=== PATIENT | female | born 1935 | race Caucasian/White ===

== ENCOUNTER 2016-12-31 07:12 | Inpatient (IN) | payer MEDICARE, OTHER ==
[2016-12-31] MEDS ORDERED: Clopidogrel TAB* 75 MG PO ONE (07:50)
[2016-12-31 08:09] LABS: Comments Flag Yes; Hematocrit 20 % (35-47); Mean Corpuscular HGB Conc 30 g/dl (31-36); Mean Corpuscular Hemoglobin 25 pg (27-31); Mean Corpuscular Volume 84 fL (80-97); Mean Platelet Volume 11 um3 (7.4-10.4); Red Blood Count 2.37 10^6/ul (4.0-5.4); Red Cell Distribution Width 18 % (10.5-15)
[2016-12-31 08:10] LABS: Add Diff/Slide Review? Slide Review Added
[2016-12-31 08:16] LABS: Albumin 3.3 g/dL (3.2-5.2); BUN/Creatinine Ratio 22.2 (8-20); Calcium 8.5 mg/dL (8.6-10.3); EGFR African American 40.5 (>60); EGFR Non-African American 31.5 (>60); Magnesium 1.9 mg/dL (1.9-2.7); Potassium 4.1 mmol/L (3.5-5.0); Total Bilirubin 0.8 mg/dL (0.2-1.0); Total Protein 6.3 g/dL (6.4-8.9)
[2016-12-31 08:25] LABS: Troponin I 0.13 ng/mL (<0.04)
--- NOTE | 2016-12-31 08:32 | RAD ---
Indication: Chest pain. Previous myocardial infarction. Comparison: November 25, 2016 Technique: Upright AP 0755 hours Report: Elevated lung volumes and mild to moderate coarsening of the interstitial markings. Subtle peripheral thickened interlobular markings. Small dependent pleural effusions with associated LEFT greater than RIGHT basilar atelectasis. Cardiomegaly. Mildly prominent central pulmonary vasculature. Unremarkable mediastinal contours. Gallbladder fossa level surgical clips. IMPRESSION: The constellation of findings is most consistent with mild interstitial edema. Small pleural effusions with associated LEFT greater than RIGHT basilar atelectasis. Correlate clinically to exclude pneumonia.
[2016-12-31 08:33] LABS: Hypochromasia 2+; Polychromasia 1+
[2016-12-31] MEDS ORDERED: NS 0.9% 1000 ML* 1,000 ML IV SCH (10:15)
[2016-12-31 11:05] LABS: Troponin I 0.46 ng/mL (<0.04)
[2016-12-31] MEDS ORDERED: Nitroglycerin TAB 0.4 MG* 0.4 MG TAB SL PRN (11:24)
[2016-12-31 12:08] LABS: Ferritin 19.5 ng/mL (11-307)
[2016-12-31 12:12] LABS: Folate 16.87 ng/mL (>3.99)
[2016-12-31] MEDS ORDERED: Albuterol 2.5 MG/3 ML NEB.SOL* (0.083%) INH PRN (12:34)
[2016-12-31 13:22] LABS: C Reactive Protein 4.2 mg/L (< 5.00)
[2016-12-31] MEDS: Cyanocobalamin TAB* 500 MCG PO SCH (13:44)
[2016-12-31] MEDS: Citalopram TAB* 20 MG PO SCH (13:44)
[2016-12-31] MEDS: Potassium Chlor TAB* 10 MEQ TAB.ER PO SCH (13:44)
[2016-12-31] MEDS: Magnesium Oxide TAB* 400 MG PO SCH (13:44)
[2016-12-31] MEDS: Amiodarone TAB* 200 MG PO SCH (13:44)
--- NOTE | 2016-12-31 14:50 | ED ---
Jesu Barahona Matthew, scribed for Prieto Merino MD on 12/31/16 at 0728 . HPI Chest Pain - HPI Summary HPI Summary: An 81 y/o female presents to the ED with mid chest pain since 23:30 last night. The pain lasted throughout the night, was rated 7/10 in severity, and has since resolved. She states that the pain felt like indigestion, but would not alleviate. She has not taken any medications today. Associated symptoms include nausea, dizziness, and confusion. She denies SOB and diaphoresis. The patient has a Hx of CAD. She has frequent epistaxis. Her string top sealer is Dr. Pleitez. - History of Current Complaint Chief Complaint: EDChestPainROMI Time Seen by Provider: 12/31/16 07:16 Hx Obtained From: Patient Onset/Duration: Started Hours Ago, Atraumatic, Resolved Time of Onset: 23:30 - yesterday Timing: Constant Initial Severity: Moderate Current Severity: None Pain Intensity: 7 Pain Scale Used: 0-10 Numeric Chest Pain Location: Mid Sternal Chest Pain Radiates: No Character: Other: - indigestion Associated Signs and Symptoms: Positive: Chest Pain, Dizziness, Nausea, Other: - confusion. Negative: Shortness of Breath, Diaphoresis - Allergy/Home Medications Allergies/Adverse Reactions: Allergies Allergy/AdvReac Type Severity Reaction Status Date / Time Cephalexin AdvReac Intermediate GI Upset Verified 12/31/16 07:47 Ibuprofen AdvReac Nausea Verified 12/31/16 07:47 METALS Allergy Unknown Rash Uncoded 12/31/16 07:47 CHESTNUTS Allergy LIPS SWELL Uncoded 12/31/16 07:47 AND ARE VERY PAINFUL PEANUTS Allergy Swelling Uncoded 12/31/16 07:47 Of Face,Lips,& Throat SEASONAL Allergy STUFFY Uncoded 12/31/16 07:47 HAYFEVER/ENVIRONMENTAL NOSE, WATERY EYES msg AdvReac Mild headache; Uncoded 12/31/16 07:47 jitters Home Medications: Home Medications Mupirocin 2% OINT* [Bactroban 2 % Oint*] 1 applic TOPICAL BID 12/31/16 [History Confirmed 12/31/16] PMH/Surg Hx/FS Hx/Imm Hx Endocrine/Hematology History: Reports: Hx Anticoagulant Therapy Denies: Hx Diabetes, Hx Thyroid Disease Cardiovascular History: Reports: Hx Angina - RARELY USES NITRO, Hx Cardiomegaly , Hx Coronary Artery Disease - ON MED, Hx Hypercholesterolemia, Hx Hypotension - current, Hx Hypertension - ON MED, 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, Other Cardiovascular Problems/Disorders - fem pop , L CEA, cardiac cath oct Denies: Hx Congestive Heart Failure, Hx Deep Vein Thrombosis, Hx Pacemaker/ ICD Respiratory History: Reports: Hx Asthma - POSSIBLY IN THE PAST, Hx Pneumonia Denies: Hx Chronic Obstructive Pulmonary Disease (COPD), Hx Lung Cancer GI History: Reports: Other GI Disorders - CHRONIC CONSTIPATION-TAKES LAXATIVE DAILY Denies: Hx Gall Bladder Disease, Hx Gastroesophageal Reflux Disease, Hx Gastrointestinal Bleed, Hx Ulcer, Hx Urosepsis History: Denies: Hx Kidney Stones, Hx Renal Disease, Other Problems/Disorders Musculoskeletal History: Reports: Hx Arthritis - HANDS & FEET Denies: Hx Rheumatoid Arthritis, Hx Osteoporosis Sensory History: Reports: Hx Cataracts - BILAT, Hx Contacts or Glasses Denies: Hx Hearing Aid Opthamlomology History: Reports: Hx Cataracts - BILAT, Hx Contacts or Glasses Neurological History: Reports: Hx Headaches - TAKES TRAMADOL PRN, Hx Migraine Denies: Hx Dementia, Hx Seizures, Hx Transient Ischemic Attacks (TIA) Psychiatric History: Reports: Hx Anxiety - ON MED, Hx Depression - ON MED - Cancer History Cancer Type, Location and Year: skin cancerleft leg ? type. Hx Chemotherapy: No Hx Radiation Therapy: No - Surgical History Surgery Procedure, Year, and Place[place] [facility] [place], [place] [facility] [place] surgery. BILAT.[place] [facility] [place] Left carotid endardectomy. Right first toe, first joint replacement, 2005, [place]. LIGATION OF ETHMOIDAL INTERNAL MAXILIARY ARTERIES. MYLEOGRAM. LASER SURGERY FOR EPISTAXIS X 6 OVER PAST 10 YEARS Hx Anesthesia Reactions: No - Immunization History Date of Tetanus Vaccine: up to date Date of Influenza Vaccine: up to date Infectious Disease History: No Infectious Disease History: Denies: Hx Clostridium Difficile, Hx Hepatitis, Hx Human Immunodeficiency Virus (HIV), Hx of Known/Suspected MRSA, Hx Shingles, Hx Tuberculosis, History Other Infectious Disease, Traveled Outside the [place] in Last 30 Days - Family History Known Family History: Positive: Hypertension Negative: Cardiac Disease - Social History Alcohol Use: Rare Alcohol Amount: a glass of wine a few times a week Hx Substance Use: No Substance Use Type: Reports: None Hx Tobacco Use: Yes Smoking Status (MU): Former Smoker Type: Cigarettes Amount Used/How Often: 1 PPD Length of Time of Smoking/Using Tobacco: 47 YEARS Have You Smoked in the Last Year: No Review of Systems Constitutional: Negative Negative: Skin Diaphoresis Eyes: Negative ENT: Negative Positive: Chest Pain - since resolved Negative: Shortness Of Breath Gastrointestinal: Negative Negative: Nausea Genitourinary: Negative Musculoskeletal: Negative Skin: Negative Neurological: Other - confusion; dizziness Psychological: Normal All Other Systems Reviewed And Are Negative: Yes Physical Exam Triage Information Reviewed: Yes Vital Signs On Initial Exam: Initial Vitals Temp Pulse Resp BP Pulse Ox 98.6 F 83 16 81/56 94 12/31/16 07:15 12/31/16 07:15 12/31/16 07:15 12/31/16 07:15 12/31/16 07:15 Vital Signs Reviewed: Yes Appearance: Positive: Well-Appearing, No Pain Distress Skin: Positive: Warm, Pale Eyes: Positive: Normal, EOMI, ANDIE ENT: Positive: Normal ENT inspection Neck: Positive: Supple, Nontender Respiratory/Lung Sounds: Positive: Clear to Auscultation, Breath Sounds Present Cardiovascular: Positive: Normal, RRR. Negative: Murmur Abdomen Description: Positive: Nontender, Other: - Rectal exam done with nurse Morena in the room. Neg for gross blood and guiac neg. Musculoskeletal: Positive: Normal, Strength/ROM Intact Neurological: Positive: Normal, Sensory/Motor Intact, Alert, Oriented to Person Place, Time, CN Intact II-III Psychiatric: Positive: Normal - Nichelle Coma Scale Best Eye Response: 4 - Spontaneous Best Motor Response: 6 - Obeys Commands Best Verbal Response: 5 - Oriented Coma Scale Total: 15 Diagnostics - Vital Signs Vital Signs Temp Pulse Resp BP Pulse Ox 12/31/16 07:15 98.6 F 83 16 81/56 94 - Laboratory Lab Results: Lab Results 12/31/16 Range/Units 07:30 WBC 9.0 (3.5-10.8) 10^3/ul RBC 2.37 L (4.0-5.4) 10^6/ul Hgb Pending Hct 20 L (35-47) % MCV 84 (80-97) fL MCH 25 L (27-31) pg MCHC 30 L (31-36) g/dl RDW 18 H (10.5-15) % Plt Count 185 (150-450) 10^3/ul MPV 11 H (7.4-10.4) um3 Neut % (Auto) 68.8 (38-83) % Lymph % (Auto) 18.4 L (25-47) % Coosa % (Auto) 9.4 H (1-9) % Eos % (Auto) 2.3 (0-6) % Baso % (Auto) 1.1 (0-2) % Absolute Neuts (auto) 6.2 (1.5-7.7) 10^3/ul Absolute Lymphs (auto) 1.7 (1.0-4.8) 10^3/ul Absolute Monos (auto) 0.8 (0-0.8) 10^3/ul Absolute Eos (auto) 0.2 (0-0.6) 10^3/ul Absolute Basos (auto) 0.1 (0-0.2) 10^3/ul Absolute Nucleated RBC 0.01 10^3/ul Nucleated RBC % 0.1 Result Diagrams: 12/31/16 07:30 12/31/16 07:30 Lab Statement: Any lab studies that have been ordered have been reviewed, and results considered in the medical decision making process. - Radiology CXR Xray Interpretation: Positive (See Comments) Radiology Interpretation Completed By: Radiologist - EKG 7:10 Cardiac Rate: NL - 72 bpm EKG Rhythm: Sinus Rhythm EKG Interpretation: LBBB EKG Comparison: No Significant Change - 12/23/16 Chest Pain Course/Dx - Course Course Of Treatment: 81 yr old with elevation of troponin, and anemia. she has CAD. She states she has chronic nose bleeds. Rectal negative for blood. She will be admitted by hospitalists, most likely transfused and further worked up by them. - Diagnoses Provider Diagnoses: Chest pain, Anemia - Provider Notifications Discussed Care Of Patient With: Dr. Richard (Hospitalist) at 09:11 -- Notified of patient's history and will admit the patient. Discharge - Discharge Plan Condition: Stable Disposition: ADMITTED TO [facility] Referrals: Grecia Anderson MD [Primary Care Provider] - The documentation as recorded by the scribeJesu Matthew accurately reflects the service I personally performed and the decisions made by me, Prieto Merino MD.
[2016-12-31] MEDS ORDERED: Furosemide IV* 10 MG/ML 10 ML VIAL (100 MG) IV ONE (15:00)
[2016-12-31] MEDS ORDERED: Furosemide IV* 10 MG/ML 2 ML VIAL (20 MG) IV ONE (15:00)
[2016-12-31 16:01] LABS: Urine Bacteria Absent (Absent); Urine Bilirubin Negative (Negative); Urine Glucose Negative (Negative); Urine Nitrite Negative (Negative)
[2016-12-31 17:25] LABS: Hematocrit 32 % (35-47); Hemoglobin 10.3 g/dl (12.0-16.0); Maturation Factor Retic 1.5; Mean Corpuscular HGB Conc 32 g/dl (31-36); Mean Corpuscular Hemoglobin 27 pg (27-31); Mean Corpuscular Volume 83 fL (80-97); Mean Platelet Volume 11 um3 (7.4-10.4); Red Blood Count 3.88 10^6/ul (4.0-5.4); Red Cell Distribution Width 17 % (10.5-15); White Blood Count 11.4 10^3/ul (3.5-10.8)
--- NOTE | 2016-12-31 18:06 | PN ---
Progress Note - Progress Note SOAP: Subjective: [] Chest pain last night that did not go away. Has been tired recently but not sure when became worse. Lives a quiet life. HEMATOLOGIC HISTORY: Recurrent iron deficiency anemia, has had very low Hgb in past. GI w/u negative 4 yrs ago but did not tolerate capsule study. Repeat EGD 2016 negative. Tx PRBC in the past and IV iron in last 2014. Recently has been stable, last seen in October. Current hypothesis is periodic small bowl bleed. Acetaminophen (Tylenol Tab*) 650 mg PO Q6H PRN PRN Reason: FEVER/PAIN Albuterol (Ventolin 2.5 Mg/3 Ml Neb.Erin*) 2.5 mg INH Q4H PRN PRN Reason: SOB/WHEEZING Amiodarone HCl (Cordarone Tab*) 100 mg PO DAILY [facility] Last Admin: 12/31/16 13:44 Dose: 100 mg Atorvastatin Calcium (Lipitor*) 40 mg PO BEDTIME [facility] Citalopram Hydrobromide (Celexa Tab*) 20 mg PO DAILY [facility] Last Admin: 12/31/16 13:44 Dose: 20 mg Clonazepam (Klonopin Tab(*)) 1 mg PO BEDTIME [facility] Cyanocobalamin (Vitamin B12 Tab*) 1,000 mcg PO DAILY [facility] Last Admin: 12/31/16 13:44 Dose: 1,000 mcg Gabapentin (Neurontin Cap(*)) 600 mg PO BEDTIME [facility] Magnesium Oxide (Magox 400 Tab*) 400 mg PO DAILY [facility] Last Admin: 12/31/16 13:44 Dose: 400 mg Mupirocin (Bactroban 2 % Oint*) 1 applic TOPICAL BID [facility] Nitroglycerin (Nitroglycerin Tab 0.4 Mg*) 0.4 mg SL Q5M PRN PRN Reason: ANGINA Pantoprazole Sodium (Protonix Iv*) 40 mg IV BID [facility] Potassium Chloride (Klor Con Er Tab*) 10 meq PO DAILY [facility] Last Admin: 12/31/16 13:44 Dose: 10 meq Tramadol HCl (Ultram*) 25 mg PO TID PRN PRN Reason: PAIN Objective: [] Vital Signs Temp Pulse Resp BP Pulse Ox 99.1 F 86 22 185/70 97 12/31/16 16:00 12/31/16 17:06 12/31/16 17:06 12/31/16 17:06 02/04/17 17:06 HEENT - Pale but better then described, just finished second U PRBC. CTA Distant S1S2, regular. Good BS, NT/ND Ext w/o C/C/E, punch machine hand feet. Neuro alert and oriented but otherwise differed. Assessment: []81 year old with intermittent iron deficiency anemia thought second to occult GI bleeding. Has been quite anemic in past, Hgb to 7.2 in 02/2015. Has had negative GI work up in past and is followed by Dr. oCsta. Plan: []1. S/P transfusion of PRBC and increased Hgb 2. IV iron starting tomorrow. Ferrlecit 125 mg daily 3. Will follow counts. 4. Evaluation PVD and CAD ongoing. 5. Will need closer follow up CBC after discharge, monthly blood count.
[2016-12-31 18:20] LABS: Erythrocyte Sed Rate 27 mm/Hr (0-40)
[2016-12-31 18:30] LABS: Corrected Retic Count 1.5 % (0.5-1.5); Immature Retic Fraction 0.44
--- NOTE | 2016-12-31 18:54 | HP ---
ATTENDING PHYSICIAN ADDENDUM NOW INCLUDED ON THIS REPORT HISTORY AND PHYSICAL: DATE OF ADMISSION: 12/31/16 PROVIDER: Mary Ovalles NP ATTENDING PHYSICIAN: Minna Duckworth MD *(report dictated by Mary Ovalles NP) PRIMARY CARE PROVIDER: Dr. Grecia Anderson. CARDIOLOGISTS: Dr. Pleitez. Dr. Moody and Dr. Rehman of [facility]. ONCOLOGIST: Dr. Adams. ENT: Dr. Cornell. CHIEF COMPLAINT: Chest pain. HISTORY OF PRESENT ILLNESS: Ms. Gutierrez is an 81-year-old female with a complex past medical history including coronary artery disease status post NSTEMI in 2013, history of VT cardiac arrest thought to be secondary to hypokalemia, nonobstructive coronary artery disease, history of orthostatic hypotension, peripheral vascular disease, history of multiple myeloma, who presents to the emergency department today with complaint of sudden onset of chest pain starting in the middle of the night. Ms. Gutierrez reports over the past several months, she has had dyspnea, shortness of breath, fatigue, and has been followed closely by her piece dye worker Dr. Pleitez as well as has been referred to cardiologists Dr. Moody and Dr. Rehman in [place] at [facility]. The patient currently is being evaluated for possible need for cardiac catheterization as well as mitral valve replacement and is currently being worked up by [facility] piece dye worker at this time. In regards to the patient's chest pain she experienced in the night, she reports around 2 a.m. she woke up and had midsternal chest pain, stating it is felt like a squeezing sensation which lasted most of the night. She reports she took 3 nitroglycerin without resolution and when it did not resolve, her called EMS and she was brought to the emergency department for further evaluation. It is noted on the EMS report that her systolic blood pressure was in the 60s on arrival. In the emergency department, the patient reports that her chest pain resolved as soon as she got to the emergency department. Her troponin is noted initially to be 0.13 on admission. Her EKG shows sinus rhythm with left bundle branch block. In comparison to prior EKGs, no changes noted. As well, the patient is noted to have hemoglobin/hematocrit of 6.0/20. The patient denies any rectal bleeding. No melena. The patient denies vaginal bleeding. Denies abdominal pain, nausea, vomiting, or diarrhea. The patient reports dyspnea, shortness of breath, fatigue, dizziness with change of positions but states this has been her baseline for several months. The patient has a history of multiple myeloma being followed by Dr. Adams, last time seen was in October. She also has a history of severe epistaxis, last episode was 11/25/16 when she was seen in our emergency department and transferred to [facility] due to uncontrolled bleeding. She is not sure if she has had her hemoglobin checked since. The patient denies any recent upper respiratory symptoms. No cough, fever, or chills. PAST MEDICAL HISTORY: 1. Nonobstructive coronary artery disease. 2. 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 3. Coronary artery disease status post NSTEMI in 2013. 4. Hyperlipidemia. 5. Anxiety. 6. History of orthostatic hypotension, previously on Florinef. 7. History of aspiration pneumonia. 8. Irritable bowel syndrome. 9. B12 deficiency. 10. Peripheral vascular disease. 11. Status post carotid endarterectomy. 12. History of migraines. 13. GERD. 14. Hypertension. 15. Depression. 16. Coronary artery disease. Recent cardiac catheterization 11/26/14 at [facility] revealed a clean left main, moderate wall irregularities in the LAD, 50% occlusion in the mid circ, right coronary artery had 30% proximal occlusion followed by 40% distal occlusion. Ejection fraction was 60%. 17. Degenerative arthritis. 18. Chronic back and neck pain. PAST SURGICAL HISTORY: 1. Status post fem-pop bypass. 2. Tubal ligation. 3. Cholecystectomy in 1993. 4. ROXANNE-BSO 1983. 5. Nasal septotomy, ligation nasal arteries 1998. 6. Nasal surgery for epistaxis multiple x7 to 8 per . HOME MEDICATIONS: 1. Bactroban 2% one application topical b.i.d. 2. Acetaminophen 650 mg p.o. t.i.d. p.r.n. 3. Lipitor 40 mg p.o. at bedtime. 4. Aspirin EC low dose 81 mg p.o. daily. 5. Amiodarone 100 mg p.o. daily. 6. Neurontin 600 mg p.o. at bedtime. 7. Lexapro 10 mg p.o. daily. 8. Vitamin B12 1000 mcg p.o. daily. 9. Probiotic one cap p.o. daily. 10. Potassium chloride 10 mEq p.o. daily. 11. Nitroglycerin 0.4 mg sublingual q. 5 minutes p.r.n. 12. Melatonin 3 mg p.o. at bedtime. 13. Magnesium oxide 400 mg p.o. daily. 14. Klonopin 1 mg p.o. bedtime. 15. Rivastigmine 3 mg p.o. b.i.d. 16. Tramadol 25 mg p.o. t.i.d. p.r.n. ALLERGIES: 1. CEPHALEXIN, GI upset. 2. IBUPROFEN, nausea. 3. METALS, rash. 4. CHESTNUTS, lip swelling. 5. PEANUTS, anaphylactic reaction. 6. MSG, seasonal. FAMILY HISTORY: Reviewed and noncontributory. SOCIAL HISTORY: Former tobacco abuse, quitting approximately little over 20 years ago. The patient currently lives independently with her , Dawit Gutierrez, who she lists her healthcare proxy. REVIEW OF SYSTEMS: A 14-point review of systems was performed. All the pertinent positives and negatives are mentioned in the history of present illness. All the remaining systems are negative. PHYSICAL EXAMINATION GENERAL APPEARANCE: Alert and oriented x3, 81-year-old female, lying in the emergency room stretcher, in no acute distress. Good historian. VITAL SIGNS: Temperature is 98.9, heart rate 89, respirations 16, O2 sat 97% on 2 L nasal cannula, blood pressure 115/62. HEENT: Head is normocephalic, atraumatic. Pupils are equal, reactive to light. Good dentition. RESPIRATORY: No accessory muscle use. Lungs are clear to auscultation bilaterally. CARDIAC: S1, S2. No murmurs, rubs, or gallops appreciated. JVD noted bilaterally at 20% degree angle. ABDOMEN: Soft, nontender, nondistended. Normal bowel sounds x4. MUSCULOSKELETAL: No clubbing or cyanosis noted. SKIN: No rashes, lesions, or open wounds noted. NEUROLOGIC: Grossly intact sensation to lower extremities, intact to light touch. PSYCH: Alert and oriented x3. Appropriate to situation. LABORATORY DATA AND DIAGNOSTIC STUDIES: WBC is 9.0, RBC 2.37, HGB 6.0, HCT 20 , MCV 84, MCH 25, MCHC 30, RDW 18, platelet count 185, INR 1.02. Sodium 135, potassium 4.1, chloride 109, carbon dioxide 24, anion gap 2, BUN 35, creatinine 1.50, glucose 85, lactic acid 1.7, calcium 8.5, magnesium 1.9. Iron 15, TIBC 456, ferritin 19. Total bilirubin 0.80, AST 43, ALT 30, alkaline phosphatase 85 , lactate dehydrogenase 266. Troponin 0.13, BNP 706. Total protein 6.3, albumin 3.3, folate 16.87. Chest x-ray. Impression: The constellation of the finding was mostly consistent with mild interstitial edema. Small pleural effusions with associated left greater than right basilar atelectasis. Correlate clinically to exclude pneumonia. EKG. Sinus rhythm with left bundle branch block with the rate of 88. In comparison to prior EKGs, no changes noted. ASSESSMENT AND PLAN: Ms. Gutierrez is an 81-year-old female with past medical history of coronary artery disease, status post non-ST elevation myocardial infarction, history of ventricular tachycardia cardiac arrest thought to be secondary to hypokalemia, peripheral vascular disease, status post fem-pop bypass, and carotid endarterectomy, history of multiple myeloma who presents to the emergency department today with report of chest pain, found to have hemoglobin of 6, her troponin of 0.13. 1. Elevated troponin. The patient's chest pain has resolved since coming to the emergency department. Her second troponin is 0.46. Possibly secondary to her anemia versus demand ischemia or non-ST elevation myocardial infarction. The patient cannot be anticoagulated due to her hemoglobin of 6. Emergency room physician did gave the patient Plavix. I spoke with piece dye worker Dr. Isaacs who will see the patient in consultation. Plan to obtain records from [place] from Dr. Moody and Dr. Rehman for better understanding of the patient's medical history as she was just seen this week by Dr. Rehman. Continue to trend troponins and EKGs. 2. Anemia, unclear etiology. The patient has heme-stool negative, however it is possible she has an upper GI bleed. She had been worked up in the past for GI bleed and was supposed to undergo a capsule study but was not able to. Plan to give the patient 2 units of packed red blood cells now. Give lasix mg IV between units. H and H q. 6 hours. Question if the patient's symptoms of dyspnea, dizziness and chest pain are secondary to her anemia. Spoke with Dr. Aguilar who will see the patient in consultation - he follows her for iron deficiency anemia. 3. Coronary artery disease with history of ventricular tachycardia. Continue amiodarone, statin, hold aspirin at this time until her anemia is stable. 4. Chronic neck and back pain. Continue acetaminophen p.r.n. and hold tramadol. 5. Depression/anxiety. Continue Lexapro, hold Klonopin. 6. History of orthostatic hypotension. The patient currently is no longer on Florinef. She was noted to have soft blood pressures in the emergency department systolically in the 80s and 90s to low 100s, per patient this is her baseline. 7. Deep vein thrombosis prophylaxis. Sequential compression devices only in the setting of anemia. 8. Code status DNR, MOLST is on the chart. TIME SPENT: Approximately 75 minuets was spent on this admission. This case was discussed with attending physician Dr. Duckworth, who agrees the plan of care. MARY OVALLES NP ADDENDUM: DATE OF ADMISSION: 12/31/16 Ms. Gutierrez is an 81-year-old female with a history of coronary artery disease and iron deficiency anemia who presented to the hospital on 12/31/16, complaining of chest pain with hemoglobin of 6. Initially, her stool Hemoccult was negative for blood. The patient is being admitted to the ICU. She is going to be transfused packed red blood cells. The patient also has elevated troponin and Cardiology as well as Hematology are going to be consulted. For further details of the patient's presentation and plan, please see history and physical dictated by Mary Ovalles NP, on 12/31/16 with which I agree. MINNA DUCKWORTH MD CC: Dr. Grecia Anderson; Dr. Pleitez; Dr. Moody and Dr. Rehman of [facility]; Dr. Adams; Dr. Cornell. * [id number]/[facility] #: [id number]/[facility] #: [id number] [facility]
--- NOTE | 2016-12-31 19:34 | CONS ---
CC: Grecia Anderson MD; Tina Pleitez MD; Hospitalist CARDIOLOGY CONSULTATION: DATE OF CONSULT: 12/31/16 REASON FOR CONSULT: Chest pain and elevation in troponins. CHIEF COMPLAINT: Chest pain. HISTORY OF PRESENT ILLNESS: Ms. Gutierrez is an 81-year-old woman followed by my partner, Dr. Tina Pleitez, for coronary artery disease, peripheral vascular disease and valvular heart disease. In reviewing Dr. Pleitez's notes and talking with Dr. Rhonda Rehman at [facility] whom she saw this week, the patient had seen Dr. Toni Moody for evaluation for possible aortic and/or mitral valve surgery, she was unable to be catheterized at [facility] in October as the catheters were unable to be engaged. She saw Dr. Rehman on December 29. On exam, he felt that she likely has bilateral subclavian stenosis. An echo done in his office per verbal report showed moderate valvular disease with moderate aortic valve stenosis, moderate aortic insufficiency and moderate mitral insufficiency. His future plans included a CT angiogram with runoff to the the neck, chest and abdomen to evaluate the subclavian vessels, the carotids, the vertebrals, and the abdomen; the abdomen was to evaluate the arterial vasculature to see why there was difficulty passing the cardiac catheters in October. The patient was in her usual chronically debilitated health until this morning. She awoke with low substernal chest discomfort, it was different than her angina was in the past. There was some nausea with this and it cleared on its own without any intervention and she was pain free at the time I saw her. Dinner last night was bland, fish. She denies any epigastric or abdominal pain after eating. In the emergency room, she was found to have acute on top of chronic anemia. She has chronic renal insufficiency. Her initial troponin was mildly elevated. She was found to be quite hypotensive with peripheral blood pressures in the 60s to 80s, although clinically she looked like her blood pressures were higher. PAST MEDICAL HISTORY: Coronary artery disease, non-STEMI in October 2014. Cath showed luminal irregularities of the LAD, 50% occlusion of the left circumflex, right coronary artery had 30% proximal followed by 40% more distal occlusions. Peripheral vascular disease status post left-sided carotid endarterectomy and bilateral fem-pop bypass surgery, Ventricular tachycardia in the setting of hypokalemia, and cardiac arrest in the distant past, Valvular heart disease: aortic valve stenosis, moderate with moderate aortic insufficiency, moderate mitral stenosis, moderate to severe mitral insufficiency , Hypertension, Dyslipidemia, Hhronic headaches, Epistaxis, Degenerative arthritis. Orthostatic hypot[facility] GI bleeding with anemia, history of 2 units packed red blood cells in April 2015 , subsequently controlled with daily iron, and heme-positive stools in the past. B12 deficiency. Chronic renal insufficiency. PAST SURGICAL HISTORY: Includes; femoral bypass bilaterally in 1996, carotid endarterectomy in 2003, cholecystectomy in 1993, tubal ligation in 1973, hysterectomy in 1983, nasal septoplasty in 1998, and additional surgeries for epistaxis, ligation of the internal maxillary arteries in 1998. CURRENT INPATIENT MEDICATIONS: Include: 1. Albuterol nebulizers. 2. Amiodarone 100 mg a day. 3. Lipitor 40 mg a day. 4. Celexa 20 mg a day. 5. B12 at 1000 mg a day. 6. Neurontin 600 mg q.h.s. 7. Magnesium oxide 400 mg a day. 8. Bactroban topically. 9. Nitroglycerin p.r.n. 10. Potassium 10 mEq every day. Outpatient medications in addition to the above included: 1. Tramadol and Tylenol for headaches. 2. Aspirin 81 mg a day. 3. Probiotic. 4. Melatonin 3 mg q.h.s. 5. Magnesium oxide. 6. Klonopin 1 mg q.h.s. 7. Rivastigmine 3 mg b.i.d. ALLERGIES: Allergies and intolerance include; ASPIRIN, IBUPROFEN and BLOOD THINNERS (bleeding), METALS lead to a rash, MSG leads to hay fever, and she is allergic to CHESTNUTS. FAMILY HISTORY: According to the patient is negative for coronary or peripheral vascular disease. SOCIAL HISTORY: The patient is . Has a supportive . She stopped smoking 8 years ago. She smoked a pack and a half a day for 35 years. No alcohol intake. 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 REVIEW OF SYSTEMS: Significant in that she has chronic severe headaches, they are predominantly bilateral temporal and frontal. She has shoulder and arm pain , when she sits up she has posterior neck pain. She has nausea, she states that she is very debilitated and is unable to walk well due to feeling "wobbly" as well as bilateral hip pain left greater than right. She denies orthopnea, PND or exertional dyspnea and she denies exertional chest pain. She denies weight loss, anorexia, early satiety. She uses oxygen to sleep at night. All other review of systems was negative. PHYSICAL EXAM: The patient is a slight frail, chronically ill appearing woman, lying at 30 degrees, appears uncomfortable. She is 5 feet tall, weighs 108 pounds with a BMI of 21. Blood pressure is 112/56, pulse is 84, temperature 98.9, oxygen saturation on 2 L nasal cannula 97% to 100%. Psychologically, pleasant and cooperative. Neurologically, awake, alert, and oriented to person and place. I did not evaluate for time. Speech is articulate. Comprehension seems good and she follows commands well. Skin: Pale, but warm and dry. I did not appreciate cyanosis in the lips and nail beds. No rashes or other lesions appreciated. HEENT: Pupils are equal and round. Mucous membranes moderately moist. Tongue was midline. Neck had external and internal jugular distention. She has easily palpable carotid pulses. There is a left carotid endarterectomy scar that appears old and well healed. She has bilateral bruits , left is louder than right. Breath sounds distant but clear without wheezes, rales, or rhonchi. Coronary: Also a bit distant and muffled S1, S2 with an S4 gallop. Soft mid peaking systolic murmur heard in the right upper sternal border over the mitral area is muffled. I did not appreciate a diastolic murmur and very soft systolic murmur. Abdomen: Flat. Active bowel sounds. Soft. No epigastric discomfort. No appreciable hepatomegaly and she has bruits heard across the abdomen. She has easily palpable femoral pulses and easily palpable distal pulses on the lower extremities. The radial pulses are palpable but 1+ at best. DIAGNOSTIC STUDIES/LAB DATA: A 12-lead ECG from the emergency department today shows sinus rhythm, 88 beats a minute, QRS axis of -15. She has a left bundle branch block that is old and when this EKG is compared with her EKG of August of 2016, I do not appreciate that the ST-T wave changes seen are different. Chest x-ray showed mild interstitial edema with small pleural effusions left greater than right. Outpatient studies include: Carotid Doppler from 06/01/16 done at [facility] showing 50% to 69% occlusion on the right internal carotid artery, stable status post left carotid endarterectomy with no hemodynamic findings and there is antegrade flow in the right vertebral artery and retrograde flow within the left vertebral artery, unchanged. Transesophageal echo from 09/21/16 at [facility] showed mild to moderate left ventricular hypertrophy with an ejection fraction of 50% to 55%. Negative for patent foramen ovale. Moderate aortic insufficiency. Moderate aortic stenosis with a mean gradient of 33 mmHg and aortic valve area of 0.8 cm cleared by VTI dimensional index 0.35. Moderate mitral stenosis, moderate to severe mitral insufficiency, mean gradient across the mitral valve 9.6 mmHg. Mild tricuspid insufficiency. PA pressure unable to be estimated. EGD, 03/03/16, Dr. Martinez showed no obstructing esophageal stricture. Complete upper endoscopy into the distal duodenum without abnormalities noted. Current labs include: White count of 9, hemoglobin 6.0, hematocrit 20 ( baseline November 25 hematocrit 29 and November 03 hematocrit 35), mean cell volume 84, platelet 185. Sodium 135, potassium 4.1, chloride 109, bicarb 24, glucose 85, BUN 35, creatinine 1.58 (stable creatinine), magnesium 1.9, calcium 8.5, ferritin 19.5, TIBC 456, iron of 15, AST 43, ALT 30, troponin #1 of 0.13, troponin #2 of 0.46, BNP of 706, folate 16.87, INR 1.02. Stool guaiac was negative for heme today. On 06/01/16, LDL cholesterol was 38, total cholesterol was 110, triglycerides 68, and HDL cholesterol was 58. SUMMARY: Sirisha Gutierrez is an 81-year-old woman with diffuse vascular disease involving the coronaries and peripheral vasculature diffusely and additionally, she has valvular heart disease involving the aortic and mitral valves as above. Sirisha developed substernal/epigastric chest pain while sleeping. Has mild elevation in troponins, chronic left bundle branch block and acute on top of chronic anemia. The patient is very complex. I share Dr. Rehman's concerns about the possibility of subclavian stenosis, which could contribute to her headaches and arm pain among other symptoms and low blood pressure based on a brachial cuff. I feel we should proceed with expediting the CT angiograms with runoff to follow up on this and include one of the abdomen to evaluate her vasculature and and candidacy for cardiac catheterization from the femoral approach. For the patient's chest pain and elevated troponins, this raises the possibility of progression of her coronary atherosclerotic disease even if her pain is different than her typical anginal pattern. In addition to amiodarone, I consider adding a pure beta mercedes to her current regimen (although this may need to be done cautiously and consideration could be made for adding a low dose of amlodipine or nitrates instead, as beta mercedes can worsen peripheral vascular disease). I think we should attempt to get true arterial blood pressures, leg pressures may be more accurate, so we do not hold antianginal medications due to erroneous peripheral readings in the upper extremities. For the patient's anemia, I agree with transfusion, but additionally we need to identify potential etiology of her acute on top of chronic bleeding. If she were to undergo cath with the aim of intervention, we would need to understand her bleeding in order to determine if it would be safe for stents and antiplatelet agents in addition to the aspirin that she has been on. The patient is at risk for intestinal angina from her peripheral vascular disease as an etiology of her chest pain. She is at risk for AVM's related to her aortic valve stenosis as an acute bleeding source. For the patient's atherosclerotic risk, she stopped smoking for many years. Her lipids when last checked were under excellent control. I would continue with her statin. For the patient's congestive heart failure, she is likely going to need diuretics with her packed red blood cells and we should monitor her carefully, although her left ventricular systolic function is good, her valvular heart disease puts her at risk for diastolic congestive heart failure, especially with anemia and higher heart rates, beta blockers as above could help with this , if we can establish that in accurate central blood pressure, consideration of low dose of Cardizem might additionally be another option for her, but I would start with short acting medication and titrate. Overall, Ms. Gutierrez is an elderly woman with diffuse vascular disease and very complex presenting with chest pain, mild elevation in troponins and acute anemia. Workup as above. She is a high risk patient overall. [id number]/[facility] #: [id number] MTDD
[2016-12-31] MEDS ORDERED: Analgesic BALM* 114 GM TOPICAL PRN (20:18)
[2016-12-31] MEDS: Gabapentin CAP(*) 300 MG PO SCH (21:10)
[2016-12-31] MEDS: Pantoprazole IV* 40 MG IV SCH (21:10)
[2016-12-31] MEDS: clonazePAM TAB(*) 1 MG PO SCH (21:10)
[2016-12-31] MEDS: Atorvastatin* 40 MG TAB PO SCH (21:10)
[2016-12-31] MEDS: Mupirocin 2% OINT* TUBE TOPICAL SCH (21:11)
[2017-01-01] MEDS: traMADol TAB* 50 MG PO PRN ×2 (00:28→21:22)
[2017-01-01 00:41] LABS: Hematocrit 31 % (35-47); Hemoglobin 9.7 g/dl (12.0-16.0)
[2017-01-01 06:09] LABS: Hematocrit 29 % (35-47); Hemoglobin 9.4 g/dl (12.0-16.0); Mean Corpuscular HGB Conc 33 g/dl (31-36); Mean Corpuscular Hemoglobin 27 pg (27-31); Mean Corpuscular Volume 82 fL (80-97); Mean Platelet Volume 11 um3 (7.4-10.4); Red Blood Count 3.52 10^6/ul (4.0-5.4); Red Cell Distribution Width 17 % (10.5-15); White Blood Count 10.7 10^3/ul (3.5-10.8)
[2017-01-01 06:17] LABS: BUN/Creatinine Ratio 18.5 (8-20); Calcium 8.4 mg/dL (8.6-10.3); EGFR African American 42.6 (>60); EGFR Non-African American 33.2 (>60); Potassium 3.8 mmol/L (3.5-5.0)
[2017-01-01] MEDS ORDERED: Ferric Gluconate IV* 125 MG in NS 0.9% 100 ML* 100 ML IVPB ONE (09:00)
[2017-01-01] MEDS: Citalopram TAB* 20 MG PO SCH (09:07)
[2017-01-01] MEDS: Cyanocobalamin TAB* 500 MCG PO SCH (09:07)
--- NOTE | 2017-01-01 09:07 | PN ---
Subjective Date of Service: 01/01/17 - CC: chest pain Interval History: Feels much better. No recurrence of chest pain. No dyspnea. Medications Active Medications: Acetaminophen (Tylenol Tab*) 650 mg PO Q6H PRN PRN Reason: FEVER/PAIN Albuterol (Ventolin 2.5 Mg/3 Ml Neb.Erin*) 2.5 mg INH Q4H PRN PRN Reason: SOB/WHEEZING Amiodarone HCl (Cordarone Tab*) 100 mg PO DAILY [facility] Last Admin: 12/31/16 13:44 Dose: 100 mg Atorvastatin Calcium (Lipitor*) 40 mg PO BEDTIME [facility] Last Admin: 12/31/16 21:10 Dose: 40 mg Citalopram Hydrobromide (Celexa Tab*) 20 mg PO DAILY [facility] Last Admin: 12/31/16 13:44 Dose: 20 mg Clonazepam (Klonopin Tab(*)) 1 mg PO BEDTIME [facility] Last Admin: 12/31/16 21:10 Dose: 1 mg Cyanocobalamin (Vitamin B12 Tab*) 1,000 mcg PO DAILY [facility] Last Admin: 12/31/16 13:44 Dose: 1,000 mcg Gabapentin (Neurontin Cap(*)) 600 mg PO BEDTIME [facility] Last Admin: 12/31/16 21:10 Dose: 600 mg Ferric Sodium Gluconate Complex 125 mg/ Sodium Chloride 110 mls @ 110 mls/hr IVPB ONCE ONE Stop: 01/01/17 09:59 Magnesium Oxide (Magox 400 Tab*) 400 mg PO DAILY [facility] Last Admin: 12/31/16 13:44 Dose: 400 mg Multi-Ingredient Liniment/Rub (Neymar Lundberg*) 1 applic TOPICAL TID PRN PRN Reason: PAIN - APPLY TO NECK/SHOULDERS Last Admin: 12/31/16 21:10 Dose: 1 applic Mupirocin (Bactroban 2 % Oint*) 1 applic TOPICAL BID [facility] Last Admin: 12/31/16 21:11 Dose: 1 applic Nitroglycerin (Nitroglycerin Tab 0.4 Mg*) 0.4 mg SL Q5M PRN PRN Reason: ANGINA Pantoprazole Sodium (Protonix Iv*) 40 mg IV BID [facility] Last Admin: 12/31/16 21:10 Dose: 40 mg Potassium Chloride (Klor Con Er Tab*) 10 meq PO DAILY [facility] Last Admin: 12/31/16 13:44 Dose: 10 meq Tramadol HCl (Ultram*) 25 mg PO TID PRN PRN Reason: PAIN Last Admin: 01/01/17 00:28 Dose: 25 mg Objective Vital Signs: Temp Pulse Resp BP Pulse Ox 98.7 F 72 16 97/60 96 01/01/17 08:00 01/01/17 08:00 01/01/17 08:00 01/01/17 08:00 01/01/17 08:00 Oxygen Devices in Use Now: None Appearance: thin, frail woman, sitting eating breakfast. No acute distress. Eyes: No Scleral Icterus, PERRLA Ears/Nose/Mouth/Throat: Clear Oropharnyx, Mucous Membranes Moist Neck: NL Appearance and Movements; NL JVP Respiratory: Symmetrical Chest Expansion and Respiratory Effort, - - mildly decreased in the base. Cardiovascular: RRR - 2/6 systolic murmer late peaking RUSB, easily audible diastolic murmer RUSB, muffled heart sounds at the apex. Abdominal: NL Sounds; No Tenderness; No Distention Extremities: No Edema, No Clubbing, Cyanosis Skin: No Rash or Ulcers Neurological: Alert and Oriented x 3 Laboratory Results: 01/01/17 05:50 01/01/17 05:50 INR (Anticoag Therapy) 1.02 (0.89-1.11) 12/31/16 07:30 APTT 23.8 seconds (26.0-36.3) L 12/31/16 07:30 Total Bilirubin 0.80 mg/dL (0.2-1.0) 12/31/16 07:30 AST 43 U/L (13-39) H 12/31/16 07:30 ALT 30 U/L (7-52) 12/31/16 07:30 Alkaline Phosphatase 85 U/L (34-104) 12/31/16 07:30 B-Natriuretic Peptide 706 pg/mL (-100) H 12/31/16 07:30 Total Protein 6.3 g/dL (6.4-8.9) L 12/31/16 07:30 Albumin 3.3 g/dL (3.2-5.2) 12/31/16 07:30 Globulin 3.0 g/dL (2-4) 12/31/16 07:30 Albumin/Globulin Ratio 1.1 (1-3) 12/31/16 07:30 12/31/16 12/31/16 12/31/16 10:30 17:15 20:50 Troponin I 0.46 H* 0.81 H* 0.60 H* EKG Data: Sinus rhythm 70's, LBBB (chronic). Assessment/Plan 81 yo female with extensive coronary and peripheral vascular disease as well as aortic and mitral valvular heart disease admitted with substernal chest pain, different than typical angina, elevated troponins and acute on top of chronic anemia and hypotensive, possibly factitious with suspicion for bilateral subclavian stensosis. Improved clinically s/p PRBC and lasix between units. Points of Discussion: CP: Differential of angina vs. GI etiology. Medically manage both. Unable to be cathed in October, await CT scan with runoff to evaluate arterial vasculature and candidacy for cath in addition to diagnostic benefit wrt subclavian stenosis. Serial stool Guiac recommended. Consider consult with Dr. Stroud/Celso for PVD. CHF on exam yesterday resolved with PRBC and diuretics. HR lower, at less risk for high out put CHF on top of valvular heart disease. Keep I = O. Diagnose and stabilize anemia if able. See consult note for additional recommendations.
[2017-01-01] MEDS: Magnesium Oxide TAB* 400 MG PO SCH (09:08)
[2017-01-01] MEDS: Potassium Chlor TAB* 10 MEQ TAB.ER PO SCH (09:08)
[2017-01-01] MEDS: Amiodarone TAB* 200 MG PO SCH (09:08)
[2017-01-01] MEDS: Pantoprazole IV* 40 MG IV SCH ×2 (09:37→20:22)
[2017-01-01] MEDS: Mupirocin 2% OINT* TUBE TOPICAL SCH ×2 (09:38→20:22)
--- NOTE | 2017-01-01 09:48 | PN ---
Subjective Date of Service: 01/01/17 Interval History: patient reports she feels "much much better". no further CP. Reports her SOB is at her baseline. No rectal bleeding, bloody stool or melana. No N/V/D. Reports Objective Active Medications: Acetaminophen (Tylenol Tab*) 650 mg PO Q6H PRN PRN Reason: FEVER/PAIN Albuterol (Ventolin 2.5 Mg/3 Ml Neb.Erin*) 2.5 mg INH Q4H PRN PRN Reason: SOB/WHEEZING Amiodarone HCl (Cordarone Tab*) 100 mg PO DAILY [facility] Last Admin: 01/01/17 09:08 Dose: 100 mg Atorvastatin Calcium (Lipitor*) 40 mg PO BEDTIME [facility] Last Admin: 12/31/16 21:10 Dose: 40 mg Citalopram Hydrobromide (Celexa Tab*) 20 mg PO DAILY [facility] Last Admin: 01/01/17 09:07 Dose: 20 mg Clonazepam (Klonopin Tab(*)) 1 mg PO BEDTIME [facility] Last Admin: 12/31/16 21:10 Dose: 1 mg Cyanocobalamin (Vitamin B12 Tab*) 1,000 mcg PO DAILY [facility] Last Admin: 01/01/17 09:07 Dose: 1,000 mcg Gabapentin (Neurontin Cap(*)) 600 mg PO BEDTIME [facility] Last Admin: 12/31/16 21:10 Dose: 600 mg Ferric Sodium Gluconate Complex 125 mg/ Sodium Chloride 110 mls @ 110 mls/hr IVPB ONCE ONE Stop: 01/01/17 09:59 Last Admin: 01/01/17 09:36 Dose: 110 mls/hr Magnesium Oxide (Magox 400 Tab*) 400 mg PO DAILY [facility] Last Admin: 01/01/17 09:08 Dose: 400 mg Multi-Ingredient Liniment/Rub (Neymar Lundberg*) 1 applic TOPICAL TID PRN PRN Reason: PAIN - APPLY TO NECK/SHOULDERS Last Admin: 12/31/16 21:10 Dose: 1 applic Mupirocin (Bactroban 2 % Oint*) 1 applic TOPICAL BID [facility] Last Admin: 01/01/17 09:38 Dose: 1 applic Nitroglycerin (Nitroglycerin Tab 0.4 Mg*) 0.4 mg SL Q5M PRN PRN Reason: ANGINA Pantoprazole Sodium (Protonix Iv*) 40 mg IV BID [facility] Last Admin: 01/01/17 09:37 Dose: 40 mg Potassium Chloride (Klor Con Er Tab*) 10 meq PO DAILY [facility] Last Admin: 01/01/17 09:08 Dose: 10 meq Tramadol HCl (Ultram*) 25 mg PO TID PRN PRN Reason: PAIN Last Admin: 01/01/17 00:28 Dose: 25 mg Vital Signs 01/01/17 01/01/17 01/01/17 03:00 03:36 04:00 Temperature 99.3 F Pulse Rate 79 75 Respiratory 18 17 Rate Blood Pressure 122/54 116/54 (mmHg) O2 Sat by Pulse 95 96 Oximetry 01/01/17 01/01/17 01/01/17 05:00 05:52 06:00 Temperature Pulse Rate 73 76 75 Respiratory 17 16 17 Rate Blood Pressure 125/54 92/63 97/59 (mmHg) O2 Sat by Pulse 96 95 96 Oximetry 01/01/17 01/01/17 07:00 08:00 Temperature 98.7 F Pulse Rate 72 72 Respiratory 16 16 Rate Blood Pressure 100/52 97/60 (mmHg) O2 Sat by Pulse 97 96 Oximetry Oxygen Devices in Use Now: None Result Diagrams: 01/01/17 17:50 01/01/17 05:50 Additional Lab and Data: Lab Results 12/31/16 Range/Units 07:30 WBC 9.0 (3.5-10.8) 10^3/ul RBC 2.37 L (4.0-5.4) 10^6/ul Hgb Pending Hct 20 L (35-47) % MCV 84 (80-97) fL MCH 25 L (27-31) pg MCHC 30 L (31-36) g/dl RDW 18 H (10.5-15) % Plt Count 185 (150-450) 10^3/ul MPV 11 H (7.4-10.4) um3 Neut % (Auto) 68.8 (38-83) % Lymph % (Auto) 18.4 L (25-47) % Trigg % (Auto) 9.4 H (1-9) % Eos % (Auto) 2.3 (0-6) % Baso % (Auto) 1.1 (0-2) % Absolute Neuts (auto) 6.2 (1.5-7.7) 10^3/ul Absolute Lymphs (auto) 1.7 (1.0-4.8) 10^3/ul Absolute Monos (auto) 0.8 (0-0.8) 10^3/ul Absolute Eos (auto) 0.2 (0-0.6) 10^3/ul Absolute Basos (auto) 0.1 (0-0.2) 10^3/ul Absolute Nucleated RBC 0.01 10^3/ul Nucleated RBC % 0.1 Assess/Plan/Problems-Billing Assessment: 81 yo female with extensive coronary and peripheral vascular disease as well as aortic and mitral valvular heart disease admitted with substernal chest pain found to have elevated troponins and acute on chronic anemia. - Patient Problems (1) Elevated troponin Comment: - peaked at 0.81. No further CP since prior to coming to Hospital. Demand ischemia from anemia? - LBBB, no EKG changes noted - Appreciate cardiology consult. Plan to medically managed. Pt was unable to be cathed Oct 2016, Dr. Isaacs spoke to Dr. Sherie Giles who has been following the patient as an outpt. Plan for pt to undergo CTA with runoff to evaluate arterial vasculature and candidacy for cath in addition to diagnostic benefit wrt subclavian stenosis. CHF resolved after diuresing, PRBCs admin. continue to monitor closely. Daily weights. Plan for TTE today (2) Anemia Comment: - sarah of iron def anemia secondary to possible occult GI bleed? - HH 6 on admission. Transfused 2 units PRBCs now 9.4. Heme-negative stool. Serial stool for occult blood. Continue tranding HH. - Appreciate Dr. Montes consult; recurrent iron def anemia, plan for iron transfusion today. Will follow closely as outpt. - GI to consult - - Continue PPI (3) Hx of coronary artery disease Comment: - hx of non-stemi in 2013. cardiac cath 2013 showed luminal irregularities of the LAD, 50% occlusion of left circ, RCA 30% proximal followed by 40% more distal occlusions. - Hold ASA at this time with acute anemia (4) Left bundle branch block Comment: - known LBBB (5) PVD (peripheral vascular disease) Comment: s/p bilateral fem-pop PVD s/p left-sided carotid endarterectomy (6) Valvular disease Comment: aortic valve stenosis with mod aortic insufficiency, moderate mitral stenosis with mod-severe mitral insufficiency - pt has been following with Dr. Rehman at [facility] for possible (unlikely per cards) valve surgery (7) CKD (chronic kidney disease) Comment: appears to be at baseline. continue to monitor closely (8) DVT prophylaxis Comment: SCDS only (9) DNR (do not resuscitate) Comment: MOLST on chart Status and Disposition: inpatient with acute anemia and elevated troponins. Plan for 2nd portion of CTA tomorrow.
[2017-01-01] MEDS ORDERED: Iodixanol* (CONTRAST) 320 MG/ML 100 ML SDV IV ONE (11:36)
[2017-01-01 12:34] LABS: Hematocrit 31 % (35-47); Hemoglobin 9.9 g/dl (12.0-16.0)
--- NOTE | 2017-01-01 13:19 | RAD ---
INDICATION: Peripheral vascular disease. Post bilateral femoral bypass in 1996. Chest pain, anemia. Post cholecystectomy, hysterectomy. COMPARISON: June 01, 2016 ankle brachial indices and July 16, 2013 CT abdomen pelvis. TECHNIQUE: Multidetector CT images were obtained from the lung bases to the feet with 100 mL Visipaque 320 IV contrast. Full [id number] routine arterial phase and delayed arterial phase of the lower legs. Multiplanar reformation without and with maximum intensity projection. 3-D arterial volume rendering. REPORT: ABDOMINAL AORTA: Atherosclerotic plaque of normal diameter abdominal aorta. Negative for hemodynamic significant aortic stenosis. Approximate 90% short segment stenosis at the ostium of the celiac axis. Similar marked high-grade stenosis at the ostium of the superior mesenteric artery. Suggestion of 70% or greater ostial stenosis at the bilateral solitary renal arteries. No definitive inferior mesenteric artery visualized. RIGHT ILIAC and LOWER EXTREMITY ARTERIES: Patent aortic bifurcation/common iliac through RIGHT common femoral arterial bypass. Calcific plaque results in approximate 30-50% stenosis at the RIGHT common femoral artery. Patent profunda femoral and superficial femoral arteries. Patent popliteal artery. Vessel runoff to the RIGHT ankle. LEFT ILIAC and LOWER EXTREMITY ARTERIES: Patent aortic bifurcation/common iliac through LEFT common femoral arterial bypass. Patent LEFT common femoral, profunda femoral, superficial femoral, and popliteal arteries. Three-vessel runoff to the LEFT ankle. NON-VASCULAR FINDINGS: Moderate bilateral pleural effusions with partial RIGHT lower lobe and gross complete LEFT lower lobe atelectasis. Aerated lung is remarkable for emphysema. Cardiomegaly. While the stomach is largely decompressed limiting assessment. Suggestion of potential circumferential gastric wall thickening at the gastric body and proximal antrum. No additional abnormality of the bowel. Post cholecystectomy. Trace pelvic free fluid. Negative for free air or hernias. Normal adrenal glands. The kidneys demonstrate symmetric early cortical enhancement. Suggestion of multiple small bilateral foci of cortical atrophy similar to the prior exam likely reflecting sequela of previous embolic disease. Catheterized urinary bladder. Post hysterectomy. No lymphadenopathy visualized. IMPRESSION: 1. 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 High-grade stenosis of the bilateral renal arteries without gross change. 2. Patent bilateral aortic bifurcation through common femoral arterial bypass grafts. No hemodynamic significant intrinsic lower extremity arterial stenoses. Three-vessel runoff to the bilateral ankles. 3. Negative for aortic aneurysm. 4. Moderate bilateral pleural effusions with partial RIGHT lower lobe and gross complete LEFT lower lobe atelectasis. 5. Potential gastritis. As incomplete gastric distention limits assessment correlate with clinical presentation and consider upper GI series if deemed appropriate. 6. Moderately atrophic kidneys with suggestion of unchanged small peripheral cortical infarcts.
[2017-01-01] MEDS ORDERED: NS 0.9% 1000 ML* 1,000 ML IV SCH (13:45)
--- NOTE | 2017-01-01 13:53 | ECHO ---
Patient: KEESHA DOTSON [facility] Rec#: [id number] : 1935 Date: 01/01/2017 Age: 81y Height: 157 cm / 61.8 in Weight: 48 kg / 105.8 lbs Sex: F BSA: 1.46 Room#: [facility] Admit Date#: 12/31/2016 Type: Inpatient Referring: Noemy Archibald Reading: Justina Isaacs MD [employer] Room Supervisor: Bertrand Henry RDCS Transthoracic Echocardiogram Indication: CHEST PAIN BP: 97/55 HR: 73 Rhythm: NSR Findings History: CAD,STATUS POST NSTEMI PVD,GERD,HTN Technical Comments: The study is technically difficult. Complered [id number] The study is technically limited due to patient body habitus. Left Ventricle: The left ventricular chamber size is normal. Mild concentric left ventricular hypertrophy is observed. Moderate global hypokinesis of the left ventricle is observed. There is moderately decreased left ventricular systolic function. The estimated ejection fraction is 35-40%. Abnormal left ventricular diastolic function is observed. Left Atrium: The left atrium is mild to moderately dilated. Right Ventricle: The right ventricular cavity size is normal. The right ventricular global systolic function is normal. Right Atrium: The right atrium is mildly dilated. Aortic Valve: The aortic valve is trileaflet. The aortic valve leaflets are mildly thickened. Mild aortic leaflet calcification is visualized. Systolic excursion of the aortic valve cusps is reduced.mildly. There is aortic annular calcification. There is mild to moderate aortic regurgitation. There is mild aortic stenosis. The mean gradient of the aortic valve is 6 mmHg. Mitral Valve: There is posterior mitral annular calcification. There is mild to moderate mitral regurgitation. The mitral regurgitant jet is posteriorly directed. There is mild to moderate mitral stenosis. The mean gradient across the mitral valve is 4.56 mmHg. Tricuspid Valve: There is mild tricuspid regurgitation. The right ventricular systolic pressure is estimated at 52 mmHg. There is evidence of moderate pulmonary hypertension. Pulmonic Valve: The pulmonic valve structure is not well visualized. Pericardium: There is no pericardial effusion. Aorta: The ascending aorta is not well visualized. There is no dilatation of the aortic arch. There is no dilation of the aortic root. Pulmonary Artery: The main pulmonary artery is not well visualized. Venous: The inferior vena cava appears normal in size. There is a greater than 50% respiratory change in the inferior vena cava dimension. Conclusions Mild concentric left ventricular hypertrophy is observed. Moderate global hypokinesis of the left ventricle is observed. The estimated ejection fraction is 35-40%. Abnormal left ventricular diastolic function is observed. The right ventricular global systolic function is normal. There is calcific aortic valve sclerosis, leaflets show good excursion on short axis view. Mild aortic stenosis, NATAN may be overestimated due to the depressed EF. Mean gradient is 6 mmHg, DI (dimensionless index) is 0.89 There is mild to moderate aortic regurgitation, P 1/2 404, descending aorta not visualized. There is MAC and sclerosis of the mitral leaflets. Mild to moderate mitral regurgitation, posterior jet. There is mild to moderate mitral stenosis, mean gradient 4.6 mmHg. There is mild tricuspid regurgitation. The right ventricular systolic pressure is moderately elevated, estimated at 52 mmHg. Compared with prior echo of 09/21/16, the LVEF is newly depressed, previously AI estimated as moderate, estimated as moderate, MS estimated as moderate, MR estimated as moderate to severe. Previous mean gradient across the mitral valve was 9.6 mmHg. Measurements Name Value Normal Range RVIDd (AP) 2D 1.6 cm (0.9 - 2.6) RVDdMajor (2D) 2.3 cm (2.2 - 4.4) RAd ISD 4CH 3.3 cm (3.4 - 4.9) RA (A4C)W 2.5 cm (2.9 - 4.6) IVSd (2D) 1.3 cm (0.6 - 1) LVPWd (2D) 1.1 cm (0.6 - 1) LVIDd (2D) 4.4 cm (3.6 - 5.4) LVIDs (2D) 3.7 cm - LV FS (2D) 17 % (25 - 45) Aortic Annulus 1.7 cm (1.4 - 2.6) Ao root diameter (2D) 2.7 cm (2.1 - 3.5) Ascending Ao 2.7 cm (2.1 - 3.4) LA dimension (AP) 2D 4 cm (2.3 - 3.8) LAd ISD 4CH 5.2 cm (2.9 - 5.3) LA ISD 4CH W 3.6 cm (2.5 - 4.5) Name Value Normal Range LA ESV SP 4CH (A/L) 60 ml - LA ESV SP 2CH (A/L) 59 ml - LA ESV BP (A/L) 60 ml - LA ESV BP (A/L) index 40.96 ml/m2 - LA ESV SP 4CH (MOD) 54 ml - LA ESV SP 2CH (MOD) 55 ml - Name Value Normal Range MV E-wave Vmax 1.39 m/sec - MV deceleration time 174 msec - MV A-wave Vmax 151 m/sec - MV E:A ratio 0.92 ratio - LV septal e' Vmax 0.04 m/sec - LV lateral e' Vmax 0.03 m/sec - LV E:e' septal ratio 34.75 ratio - LV E:e' lateral ratio 46.3 ratio - Name Value Normal Range AV peak gradient 4 mmHg - AV mean gradient 6 mmHg - LVOT diameter 1.8 cm - LVOT Vmax 1.2 m/sec - AR PHT 404 msec - Name Value Normal Range MV Vmax 1.49 m/sec - MV VTI 40.4 cm - MV peak gradient 8.86 mmHg - MV mean gradient 4.56 mmHg - MV PHT 56.29 msec - MVA (PHT) 3.91 cm2 - MVA (continuity VTI) 1.65 cm2 - Name Value Normal Range TR Vmax 3.5 m/sec - TR peak gradient 49 mmHg - RAP 3 mmHg - RVSP 52 mmHg - IVC diameter 0.73 cm - Name Value Normal Range PV Vmax 0.9 m/sec -
[2017-01-01 18:23] LABS: Hematocrit 27 % (35-47); Hemoglobin 8.5 g/dl (12.0-16.0)
--- NOTE | 2017-01-01 20:14 | HP ---
HISTORY AND PHYSICAL: * ADDENDUM: DATE OF ADMISSION: 12/31/16 Ms. Gutierrez is an 81-year-old female with a history of coronary artery disease and iron deficiency anemia who presented to the hospital on 12/31/16, complaining of chest pain with hemoglobin of 6. Initially, her stool Hemoccult was negative for blood. The patient is being admitted to the ICU. She is going to be transfused packed red blood cells. The patient also has elevated troponin and Cardiology as well as Hematology are going to be consulted. For further details of the patient's presentation and plan, please see history and physical dictated by Noemy Archibald NP, on 12/31/16 with which I agree. [id number]/[facility] #: [id number] MTDD
[2017-01-01] MEDS: Atorvastatin* 40 MG TAB PO SCH (20:21)
--- NOTE | 2017-01-01 20:31 | CONS ---
GASTROENTEROLOGY CONSULT: DATE: 01/01/17 CONSULTING PHYSICIANS: Twin Richard, Grecia Anderson, Tina Pleitez * REASON FOR CONSULTATION: Consideration of GI workup for presentation with hemoglobin 6.0 and MCV 84 in a woman with an acute coronary syndrome and positive troponins with a complex past history. HISTORY: This 81-year-old woman who has severe peripheral vascular disease and coronary disease came in with the onset of chest pain in the middle of the night. Her troponins have shown a mild peak. She has responded to rest, oxygen and transfusion of 2 units with her hemoglobin going up to 10.3 and then settling out most recently 1 hour ago at 9.9. She has had no sign of blood loss while in the hospital here. Her stool was heme negative in the emergency room. Five weeks ago, she had a severe nosebleed (one of many over 20+ yrs) and failing to get control here in the emergency room, was transferred to [facility] where she had cauterization, packing, and insertion of a gel, which may have been first time for that. She was at [facility] for 2 days. She and her do not believe she had any transfusions there. They do not know what her discharge hemoglobin was. It has not been checked since they believe In recent weeks arrangements have been ongoing to get a cardiac catheterization accomplished as an attempt here could not gain free access and another attempt will be started shortly in [place] when she is stable. Around the time of the nosebleed, they believe Plavix was stopped. She has continued on a baby aspirin. She has had a recurring iron deficiency anemia over the last several years. The background is that Dr Garcia had done colonoscopies in 2000, 2005, and October 2010 with diverticulosis seen and a single small tubular adenoma on the right side on the October 2010 study. Through that time, the old database showed she was never anemic and her MCV was always in the 90s. In February 2015, she underwent upper endoscopy to investigate anemia, when she had a hemoglobin of 7.9. The endoscopy was normal. Upper GI series was normal. An attempt to do a capsule endoscopy failed as she could not swallow the pill camera. She has trouble with large pills in general. She had some heme-positive stools in February 2015 and a positive set in April 2015. It is not possible to be sure what the status of her recurring nosebleeds were at that time. She has received 2 units packed cells transfused in April 2015 and 2 units yesterday. PAST MEDICAL HISTORY: 1. Chronic smoking - quitting at the time of bifemoral bypass by Dr Bro, 1996. 2. Carotid endarterectomy - Dr. Walker, 2005. 3. Aortobifemoral, Dr. Bro. 4. Recurring epistaxis - she has had 8 to 10 cauterizations and 2 packings done by an ENT physician in [place], then Dr Velma Montano here in [place],in old database she had cauterization in January 1999 by him. After 2009, she has had several cauterizations by Dr Cornell. During the most recent bleed over New Year's, she says her stools did turn dark. 5. History of right colon polyp - single tubular adenoma, October 2010 - she states her bowel habit tends to be firm now and she is seeing some blood on the tissue from time to time, but not much. 6. Irritable bowel syndrome - she had complaints of constipation and then many outpatient visits with Dr Garcia and then Dr. Crowe at [facility] because of loose stools 3 to 5 years ago. She now says it was all due to an allergy to NUTS. Currently, she is back to a constipated pattern and is using prunes, but does have available MiraLAX. Constipation is clearly the current trend. 7. Status post cholecystectomy. 8. Status post complete hysterectomy, 1983. 9. Incidental appendectomy. 10. Bunion surgery, October 2006, Dr. Bertrand. 11. History of cardiac arrest with potassium 2.2 in 2014. 12. Coronary artery disease - status post cardiac catheterization, 11/26/14, with an open left main irregularities elsewhere and an ejection fraction then of 60%. MEDICATIONS: As an outpatient of GI relevance, aspirin 81 mg, atorvastatin 40, amiodarone 100, magnesium oxide 400, potassium 10 mEq, and Klonopin 1 mg h.s. 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 REVIEW OF SYSTEMS: She eats a general diet avoiding NUTS. She has no trouble swallowing her food. She does not have acid indigestion, heartburn, or vomiting. Her weight has been steady. No history recently of palpitations, dizziness or syncope in the last year. No history of TB, chronic cough, or hemoptysis. She has a nasal septal perforation. EXAM: She is a slender, somewhat frail but alert woman in no distress. History is difficult as she repeats all questions, sometimes a couple of times, repeating that accurately and clearly having heard it, but just choosing always to repeat and then give background, which often involves questions already answered. HEENT exam is unremarkable. Detailed nasal exam not done. Mucous membranes are normal. She has no adenopathy. Her lungs are clear. Heart sounds are normal. Breast and pelvic exams deferred. The abdomen is flat, symmetric, soft and without focal finding. Rectal: Not done. Extremities show no edema. IMPRESSION: This 81-year-old woman who presented with chest pain and an acute coronary syndrome with a rise in troponin, had a new severe anemia at presentation. She has been transfused. Preventing recurrent blood loss anemia obviously is important for complete cardiac care. Most recently, bleeding has been ENT in origin and that problem has actually extended over 20 years. It seems likely that the hemoglobin of 9.5 in the emergency room here on 11/25/16 was followed by a trough or kasey much lower than that all seemingly from the nosebleed. She has not been taking oral iron recently. The question; however, is whether she could have chronic GI bleed simultaneously contributing to the anemia. While that is possible, there is no strong evidence suggesting that is the case in that an EGD a little less than 2 years ago was negative and she has never had any AVM's in the right colon or terminal ileum when studied there [address] Garcia. It certainly would be reasonable to consider a push enteroscopy when her hemoglobin is up a little higher. In the meantime, she can certainly get another iron infusion and some mild to moderate dose oral iron and a few more hemoccults when there is no epistaxis. The heme-negative stool presentation here is a very important piece of data. The positive Hemoccult 2 and 3 years ago are of uncertain significance since they will have to be corroborated with her nosebleed history. [id number]/[facility] #: [id number] [facility]
[2017-01-01] MEDS: clonazePAM TAB(*) 1 MG PO SCH (21:20)
[2017-01-01] MEDS: Gabapentin CAP(*) 300 MG PO SCH (21:21)
[2017-01-02 00:37] LABS: Hematocrit 29 % (35-47); Hemoglobin 9.3 g/dl (12.0-16.0)
[2017-01-02] MEDS: Acetaminophen TAB* 325 MG PO PRN (03:16)
[2017-01-02 05:38] LABS: Hematocrit 28 % (35-47); Hemoglobin 8.9 g/dl (12.0-16.0); Mean Corpuscular HGB Conc 31 g/dl (31-36); Mean Corpuscular Hemoglobin 26 pg (27-31); Mean Corpuscular Volume 82 fL (80-97); Mean Platelet Volume 11 um3 (7.4-10.4); Red Blood Count 3.44 10^6/ul (4.0-5.4); Red Cell Distribution Width 17 % (10.5-15); White Blood Count 11.4 10^3/ul (3.5-10.8)
[2017-01-02 05:41] LABS: Add Diff/Slide Review? Slide Review Added
[2017-01-02 05:48] LABS: BUN/Creatinine Ratio 18.8 (8-20); Calcium 8.2 mg/dL (8.6-10.3); EGFR African American 43.3 (>60); EGFR Non-African American 33.7 (>60)
--- NOTE | 2017-01-02 08:34 | PN ---
Subjective Date of Service: 01/02/17 Interval History: Mrs. Gutierrez reports she "feels really good". No further CP or SOB. Reports he arm weakness/pain has resolved. Feels steady on her feet with ambulation. Objective Active Medications: Acetaminophen (Tylenol Tab*) 650 mg PO Q6H PRN PRN Reason: FEVER/PAIN Last Admin: 01/02/17 03:16 Dose: 650 mg Albuterol (Ventolin 2.5 Mg/3 Ml Neb.Erin*) 2.5 mg INH Q4H PRN PRN Reason: SOB/WHEEZING Amiodarone HCl (Cordarone Tab*) 100 mg PO DAILY [facility] Last Admin: 01/01/17 09:08 Dose: 100 mg Atorvastatin Calcium (Lipitor*) 40 mg PO BEDTIME [facility] Last Admin: 01/01/17 20:21 Dose: 40 mg Citalopram Hydrobromide (Celexa Tab*) 20 mg PO DAILY [facility] Last Admin: 01/01/17 09:07 Dose: 20 mg Clonazepam (Klonopin Tab(*)) 1 mg PO BEDTIME [facility] Last Admin: 01/01/17 21:20 Dose: 1 mg Cyanocobalamin (Vitamin B12 Tab*) 1,000 mcg PO DAILY [facility] Last Admin: 01/01/17 09:07 Dose: 1,000 mcg Gabapentin (Neurontin Cap(*)) 600 mg PO BEDTIME [facility] Last Admin: 01/01/17 21:21 Dose: 600 mg Sodium Chloride (Ns 0.9% 1000 Ml*) 1,000 mls @ 50 mls/hr IV .PER RATE [facility] Magnesium Oxide (Magox 400 Tab*) 400 mg PO DAILY [facility] Last Admin: 01/01/17 09:08 Dose: 400 mg Multi-Ingredient Liniment/Rub (Neymar Lundberg*) 1 applic TOPICAL TID PRN PRN Reason: PAIN - APPLY TO NECK/SHOULDERS Last Admin: 12/31/16 21:10 Dose: 1 applic Mupirocin (Bactroban 2 % Oint*) 1 applic TOPICAL BID [facility] Last Admin: 01/01/17 20:22 Dose: 1 applic Nitroglycerin (Nitroglycerin Tab 0.4 Mg*) 0.4 mg SL Q5M PRN PRN Reason: ANGINA Pantoprazole Sodium (Protonix Iv*) 40 mg IV BID [facility] Last Admin: 01/01/17 20:22 Dose: 40 mg Potassium Chloride (Klor Con Er Tab*) 10 meq PO DAILY [facility] Last Admin: 01/01/17 09:08 Dose: 10 meq Tramadol HCl (Ultram*) 25 mg PO TID PRN PRN Reason: PAIN Last Admin: 01/01/17 21:22 Dose: 25 mg Vital Signs 01/01/17 01/01/17 01/01/17 09:00 10:00 11:00 Temperature Pulse Rate 75 Respiratory 21 17 17 Rate Blood Pressure 93/53 105/68 111/70 (mmHg) O2 Sat by Pulse 99 Oximetry 01/01/17 01/01/17 01/01/17 11:59 12:00 12:01 Temperature 99.0 F Pulse Rate 84 82 Respiratory 21 15 17 Rate Blood Pressure 97/60 (mmHg) O2 Sat by Pulse 95 94 Oximetry 01/01/17 01/01/17 01/01/17 13:00 14:00 14:55 Temperature Pulse Rate 77 80 Respiratory 17 17 17 Rate Blood Pressure (mmHg) O2 Sat by Pulse 98 95 Oximetry 01/01/17 01/01/17 01/01/17 15:00 15:14 15:16 Temperature Pulse Rate 73 74 72 Respiratory 17 20 16 Rate Blood Pressure 77/49 86/48 (mmHg) O2 Sat by Pulse 95 97 97 Oximetry 01/01/17 01/01/17 01/01/17 16:00 17:00 17:02 Temperature 97.6 F Pulse Rate 72 74 73 Respiratory 20 14 16 Rate Blood Pressure 91/48 105/61 (mmHg) O2 Sat by Pulse 100 97 97 Oximetry 01/01/17 01/01/17 01/01/17 17:03 18:00 19:00 Temperature Pulse Rate 74 75 Respiratory 16 21 Rate Blood Pressure 103/63 98/57 (mmHg) O2 Sat by Pulse 97 97 96 Oximetry 01/01/17 01/01/17 01/01/17 19:54 20:00 21:00 Temperature 99.6 F Pulse Rate 72 73 Respiratory 17 16 Rate Blood Pressure 96/61 107/61 (mmHg) O2 Sat by Pulse 98 98 Oximetry 01/01/17 01/01/17 01/01/17 22:00 22:27 23:00 Temperature Pulse Rate 75 75 Respiratory 15 14 Rate Blood Pressure 116/64 111/59 (mmHg) O2 Sat by Pulse 97 96 Oximetry 01/02/17 01/02/17 01/02/17 00:00 00:01 01:00 Temperature 100.2 F Pulse Rate 77 76 76 Respiratory 15 16 15 Rate Blood Pressure 101/64 100/62 (mmHg) O2 Sat by Pulse 95 95 95 Oximetry 01/02/17 01/02/17 01/02/17 02:00 03:00 03:29 Temperature Pulse Rate 78 79 Respiratory 18 16 17 Rate Blood Pressure 100/61 107/60 (mmHg) O2 Sat by Pulse 94 95 Oximetry 01/02/17 01/02/17 01/02/17 03:57 04:00 04:02 Temperature 99.4 F Pulse Rate 81 80 Respiratory 19 19 Rate Blood Pressure 73/36 88/60 (mmHg) O2 Sat by Pulse 95 95 Oximetry 01/02/17 01/02/17 01/02/17 04:30 05:00 05:30 Temperature Pulse Rate 80 76 Respiratory 15 18 Rate Blood Pressure 95/63 106/61 98/61 (mmHg) O2 Sat by Pulse 94 95 Oximetry 01/02/17 01/02/17 01/02/17 06:00 08:00 08:02 Temperature 97.8 F Pulse Rate 73 Respiratory 15 19 Rate Blood Pressure 95/57 (mmHg) O2 Sat by Pulse 96 Oximetry Oxygen Devices in Use Now: None Appearance: elderly female sitting up in a chair in NAD. A+O x3 Eyes: No Scleral Icterus, PERRLA Ears/Nose/Mouth/Throat: NL Teeth, Lips, Gums, Mucous Membranes Moist Neck: NL Appearance and Movements; NL JVP Respiratory: Symmetrical Chest Expansion and Respiratory Effort, Clear to Auscultation Cardiovascular: RRR, No Edema Abdominal: NL Sounds; No Tenderness; No Distention Lymphatic: No Cervical Adenopathy Extremities: No Edema, No Clubbing, Cyanosis Skin: No Rash or Ulcers, No Nodules or Sclerosis Neurological: Alert and Oriented x 3, NL Sensation, NL Gait, NL Muscle Strength and Tone Lines/Tubes/Other Access: Clean, Dry and Intact Peripheral IV Nutrition: Taking PO's Result Diagrams: 01/02/17 05:18 01/02/17 05:18 Additional Lab and Data: Lab Results 12/31/16 Range/Units 07:30 WBC 9.0 (3.5-10.8) 10^3/ul RBC 2.37 L (4.0-5.4) 10^6/ul Hgb Pending Hct 20 L (35-47) % MCV 84 (80-97) fL MCH 25 L (27-31) pg MCHC 30 L (31-36) g/dl RDW 18 H (10.5-15) % Plt Count 185 (150-450) 10^3/ul MPV 11 H (7.4-10.4) um3 Neut % (Auto) 68.8 (38-83) % Lymph % (Auto) 18.4 L (25-47) % [place] % (Auto) 9.4 H (1-9) % Eos % (Auto) 2.3 (0-6) % Baso % (Auto) 1.1 (0-2) % Absolute Neuts (auto) 6.2 (1.5-7.7) 10^3/ul Absolute Lymphs (auto) 1.7 (1.0-4.8) 10^3/ul Absolute Monos (auto) 0.8 (0-0.8) 10^3/ul Absolute Eos (auto) 0.2 (0-0.6) 10^3/ul Absolute Basos (auto) 0.1 (0-0.2) 10^3/ul Absolute Nucleated RBC 0.01 10^3/ul Nucleated RBC % 0.1 Microbiology and Other Data: Microbiology 01/01/17 00:00 Aerobic Blood Culture - Preliminary Blood Venous No Growth Day 1 Anaerobic Blood Culture - Preliminary No Growth Day 1 Assess/Plan/Problems-Billing Assessment: 81 yo female with extensive coronary and peripheral vascular disease as well as aortic and mitral valvular heart disease admitted with substernal chest pain found to have elevated troponins and acute on chronic anemia. - Patient Problems (1) Elevated troponin Comment: - peaked at 0.81. No further CP since prior to coming to Hospital. Demand ischemia from anemia? - LBBB, no EKG changes noted - Appreciate cardiology consult. Plan to medically managed elevated trops. Pt was unable to be cathed Oct 2016, Dr. Isaacs spoke to Dr. Sherie Giles who has been following the patient as an outpt. CTA with runoff to evaluate arterial vasculature and candidacy for cath in addition to diagnostic benefit wrt subclavian stenosis - second portion of test today CHF resolved after diuresing, PRBCs admin. continue to monitor closely. Daily weights. TTE 01/01 showing EF 35-40%, right ventricular global systolic function is normal , mild with mild-mod aortic regurg, mild -mod MS, mild TR, compared to prior echo 09/21 LVEF is newly depressed. - spoke to Dr. Valle who recommended no medication changes at this time. (2) Anemia Comment: - sarah of iron def anemia secondary to possible occult GI bleed vs severe nose bleed? - HH 6 on admission. Transfused 2 units PRBCs now 8.9. Heme-negative stool. Serial stool for occult blood. Continue trending HH. - Appreciate Dr. Montes consult; recurrent iron def anemia, iron transfusion 01/01. Will follow closely as outpt. - GI consult thinks most likely from nose bleed in beginning of Nov, low suspicion for GI bleed - please se report. Recommended possible push enteroscopy when her HH is more stable. - Continue PPI (3) Hx of coronary artery disease Comment: - hx of non-stemi in 2013. cardiac cath 2013 showed luminal irregularities of the LAD, 50% occlusion of left circ, RCA 30% proximal followed by 40% more distal occlusions. - Hold ASA at this time with acute anemia. - Discussed with Dr. Valle anemia - he recommends to hold off on more blood for now unless she becomes more anemic due to low EF (4) Left bundle branch block Comment: - known LBBB (5) PVD (peripheral vascular disease) Comment: s/p bilateral fem-pop PVD s/p left-sided carotid endarterectomy (6) Valvular disease Comment: aortic valve stenosis with mod aortic insufficiency, moderate mitral stenosis with mod-severe mitral insufficiency - pt has been following with Dr. Rehman at [facility] for possible mitral valve surgery(unlikely per Dr. Isaacs in her conversation with Dr. Rehman) (7) CKD (chronic kidney disease) Comment: appears to be at baseline. continue to monitor closely (8) DVT prophylaxis Comment: SCDS only (9) DNR (do not resuscitate) Comment: MOLST on chart Status and Disposition: inpatient with acute anemia and elevated troponins. Plan for 2nd portion of CTA tomorrow.
[2017-01-02 09:04] LABS: Magnesium 1.7 mg/dL (1.9-2.7)
[2017-01-02] MEDS: Citalopram TAB* 20 MG PO SCH (09:26)
[2017-01-02] MEDS: Cyanocobalamin TAB* 500 MCG PO SCH (09:26)
[2017-01-02] MEDS: Potassium Chlor TAB* 10 MEQ TAB.ER PO SCH (09:27)
[2017-01-02] MEDS: Pantoprazole IV* 40 MG IV SCH ×2 (09:27→20:42)
[2017-01-02] MEDS: Amiodarone TAB* 200 MG PO SCH (09:27)
[2017-01-02] MEDS: Magnesium Oxide TAB* 400 MG PO SCH (09:27)
[2017-01-02] MEDS ORDERED: Magnesium Sulfate 2 GM IV* 2 GM/50 ML BAG IVPB ONE (11:30)
--- NOTE | 2017-01-02 11:41 | PN ---
Progress Note - Progress Note SOAP: Subjective: []Better and no more chest pain. No additional bleeding. CONSULT GI: Pointed out that nose bleed on 11/25 may have precipitated this event. She reports nose bleeds at times, this event was sever. Acetaminophen (Tylenol Tab*) 650 mg PO Q6H PRN PRN Reason: FEVER/PAIN Last Admin: 01/02/17 03:16 Dose: 650 mg Albuterol (Ventolin 2.5 Mg/3 Ml Neb.Erin*) 2.5 mg INH Q4H PRN PRN Reason: SOB/WHEEZING Amiodarone HCl (Cordarone Tab*) 100 mg PO DAILY [facility] Last Admin: 01/02/17 09:27 Dose: 100 mg Atorvastatin Calcium (Lipitor*) 40 mg PO BEDTIME [facility] Last Admin: 01/01/17 20:21 Dose: 40 mg Citalopram Hydrobromide (Celexa Tab*) 20 mg PO DAILY [facility] Last Admin: 01/02/17 09:26 Dose: 20 mg Clonazepam (Klonopin Tab(*)) 1 mg PO BEDTIME [facility] Last Admin: 01/01/17 21:20 Dose: 1 mg Cyanocobalamin (Vitamin B12 Tab*) 1,000 mcg PO DAILY [facility] Last Admin: 01/02/17 09:26 Dose: 1,000 mcg Gabapentin (Neurontin Cap(*)) 600 mg PO BEDTIME [facility] Last Admin: 01/01/17 21:21 Dose: 600 mg Magnesium Sulfate (Magnesium Sulfate 2 Gm Iv*) 2 gm in 50 mls @ 50 mls/hr IVPB ONCE ONE Stop: 01/02/17 12:29 Magnesium Oxide (Magox 400 Tab*) 400 mg PO DAILY [facility] Last Admin: 01/02/17 09:27 Dose: 400 mg Multi-Ingredient Liniment/Rub (Neymar Lundberg*) 1 applic TOPICAL TID PRN PRN Reason: PAIN - APPLY TO NECK/SHOULDERS Last Admin: 12/31/16 21:10 Dose: 1 applic Mupirocin (Bactroban 2 % Oint*) 1 applic TOPICAL BID [facility] Last Admin: 01/01/17 20:22 Dose: 1 applic Nitroglycerin (Nitroglycerin Tab 0.4 Mg*) 0.4 mg SL Q5M PRN PRN Reason: ANGINA Pantoprazole Sodium (Protonix Iv*) 40 mg IV BID [facility] Last Admin: 01/02/17 09:27 Dose: 40 mg Potassium Chloride (Klor Con Er Tab*) 10 meq PO DAILY [facility] Last Admin: 01/02/17 09:27 Dose: 10 meq Tramadol HCl (Ultram*) 25 mg PO TID PRN PRN Reason: PAIN Last Admin: 01/01/17 21:22 Dose: 25 mg Objective: [] Vital Signs Temp Pulse Resp BP Pulse Ox 97.8 F 73 19 95/57 96 01/02/17 08:00 01/02/17 06:00 01/02/17 08:02 01/02/17 06:00 01/02/17 06:00 HEENT - Pale but better then described, just finished second U PRBC. CTA Distant S1S2, regular. 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 Neuro alert and oriented but otherwise differed. Assessment: []81 year old with intermittent iron deficiency anemia thought second to occult GI bleeding. Has been quite anemic in past, Hgb to 7.2 in 02/2015. Has had negative GI work up in past and is followed by Dr. Costa. Dr. Agudelo pointed out that nose bleeds may be contributing. Seems plausible in this event, the 2014 episode did not have associated epistaxis. Plan: []1. S/P transfusion of PRBC and increased Hgb 2. IV, Ferrlecit 125 mg daily until discharge 3. Has been on oral iron, Poly-Iron 150 mg daily at home, continue. 4. Agree with evaluation small bowl as outpatient. Can consider ENT evaluation as well. 5. Will need closer follow up CBC after discharge, monthly blood count.
[2017-01-02] MEDS: Mupirocin 2% OINT* TUBE TOPICAL SCH ×2 (13:09→20:46)
[2017-01-02] MEDS ORDERED: Iodixanol* (CONTRAST) 320 MG/ML 100 ML SDV IV ONE (15:26)
--- NOTE | 2017-01-02 15:59 | RAD ---
HISTORY: PVD, coronary disease, subclavian stenosis COMPARISONS: Carotid ultrasound dated June 01, 2016, CTA dated November 22, 2014 TECHNIQUE: Multiple contiguous axial CT scans were obtained of the head and neck After the administration of nonionic intravenous contrast timed to the systemic arterial phase of contrast enhancement. Coronal and sagittal multiplanar reformations are submitted for review. Multiple 3-D maximum intensity projection reconstructions are also submitted for review. FINDINGS: CTA NECK: AORTIC ARCH: There is extensive atherosclerosis of the aortic arch and the proximal cephalic great vessels. There is extensive calcified proximal left renal artery, with moderate to severe stenosis of the left subclavian artery proximal to the origin of the left vertebral artery. RIGHT VERTEBRAL ARTERY: The right vertebral artery is patent along its course, without stenosis. LEFT VERTEBRAL ARTERY: The left vertebral artery is patent along its course, without stenosis. DOMINANCE: The vertebral arteries are codominant. RIGHT COMMON CAROTID ARTERY: The right common carotid artery is patent. The right carotid bifurcation occurs at C4-C5 RIGHT INTERNAL CAROTID ARTERY: There is atheromatous disease of the right carotid bifurcation, without right internal carotid artery stenosis by NASCET criteria. RIGHT EXTERNAL CAROTID ARTERY: The right external carotid artery is unremarkable. LEFT COMMON CAROTID ARTERY: The left common carotid artery is patent. The left carotid bifurcation occurs at C4-C5 LEFT INTERNAL CAROTID ARTERY: There is atheromatous disease of the left carotid bifurcation, without left internal carotid artery stenosis by NASCET criteria. LEFT EXTERNAL CAROTID ARTERY: The left external carotid artery is unremarkable. VENOUS CIRCULATION: The venous system is unremarkable. SALIVARY GLANDS: The parotid glands, submandibular glands, sublingual glands are normal. NASAL CAVITY/NASOPHARYNX: The nasal cavity and nasopharynx are normal. ORAL CAVITY/OROPHARYNX: The oral cavity is obscured by streak artifact from dental amalgam. The visualized oral cavity and oropharynx are unremarkable. LARYNGEAL APPARATUS/HYPOPHARYNX: The laryngeal apparatus and hypopharynx are normal. UPPER AIRWAY/UPPER ESOPHAGUS: The visualized upper airway and esophagus are normal. LUNG APICES: There is diffuse centrilobular edematous change. There are moderate to large bilateral pleural effusions. THYROID GLAND: The thyroid is heterogeneous with multiple small nodules. LYMPH NODES: There is no lymphadenopathy by size criteria. BONES AND SOFT TISSUES: No bone or soft tissue abnormalities are noted. CTA HEAD: INTRACRANIAL CIRCULATION: There is no aneurysm, vascular malformation, occlusion, or stenosis of the visualized intracranial circulation. The anterior communicating artery complex is clear. Bilateral posterior communicating arteries are identified. VENOUS CIRCULATION: The venous system is unremarkable. PERFUSION: There is no obvious parenchymal perfusion deficit. HEMORRHAGE/INFARCT: There is no hemorrhage or acute infarct. MASSES/SHIFT: There is no mass or shift. EXTRA-AXIAL SPACES: There are no extra-axial fluid collections. SULCI AND VENTRICLES: The sulci and ventricles are normal in size and position for the patient's stated age. CEREBRUM: There is hypoattenuation of the periventricular and subcortical white matter. BRAINSTEM: There are no focal parenchymal abnormalities. CEREBELLUM: There are no focal parenchymal abnormalities. PARANASAL SINUSES: There is postsurgical change to the sinuses. ORBITS: The orbits are unremarkable. BONES AND SOFT TISSUE: No bone or soft tissue abnormalities are noted. OTHER: There is no abnormal enhancement. IMPRESSION: 1. ATHEROSCLEROSIS. THIS INCLUDES A HIGH-GRADE STENOSIS OF THE PROXIMAL LEFT SUBCLAVIAN ARTERY CONSISTENT WITH THE GIVEN HISTORY OF SUBCLAVIAN STEAL PHYSIOLOGY. 2. THERE IS NO INTERNAL CAROTID ARTERY STENOSIS BY NASCET CRITERIA. 3. NO ANEURYSM, VASCULAR MALFORMATION, OCCLUSION, OR STENOSIS OF THE VISUALIZED INTRACRANIAL CIRCULATION. 4. PROXIMAL IS ISCHEMIC CHANGES. 5. EMPHYSEMA. 6. MODERATE TO LARGE BILATERAL PLEURAL EFFUSIONS CPT II Codes: 3100F
[2017-01-02 17:17] LABS: Kappa Free Light Chain 3.15 mg/dL; Kappa/Lambda Free Light Chain 0.9722
[2017-01-02] MEDS: Atorvastatin* 40 MG TAB PO SCH (20:41)
[2017-01-02] MEDS: Gabapentin CAP(*) 300 MG PO SCH (20:42)
[2017-01-02] MEDS: clonazePAM TAB(*) 1 MG PO SCH (20:42)
[2017-01-03] MEDS: traMADol TAB* 50 MG PO PRN ×2 (00:47→15:15)
[2017-01-03 05:03] LABS: Hematocrit 28 % (35-47); Mean Corpuscular HGB Conc 32 g/dl (31-36); Mean Corpuscular Hemoglobin 26 pg (27-31); Mean Corpuscular Volume 83 fL (80-97); Mean Platelet Volume 10 um3 (7.4-10.4); Red Cell Distribution Width 17 % (10.5-15); White Blood Count 10.3 10^3/ul (3.5-10.8)
[2017-01-03 05:17] LABS: BUN/Creatinine Ratio 15.8 (8-20); Calcium 8.3 mg/dL (8.6-10.3); EGFR African American 42.3 (>60); EGFR Non-African American 32.9 (>60); Magnesium 1.8 mg/dL (1.9-2.7); Potassium 3.9 mmol/L (3.5-5.0)
[2017-01-03] MEDS ORDERED: NS 0.9% 100 ML* 100 ML ONE (07:47)
[2017-01-03] MEDS: Cyanocobalamin TAB* 500 MCG PO SCH (07:54)
[2017-01-03] MEDS: Citalopram TAB* 20 MG PO SCH (07:54)
[2017-01-03] MEDS: Amiodarone TAB* 200 MG PO SCH (07:55)
[2017-01-03] MEDS: Magnesium Oxide TAB* 400 MG PO SCH (07:55)
[2017-01-03] MEDS: Potassium Chlor TAB* 10 MEQ TAB.ER PO SCH (07:55)
[2017-01-03] MEDS: Pantoprazole IV* 40 MG IV SCH ×2 (07:59→21:27)
[2017-01-03] MEDS: Ferric Gluconate IV* 125 MG in NS 0.9% 100 ML* 100 ML IVPB SCH (09:03)
[2017-01-03] MEDS: Mupirocin 2% OINT* TUBE TOPICAL SCH ×2 (09:03→21:44)
--- NOTE | 2017-01-03 16:51 | PN ---
Subjective Date of Service: 01/03/17 Interval History: Patient reports she continues to feel good. she feels much better after the blood transfusion. no further CP. mild dyspnea with exertion. Her arm numbness and pain is still resolved. Good appetite. No N/V/D. Pt does state she would want a cardiac cath if offered to her. at bedside. Objective Active Medications: Acetaminophen (Tylenol Tab*) 650 mg PO Q6H PRN PRN Reason: FEVER/PAIN Last Admin: 01/02/17 03:16 Dose: 650 mg Albuterol (Ventolin 2.5 Mg/3 Ml Neb.Erin*) 2.5 mg INH Q4H PRN PRN Reason: SOB/WHEEZING Amiodarone HCl (Cordarone Tab*) 100 mg PO DAILY [facility] Last Admin: 01/03/17 07:55 Dose: 100 mg Atorvastatin Calcium (Lipitor*) 40 mg PO BEDTIME [facility] Last Admin: 01/02/17 20:41 Dose: 40 mg Citalopram Hydrobromide (Celexa Tab*) 20 mg PO DAILY [facility] Last Admin: 01/03/17 07:54 Dose: 20 mg Clonazepam (Klonopin Tab(*)) 1 mg PO BEDTIME [facility] Last Admin: 01/02/17 20:42 Dose: 1 mg Cyanocobalamin (Vitamin B12 Tab*) 1,000 mcg PO DAILY [facility] Last Admin: 01/03/17 07:54 Dose: 1,000 mcg Gabapentin (Neurontin Cap(*)) 600 mg PO BEDTIME [facility] Last Admin: 01/02/17 20:42 Dose: 600 mg Ferric Sodium Gluconate Complex 125 mg/ Sodium Chloride 110 mls @ 110 mls/hr IVPB DAILY [facility] Last Admin: 01/03/17 09:03 Dose: 110 mls/hr Magnesium Oxide (Magox 400 Tab*) 400 mg PO DAILY [facility] Last Admin: 01/03/17 07:55 Dose: 400 mg Multi-Ingredient Liniment/Rub (Neymar Lundberg*) 1 applic TOPICAL TID PRN PRN Reason: PAIN - APPLY TO NECK/SHOULDERS Last Admin: 12/31/16 21:10 Dose: 1 applic Mupirocin (Bactroban 2 % Oint*) 1 applic TOPICAL BID [facility] Last Admin: 01/03/17 09:03 Dose: 1 applic Nitroglycerin (Nitroglycerin Tab 0.4 Mg*) 0.4 mg SL Q5M PRN PRN Reason: ANGINA Pantoprazole Sodium (Protonix Iv*) 40 mg IV BID [facility] Last Admin: 01/03/17 07:59 Dose: 40 mg Potassium Chloride (Klor Con Er Tab*) 10 meq PO DAILY [facility] Last Admin: 01/03/17 07:55 Dose: 10 meq Tramadol HCl (Ultram*) 25 mg PO TID PRN PRN Reason: PAIN Last Admin: 01/03/17 15:15 Dose: 25 mg Vital Signs 01/02/17 01/02/17 01/02/17 19:52 20:00 20:42 Temperature 98.4 F Pulse Rate 74 Respiratory 16 18 18 Rate Blood Pressure 85/49 (mmHg) O2 Sat by Pulse 94 94 Oximetry 01/02/17 01/03/17 01/03/17 22:40 00:11 00:47 Temperature 99.5 F Pulse Rate 80 Respiratory 16 20 18 Rate Blood Pressure 89/49 (mmHg) O2 Sat by Pulse 95 Oximetry 01/03/17 01/03/17 01/03/17 02:25 02:47 03:46 Temperature 98.3 F Pulse Rate 80 76 Respiratory 20 14 20 Rate Blood Pressure 103/53 (mmHg) O2 Sat by Pulse 95 97 Oximetry 01/03/17 01/03/17 01/03/17 07:28 08:00 10:27 Temperature 99.1 F Pulse Rate 70 69 Respiratory 16 18 18 Rate Blood Pressure 101/53 (mmHg) O2 Sat by Pulse 97 97 88 Oximetry 01/03/17 01/03/17 01/03/17 10:29 11:21 15:15 Temperature 99.2 F Pulse Rate 77 Respiratory 16 12 Rate Blood Pressure 99/51 (mmHg) O2 Sat by Pulse 88 86 Oximetry Oxygen Devices in Use Now: None Appearance: eldelry female sitting up in bed in NAD. A+O x3 Eyes: No Scleral Icterus, PERRLA Ears/Nose/Mouth/Throat: NL Teeth, Lips, Gums, Mucous Membranes Moist Neck: NL Appearance and Movements; NL JVP Respiratory: Symmetrical Chest Expansion and Respiratory Effort, Clear to Auscultation Cardiovascular: RRR, No Edema Abdominal: NL Sounds; No Tenderness; No Distention Lymphatic: No Cervical Adenopathy Extremities: No Edema, No Clubbing, Cyanosis Skin: No Rash or Ulcers, No Nodules or Sclerosis Neurological: Alert and Oriented x 3, NL Sensation, NL Gait, NL Muscle Strength and Tone Lines/Tubes/Other Access: Clean, Dry and Intact Peripheral IV Nutrition: Taking PO's Result Diagrams: 01/03/17 04:45 01/03/17 04:45 Additional Lab and Data: Lab Results 12/31/16 Range/Units 07:30 WBC 9.0 (3.5-10.8) 10^3/ul RBC 2.37 L (4.0-5.4) 10^6/ul Hgb Pending Hct 20 L (35-47) % MCV 84 (80-97) fL MCH 25 L (27-31) pg MCHC 30 L (31-36) g/dl RDW 18 H (10.5-15) % Plt Count 185 (150-450) 10^3/ul MPV 11 H (7.4-10.4) um3 Neut % (Auto) 68.8 (38-83) % Lymph % (Auto) 18.4 L (25-47) % [place] % (Auto) 9.4 H (1-9) % Eos % (Auto) 2.3 (0-6) % Baso % (Auto) 1.1 (0-2) % Absolute Neuts (auto) 6.2 (1.5-7.7) 10^3/ul Absolute Lymphs (auto) 1.7 (1.0-4.8) 10^3/ul Absolute Monos (auto) 0.8 (0-0.8) 10^3/ul Absolute Eos (auto) 0.2 (0-0.6) 10^3/ul Absolute Basos (auto) 0.1 (0-0.2) 10^3/ul Absolute Nucleated RBC 0.01 10^3/ul Nucleated RBC % 0.1 Microbiology and Other Data: Microbiology 01/01/17 00:00 Aerobic Blood Culture - Preliminary Blood Venous No Growth Day 1 Anaerobic Blood Culture - Preliminary No Growth Day 1 Assess/Plan/Problems-Billing Assessment: 81 yo female with extensive coronary and peripheral vascular disease as well as aortic and mitral valvular heart disease admitted with substernal chest pain found to have elevated troponins and acute on chronic anemia. - Patient Problems (1) Elevated troponin Comment: - peaked at 0.81. No further CP since prior to coming to Hospital. Demand ischemia from anemia? - LBBB, no EKG changes noted - Appreciate cardiology consult. Plan to medically managed elevated trops. Pt was unable to be cathed Oct 2016, Dr. Isaacs spoke to Dr. Sherie Giles who has been following the patient as an outpt. CTA with runoff to evaluate arterial vasculature and candidacy for cath in addition to diagnostic benefit wrt subclavian stenosis. CHF resolved after diuresing, PRBCs admin. continue to monitor closely. Daily weights. TTE 01/01 showing EF 35-40%, right ventricular global systolic function is normal , mild with mild-mod aortic regurg, mild -mod MS, mild TR, compared to prior echo 09/21 LVEF is newly depressed. - spoke to Dr. Valle who recommended no medication changes at this time. - Reviewed CTA imaging with Dr. Stroud - he will officially consult. The pt does have subclavian stenosis but unsure if it is significant as her symptoms resolved with fixing her anemia. Pt may need a diagnostic cath (2) Anemia Comment: - sarah of iron def anemia secondary to possible occult GI bleed vs severe nose bleed? - HH 6 on admission. Transfused 2 units PRBCs now 8.9. Heme-negative stool. Serial stool for occult blood. Continue trending HH. - Appreciate Dr. Montes consult; recurrent iron def anemia, iron transfusion 01/01. Will follow closely as outpt. - GI consult thinks most likely from nose bleed in beginning of Nov, low suspicion for GI bleed - please se report. Recommended possible push enteroscopy when her HH is more stable. - Continue PPI (3) Cardiomyopathy Comment: - new noted cardiomyopathy EF 35-40%, 1 year ago was 50-55% - unclear etiology. - Reviewed with Dr. Stroud, she may need a diagnostic cath. (4) Hx of coronary artery disease Comment: - hx of non-stemi in 2013. cardiac cath 2013 showed luminal irregularities of the LAD, 50% occlusion of left circ, RCA 30% proximal followed by 40% more distal occlusions. - Hold ASA at this time with acute anemia. - Discussed with Dr. Valle anemia - he recommends to hold off on more blood for now unless she becomes more anemic due to low EF (5) Left bundle branch block Comment: - known LBBB (6) PVD (peripheral vascular disease) Comment: s/p bilateral fem-pop PVD s/p left-sided carotid endarterectomy - on ASA only as outpt, hold for now due to acute anemia with possible GI bleed. (7) Valvular disease Comment: aortic valve stenosis with mod aortic insufficiency, moderate mitral stenosis with mod-severe mitral insufficiency - pt has been following with Dr. Rehman at [facility] for possible mitral valve surgery(unlikely per Dr. Isaacs in her conversation with Dr. Rehman) (8) CKD (chronic kidney disease) Comment: appears to be at baseline. continue to monitor closely (9) DVT prophylaxis Comment: SCDS only (10) DNR (do not resuscitate) Comment: MOLST on chart Status and Disposition: inpatient with acute anemia and elevated troponins found to have a new cardiomyopathy. awaiting Dr. Stroud consult this evening to determine plan moving forward
[2017-01-03] MEDS ORDERED: Magnesium Sulfate 2 GM IV* 2 GM/50 ML BAG IVPB ONE (17:30)
--- NOTE | 2017-01-03 20:34 | CONS ---
INTERVENTIONAL CARDIOLOGY CONSULT REPORT: DATE OF CONSULT: 01/03/17 PRIMARY CARE PHYSICIAN: Dr. Anderson. REGIONAL SALES CONSULTANT: Dr. Pleitez. HISTORY: An 81-year-old woman with numerous medical problems, Interventional Cardiology was consulted regarding further evaluation of her peripheral vascular and valvular heart disease. I have reviewed her extensive records. She had a catheterization here in October 2014 via the femoral approach without access problems. Indication for cath was possible chest pain with new left bundle branch block and slightly elevated troponins. I have reviewed the films, she had at most 50% circumflex stenosis, 30% to 40% RCA stenosis, no significant LAD stenosis, EF of 60%. She was hypertensive. She was thought to have very mild anteroapical hypokinesis on echo, with an EF of 45% to 50%. Subsequent EKG in November 2014 revealed symmetrical precordial T-wave inversion suggestive of Takotsubo's. Subsequent LV function apparently normalized. She has been followed for valvular heart disease with moderate aortic stenosis and mukxngmm-as-egrgtz valve disease with MR and MS. Her LVEF most recently has decreased to 35% to 40% with moderate global hypokinesis on 01/01/17. Mean aortic valve gradient was 6, mean mitral gradient was 4.56. She was thought to have some [id number]-aczxlwdj MR. RV systolic pressure was estimated at 52% with moderate pulmonary hypertension. She saw Dr. Moody almost a year ago for evaluation regarding possible double valve replacement. She had an attempted cardiac cath here in October [address] Pleitez, unsuccessful because of difficulty with access, presumably due to access within the [place] common femoral without ability to advance retrograde through the aortofemoral graft. The cath in 2013 mentions no technical difficulty with access. More recently, she saw Dr. Rehman at [facility]. He apparently felt she had bilateral subclavian stenosis, echo there reportedly showed moderate valve disease with moderate aortic stenosis, moderate aortic insufficiency, and moderate mitral insufficiency. There is no mention of mitral stenosis. He requested a CT to evaluate her subclavian as well as her aortoiliofemoral circulation. She was admitted here with low substernal chest discomfort with nausea, she had a small troponin rise. She also has an elevated BNP, a chest x-ray that is suggestive of some degree of congestion. Symptomatically, she complains of having very poor energy, she has had recent headaches. She also complains of several months of bilateral shoulder pain, typically not present in the morning but developing during the day, and is worsened by movement. She also complains of neck pain. She complains of weakness with some difficulty getting out of deep chairs. She wears oxygen at night, and has profound dyspnea on exertion walking just from her bed to the toilet. She does not wear oxygen during the day time. She has not had any acute visual changes. Sed rate and CRP this admission are not markedly elevated. She believes her weight has been stable. PAST MEDICAL HISTORY: PAD, with previous left carotid endarterectomy and previous bilateral aortobifemoral bypass in 1996, patent on current CTA. Previous presentation with VT in the setting of hypokalemia, progressive LV systolic dysfunction on echo with moderate pulmonary hypertension. CURRENT MEDICATIONS: 1. Bronchodilators. 2. Amiodarone 100 mg daily. 3. Lipitor 40 daily. 4. Celexa. 5. Klonopin. 6. B12. 7. Iron. 8. Neurontin. 9. Mag-Ox. 10. Protonix. 11. Potassium. ALLERGIES: Numerous including METALS; aspirin, which is actually not an allergy but recurring at times severe nose bleeds, probably in the setting of dual- antiplatelet therapy with Plavix and aspirin. Per GI consult, there is no documented GI bleeding source. REVIEW OF SYSTEMS: Negative except as in HPI. PHYSICAL EXAM: She is a thin woman, she is not tachypneic or dyspneic, but she is very weak. She had to pull on the hand rail of the bed just to turn in bed. Her recorded BP 99/51, heart rate is 60 to 70. Lungs: She has no audible rales or wheezes, no dullness to percussion. JVP is not elevated at less than 10. She does not have C-V waves. Carotids are palpable bilaterally with perhaps some delay with loud transmitted murmur or bruit bilaterally. She has a basilar murmur which peaks in the latter half of systole. I am not able to hear aortic insufficiency. I cannot feel the apical impulse or RV. She has a left subclavian bruit, none on the right. Her S1 is relatively loud. She has a very soft, diastolic rumble, half way through diastole, heard best in the left lateral decubitus position. She has a very soft systolic murmur at the apex. The abdominal aorta is not palpable or tender. She has no abdominal bruit. She has palpable femoral pulses bilaterally without bruits. Pedals are palpable. Radials are palpable. She has no cyanosis, clubbing, or edema. DIAGNOSTIC STUDIES/LAB DATA: Her troponins here show a very slight elevation from 0.13 to 0.46 to 0.81 to 0.6. Chest x-ray as above. Her admission creatinine 1.58, GFR of 31.5. CRP is 4.2. BNP high at 706. Sed rate 27 on the 4th. EKG shows left bundle branch block which has intermittently been present in the past. IMPRESSION AND PLAN: 1. Congestive heart failure. She has decreased left ventricular systolic function with global hypokinesis, no significant coronary disease, had a cath in 2013 when she had a small troponin rise and a month later EKG changes suggestive of possible Takotsubo's. She has atypical chest discomfort. She certainly may have developed progression of coronary disease. In order to sort out the relative contribution of progression of coronary disease versus her aortic versus mitral valve disease contributing to her limiting exertional dyspnea, a cardiac cath would be beneficial. My concern, however, is her debility. She can barely ambulate. She becomes profoundly short of breath. I think it would be appropriate to do an exercise ambulation oximetry study and ensure that she is adequately oxygenated at all times, not just at night. In her current physical state, I doubt that she would have an easy recovery after valve surgery. I doubt that her subclavian left- sided stenosis is contributing to her symptoms, that is certainly not causing her shoulder pain or her headaches. She does not have symptoms of subclavian steal. Access for cardiac cath may require ultrasound guidance to identify the distal end of the graft but was accomplished in 2014 apparently without any difficulty. 2. Debility. See above. I am also concerned about possible polymyalgia given her headaches, her shoulder pain, even though her CRP and sed rate are not high. Perhaps conversation with Dr. Adnerson might be helpful in this regard as she knows her better. 3. Peripheral arterial disease. She has had a left carotid endarterectomy which has no stenosis on current CTA. She presents very complex constellation of abnormalities. I emphasized to her and her family that surgical or transcutaneous correction of her valve disease may be appropriate, does need a cardiac cath for definitive diagnosis, the cath can be done via the femoral approach, but at the same time, I am very concerned about her debility and her possible ambulatory hypoxemia. To that end, I have ordered ambulatory oximetry. I note, she is also not on an HU inhibitor, she has renal artery stenosis by CTA. Perhaps, Dr. Pleitez can address whether she has had issues with afterload reduction in the past which in concept would be appropriate for her left ventricular systolic dysfunction. Thanks for the consultation. CC: Dr. Anderson; Dr. Pleitez * [id number]/CPS #: [id number] MTDD
[2017-01-03] MEDS: clonazePAM TAB(*) 1 MG PO SCH (21:26)
[2017-01-03] MEDS: Atorvastatin* 40 MG TAB PO SCH (21:26)
[2017-01-03] MEDS: Gabapentin CAP(*) 300 MG PO SCH (21:27)
[2017-01-03] MEDS: Acetaminophen TAB* 325 MG PO PRN (21:45)
[2017-01-04 05:24] LABS: Hematocrit 29 % (35-47); Hemoglobin 9.1 g/dl (12.0-16.0); Mean Corpuscular HGB Conc 31 g/dl (31-36); Mean Corpuscular Hemoglobin 26 pg (27-31); Mean Corpuscular Volume 84 fL (80-97); Mean Platelet Volume 11 um3 (7.4-10.4); Red Blood Count 3.45 10^6/ul (4.0-5.4); Red Cell Distribution Width 18 % (10.5-15); White Blood Count 9.2 10^3/ul (3.5-10.8)
[2017-01-04 05:40] LABS: BUN/Creatinine Ratio 15.7 (8-20); EGFR Non-African American 28.5 (>60); Potassium 3.9 mmol/L (3.5-5.0)
[2017-01-04 05:41] LABS: Calcium 8.4 mg/dL (8.6-10.3); EGFR African American 36.7 (>60); Magnesium 2.1 mg/dL (1.9-2.7)
[2017-01-04] MEDS ORDERED: NS 0.9% 100 ML* 100 ML ONE (09:10)
[2017-01-04] MEDS: Citalopram TAB* 20 MG PO SCH (09:37)
[2017-01-04] MEDS: Cyanocobalamin TAB* 500 MCG PO SCH (09:38)
[2017-01-04] MEDS: Amiodarone TAB* 200 MG PO SCH (09:41)
[2017-01-04] MEDS: Magnesium Oxide TAB* 400 MG PO SCH (09:41)
[2017-01-04] MEDS: Mupirocin 2% OINT* TUBE TOPICAL SCH (09:43)
[2017-01-04] MEDS: Pantoprazole IV* 40 MG IV SCH (09:43)
[2017-01-04] MEDS: Potassium Chlor TAB* 10 MEQ TAB.ER PO SCH (09:43)
[2017-01-04] MEDS: traMADol TAB* 50 MG PO PRN (09:45)
[2017-01-04] MEDS: Acetaminophen TAB* 325 MG PO PRN (09:45)
[2017-01-04] MEDS: Ferric Gluconate IV* 125 MG in NS 0.9% 100 ML* 100 ML IVPB SCH (11:26)
--- NOTE | 2017-01-04 12:34 | PN ---
Subjective Date of Service: 01/04/17 - CC: CP and SOB Interval History: Feels much better. No recurrence of chest pain. No dyspnea. Medications Active Medications: Acetaminophen (Tylenol Tab*) 650 mg PO Q6H PRN PRN Reason: FEVER/PAIN Last Admin: 01/04/17 09:45 Dose: 650 mg Albuterol (Ventolin 2.5 Mg/3 Ml Neb.Erin*) 2.5 mg INH Q4H PRN PRN Reason: SOB/WHEEZING Amiodarone HCl (Cordarone Tab*) 100 mg PO DAILY [facility] Last Admin: 01/04/17 09:41 Dose: 100 mg Atorvastatin Calcium (Lipitor*) 40 mg PO BEDTIME [facility] Last Admin: 01/03/17 21:26 Dose: 40 mg Citalopram Hydrobromide (Celexa Tab*) 20 mg PO DAILY [facility] Last Admin: 01/04/17 09:37 Dose: 20 mg Clonazepam (Klonopin Tab(*)) 1 mg PO BEDTIME [facility] Last Admin: 01/03/17 21:26 Dose: 1 mg Cyanocobalamin (Vitamin B12 Tab*) 1,000 mcg PO DAILY [facility] Last Admin: 01/04/17 09:38 Dose: 1,000 mcg Gabapentin (Neurontin Cap(*)) 600 mg PO BEDTIME [facility] Last Admin: 01/03/17 21:27 Dose: 600 mg Ferric Sodium Gluconate Complex 125 mg/ Sodium Chloride 110 mls @ 110 mls/hr IVPB DAILY [facility] Last Admin: 01/04/17 11:26 Dose: 110 mls/hr Magnesium Oxide (Magox 400 Tab*) 400 mg PO DAILY [facility] Last Admin: 01/04/17 09:41 Dose: 400 mg Multi-Ingredient Liniment/Rub (Neymar Lundberg*) 1 applic TOPICAL TID PRN PRN Reason: PAIN - APPLY TO NECK/SHOULDERS Last Admin: 12/31/16 21:10 Dose: 1 applic Mupirocin (Bactroban 2 % Oint*) 1 applic TOPICAL BID [facility] Last Admin: 01/04/17 09:43 Dose: 1 applic Nitroglycerin (Nitroglycerin Tab 0.4 Mg*) 0.4 mg SL Q5M PRN PRN Reason: ANGINA Pantoprazole Sodium (Protonix Iv*) 40 mg IV BID [facility] Last Admin: 02/08/17 09:43 Dose: 40 mg Potassium Chloride (Klor Con Er Tab*) 10 meq PO DAILY [facility] Last Admin: 01/04/17 09:43 Dose: 10 meq Tramadol HCl (Ultram*) 25 mg PO TID PRN PRN Reason: PAIN Last Admin: 01/04/17 09:45 Dose: 25 mg Objective Vital Signs: Temp Pulse Resp BP Pulse Ox 98.2 F 64 18 91/49 95 01/04/17 11:21 01/04/17 11:21 01/04/17 11:21 01/04/17 11:21 01/04/17 11:21 Oxygen Devices in Use Now: None Appearance: thin, frail woman, lying, IV iron infusing. No acute distress. Eyes: No Scleral Icterus, PERRLA Ears/Nose/Mouth/Throat: Clear Oropharnyx, Mucous Membranes Moist Neck: NL Appearance and Movements; NL JVP Respiratory: Symmetrical Chest Expansion and Respiratory Effort, - - mildly decreased in the base. Cardiovascular: RRR - 2/6 systolic murmer late peaking RUSB, easily audible diastolic murmer RUSB, muffled heart sounds at the apex. Abdominal: NL Sounds; No Tenderness; No Distention Extremities: No Edema, No Clubbing, Cyanosis Skin: No Rash or Ulcers Neurological: Alert and Oriented x 3 Laboratory Results: 01/04/17 04:33 01/04/17 04:33 INR (Anticoag Therapy) 1.02 (0.89-1.11) 12/31/16 07:30 APTT 23.8 seconds (26.0-36.3) L 12/31/16 07:30 Total Bilirubin 0.80 mg/dL (0.2-1.0) 12/31/16 07:30 AST 43 U/L (13-39) H 12/31/16 07:30 ALT 30 U/L (7-52) 12/31/16 07:30 Alkaline Phosphatase 85 U/L (34-104) 12/31/16 07:30 B-Natriuretic Peptide 706 pg/mL (-100) H 12/31/16 07:30 Total Protein 6.3 g/dL (6.4-8.9) L 12/31/16 07:30 Albumin 3.3 g/dL (3.2-5.2) 02/04/17 07:30 Globulin 3.0 g/dL (2-4) 12/31/16 07:30 Albumin/Globulin Ratio 1.1 (1-3) 12/31/16 07:30 TSH 1.25 mcIU/mL (0.34-5.60) 01/01/17 10:20 12/31/16 12/31/16 12/31/16 10:30 17:15 20:50 Troponin I 0.46 H* 0.81 H* 0.60 H* Diagnostic Imaging: Limited echo today of Mitral stenosis: via continuity equation moderate MS. EF appears improved, 45-50%. EKG Data: Sinus rhythm LBBB (chronic). Assessment/Plan 81 yo female with extensive coronary and peripheral vascular disease as well as aortic and mitral valvular heart disease admitted with substernal chest pain, different than typical angina, elevated troponins and acute on top of chronic anemia and hypotensive, possibly factitious with suspicion for bilateral subclavian stensosis. Improved clinically s/p PRBC and lasix between units. EF has improved, mitral stenosis may be moderate to severe, AI and MR complicate accurate estimate. Points of Discussion: CP: CAD and/or valvular heart disease with stress of anemia. Medical manage for now, she is able to be cathed. Additional outpatient management for this frail woman with close f/u with Dr. Pleitez/cardiology should be arranged.
--- NOTE | 2017-01-04 16:53 | PN ---
Subjective Date of Service: 01/04/17 Interval History: Patient seen and examined at bedside. Pt states that she is feeling better. Denies fever, chills, shortness of breath, chest discomfort, N/V/D. Pt has been able to get up and ambulate. Tele: Sinus rhythm, A paced, rate 60-70's. Family History: Unchanged from Admission Social History: Unchanged from Admission Past Medical History: Unchanged from Admission Objective Active Medications: Acetaminophen (Tylenol Tab*) 650 mg PO Q6H PRN Reason: FEVER/PAIN Albuterol (Ventolin 2.5 Mg/3 Ml Neb.Erin*) 2.5 mg INH Q4H PRN Reason: SOB/ WHEEZING Amiodarone HCl (Cordarone Tab*) 100 mg PO DAILY AMI Atorvastatin Calcium (Lipitor*) 40 mg PO BEDTIME AMI Citalopram Hydrobromide (Celexa Tab*) 20 mg PO DAILY AMI Clonazepam (Klonopin Tab(*)) 1 mg PO BEDTIME AMI Cyanocobalamin (Vitamin B12 Tab*) 1,000 mcg PO DAILY AMI Gabapentin (Neurontin Cap(*)) 600 mg PO BEDTIME AMI Ferric Sodium Gluconate Complex 125 mg/ Sodium Chloride 110 mls @ 110 mls/hr IVPB DAILY AMI Magnesium Oxide (Magox 400 Tab*) 400 mg PO DAILY AMI Multi-Ingredient Liniment/Rub (Neymar Lundberg*) 1 applic TOPICAL TID PRN Reason: PAIN - APPLY TO NECK/SHOULDERS Mupirocin (Bactroban 2 % Oint*) 1 applic TOPICAL BID AMI Nitroglycerin (Nitroglycerin Tab 0.4 Mg*) 0.4 mg SL Q5M PRN Reason: ANGINA Pantoprazole Sodium (Protonix Iv*) 40 mg IV BID AMI Potassium Chloride (Klor Con Er Tab*) 10 meq PO DAILY AMI Tramadol HCl (Ultram*) 25 mg PO TID PRN Reason: PAIN Vital Signs 01/03/17 01/03/17 01/03/17 17:15 18:01 19:36 Temperature 98.3 F Pulse Rate 80 75 Respiratory 14 16 Rate Blood Pressure 100/53 88/51 (mmHg) O2 Sat by Pulse 97 Oximetry 01/03/17 01/03/17 01/03/17 20:00 20:04 21:26 Temperature Pulse Rate 73 Respiratory 16 16 Rate Blood Pressure 100/55 (mmHg) O2 Sat by Pulse Oximetry 01/03/17 01/04/17 01/04/17 23:49 02:31 03:15 Temperature 98.5 F 98.5 F Pulse Rate 77 70 73 Respiratory 16 14 16 Rate Blood Pressure 101/54 92/49 (mmHg) O2 Sat by Pulse 96 93 97 Oximetry 01/04/17 01/04/17 01/04/17 07:30 07:59 08:00 Temperature 97.3 F Pulse Rate 71 71 Respiratory 14 12 16 Rate Blood Pressure 111/42 96/62 (mmHg) O2 Sat by Pulse 96 98 Oximetry 01/04/17 01/04/17 01/04/17 09:45 10:29 11:21 Temperature 98.2 F Pulse Rate 68 64 Respiratory 12 14 18 Rate Blood Pressure 91/49 (mmHg) O2 Sat by Pulse 96 95 Oximetry 01/04/17 01/04/17 01/04/17 11:45 15:27 15:34 Temperature 98.3 F Pulse Rate 62 62 Respiratory 16 18 Rate Blood Pressure 82/42 82/42 (mmHg) O2 Sat by Pulse 98 Oximetry Oxygen Devices in Use Now: None Appearance: NAD, sitting up in bed. Eyes: No Scleral Icterus, PERRLA Ears/Nose/Mouth/Throat: NL Teeth, Lips, Gums, Mucous Membranes Moist Neck: NL Appearance and Movements; NL JVP, Trachea Midline Respiratory: Symmetrical Chest Expansion and Respiratory Effort, Clear to Auscultation Cardiovascular: RRR Abdominal: NL Sounds; No Tenderness; No Distention - Bowel sounds present Extremities: No Edema Skin: No Rash or Ulcers Neurological: Alert and Oriented x 3, NL Muscle Strength and Tone Lines/Tubes/Other Access: Clean, Dry and Intact Peripheral IV - site benign Nutrition: Taking PO's Result Diagrams: 01/04/17 04:33 01/04/17 04:33 Microbiology and Other Data: Microbiology 01/01/17 00:00 Aerobic Blood Culture - Preliminary Blood Venous No Growth Day 1 Anaerobic Blood Culture - Preliminary No Growth Day 1 Assess/Plan/Problems-Billing Assessment: Ms. Gutierrez is an 81 yo female with extensive coronary and peripheral vascular disease as well as aortic and mitral valvular heart disease admitted with substernal chest pain found to have elevated troponins and acute on chronic anemia. - Patient Problems (1) Elevated troponin Code(s): R79.89 - OTHER SPECIFIED ABNORMAL FINDINGS OF BLOOD CHEMISTRY SNOMED Code(s): 424666450 Comment: - Peaked at 0.81. No further CP since prior to coming to Hospital. Suspect demand ischemia from anemia. - LBBB, no EKG changes noted - Appreciate cardiology consult. Plan to medically managed elevated trops. - Pt was unable to be cathed Oct 2016, Dr. Isaacs spoke to Dr. Sherie Giles who has been following the patient as an outpt. CTA with runoff to evaluate arterial vasculature and candidacy for cath in addition to diagnostic benefit wrt subclavian stenosis. - CHF resolved after diuresing, PRBCs admin. Continue to monitor closely. Daily weights. - TTE 01/01 showing EF 35-40%, right ventricular global systolic function is normal, mild with mild-mod aortic regurg, mild -mod MS, mild TR, compared to prior echo 09/21 LVEF is newly depressed. - Repeat echo today, shows EF 45-50% - Reviewed CTA imaging with Dr. Stroud - Appreciate input. The pt does have subclavian stenosis but unsure if it is significant as her symptoms resolved with fixing her anemia. - Pt may need a diagnostic cath as outpatient (2) Anemia Code(s): D64.9 - ANEMIA, UNSPECIFIED SNOMED Code(s): 400395028 Comment: - sarah of iron def anemia secondary to possible occult GI bleed vs severe nose bleed? - HH 6 on admission. Transfused 2 units PRBCs now 8.9. Heme-negative stool. Serial stool for occult blood. - Appreciate Dr. Montes consult; recurrent iron def anemia, iron transfusion 01/01. Will follow closely as outpt. - GI consult thinks most likely from nose bleed in beginning of Nov, low suspicion for GI bleed - please see report. Recommended possible push enteroscopy when her HH is more stable. - Continue PPI (3) Cardiomyopathy Code(s): I42.9 - CARDIOMYOPATHY, UNSPECIFIED SNOMED Code(s): 63117532 Comment: - new noted cardiomyopathy EF 35-40%, 1 year ago was 50-55% - unclear etiology. - Reviewed with Dr. Stroud, she may need a diagnostic cath. Plan for outpatient if needed - Repeat echo today, shows EF 45-50% (4) Left bundle branch block Code(s): I44.7 - LEFT BUNDLE-BRANCH BLOCK, UNSPECIFIED SNOMED Code(s): 00430275 Comment: - known LBBB (5) CKD (chronic kidney disease) Code(s): N18.9 - CHRONIC KIDNEY DISEASE, UNSPECIFIED SNOMED Code(s): 605566430 Comment: - Appears to be near baseline - Check BMP in a week (6) PVD (peripheral vascular disease) Code(s): I73.9 - PERIPHERAL VASCULAR DISEASE, UNSPECIFIED SNOMED Code(s): 107706195 Comment: - s/p bilateral fem-pop - s/p left-sided carotid endarterectomy - On ASA only as outpt, hold for now due to acute anemia with possible GI bleed. (7) Valvular disease Comment: - aortic valve stenosis with mod aortic insufficiency, moderate mitral stenosis with mod-severe mitral insufficiency - pt has been following with Dr. Rehman at [facility] for possible mitral valve surgery(unlikely per Dr. Isaacs in her conversation with Dr. Rehman) (8) Hx of coronary artery disease Code(s): Z86.79 - PERSONAL HISTORY OF OTHER DISEASES OF THE CIRCULATORY SYSTEM SNOMED Code(s): 217691437 Comment: - hx of non-stemi in 2013. cardiac cath 2014 showed luminal irregularities of the LAD, 50% occlusion of left circ, RCA 30% proximal followed by 40% more distal occlusions. - Hold ASA at this time with acute anemia and possible GI bleed. - Discussed with Dr. Valle anemia - he recommends to hold off on more blood for now unless she becomes more anemic due to low EF (9) DVT prophylaxis Code(s): JPA8300 - SNOMED Code(s): 684912857 Comment: SCDS only (10) DNR (do not resuscitate) Comment: MOLST on chart Status and Disposition: Inpatient with acute anemia and elevated troponins found to have a new cardiomyopathy. Stable for discharge to home today.
[2017-01-04 17:35] VITALS: BP 96/61
--- NOTE | 2017-01-05 17:02 | DS ---
DISCHARGE SUMMARY: DATE OF ADMISSION: 12/31/16 DATE OF DISCHARGE: 01/04/17 ATTENDING PHYSICIAN: Jose Mendez MD * (dictated by Twila Ohara NP) PRIMARY CARE PROVIDER: Grecia Anderson MD PRIMARY DIAGNOSES: 1. Atypical chest pain. 2. Anemia. 3. Congestive heart failure. 4. Peripheral artery disease. 5. Possible upper gastrointestinal bleed. SECONDARY DIAGNOSES: 1. Nonobstructive coronary artery disease. 2. History of ventricular tachycardia, cardiac arrest. 3. Status post NSTEMI in 2013. 4. Hyperlipidemia. 5. Anxiety. 6. Irritable bowel. CONSULTATIONS WHILE IN THE HOSPITAL: 1. Justina Isaacs MD with Cardiology. 2. Haile Stroud MD with Interventional Cardiology. 3. Nael Anderson MD with Gastroenterology. 4. Juan Aguilar MD with Hematology. STUDIES WHILE IN THE HOSPITAL: 1. Chest x-ray on 12/31/16. Radiologist's impression: The consolidation of findings is most consistent with a mild interstitial edema. Small pleural effusion with associated left greater than right bibasilar atelectasis. Correlate clinically to exclude pneumonia. 2. Transthoracic echocardiogram on 12/31/16. Radiologist's impression: Mild concentric left ventricular hypertrophy is observed. Moderate global hypokinesis of the left ventricle is observed. The estimated ejection fraction is 35% to 40%. Abnormal left ventricular diastolic function is observed, right ventricular global systolic function is normal. There is a calcified aortic valve sclerosis, leaflets show good excursion on short-axis view. Mild aortic stenosis, NATAN maybe over-estimated due to the depressed EF. Mean gradient is 6 mmHg, DI is 0.89. There is lvts-pi-eedajeky aortic regurgitation, P1/2 404, descending aorta not visualized. There is a MAC and sclerosis of the mitral leaflets. Icwz-sc-cvcgikwx mitral regurgitation, posterior jets. There is mild -to-moderate mitral stenosis, mean gradient 4.6 mmHg. There is mild tricuspid regurgitation. The right ventricular systolic pressure is moderately elevated, estimated at 52 mmHg. Compared with prior echo of 09/21/16, the LVEF is newly depressed, previously AI estimated as moderate, estimated as moderate, MS estimated as moderate, and MR estimated as demsmknh-qk-buqtwy. Previous mean gradient across the mitral valve was 9.6 mmHg. 3. CTA of the abdomen, aorta, and runoff on 01/01/17. 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 High-grade stenosis of the bilateral renal arteries without gross change. Patent bilateral aortic bifurcation through common femoral arterial bypass grafts. No hemodynamic significant intrinsic low extremity arterial stenoses. Three-vessel runoff to the bilateral ankles. Negative for aortic aneurysm. Mild bilateral pleural effusions with partial right lower lobe and gross complete left lower lobe atelectasis. Potential gastritis, complete gastric distention limits. Assessment: Correlate with clinical presentation and can start upper GI series if deemed appropriate. Moderately atrophic kidneys with suggestion of unchanged small peripheral cortical infarct. 4. Head CTA on 01/02/17. Radiologist's impression: Atherosclerosis. This includes a high-grade stenosis of the proximal left subclavian artery consistent with the given history of subclavian steal physiology. There is no internal carotid artery stenosis by NASCET criteria. No aneurysm, vascular malformation, occlusion, or stenosis of the visualized intracranial circulation. Proximal ischemic changes. Emphysema. Cecziwkc-qd-fmkkj bilateral pleural effusions. 5. Echocardiogram from today. Radiologist's impression: By continued evaluation of the MAV is 1.03 cm2, triqybpc-ov-jylitu. No aortic insufficiency can shorten the P1/2, i.e., under estimated degree of MS. Mitral insufficiency can be overestimated, degree of mitral insufficiency can be a continuing equation. LV function is limited. On limited views appears tsus-yw-fvfbbgvo with septal dyssynchrony. DISCHARGE MEDICATIONS: New home medications: 1. Omeprazole 20 mg oral twice daily. 2. Poly iron 150 one capsule oral daily. 3. Lisinopril 2.5 mg oral daily. Continued home medications: 1. Magnesium oxide 400 mg oral daily. 2. Clonazepam 1 mg oral daily at bedtime. 3. Potassium chloride 10 mEq oral daily. 4. Amiodarone 100 mg oral daily. 5. Gabapentin 600 mg oral daily at bedtime. 6. Probiotic one capsule oral daily. 7. Acetaminophen 650 mg oral 3 times daily as needed for pain. 8. Tramadol 25 mg oral 3 times daily as needed for pain. 9. Lexapro 10 mg oral daily. 10. Atorvastatin 40 mg oral daily at bedtime. 11. Melatonin 3 mg oral daily at bedtime. 12. Vitamin B12 1000 mcg oral daily. 13. Rivastigmine 3 mg oral twice daily. 14. Mupirocin 2% apply topical twice daily. 15. Nitroglycerin 0.4 mg sublingual every 5 minutes as needed for chest pain. Medications to discussed with primary care provider: 1. Aspirin 81 mg oral daily. HISTORY OF PRESENT ILLNESS/HOSPITAL COURSE: Ms. Gutierrez is an 81-year-old female with past medical history significant for coronary artery disease, status post NSTEMI; history of V-tach cardiac arrest thought secondary to hypokalemia; nonobstructive coronary artery disease; history of orthostatic hypotension; and peripheral vascular disease, who presented to the emergency room with complaints of sudden onset of chest pain starting in the middle of the night. Ms. Gutierrez reports in the past several months having dyspnea, shortness of breath , and fatigue. She is being followed by her skin peeling machine operator, Dr. Pleitez, and was referred to skin peeling machine operator, Dr. Moody and Dr. Rehman, in [place] at [facility]. The patient was being evaluated for possible need for cardiac catheterization as well as possible mitral valve replacement. The patient reported having chest pain and then she awoke up having a squeezing sensation. The patient took 3 nitroglycerin with no relief, so the patient's called 911. It is also to note that the patient is followed by Dr. Adams for multiple myeloma. The patient also notes that she has had severe epistaxis with her last episode in October when she was seen in the emergency room and transferred to [facility] for uncontrolled bleeding. The patient was unsure if she had blood counts checked since that episode. The patient was brought to the emergency room for further evaluation of her symptoms. While in the emergency room, the patient reported that her chest pain had resolved. The patient had troponin initially of 0.13. The patient had an EKG showing sinus rhythm in the left bundle-branch block. There were no changes compared to previous EKGs. The patient was noted to be anemic with hemoglobin and hematocrit of 6.8 and 20 respectively. The patient denied any signs of rectal bleeding or melena or vaginal bleeding. The patient denied any abdominal pain, nausea, vomiting, or diarrhea. Again the patient reported dyspnea with shortness of breath, fatigue, and dizziness with position changes, but stated that had been her baseline for several months. Based off the patient 's presentation, the hospitalists were asked to evaluate the patient for admission. While in the hospital, the patient was seen in consultation by Dr. Justina Isaacs with Cardiology. It was felt that we should proceed to expediting the patient' s CT angiograms with runoff. It was also felt that as far as the patient's chest pain and elevated troponins that she could possibly be having a progression of her coronary atherosclerotic disease even though the patient felt that her pain was different than her typical anginal pain. There was concern over the patient's subclavian stenosis, which could be attributing to her headaches and arm pain and her low blood pressure is based on brachial cuff. The patient has had chronic left bundle-branch block. Her troponins peaked at 0.81. She was found to have an sgafa-vq-fatkcmi anemia. The patient received 2 units of red blood cells for her anemia. During her stay, her hemoglobin and hematocrit increased to 9.1 and 29 respectively. The patient did have mild leukocytosis that resolved. The patient's creatinine remained slightly elevated, although it appears to be around the patient's baseline of 1.4 to 1.7. As far as the patient's congestive heart failure, she received packed red blood cells and diuretics in between each unit and tolerated that well. It was felt that the patient's intestinal angina was from her peripheral vascular disease as an etiology for her chest pain. The patient is at risk for AVMs related to her aortic valve stenosis as a possible source of bleeding. The patient was seen in consultation by Dr. Aguilar with hematology, who reports the patient had had a negative EGD in 2016. It was felt that this could possibly be a periodic small bowel bleed in addition to the patient's epistaxis. The patient received IV iron during her stay with plans to continue on oral iron at discharge. The patient was seen in consultation by Dr. Nael Anderson with gastroenterology, who felt that there was no strong evidence suggesting the cause of the patient's anemia was from a GI bleed and that the patient had an EGD less than 2 years ago that was negative and that she has never had a history of AVMs in the past in the right colon or terminal ileum. It was reasonable to consider a push enteroscopy when the patient's hemoglobin was stable. The patient was seen in consultation by Dr. Haile Stroud, who noted that the patient had congestive heart failure with a decreased left ventricular systolic function with global hypokinesis and no significant coronary artery disease. The patient had had a cath in 2013. It was felt that the patient would be best served by having a cardiac catheterization at [facility] with skin peeling machine operator, Dr. Rehman. The patient continued to do well, although she was requiring supplemental oxygen at 1.5 to 3 L during her stay. The patient was ambulated in the [place] and had oxygen desaturations into the 80s with ambulation on room air. The patient did have intermittent hypotension, although there was question whether or not the patient had accurate blood pressures when using her arms due to her subclavian stenosis. The patient had an echocardiogram on December 31 showing a decreased EF of 35%. The patient had a repeat echocardiogram today on January 04 with an EF of 45% to 50%. Ms. Gutierrez is stable for discharge to home today. Vital signs are as follows: Temperature 98.3, heart rate 62, respiratory rate 18, O2 sat 98% on 2 L via nasal cannula, and blood pressure 96/61. DISCHARGE PLAN: Ms. Gutierrez will be discharged to home. Activity as tolerated. She should be on a heart-healthy diet. The patient should wear oxygen 24 hours a day. As far as the patient's congestive heart failure, her EF is improved from 35% to 45% to 50%. The patient was started on a low dose of lisinopril. The patient should have followup labs in a week to check a BMP. As far as the patient's anemia, she should follow with Dr. Aguilar for her iron-deficiency anemia. She has been instructed to call to make a followup appointment. As far as the patient's cardiac status including her coronary artery disease, cardiomyopathy, and congestive heart failure; the patient has an appointment with Dr. Pleitez on January 18 at 3 p.m. The patient has also been instructed to keep her appointment with Dr. Rehman on January 27 at [facility]. The patient should see her primary care provider, Dr. Grecia Anderson. She has an appointment for January 10 at 10 a.m. She has been asked to get a BMP checked prior to that appointment. As far as the patient's anemia, she has been started on poly iron to take daily. As far as the possibility of having a GI bleed, the patient has been started on omeprazole. At this time, I recommend holding her aspirin for now and that can be restarted in the future once we are sure that she does not have a GI bleed. Again for the patient's heart failure, the patient has been started on a low-dose lisinopril. The patient had new prescription sent in for nitroglycerin tablets. The patient has been instructed to return to the emergency room for shortness of breath or chest discomfort. As far as the patient is having possible GI bleed, it is recommended that in the future, she try for a push endoscopy and should be referred to GI for that procedure. As far as the patient's subclavian stenosis , I would recommend monitoring her blood pressures on her legs and not on her arms. This is a summarized report of a complex medical history and hospital stay. For further details, please see the entire medical record. TIME SPENT: Time for this discharge was 50 minutes and 25 minutes was spent face- to-face with the patient and , discussing discharge plans and instructions. CONDITION ON DISCHARGE: Stable. Reviewed by MADDIE JONES 01/12/17 1908 CC: Grecia Anderson MD; Dr. Pleitez; Dr. Aguilar, Dr. Rehman in [place] * [id number]/[facility] #: [id number] COREY
--- NOTE | 2017-03-24 21:15 | HP ---
HISTORY AND PHYSICAL: ADDENDUM: Please note that by mistake, it was placed in the patient's medical record in this history and physical that the patient had a history of multiple myeloma. She in fact does not have history of multiple myeloma and is treated by Dr. Aguilar and Dr. Adams for iron deficiency anemia. [id number]/[facility] #: [id number] MTDD
== END 2017-01-04 20:10 | disposition home or self-care (01) | DRG 811 ==
LOC: ED 07:12 → ICU 09:17 → MEDTELE 01-02 12:20
PROVIDERS: ADMIT Internal Medicine; ATTEND Internal Medicine
PROC: 30233N1 Transfusion of Nonautologous Red Blood Cells into Peripheral Vein, Percutaneous Approach (ICD-10-PCS; principal; 2016-12-31)
DX: D50.9 Iron deficiency anemia, unspecified (principal); I50.21 Acute systolic (congestive) heart failure; I95.9 Hypotension, unspecified; I42.9 Cardiomyopathy, unspecified; I27.2 Other secondary pulmonary hypertension; I13.0 Hypertensive heart and chronic kidney disease with heart failure and stage 1 through stage 4 chronic kidney disease, or unspecified chronic kidney disease; G45.8 Other transient cerebral ischemic attacks and related syndromes; K92.2 Gastrointestinal hemorrhage, unspecified; J98.11 Atelectasis; I25.10 Atherosclerotic heart disease of native coronary artery without angina pectoris; E78.00 Pure hypercholesterolemia, unspecified; J45.909 Unspecified asthma, uncomplicated; K59.09 Other constipation; M13.849 Other specified arthritis, unspecified hand; M13.879 Other specified arthritis, unspecified ankle and foot; F41.9 Anxiety disorder, unspecified; H26.9 Unspecified cataract; G43.909 Migraine, unspecified, not intractable, without status migrainosus; I73.9 Peripheral vascular disease, unspecified; E78.5 Hyperlipidemia, unspecified; K58.9 Irritable bowel syndrome, unspecified; K21.9 Gastro-esophageal reflux disease without esophagitis; F32.9 Major depressive disorder, single episode, unspecified; G89.29 Other chronic pain; M54.9 Dorsalgia, unspecified; M54.2 Cervicalgia; Z66 Do not resuscitate; R79.89 Other specified abnormal findings of blood chemistry; I44.7 Left bundle-branch block, unspecified; N18.9 Chronic kidney disease, unspecified; R07.89 Other chest pain; D72.829 Elevated white blood cell count, unspecified; I08.3 Combined rheumatic disorders of mitral, aortic and tricuspid valves; Z88.1 Allergy status to other antibiotic agents; Z88.6 Allergy status to analgesic agent; Z88.8 Allergy status to other drugs, medicaments and biological substances; Z91.010 Allergy to peanuts; Z91.018 Allergy to other foods; Z91.048 Other nonmedicinal substance allergy status; Z87.01 Personal history of pneumonia (recurrent); Z85.828 Personal history of other malignant neoplasm of skin; Z90.49 Acquired absence of other specified parts of digestive tract; Z82.49 Family history of ischemic heart disease and other diseases of the circulatory system; Z72.89 Other problems related to lifestyle; Z87.891 Personal history of nicotine dependence; I25.2 Old myocardial infarction; Z85.79 Personal history of other malignant neoplasms of lymphoid, hematopoietic and related tissues; Z90.710 Acquired absence of both cervix and uterus; Z90.722 Acquired absence of ovaries, bilateral
CPT/HCPCS: 36415; 70496; 70498; 71010; 75635; 80048; 80053; 81003; 81015; 82272; 82728; 82746; 83010; 83540; 83550; 83605; 83615; 83735; 83880; 83883; 84443; 84484; 85014; 85018; 85025; 85045; 85610; 85652; 85730; 86140; 86850; 86900; 86901; 86922; 87040; 93005; 93306; 93308; 94760; 99232; 99284; A9270-GY; J1940; J2916; J3475; P9040; Q9967

== ENCOUNTER 2017-07-12 12:55 | Emergency (ER) | payer MEDICARE, OTHER ==
[2017-07-12 13:32] VITALS: BP 101/62
--- NOTE | 2017-07-12 14:09 | UC ---
Skin Complaint HPI - HPI Summary HPI Summary: 81 YEAR OLD FEMALE PRESENTS WITH COMPLAINS OF DIFFUSE RASH SECONDARY TO FLEA BITES. - History of Current Complaint Chief Complaint: UCRash Time Seen by Provider: 07/12/17 14:03 Stated Complaint: RASH Hx Obtained From: Patient Hx Last Menstrual Period: years ago. ?: No Onset/Duration: Lasting Days Skin Exposure Onset/Duration: Days Ago Onset Severity: Moderate Current Severity: Moderate Pain Scale Used: 0-10 Numeric - 2 - Allergy/Home Medications Allergies/Adverse Reactions: Allergies Allergy/AdvReac Type Severity Reaction Status Date / Time Cephalexin AdvReac Intermediate GI Upset Verified 07/12/17 13:32 Ibuprofen AdvReac Nausea Verified 07/12/17 13:32 METALS Allergy Unknown Rash Uncoded 07/12/17 13:32 CHESTNUTS Allergy LIPS SWELL Uncoded 07/12/17 13:32 AND ARE VERY PAINFUL PEANUTS Allergy Swelling Uncoded 07/12/17 13:32 Of Face,Lips,& Throat SEASONAL Allergy STUFFY Uncoded 07/12/17 13:32 HAYFEVER/ENVIRONMENTAL NOSE, WATERY EYES msg AdvReac Mild headache; Uncoded 07/12/17 13:32 jitters Review of Systems Constitutional: Negative Skin: Rash Eyes: Negative ENT: Negative Respiratory: Negative Cardiovascular: Negative Gastrointestinal: Negative Genitourinary: Negative Motor: Negative Neurovascular: Negative Musculoskeletal: Negative Neurological: Negative Psychological: Negative All Other Systems Reviewed And Are Negative: Yes PMH/Surg Hx/FS Hx/Imm Hx Previously Healthy: Yes Other History Of: Anticoagulant Therapy Negative For: HIV, Hepatitis B, Hepatitis C - Surgical History Surgical History: Yes Surgery Procedure, Year, and Place: Hysterectomy, 1983, [facility] [place]. Choleycystectomy, 1993, [facility] [place]. nose surgery. BILAT.Femoral bypass, 1996, [facility] [place]. Left carotid endardectomy. Right first toe, first joint replacement, 2005, [place]. LIGATION OF ETHMOIDAL INTERNAL MAXILIARY ARTERIES. MYLEOGRAM. LASER SURGERY FOR EPISTAXIS X 6 OVER PAST 10 YEARS - Family History Known Family History: Positive: None, Hypertension Negative: Cardiac Disease - Social History Alcohol Use: Rare Alcohol Amount: a glass of wine a few times a week Substance Use Type: None Smoking Status (MU): Former Smoker Type: Cigarettes Amount Used/How Often: 1 PPD Length of Time of Smoking/Using Tobacco: 47 YEARS Have You Smoked in the Last Year: No When Did the Patient Quit Smoking/Using Tobacco: 1996 - Immunization History Most Recent Influenza Vaccination: 07/2014 Most Recent Tetanus Shot: less than 10 years Most Recent Pneumonia Vaccination: 2007 Physical Exam Triage Information Reviewed: Yes Vital Signs: Initial Vital Signs Temp 37.1 C 07/12/17 13:29 Pulse 65 07/12/17 13:29 Resp 16 07/12/17 13:29 BP 101/62 07/12/17 13:29 Pulse Ox 97 07/12/17 13:29 Eye Exam: Normal ENT Exam: Normal Dental Exam: Normal Neck exam: Normal Neck: Positive: 1 Respiratory Exam: Normal Cardiovascular Exam: Normal Abdominal Exam: Normal Musculoskeletal Exam: Normal Neurological Exam: Normal Psychological Exam: Normal Skin: Positive: rashes Course/Dx - Diagnoses Provider Diagnoses: RASH. FLEA BITES Discharge - Discharge Plan Condition: Stable Disposition: HOME Prescriptions: Methylprednisolone [Medrol Dosepak 4 MG*] 4 mg PO .SEE TRI INSTRUCTION #21 tab Triamcinolone 0.1% CREAM (NF) [Kenalog 0.1% Cream (NF)] 1 applic TOPICAL TID PRN #90 gm PRN Reason: Itching Patient Education Materials: Acute Rash (ED) Referrals: Grecia Anderson MD [Primary Care Provider] - If Needed
== END 2017-07-12 14:28 | disposition home or self-care (01) ==
LOC: UCEAST 12:55
DX: T14.8 Other injury of unspecified body region (principal); W57.XXXA Bitten or stung by nonvenomous insect and other nonvenomous arthropods, initial encounter; Y93.9 Activity, unspecified; Y99.9 Unspecified external cause status; Z88.8 Allergy status to other drugs, medicaments and biological substances; Z88.6 Allergy status to analgesic agent; Z88.1 Allergy status to other antibiotic agents; Z91.02 Food additives allergy status; Z91.010 Allergy to peanuts
CPT/HCPCS: 99212; G0463

== ENCOUNTER 2018-03-24 08:41 | Emergency (ER) | payer MEDICARE, OTHER ==
[2018-03-24] MEDS ORDERED: NS 0.9% 1000 ML* 1,000 ML IV ONE (09:14)
[2018-03-24] MEDS ORDERED: Pantoprazole IV* 40 MG IV ONE (09:17)
[2018-03-24 09:38] LABS: ABS Basophils 0 10^3/ul (0-0.2); ABS Eosinophils 0.2 10^3/ul (0-0.6); ABS Lymphocytes 0.7 10^3/ul (1.0-4.8); ABS Neutrophils 8.8 10^3/ul (1.5-7.7); ABS Nucleated RBC 0 10^3/ul; Eosinophil % 2.3 % (0-6); Hematocrit 23 % (35-47); Hemoglobin 7.4 g/dl (12.0-16.0); Lymphocyte % 6.9 % (25-47); Mean Corpuscular HGB Conc 33 g/dl (31-36); Mean Corpuscular Hemoglobin 31 pg (27-31); Mean Corpuscular Volume 95 fL (80-97); Mean Platelet Volume 10.5 um3 (7.4-10.4); Nucleated Red Blood Cells % 0; Platelet Count 164 10^3/ul (150-450); Red Blood Count 2.38 10^6/ul (4.0-5.4); Red Cell Distribution Width 18 % (10.5-15); White Blood Count 10.8 10^3/ul (3.5-10.8)
[2018-03-24 09:50] LABS: INR 0.96 (0.77-1.02)
[2018-03-24 09:56] LABS: EGFR Non-African American 44.4 (>60)
[2018-03-24] MEDS ORDERED: Pantoprazole IV* 80 MG in NS 0.9% 250 ML* 250 ML IVPB SCH (10:00)
--- NOTE | 2018-03-24 10:20 | RAD ---
Indication: Cough. Possible GI bleed. Comparison: September 15, 2017 Technique: Upright AP 0945 hours Report: Elevated lung volumes and mild prominence of the interstitial markings. Patchy airspace consolidation at the RIGHT lung base. Grossly clear pleural spaces. Negative for pneumothorax. Mild cardiomegaly. Unremarkable central pulmonary vasculature. Gallbladder fossa and epigastric surgical clips. IMPRESSION: 1. Mild RIGHT basilar airspace consolidation concerning for potential pneumonia. 2. Stigmata of chronic obstructive pulmonary disease. 3. Mild cardiomegaly without compelling evidence for pulmonary edema.
--- NOTE | 2018-03-24 10:34 | ED ---
Daryl Barahona Tecjoon, scribed for Azul Carolina MD on 03/24/18 at 0919 . GI/ HPI - HPI Summary HPI Summary: This patient is a 82 year old female BIBA to [facility] with a chief complaint of GI bleeding since this morning. The pain is rated 7/10 in severity. Symptoms aggravated by nothing. Symptoms alleviated by nothing. The patient treated the pain with nothing TALENT [employer]ER. Patient additionally reports hematemesis. Patient denies any previous similar experience. She denies any CP, SOB or palpitations - History of Current Complaint Chief Complaint: EDGIBleed Time Seen by Provider: 03/24/18 08:51 Stated Complaint: POSSIBLE GI BLEED Hx Obtained From: Patient Hx Last Menstrual Period: years ago. Onset/Duration: Started Hours Ago, Still Present Timing: Constant Severity: Moderate Pain Intensity: 7 - /10 Location of Pain: Diffuse Associated Signs and Symptoms: Positive: Other: - hemoptysis, dizziness, rectal bleeding Aggravating Factor(s): Nothing Alleviating Factor(s): Nothing - Additional Pertinent History Primary Care Physician: MELQUIADES - Allergy/Home Medications Allergies/Adverse Reactions: Allergies Allergy/AdvReac Type Severity Reaction Status Date / Time cephalexin Allergy GI Upset Verified 01/15/18 12:36 ibuprofen Allergy Nausea Verified 01/15/18 12:36 METALS Allergy Unknown Rash Uncoded 01/15/18 12:34 CHESTNUTS Allergy LIPS SWELL Uncoded 01/15/18 12:34 AND ARE VERY PAINFUL PEANUTS Allergy Swelling Uncoded 01/15/18 12:34 Of Face,Lips,& Throat SEASONAL Allergy STUFFY Uncoded 01/15/18 12:34 HAYFEVER/ENVIRONMENTAL NOSE, WATERY EYES msg AdvReac Mild headache; Uncoded 01/15/18 12:34 jitters Home Medications: Home Medications Acetaminophen TAB* [Tylenol TAB*] 650 mg PO TID PRN 03/24/18 [History Confirmed 03/24/18] Clopidogrel TAB* [Plavix TAB*] 75 mg PO DAILY 03/24/18 [History Confirmed ] Escitalopram (NF) [Lexapro 10 mg (NF)] 10 mg PO DAILY 03/24/18 [History Confirmed 03/24/18] Gabapentin CAP(*) [Neurontin 300 CAP(*)] 600 mg PO BEDTIME 03/24/18 [History Confirmed 03/24/18] Ipratropium [place] 2 spray BOTH NARES BID 03/24/18 [History Confirmed 03/24/18] Polyethylene Glycol 3350* [Miralax*] 17 gm PO DAILY PRN 03/24/18 [History Confirmed 03/24/18] clonazePAM [Clonazepam] 0.5 mg PO BID PRN 03/24/18 [History Confirmed 03/24/18] PMH/Surg Hx/FS Hx/Imm Hx Previously Healthy: No Endocrine/Hematology History: Reports: Hx Anticoagulant Therapy Denies: Hx Diabetes, Hx Thyroid Disease Cardiovascular History: Reports: Hx Angina - RARELY USES NITRO, Hx Cardiomegaly , Hx Coronary Artery Disease - ON MED, Hx Hypercholesterolemia, Hx Hypotension - current, Hx Hypertension, 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, Other Cardiovascular Problems/Disorders - fem pop , L CEA, cardiac cath oct Denies: Hx Congestive Heart Failure, Hx Deep Vein Thrombosis, Hx Myocardial Infarction, Hx Pacemaker/ICD Respiratory History: Reports: Hx Asthma - POSSIBLY IN THE PAST, Hx Pneumonia Denies: Hx Chronic Obstructive Pulmonary Disease (COPD), Hx Lung Cancer GI History: Reports: Other GI Disorders - CHRONIC CONSTIPATION-TAKES LAXATIVE DAILY Denies: Hx Gall Bladder Disease, Hx Gastroesophageal Reflux Disease, Hx Gastrointestinal Bleed, Hx Ulcer, Hx Urosepsis History: Denies: Hx Kidney Stones, Hx Renal Disease, Other Problems/Disorders Musculoskeletal History: Reports: Hx Arthritis - HANDS & FEET Denies: Hx Rheumatoid Arthritis, Hx Osteoporosis Sensory History: Reports: Hx Cataracts - BILAT, Hx Contacts or Glasses Denies: Hx Hearing Aid Opthamlomology History: Reports: Hx Cataracts - BILAT, Hx Contacts or Glasses Neurological History: Reports: Hx Headaches - TAKES TRAMADOL PRN, Hx Migraine Denies: Hx Dementia, Hx Seizures, Hx Transient Ischemic Attacks (TIA) Psychiatric History: Reports: Hx Anxiety - ON MED, Hx Depression - ON MED - Cancer History Cancer Type, Location and Year: skin cancer left leg ? type. Hx Chemotherapy: No Hx Radiation Therapy: No - Surgical History Surgery Procedure, Year, and Place: [place] [facility] [place] [facility] [place]. BILAT.[place], [place], [facility] [place] endardectomy. Right first toe, first joint replacement, 2006, [place]. LIGATION OF ETHMOIDAL INTERNAL MAXILIARY ARTERIES. MYLEOGRAM. LASER SURGERY FOR EPISTAXIS X 6 OVER PAST 10 YEARS Hx Anesthesia Reactions: No - Immunization History Date of Tetanus Vaccine: up to date Date of Influenza Vaccine: up to date Infectious Disease History: No Infectious Disease History: Denies: Hx Clostridium Difficile, Hx Hepatitis, Hx Human Immunodeficiency Virus (HIV), Hx of Known/Suspected MRSA, Hx Shingles, Hx Tuberculosis, Hx Known/ Suspected VRE, Hx Known/Suspected VRSA, History Other Infectious Disease, Traveled Outside the [place] in Last 30 Days - Family History Known Family History: Positive: Hypertension Negative: Cardiac Disease - Social History [facility]: [facility] Alcohol Use: Rare Alcohol Amount: a glass of wine a few times a week Hx Substance Use: No Substance Use Type: Reports: None Hx Tobacco Use: Yes Smoking Status (MU): Former Smoker Type: Cigarettes Amount Used/How Often: 1 PPD Length of Time of Smoking/Using Tobacco: 47 YEARS Have You Smoked in the Last Year: No Review of Systems Negative: Fever Positive: Other - hemoptysis Genitourinary: Other - rectal bleeding Neurological: Other - dizziness All Other Systems Reviewed And Are Negative: Yes Physical Exam - Summary Physical Exam Summary: GENERAL: Patient is a well developed and nourished female who is lying comfortable in the stretcher. Patient is not in any acute respiratory distress. HEAD AND FACE: Normocephalic EYES: PERRLA, EOMI x 2. EARS: Hearing grossly intact. MOUTH: Dried blood in mouth NECK: Supple, trachea is midline, no adenopathy, no JVD, no carotid bruit. CHEST: Symmetric, no tenderness at palpation LUNGS: Clear to auscultation bilaterally. No wheezing or crackles. CVS: Regular rate and rhythm, S1 and S2 present, no murmurs or gallops appreciated. ABDOMEN: Soft, non-tender. Bowel sounds are normal. No abdominal abnormal pulsations. EXTREMITIES: Full ROM in all major joints, no edema, no cyanosis or clubbing. NEURO: Alert and oriented x 3. No acute neurological deficits. Speech is normal and follows commands. RECTAL: Dried blood in rectal area. SKIN: Dry and warm Triage Information Reviewed: Yes Vital Signs On Initial Exam: Initial Vitals Pulse Resp Pulse Ox 86 16 97 03/24/18 08:46 03/24/18 08:46 03/24/18 08:46 Vital Signs Reviewed: Yes Diagnostics - Vital Signs Vital Signs Temp Pulse Resp BP Pulse Ox 03/24/18 08:49 98.8 F 80 14 115/67 99 03/24/18 08:47 82 10 115/67 98 03/24/18 08:46 86 16 97 - Laboratory Lab Results: Lab Results 03/24/18 03/24/18 03/24/18 Range/Units 09:30 09:30 09:30 WBC 10.8 (3.5-10.8) 10^3/ul RBC 2.38 L (4.0-5.4) 10^6/ul Hgb 7.4 L (12.0-16.0) g/dl Hct 23 L (35-47) % MCV 95 (80-97) fL MCH 31 (27-31) pg MCHC 33 (31-36) g/dl RDW 18 H (10.5-15) % Plt Count 164 (150-450) 10^3/ul MPV 10.5 H (7.4-10.4) um3 Neut % (Auto) 81.3 (38-83) % Lymph % (Auto) 6.9 L (25-47) % Sevier % (Auto) 9.2 H (0-7) % Eos % (Auto) 2.3 (0-6) % Baso % (Auto) 0.3 (0-2) % Absolute Neuts (auto) 8.8 H (1.5-7.7) 10^3/ul Absolute Lymphs (auto) 0.7 L (1.0-4.8) 10^3/ul Absolute Monos (auto) 1.0 H (0-0.8) 10^3/ul Absolute Eos (auto) 0.2 (0-0.6) 10^3/ul Absolute Basos (auto) 0 (0-0.2) 10^3/ul Absolute Nucleated RBC 0 10^3/ul Nucleated RBC % 0 INR (Anticoag Therapy) 0.96 (0.77-1.02) APTT 27.0 (26.0-36.3) seconds Sodium (139-145) mmol/L Potassium (3.5-5.0) mmol/L Chloride (101-111) mmol/L Carbon Dioxide (22-32) mmol/L Anion Gap (2-11) mmol/L BUN (6-24) mg/dL Creatinine (0.51-0.95) mg/dL Est GFR ( Amer) (>60) Est GFR (Non-Af Amer) (>60) BUN/Creatinine Ratio (8-20) Glucose (70-100) mg/dL Lactic Acid (0.5-2.0) mmol/L Calcium (8.6-10.3) mg/dL Total Bilirubin (0.2-1.0) mg/dL AST (13-39) U/L ALT (7-52) U/L Alkaline Phosphatase (34-104) U/L Troponin I (<0.04) ng/mL Total Protein (6.4-8.9) g/dL Albumin (3.2-5.2) g/dL Globulin (2-4) g/dL Albumin/Globulin Ratio (1-3) Blood Type O Positive Antibody Screen Pending Crossmatch See Detail 03/24/18 03/24/18 Range/Units 09:30 09:30 WBC (3.5-10.8) 10^3/ul RBC (4.0-5.4) 10^6/ul Hgb (12.0-16.0) g/dl Hct (35-47) % MCV (80-97) fL MCH (27-31) pg MCHC (31-36) g/dl RDW (10.5-15) % Plt Count (150-450) 10^3/ul MPV (7.4-10.4) um3 Neut % (Auto) (38-83) % Lymph % (Auto) (25-47) % [place]vier % (Auto) (0-7) % Eos % (Auto) (0-6) % Baso % (Auto) (0-2) % Absolute Neuts (auto) (1.5-7.7) 10^3/ul Absolute Lymphs (auto) (1.0-4.8) 10^3/ul Absolute Monos (auto) (0-0.8) 10^3/ul Absolute Eos (auto) (0-0.6) 10^3/ul Absolute Basos (auto) (0-0.2) 10^3/ul Absolute Nucleated RBC 10^3/ul Nucleated RBC % INR (Anticoag Therapy) (0.77-1.02) APTT (26.0-36.3) seconds Sodium 140 (139-145) mmol/L Potassium 4.6 (3.5-5.0) mmol/L Chloride 102 (101-111) mmol/L Carbon Dioxide 34 H (22-32) mmol/L Anion Gap 4 (2-11) mmol/L BUN 29 H (6-24) mg/dL Creatinine 1.17 H (0.51-0.95) mg/dL Est GFR ( Amer) 57.1 (>60) Est GFR (Non-Af Amer) 44.4 (>60) BUN/Creatinine Ratio 24.8 H (8-20) Glucose 112 H (70-100) mg/dL Lactic Acid 0.5 (0.5-2.0) mmol/L Calcium 8.6 (8.6-10.3) mg/dL Total Bilirubin 0.70 (0.2-1.0) mg/dL AST 24 (13-39) U/L ALT 10 (7-52) U/L Alkaline Phosphatase 70 (34-104) U/L Troponin I 0.05 H* (<0.04) ng/mL Total Protein 5.6 L (6.4-8.9) g/dL Albumin 3.0 L (3.2-5.2) g/dL Globulin 2.6 (2-4) g/dL Albumin/Globulin Ratio 1.2 (1-3) Blood Type Antibody Screen Crossmatch Result Diagrams: 03/24/18 09:30 03/24/18 09:30 Lab Statement: Any lab studies that have been ordered have been reviewed, and results considered in the medical decision making process. - Radiology CXR Xray Interpretation: No Acute Changes - CXR reveals, per radiologist, IMPRESSION : NO ACUTE PROCESS. ED physician has reviewed this radiology report. Radiology Interpretation Completed By: Radiologist - EKG 950 Cardiac Rate: NL EKG Rhythm: Sinus Rhythm - 82 BPM EKG Interpretation: Deep inverted T waves V2-V6 GIGU Course/Dx - Course Course Of Treatment: This patient is a 82 year old female BIBA to [facility] with a chief complaint of GI bleeding since this morning. An EKG, taken 950 reveals NSR (82 BPM), ischemic changes most lilely related to acute blood loss. Patient has no CP. CXR reveals, per radiologist, IMPRESSION: NO ACUTE PROCESS. ED physician has reviewed this radiology report. Bloodwork Obtained. Her workup is remarkable for low hemoglobin at 7.4. Vitals are otherwise stable. Patient is receiving IV fluids, PPI drip. She is ordered for 2 units of pack red blood cells. Patient is hemodynamically stable, upon transfer. Troponin is mildly elevated at 0.05, but compared to last troponin, it is trending down. Patient denies any chest pain. We discussed patient care with Dr. García (ED Provider at [facility]) and they agreed to accept the transfer. Patient will be transferred to [facility] given no GI coverage. Patient will be given a diagnosis of GI Bleed. The patient is agreeable with this plan. - Diagnoses Provider Diagnoses: GI bleed - Physician Notifications Instructed by Provider To: Transfer - We discussed patient care with Dr. García (ED Provider at [facility]) and they agreed to accept the transfer. Admit/Transition Orders Completed By ED Provider: Yes Discharge - Sign-Out/Discharge Documenting (check all that apply): Discharge/Admit/Transfer - Discharge Plan Condition: Stable Disposition: ADMITTED TO OTHER HOSPITAL Discharge Disposition Comment: Transferred to [facility] Referrals: Grecia Anderson MD [Primary Care Provider] - - Billing Disposition and Condition Condition: STABLE Disposition: HOSP-OTH The documentation as recorded by the Daryl hall Tecjoon accurately reflects the service I personally performed and the decisions made by , Azul Carolina MD.
[2018-03-24 11:19] VITALS: BP 105/53
== END 2018-03-24 11:20 | disposition short-term general hospital (02) ==
LOC: ED 08:41
DX: K92.2 Gastrointestinal hemorrhage, unspecified (principal); K92.0 Hematemesis; Z79.01 Long term (current) use of anticoagulants; I25.119 Atherosclerotic heart disease of native coronary artery with unspecified angina pectoris; I10 Essential (primary) hypertension; E78.00 Pure hypercholesterolemia, unspecified; F41.9 Anxiety disorder, unspecified; F32.9 Major depressive disorder, single episode, unspecified; Z85.828 Personal history of other malignant neoplasm of skin; Z88.1 Allergy status to other antibiotic agents; Z88.6 Allergy status to analgesic agent; Z87.891 Personal history of nicotine dependence
CPT/HCPCS: 36415; 36430; 71045; 80053; 83605; 84484; 85025; 85610; 85730; 86850; 86900; 86901; 86922; 93005; 96374; 99285; P9040

== ENCOUNTER 2018-05-03 22:21 | Emergency (ER) | payer MEDICARE, OTHER ==
[2018-05-03] MEDS ORDERED: Lidocaine 2% JELLY* 6 ML JELLY TOPICAL ONE (22:32)
[2018-05-03] MEDS ORDERED: traMADol TAB* 50 MG PO ONE (22:40)
[2018-05-03] MEDS ORDERED: Amoxicillin/Clavulanate TAB* 875 MG PO ONE (22:41)
--- NOTE | 2018-05-04 00:04 | ED ---
Lloyd Barahona Angela, scribed for Juan Luis Barajas MD on 05/03/18 at 2238 . Throat Pain/Nasal Congestion - HPI Summary HPI Summary: This pt is an 82 y/o female presenting to [facility] via EMS from [facility] for epistaxis. Pt reports she has had intermittent epistaxis since this morning. Pt states it stopped for a while but then continued. She notes she thought her bleeding had slowed down but epistaxis began again intermittently at 19:00. Pt additionally notes nose pain. She denies SOB, chest pain, nausea, vomiting. - History of Current Complaint Chief Complaint: EDBleedingDisorder Time Seen by Provider: 05/03/18 22:25 Hx Obtained From: Patient Onset/Duration: Lasting Hours, Still Present Severity: Moderate Associated Signs And Symptoms: Positive: Sinus Discomfort. Negative: FB Sensation, Drooling, Wheezing, Hoarseness Cough: None - Allergies/Home Medications Allergies/Adverse Reactions: Allergies Allergy/AdvReac Type Severity Reaction Status Date / Time cephalexin Allergy GI Upset Verified 01/15/18 12:36 ibuprofen Allergy Nausea Verified 01/15/18 12:36 METALS Allergy Unknown Rash Uncoded 01/15/18 12:34 CHESTNUTS Allergy LIPS SWELL Uncoded 01/15/18 12:34 AND ARE VERY PAINFUL PEANUTS Allergy Swelling Uncoded 01/15/18 12:34 Of Face,Lips,& Throat SEASONAL Allergy STUFFY Uncoded 01/15/18 12:34 HAYFEVER/ENVIRONMENTAL NOSE, WATERY EYES msg AdvReac Mild headache; Uncoded 01/15/18 12:34 jitters Home Medications: Home Medications Acetaminophen TAB* [Tylenol TAB*] 650 mg PEG TUBE Q4H PRN 05/03/18 [History Confirmed 05/03/18] Amiodarone TAB* [Cordarone TAB*] 100 mg PEG TUBE DAILY 05/03/18 [History Confirmed 05/03/18] Artificial Tears* 15 ML BTL [Polyvinyl Alcohol 1.4% OPTH*] 1 drop RIGHT EYE Q2H PRN 05/03/18 [History Confirmed 05/03/18] Atorvastatin* [Lipitor*] 40 mg PEG TUBE MOWEFR 05/03/18 [History Confirmed 05/03] Clopidogrel TAB* [Plavix TAB*] 75 mg PO DAILY 05/03/18 [History Confirmed ] Cyanocobalamin TAB* [Vitamin B12 TAB*] 500 mcg PO DAILY 05/03/18 [History Confirmed 05/03/18] Docusate CAP* [Colace Cap*] 100 mg PO Q12H PRN 05/03/18 [History Confirmed 05/03] Escitalopram (NF) [Lexapro 10 mg (NF)] 10 mg PEG TUBE DAILY 05/03/18 [History Confirmed 05/03/18] Ferrous Sulfate TAB* 325 mg PO DAILY 05/03/18 [History Confirmed 05/03/18] Gabapentin CAP(*) [Neurontin 300 CAP(*)] 600 mg PEG TUBE BEDTIME 05/03/18 [ History Confirmed 05/03/18] Lactobacillus Acidophilus [Freeze Dried Acidophilus] 1 cap PEG TUBE DAILY [History Confirmed 05/03/18] Magnesium Oxide [Magnesium 400 mg] 400 mg PEG TUBE BID 05/03/18 [History Confirmed 05/03/18] Melatonin (NF) 5 mg PO BEDTIME PRN 05/03/18 [History Confirmed 05/03/18] clonazePAM TAB(*) [KlonoPIN TAB(*)] 0.5 mg PO Q12H PRN 05/03/18 [History Confirmed 05/03/18] traMADol TAB* [Ultram*] 25 mg PEG TUBE Q8H PRN 05/03/18 [History Confirmed 05/03] PMH/Surg Hx/FS Hx/Imm Hx Endocrine/Hematology History: Reports: Hx Anticoagulant Therapy Denies: Hx Diabetes, Hx Thyroid Disease Cardiovascular History: Reports: Hx Angina - RARELY USES NITRO, Hx Cardiomegaly , Hx Coronary Artery Disease - ON MED, Hx Hypercholesterolemia, Hx Hypotension - current, Hx Hypertension, 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, Other Cardiovascular Problems/Disorders - fem pop , L CEA, cardiac cath oct Denies: Hx Congestive Heart Failure, Hx Deep Vein Thrombosis, Hx Myocardial Infarction, Hx Pacemaker/ICD Respiratory History: Reports: Hx Asthma - POSSIBLY IN THE PAST, Hx Pneumonia Denies: Hx Chronic Obstructive Pulmonary Disease (COPD), Hx Lung Cancer GI History: Reports: Other GI Disorders - CHRONIC CONSTIPATION-TAKES LAXATIVE DAILY Denies: Hx Gall Bladder Disease, Hx Gastroesophageal Reflux Disease, Hx Gastrointestinal Bleed, Hx Ulcer, Hx Urosepsis History: Denies: Hx Kidney Stones, Hx Renal Disease, Other Problems/Disorders Musculoskeletal History: Reports: Hx Arthritis - HANDS & FEET Denies: Hx Rheumatoid Arthritis, Hx Osteoporosis Sensory History: Reports: Hx Cataracts - BILAT, Hx Contacts or Glasses Denies: Hx Hearing Aid Opthamlomology History: Reports: Hx Cataracts - BILAT, Hx Contacts or Glasses Neurological History: Reports: Hx Headaches - TAKES TRAMADOL PRN, Hx Migraine Denies: Hx Dementia, Hx Seizures, Hx Transient Ischemic Attacks (TIA) Psychiatric History: Reports: Hx Anxiety - ON MED, Hx Depression - ON MED - Cancer History Cancer Type, Location and Year: skin cancer left leg ? type. Hx Chemotherapy: No Hx Radiation Therapy: No - Surgical History Surgery Procedure, Year, and Place: Hysterectomy, 1983, [facility] [place]. Choleycystectomy, 1993, [facility] [place]. nose surgery. BILAT.Femoral bypass, 1996, [facility] [place]. Left carotid endardectomy. Right first toe, first joint replacement, 2005, [place]. LIGATION OF ETHMOIDAL INTERNAL MAXILIARY ARTERIES. MYLEOGRAM. LASER SURGERY FOR EPISTAXIS X 6 OVER PAST 10 YEARS Hx Anesthesia Reactions: No - Immunization History Date of Tetanus Vaccine: up to date Date of Influenza Vaccine: up to date Infectious Disease History: Denies: Hx Clostridium Difficile, Hx Hepatitis, Hx Human Immunodeficiency Virus (HIV), Hx of Known/Suspected MRSA, Hx Shingles, Hx Tuberculosis, Hx Known/ Suspected VRE, Hx Known/Suspected VRSA, History Other Infectious Disease - Family History Known Family History: Positive: None, Hypertension Negative: Cardiac Disease - Social History Alcohol Use: Rare Alcohol Amount: a glass of wine a few times a week Hx Substance Use: No Substance Use Type: Reports: None Hx Tobacco Use: Yes Smoking Status (MU): Former Smoker Type: Cigarettes Amount Used/How Often: 1 PPD Length of Time of Smoking/Using Tobacco: 47 YEARS Have You Smoked in the Last Year: No Review of Systems Negative: Fever ENT: Other - Nose pain Positive: Epistaxis Negative: Chest Pain Negative: Shortness Of Breath Negative: Vomiting, Nausea Genitourinary: Negative Musculoskeletal: Negative Skin: Negative Neurological: Negative All Other Systems Reviewed And Are Negative: Yes Physical Exam - Summary Physical Exam Summary: VITAL SIGNS: Reviewed. GENERAL: Patient is an elderly and fragile female who is lying comfortable in the stretcher. Patient is not in any acute respiratory distress. HEAD AND FACE: No signs of trauma. No ecchymosis, hematomas or skull depressions. Pt is having active bleeding in the left nostril. There is blood in the oropharynx. EYES: PERRLA, EOMI x 2, No injected conjunctiva, no nystagmus. EARS: Hearing grossly intact. Ear canals and tympanic membranes are within normal limits. MOUTH: Blood in the oropharynx. NECK: Supple, trachea is midline, no adenopathy, no JVD, no carotid bruit, no c- spine tenderness, neck with full ROM. CHEST: Symmetric, no tenderness at palpation LUNGS: Clear to auscultation bilaterally. No wheezing or crackles. CVS: Regular rate and rhythm, S1 and S2 present, no murmurs or gallops appreciated. ABDOMEN: Soft, non-tender. No signs of distention. No rebound no guarding, and no masses palpated. Bowel sounds are normal. EXTREMITIES: FROM in all major joints, no edema, no cyanosis or clubbing. NEURO: Alert and oriented x 3. No acute neurological deficits. Speech is normal and follows commands. SKIN: Dry and warm Triage Information Reviewed: Yes Vital Signs On Initial Exam: Initial Vitals Temp Pulse Resp BP Pulse Ox 99.4 F 96 18 137/98 97 05/03/18 22:33 05/03/18 22:33 05/03/18 22:33 05/03/18 22:33 05/03/18 22:33 Vital Signs Reviewed: Yes Procedures - Procedure Summary Procedure Summary: Epistaxis Control Procedure Note Lidocaine gel 2% was used for local anesthesia. Used rhino rocket, 5 cm long, 1 inserted into each nostril Inflated each one with air. Good hemostasis. Pt tolerated the procedure well. Re-Evaluation - Re-Evaluation First Eval Re-Evaluation Time: 23:30 Change: Improved Comment: There is no further bleeding. Pt is hemodynamically stable. She will be discharged home to [facility]. EENT Course/Dx - Course Assessment/Plan: Pt is an 82 y/o female who presents with epistaxis. Pt reports she has had intermittent epistaxis since this morning. Pt states it stopped for a while but then continued. She notes she thought her bleeding had slowed down but epistaxis began again at 19:00. Pt additionally notes nose pain. She denies SOB, chest pain, nausea, vomiting. Rhino rockets, 5 cm long, were inserted into each nostril. Inflated each one with air. Good hemostasis. Pt tolerated the procedure well. In the ED course the pt was given Augmentin, Ultram. On re- evaluation there is no further bleeding. Pt is hemodynamically stable. She will be discharged home to [facility] with follow up from ENT in 1-2 days. Pt will be given prescriptions for Augmentin and Ultram. Pt was instructed to return to the ED for any worsening symptoms. - Diagnoses Provider Diagnoses: Epistaxis Discharge - Sign-Out/Discharge Documenting (check all that apply): Discharge/Admit/Transfer - Discharge - Discharge Plan Condition: Stable Disposition: HOME Patient Education Materials: Nosebleed (ED) Referrals: Saud Cornell MD [Medical Doctor] - 1 Day (in 1-2 days.) Grecia Anderson MD [Primary Care Provider] - Additional Instructions: Take Augmentin 875 mg twice a day and Ultram as needed for the pain. Please follow up with ENT, Dr. Cornell, in 1-2 days. RETURN TO EMERGENCY DEPARTMENT FOR ANY NEW OR WORSENING SYMPTOMS. The documentation as recorded by the Lloyd hall Angela accurately reflects the service I personally performed and the decisions made by , Juan Luis Barajas MD.
[2018-05-04 01:23] VITALS: BP 121/77
== END 2018-05-04 01:18 | disposition home or self-care (01) ==
LOC: ED 22:21
DX: R04.0 Epistaxis (principal); F41.8 Other specified anxiety disorders; Z87.891 Personal history of nicotine dependence; Z79.01 Long term (current) use of anticoagulants; I25.10 Atherosclerotic heart disease of native coronary artery without angina pectoris; E78.00 Pure hypercholesterolemia, unspecified; I10 Essential (primary) hypertension
CPT/HCPCS: 30901; 99283; A9270-GY

== ENCOUNTER 2018-05-09 06:27 | Day surgery (SDC) | payer MEDICARE, OTHER ==
[~2018-05-09 06:27] MED LIST: Buffered Lidocaine 0.9% SYRIN* 5 ML/SYR SYRINGE INTRADERM ONE; Dexamethasone TAB* 6 MG PO ONE; DiMENhydriNATE IV* 50 MG/ML VIAL IV PUSH PRN; Famotidine IV* 10 MG/ML 2 ML (20 mg) IV ONE; Morphine INJ* 2 MG/ML 1 ML CARPUJECT IV PRN; Naloxone* 0.4 MG/ML 1 ML VIAL IV PRN; Ondansetron INJ* 2 MG/ML VIAL ONE; PROCHLORPERAZINE INJ 5 MG/ML 2 ML VIAL IV PRN; fentaNYL* 50 MCG/ML 2 ML VIAL (100 MCG VIAL) IV PRN; oxyCODONE/Acetamin 5/325 MG* TAB PO PRN
[2018-05-09] MEDS ORDERED: Famotidine IV* 10 MG/ML 2 ML (20 mg) ONE (06:54)
[2018-05-09] MEDS ORDERED: Ondansetron ODT TAB* 4 MG ONE (06:54)
[2018-05-09] MEDS ORDERED: Buffered Lidocaine 0.9% SYRIN* 5 ML/SYR SYRINGE ONE (06:54)
[2018-05-09] MEDS ORDERED: Dexamethasone TAB* 4 MG ONE (06:54)
[2018-05-09] MEDS ORDERED: Dexamethasone IV* 4 MG/ML 1 ML (4 MG) ONE (07:07)
[2018-05-09] MEDS ORDERED: Lidocain 1% EPI 1:100,000 * 30 ML MDV ONE (07:53)
[2018-05-09] MEDS ORDERED: KETAMINE HCL* 50 MG/ML 10 ML VIAL ONE (08:00)
[2018-05-09] MEDS ORDERED: Midazolam* 1 MG/ML 5 ML VIAL (5 MG) ONE (08:00)
[2018-05-09] MEDS ORDERED: fentaNYL* 50 MCG/ML 2 ML VIAL (100 MCG VIAL) ONE (08:00)
[2018-05-09] MEDS ORDERED: Lidocaine 4% TOPICAL* 50 ML TOP.SOLN ONE (08:19)
[2018-05-09] MEDS ORDERED: Oxymetazoline 0.05% NASAL SPR* 15 ML BTL ONE (08:19)
[2018-05-09] MEDS ORDERED: Bacitracin OINTMENT* 0.5% 0.5 oz TUBE ONE (09:00)
[2018-05-09 11:25] VITALS: BP 168/82
--- NOTE | 2018-05-09 13:15 | OP ---
DATE OF OPERATION: 05/09/18 [facility] DATE OF : 37 ATTENDING SURGEON: Saud Cornell MD SEISMIC SURVEY ASSISTANT: None. ANESTHESIOLOGIST: Dr. Salinas. ANESTHESIA: Local with monitored anesthesia care. PRE-OP DIAGNOSIS: Epistaxis. POST-OP DIAGNOSIS: Epistaxis. OPERATIVE PROCEDURE: Endoscopic control of epistaxis. ESTIMATED BLOOD LOSS: Negligible. FINDINGS: Probable source of epistaxis at the posterior insertion of the left middle turbinate. 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 She also has multiple septal perforations with septal buttons present, which have occasionally been a source of bleeding as well. She presented to the office yesterday for removal of bilateral balloon packs which had been placed 5 days previously in the emergency room. She is on Plavix because of a recently revascularized right carotid system. She had very little breakthrough bleeding with the packs in place. I did remove them in the office without any significant bleeding. Given the patient's history; however, the fact that she was anticoagulated and the fact that she typically has recurring episodes of epistaxis unless cauterized, the decision was made to bring the patient to the operating room. DESCRIPTION OF PROCEDURE: On 05/09/18, the patient was brought to the operating room. Sedation was given through monitored anesthetic care by Dr. Salinas. Both nasal cavities were packed with cottonoid pledgets containing Afrin and 4% lidocaine. Once adequate time was allotted for vasoconstriction, the procedure was begun. Both nasal cavities were explored with the 0 degree rigid endoscope. There was some clot present bilaterally, which was suctioned free. 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 One of the patient's septal buttons had become dislodged and was in the right nasal cavity. This was reduced and placed back into position. Based on the patient's prior history and her reporting of this most recent bleed, it seems as if the primary bleeding was coming from the left nasal cavity. This was extensively explored. Some areas of granulation on the septum were cauterized with the endoscopic bipolar cautery at a setting of 15. More posteriorly, the patient has a telangiectasia at the root of the left middle turbinate. This was visualized and although it did not seem to be ulcerated or likely to have been the source, I did cauterize this. The middle turbinate was then gently medialized and the ethmoid cavity was inspected. The patient has often had a secondary source of bleeding at the posterior insertion of the left middle turbinate. This did appear to be a likely source. There was clot filling the middle meatus. When removed, there was some pulsatile bleeding from this area. It was readily controlled with the endoscopic bipolar forceps at a setting of 20. The middle meatus was then packed with Surgicel. Bacitracin ointment was applied to both nostrils. The patient was then returned to the care of the anesthesiologist, allowed to arise from anesthesia, and delivered to the PACU in stable condition. [id number]/CPS #: [id number] MTDD
[2018-05-09] MEDS ORDERED: Flumazenil* 0.1 MG/ML 5 ML MDV ONE (13:33)
== END 2018-05-09 15:59 | disposition home or self-care (01) ==
LOC: OR 06:27
PROVIDERS: ATTEND Otolaryngology
DX: R04.0 Epistaxis (principal); I10 Essential (primary) hypertension; I25.2 Old myocardial infarction; I25.10 Atherosclerotic heart disease of native coronary artery without angina pectoris; Z87.891 Personal history of nicotine dependence; D64.9 Anemia, unspecified; I08.0 Rheumatic disorders of both mitral and aortic valves; R94.31 Abnormal electrocardiogram [ECG] [EKG]
CPT/HCPCS: 93005; A9270-GY; J1100; J2250; J3010; J8540

== ENCOUNTER 2018-07-06 15:21 | Inpatient (IN) | payer MEDICARE, OTHER ==
--- OUTSIDE RECORDS SUMMARY | 2018-07-06 15:31 | XMS REPORT ---
:1935 External Reference #:[id number] Author Organization [facility] Address [address] [place] [address] Phone [phone] Care Team Providers Name Role Phone Grecia Anderson M.D. Primary Care Physician Unavailable Payers Type Date Identification Numbers Payment Provider Subscriber Medicare Primary Policy Number: [id number] Medicare-Counts Include [facility] Gov[employer] Dawit Dotson PayID: [id number] [address] [facility] [place] [address] Medigap Part B Policy Number: [id number] [employer] Sirisha Dotson Group Number: [id number] [id number] Group Name: [id number] [place] [address] PayID: [id number] Problems Date Description Provider Status Onset: 11/03/2008 Essential hypertension Active Onset: 05/04/2018 Bleeding from nose Nabil Simmons MD Active Onset: 11/02/2015 Bleeding from nose Nabil Simmons MD Active Family History Date Family Member(s) Problem(s) Comments General Hearing Loss General Heart Attack General Heart Disease Social History Type Date Description Comments Occupation Retired Cigarette Use Former Cigarette Smoker Packs Daily 2 for 45 years Cigarette Use quit at age 62 Cigars Never Smoked Cigars Pipe Never Smoked A Pipe Smokeless Tobacco Never Used Smokeless Tobacco ETOH Use Currently consumes 1 glass of wine per day Smoking Patient is a former smoker Allergies, Adverse Reactions, Alerts Date Description Reaction Status Severity Comments 11/05/2008 Nuts active 11/05/2008 Aspirin active 11/05/2008 Codeine active 11/05/2008 Ibuprofen active 11/05/2008 Cephalexin active Medications Medication Date Status Form Strength Qnty SIG Indications Ordering Provider Atrovent 10/29/ Active Solution 0.06% 1units 2 sprays in [place] 2014 each delores Ponce MD twice a day as needed Tramadol HCL / Active Tablets 50mg 1-2 tabs Bael, 0000 every 4-6 Juan hours as MD needed pain Acidophilus / Active Capsules as directed Areli, 0000 Prieto VELASCO Clonazepam / Active Tablets 0.5mg 1 by mouth Areli, 0000 three times Prieto VELASCO a day Potassium / Active Capsules 10Meq 1 by mouth Areli, Chloride ER 0000 ER twice a day Prieto VELASCO Magnesium / Active Capsules 400mg twice daily Areli, Oxide 0000 Prieto VELASCO Amiodarone HCL / Active Tablets 200mg 1 by mouth Areli, 0000 every day Prieto VELASCO Vitamin B-12 / Active Tablets 1000mcg as directed Areli 0000 Sub Prieto VELASCO Atorvastatin / Active Tablets 40mg 1 by mouth Areli, Calcium 0000 every day Prieto VELASCO Gabapentin / Active Capsules 300mg 1 cap by Areli, 0000 mouth three Prieto VELASCO times a day Lexapro / Active Tablets 5mg 1 by mouth Justin, 0000 every day Grecia Nur Tylenol / Active Tablets 325mg as needed Unknown 0000 for pain Melatonin ER / Active Tablets ER 5mg as needed Unknown 0000 Escitalopram / Active Tablets 10mg Unknown Oxalate 0000 Clopidogrel / Active Tablets 75mg Unknown Bisulfate 0000 Prednisone / Active Tablets 20mg daily Unknown 0000 Mupirocin 03/26/ Hx Ointment 2% 15gm apply to On License [facility] 2014 - both Nestor Cornell, 06/03/ nostril 2014 twice a day Bactroban 10/17/ Hx Ointment 2% 15gm apply to [facility] 2012 - both Nestor Cornell, 06/03/ nostrtimothy VELASCO 2014 twice daily for 1 month Augmentin 12/08/ Hx Tablets 875-125mg 28tabs 1 po bid 461.0 Yvon Vizcarra 2011 - Strominge 02/14/ Boom rodriguez 2011 Biaxin XL 12/08/ Hx Tablets ER 500mg 28tabs 2 po 461.0 Yvon Vizcarra 2012 - 24HR [id number] Strominge 02/14/ for 14 days Boom rodriguez 2011 Ofloxacin 07/15/ Hx Solution 0.3% 1bottl 4 drops in [place] 2009 - e right ear E. Kraig, 03/24/ twice daily 2010 for 7 days Bacitracin 05/28/ Hx 1Tube apply to 784.7 Yvon Vizcarra [place] 2009 - rim of nose Strominge 02/14/ both sides Boom rodriguez 2011 in the am and the pm. Zithromax 01/13/ Hx Tablets 250mg 1Pack take as 473.2 Saud Z-Piero 2010 - directed Nestor Cornell, 03/24/ 2010 Lortab 7.5 01/08/ Hx Tablets 7.5-500mg 30tabs 1 po every 784.7 Yvon Vizcarra 2009 - 4-6 hours Strominge 02/14/ prn pain Boom rodriguez 2011 Vitamin D [place] Gleason - Nestor Cornell, 12/05/ 2013 Will Bring A [place] List Of Meds 2008 - Nestor Cornell, With Her 2007 Atenolol 00/00/ Hx Unknown 2009 Enalapril 00/00/ Hx Unknown Maleate 2009 Singulair 00/00/ Hx Unknown 2009 Clonazepam 00/00/ Hx Unknown 2009 Zocor /00/ Hx Unknown 2009 Lexapro /00/ Hx Unknown 2009 Tylenol 00/00/ Hx Unknown 2009 Clonazepam 00/00/ Hx Unknown 2014 Atenolol 00/00/ Hx Unknown 2013 Simvastatin 00/00/ Hx Unknown 2014 Singulair 00/00/ Hx Unknown 2011 Citalopram 00/00/ Hx Unknown Hydrobromide 2011 Cozaar 00/00/ Hx Unknown 2011 Acidophilus /00/ Hx Unknown 2014 Tylenol 00/00/ Hx Unknown 2014 Budesonide 00/00/ Hx Unknown 0000 - Micronized 2011 Amlodipine // Hx Tablets 5mg Unknown 2014 Sertraline HCL 00/00/ Hx Unknown 2012 Hydrocodone 00/00/ Hx Unknown Bitartrate 0000 - 2014 Escitalopram 00/ Hx Unknown Oxalate - 2014 Pantoprazole /00/ Hx Unknown Sodium 0000 - 2013 Loperamide HCL /00/ Hx Unknown 0000 - 2013 Oxybutynin 00/ Hx Unknown Chloride ER 0000 - 2013 Bactroban / Hx Ointment 2% apply Unknown 0000 - intranasal 08/17/ twice a day 2016 Hydrocodone 00/00/ Hx Tablets 5-300mg 1-2 by Areli Bitartrate/Kwasi 0000 - mouth every Prieto VELASCO taminophen as needed 2014 Clopidogrel 00/ Hx Tablets 75mg 1 by mouth Areli, Bisulfate 0000 - every day Prieto VELASCO 2016 Poly-Iron 150 / Hx Capsules 150mg As directed Areli 0000 - Prieto VELASCO 2016 Aspirin Adult / Hx Tablets DR 81mg 1 by mouth Areli, Low Dose 0000 - daily Prieto VELASCO 2016 Metoprolol 00/ Hx Tablets 25mg 1/2 tab by Areli, Tartrate 0000 - mouth daily Prieto VELASCO 2016 Pantoprazole 00/ Hx Tablets DR 40mg 1 by mouth Areli, Sodium 0000 - every day Prieto VELASCO 2016 Premarin 00/ Hx Tablets 0.3mg 1 by mouth Areli, 0000 - every day Prieto VELASCO 2016 Estrogen / Hx as directed Lauren 0000 Geneva Martinez 08/17[place] VELASCO 2016 Amoxicillin/Cl 00/ Hx Tablets 875-125mg take 1 Unknown avulanate 0000 - tablet by Potassium 05/25/ mouth twice 2018 a day for 7 days Immunizations CPT Code Status Date Vaccine Lot # [id number] Given 08/11/2014 Influenza Virus Vaccine, 3 Years Of Age And Above, Intramuscular 55853 Given Unknown Pneumococcal Vaccine 2Yrs Or Older [id number] Ordered 09/03/2015 Influenza Virus Vaccine, 3 Years Of Age And Above, Intramuscular Vital Signs Date Vital Result Comment 06/29/2018 Weight 114.00 lb Weight in kg's 51.710 Height 60.75 inches 5'0.75" Height in cm's 154.3 cm BMI (Body Mass Index) 21.7 kg/m2 05/29/2018 Weight 122.00 lb Weight in kg's 55.339 Height 60.75 inches 5'0.75" Height in cm's 154.3 cm BMI (Body Mass Index) 23.2 kg/m2 05/25/2018 Weight 122.00 lb Weight in kg's 55.339 Height 60.75 inches 5'0.75" Height in cm's 154.3 cm BMI (Body Mass Index) 23.2 kg/m2 05/08/2018 Weight 122.00 lb Weight in kg's 55.339 Height 60.75 inches 5'0.75" Height in cm's 154.3 cm BMI (Body Mass Index) 23.2 kg/m2 08/17/2017 BP Systolic 97 mmHg BP Diastolic 64 mmHg Heart Rate 66 /min Respiratory Rate 17 /min Weight 122.00 lb Weight in kg's 55.339 Height 60.75 inches 5'0.75" Height in cm's 154.3 cm BMI (Body Mass Index) 23.2 kg/m2 06/24/2016 BP Systolic 93 mmHg BP Diastolic 51 mmHg Heart Rate 74 /min Respiratory Rate 17 /min Weight 118.00 lb Weight in kg's 53.525 Height 60.75 inches 5'0.75" Height in cm's 154.3 cm BMI (Body Mass Index) 22.5 kg/m2 04/29/2016 BP Systolic 87 mmHg BP Diastolic 55 mmHg Heart Rate 77 /min Respiratory Rate 17 /min Weight 118.00 lb Weight in kg's 53.525 Height 60.75 inches 5'0.75" Height in cm's 154.3 cm BMI (Body Mass Index) 22.5 kg/m2 04/07/2016 BP Systolic 87 mmHg BP Diastolic 52 mmHg Heart Rate 81 /min Respiratory Rate 17 /min Weight 118.00 lb Weight in kg's 53.525 Height 60.75 inches 5'0.75" Height in cm's 154.3 cm BMI (Body Mass Index) 22.5 kg/m2 11/02/2015 BP Systolic 85 mmHg BP Diastolic 61 mmHg Heart Rate 67 /min Respiratory Rate 16 /min Weight 118.00 lb Weight in kg's 53.525 Height 60.75 inches 5'0.75" Height in cm's 154.3 cm BMI (Body Mass Index) 22.5 kg/m2 09/03/2015 BP Systolic 74 mmHg BP Diastolic 50 mmHg Heart Rate 68 /min Respiratory Rate 17 /min Weight 118.00 lb Weight in kg's 53.525 Height 60.75 inches 5'0.75" Height in cm's 154.3 cm BMI (Body Mass Index) 22.5 kg/m2 08/27/2014 BP Systolic 98 mmHg BP Diastolic 71 mmHg Heart Rate 108 /min Respiratory Rate 17 /min Weight 126.00 lb Weight in kg's 57.154 Height 60.75 inches 5'0.75" Height in cm's 154.3 cm BMI (Body Mass Index) 24.0 kg/m2 12/05/2013 BP Systolic 113 mmHg BP Diastolic 70 mmHg Heart Rate 72 /min Respiratory Rate 16 /min Weight 126.00 lb Weight in kg's 57.154 Height 60.75 inches 5'0.75" Height in cm's 154.3 cm BMI (Body Mass Index) 24.0 kg/m2 10/17/2013 BP Systolic 100 mmHg BP Diastolic 61 mmHg Heart Rate 66 /min Respiratory Rate 17 /min Weight 126.00 lb Weight in kg's 57.154 Height 60.75 inches 5'0.75" Height in cm's 154.3 cm BMI (Body Mass Index) 24.0 kg/m2 02/15/2012 BP Systolic 103 mmHg BP Diastolic 84 mmHg Heart Rate 86 /min Respiratory Rate 16 /min Weight 148.00 lb Weight in kg's 67.133 Height 60.75 inches 5'0.75" Height in cm's 154.3 cm BMI (Body Mass Index) 28.2 kg/m2 09/15/2011 BP Systolic 158 mmHg BP Diastolic 75 mmHg Heart Rate 69 /min Respiratory Rate 16 /min Weight 148.00 lb Weight in kg's 67.133 Height 60.75 inches 5'0.75" Height in cm's 154.3 cm BMI (Body Mass Index) 28.2 kg/m2 06/02/2010 BP Systolic 120 mmHg BP Diastolic 73 mmHg Heart Rate 64 /min Respiratory Rate 16 /min 05/28/2010 BP Systolic 147 mmHg BP Diastolic 90 mmHg Heart Rate 64 /min Respiratory Rate 16 /min 11/05/2008 BP Systolic 153 mmHg BP Diastolic 59 mmHg Heart Rate 65 /min Respiratory Rate 16 /min Results Test Date Test Result H/L Range Note Comp Metabolic Panel 05/29/2018 Sodium 141 mmol/L 135-145 Potassium 4.9 mmol/L 3.5-5.0 Chloride 103 mmol/L 101-111 Co2 Carbon Dioxide 31 mmol/L 22-32 Anion Gap 7 mmol/L 2-11 Glucose 100 mg/dL 70-100 Blood Urea Nitrogen 22 mg/dL 6-24 Creatinine 1.52 mg/dL High 0.51-0.95 BUN/Creatinine Ratio 14.5 8-20 Calcium 9.2 mg/dL 8.6-10.3 Total Protein 6.5 g/dL 6.4-8.9 Albumin 3.5 g/dL 3.2-5.2 Globulin 3.0 g/dL 2-4 Albumin/Globulin Ratio 1.2 1-3 Total Bilirubin 0.70 mg/dL 0.2-1.0 Alkaline Phosphatase 85 U/L 34-104 Alt 9 U/L 7-52 Ast 20 U/L 13-39 Egfr Non- 32.8 >60 Egfr 39.7 >60 1 Laboratory test finding 05/29/2018 Magnesium 1.9 mg/dL 1.9-2.7 C Reactive Protein 23.57 mg/L High <8.01 Ferritin 32.2 ng/mL 11-307 Vitamin B12 > 1450 pg/mL High 180-914 2 CBC Auto Diff 05/29/2018 White Blood Count 7.3 10^3/uL 3.5-10.8 Red Blood Count 3.57 10^6/uL Low 4.00-5.40 Hemoglobin 9.4 g/dL Low 12.0-16.0 Hematocrit 30 % Low 35-47 Mean Corpuscular Volume 85 fL 80-97 Mean Corpuscular Hemoglobin 26 pg Low 27-31 Mean Corpuscular HGB Conc 31 g/dL 31-36 Red Cell Distribution Width 18 % High 10.5-15 Platelet Count 237 10^3/uL 150-450 Mean Platelet Volume 10.5 um3 High 7.4-10.4 Abs Neutrophils 5.0 10^3/uL 1.5-7.7 Abs Lymphocytes 0.9 10^3/uL Low 1.0-4.8 Abs Monocytes 1.0 10^3/uL High 0-0.8 Abs Eosinophils 0.3 10^3/uL 0-0.6 Abs Basophils 0.1 10^3/uL 0-0.2 Abs Nucleated RBC 0 10^3/uL Granulocyte % 69.1 % 38-83 Lymphocyte % 12.4 % Low 25-47 Monocyte % 13.7 % High 0-7 Eosinophil % 3.8 % 0-6 Basophil % 1.0 % 0-2 Nucleated Red Blood Cells % 0 Laboratory test 05/29/2018 Erythrocyte Sed Rate 47 mm/Hr High 0-40 finding Laboratory test 12/08/2011 Culture 3 finding Sensitivity/Gram St - <SEE NOTE> CBC Auto Diff 10/18/2011 White Blood Count 7.8 CUMM 4.8-10.8 Red Cell Count 3.84 CUMM Low 4.2-5.4 Hemoglobin 13.3 g/dL 12.0-16.0 Hematocrit 38 % 35-47 Mean Corpuscular Volume 100 um3 High 79-97 Mean Corpuscular Hemoglob 35 pg High 27-31 Mean Corpuscular HGB Cone 35 g/dL 32-36 Redcell Distribution WDTH 15 % 10.5-15 Platelet Count 191 CUMM 150-450 Mean Platelet Volume 11.3 um3 High 7.4-10.4 Gran % 59.8 % 38-83 Lymph % 28.7 % 25-47 Mononuclear % 9.8 % High 1-9 Eosinophil % 1.2 % 0-6 Basophil % 0.5 % 0-2 Abs Lymphs 2.2 1.0-4.8 Abs Mononuclear 0.8 0-0.8 Absolute Neutrophil Count 4.7 1.5-7.7 Abs Eosinophils 0.1 0-0.6 Abs Basophils 0 0-0.2 Comp Metabolic Panel 10/18/2011 Sodium 141 mmol/L 135-145 Potassium 4.2 mmol/L 3.5-5.0 Chloride 106 mmol/L 101-111 Co2 (Carbon Dioxide) 25.0 mmol/L 22-32 Anion Gap 10.0 mmol/L 2-11 4 Glucose 94 mg/dL 70-100 BUN 23 mg/dL 6-24 Creatinine 1.5 mg/dL High 0.50-1.40 One Over Creatinine 0.66 BUN/Creatinine Ratio 15.3 8-20 Calcium 8.9 mg/dL 8.1-9.9 Total Protein 6.7 GM/DL 6.2-8.1 Albumin 3.5 GM/DL 3.2-5.2 Globulin 3.2 GM/DL 2-4 Albumin/Globulin Ratio 1.1 1-3 Bilirubin Total 0.9 mg/dL 0.4-1.5 5 Alkaline Phosphatase 72 U/L 30-110 Alt (SGPT) 24 U/L 14-54 Ast (Sgot) 33 U/L 12-42 eGFR Non- 33.9 > 60 eGFR 43.5 > 60 6 Lipid Profile (Trig/Chol/HDL) 10/18/2011 Triglyceride 99 mg/dL 40-200 Cholesterol 180 mg/dL Less Than 200 7 High Density Lipoprotein 77 mg/dL High 40-60 8 Cholesterol/HDL Ratio 2.34 AVERAGE 1-4.44 Low Density Lipoprotein 83 mg/dL Less Than 100 9 Laboratory test finding 10/18/2011 CPK (Creatine Kinase) 72 U/L 0-170 CBC No Diff 10/05/2011 White Blood Count 9.2 CUMM 4.8-10.8 Red Cell Count 3.90 CUMM Low 4.2-5.4 Hemoglobin 13.5 g/dL 12.0-16.0 Hematocrit 39 % 35-47 Mean Corpuscular Volume 100 um3 High 79-97 Mean Corpuscular Hemoglob 35 pg High 27-31 Mean Corpuscular HGB Cone 34 g/dL 32-36 Redcell Distribution WDTH 14 % 10.5-15 Platelet Count 168 CUMM 150-450 Mean Platelet Volume 11.6 um3 High 7.4-10.4 Basic Metabolic Panel 10/05/2011 Sodium 139 mmol/L 135-145 Potassium 4.1 mmol/L 3.5-5.0 Chloride 104 mmol/L 101-111 Co2 (Carbon Dioxide) 27.0 mmol/L 22-32 Anion Gap 8.0 mmol/L 2-11 10 Glucose 110 mg/dL High 70-100 BUN 23 mg/dL 6-24 Creatinine 1.4 mg/dL 0.50-1.40 One Over Creatinine 0.71 BUN/Creatinine Ratio 16.4 8-20 Calcium 9.7 mg/dL 8.1-9.9 eGFR Non- 36.7 > 60 eGFR 47.1 > 60 11 Basic Metabolic Panel 04/26/2011 Sodium 137 mmol/L 135-145 Potassium 5.5 mmol/L High 3.5-5.0 Chloride 104 mmol/L 101-111 Co2 (Carbon Dioxide) 26.0 mmol/L 22-32 Anion Gap 7.0 mmol/L 2-11 12 Glucose 96 mg/dL 70-100 BUN 38 mg/dL High 6-24 Creatinine 1.80 mg/dL High 0.50-1.40 One Over Creatinine 0.50 BUN/Creatinine Ratio 21.1 High 8-20 Calcium 9.5 mg/dL 8.1-9.9 eGFR Non- 27.5 > 60 eGFR 35.4 > 60 13 CBC Auto Diff 04/26/2011 White Blood Count 10.8 CUMM 4.8-10.8 Red Cell Count 3.69 CUMM Low 4.2-5.4 Hemoglobin 12.3 g/dL 12.0-16.0 Hematocrit 37 % 35-47 Mean Corpuscular Volume 101 um3 High 79-97 Mean Corpuscular Hemoglob 33 pg High 27-31 Mean Corpuscular HGB Cone 33 g/dL 32-36 Redcell Distribution WDTH 14 % 10.5-15 Platelet Count 181 CUMM 150-450 Mean Platelet Volume 11.4 um3 High 7.4-10.4 14 Manual Differential 04/26/2011 Polysegmented Neutrophil 74 % 38-83 Lymphocyte 18 % Low 25-47 Monocyte 5 % 0-13 Eosinophil 2 % 0-6 Basophil 1 % 0-2 Absolute Neutrophil Count 7.9 Macrocytosis SLIGHT Neutrophil Cytoplasmic AB 03/24/2011 C-Anca NEGATIVE P-Anca Final RPT NEGATIVE Anca Reviewed By (SEE NOTE) Negative 15 Laboratory test finding 03/24/2011 Erythrocyte Sed Rate 34 MM/HR 0-40 CBC With Manual Diff 03/24/2011 White Blood Count 8.4 CUMM 4.8-10.8 Red Cell Count 3.76 CUMM Low 4.2-5.4 Hemoglobin 12.5 g/dL 12.0-16.0 Hematocrit 37 % 35-47 Mean Corpuscular Volume 99 um3 High 79-97 Mean Corpuscular Hemoglob 33 pg High 27-31 Mean Corpuscular HGB Cone 33 g/dL 32-36 Redcell Distribution WDTH 14 % 10.5-15 Platelet Count 169 CUMM 150-450 Mean Platelet Volume 11.6 um3 High 7.4-10.4 Polysegmented Neutrophil 70 % 38-83 Lymphocyte 25 % 25-47 Monocyte 4 % 0-13 Eosinophil 1 % 0-6 Absolute Neutrophil Count 5.8 Anisocytosis SLIGHT Laboratory test finding 03/24/2011 C Reactive Protein < 0.5 mg/dL Less Than 0.5 Comp Metabolic Panel 03/24/2011 Sodium 142 mmol/L 135-145 Potassium 5.2 mmol/L High 3.5-5.0 Chloride 109 mmol/L 101-111 Co2 (Carbon Dioxide) 27.0 mmol/L 22-32 Anion Gap 6.0 mmol/L 2-11 16 Glucose 103 mg/dL High 70-100 BUN 39 mg/dL High 6-24 Creatinine 1.70 mg/dL High 0.50-1.40 One Over Creatinine 0.50 BUN/Creatinine Ratio 22.9 High 8-20 Calcium 9.4 mg/dL 8.1-9.9 Total Protein 6.7 GM/DL 6.2-8.1 Albumin 4.0 GM/DL 3.2-5.2 Globulin 2.7 GM/DL 2-4 Albumin/Globulin Ratio 1.5 1-3 Bilirubin Total 1.2 mg/dL 0.4-1.5 17 Alkaline Phosphatase 74 U/L 30-110 Alt (SGPT) 34 U/L 14-54 Ast (Sgot) 40 U/L 12-42 eGFR Non- 29.4 > 60 eGFR 37.8 > 60 18 Comp Metabolic Panel 02/08/2011 Sodium 136 mmol/L 135-145 Potassium 5.6 mmol/L High 3.5-5.0 Chloride 106 mmol/L 101-111 Co2 (Carbon Dioxide) 24.0 mmol/L 22-32 Anion Gap 6.0 mmol/L 2-11 19 Glucose 100 mg/dL 70-100 BUN 42 mg/dL High 6-24 Creatinine 1.60 mg/dL High 0.50-1.40 One Over Creatinine 0.60 BUN/Creatinine Ratio 26.3 High 8-20 Calcium 9.4 mg/dL 8.1-9.9 Total Protein 7.3 GM/DL 6.2-8.1 Albumin 4.1 GM/DL 3.2-5.2 Globulin 3.2 GM/DL 2-4 Albumin/Globulin Ratio 1.3 1-3 Bilirubin Total 1.1 mg/dL 0.4-1.5 20 Alkaline Phosphatase 85 U/L 30-110 Alt (SGPT) 55 U/L High 14-54 Ast (Sgot) 59 U/L High 12-42 eGFR Non- 31.5 > 60 eGFR 40.5 > 60 21 Laboratory test finding 02/08/2011 C Reactive Protein 0.6 mg/dL High Less Than 0.5 Urinalysis W/Microscopic 02/08/2011 Ua Color YELLOW Yellow Appearance-Urine CLEAR Clear Specific Baker-Ur 1.016 1.010-1.030 Esterase-Urine 1+ Negative Nitrite NEGATIVE Negative [id number] NEGATIVE Negative Protein-Urine NEGATIVE Negative PH-Urine 5.5 5-9 Blood-Urine NEGATIVE Negative Ketones-Urine NEGATIVE Negative Bilirubin-Ur NEGATIVE Negative Glucose-Urine NEGATIVE Negative WBC-Urine 0-2 0-5 RBC-Urine NONE SEEN 0-2 Mucus Urine SMALL None Epith Cells-Ur FEW None Bacteria-Urine TRACE None CBC No Diff 02/08/2011 White Blood Count 10.1 CUMM 4.8-10.8 Red Cell Count 3.93 CUMM Low 4.2-5.4 Hemoglobin 12.8 g/dL 12.0-16.0 Hematocrit 39 % 35-47 Mean Corpuscular Volume 98 um3 High 79-97 Mean Corpuscular Hemoglob 33 pg High 27-31 Mean Corpuscular HGB Cone 33 g/dL 32-36 Redcell Distribution WDTH 14 % 10.5-15 Platelet Count 160 CUMM 150-450 Mean Platelet Volume 11.1 um3 High 7.4-10.4 Laboratory test finding 02/08/2011 Erythrocyte Sed Rate 23 MM/HR 0-40 Urine Culture & Sensitivi 02/08/2011 Urine Culture Sensitivi NG 22 Neutrophil Cytoplasmic AB 02/08/2011 C-Anca NEGATIVE P-Anca Final RPT NEGATIVE Anca Reviewed By (SEE NOTE) Negative 23 Vitamin D, 25 Hydroxy 12/24/2010 25-Hydroxy Vitamin D2 <4.0 ng/mL () 25-Hydroxy Vitamin D3 50 ng/mL () 25-Hydroxy Vitamin D Total 50 ng/mL () 24 Laboratory test finding 12/24/2010 Ferritin 113 NG/ML 11.0-307 Lipid Profile (Trig/Chol/HDL) 12/24/2010 Triglyceride 200 mg/dL 40-200 Cholesterol 210 mg/dL High Less Than 200 25 High Density Lipoprotein 61 mg/dL High 40-60 26 Cholesterol/HDL Ratio 3.44 AVERAGE 1-4.44 Low Density Lipoprotein 109 mg/dL High Less Than 100 27 Comp Metabolic Panel 12/24/2010 Sodium 138 mmol/L 135-145 Potassium 5.1 mmol/L High 3.5-5.0 Chloride 105 mmol/L 101-111 Co2 (Carbon Dioxide) 25.0 mmol/L 22-32 Anion Gap 8.0 mmol/L 2-11 28 Glucose 108 mg/dL High 70-100 BUN 32 mg/dL High 6-24 Creatinine 1.40 mg/dL 0.50-1.40 One Over Creatinine 0.70 BUN/Creatinine Ratio 22.9 High 8-20 Calcium 9.5 mg/dL 8.1-9.9 Total Protein 7.1 GM/DL 6.2-8.1 Albumin 4.3 GM/DL 3.2-5.2 Globulin 2.8 GM/DL 2-4 Albumin/Globulin Ratio 1.5 1-3 Bilirubin Total 1.0 mg/dL 0.4-1.5 29 Alkaline Phosphatase 79 U/L 30-110 Alt (SGPT) 24 U/L 14-54 Ast (Sgot) 37 U/L 12-42 eGFR Non- 39.1 > 60 eGFR 47.3 > 60 30 CBC With Electronic Diff 12/24/2010 White Blood Count 6.1 CUMM 4.8-10.8 Red Cell Count 4.02 CUMM Low 4.2-5.4 Hemoglobin 13.1 g/dL 12.0-16.0 Hematocrit 40 % 35-47 Mean Corpuscular Volume 98 um3 High 79-97 Mean Corpuscular Hemoglob 33 pg High 27-31 Mean Corpuscular HGB Cone 33 g/dL 32-36 Redcell Distribution WDTH 14 % 10.5-15 Platelet Count 159 CUMM 150-450 Mean Platelet Volume 11.6 um3 High 7.4-10.4 Gran % 59.0 % 38-83 Lymph % 28.6 % 25-47 Mononuclear % 10.0 % High 1-9 Eosinophil % 1.8 % 0-6 Basophil % 0.6 % 0-2 Abs Lymphs 1.8 1.0-4.8 Abs Mononuclear 0.6 0-0.8 Absolute Neutrophil Count 3.6 1.5-7.7 Abs Eosinophils 0.1 0-0.6 Abs Basophils 0 0-0.2 CBC With Electronic Diff 11/30/2010 White Blood Count 7.4 CUMM 4.8-10.8 Red Cell Count 3.89 CUMM Low 4.2-5.4 Hemoglobin 12.9 g/dL 12.0-16.0 Hematocrit 38 % 35-47 Mean Corpuscular Volume 98 um3 High 79-97 Mean Corpuscular Hemoglob 33 pg High 27-31 Mean Corpuscular HGB Cone 34 g/dL 32-36 Redcell Distribution WDTH 14 % 10.5-15 Platelet Count 149 CUMM Low 150-450 Mean Platelet Volume 10.4 um3 7.4-10.4 Gran % 57.6 % 38-83 Lymph % 30.5 % 25-47 Mononuclear % 9.9 % High 1-9 Eosinophil % 1.5 % 0-6 Basophil % 0.5 % 0-2 Abs Lymphs 2.3 1.0-4.8 Abs Mononuclear 0.7 0-0.8 Absolute Neutrophil Count 4.3 1.5-7.7 Abs Eosinophils 0.1 0-0.6 Abs Basophils 0 0-0.2 Comp Metabolic Panel 11/30/2010 Sodium 137 mmol/L 135-145 Potassium 5.0 mmol/L 3.5-5.0 Chloride 104 mmol/L 101-111 Co2 (Carbon Dioxide) 26.0 mmol/L 22-32 Anion Gap 7.0 mmol/L 2-11 31 Glucose 96 mg/dL 70-100 BUN 28 mg/dL High 6-24 Creatinine 1.50 mg/dL High 0.50-1.40 One Over Creatinine 0.60 BUN/Creatinine Ratio 18.7 8-20 Calcium 9.2 mg/dL 8.1-9.9 Total Protein 6.7 GM/DL 6.2-8.1 Albumin 4.1 GM/DL 3.2-5.2 Globulin 2.6 GM/DL 2-4 Albumin/Globulin Ratio 1.6 1-3 Bilirubin Total 1.2 mg/dL 0.4-1.5 32 Alkaline Phosphatase 73 U/L 30-110 Alt (SGPT) 20 U/L 14-54 Ast (Sgot) 30 U/L 12-42 eGFR Non- 36.1 > 60 eGFR 43.7 > 60 33 Laboratory test finding 11/30/2010 C Reactive Protein 0.7 mg/dL High Less Than 0.5 Neutrophil Cytoplasmic 11/30/2010 C-Anca POSITIVE AB C-Anca 1:40 1:40 Anca Reviewed By (SEE NOTE) Negative 34 Surgical Pathology 10/19/2010 Surgical Pathology <SEE 35 NOTE> CBC With Electronic 10/12/2010 White Blood Count 6.9 CUMM 4.8-10.8 36 Diff Red Cell Count 3.94 CUMM Low 4.2-5.4 36 Hemoglobin 12.9 g/dL 12.0-16.0 36 Hematocrit 39 % 35-47 36 Mean Corpuscular Volume 98 um3 High 79-97 36 Mean Corpuscular Hemoglob 33 pg High 27-31 36 Mean Corpuscular HGB Cone 33 g/dL 32-36 36 Redcell Distribution WDTH 14 % 10.5-15 36 Platelet Count 185 CUMM 150-450 36 Mean Platelet Volume 10.0 um3 7.4-10.4 36 Gran % 59.9 % 38-83 36 Lymph % 27.9 % 25-47 36 Mononuclear % 10.4 % High 1-9 36 Eosinophil % 1.6 % 0-6 36 Basophil % 0.2 % 0-2 36 Abs Lymphs 1.9 1.0-4.8 36 Abs Mononuclear 0.7 0-0.8 36 Absolute Neutrophil Count 4.1 1.5-7.7 36 Abs Eosinophils 0.1 0-0.6 36 Abs Basophils 0 0-0.2 36 Basic Metabolic Panel 10/12/2010 Sodium 141 mmol/L 135-145 36 Potassium 4.9 mmol/L 3.5-5.0 36 Chloride 110 mmol/L 101-111 36 Co2 (Carbon Dioxide) 25.0 mmol/L 22-32 36 Anion Gap 6.0 mmol/L 2-11 36, 37 Glucose 104 mg/dL High 70-100 36, 38 BUN 29 mg/dL High 6-24 36 Creatinine 1.50 mg/dL High 0.50-1.40 36 One Over Creatinine 0.60 36 BUN/Creatinine Ratio 19.3 8-20 36 Calcium 9.7 mg/dL 8.1-9.9 36 eGFR Non- 36.1 > 60 36 eGFR 43.7 > 60 36, 39 Laboratory test finding 09/15/2010 Anti Dna (Double Stranded NEGATIVE Negative Dna) Neutrophil Cytoplasmic AB 09/15/2010 C-Anca POSITIVE C-Anca 1:80 1:80 Anca Reviewed By (SEE NOTE) Negative 40 Ssa/SSB 09/15/2010 Ssa NEGATIVE Negative SSB NEGATIVE Negative Honey (Antinuclear Antibodies) 09/15/2010 Antinuclear AB POSITIVE Negative Honey Pattern HOMOGENEOUS Antinuclear AB 1:80 Reviewed By (SEE NOTE) 41 Laboratory test finding 09/15/2010 Hla B27 Negative () 42 Total Protein 24HR Urine 09/15/2010 Total Protein Random Urine 13 mg/dL Urine Total Protein/24HR 130 MG/24HR High 50-100 Creatinine Clearance 09/15/2010 Creatinine Random Urine 83.74 mg/dL Creat Clearance 42 mL/min Low 80-125 Hours Of Collection 24 HR 24- Urine Volume Measurement 1000 ML Laboratory test finding 09/15/2010 Erythrocyte Sed Rate 26 MM/HR 0-40 CBC With Electronic Diff 09/15/2010 White Blood Count 6.5 CUMM 4.8-10.8 Red Cell Count 3.76 CUMM Low 4.2-5.4 Hemoglobin 12.5 g/dL 12.0-16.0 Hematocrit 37 % 35-47 Mean Corpuscular Volume 97 um3 79-97 Mean Corpuscular Hemoglob 33 pg High 27-31 Mean Corpuscular HGB Cone 34 g/dL 32-36 Redcell Distribution WDTH 14 % 10.5-15 Platelet Count 187 CUMM 150-450 Mean Platelet Volume 10.0 um3 7.4-10.4 Gran % 63.3 % 38-83 Lymph % 25.1 % 25-47 Mononuclear % 9.2 % High 1-9 Eosinophil % 1.7 % 0-6 Basophil % 0.7 % 0-2 Abs Lymphs 1.6 1.0-4.8 Abs Mononuclear 0.6 0-0.8 Absolute Neutrophil Count 4.1 1.5-7.7 Abs Eosinophils 0.1 0-0.6 Abs Basophils 0 0-0.2 Laboratory test finding 09/15/2010 C Reactive Protein 0.5 mg/dL Less Than 0.5 CBC With Electronic Diff 09/07/2010 White Blood Count 7.2 CUMM 4.8-10.8 Red Cell Count 3.96 CUMM Low 4.2-5.4 Hemoglobin 13.1 g/dL 12.0-16.0 Hematocrit 39 % 35-47 Mean Corpuscular Volume 98 um3 High 79-97 Mean Corpuscular Hemoglob 33 pg High 27-31 Mean Corpuscular HGB Cone 34 g/dL 32-36 Redcell Distribution WDTH 14 % 10.5-15 Platelet Count 188 CUMM 150-450 Mean Platelet Volume 11.1 um3 High 7.4-10.4 Gran % 61.6 % 38-83 Lymph % 27.2 % 25-47 Mononuclear % 9.0 % 1-9 Eosinophil % 1.7 % 0-6 Basophil % 0.5 % 0-2 Abs Lymphs 2.0 1.0-4.8 Abs Mononuclear 0.6 0-0.8 Absolute Neutrophil Count 4.4 1.5-7.7 Abs Eosinophils 0.1 0-0.6 Abs Basophils 0 0-0.2 Comp Metabolic Panel 09/07/2010 Sodium 137 mmol/L 135-145 Potassium 5.3 mmol/L High 3.5-5.0 Chloride 105 mmol/L 101-111 Co2 (Carbon Dioxide) 22.0 mmol/L 22-32 Anion Gap 10.0 mmol/L 2-11 43 Glucose 95 mg/dL 70-100 44 BUN 39 mg/dL High 6-24 Creatinine 1.70 mg/dL High 0.50-1.40 One Over Creatinine 0.50 BUN/Creatinine Ratio 22.9 High 8-20 Calcium 9.3 mg/dL 8.1-9.9 Total Protein 7.2 GM/DL 6.2-8.1 Albumin 4.3 GM/DL 3.2-5.2 Globulin 2.9 GM/DL 2-4 Albumin/Globulin Ratio 1.5 1-3 Bilirubin Total 0.9 mg/dL 0.4-1.5 45 Alkaline Phosphatase 69 U/L 30-110 Alt (SGPT) 22 U/L 14-54 Ast (Sgot) 29 U/L 12-42 eGFR Non- 31.2 > 60 eGFR 37.8 > 60 46 Lipid Profile (Trig/Chol/HDL) 09/07/2010 Triglyceride 176 mg/dL 40-200 Cholesterol 209 mg/dL High Less Than 200 47 High Density Lipoprotein 66 mg/dL High 40-60 48 Cholesterol/HDL Ratio 3.17 AVERAGE 1-4.44 Low Density Lipoprotein 108 mg/dL High Less Than 100 49 Laboratory test finding 09/07/2010 TSH 1.53 MIU/ML 0.34-5.60 Hemoglobin A1c 5.7 % Less Than 6.0 50 Laboratory test finding 08/31/2010 Erythrocyte Sed Rate 36 MM/HR 0-40 C Reactive Protein 0.9 mg/dL High Less Than 0.5 Urinalysis W/Microscopic 08/31/2010 Ua Color YELLOW Yellow Appearance-Urine CLEAR Clear Specific Baker-Ur 1.017 1.010-1.030 Esterase-Urine 1+ Negative Nitrite NEGATIVE Negative Skbsinpxqnkg-On-MGV NEGATIVE Negative Protein-Urine NEGATIVE Negative PH-Urine 5.5 5-9 Blood-Urine NEGATIVE Negative Ketones-Urine NEGATIVE Negative Bilirubin-Ur NEGATIVE Negative Glucose-Urine NEGATIVE Negative WBC-Urine 1-3 0-5 RBC-Urine NONE SEEN 0-2 Epith Cells-Ur FEW None Urine Culture & Sensitivi 08/31/2010 Urine Culture Sensitivi NG 51 Neutrophil Cytoplasmic AB 08/12/2010 C-Anca POSITIVE C-Anca 1:20 1:20 P-Anca Final RPT NEGATIVE Anca Reviewed By (SEE NOTE) Negative 52 Laboratory test finding 07/15/2010 Angiotensin Converting Enzyme 6 U/L 8- 53 53 1 Because ethnic data is not always readily available, this report includes an eGFR for both -Americans and non- Americans. The National Kidney Disease Education Program (NKDEP) does not endorse the use of the MDRD equation for patients that are not between the ages of 18 and 70, are , have extremes of body size, muscle mass, or nutritional status, or are non- or non-. According to the National Kidney Foundation, irrespective of diagnosis, the stage of the disease is based on the level of kidney function: Stage Description GFR(mL/min/1.73 m(2)) 1 Kidney damage with normal or decreased GFR 90 2 Kidney damage with mild decrease in GFR 60-89 3 Moderate decrease in GFR 30-59 4 Severe decrease in GFR 15-29 5 Kidney failure <15 (or dialysis) 2 Normal Range 180 to 914 Indeterminate Range 145 to 180 Deficient Range <145 3 RUN DATE: 12/12/11 [facility] NMI LIVE PAGE 1 RUN TIME: 923 Specimen Inquiry RUN USER: INTERFACE Name: SIRISHA DOTSON#: [id number] Status: REG REF Re12/08/11 Age/Sex: 76/F Unit#: [id number] Location: [facility] : 36 SPEC #: [id number] SAMANTHA: 12/08/11 STATUS: ASHLEIGH REQ #: [id number] RECD: 12/09/[address]: Jessa Faustin NP SOURCE: MISC ENTR: 12/09/[address]: SPDESC: SINUS,LMAX ORDERED: CULT SENS/GS QUERIES: MEDENT REQUISITION # [id number] ACT WKST: B 12/12/11 #1 Procedure Result Verified Site > CULTURE SENSITIVITY Final 12/12/11- 0924 ML Organism 1 PSEUDOMONAS AERUGINOSA Organism 2 SADIA SPECIES QUANTITY FEW "NOT ALBICANS" 1. PSEUDOMONAS AERUGINOSA RX M.I.C. ------ --------- AMIKACIN S <=2 LEVOFLOXACIN S 0.5 CIPROFLOXACIN S <=0.25 GENTAMICIN S <=1 CEFTAZIDIME S 4 IMIPENEM S <=1 *These antibiotics are not available in the [facility] Formulary. Contact the Microbiology Department for any additional antibiotic reporting. > GRAM STAIN SMEAR Final 12/09/11- 1547 ML POLYS NONE SMEAR: MODERATE COLUMNAR EPITH FEW YEAST LIKE CELLS - [facility] State Permit #[id number] [facility] [employer] [facility] [address] DEPARTMENT OF PATHOLOGY, [facility] [employer] [place], [place] [address] [facility] Permit #[id number] Mian Luna M.D. Director David Pak M.D. Assistance Coordinator 4 Anion gap measurement may be of limited value in the presence of any alkalosis, especially in a combined acid base disorder. . 5 A metabolite of Naproxen, O-desmethylnaproxen, has been shown to interfere with the Jendrassik-Bennett method for measuring total bilirubin. Samples from patients who have taken Naproxen have shown spurious elevation in total bilirubin levels. 6 Because ethnic data is not always readily available, this report includes an eGFR for both -Americans and non- Americans. The National Kidney Disease Education Program (NKDEP) does not endorse the use of the MDRD equation for patients that are not between the ages of 18 and 70, are , have extremes of body size, muscle mass, or nutritional status, or are non- or non-. According to the National Kidney Foundation, irrespective of diagnosis, the stage of the disease is based on the level of kidney function: Stage Description GFR(mL/min/1.73 m(2)) 1 Kidney damage with normal or decreased GFR 90 2 Kidney damage with mild decrease in GFR 60-89 3 Moderate decrease in GFR 30-59 4 Severe decrease in GFR 15-29 5 Kidney failure <15 (or dialysis) 7 CHOLESTEROL INTERPRETATION: Desirable: Less than 200 MG/DL Borderline-High Risk: 200-239 MG/DL High-Risk: 240 MG/DL and over 8 HDL INTERPRETATION: Undesirable: High Risk: Less than 40 MG/DL Desirable: Low Risk: Greater than 60 MG/DL 9 LDL INTERPRETATION: Low Risk Optimal Level: LDL Less than 100 MG/DL Near or Above Optimal: LDL 100-129 MG/DL Borderline High Risk: LDL 130-159 MG/DL High Risk: LDL 160-189 MG/DL Very High Risk: LDL Greater than 189 MG/DL 10 Anion gap measurement may be of limited value in the presence of any alkalosis, especially in a combined acid base disorder. . 11 Because ethnic data is not always readily available, this report includes an eGFR for both -Americans and non- Americans. The National Kidney Disease Education Program (NKDEP) does not endorse the use of the MDRD equation for patients that are not between the ages of 18 and 70, are , have extremes of body size, muscle mass, or nutritional status, or are non- or non-. According to the National Kidney Foundation, irrespective of diagnosis, the stage of the disease is based on the level of kidney function: Stage Description GFR(mL/min/1.73 m(2)) 1 Kidney damage with normal or decreased GFR 90 2 Kidney damage with mild decrease in GFR 60-89 3 Moderate decrease in GFR 30-59 4 Severe decrease in GFR 15-29 5 Kidney failure <15 (or dialysis) 12 Anion gap measurement may be of limited value in the presence of any alkalosis, especially in a combined acid base disorder. . 13 Because ethnic data is not always readily available, this report includes an eGFR for both -Americans and non- Americans. The National Kidney Disease Education Program (NKDEP) does not endorse the use of the MDRD equation for patients that are not between the ages of 18 and 70, are , have extremes of body size, muscle mass, or nutritional status, or are non- or non-. According to the National Kidney Foundation, irrespective of diagnosis, the stage of the disease is based on the level of kidney function: Stage Description GFR(mL/min/1.73 m(2)) 1 Kidney damage with normal or decreased GFR 90 2 Kidney damage with mild decrease in GFR 60-89 3 Moderate decrease in GFR 30-59 4 Severe decrease in GFR 15-29 5 Kidney failure <15 (or dialysis) 14 Lymphopenia % 15 REVIEWED BY DAVID PAK MD 16 Anion gap measurement may be of limited value in the presence of any alkalosis, especially in a combined acid base disorder. . 17 A metabolite of Naproxen, O-desmethylnaproxen, has been shown to interfere with the Jendrassik-Bennett method for measuring total bilirubin. Samples from patients who have taken Naproxen have shown spurious elevation in total bilirubin levels. 18 Because ethnic data is not always readily available, this report includes an eGFR for both -Americans and non- Americans. The National Kidney Disease Education Program (NKDEP) does not endorse the use of the MDRD equation for patients that are not between the ages of 18 and 70, are , have extremes of body size, muscle mass, or nutritional status, or are non- or non-. According to the National Kidney Foundation, irrespective of diagnosis, the stage of the disease is based on the level of kidney function: Stage Description GFR(mL/min/1.73 m(2)) 1 Kidney damage with normal or decreased GFR 90 2 Kidney damage with mild decrease in GFR 60-89 3 Moderate decrease in GFR 30-59 4 Severe decrease in GFR 15-29 5 Kidney failure <15 (or dialysis) 19 Anion gap measurement may be of limited value in the presence of any alkalosis, especially in a combined acid base disorder. . 20 A metabolite of Naproxen, O-desmethylnaproxen, has been shown to interfere with the Jendrassik-Bennett method for measuring total bilirubin. Samples from patients who have taken Naproxen have shown spurious elevation in total bilirubin levels. 21 Because ethnic data is not always readily available, this report includes an eGFR for both -Americans and non- Americans. The National Kidney Disease Education Program (NKDEP) does not endorse the use of the MDRD equation for patients that are not between the ages of 18 and 70, are , have extremes of body size, muscle mass, or nutritional status, or are non- or non-. According to the National Kidney Foundation, irrespective of diagnosis, the stage of the disease is based on the level of kidney function: Stage Description GFR(mL/min/1.73 m(2)) 1 Kidney damage with normal or decreased GFR 90 2 Kidney damage with mild decrease in GFR 60-89 3 Moderate decrease in GFR 30-59 4 Severe decrease in GFR 15-29 5 Kidney failure <15 (or dialysis) 22 FINAL: NO GROWTH DAY 2 (<1,000 CFU/mL) 23 REVIEWED BY DAVID PAK MD 24 -- REFERENCE VALUE -- 25-HYDROXY D TOTAL (D2+D3) Optimum levels in the normal population are 25-80 Test Performed by: [facility] Dpt of Lab Med and Pathology [address] [place] [id number] Staff Engineer: Tang Ochoa III, M.D. 25 CHOLESTEROL INTERPRETATION: Desirable: Less than 200 MG/DL Borderline-High Risk: 200-239 MG/DL High-Risk: 240 MG/DL and over 26 HDL INTERPRETATION: Undesirable: High Risk: Less than 40 MG/DL Desirable: Low Risk: Greater than 60 MG/DL 27 LDL INTERPRETATION: Low Risk Optimal Level: LDL Less than 100 MG/DL Near or Above Optimal: LDL 100-129 MG/DL Borderline High Risk: LDL 130-159 MG/DL High Risk: LDL 160-189 MG/DL Very High Risk: LDL Greater than 189 MG/DL 28 Anion gap measurement may be of limited value in the presence of any alkalosis, especially in a combined acid base disorder. . 29 A metabolite of Naproxen, O-desmethylnaproxen, has been shown to interfere with the Jendrassik-Tari method for measuring total bilirubin. Samples from patients who have taken Naproxen have shown spurious elevation in total bilirubin levels. 30 Because ethnic data is not always readily available, this report includes an eGFR for both -Americans and non- Americans. The National Kidney Disease Education Program (NKDEP) does not endorse the use of the MDRD equation for patients that are not between the ages of 18 and 70, are , have extremes of body size, muscle mass, or nutritional status, or are non- or non-. According to the National Kidney Foundation, irrespective of diagnosis, the stage of the disease is based on the level of kidney function: Stage Description GFR(mL/min/1.73 m(2)) 1 Kidney damage with normal or decreased GFR 90 2 Kidney damage with mild decrease in GFR 60-89 3 Moderate decrease in GFR 30-59 4 Severe decrease in GFR 15-29 5 Kidney failure <15 (or dialysis) 31 Anion gap measurement may be of limited value in the presence of any alkalosis, especially in a combined acid base disorder. . 32 A metabolite of Naproxen, O-desmethylnaproxen, has been shown to interfere with the Jendrassik-Bennett method for measuring total bilirubin. Samples from patients who have taken Naproxen have shown spurious elevation in total bilirubin levels. 33 Because ethnic data is not always readily available, this report includes an eGFR for both -Americans and non- Americans. The National Kidney Disease Education Program (NKDEP) does not endorse the use of the MDRD equation for patients that are not between the ages of 18 and 70, are , have extremes of body size, muscle mass, or nutritional status, or are non- or non-. According to the National Kidney Foundation, irrespective of diagnosis, the stage of the disease is based on the level of kidney function: Stage Description GFR(mL/min/1.73 m(2)) 1 Kidney damage with normal or decreased GFR 90 2 Kidney damage with mild decrease in GFR 60-89 3 Moderate decrease in GFR 30-59 4 Severe decrease in GFR 15-29 5 Kidney failure <15 (or dialysis) 34 REVIEWED BY MIAN LUNA MD 35 ---- RUN DATE: 10/20/10 [facility] NMI LIVE PAGE 1 RUN TIME: 1732 Specimen Inquiry RUN USER: INTERFACE -- Name: SIRISHA DOTSON Status: [facility] Re10/19/10 Age/Sex: 75/F Unit#: [id number] Location: SDS : 36 -- Specimen: [id number] SOUT Spec Date: 10/19/10 [facility] Dr: Saud Cornell MD Spec Type: SURGICAL P Received: 10/19/10-9013 Copies to: SPECIMEN BIOPSY NASAL SEPTUM HISTORY PRE-OP DIAGNOSIS: Left sided epistaxis. GROSS DESCRIPTION The specimen is received in formalin labelled Sirisha Dotson, Biopsy Nasal Septum, and consists of two fragments of white tissue. One is minute and the other measures 0.2 x 0.2 x 0.2 cm. Submitted entirely, one cassette. DIAGNOSIS Nasal septum, lesion, biopsy: A. Squamocolumnar junction with reactive changes and underlying submucosal tissue with predominantly chronic inflammatory infiltrate and mucous glands. B. No evidence of malignancy. Signed Electronically by: DAVID PAK 10/20/10 1732 -- -- DEPARTMENT OF PATHOLOGY, [address] [place] [address] [facility] Permit #[id number] Mian Luna M.D. Director David Pak M.D. Typesetting Machine Operator/Tender tejinder -- 36 SURGERY DATE IS 10-19-10 37 Anion gap measurement may be of limited value in the presence of any alkalosis, especially in a combined acid base disorder. . 38 Note change in reference range as of 07/17/08. The change was based on recommendations from the [place] [employer]. 39 Because ethnic data is not always readily available, this report includes an eGFR for both -Americans and non- Americans. The National Kidney Disease Education Program (NKDEP) does not endorse the use of the MDRD equation for patients that are not between the ages of 18 and 70, are , have extremes of body size, muscle mass, or nutritional status, or are non- or non-. According to the National Kidney Foundation, irrespective of diagnosis, the stage of the disease is based on the level of kidney function: Stage Description GFR(mL/min/1.73 m(2)) 1 Kidney damage with normal or decreased GFR 90 2 Kidney damage with mild decrease in GFR 60-89 3 Moderate decrease in GFR 30-59 4 Severe decrease in GFR 15-29 5 Kidney failure <15 (or dialysis) 40 REVIEWED BY MIAN LUNA MD 41 REVIEWED BY MIAN LUNA MD 42 Method: Flow Cytometry Test Performed by: [facility] Dpt of Lab Med and Pathology [address] [place] [id number] Staff Engineer: Tang Ochoa III, M.D. 43 Anion gap measurement may be of limited value in the presence of any alkalosis, especially in a combined acid base disorder. . 44 Note change in reference range as of 07/17/08. The change was based on recommendations from the [place] [employer]. 45 A metabolite of Naproxen, O-desmethylnaproxen, has been shown to interfere with the Jendrassik-Bennett method for measuring total bilirubin. Samples from patients who have taken Naproxen have shown spurious elevation in total bilirubin levels. 46 Because ethnic data is not always readily available, this report includes an eGFR for both -Americans and non- Americans. The National Kidney Disease Education Program (NKDEP) does not endorse the use of the MDRD equation for patients that are not between the ages of 18 and 70, are , have extremes of body size, muscle mass, or nutritional status, or are non- or non-. According to the National Kidney Foundation, irrespective of diagnosis, the stage of the disease is based on the level of kidney function: Stage Description GFR(mL/min/1.73 m(2)) 1 Kidney damage with normal or decreased GFR 90 2 Kidney damage with mild decrease in GFR 60-89 3 Moderate decrease in GFR 30-59 4 Severe decrease in GFR 15-29 5 Kidney failure <15 (or dialysis) 47 CHOLESTEROL INTERPRETATION: Desirable: Less than 200 MG/DL Borderline-High Risk: 200-239 MG/DL High-Risk: 240 MG/DL and over 48 HDL INTERPRETATION: Undesirable: High Risk: Less than 40 MG/DL Desirable: Low Risk: Greater than 60 MG/DL 49 LDL INTERPRETATION: Low Risk Optimal Level: LDL Less than 100 MG/DL Near or Above Optimal: LDL 100-129 MG/DL Borderline High Risk: LDL 130-159 MG/DL High Risk: LDL 160-189 MG/DL Very High Risk: LDL Greater than 189 MG/DL 50 THERAPEUTIC TARGET FOR THE TREATMENT OF DIABETES MELLITUS PATIENTS IS <7% HBA1C, AND IN SELECTIVE PATIENTS <6.0%. PLEASE REFER TO [place] [employer] DIABETIC CARE GUIDELINES FOR FURTHER INFORMATION. 51 FINAL: NO GROWTH DAY 2 (<1,000 CFU/mL) 52 REVIEWED BY MIAN LUNA MD 53 The use of angiotensin converting enzyme (KWASI)-inhibiting antihypertensive drugs will cause decreased KWASI values. Test Performed by: [facility] Dpt of Lab Med and Pathology [address] [place] [id number] Staff Engineer: Tang Ochoa III, M.D. Procedures Date CPT Code Description Status 05/25/2018 39960 Control Nasal Hemorrhage (Extensive Cautery/Packing) Completed Any Method 05/09/2018 14153 Endoscopic Nasal Cautery Completed 08/17/2017 14177 Fiberoptic Laryngoscopy Completed 11/30/2016 69358 Nasal Endoscopy, Diagnostic Completed 06/24/2016 50073 Nasal Endoscopy, Diagnostic Completed 05/12/2016 19284 Tympanometry Completed 05/12/2016 52106 Comprehensive Audiogram Completed 04/26/2016 59031 Endoscopic Nasal Cautery Completed 04/07/2016 65446 Nasal Endoscopy, Diagnostic Completed 11/02/2015 36535 Contol Nasal Hemorrhage, Anterior, Simple Completed 09/03/2015 85623 Fiberoptic Laryngoscopy Completed 06/03/2015 36094 Nasal Endoscopy, Diagnostic Completed 10/17/2013 80855 Nasal Endoscopy, Diagnostic Completed 04/05/2012 36980 Nasal Endoscopy, Diagnostic Completed 10/11/2011 49883 Control Nasal Hemorrhage (Extensive Cautery/Packing) Completed Any Method 10/11/2011 71540 Insertion, Nasal Septal Button Completed 09/15/2011 55842 Nasal Endoscopy, Diagnostic Completed 10/19/2010 71759 Endoscopic Nasal Cautery Completed 10/06/2010 15010 Nasal Endoscopy, Diagnostic Completed 08/12/2010 60008 Tympanometry Completed 08/12/2010 67267 Comprehensive Audiogram Completed 07/22/2010 30912 Tympanometry Completed 07/22/2010 28704 Comprehensive Audiogram Completed 07/22/2010 91727 Removal Of Myringotomy Tube Completed 06/23/2010 20639 Tympanometry Completed 06/08/2010 09620 Endoscopic Nasal Cautery Completed 06/02/2010 30852 Nasal Endoscopy, Diagnostic Completed 05/28/2010 12076 Endoscopic Nasal Cautery Completed 02/18/2010 53123 Nasal Endoscopy, Diagnostic Completed 01/13/2010 14943 Nasal Endoscopy, Diagnostic Completed 01/05/2010 32189 Endoscopic Nasal Cautery Completed 12/21/2009 45259 Control Nasal Hemorrhage (Extensive Cautery/Packing) Completed Any Method 12/17/2009 71536 Nasal Endoscopy, Diagnostic Completed Encounters Type Date Location Provider CPT E/M Dx Office Visit 05/29/2018 8:30a [place],After 11/27/07 [place] [address] R04.0 Office Visit 05/08/2018 10:30a [place],After 11/27/07 [place] [address] R04.0 Office Visit 05/04/2018 11:45a [place],After 11/27/07 [place] [address] R04.0 Office Visit 08/17/2017 1:30p [place],After 11/27/07 [place] [address] R04.0 R13.10 Office Visit 02/09/2017 10:45a [place],After 11/27/07 [place] [address] R04.0 Office Visit 05/12/2016 11:30a [place],After 11/27/07 [place] [address] R04.0 H90.3 H92.01 Office Visit 04/29/2016 11:45a [place],After 11/27/07 [place] [address] R04.0 Office Visit 04/14/2016 10:15a [place],After 11/27/07 Saud Cornell 94319 R04.0 MD Office Visit 11/02/2015 10:45a [place],After 11/27/07 [place] [address] R04.0 Office Visit 10/29/2015 9:45a [place],After 11/27/07 Saud Cornell 44741 J30.0 MD Office Visit 08/27/2014 2:15p [place],After 11/27/07 Saud Cornell 62816 478.1-2 MD Office Visit 12/05/2013 2:45p [place],After 11/27/07 Saud Cornell, 07695 478.1-2 MD 784.7 Office Visit 10/17/2013 1:45p [place],After 11/27/07 [place] [address] 478.19 478.1-2 784.7 931 Office Visit 02/15/2012 1:45p [place],After 11/27/07 Saud Cornell 15755 478.1-2 MD Office Visit 12/08/2011 4:00p [place],After 11/27/07 [place] [address] 461.0 473.2 Office Visit 09/15/2011 2:15p [place],After 11/27/07 [place] [address] 784.7 478.1-2 Office Visit 03/24/2011 2:00p [place],After 11/27/07 [place] [address] 784.7 478.1-2 381.81 Office Visit 11/10/2010 3:45p [place],After 11/27/07 [place] [address] 784.7 478.1-2 401.9 Office Visit 10/06/2010 2:15p [place],After 11/27/07 [place] [address] 784.7 448.9 401.9 Office Visit 08/12/2010 1:45p [place],After 11/27/07 [place] [address] 401.9 389.03 389.10 478.1-2 Office Visit 07/22/2010 11:30a [place],After 11/27/07 [place] [address] 401.9 381.81 478.1-2 931 389.03 389.10 Office Visit 07/15/2010 2:15p [place],After 11/27/07 [place] [address] 381.19 381.81 478.1-2 401.9 Office Visit 06/28/2010 2:00p [place],After 11/27/07 Jessa Faustin OFFICE AUTOMATION CLERK 52134 381.19 381.81 401.9 Office Visit 06/23/2010 3:45p [place],After 11/27/07 [place] [address] 401.9 784.7 478.1-2 381.19 Office Visit 05/28/2010 10:30a [place],After 11/27/07 Jessa Faustin OFFICE AUTOMATION CLERK 17060 784.7 401.9 Office Visit 01/08/2010 2:30p [place],After 11/27/07 Jessa Faustin OFFICE AUTOMATION CLERK 24476 784.7 478.1-2 784.0 401.9 Office Visit 12/25/2009 11:45a [place],After 11/27/07 [place] [address] 784.7 401.9 Office Visit 11/05/2008 2:15p [place],After 11/27/07 [place] [address] 784.7 478.1-2 401.9 Plan of Care No Information Available
--- OUTSIDE RECORDS SUMMARY | 2018-07-06 15:33 | XMS REPORT ---
:1935 External Reference #:[id number] Author Organization [employer] Address [address] [place] [address] Phone [phone] Care Team Providers Name Role Phone Grecia Anderson MD Primary Care Physician Unavailable Payers Type Date Identification Numbers Payment Provider Subscriber Medicare Primary Effective: Policy Number: Medicare Sirisha Hernandez Matt 2001 [id number] PayID: [id number] [address] [place] [address] Medigap Part B Effective: Policy Number: [employer] Sirisha Hernandez Matt 2016 [id number] Group Number: [id number] [address] PayID: [id number] [place] [address] Problems Date Description Provider Status Onset: 01/10/2013 Irritable bowel syndrome Nayana Gong M.D. Active Onset: 01/10/2013 Decrease in height Nayana Gong M.D. Active Onset: 01/10/2013 Weight decreased Nayana Gong M.D. Active Onset: 01/10/2013 Hyperlipidemia Nayana Gong M.D. Active Onset: 01/10/2013 Essential hypertension Nayana Gong M.D. Active Onset: 01/10/2013 Malaise and fatigue Nayana Gong M.D. Active Onset: 01/10/2013 Nasal polyp Enoc Colón M.D. Active Onset: 01/10/2013 Degenerative joint disease of hand Enoc Colón M.D. Active Onset: 01/10/2013 Liver function tests abnormal Enoc Colón M.D. Active Onset: 06/14/2013 Heart murmur [place] [facility] Schedule Active Onset: 01/16/2014 Palpitations Josiah Slater M.D. Onset: 01/16/2014 Tachycardia Josiah Slater M.D. Onset: 01/16/2014 Electrocardiogram abnormal Josiah Slater M.D. Onset: 01/16/2014 Dizziness and giddiness Josiah Slater M.D. Onset: 01/16/2014 Dyspnea Josiah Slater M.D. Onset: 02/24/2014 Mitral valve disorder Josiah Slater M.D. Onset: 02/24/2014 Rheumatic disease of tricuspid Tina Pleitez Active valve Boom Family History Date Family Member(s) Problem(s) Comments General Non Contributory Father due to Accident () Mother due to Natural Causes () Children 3 daughter cancer, mets. other two childeren alive and well First Sister due to Accident () Second Sister Alive And Well Social History Type Date Description Comments Marital Status Lives With Spouse Occupation Retired Occupation [employer] Cigarette Use Quit 25 Years Ago Cigarette Use Quit 15 Years Ago Cigarette Use Quit 45 Years Ago Cigars Never Smoked Cigars Pipe Never Smoked A Pipe Smokeless Tobacco Never Used Smokeless Tobacco ETOH Use Denies alcohol use Smoking Patient is a former smoker 1996, 35 years 1 1/2-2 PPD Recreational Drug Use Denies Drug Use Daily Caffeine Comsumes on average 1 cup of decaff coffee per day Exercise Type/Frequency Does not exercise Allergies, Adverse Reactions, Alerts Date Description Reaction Status Severity Comments 06/29/2010 Aspirin active 06/29/2010 Motrin active 06/29/2010 Cephalexin active 01/03/2013 Ibuprofen H/A active 01/03/2013 Blood Thinners NOSE BLEEDS active 06/07/2018 Hydrochlorothiazide active 06/07/2018 MSG active 06/07/2018 Codeine active hydrocodone ok 06/07/2018 Augmentin active 06/29/2010 Nuts inactive Medications Medication Date Status Form Strength Qnty SIG Indications Ordering Provider Caltrate 600+D 06/07 Active Chewtabs 600-800mg 180un take one Yvon Plus Minerals /2018 -Unit its capsule/tabl Bobby, et by mouth M.D. twice daily Prednisone 06/07 Active Tablets 5mg 90tab Please take Yvon s 3 tabs daily manny Rosales M.D. Atorvastatin 03/21 Active Tablets 40mg 30tab 1 via peg Mikki Calcium s tube every [place], day [place] Clopidogrel 03/21 Active Tablets 75mg 30tab 1 via peg Qutaybeh Bisulfate s tube every S. day Boom Pleitez Gabapentin 03/21 Active Tablets 600mg 90tab take one s tablet via [place], peg tube [place] once a day Lexapro 03/21 Active Tablets 10mg 30tab 1 via peg Mikki s tube every [place], day [place] Nitrostat 03/21 Active Tablets 0.4mg 25tab one sl q5min Sub s up to 3 [place], doses as [place] needed Polyvinyl 03/21 Active Solution 1.4% 1 drop OU q 4hrs prn [place], [place] Tramadol HCL 03/21 Active Tablets 50mg 30tab give 25mg s via peg tube [place], Q 8 hrs prn [place] Compression 02/22 Active Misc 1Pair knee high Qutaybeh Stockings /2015 closed toe S. light Maghaydah compression , M.D. Compression 11/05 Active Misc 1Pair thigh high I95.89 Qutaybeh Stockings /2013 closed toe S. moderate Maghaydah compression , M.D. Oxygen Active Misc 3 l nc at Unknown /0000 bedtime or prn during day Acetaminophen Active Tablets 650mg 1 as needed Unknown /0000 Magnesium Oxide Active Capsules 400mg 1 by mouth Unknown /0000 every day Acidophilus Active Tablets 1 by mouth Unknown /0000 every day B12 Active Tablets 2000mg daily Unknown /0000 Melatonin Active Capsules 3mg 1 at bed Unknown /0000 time as needed Amiodarone HCL Active Tablets 100mg 1 by mouth Unknown /0000 every day Clonazepam Active Tablets 0.5mg 2 at bed Unknown /0000 time Albuterol 03/21 Hx Nebulizer (2.5mg/3M 75ml 1 vial via R06.02 L) 0.083% nebulizer Q [place], - 2 hrs as [place] 06/07 needed for /2017 SOB Aspirin Adult 03/21 Hx Chewtabs 81mg 90uni 1 tab via [facility] Low Strength /2017 ts peg tube qd [facility], - [place] 06/07 Lidoderm 03/21 Hx Patches 5% 90uni 1 apply to ts affected [facility], - area 12 [place] 08 hours on, hours off Omeprazole 03/21 Hx Capsules 20mg 30cap [address] lucas mustafa every [facility], - day [place] 06/07 Acetaminophen 03/21 Hx Tablets 325mg 60tab 2 tablets s peg tube [facility], - every 6 [place] / hours as needed Plavix 02/13 Hx Tablets 75mg 30tab 1 by mouth Qutaybeh /2017 s every day S. - Maghaydah 03/21 , M.D. Rivastigmine 09/14 Hx Capsules 1.5mg 120ca 2 by mouth G31.84 Promise Tartrate ps twice a day Jackie, - Pt states 1 M.D. 08/29 tab po bid /2016 for 1 wk them 1 tab po qd for 1 wk then stop Donepezil HCL 01/25 Hx Tablets 5mg 30tab 1 every day Oniel S. s (On Hold Per Ania, - DR Anderson) M.DBethany 09/13 Isosorbide 12/11 Hx Tablets ER 120mg 30tab one po qd Qutaybeh Mononitrate ER 24HR s S. - Maghaydah 12/11 , M.D. Isosorbide 12/11 Hx Tablets ER 60mg 30tab 1 by mouth Qutaybeh Mononitrate ER 24HR s every day S. - Maghaydah 02/17 , M.D. /2014 Fludrocortisone 11/05 Hx Tablets 0.1mg 60tab 1 by mouth 458.8 Qutaybeh Acetate /2013 s twice a day S. - Maghaydah 02/17 , M.D. /2014 Hyoscyamine 01/17 Hx Tablets 0.125mg 90tab 1 -2 tab po 564.1 Nayana Sulfate /2012 s every 4 Gong, - hours or M.D. 01/16 after max 12 tab in 24 hour 3ML Luer-Saleem 01/16 Hx Misc 21G X 1" 15uni im b12 Neal Syringe G 3 ML ts Pachikara X 1" - , M.D. 01/16 Cyanocobalamin 01/15 Hx Solution 1000mcg/M 30ml 1 ml L intramuscula [place] Gong once per M.D. 01/16 day then once per week for 8 weeks, then recheck b12 level Clonazepam 00 Hx Tablets 0.5mg 60tab 2 tablet po Unknown /0000 s hs - 03/21 Atenolol Hx Tablets 50mg 180ta 1 po bid Unknown / bs - 01/16 Simvastatin 00/ Hx Tablets 40mg 90tab 1 po qhs Unknown /0000 s - 01/03 Singulair Hx Tablets 10mg 30tab 1 po qd Unknown /0000 s - 01/03 Lisinopril Hx Tablets 20mg 90tab 1 po qd Unknown /0000 s - 01/03 Sertraline HCL Hx Tablets 50mg 90tab 1 po qd Unknown /0000 s - 01/03 Hydrocodone-Acet Hx Tablets 5/500mg 100ta 1-2 po qid Unknown aminophen /0000 bs prn - 01/03 Budesonide / Hx Powder Unknown /0000 - 01/03 Escitalopram Hx Tablets 20mg 30tab 1 po qd Unknown Oxalate /0000 s - 02/17 Amlodipine 00 Hx Tablets 5mg 100ta 1 po qd Unknown Besylate /0000 bs - 01/16 Pravastatin 00/ Hx Tablets 40mg 90tab 1 tablet Unknown Sodium /0000 s daily at - bedtime 12/10 Oxybutynin 00/00 Hx Tablets ER 10mg 90tab 1 po qd Unknown Chloride ER /0000 24HR s - 12/10 Pantoprazole 00/[address] 40mg 30tab 1 po qd Unknown Sodium /0000 s - 01/16 Loperamide HCL 00/00 Hx Tablets 2mg 60tab 1 tab as Unknown /0000 s needed - 01/16 Bismuth / Hx Chewtabs 262mg 56uni 1 tab po qd Unknown Subsalicylate /0000 ts - 01/16 Acidophilus 00/00 Hx Tablets 1 po qd Unknown /0000 - 12/10 Vitamin D 00/ Hx Capsules 1000Unit 30cap 1 po qd Unknown /0000 s - 01/16 Tylenol 8 Hour Hx Tablets ER 650mg 1tabs 1 by mouth Unknown Arthritis Pain /0000 po up to - three times 03/21 per day /2017 Diltiazem HCL 00 Hx Tablets 30mg 180ta 1 po qd Unknown /0000 bs - 09/30 1 00 Hx Capsules 2mg 30cap q6hr as Unknown /0000 s needed - 10/04 Magnesium Oxide Hx Capsules 400mg 100ca 1 po qd Unknown /0000 ps - 03/21 Acidophilus 00 Hx Tablets 1 tablet po Unknown Probiotic /0000 daily - 03/21 Metoprolol Hx Tablets ER 25mg 30tab 1/2 mouth Unknown Succinate ER /0000 24HR s every day - 11/10 Nitro-bid Hx Ointment 2% 15g apply small Unknown /0000 amount to - cgest wall 12/11 every hours as directed Atorvastatin Hx Tablets 40mg 90tab 1 by mouth Unknown Calcium /0000 s every day - qhs 03/21 Clopidogrel Hx Tablets 75mg 90tab 1 by mouth Unknown Bisulfate /0000 s every day - 01/17 Nitrostat 00 Hx Tablets 0.4mg 25tab one sl q5min Qutaybeh /0000 Sub s up to 3 S. - doses as Maghaydah 03/21 needed , M.D. Ferrous Sulfate 00 Hx Tablets 325(65Fe) 1 by mouth Unknown /0000 mg bid - 09/10 Aspirin Ec Hx Tablets DR 81mg 1 tablet Unknown Lo-Dose /0000 daily. - 10/27 Pantoprazole 00/[address] 40mg 1 by mouth Unknown Sodium /0000 every other - day (not 11/20 taking) Vitamin B-12 00 Hx 1000mcg 1 po qd Unknown /0000 - 10/04 Amiodarone HCL 00/00 Hx Tablets 200mg 1/2 by Unknown /0000 mouth every - day 03/21 Probiotic / Hx Capsules 1 by mouth Unknown /0000 every day - 10/04 Premarin Hx Tablets 0.3mg 1 by mouth Unknown /0000 every day - 01/17 Tramadol HCL Hx Tablets 50mg 1/2 tablet Unknown /0000 po up to - three times 03/21 /2017 Melatonin ER / Hx Tablets ER 3mg 1 tab by Unknown /0000 mouth every - day every 03/21 Gabapentin Hx Capsules 300mg 2 caps po Unknown /0000 qhs - 03/21 Senna Laxative Hx Tablets 8.6mg 2 po qd Unknown / - 02/07 Erythromycin Hx Gel 0.5% apply a thin / lyer to the - affected 11/06 areas at x 3 weeks Poly-Iron 150 Hx Capsules 150mg take one Unknown /0000 capsule by - mouth bid 02/07 ( currently taking) Escitalopram Hx Tablets 10mg 1 by mouth Unknown Oxalate /0000 every day - 03/21 Polyethylene 00/ Hx Cap 1 cap po Unknown Glycol / daily PM as - needed 03/21 Ipratropium Hx Solution 0.06% 2 sprays in Unknown [place] / each nostril - 4 times a 01/17 day needed Ferrous Sulfate Hx Tablets DR 325(65Fe) 1 by mouth Unknown /0000 mg every day - 01/17 Vitamin B12 Hx Tablets ER 1000mcg 1 by mouth Unknown /0000 every day - 03/21 Aspir-[address] 81mg 1 by mouth Unknown /0000 every day - 01/17 Poly-Iron Hx Capsules 150-25-1m 1 capsule po Unknown /0000 g-mcg-mg daily - 08/30 Omeprazole Hx Capsules 40mg 1 by mouth Unknown /0000 DR every day - for 1 month 02/28 Potassium 00/00 Hx Tablets ER 10Meq 90tab take 1 Qutaybeh Chloride ER /0000 s tablet by S. - mouth every [facility] 12/19 day , M.D. /2017 Prednisone 00 Hx Tablets 5mg Yvon /[place] Priest M.D. 06/07 Medications Administered in Office Medication Date Status Form Strength Qnty SIG Indications Ordering Provider Inj, Administered Injection Ernesto S. Regadenoson, 015 Gutierrez, DO 0.1 MG FACC Inj, Administered Injection Susy Silva, Regadenoson, 015 PA 0.1 MG Technetium TC Administered Injection Ernesto S. 99M 015 Gutierrez, DO Tetrofosmin, FACC Per Unit Dose Up To 40 Millicuries Technetium TC Administered Injection Susy Silva, 99M 015 PA Tetrofosmin, Per Unit Dose Up To 40 Millicuries Vital Signs Date Vital Result Comment 06/28/2018 Height 60.5 inches 5'0.50" Weight 114.50 lb with shoes Heart Rate 62 /min BP Systolic Sitting 80 mmHg Lue reg cuff BP Diastolic Sitting 56 mmHg Lue reg cuff BP Systolic Standing 74 mmHg Lue reg cuff BP Diastolic Standing 56 mmHg Lue reg cuff Respiratory Rate 15 /min BMI (Body Mass Index) 22.0 kg/m2 Ejection Fraction 55-60% 10/12/2017-echo 06/07/2018 Height 60.5 inches 5'0.50" Weight 112.00 lb Heart Rate 64 /min BP Systolic Sitting 78 mmHg BP Diastolic Sitting 58 mmHg Respiratory Rate 14 /min Pain Level 7 BMI (Body Mass Index) 21.5 kg/m2 02/13/2018 Height 60.5 inches 5'0.50" Weight 118.00 lb with shoes Heart Rate 68 /min BP Systolic Sitting 98 mmHg LA, reg cuff BP Diastolic Sitting 58 mmHg LA, reg cuff BMI (Body Mass Index) 22.7 kg/m2 Ejection Fraction 55%-60% echo 10/12/17 12/20/2017 Height 60.5 inches 5'0.50" Weight 116.00 lb Heart Rate 66 /min BP Systolic Sitting 100 mmHg BP Diastolic Sitting 62 mmHg Respiratory Rate 14 /min BMI (Body Mass Index) 22.3 kg/m2 09/12/2017 Height 60.5 inches 5'0.50" Weight 115.00 lb Heart Rate 68 /min BP Systolic Sitting 112 mmHg Lue reg cuff BP Diastolic Sitting 72 mmHg Lue reg cuff BP Systolic Standing 112 mmHg Lue BP Diastolic Standing 70 mmHg Lue Respiratory Rate 14 /min BMI (Body Mass Index) 22.1 kg/m2 03/17/2017 Height 60.5 inches 5'0.50" Weight 113.00 lb w/shoes Heart Rate 62 /min BP Systolic Sitting 104 mmHg LA pediatric cuff BP Diastolic Sitting 76 mmHg LA pediatric cuff BP Systolic Standing 118 mmHg Ra pediatric cuff BP Diastolic Standing 78 mmHg Ra pediatric cuff BMI (Body Mass Index) 21.7 kg/m2 Ejection Fraction 35-40% Echo 01/01/17 03/15/2017 Height 60.5 inches 5'0.50" Weight 109.00 lb Heart Rate 68 /min BP Systolic Sitting 100 mmHg BP Diastolic Sitting 60 mmHg Respiratory Rate 16 /min BMI (Body Mass Index) 20.9 kg/m2 01/18/2017 Height 60.5 inches 5'0.50" Weight 106.75 lb w/o shoes Heart Rate 70 /min BP Systolic Sitting 102 mmHg LA small adult cuff BP Diastolic Sitting 68 mmHg LA small adult cuff BMI (Body Mass Index) 20.5 kg/m2 Ejection Fraction 35% - 40% echo 01/01/17 10/28/2016 Height 60.5 inches 5'0.50" Weight 111.50 lb w/shoes Heart Rate 70 /min BP Systolic Sitting 74 mmHg LA reg cuff BP Diastolic Sitting 62 mmHg LA reg cuff BMI (Body Mass Index) 21.4 kg/m2 Ejection Fraction 50-55% Jeb 09/21/16 09/14/2016 Height 60.5 inches 5'0.50" Weight 108.00 lb Heart Rate 76 /min BP Systolic Sitting 106 mmHg BP Diastolic Sitting 66 mmHg BMI (Body Mass Index) 20.7 kg/m2 09/05/2016 Height 60.5 inches 5'0.50" Weight 108.00 lb without shoes Heart Rate 70 /min BP Systolic Sitting 90 mmHg LA reg cuff BP Diastolic Sitting 70 mmHg LA reg cuff BP Systolic Standing 94 mmHg LA reg cuff BP Diastolic Standing 70 mmHg LA reg cuff Respiratory Rate 16 /min BMI (Body Mass Index) 20.7 kg/m2 Ejection Fraction 60-65% date 05/11/16 ECHO 07/11/2016 Height 60.5 inches 5'0.50" Weight 111.00 lb with shoes Heart Rate 66 /min BP Systolic Sitting 92 mmHg LA reg cuff BP Diastolic Sitting 66 mmHg LA reg cuff Respiratory Rate 17 /min BMI (Body Mass Index) 21.3 kg/m2 Ejection Fraction 60-65% date 05/11/16 ECHO [facility] 05/13/2016 Height 60.5 inches 5'0.50" Weight 113.00 lb w/o shoes Heart Rate 78 /min reg BP Systolic Sitting 88 mmHg Lue, reg cuff BP Diastolic Sitting 60 mmHg Lue, reg cuff BP Systolic Standing 84 mmHg Lue BP Diastolic Standing 60 mmHg Lue Respiratory Rate 16 /min BMI (Body Mass Index) 21.7 kg/m2 Ejection Fraction 60-65% as of 05/11/16 03/31/2016 Height 60.5 inches 5'0.50" Weight 112.50 lb Heart Rate 64 /min BP Systolic Sitting 108 mmHg LA reg cuff BP Diastolic Sitting 68 mmHg LA reg cuff BP Systolic Standing 102 mmHg LA BP Diastolic Standing 66 mmHg LA Respiratory Rate 14 /min BMI (Body Mass Index) 21.6 kg/m2 Ejection Fraction 45-50% 12/04/15 02/09/2016 Height 60.5 inches 5'0.50" Weight 114.00 lb without shoes Heart Rate 54 /min irreg BP Systolic Sitting 80 mmHg LA reg cuff BP Diastolic Sitting 66 mmHg LA reg cuff BP Systolic Standing 90 mmHg LA reg cuff BP Diastolic Standing 64 mmHg LA reg cuff Respiratory Rate 16 /min BMI (Body Mass Index) 21.9 kg/m2 Ejection Fraction 45-50% date 12/04/15 ECHO 01/26/2016 Height 60.5 inches 5'0.50" Weight 111.00 lb Heart Rate 60 /min BP Systolic Sitting 108 mmHg BP Diastolic Sitting 72 mmHg Respiratory Rate 14 /min BMI (Body Mass Index) 21.3 kg/m2 12/28/2015 Height 60.5 inches 5'0.50" Weight 115.00 lb without shoes BP Systolic Sitting 88 mmHg La reg cuff BP Diastolic Sitting 72 mmHg La reg cuff BMI (Body Mass Index) 22.1 kg/m2 11/10/2015 Height 60.5 inches 5'0.50" Weight 116.00 lb with shoes Heart Rate 72 /min BP Systolic 84 mmHg LA reg cuff BP Diastolic 64 mmHg LA reg cuff BP Systolic Sitting 79 mmHg LA reg cuff BP Diastolic Sitting 62 mmHg LA reg cuff Respiratory Rate 16 /min BMI (Body Mass Index) 22.3 kg/m2 Ejection Fraction 55-60% date 08/05/15 Jeb 10/05/2015 Height 60.5 inches 5'0.50" Weight 117.75 lb with shoes Heart Rate 50 /min BP Systolic Sitting 110 mmHg LA reg cuff BP Diastolic Sitting 70 mmHg LA reg cuff Respiratory Rate 16 /min BMI (Body Mass Index) 22.6 kg/m2 Ejection Fraction 55-60% date 07/16/15 ECHO 09/11/2015 Height 60.5 inches 5'0.50" Weight 118.00 lb Heart Rate 68 /min BP Systolic Sitting 94 mmHg Ra, reg BP Diastolic Sitting 74 mmHg Ra, reg BMI (Body Mass Index) 22.7 kg/m2 Ejection Fraction 55%-60% Jeb 07/29/2015 Height 60.5 inches 5'0.50" Weight 118.00 lb without shoes Heart Rate 60 /min BP Systolic Sitting 80 mmHg LA reg cuff BP Diastolic Sitting 60 mmHg LA reg cuff BP Systolic Standing 100 mmHg LA reg cuff BP Diastolic Standing 70 mmHg LA reg cuff Respiratory Rate 16 /min BMI (Body Mass Index) 22.7 kg/m2 Ejection Fraction 50-55% date 02/12/15 ECHO 07/13/2015 Height 60.5 inches 5'0.50" Weight 111.00 lb w/o shoes Heart Rate 62 /min BP Systolic Sitting 110 mmHg LA reg cuff BP Diastolic Sitting 76 mmHg LA reg cuff BMI (Body Mass Index) 21.3 kg/m2 Ejection Fraction 50-55 echo 02/12/15 02/27/2015 Height 60.5 inches 5'0.50" Weight 115.31 lb no shoes Heart Rate 68 /min BP Systolic Sitting 84 mmHg LA, reg cuff BP Diastolic Sitting 68 mmHg LA, reg cuff BP Systolic Standing 80 mmHg LA BP Diastolic Standing 70 mmHg LA Respiratory Rate 16 /min BMI (Body Mass Index) 22.1 kg/m2 02/18/2015 Height 60.25 inches 5'0.25" Weight 113.00 lb Heart Rate 66 /min BP Systolic Sitting 98 mmHg LA, small cuff BP Diastolic Sitting 64 mmHg LA, small cuff BMI (Body Mass Index) 21.9 kg/m2 12/11/2014 Height 60.25 inches 5'0.25" Weight 122.75 lb with out shoes Heart Rate 76 /min BP Systolic Sitting 100 mmHg LA reg cuff BP Diastolic Sitting 72 mmHg LA reg cuff Respiratory Rate 16 /min BMI (Body Mass Index) 23.8 kg/m2 11/05/2014 Height 60.25 inches 5'0.25" Weight 128.25 lb without shoes Heart Rate 82 /min BP Systolic Sitting 90 mmHg LA reg cuff BP Diastolic Sitting 70 mmHg LA reg cuff Respiratory Rate 17 /min BMI (Body Mass Index) 24.8 kg/m2 09/30/2014 Height 60.25 inches 5'0.25" Weight 128.50 lb Heart Rate 80 /min BP Systolic Sitting 138 mmHg LA reg cuff BP Diastolic Sitting 100 mmHg LA reg cuff Respiratory Rate 16 /min BMI (Body Mass Index) 24.9 kg/m2 02/24/2014 Height 60.25 inches 5'0.25" Heart Rate 84 /min BP Systolic Sitting 110 mmHg BP Diastolic Sitting 78 mmHg 01/16/2014 Height 60.25 inches 5'0.25" Weight 123.00 lb Heart Rate 88 /min BP Systolic Sitting 132 mmHg BP Diastolic Sitting 72 mmHg Respiratory Rate 16 /min BMI (Body Mass Index) 23.8 kg/m2 01/31/2013 Height 60.25 inches 5'0.25" Weight 126.00 lb Heart Rate 61 /min BP Systolic Sitting 107 mmHg BP Diastolic Sitting 64 mmHg BMI (Body Mass Index) 24.4 kg/m2 01/17/2013 Height 60.25 inches 5'0.25" Weight 128.00 lb Heart Rate 67 /min BP Systolic Sitting 130 mmHg BP Diastolic Sitting 62 mmHg BMI (Body Mass Index) 24.8 kg/m2 01/03/2013 Height 60.25 inches 5'0.25" Weight 128.00 lb Heart Rate 61 /min BP Systolic Sitting 121 mmHg BP Diastolic Sitting 69 mmHg Body Temperature 97.1 F BMI (Body Mass Index) 24.8 kg/m2 04/07/2011 Height 60 inches 5'0" Weight 148.00 lb Heart Rate 80 /min BP Systolic 118 mmHg BP Diastolic 64 mmHg BMI (Body Mass Index) 28.9 kg/m2 02/15/2011 Height 60 inches 5'0" Weight 145.00 lb Heart Rate 80 /min BP Systolic 120 mmHg BP Diastolic 74 mmHg BMI (Body Mass Index) 28.3 kg/m2 06/29/2010 Heart Rate 80 /min BP Systolic 122 mmHg BP Diastolic 80 mmHg Results Test Date Test Result H/L Range [...] Red Blood Cells % 0 Laboratory test finding 05/29/2018 Erythrocyte Sed Rate 47 mm/Hr High 0- 40 Istat BUN/Crea/Egfr/V Eastct 01/15/2018 Poc Bun Eastct 41 mg/dL High 9-18 Poc Crea Eastct 1.5 mg/dL High 0.6-0.9 GFR Non- Ect 33.3 >60 GFR Eastct 42.9 >60 3 Laboratory test finding 01/15/2018 Ferritin 144.8 ng/mL 11-307 4, 5 Comp Metabolic Panel 01/15/2018 Sodium 140 mmol/L 133-145 4 Potassium 4.5 mmol/L 3.5-5.0 4 Chloride 105 mmol/L 101-111 4 Co2 Carbon Dioxide 27 mmol/L 22-32 4 Anion Gap 8 mmol/L 2-11 4 Glucose 88 mg/dL 70-100 4 Blood Urea Nitrogen 42 mg/dL High 6-24 4 Creatinine 1.58 mg/dL High 0.51-0.95 4 BUN/Creatinine Ratio 26.6 High 8-20 4 Calcium 9.4 mg/dL 8.6-10.3 4 Total Protein 6.7 g/dL 6.4-8.9 4 Albumin 3.9 g/dL 3.2-5.2 4 Globulin 2.8 g/dL 2-4 4 Albumin/Globulin Ratio 1.4 1-3 4 Total Bilirubin 1.00 mg/dL 0.2-1.0 4 Alkaline Phosphatase 75 U/L 34-104 4 Alt 17 U/L 7-52 4 Ast 29 U/L 13-39 4 Egfr Non- 31.4 >60 4 Egfr 40.4 >60 4, 6 Lipid Profile (Trig/Chol/HDL) 01/15/2018 Triglycerides 79 mg/dL 4, 7 Cholesterol 134 mg/dL 4, 8 HDL Cholesterol 48.3 mg/dL 4, 9 LDL Cholesterol 70 mg/dL 4, 10 CBC Auto Diff 01/15/2018 White Blood Count 6.9 10^3/uL 3.5-10.8 4 Red Blood Count 4.34 10^6/uL 4.0-5.4 4 Hemoglobin 13.6 g/dL 12.0-16.0 4 Hematocrit 41 % 35-47 4 Mean Corpuscular Volume 94 fL 80-97 4 Mean Corpuscular Hemoglobin 31 pg 27-31 4 Mean Corpuscular HGB Conc 34 g/dL 31-36 4 Red Cell Distribution Width 14 % 10.5-15 4 Platelet Count 145 10^3/uL Low 150-450 4 Mean Platelet Volume 11 um3 High 7.4-10.4 4 Abs Neutrophils 5.2 10^3/uL 1.5-7.7 4 Abs Lymphocytes 0.8 10^3/uL Low 1.0-4.8 4 Abs Monocytes 0.7 10^3/uL 0-0.8 4 Abs Eosinophils 0.1 10^3/uL 0-0.6 4 Abs Basophils 0 10^3/uL 0-0.2 4 Abs Nucleated RBC 0 10^3/uL 4 Granulocyte % 75.4 % 38-83 4 Lymphocyte % 12.2 % Low 25-47 4 Monocyte % 9.9 % High 1-9 4 Eosinophil % 2.0 % 0-6 4 Basophil % 0.5 % 0-2 4 Nucleated Red Blood Cells % 0 4 Basic Metabolic Panel 09/15/2017 Sodium 141 mmol/L 133-145 Chloride 106 mmol/L 101-111 Co2 Carbon Dioxide 30 mmol/L 22-32 Glucose 91 mg/dL 70-100 Blood Urea Nitrogen 35 mg/dL High 6-24 Creatinine 1.65 mg/dL High 0.51-0.95 BUN/Creatinine Ratio 21.2 High 8-20 Calcium 9.3 mg/dL 8.6-10.3 Egfr Non- 29.9 >60 Egfr 38.4 >60 11 Potassium 5.1 mmol/L High 3.5-5.0 Anion Gap 5 mmol/L 2-11 Laboratory test finding 09/15/2017 Alt (SGPT) 23 U/L 7-52 Ast (Sgot) 32 U/L 13-39 TSH (Thyroid Stim Horm) 1.52 mcIU/mL 0.34-5.60 Iron & Iron Binding Capacity 05/25/2017 Iron 81 g/dL 50-212 Unsaturated Iron Binding 177 g/dL Total Iron Binding Capacity 258 g/dL 250-450 % Iron Saturation 31 % 15-55 Laboratory test finding 05/25/2017 Ferritin 313.4 ng/mL High 11-307 CBC Auto Diff 05/25/2017 White Blood Count 8.1 10^3/uL 3.5-10.8 Red Blood Count 3.98 10^6/uL Low 4.0-5.4 Hemoglobin 12.8 g/dL 12.0-16.0 Hematocrit 39 % 35-47 Mean Corpuscular Volume 97 fL 80-97 Mean Corpuscular Hemoglobin 32 pg High 27-31 Mean Corpuscular HGB Conc 33 g/dL 31-36 Red Cell Distribution Width 14 % 10.5-15 Platelet Count 126 10^3/uL Low 150-450 Mean Platelet Volume 11 um3 High 7.4-10.4 Abs Neutrophils 5.9 10^3/uL 1.5-7.7 Abs Lymphocytes 1.2 10^3/uL 1.0-4.8 Abs Monocytes 0.7 10^3/uL 0-0.8 Abs Eosinophils 0.2 10^3/uL 0-0.6 Abs Basophils 0 10^3/uL 0-0.2 Abs Nucleated RBC 0 10^3/uL Granulocyte % 73.4 % 38-83 Lymphocyte % 14.3 % Low 25-47 Monocyte % 9.2 % High 1-9 Eosinophil % 2.8 % 0-6 Basophil % 0.3 % 0-2 Nucleated Red Blood Cells % 0 CBC Auto Diff 01/31/2017 White Blood Count 7.5 10^3/uL 3.5-10.8 Red Blood Count 3.89 10^6/uL Low 4.0-5.4 Hemoglobin 10.8 g/dL Low 12.0-16.0 Hematocrit 35 % 35-47 Mean Corpuscular Volume 90 fL 80-97 Mean Corpuscular Hemoglobin 28 pg 27-31 Mean Corpuscular HGB Conc 31 g/dL 31-36 Red Cell Distribution Width 22 % High 10.5-15 12 Platelet Count 155 10^3/uL 150-450 Mean Platelet Volume 11 um3 High 7.4-10.4 Abs Neutrophils 5.4 10^3/uL 1.5-7.7 Abs Lymphocytes 1.1 10^3/uL 1.0-4.8 Abs Monocytes 0.7 10^3/uL 0-0.8 Abs Eosinophils 0.2 10^3/uL 0-0.6 Abs Basophils 0.1 10^3/uL 0-0.2 Abs Nucleated RBC 0 10^3/uL Granulocyte % 72.1 % 38-83 Lymphocyte % 15.3 % Low 25-47 Monocyte % 9.6 % High 1-9 Eosinophil % 2.2 % 0-6 Basophil % 0.8 % 0-2 Nucleated Red Blood Cells % 0 Iron & Iron Binding Capacity 01/31/2017 Iron 38 g/dL Low 50-212 Unsaturated Iron Binding 354 g/dL Total Iron Binding Capacity 392 g/dL 250-450 % Iron Saturation 10 % Low 15-55 Laboratory test finding 01/31/2017 Ferritin 82.1 ng/mL 11-307 Basic Metabolic Panel 11/16/2016 Sodium 136 mmol/L 133-145 Potassium 4.2 mmol/L 3.5-5.0 Chloride 101 mmol/L 101-111 Co2 Carbon Dioxide 29 mmol/L 22-32 Anion Gap 6 mmol/L 2-11 Glucose 87 mg/dL 70-100 Blood Urea Nitrogen 27 mg/dL High 6-24 Creatinine 1.62 mg/dL High 0.51-0.95 BUN/Creatinine Ratio 16.7 8-20 Calcium 8.7 mg/dL 8.6-10.3 Egfr Non- 30.6 >60 Egfr 39.3 >60 13 Cath Panel 11/14/2016 Partial Thrombo Time PTT 30.7 seconds 26.0-36.3 CBC Auto Diff 11/14/2016 White Blood Count 7.1 10^3/uL 3.5-10.8 Red Blood Count 3.50 10^6/uL Low 4.0-5.4 Hemoglobin 10.8 g/dL Low 12.0-16.0 Hematocrit 34 % Low 35-47 Mean Corpuscular Volume 96 fL 80-97 Mean Corpuscular Hemoglobin 31 pg 27-31 Mean Corpuscular HGB Conc 32 g/dL 31-36 Red Cell Distribution Width 14 % 10.5-15 Platelet Count 231 10^3/uL 150-450 Mean Platelet Volume 11 um3 High 7.4-10.4 Abs Neutrophils 5.0 10^3/uL 1.5-7.7 Abs Lymphocytes 1.1 10^3/uL 1.0-4.8 Abs Monocytes 0.7 10^3/uL 0-0.8 Abs Eosinophils 0.3 10^3/uL 0-0.6 Abs Basophils 0.1 10^3/uL 0-0.2 Abs Nucleated RBC 0 10^3/uL Granulocyte % 70.1 % 38-83 Lymphocyte % 14.9 % Low 25-47 Monocyte % 9.7 % High 1-9 Eosinophil % 4.2 % 0-6 Basophil % 1.1 % 0-2 Nucleated Red Blood Cells % 0 Inr/Protime 11/14/2016 Inr 0.98 0.89-1.11 Basic Metabolic Panel 11/14/2016 Sodium 139 mmol/L 133-145 Potassium 4.6 mmol/L 3.5-5.0 Chloride 106 mmol/L 101-111 Co2 Carbon Dioxide 29 mmol/L 22-32 Anion Gap 4 mmol/L 2-11 Glucose 75 mg/dL 70-100 Blood Urea Nitrogen 29 mg/dL High 6-24 Creatinine 1.73 mg/dL High 0.51-0.95 BUN/Creatinine Ratio 16.8 8-20 Calcium 8.8 mg/dL 8.6-10.3 Egfr Non- 28.3 >60 Egfr 36.4 >60 14 CBC Auto Diff 09/21/2016 White Blood Count 7.2 10^3/uL 3.5-10.8 Red Blood Count 3.24 10^6/uL Low 4.0-5.4 Hemoglobin 10.2 g/dL Low 12.0-16.0 Hematocrit 32 % Low 35-47 Mean Corpuscular Volume 98 fL High 80-97 Mean Corpuscular Hemoglobin 32 pg High 27-31 Mean Corpuscular HGB Conc 32 g/dL 31-36 Red Cell Distribution Width 16 % High 10.5-15 Platelet Count 218 10^3/uL 150-450 Mean Platelet Volume 10 um3 7.4-10.4 Abs Neutrophils 4.7 10^3/uL 1.5-7.7 Abs Lymphocytes 1.3 10^3/uL 1.0-4.8 Abs Monocytes 0.8 10^3/uL 0-0.8 Abs Eosinophils 0.3 10^3/uL 0-0.6 Abs Basophils 0.1 10^3/uL 0-0.2 Abs Nucleated RBC 0 10^3/uL Granulocyte % 65.0 % 38-83 Lymphocyte % 18.6 % Low 25-47 Monocyte % 11.0 % High 1-9 Eosinophil % 4.0 % 0-6 Basophil % 1.4 % 0-2 Nucleated Red Blood Cells % 0.1 Basic Metabolic Panel 09/21/2016 Sodium 137 mmol/L 133-145 Potassium 4.1 mmol/L 3.5-5.0 Chloride 106 mmol/L 101-111 Co2 Carbon Dioxide 27 mmol/L 22-32 Anion Gap 4 mmol/L 2-11 Glucose 83 mg/dL 70-100 Blood Urea Nitrogen 30 mg/dL High 6-24 Creatinine 1.61 mg/dL High 0.51-0.95 BUN/Creatinine Ratio 18.6 8-20 Calcium 8.6 mg/dL 8.6-10.3 Egfr Non- 30.8 >60 Egfr 39.6 >60 15 CBC Auto Diff 08/26/2016 White Blood Count 10.1 10^3/uL 3.5-10.8 Red Blood Count 2.95 10^6/uL Low 4.0-5.4 Hemoglobin 9.0 g/dL Low 12.0-16.0 Hematocrit 28 % Low 35-47 Mean Corpuscular Volume 95 fL 80-97 Mean Corpuscular Hemoglobin 31 pg 27-31 Mean Corpuscular HGB Conc 32 g/dL 31-36 Red Cell Distribution Width 18 % High 10.5-15 Platelet Count 235 10^3/uL 150-450 Mean Platelet Volume 11 um3 High 7.4-10.4 Abs Neutrophils 8.1 10^3/uL High 1.5-7.7 Abs Lymphocytes 1.0 10^3/uL 1.0-4.8 Abs Monocytes 0.7 10^3/uL 0-0.8 Abs Eosinophils 0.2 10^3/uL 0-0.6 Abs Basophils 0.1 10^3/uL 0-0.2 Abs Nucleated RBC 0 10^3/uL Granulocyte % 80.8 % 38-83 Lymphocyte % 9.6 % Low 25-47 Monocyte % 7.4 % 1-9 Eosinophil % 1.5 % 0-6 Basophil % 0.7 % 0-2 Nucleated Red Blood Cells % 0 Comp Metabolic Panel 08/26/2016 Sodium 137 mmol/L 133-145 Potassium 4.4 mmol/L 3.5-5.0 Chloride 105 mmol/L 101-111 Co2 Carbon Dioxide 27 mmol/L 22-32 Anion Gap 5 mmol/L 2-11 Glucose 79 mg/dL 70-100 Blood Urea Nitrogen 27 mg/dL High 6-24 Creatinine 1.54 mg/dL High 0.51-0.95 BUN/Creatinine Ratio 17.5 8-20 Calcium 8.2 mg/dL Low 8.6-10.3 Total Protein 5.8 g/dL Low 6.4-8.9 Albumin 3.1 g/dL Low 3.2-5.2 Globulin 2.7 g/dL 2-4 Albumin/Globulin Ratio 1.1 1-3 Total Bilirubin 0.80 mg/dL 0.2-1.0 Alkaline Phosphatase 92 U/L 34-104 Alt 66 U/L High 7-52 Ast 79 U/L High 13-39 Egfr Non- 32.4 >60 Egfr 41.7 >60 16 Laboratory test finding 08/26/2016 Creatine Kinase(CK) 69 U/L 10-223 C Reactive Protein 10.40 mg/L High < 5.00 17 Vitamin B12 1285 pg/mL High 180-914 18 Laboratory test finding 02/02/2016 Homocysteine 14 mcmol/L 19 Methylmalonic Acid Mma 0.41 nmol/mL <=0.40 20 Vitamin B12 588 pg/mL 180-914 21 TSH (Thyroid Stim Horm) 2.25 ?IU/mL 0.34-5.60 Syphilis IgG w/reflex RPR Nonreactive Nonreactive 22 Laboratory test finding 11/06/2015 Troponin-I (TnI) 0.01 ng/mL <0.03 23 Comp Metabolic Panel 11/06/2015 Sodium 134 mmol/L 133-145 Chloride 103 mmol/L 101-111 Co2 Carbon Dioxide 24 mmol/L 22-32 Glucose 83 mg/dL 70-100 Blood Urea Nitrogen 26 mg/dL High 6-24 Creatinine 1.58 mg/dL High 0.51-0.95 BUN/Creatinine Ratio 16.5 8-20 Calcium 9.4 mg/dL 8.6-10.3 Total Protein 7.0 g/dL 6.4-8.9 Albumin 3.6 g/dL 3.2-5.2 Globulin 3.4 g/dL 2-4 Albumin/Globulin Ratio 1.1 1-3 Total Bilirubin 0.80 mg/dL 0.2-1.0 Alkaline Phosphatase 88 U/L 34-104 Alt 31 U/L 7-52 Egfr Non- 31.5 >60 Egfr 40.6 >60 24 Potassium TNP mmol/L 3.5-5.0 25 Anion Gap TNP mmol/L 2-11 Ast TNP U/L 13-39 26 CBC Auto Diff 11/06/2015 White Blood Count 7.4 10^3/uL 3.5-10.8 Red Blood Count 4.60 10^6/uL 4.0-5.4 Hemoglobin 14.4 g/dL 12.0-16.0 Hematocrit 44 % 35-47 Mean Corpuscular Volume 95 fL 80-97 Mean Corpuscular Hemoglobin 31 pg 27-31 Mean Corpuscular HGB Conc 33 g/dL 31-36 Red Cell Distribution Width 15 % 10.5-15 Platelet Count 187 10^3/uL 150-450 Mean Platelet Volume 10 um3 7.4-10.4 Abs Neutrophils 5.7 10^3/uL 1.5-7.7 Abs Lymphocytes 1.1 10^3/uL 1.0-4.8 Abs Monocytes 0.5 10^3/uL 0-0.8 Abs Eosinophils 0.1 10^3/uL 0-0.6 Abs Basophils 0.1 10^3/uL 0-0.2 Abs Nucleated RBC 0.01 10^3/uL Granulocyte % 76.8 % 38-83 Lymphocyte % 14.5 % Low 25-47 Monocyte % 6.8 % 1-9 Eosinophil % 1.0 % 0-6 Basophil % 0.9 % 0-2 Nucleated Red Blood Cells % 0.1 Comp Metabolic Panel 09/04/2015 Sodium 135 mmol/L 133-145 Potassium 4.7 mmol/L 3.5-5.0 Chloride 102 mmol/L 101-111 Co2 Carbon Dioxide 31 mmol/L 22-32 Anion Gap 2 mmol/L 2-11 Glucose 88 mg/dL 70-100 Blood Urea Nitrogen 23 mg/dL 6-24 Creatinine 1.60 mg/dL High 0.51-0.95 BUN/Creatinine Ratio 14.4 8-20 Calcium 8.7 mg/dL 8.6-10.3 Total Protein 6.5 g/dL 6.4-8.9 Albumin 3.6 g/dL 3.2-5.2 Globulin 2.9 g/dL 2-4 Albumin/Globulin Ratio 1.2 1-3 Total Bilirubin 0.90 mg/dL 0.2-1.0 Alkaline Phosphatase 96 U/L 34-104 Alt 16 U/L 7-52 Ast 26 U/L 13-39 Egfr Non- 31.1 >60 Egfr 40.0 >60 27 CBC Auto Diff 09/04/2015 White Blood Count 6.7 10^3/uL 4.8-10.8 Red Blood Count 4.16 10^6/uL 4.0-5.4 Hemoglobin 12.6 g/dL 12.0-16.0 Hematocrit 39 % 35-47 Mean Corpuscular Volume 95 fL 80-97 Mean Corpuscular Hemoglobin 30 pg 27-31 Mean Corpuscular HGB Conc 32 g/dL 31-36 Red Cell Distribution Width 15 % 10.5-15 Platelet Count 192 10^3/uL 150-450 Mean Platelet Volume 10 um3 7.4-10.4 Abs Neutrophils 4.6 10^3/uL 1.5-7.7 Abs Lymphocytes 1.3 10^3/uL 1.0-4.8 Abs Monocytes 0.7 10^3/uL 0-0.8 Abs Eosinophils 0.1 10^3/uL 0-0.6 Abs Basophils 0.1 10^3/uL 0-0.2 Abs Nucleated RBC 0.01 10^3/uL Granulocyte % 68.3 % 38-83 Lymphocyte % 18.8 % Low 25-47 Monocyte % 10.4 % High 1-9 Eosinophil % 1.7 % 0-6 Basophil % 0.8 % 0-2 Nucleated Red Blood Cells % 0.2 Laboratory test finding 09/04/2015 Magnesium 1.9 mg/dL 1.9-2.7 Ferritin 56.2 ng/mL 11-307 Vitamin B12 1281 pg/mL High 180-914 28 CBC Auto Diff 06/17/2015 White Blood Count 7.9 10^3/uL 4.8-10.8 Red Blood Count 4.11 10^6/uL 4.0-5.4 Hemoglobin 12.8 g/dL 12.0-16.0 Hematocrit 40 % 35-47 Mean Corpuscular Volume 96 fL 80-97 Mean Corpuscular Hemoglobin 31 pg 27-31 Mean Corpuscular HGB Conc 32 g/dL 31-36 Red Cell Distribution Width 18 % High 10.5-15 Platelet Count 232 10^3/uL 150-450 Mean Platelet Volume 10 um3 7.4-10.4 Abs Neutrophils 5.5 10^3/uL 1.5-7.7 Abs Lymphocytes 1.5 10^3/uL 1.0-4.8 Abs Monocytes 0.6 10^3/uL 0-0.8 Abs Eosinophils 0.2 10^3/uL 0-0.6 Abs Basophils 0.1 10^3/uL 0-0.2 Abs Nucleated RBC 0 10^3/uL Granulocyte % 70.0 % 38-83 Lymphocyte % 19.3 % Low 25-47 Monocyte % 7.5 % 1-9 Eosinophil % 2.1 % 0-6 Basophil % 1.1 % 0-2 Nucleated Red Blood Cells % 0 Retic Count 06/17/2015 Retic Count 1.7 % High 0.5-1.5 Corrected Retic Count 1.5 % 0.5-1.5 Maturation Factor Retic 1.0 Retic Index 1.50 Mean Retic Volume 107.6 Immature Retic Fraction 0.33 RBC Retic Count 4.11 10^6/uL Low 4.6-6.2 Hematocrit for Retic CNT 40 % 35-47 Comp Metabolic Panel 06/17/2015 Sodium 137 mmol/L 133-145 Potassium 4.4 mmol/L 3.5-5.0 Chloride 103 mmol/L 101-111 Co2 Carbon Dioxide 28 mmol/L 22-32 Anion Gap 6 mmol/L 2-11 Glucose 99 mg/dL 70-100 Blood Urea Nitrogen 24 mg/dL 6-24 Creatinine 1.63 mg/dL High 0.51-0.95 BUN/Creatinine Ratio 14.7 8-20 Calcium 9.0 mg/dL 8.6-10.3 Total Protein 6.3 g/dL Low 6.4-8.9 Albumin 3.7 g/dL 3.2-5.2 Globulin 2.6 g/dL 2-4 Albumin/Globulin Ratio 1.4 1-3 Total Bilirubin 0.60 mg/dL 0.2-1.0 Alkaline Phosphatase 71 U/L 34-104 Alt 16 U/L 7-52 Ast 27 U/L 13-39 Egfr Non- 30.5 >60 Egfr 39.2 >60 29 Lipid Profile (Trig/Chol/HDL) 06/17/2015 Triglycerides 123 mg/dL 30 Cholesterol 139 mg/dL 31 HDL Cholesterol 51.3 mg/dL 32 LDL Cholesterol 63 mg/dL 33 Laboratory test finding 06/17/2015 Magnesium 2.0 mg/dL 1.9-2.7 Ferritin 298.2 ng/mL CBC Auto Diff 05/20/2015 White Blood Count 8.0 10^3/uL 4.8-10.8 Red Blood Count 3.82 10^6/uL Low 4.0-5.4 Hemoglobin 11.6 g/dL Low 12.0-16.0 Hematocrit 36 % 35-47 Mean Corpuscular Volume 95 fL 80-97 Mean Corpuscular Hemoglobin 31 pg 27-31 Mean Corpuscular HGB Conc 32 g/dL 31-36 Red Cell Distribution Width 19 % High 10.5-15 Platelet Count 193 10^3/uL 150-450 Mean Platelet Volume 11 um3 High 7.4-10.4 Abs Neutrophils 6.3 10^3/uL 1.5-7.7 Abs Lymphocytes 1.0 10^3/uL 1.0-4.8 Abs Monocytes 0.6 10^3/uL 0-0.8 Abs Eosinophils 0.1 10^3/uL 0-0.6 Abs Basophils 0.1 10^3/uL 0-0.2 Abs Nucleated RBC 0 10^3/uL Granulocyte % 77.9 % 38-83 Lymphocyte % 13.0 % Low 25-47 Monocyte % 7.4 % 1-9 Eosinophil % 0.8 % 0-6 Basophil % 0.9 % 0-2 Nucleated Red Blood Cells % 0 Iron & Iron Binding Capacity 05/20/2015 Iron 74 g/dL 50-212 Unsaturated Iron Binding 290 g/dL Total Iron Binding Capacity 364 g/dL 250-450 % Iron Saturation 20 % 15-55 Laboratory test finding 05/20/2015 Ferritin 777.6 ng/mL High 307 Basic Metabolic Panel 05/08/2015 Sodium 138 mmol/L 133-145 Potassium 4.7 mmol/L 3.5-5.0 Chloride 106 mmol/L 101-111 Co2 Carbon Dioxide 28 mmol/L 22-32 Anion Gap 4 mmol/L 2-11 Glucose 66 mg/dL Low 70-100 Blood Urea Nitrogen 27 mg/dL High 6-24 Creatinine 1.78 mg/dL High 0.51-0.95 BUN/Creatinine Ratio 15.2 8-20 Calcium 9.3 mg/dL 8.6-10.3 Egfr Non- 27.6 >60 Egfr 35.5 >60 34 Cold Agglutinin Screen/Titer 05/08/2015 Cold Agglutinin Screen Negative Negative Cold Agglutinin Titer TNP 35 Laboratory test finding 05/08/2015 Stool Occult Blood SEE RESULT BELOW 36 Laboratory test finding 05/07/2015 Stool Occult Blood SEE RESULT BELOW 37 Laboratory test finding 05/06/2015 Stool Occult Blood SEE RESULT BELOW 38 Basic Metabolic Panel 05/05/2015 Sodium 137 mmol/L 133-145 Potassium 4.7 mmol/L 3.5-5.0 Chloride 106 mmol/L 101-111 Co2 Carbon Dioxide 26 mmol/L 22-32 Anion Gap 5 mmol/L 2-11 Glucose 102 mg/dL High 70-100 Blood Urea Nitrogen 33 mg/dL High 6-24 Creatinine 1.80 mg/dL High 0.51-0.95 BUN/Creatinine Ratio 18.3 8-20 Calcium 9.0 mg/dL 8.6-10.3 Egfr Non- 27.2 >60 Egfr 35.0 >60 39 CBC Auto Diff 04/28/2015 White Blood Count 7.3 10^3/uL 4.8-10.8 Red Blood Count 2.72 10^6/uL Low 4.0-5.4 Hemoglobin 8.3 g/dL Low 12.0-16.0 Hematocrit 26 % Low 35-47 Mean Corpuscular Volume 97 fL 80-97 Mean Corpuscular Hemoglobin 30 pg 27-31 Mean Corpuscular HGB Conc 31 g/dL 31-36 Red Cell Distribution Width 15 % 10.5-15 Platelet Count 227 10^3/uL 150-450 Mean Platelet Volume 11 um3 High 7.4-10.4 Abs Neutrophils 5.0 10^3/uL 1.5-7.7 Abs Lymphocytes 1.5 10^3/uL 1.0-4.8 Abs Monocytes 0.6 10^3/uL 0-0.8 Abs Eosinophils 0.2 10^3/uL 0-0.6 Abs Basophils 0.1 10^3/uL 0-0.2 Abs Nucleated RBC 0.01 10^3/uL Granulocyte % 68.2 % 38-83 Lymphocyte % 20.1 % Low 25-47 Monocyte % 8.4 % 1-9 Eosinophil % 2.2 % 0-6 Basophil % 1.1 % 0-2 Nucleated Red Blood Cells % 0.1 CBC Auto Diff 04/09/2015 White Blood Count 9.9 10^3/uL 4.8-10.8 Red Blood Count 3.16 10^6/uL Low 4.0-5.4 Hemoglobin 10.0 g/dL Low 12.0-16.0 Hematocrit 32 % Low 35-47 Mean Corpuscular Volume 100 fL High 80-97 Mean Corpuscular Hemoglobin 32 pg High 27-31 Mean Corpuscular HGB Conc 32 g/dL 31-36 Red Cell Distribution Width 17 % High 10.5-15 Platelet Count 281 10^3/uL 150-450 Mean Platelet Volume 11 um3 High 7.4-10.4 Abs Neutrophils 6.7 10^3/uL 1.5-7.7 Abs Lymphocytes 2.0 10^3/uL 1.0-4.8 Abs Monocytes 0.8 10^3/uL 0-0.8 Abs Eosinophils 0.2 10^3/uL 0-0.6 Abs Basophils 0.1 10^3/uL 0-0.2 Abs Nucleated RBC 0 10^3/uL Granulocyte % 68.0 % 38-83 Lymphocyte % 20.2 % Low 25-47 Monocyte % 8.6 % 1-9 Eosinophil % 2.4 % 0-6 Basophil % 0.8 % 0-2 Nucleated Red Blood Cells % 0 Laboratory test finding 04/09/2015 Direct Antiglobulin Test NEGATIVE Protein Electrophoresis 04/09/2015 Total Protein(Pep) 7.5 g/dL 6.3 - 7.9 Albumin 3.9 g/dL 3.4-4.7 Alpha-1 Globulin 0.3 g/dL 0.1-0.3 Alpha-2 Globulin 1.1 g/dL 0.6-1.0 Beta Globulin 1.0 g/dL 0.7-1.2 Gamma Globulin 1.3 g/dL 0.6-1.6 Albumin/Globulin Ratio 1.05 Impression See Comment 40 Laboratory test finding 04/09/2015 Methylmalonic Acid 0.28 nmol/mL <= 0.40 41 Retic Count 04/09/2015 Retic Count 2.9 % High 0.5-1.5 Corrected Retic Count 2.1 % High 0.5-1.5 Maturation Factor Retic 1.5 Retic Index 1.40 Mean Retic Volume 122.7 Immature Retic Fraction 0.49 RBC Retic Count 3.16 10^6/uL Low 4.6-6.2 Hematocrit for Retic CNT 32 % Low 35-47 Basic Metabolic Panel 03/24/2015 Sodium 135 mmol/L 133-145 Potassium 4.7 mmol/L 3.5-5.0 Chloride 103 mmol/L 101-111 Co2 Carbon Dioxide 27 mmol/L 22-32 Anion Gap 5 mmol/L 2-11 Glucose 97 mg/dL 70-100 Blood Urea Nitrogen 23 mg/dL 6-24 Creatinine 1.62 mg/dL High 0.51-0.95 BUN/Creatinine Ratio 14.2 8-20 Calcium 8.9 mg/dL 8.6-10.3 Egfr Non- 30.7 >60 Egfr 39.5 >60 42 Basic Metabolic Panel 03/03/2015 Sodium 137 mmol/L 133-145 Potassium 4.5 mmol/L 3.5-5.0 Chloride 104 mmol/L 101-111 Co2 Carbon Dioxide 26 mmol/L 22-32 Anion Gap 7 mmol/L 2-11 Glucose 93 mg/dL 70-100 Blood Urea Nitrogen 28 mg/dL High 6-24 Creatinine 1.70 mg/dL High 0.51-0.95 BUN/Creatinine Ratio 16.5 8-20 Calcium 9.3 mg/dL 8.6-10.3 Egfr Non- 29.1 >60 Egfr 37.4 >60 43 Basic Metabolic Panel 02/25/2015 Sodium 136 mmol/L 133-145 Potassium 4.5 mmol/L 3.5-5.0 Chloride 103 mmol/L 101-111 Co2 Carbon Dioxide 28 mmol/L 22-32 Anion Gap 5 mmol/L 2-11 Glucose 63 mg/dL Low 70-100 Blood Urea Nitrogen 29 mg/dL High 6-24 Creatinine 1.64 mg/dL High 0.51-0.95 BUN/Creatinine Ratio 17.7 8-20 Calcium 9.2 mg/dL 8.6-10.3 Egfr Non- 30.3 >60 Egfr 39.0 >60 44 Basic Metabolic Panel 02/24/2015 Sodium 136 mmol/L 133-145 Potassium TNP mmol/L 3.5-5.0 45 Chloride 103 mmol/L 101-111 Co2 Carbon Dioxide 28 mmol/L 22-32 Anion Gap TNP mmol/L 2-11 Glucose 85 mg/dL 70-100 Blood Urea Nitrogen 26 mg/dL High 6-24 Creatinine 1.60 mg/dL High 0.51-0.95 BUN/Creatinine Ratio 16.3 8-20 Calcium 9.3 mg/dL 8.6-10.3 Egfr Non- 31.2 >60 Egfr 40.1 >60 46 Basic Metabolic Panel 02/20/2015 Sodium 137 mmol/L 133-145 Potassium 4.8 mmol/L 3.5-5.0 Chloride 104 mmol/L 101-111 Co2 Carbon Dioxide 29 mmol/L 22-32 Anion Gap 4 mmol/L 2-11 Glucose 74 mg/dL 70-100 Blood Urea Nitrogen 21 mg/dL 6-24 Creatinine 1.73 mg/dL High 0.51-0.95 BUN/Creatinine Ratio 12.1 8-20 Calcium 9.6 mg/dL 8.6-10.3 Egfr Non- 28.5 >60 Egfr 36.6 >60 47 Basic Metabolic Panel 02/16/2015 Sodium 132 mmol/L Low 133-145 Potassium 6.0 mmol/L High 3.5-5.0 Chloride 103 mmol/L 101-111 Co2 Carbon Dioxide 24 mmol/L 22-32 Anion Gap 5 mmol/L 2-11 Glucose 96 mg/dL 70-100 Blood Urea Nitrogen 20 mg/dL 6-24 Creatinine 1.69 mg/dL High 0.51-0.95 BUN/Creatinine Ratio 11.8 8-20 Calcium 9.6 mg/dL 8.6-10.3 Egfr Non- 29.3 >60 Egfr 37.6 >60 48 Laboratory test finding 02/16/2015 Magnesium 2.0 mg/dL 1.9-2.7 Order 09/10/2014 Echocardiogram <pending> Laboratory test finding 04/02/2013 Vitamin B12 984 pg/mL High 180-914 Comp Metabolic Panel 04/02/2013 Sodium 141 mmol/L 133-145 Potassium 4.7 mmol/L 3.5-5.0 Chloride 105 mmol/L 101-111 Co2 Carbon Dioxide 29.0 mmol/L 22-32 Anion Gap 7.0 mmol/L 2-11 Glucose 102 mg/dL High 70-100 Blood Urea Nitrogen 21 mg/dL 6-24 Creatinine 1.30 mg/dL 0.50-1.40 BUN/Creatinine Ratio 16.2 8-20 Calcium 9.6 mg/dL 8.1-9.9 Total Protein 6.8 g/dL 6.2-8.1 Albumin 3.8 g/dL 3.2-5.2 Globulin 3.0 g/dL 2-4 Albumin/Globulin Ratio 1.3 1-3 Total Bilirubin 1.3 mg/dL 0.4-1.5 Alkaline Phosphatase 75 U/L 30-110 Alt 24 U/L 14-54 Ast 32 U/L 12-42 Egfr Non- 39.8 >60 Egfr 51.2 >60 49 CBC Auto Diff 04/02/2013 White Blood Count 7.0 10^3/uL 4.8-10.8 Red Blood Count 4.00 10^6/uL 4.0-5.4 Hemoglobin 13.3 g/dL 12.0-16.0 Hematocrit 40 % 35-47 Mean Corpuscular Volume 100 fL High 80-97 Mean Corpuscular Hemoglobin 33 pg High 27-31 Mean Corpuscular HGB Conc 33 g/dL 31-36 Red Cell Distribution Width 13 % 10.5-15 Platelet Count 174 10^3/uL 150-450 Mean Platelet Volume 11 um3 High 7.4-10.4 Abs Neutrophils 4.4 10^3/uL 1.5-7.7 Abs Lymphocytes 1.8 10^3/uL 1.0-4.8 Abs Monocytes 0.7 10^3/uL 0-0.8 Abs Eosinophils 0.1 10^3/uL 0-0.6 Abs Basophils 0 10^3/uL 0-0.2 Abs Nucleated RBC 0.01 10^3/uL Granulocyte % 63.1 % 38-83 Lymphocyte % 25.1 % 25-47 Monocyte % 9.4 % High 1-9 Eosinophil % 1.7 % 0-6 Basophil % 0.7 % 0-2 Nucleated Red Blood Cells % 0.1 Comp Metabolic Panel 01/09/2013 Sodium 135 mmol/L 133-145 Potassium 4.3 mmol/L 3.5-5.0 Chloride 101 mmol/L 101-111 Co2 Carbon Dioxide 27.0 mmol/L 22-32 Anion Gap 7.0 mmol/L 2-11 Glucose 90 mg/dL 70-100 Blood Urea Nitrogen 22 mg/dL 6-24 Creatinine 1.50 mg/dL High 0.50-1.40 BUN/Creatinine Ratio 14.7 8-20 Calcium 9.6 mg/dL 8.1-9.9 Total Protein 7.5 g/dL 6.2-8.1 Albumin 4.2 g/dL 3.2-5.2 Globulin 3.3 g/dL 2-4 Albumin/Globulin Ratio 1.3 1-3 Total Bilirubin 1.3 mg/dL 0.4-1.5 Alkaline Phosphatase 80 U/L 30-110 Alt 18 U/L 14-54 Ast 30 U/L 12-42 Egfr Non- 33.8 >60 Egfr 43.4 >60 50 Laboratory test finding 01/09/2013 TSH (Thyroid Stimulating 1.40 miu/mL 0.34-5.60 51 Horm) CBC Auto Diff 01/09/2013 White Blood Count 6.3 10^3/uL 4.8-10.8 Red Blood Count 4.15 10^6/uL 4.0-5.4 Hemoglobin 13.5 g/dL 12.0-16.0 Hematocrit 41 % 35-47 Mean Corpuscular Volume 99 fL High 80-97 Mean Corpuscular Hemoglobin 33 pg High 27-31 Mean Corpuscular HGB Conc 33 g/dL 31-36 Red Cell Distribution Width 13 % 10.5-15 Platelet Count 173 10^3/uL 150-450 Mean Platelet Volume 12 um3 High 7.4-10.4 Abs Neutrophils 3.8 10^3/uL 1.5-7.7 Abs Lymphocytes 1.7 10^3/uL 1.0-4.8 Abs Monocytes 0.6 10^3/uL 0-0.8 Abs Eosinophils 0.1 10^3/uL 0-0.6 Abs Basophils 0 10^3/uL 0-0.2 Abs Nucleated RBC 0 10^3/uL Granulocyte % 60.8 % 38-83 Lymphocyte % 26.8 % 25-47 Monocyte % 9.8 % High 1-9 Eosinophil % 2.1 % 0-6 Basophil % 0.5 % 0-2 Nucleated Red Blood Cells % 0 Laboratory test finding 01/09/2013 Vitamin B12 177 pg/mL Low 180-914 52 Folate 12.3 ng/mL 2-16 53 Lipid Profile (Trig/Chol/HDL) 01/09/2013 Triglycerides 118 mg/dL 40-200 Cholesterol 174 mg/dL Less than 200 HDL Cholesterol 62 mg/dL High 40-60 54 Cholesterol/HDL Ratio 2.8 Average 1-4.44 LDL Cholesterol 88.4 mg/dL Less Than 100 55 Vitamin D, 25 Hydroxy 01/09/2013 25-Hydroxy Vitamin D2 <4.0 ng/mL 25-Hydroxy Vitamin D3 52 ng/mL 25-Hydroxy Vitamin D Total 52 ng/mL 56 1 Because ethnic data is not always [...] 145 to 180 Deficient Range <145 3 Because ethnic data is not always readily [...] 15-29 5 Kidney failure <15 (or dialysis) 4 Giant Platelets 5 [id number] "PLEASE ALSO FURNISH RESULTS TO DR. Blanche CALLAHAN 6 Because ethnic data is not always [...] 5 Kidney failure <15 (or dialysis) 7 Desirable: <150 Borderline High: 150-199 High: 200-499 Very High: >500 8 Desirable: <200 Borderline High: 200-239 High: >239 9 Low: <40 Desirable: 40-60 High: >60 10 Desirable: <100 Near Optimal: 100-129 Borderline High: 130-159 High: 160-189 Very High: >189 11 Because ethnic data is not always [...] 5 Kidney failure <15 (or dialysis) 12 Consistent with previous results on 01/20/17. 13 Because ethnic data is not always [...] 5 Kidney failure <15 (or dialysis) 14 Because ethnic data is not always readily [...] 15-29 5 Kidney failure <15 (or dialysis) 15 Because ethnic data is not always readily [...] 15-29 5 Kidney failure <15 (or dialysis) 16 Because ethnic data is not always readily [...] 15-29 5 Kidney failure <15 (or dialysis) 17 Acute inflammation: >10.00 18 Normal Range 180 to 914 Indeterminate Range 145 to 180 Deficient Range <145 19 The homocysteine concentration is elevated in this sample. Increased homocysteine has been associated with an increased risk of cardiovascular disease, cerebrovascular disease, peripheral arterial disease and thrombosis. Vitamin deficiencies (B6, B12 and folic acid) may also cause an increased homocysteine concentration. Inborn errors of methionine metabolism are a potential, but less likely, possibility for hyperhomocysteinemia. Consider plasma or serum methylmalonic acid analysis to rule out vitamin B12 deficiency. REFERENCE VALUE <=13 (Fasting) Test Performed by: [place] [id number] Integration Project Manager: Sylvain Sarkar II, M.D., Ph.D. 20 In this sample, the concentration of methylmalonic acid (MMA) was minimally elevated. As the upper limit of the reference range varies in different laboratories from 0.4 to 0.6 nmol/mL. This finding could be considered normal, especially if the patient does not show other signs of vitamin B12 deficiency. Test Performed by: [place] [id number] Integration Project Manager: Sylvain Sarkar II, M.D., Ph.D. 21 Normal Range 180 to 914 Indeterminate Range 145 to 180 Deficient Range <145 22 Warning: A positive result is not useful for establishing a diagnosis of syphilis. In most situations, such a result may reflect a prior treated infection; a negative result can exclude a diagnosis of syphilis except for incubating or early primary disease. 23 Reference Range and Interpretation: TnI (ng/mL) Interpretation Less Than 0.03 ng/mL Not supportive of diagnosis of [place] 0.03 - 0.50 ng/mL Indeterminate: suggest serial studies if clinically indicated. Greater than 0.5 ng/mL Consistent with diagnosis of [place] 24 Because ethnic data is not always readily [...] 15-29 5 Kidney failure <15 (or dialysis) 25 Unable to report test result due to hemolysis. 26 Unable to report test result due to hemolysis. 27 Because ethnic data is not always readily [...] 15-29 5 Kidney failure <15 (or dialysis) 28 Normal Range 180 to 914 Indeterminate Range 145 to 180 Deficient Range <145 29 Because ethnic data is not always readily [...] 15-29 5 Kidney failure <15 (or dialysis) 30 Desirable <150 Borderline high 150-199 High 200-499 Very High >500 31 Desirable <200 Borderline high 200-239 High >239 32 Low <40 Desirable: 40-60 High: >60 33 Desirable: <100 mg/dL Near Optimal: 100-129 mg/dL Borderline High: 130-159 mg/dL High: 160-189 mg/dL Very High: >189 mg/dL 34 Because ethnic data is not always readily [...] 15-29 5 Kidney failure <15 (or dialysis) 35 Reflex test not required. Test Performed by: [address] [address] Integration Project Manager: Sylvain Sarkar II, M.D., Ph.D. 36 SEE RESULT BELOW Name: SIRISHA DOTSON : [address]: Juan Aguilar MD Acct: [id number] Unit: [id number] AGE: 79 Location: [facility] Re05/12/15 SEX: F Status: REG REF SPEC: [id number] SAMANTHA: 05/08/15-[address] [facility] [address]: Juan Aguilar MD REQ: [id number] RECD: 05/12/15 STATUS: ASHLEIGH CHACON DR: Grecia Pleitez MD _ SOURCE: STOOL SPDESC: ORDERED: Hemoccult Procedure Result Verified Site Stool Specimen Description Final 05/12/15- 1716 ML Test not performed Stool Occult Blood Final 05/12/15- 1716 ML Stool Occult Blood Positive * ML - [facility] ([facility]) . END OF REPORT * ML=Testing performed at Main Lab DEPARTMENT OF PATHOLOGY, [address] [place] [address] Mian Luna M.D. Director [facility] # [id number] 37 SEE RESULT BELOW Name: SIRISHA DOTSON : [address]: Juan Aguilar MD Acct: [id number] Unit: [id number] AGE: 79 Location: [facility] Re05/12/15 SEX: F Status: REG REF SPEC: [id number] SAMANTHA: 05/07/15-[address] [facility] [address]: Juan Aguilar MD REQ: [id number] RECD: 05/12/15 STATUS: ASHLEIGH CHACON DR: Grecia Pleitez MD _ SOURCE: STOOL SPDESC: ORDERED: Hemoccult Procedure Result Verified Site Stool Specimen Description Final 05/12/15- 1716 ML Test not performed Stool Occult Blood Final 05/12/15- 1716 ML Stool Occult Blood Positive * ML - MAIN LAB (PSC1) . END OF REPORT * ML=Testing performed at Main Lab DEPARTMENT OF PATHOLOGY, [address] [place] [address] Mian Luna M.D. Director [facility] # [id number] SEE RESULT BELOW Name: SIRISHA DOTSON : [address]: Juan Aguilar MD Acct: [id number] Unit: [id number] AGE: 79 Location: [facility] Re05/12/15 SEX: F Status: REG REF SPEC: [id number] SAMANTHA: 05/06/15-999 [facility] [address]: Juan Aguilar MD REQ: [id number] RECD: 05/12/15-1300 STATUS: ASHLEIGH CHACON DR: Grecia Pleitez MD _ SOURCE: STOOL SPDESC: ORDERED: Hemoccult Procedure Result Verified Site Stool Specimen Description Final 05/12/15- 1716 ML Test not performed Stool Occult Blood Final 05/12/15- 1716 ML Stool Occult Blood Positive * ML - [facility] ([facility] . END OF REPORT * ML=Testing performed at [facility] DEPARTMENT OF PATHOLOGY, [address] [place] [address] Mian Luna M.D. Director [facility] # [id number] 39 Because ethnic data is not always [...] 5 Kidney failure <15 (or dialysis) 40 RESULT: No apparent monoclonal protein on serum electrophoresis. Test Performed by: [place] [id number] Integration Project Manager: Sylvain Sarkar II, M.D., Ph.D. 41 Test Performed [place] [id number] Integration Project Manager: Sylvain Sarkar II, M.D., Ph.D. 42 Because ethnic data is not always readily [...] 15-29 5 Kidney failure <15 (or dialysis) 43 Because ethnic data is not always readily [...] 15-29 5 Kidney failure <15 (or dialysis) 44 Because ethnic data is not always readily [...] 15-29 5 Kidney failure <15 (or dialysis) 45 Unable to report test result due to hemolysis. 46 Because ethnic data is not always [...] 5 Kidney failure <15 (or dialysis) 47 Because ethnic data is not always readily [...] 15-29 5 Kidney failure <15 (or dialysis) 48 Because ethnic data is not always readily [...] 15-29 5 Kidney failure <15 (or dialysis) 49 Because ethnic data is not always readily [...] 15-29 5 Kidney failure <15 (or dialysis) 50 Because ethnic data is not always readily [...] 15-29 5 Kidney failure <15 (or dialysis) 51 PT IS FASTING 52 PT IS FASTING 53 PT IS FASTING 54 HDL Interpretation: Undesirable: High Risk: Less than 40 MG/DL Desirable: Low Risk: Greater than 60 MG/DL 55 LDL Interpretation: Low Risk Optimal Level: LDL Less than 100 MG/DL Near or Above Optimal: LDL 100-129 MG/DL Borderline High Risk: LDL 130-159 MG/DL High Risk: LDL 160-189 MG/DL Very High Risk: LDL Greater than 189 MG/DL 56 -- REFERENCE VALUE -- 25-HYDROXY D TOTAL (D2+D3) Optimum levels in the normal population are 25-80 Test Performed by: [address] [id number] Integration Project Manager: Tang Ochoa III, M.D. Procedures Date CPT Code Description Status 06/28/2018 27215 EKG Tracing & Interpretation Completed 02/13/2018 12705 EKG Tracing & Interpretation Completed 10/12/2017 57227 ECHO Transthoracic, Real-Time 2D With Doppler And Color Completed Flow 10/12/2017 94963 ECHO Transthoracic, Real-Time 2D With Doppler And Color Completed Flow 09/12/2017 50033 EKG Tracing & Interpretation Completed 01/18/2017 01387 EKG Tracing & Interpretation Completed 01/04/2017 32202 Echocardiogram, Limited Study Completed 01/01/2017 13617 ECHO Transthorasic Realtime 2D W Doppler & Color Flow Completed Hosp 12/31/2016 68088 EKG, Interpretation Only Completed 11/16/2016 40183 Left Heart Cath. Incl S/I Coronaries, Angio S/I V Gram Completed If Done 11/16/2016 22909 EKG, Interpretation Only Completed 10/28/2016 94988 EKG Tracing & Interpretation Completed 09/21/2016 57058 Color Flow Doppler/Interp & Reprt Completed 09/21/2016 44173 Pulse Wave/Continuous-Interp.RPT Completed 09/21/2016 33002 Echocardiography, Transesophageal, Real Time W/Image 2D Completed W/W/O M-M 07/11/2016 68002 EKG Tracing & Interpretation Completed 05/11/2016 44897 Color Flow Doppler/Interp & Reprt Completed 05/11/2016 61652 Pulse Wave/Continuous-Interp.RPT Completed 05/11/2016 77351 Echocardiography, Transesophageal, Real Time W/Image 2D Completed W/W/O M-M 12/28/2015 94287 EKG Tracing & Interpretation Completed 12/04/2015 00237 ECHO Transthoracic, Real-Time 2D With Doppler And Color Completed Flow 11/10/2015 44069 EKG Tracing & Interpretation Completed 10/05/2015 96332 EKG Tracing & Interpretation Completed 08/04/2015 81082 Color Flow Doppler/Interp & Reprt Completed 08/04/2015 48167 Pulse Wave/Continuous-Interp.RPT Completed 08/04/2015 05505 Echocardiography, Transesophageal, Real Time W/Image 2D Completed W/W/O M-M 07/24/2015 64001 Stress Test Completed 07/24/2015 08970 Myocardial Perfusion Imaging Tomographic (Spect) Completed Multiple Studies 07/22/2015 90720 Holter Monitoring 24 HR New Completed 07/20/2015 71206 Holter Monitoring 24 HR New Completed 07/20/2015 61214 ECG Monitor/Recording W/Visual Superimposition Scanning Completed 07/20/2015 19152 Holter Monitor Review (24 hr)dr review & interp only Completed 07/16/2015 93367 ECHO Transthoracic, Real-Time 2D With Doppler And Color Completed Flow 07/13/2015 75323 EKG Tracing & Interpretation Completed 02/18/2015 43143 EKG Tracing & Interpretation Completed 02/13/2015 41960 EKG, Interpretation Only Completed 02/12/2015 91312 Echocardiogram, Limited Study Completed 02/11/2015 83810 EKG, Interpretation Only Completed 02/08/2015 56374 ECHO Transthorasic Realtime 2D W Doppler & Color Flow Completed Hosp 02/01/2015 77680 EKG, Interpretation Only Completed 12/11/2014 79423 EKG Tracing & Interpretation Completed 12/03/2014 22297 EKG, Interpretation Only Completed 11/29/2014 43162 EKG, Interpretation Only Completed 11/27/2014 63173 EKG, Interpretation Only Completed 11/26/2014 12854 EKG, Interpretation Only Completed 11/26/2014 37552 ECHO Transthorasic Realtime 2D W Doppler & Color Flow Completed Hosp 11/26/2014 52893 Left Heart Cath. Incl S/I Coronaries, Angio S/I V Gram Completed If Done 10/08/2014 41709 Holter Monitor Review (24 hr)dr review & interp only Completed 09/30/2014 49971 EKG Tracing & Interpretation Completed 09/10/2014 70811 ECHO Transthoracic, Real-Time 2D With Doppler And Color Completed Flow 02/12/2014 55875 Treadmill Interp/Report Only Completed 02/12/2014 90886 Stress Test Supervsn W/Out I/R Completed 01/23/2014 53573 Holter Monitor Review (24 hr)dr review & interp only Completed 01/17/2014 88775 ECHO Transthoracic, Real-Time 2D With Doppler And Color Completed Flow 01/16/2014 28275 EKG Tracing & Interpretation Completed 06/14/2013 09145 ECHO Transthoracic, Real-Time 2D With Doppler And Color Completed Flow 01/09/2013 Bone Mineral Density Test Completed 01/09/2013 Mammogram Completed 06/29/2010 65668 Tympanometry Completed 06/29/2010 45904 Myringotomy W/Tube, OS Completed Encounters Type Date Location Provider CPT E/M Dx Office Visit 06/28/2018 [facility] Of Piedad Villafuerte, N.P. 00921 I95.1 2:30p [employer] I25.9 I65.21 E78.5 R94.31 Office Visit 06/07/2018 10:00a [facility] Yvon Rosales, 13421 M35.3 Barrett Nur R79.82 R70.0 Z79.52 R76.0 D64.9 Office Visit 04/20/2018 9:45a [facility] [place] [address] R13.12 G47.00 I95.1 R53.1 [facility] [address] H04.123 R51 R13.12 Office Visit [facility]2018 [facility] [address]509 K92.2 Z98.890 Office Visit 04/03/2018 11:00a [facility] [place] [address] R13.12 D64.9 J44.9 I10 K92.2 Office Visit 03/23/2018 11:15a [facility] [place] [address] I65.21 R13.12 D64.9 I50.9 J44.9 I10 R00.0 M62.81 I25.9 Office Visit 03/20/2018 [facility] [place] [address] I65.21 R13.12 I10 G89.29 I73.9 E78.5 Office Visit 02/13/2018 1:10p [facility] Tina Pleitez, 80676 I25.118 MJefferson I35.2 I34.0 I73.9 Z01.810 I65.21 Office Visit 12/20/2017 2:45p [facility] Oniel Jorge, 78810 G31.84 Services Of Barrett Nur R06.02 Z79.899 Office Visit 09/12/2017 2:20p [facility] [address]874 I25.118 [facility] Boom Pleitez I35.2 I34.0 I73.9 R06.02 R94.31 Office Visit 03/17/2017 3:00p [facility] Of KATHRYN Larson 39567IGV I25.118 [facility] I35.2 I34.0 I73.9 Office Visit 03/15/2017 1:45p [facility] Oniel Jorge, 86435 G31.84 Services Of Barrett Nur Office Visit 01/18/2017 3:20p [facility] [address] I34.2 Boom Pleitez D64.9 I25.118 I35.2 I34.0 I44.7 Office Visit 01/04/2017 4:25p [facility] Of Justina Isaacs M.D. 68694 I50.9 [facility] Office Visit 01/04/2017 12:39p [facility], Twila 91655 D64.9 Hospitalists FEDE Shaikh I25.118 R74.8 I73.9 Office Visit 01/03/2017 12:38p [facility],[place] [address] D64.9 Hospitalists I25.118 R74.8 I73.9 Office Visit 01/03/2017 11:38a [facility] Of Haile Stroud, 26670 I50.9 [employer] AT [facility] , FACRodrigo, FSCAI I73.9 Office Visit 01/02/2017 12:38p [facility],[place] [address] D64.9 Hospitalists I25.118 R74.8 I73.9 Office Visit 01/01/2017 12:36p [facility],[place] [address] D64.9 Hospitalists R74.8 I25.118 I73.9 Office Visit 01/01/2017 11:36a [facility] Of Justina Isaacs M.D. 36819 R07.9 [employer] I50.9 R79.89 Office Visit 12/31/2016 12:26p [facility], Noemy Archibald, [place] [address] D64.9 Hospitalists D64.9 R74.8 R74.8 I25.118 I25.118 I73.9 I73.9 Office Visit 12/31/2016 11:35a [facility] Of Justina Isaacs M.D. 43522 R07.9 [employer] R79.89 Office Visit 10/28/2016 1:20p [facility] Jackietaybjakob Pleitez, 45312 I35.2 RodneyDBethany I34.0 I34.2 I44.7 Office Visit 09/14/2016 11:45a [facility] Oniel Hernandes 31988 G31.84 Boom Jorge Office Visit 09/05/2016 2:30p [facility] Of KATHRYN Larson 77509KUY D64.9 [employer] I35.0 I34.0 Office Visit 08/30/2016 2:50p [facility], Pieter Richard, 82076 D64.89 Hospitalists Boom R51 I47.2 J44.9 Office Visit 07/11/2016 1:00p [facility] Jackietaybjakob Pleitez, 47598 I35.0 Boom I35.1 I44.7 I34.0 Office Visit 05/13/2016 1:40p [facility] Of Tina Hernandes 37179 I35.0 Barrett Pleitez M.D. I35.1 I44.7 I34.0 Office Visit 03/31/2016 2:00p [facility] Of KATHRYN Meuller 87797 I44.7 I34.0 I35.0 Office Visit 02/09/2016 11:00a [facility] KATHRYN Russell 86345ZWM F01.50 [employer] I34.0 I35.0 I44.7 R06.02 Office Visit 01/26/2016 2:00p [facility] Oniel Jorge, 66373 F01.50 Services Of Barrett Nur Office Visit 12/28/2015 1:20p [facility] Qutaybeh S. 29624 I44.7 Boom Pleitez I34.0 R06.02 I35.0 I35.1 I10 Office Visit 11/10/2015 12:00p [facility] Qutaybeh S. Maghaydah, 23763 I10 M.DBethany I44.7 I34.0 R06.02 I35.0 I35.1 Office Visit 10/05/2015 10:40a [facility] Qutaybeh S. Maghaydah, 75480 I10 M.D. I44.7 I34.0 R06.02 I35.0 Office Visit 09/11/2015 3:20p [facility] Qutaybeh S. Maghaydah, 61855 I35.1 M.D. I10 I44.7 I34.0 R06.02 Office Visit 07/29/2015 2:30p [facility] Of [facility] KATHRYN Larson 58504 424.1 401.1 780.4 414.01 426.3 Office Visit 07/13/2015 10:20a [facility] Qutaybeh S. Magleónydah, 55223 414.01 M.DBethany 401.1 786.50 780.4 794.31 426.3 Office Visit 03/13/2015 9:49a [facility] [place], [address] 585.9 Assoc,pc Hospitalists M.DBethany 787.91 458.9 285.9 Office Visit 03/12/2015 9:48a [facility],pc Jose Mendez, 00966 787.91 Hospitalists M.DBethany 458.9 585.9 285.9 Office Visit 02/27/2015 9:30a [facility] Of Xu Valle, 43265 414.01 Barrett Nur 427.1 Office Visit 02/18/2015 4:00p [facility] Qutaybeh S. Magleónydah, 98077 427.1 M.D. 414.9 401.1 276.8 Office Visit 02/14/2015 1:45p [facility],pc Gayathri Brice, 84057 427.1 Hospitalists D.O. 428.0 507.0 285.9 Office Visit 02/13/2015 1:45p [facility],pc Gayathri Brice, 09413 427.1 Hospitalists D.O. 428.0 507.0 285.9 Office Visit 02/13/2015 9:26a [facility] Saud Balbuena, 63142 427.1 M.D. Office Visit 02/12/2015 1:44p [facility],pc Gayathri Brice, 69127 427.1 Hospitalists D.O. 428.0 507.0 285.9 Office Visit 02/12/2015 9:59a [facility] Of Justina Isaacs M.D. 97295 414.9 [employer]her 427.1 Office Visit 02/11/2015 1:44p [facility], Gayathri Narvaez, 43475 427.1 Hospitalists D.O. 428.0 507.0 285.9 Office Visit 02/11/2015 8:38a [facility] Saud Balbuena M.D. 18215 427.1 414.9 Office Visit 02/10/2015 12:10p [facility] S. Maik, 02171 794.31 MBethanyDBethany 401.1 Office Visit 02/10/2015 1:44p [facility], Gayathri Narvaez, 75675 427.1 Hospitalists D.O. 428.0 507.0 285.9 Office Visit 02/09/2015 11:20a [facility] Qutaybeh S. Maghaydah, 06468 794.31 MBethanyDBethany 427.1 414.9 Office Visit 02/09/2015 1:43p [facility],pc Gayathri Brice, 77372 427.1 Hospitalists D.O. 428.0 507.0 780.09 Office Visit 02/08/2015 1:43p [facility],pc Ragini Weathers, 26505 427.1 Hospitalists MBethanyDBethany 428.0 507.0 780.09 Office Visit 02/08/2015 10:51a [facility] Alan Martinez, 23648 427.1 Boom, YOUSIF, [facility] Office Visit 02/07/2015 1:42p [facility], Ragini Weathers, 58664 427.1 Hospitalists MJefferson 428.0 507.0 Office Visit 02/07/2015 10:39a [facility] Of Alan Martinez, 43381 427.1 Barrett Nur, [facility] Office Visit 02/06/2015 11:01a [facility] Tina Hernandes 97183 427.1 Boom Pleitez 414.9 794.31 Office Visit 02/06/2015 1:42p [facility], Ragini Weathers, 90432 427.1 Hospitalists MJefferson 428.0 507.0 Office Visit 02/06/2015 4:32p [facility] [place] [address] 507.0 Services Of [facility] 511.9 Office Visit 02/05/2015 3:32p [facility] Of Justina Isaacs M.D. 25317 427.1 [employer]her 414.9 Office Visit 02/05/2015 1:42p [facility], Ragini Weathers, 59660 427.1 Hospitalists MJefferson 428.0 507.0 780.60 Office Visit 02/05/2015 4:29p [facility] [place] [address] 507.0 Services Of [facility] 793.19 511.9 780.97 Office Visit 02/04/2015 1:41p [facility], Ragini Weathers, 67061 427.1 Hospitalists MBethanyDBethany 780.60 507.0 428.0 Office Visit 02/04/2015 9:24a [facility] Tina SBethany Pleitez 25021 276.8 MJefferson 427.1 414.9 Office Visit 02/03/2015 8:58a [facility] Of Xu Valle, 74870 427.1 [employer]her MBethanyDBtehany 414.9 Office Visit 02/03/2015 1:40p [facility], Ragini Weathers, 86131 427.1 Hospitalists Boom 507.0 780.60 428.0 Office Visit 02/02/2015 1:40p [facility], Gayathri Narvaez, 35832 427.1 Hospitalists D.O. 780.60 507.0 428.0 Office Visit 02/01/2015 2:54p [facility] Of Justina Isaacs M.D. 15417 427.1 [employer]her 414.9 428.0 Office Visit 02/01/2015 12:10p [facility], Gayathri Narvaez, 24865 427.1 Hospitalists D.O. 428.0 285.9 780.60 Office Visit 01/31/2015 2:45p [facility] Of Justina Isaacs M.D. 52343 427.1 [employer] 786.59 413.9 786.09 Office Visit 01/31/2015 1:39p [facility] Radha IBANEZ, 13468 427.1 Assoc, Hospitalmadan Nur 440.9 272.4 V12.59 Office Visit 12/11/2014 3:20p [facility] Greta Pleitez, 66426 786.59 M.DBethany 786.05 414.00 410.70 Office Visit 12/04/2014 2:39p [facility], Oniel Ingram 34926 410.70 Hospitalists Boom Greenberg 518.4 458.0 414.00 Office Visit 12/03/2014 10:59a [facility] Greta Pleitez, 79220 414.9 M.DBethany 794.31 786.59 786.05 Office Visit 12/03/2014 11:03a [facility], Oniel Ingram 86591 410.70 Hospitalists Boom Greenberg 518.4 458.0 414.00 Office Visit 12/02/2014 11:03a [facility], Oniel Ingram 23939 410.70 Hospitalists Boom Greenberg 518.4 458.0 414.00 Office Visit 11/29/2014 7:51p [facility], Jose Mendez, 38043 428.0 Hospitalists Boom 426.3 401.9 Office Visit 11/28/2014 7:51p [facility], 10270 428.0 Hospitalists M.D. 426.3 401.9 Office Visit 11/27/2014 7:50p [facility], Jose Fillmore, 79202 428.0 Hospitalists M.D. 426.3 401.9 311 Office Visit 11/27/2014 1:52p [facility] Vishalfransico FragaBethany Alarcon, 58877 410.70 M.D. Office Visit 11/26/2014 7:49p [facility], 70177 428.0 Hospitalists M.D. 426.3 401.9 311 Office Visit 11/05/2014 2:00p [facility] KATHRYN Larson 03767 785.1 786.05 458.8 Office Visit 09/30/2014 2:00p [facility] Qutaybeh S. Maghaydah, 69607 424.0 M.D. 785.1 785.0 780.4 458.8 Office Visit 02/24/2014 2:20p [facility] Qutaybeh S. Maghaydah, 15265 785.1 M.D. 785.0 786.05 272.4 424.0 397.0 Office Visit 02/12/2014 10:30a [facility] Qutaybeh S. Maghaydah, 72181 785.1 M.D. 785.0 Office Visit 01/16/2014 4:00p [facility] Qutaybeh S. Maghaydah, 44623 401.9 M.D. 785.2 785.1 785.0 272.4 794.31 780.4 786.05 Office Visit 01/31/2013 2:20p [facility] Nayana Gong M.D. 86490 564.1 - [place] 281.1 Office Visit 01/17/2013 2:40p [facility] Nayana Gong M.D. 99654 564.1 - [place] 733.90 281.1 Office Visit 01/03/2013 2:00p [facility] Nayana Gogn M.D. 53875 564.1 - [place] 781.91 783.21 272.4 401.9 780.79 V76.19 Office Visit 04/07/2011 2:20p [facility] Enoc Endo, 56671 795.79 Of [facility] Flakito.Anne 471.9 Office Visit 02/15/2011 2:20p [facility] Enoc Endo, 71817 715.94 Of [facility] Flakito.Anne 796.4 794.8 Plan of Care Future Appointment(s):07/05/2018 2:30 pm - Traveling ECHO 1 at [facility]07/18/2018 3:20 pm - Yvon Rosales M.D. at [facility]08/27/2018 3:00 pm - Tina Pleitez M.D. at [facility]12/25/2018 2:45 pm - Oniel Jorge M.D. at [facility]06/28/2018 - Piedad Villafuerte, N.P.I95.1 Orthostatic hypotensionRecommendations:Will discuss possbility of midodrine or florinef ( steroid) with Dr. Pleitez Will consider stoppingamiodarone.I25.9 Chronic ischemic heart disease, sgxzgrbzarvK49.21 Occlusion and stenosis of right carotid arteryRecommendations:Continue f/u with Kiah as scheduled.E78.5 Hyperlipidemia, nqffybskftjR54.31 Abnormal electrocardiogram [ECG] [EKG]New Orders:EchocardiogramFollow up:2 mo OV QSM after testing.
--- OUTSIDE RECORDS SUMMARY | 2018-07-06 15:34 | XMS REPORT ---
:1935 External Reference #:[id number] Author Organization [facility] Address [address] [place] [address] Phone [phone] Care Team Providers Name Role Phone Grecia Anderson MD Primary Care Physician Unavailable Payers Type Date Identification Numbers Payment Provider Subscriber Medicare Primary Effective: Policy Number: Medicare Sirisha Hernandez Matt 2001 [id number] PayID: [id number] [address] [place] [address] Medigap Part B Effective: Policy Number: [employer] Sirisha Hernandez Matt 2016 [id number] Group Number: [id number] [address] PayID: [id number] [place] [address] Problems Date Description Provider Status Onset: 01/10/2013 [...] Status Lives With Spouse Occupation Retired Occupation [employer] Cigarette Use Quit 25 Years Ago Cigarette [...] Mikki Calcium s tube every [place], day [employer] Clopidogrel 03/21 Active Tablets 75mg 30tab 1 via peg Qutaybeh Bisulfate s tube every S. day Boom Pleitez Gabapentin 03/21 Active Tablets 600mg 90tab take one s tablet via [place], peg tube [employer] once a day Lexapro 03/21 Active Tablets 10mg 30tab 1 via peg s tube every [place], day [employer] Lidoderm 03/21 Active Patches 5% 90uni 1 apply to ts affected [place], area 12 [employer] hours on, 12 hours off Nitrostat 03/21 Active Tablets 0.4mg 25tab one sl q5min Sub s up to 3 [place], doses as [employer] needed Polyvinyl 03/21 Active Solution 1.4% 1 drop OU q Alcohol 4hrs prn [place], [employer] Tramadol HCL 03/21 Active Tablets 50mg 30tab give 25mg s via peg tube [place], Q 8 hrs prn [employer] Compression 02/22 Active Misc 1Pair knee high Qutaybeh Stockings /2015 closed toe S. light Maghaydah compression , M.D. Compression 11/05 Active Misc 1Pair thigh high I95.89 Qutaybeh Stockings /2013 closed toe S. moderate Maghaydah compression , M.D. Oxygen Active Misc 3 l nc at Unknown /0000 bedtime or prn during day Acetaminophen Active Tablets 500mg Unknown /0000 Magnesium Oxide Active Capsules 400mg 1 by mouth Unknown /0000 every day Acidophilus Active Tablets 1 by mouth Unknown /0000 every day B12 Active Tablets Unknown /0000 Melatonin Active Capsules 3mg Unknown / Amiodarone HCL Active Tablets 100mg 1 by mouth Unknown every day Clonazepam Active Tablets 0.5mg Unknown / Albuterol 03/21 Hx Nebulizer (2.5mg/3M 75ml 1 vial via R06.02 L) 0.083% [facility] hrs as [employer] 06/07 needed for /2017 SOB Aspirin Adult 03/21 Hx Chewtabs 81mg 90uni 1 tab via [facility] Low Strength ts peg tube qd [facility], - [employer] 06/07 Omeprazole 03/21 Hx Capsules 20mg 30cap [address] s tube every [facility], - day [employer] 06/07 Acetaminophen 03/21 Hx Tablets 325mg 60tab 2 tablets s peg tube [facility], - every 6 [employer] 07/ hours as needed Plavix 02/13 Hx Tablets 75mg 30tab 1 by mouth Qutaybeh s every day S. - Maghaydah 03/21 [...] (On Hold Per Ania, - DR Anderson) M.Rajesh. 09/13 Isosorbide 12/11 Hx Tablets ER 120mg 30tab one po qd Qutaybeh Mononitrate ER 24HR s S. - Maghaydah 12/11 , M.D. Isosorbide 12/11 Hx Tablets ER 60mg 30tab 1 by mouth Qutaybeh Mononitrate ER 24HR s every day S. - Maghaydah 02/17 , M.D. Fludrocortisone 11/05 Hx Tablets 0.1mg 60tab 1 by mouth 458.8 Qutaybeh Acetate s twice a day S. - Maghaydah 02/17 , M.D. Hyoscyamine 01/17 Hx Tablets 0.125mg 90tab 1 -2 tab po 564.1 Nayana Sulfate s every 4 Gong, - hours or M.D. 01/16 after bm, max 12 tab in 24 hour 3ML Luer-Saleem 01/16 Hx Misc 21G X 1" 15uni im b12 [place] Syringe G 3 ML ts Pachikara X 1" - , M.D. 01/16 Cyanocobalamin 01/15 Hx Solution 1000mcg/M 30ml 1 ml L intramuscula [place] Gong once per M.D. 01/16 day 5 then once per week for 8 weeks, then recheck b12 level Clonazepam Hx Tablets 0.5mg 60tab 2 tablet po Unknown /0000 s hs - 03/21 Atenolol Hx Tablets 50mg 180ta 1 po bid Unknown / bs - 01/16 Simvastatin Hx Tablets 40mg 90tab 1 po qhs Unknown /0000 s - 01/03 Singulair Hx Tablets 10mg 30tab 1 po qd Unknown /0000 s - 01/03 Lisinopril Hx Tablets 20mg 90tab 1 po qd Unknown / s - 01/03 Sertraline HCL Hx Tablets 50mg 90tab 1 po qd Unknown /0000 s - 01/03 Hydrocodone-Acet Hx Tablets 5/500mg 100ta 1-2 po qid Unknown aminophen / bs prn - 01/03 Budesonide Hx Powder Unknown /0000 - 01/03 Escitalopram Hx Tablets 20mg 30tab 1 po qd Unknown Oxalate /0000 s - 02/17 Amlodipine Hx Tablets 5mg 100ta 1 po qd Unknown Besylate /0000 bs - 01/16 Pravastatin 00 Hx Tablets 40mg 90tab 1 tablet Unknown Sodium /0000 s daily at - bedtime 12/10 Oxybutynin Hx Tablets ER 10mg 90tab 1 po qd Unknown Chloride ER /0000 24HR s - 12/10 Pantoprazole / Hx Tablets DR 40mg 30tab 1 po qd Unknown Sodium /0000 s - 01/16 Loperamide HCL Hx Tablets 2mg 60tab 1 tab as Unknown /0000 s needed - 01/16 Bismuth Hx Chewtabs 262mg 56uni 1 tab po qd Unknown Subsalicylate /0000 ts - 01/16 Acidophilus 00/00 Hx Tablets 1 po qd Unknown /0000 - 12/10 Vitamin D 00/ Hx Capsules 1000Unit 30cap 1 po qd Unknown /0000 s - 01/16 Tylenol 8 Hour 00/ Hx Tablets ER 650mg 1tabs 1 by mouth Unknown Arthritis Pain /0000 po up to - three times 03/21 /2017 Diltiazem HCL 00/ Hx Tablets 30mg 180ta 1 po qd Unknown /0000 bs - 09/30 1 00/00 Hx Capsules 2mg 30cap q6hr as Unknown /0000 s needed - 10/04 Magnesium Oxide Hx Capsules 400mg 100ca 1 po qd Unknown /0000 ps - 03/21 Acidophilus 00/ Hx Tablets 1 tablet po Unknown Probiotic /0000 daily - 03/21 Metoprolol Hx Tablets ER 25mg 30tab 1/2 mouth Unknown Succinate ER /0000 24HR s every day - 11/10 Nitro-bid Hx Ointment 2% 15g apply small Unknown /0000 amount to - cgest wall 12/11 every hours as directed Atorvastatin 00 Hx Tablets 40mg 90tab 1 by mouth Unknown Calcium /0000 s every day - qhs 03/21 Clopidogrel 00 Hx Tablets 75mg 90tab 1 by mouth Unknown Bisulfate /0000 s every day - 01/17 Nitrostat 0000 Hx Tablets 0.4mg 25tab one sl q5min Qutaybeh /0000 Sub s up to 3 S. - doses as Maghaydah 03/21 needed , Boom /2017 Ferrous Sulfate 0000 Hx Tablets 325(65Fe) 1 by mouth Unknown /0000 mg bid - 09/10 Aspirin Ec [address] 81mg 1 tablet Unknown Lo-Dose /0000 daily. - 10/27 Pantoprazole 00/[address] 40mg 1 by mouth Unknown Sodium /0000 every other - day (not 11/20 taking) Vitamin B-12 00 Hx 1000mcg 1 po qd Unknown /0000 - 10/04 Amiodarone HCL 00 Hx Tablets 200mg 1/2 by Unknown /0000 [...] Hx Tablets 8.6mg 2 po qd Unknown /0000 - 02/07 Erythromycin Hx Gel 0.5% apply a thin Unknown /0000 lyer to the - affected 11/06 areas at x 3 weeks Poly-Iron 150 Hx Capsules 150mg take one Unknown /0000 capsule by - mouth bid 02/07 ( currently taking) Escitalopram Hx Tablets 10mg 1 by mouth Unknown Oxalate /0000 every day - 03/21 Polyethylene 00/00 Hx Cap 1 cap po Unknown Glycol /0000 daily PM as - needed 03/21 Ipratropium Hx Solution 0.06% 2 sprays in Unknown [place] /0000 each nostril - 4 times a needed Ferrous Sulfate Hx Tablets DR 325(65Fe) [...] s tablet by S. - mouth every Maik 12/19 Boom quiroga /2017 Prednisone 00 Hx Tablets 5mg Yvon /0000 [place] Rosales M.D. 06/07 Medications Administered in Office Medication [...] Millicuries Vital Signs Date Vital Result Comment 06/07/2018 Height 60.5 inches 5'0.50" Weight 112.00 [...] Nucleated Red Blood Cells % 0 4 Laboratory test finding 09/15/2017 Alt (SGPT) 23 U/L 7-52 Ast (Sgot) 32 U/L 13-39 TSH (Thyroid Stim Horm) 1.52 mcIU/mL 0.34-5.60 Basic Metabolic Panel 09/15/2017 Sodium 141 mmol/L 133-145 Chloride 106 mmol/L 101-111 Co2 Carbon Dioxide 30 mmol/L 22-32 Glucose 91 mg/dL 70-100 Blood Urea Nitrogen 35 mg/dL High 6-24 Creatinine 1.65 mg/dL High 0.51-0.95 BUN/Creatinine Ratio 21.2 High 8-20 Calcium 9.3 mg/dL 8.6-10.3 Egfr Non- 29.9 >60 Egfr 38.4 >60 11 Potassium 5.1 mmol/L High 3.5-5.0 Anion Gap 5 mmol/L 2-11 Iron & Iron Binding Capacity 05/25/2017 Iron [...] Non- 30.6 >60 Egfr 39.3 >60 13 Basic Metabolic Panel 11/14/2016 Sodium 139 mmol/L 133-145 Potassium 4.6 mmol/L 3.5-5.0 Chloride 106 mmol/L 101-111 Co2 Carbon Dioxide 29 mmol/L 22-32 Anion Gap 4 mmol/L 2-11 Glucose 75 mg/dL 70-100 Blood Urea Nitrogen 29 mg/dL High 6-24 Creatinine 1.73 mg/dL High 0.51-0.95 BUN/Creatinine Ratio 16.8 8-20 Calcium 8.8 mg/dL 8.6-10.3 Egfr Non- 28.3 >60 Egfr 36.4 >60 14 Inr/Protime 11/14/2016 Inr 0.98 0.89-1.11 CBC Auto Diff 11/14/2016 White Blood Count [...] 0-2 Nucleated Red Blood Cells % 0 Cath Panel 11/14/2016 Partial Thrombo Time PTT 30.7 seconds 26.0-36.3 Basic Metabolic Panel 09/21/2016 Sodium 137 mmol/L 133-145 Potassium 4.1 mmol/L 3.5-5.0 Chloride 106 mmol/L 101-111 Co2 Carbon Dioxide 27 mmol/L 22-32 Anion Gap 4 mmol/L 2-11 Glucose 83 mg/dL 70-100 Blood Urea Nitrogen 30 mg/dL High 6-24 Creatinine 1.61 mg/dL High 0.51-0.95 BUN/Creatinine Ratio 18.6 8-20 Calcium 8.6 mg/dL 8.6-10.3 Egfr Non- 30.8 >60 Egfr 39.6 >60 15 CBC Auto Diff 09/21/2016 White Blood Count [...] 0-2 Nucleated Red Blood Cells % 0.1 Laboratory test finding 08/26/2016 Creatine Kinase(CK) 69 U/L 10-223 C Reactive Protein 10.40 mg/L High < 5.00 16 Vitamin B12 1285 pg/mL High 180-914 17 Comp Metabolic Panel 08/26/2016 Sodium 137 mmol/L [...] Egfr Non- 32.4 >60 Egfr 41.7 >60 18 CBC Auto Diff 08/26/2016 White Blood Count [...] Blood Cells % 0 Laboratory test finding 02/02/2016 Homocysteine 14 mcmol/L [...] Blood Cells % 0.1 CBC Auto Diff 09/04/2015 White Blood Count [...] 0-2 Nucleated Red Blood Cells % 0.2 Comp Metabolic Panel 09/04/2015 Sodium 135 mmol/L [...] Non- 31.1 >60 Egfr 40.0 >60 27 Laboratory test finding 09/04/2015 Magnesium 1.9 mg/dL [...] Magnesium 2.0 mg/dL 1.9-2.7 Ferritin 298.2 ng/mL 11-307 CBC Auto Diff 05/20/2015 White Blood Count [...] test finding 05/20/2015 Ferritin 777.6 ng/mL High 11-307 Basic Metabolic Panel 05/08/2015 Sodium 138 mmol/L [...] 0-2 Nucleated Red Blood Cells % 0.1 Lipid Profile (Trig/Chol/HDL) 01/09/2013 Triglycerides 118 mg/dL 40-200 Cholesterol 174 mg/dL Less than 200 HDL Cholesterol 62 mg/dL High 40-60 50 Cholesterol/HDL Ratio 2.8 Average 1-4.44 LDL Cholesterol 88.4 mg/dL Less Than 100 51 Comp Metabolic Panel 01/09/2013 Sodium 135 mmol/L [...] Egfr Non- 33.8 >60 Egfr 43.4 >60 52 Laboratory test finding 01/09/2013 TSH (Thyroid Stimulating 1.40 miu/mL 0.34-5.60 53 Horm) CBC Auto Diff 01/09/2013 White Blood [...] 01/09/2013 Vitamin B12 177 pg/mL Low 180-914 54 Folate 12.3 ng/mL 2-16 55 Vitamin D, 25 Hydroxy 01/09/2013 25-Hydroxy [...] <15 (or dialysis) 4 Giant Platelets 5 [id number] "PLEASE ALSO FURNISH RESULTS TO DR. Blanche [...] 5 Kidney failure <15 (or dialysis) 16 Acute inflammation: >10.00 17 Normal Range 180 to 914 Indeterminate Range 145 to 180 Deficient Range <145 18 Because ethnic data is not always [...] 5 Kidney failure <15 (or dialysis) 19 The homocysteine concentration is elevated in [...] REFERENCE VALUE <=13 (Fasting) Test Performed by: [place] [address] Studio Coordinator: Sylvain Sarkar II, M.D., Ph.D. 20 In this sample, the concentration of methylmalonic acid (MMA) was minimally elevated. As the upper limit of the reference range varies in different laboratories from 0.4 to 0.6 nmol/mL. This finding could be considered normal, especially if the patient does not show other signs of vitamin B12 deficiency. Test Performed by: [place] [address] Studio Coordinator: Sylvain Sarkar II, M.D., Ph.D. 21 Normal [...] 0.03 ng/mL Not supportive of diagnosis of DC 0.03 - 0.50 ng/mL Indeterminate: suggest serial studies if clinically indicated. Greater than 0.5 ng/mL Consistent with diagnosis of DC 24 Because ethnic data is not always [...] Reflex test not required. Test Performed by: [address] [address] Studio Coordinator: Sylvain Sarkar II, M.D., Ph.D. 36 SEE RESULT BELOW Name: SIRISHA DOTSON : [address]: Juan Aguilar MD Acct: [id number] Unit: [id number] AGE: 79 Location: [facility] Re05/12/15 SEX: F Status: REG REF SPEC: [id number] SAMANTHA: 05/08/15-999 [facility] DR: Juan Aguilar MD REQ: [id number] RECD: 05/12/15 STATUS: ASHLEIGH CHACON DR: Grecia Pleitez MD _ SOURCE: STOOL SPDESC: ORDERED: Hemoccult Procedure Result Verified Site Stool Specimen Description Final 05/12/15- 1717 ML Test not performed Stool Occult Blood Final 05/12/15- 1717 ML Stool Occult Blood Positive * ML - MAIN LAB ([facility]) . END OF REPORT * ML=Testing performed at Main Lab DEPARTMENT OF PATHOLOGY, [address] [place] [address] Mian Luna M.D. Director [facility] # [id number] 37 SEE RESULT BELOW Name: SIRISHA DOTSON : [address]: Juan Aguilar MD Acct: [id number] Unit: [id number] AGE: 79 Location: [facility] Re05/12/15 SEX: F Status: REG REF SPEC: [id number] SAMANTHA: 05/07/15-999 [facility] DR: Juan Aguilar MD REQ: [id number] RECD: 05/12/15-130 STATUS: ASHLEIGH CHACON DR: Grecia Pleitez MD _ SOURCE: STOOL SPDESC: ORDERED: Hemoccult Procedure Result Verified Site Stool Specimen Description Final 05/12/15- 1716 ML Test not performed Stool Occult Blood Final 05/12/15- 1716 ML Stool Occult Blood Positive * ML - MAIN LAB ([facility]) . END OF REPORT * ML=Testing performed at Main Lab DEPARTMENT OF PATHOLOGY, [address] [place] [address] Mian Luna M.D. Director [facility] # [id number] 38 SEE RESULT BELOW Name: SIRISHA DOTSON : [address]: Juan Aguilar MD Acct: [id number] Unit: [id number] AGE: 79 Location: [facility] Re05/12/15 SEX: F Status: REG REF SPEC: [id number] SAMANTHA: 05/06/15-[address]: Juan Aguilar MD REQ: [id number] RECD: 05/12/15 STATUS: ASHLEIGH CHACON DR: Grecia Pleitez MD _ SOURCE: STOOL SPDESC: ORDERED: Hemoccult Procedure Result Verified Site Stool Specimen Description Final 05/12/15- 1715 ML Test not performed Stool Occult Blood Final 05/12/15- 1715 ML Stool Occult Blood Positive * ML - MAIN LAB ([facility]) . END OF REPORT * ML=Testing performed at Main Lab DEPARTMENT OF PATHOLOGY, [address] [place] [address] Mian Luna M.D. Director [facility] # [id number] 39 Because ethnic data is not always [...] protein on serum electrophoresis. Test Performed by: [place] [address] Studio Coordinator: Sylvain Sarkar II, M.D., Ph.D. 41 Test Performed by: [place] [address] Studio Coordinator: Sylvain Sarkar II, M.D., Ph.D. 42 Because [...] 5 Kidney failure <15 (or dialysis) 50 HDL Interpretation: Undesirable: High Risk: Less than 40 MG/DL Desirable: Low Risk: Greater than 60 MG/DL 51 LDL Interpretation: Low Risk Optimal Level: LDL Less than 100 MG/DL Near or Above Optimal: LDL 100-129 MG/DL Borderline High Risk: LDL 130-159 MG/DL High Risk: LDL 160-189 MG/DL Very High Risk: LDL Greater than 189 MG/DL 52 Because ethnic data is not always readily [...] 15-29 5 Kidney failure <15 (or dialysis) 53 PT IS FASTING 54 PT IS FASTING 55 PT IS FASTING 56 -- REFERENCE VALUE -- 25-HYDROXY D TOTAL (D2+D3) Optimum levels in the normal population are 25-80 Test Performed by: [address] [address] Studio Coordinator: Tang Ochoa III, M.D. Procedures Date CPT Code Description Status 02/13/2018 62898 EKG Tracing & Interpretation Completed 10/12/2017 03982 ECHO Transthoracic, Real-Time 2D With Doppler And Color Completed Flow 10/12/2017 40273 ECHO Transthoracic, Real-Time 2D With Doppler And Color Completed Flow 09/12/2017 19669 EKG Tracing & Interpretation Completed 01/18/2017 94762 EKG Tracing & Interpretation Completed 01/04/2017 04254 Echocardiogram, Limited Study Completed 01/01/2017 02213 ECHO Transthorasic Realtime 2D W Doppler & Color Flow Completed Hosp 12/31/2016 43367 EKG, Interpretation Only Completed 11/16/2016 16251 Left Heart Cath. Incl S/I Coronaries, Angio S/I V Gram Completed If Done 11/16/2016 20496 EKG, Interpretation Only Completed 10/28/2016 90239 EKG Tracing & Interpretation Completed 09/21/2016 09928 Color Flow Doppler/Interp & Reprt Completed 09/21/2016 43625 Pulse Wave/Continuous-Interp.RPT Completed 09/21/2016 09871 Echocardiography, Transesophageal, Real Time W/Image 2D Completed W/W/O M-M 07/11/2016 55984 EKG Tracing & Interpretation Completed 05/11/2016 85432 Color Flow Doppler/Interp & Reprt Completed 05/11/2016 77260 Pulse Wave/Continuous-Interp.RPT Completed 05/11/2016 94397 Echocardiography, Transesophageal, Real Time W/Image 2D Completed W/W/O M-M 12/28/2015 05195 EKG Tracing & Interpretation Completed 12/04/2015 21074 ECHO Transthoracic, Real-Time 2D With Doppler And Color Completed Flow 11/10/2015 02721 EKG Tracing & Interpretation Completed 10/05/2015 89446 EKG Tracing & Interpretation Completed 08/04/2015 92470 Color Flow Doppler/Interp & Reprt Completed 08/04/2015 43129 Pulse Wave/Continuous-Interp.RPT Completed 08/04/2015 80435 Echocardiography, Transesophageal, Real Time W/Image 2D Completed W/W/O M-M 07/24/2015 97828 Stress Test Completed 07/24/2015 66239 Myocardial Perfusion Imaging Tomographic (Spect) Completed Multiple Studies 07/22/2015 03472 Holter Monitoring 24 HR New Completed 07/20/2015 45676 Holter Monitoring 24 HR New Completed 07/20/2015 37990 ECG Monitor/Recording W/Visual Superimposition Scanning Completed 07/20/2015 70679 Holter Monitor Review (24 hr)dr review & interp only Completed 07/16/2015 59935 ECHO Transthoracic, Real-Time 2D With Doppler And Color Completed Flow 07/13/2015 16894 EKG Tracing & Interpretation Completed 02/18/2015 17325 EKG Tracing & Interpretation Completed 02/13/2015 83162 EKG, Interpretation Only Completed 02/12/2015 83231 Echocardiogram, Limited Study Completed 02/11/2015 25732 EKG, Interpretation Only Completed 02/08/2015 96125 ECHO Transthorasic Realtime 2D W Doppler & Color Flow Completed Hosp 02/01/2015 38708 EKG, Interpretation Only Completed 12/11/2014 95310 EKG Tracing & Interpretation Completed 12/03/2014 16806 EKG, Interpretation Only Completed 11/29/2014 92719 EKG, Interpretation Only Completed 11/27/2014 21805 EKG, Interpretation Only Completed 11/26/2014 97049 EKG, Interpretation Only Completed 11/26/2014 77745 ECHO Transthorasic Realtime 2D W Doppler & Color Flow Completed Hosp 11/26/2014 86066 Left Heart Cath. Incl S/I Coronaries, Angio S/I V Gram Completed If Done 10/08/2014 10035 Holter Monitor Review (24 hr) review & interp only Completed 09/30/2014 77472 EKG Tracing & Interpretation Completed 09/10/2014 23896 ECHO Transthoracic, Real-Time 2D With Doppler And Color Completed Flow 02/12/2014 27791 Treadmill Interp/Report Only Completed 02/12/2014 84498 Stress Test Supervsn W/Out I/R Completed 01/23/2014 91121 Holter Monitor Review (24 hr) review & interp only Completed 01/17/2014 21543 ECHO Transthoracic, Real-Time 2D With Doppler And Color Completed Flow 01/16/2014 58618 EKG Tracing & Interpretation Completed 06/14/2013 01249 ECHO Transthoracic, Real-Time 2D With Doppler And Color Completed Flow 01/09/2013 Bone Mineral Density Test Completed 01/09/2013 Mammogram Completed 06/29/2010 41128 Tympanometry Completed 06/29/2010 80682 Myringotomy W/Tube, OS Completed Encounters Type Date Location Provider CPT E/M Dx Office Visit 04/20/2018 9:45a [place] [address] R13.12 G47.00 I95.1 R53.1 Office Visit 04/16/2018 10:15a Amanda Ferrara, [employer] 69940 H04.123 R51 R13.12 Office Visit 04/11/2018 8:00a Amanda Ferrara, [employer] 67490 K92.2 Z98.890 Office Visit 04/03/2018 11:00a [place] [address] R13.12 D64.9 J44.9 I10 K92.2 Office Visit 03/23/2018 11:15a [place] [address] I65.21 R13.12 D64.9 I50.9 J44.9 I10 R00.0 M62.81 I25.9 Office Visit 03/20/2018 8:45a Amanda Ferrara, [employer] 85258 I65.21 R13.12 I10 G89.29 I73.9 E78.5 Office Visit 02/13/2018 1:10p [facility] Tina Pleitez, 24971 I25.118 Boom I35.2 I34.0 I73.9 Z01.810 I65.21 Office Visit 12/20/2017 2:45p [facility] Oniel Jorge, 91677 G31.84 Services Of Barrett Nur R06.02 Z79.899 Office Visit 09/12/2017 2:20p [facility] Of Tina Hernandes 49902 I25.118 Barrett Pleitez M.D. I35.2 I34.0 I73.9 R06.02 R94.31 Office Visit 03/17/2017 3:00p [facility] Of ADAMA Larson 47345AUE I25.118 Barrett I35.2 I34.0 I73.9 Office Visit 03/15/2017 1:45p [facility] Oniel Jorge, 56664 G31.84 Services Of Barrett Nur Office Visit 01/18/2017 3:20p [facility] Tina Hernandes 50803 I34.2 Boom Pleitez D64.9 I25.118 I35.2 I34.0 I44.7 Office Visit 01/04/2017 4:25p [facility] Of Justina Isaacs M.D. 21102 I50.9 [facility] Office Visit 01/04/2017 12:39p [facility] Twila 82732 D64.9 Hospitalists Hawa, FEDE I25.118 R74.8 I73.9 Office Visit 01/03/2017 12:38p [facility] Noemy Archibald, FEDE 43020 D64.9 Hospitalists I25.118 R74.8 I73.9 Office Visit 01/03/2017 11:38a [facility] Of Haile Stroud, 07078 I50.9 [employer] [place] [facility] [place] FACR[place], FSCAI I73.9 Office Visit 01/02/2017 12:38p [facility], Noemy Archibald, FEDE 97190 D64.9 Hospitalists I25.118 R74.8 I73.9 Office Visit 01/01/2017 12:36p [facility], Noemy Archibald, [employer] 30637 D64.9 Hospitalists R74.8 I25.118 I73.9 Office Visit 01/01/2017 11:36a [facility] Of Justina Isaacs M.D. 27391 R07.9 [facility] I50.9 R79.89 Office Visit 12/31/2016 12:26p [facility], Noemy Archibald, FEDE 78112 D64.9 Hospitalists D64.9 R74.8 R74.8 I25.118 I25.118 I73.9 I73.9 Office Visit 12/31/2016 11:35a [facility] Adrian Isaacs M.D. 30778 R07.9 [facility] R79.89 Office Visit 10/28/2016 1:20p [facility] Tina Pleitez, 80524 I35.2 Boom I34.0 I34.2 I44.7 Office Visit 09/14/2016 11:45a [facility] Oniel Hernandes 80137 G31.84 Boom Jorge Office Visit 09/05/2016 2:30p [facility] Of ADAMA Larson 02479YJT D64.9 [employer] I35.0 I34.0 Office Visit 08/30/2016 2:50p [facility], Pieter Richard, 02075 D64.89 Hospitalists M.DBethany R51 I47.2 J44.9 Office Visit 07/11/2016 1:00p [facility] Qutayb S. Maik, 84897 I35.0 M.DBethany I35.1 I44.7 I34.0 Office Visit 05/13/2016 1:40p [facility] Of [facility] S. 52112 I35.0 Barrett Pleitez M.D. I35.1 I44.7 I34.0 Office Visit 03/31/2016 2:00p [facility] Of [facility] ADAMA Larson 40985 I44.7 I34.0 I35.0 Office Visit 02/09/2016 11:00a [facility] Of ADAMA Larson 01050XOI F01.50 [employer] I34.0 I35.0 I44.7 R06.02 Office Visit 01/26/2016 2:00p [facility] Oniel Jorge, 25495 F01.50 Services Of Barrett Nur Office Visit 12/28/2015 1:20p [facility] Qutaybeh S. 73301 I44.7 Boom Pleitez I34.0 R06.02 I35.0 I35.1 I10 Office Visit 11/10/2015 12:00p [facility] Qutaybeh S. Maghaydah, 95821 I10 M.D. I44.7 I34.0 R06.02 I35.0 I35.1 Office Visit 10/05/2015 10:40a [facility] Qutaybeh S. Maghaydah, 78941 I10 M.D. I44.7 I34.0 R06.02 I35.0 Office Visit 09/11/2015 3:20p [facility] Qutaybeh S. Maik, 01252 I35.1 M.DBethany I10 I44.7 I34.0 R06.02 Office Visit 07/29/2015 2:30p [facility] Of [facility] ADAMA Larson 68048 424.1 401.1 780.4 414.01 426.3 Office Visit 07/13/2015 10:20a [facility] Greta Pleitez, 09282 414.01 M.DBethany 401.1 786.50 780.4 794.31 426.3 Office Visit 03/13/2015 9:49a [facility] [place], [address] 585.9 Assoc,pc Hospitalists M.DBethany 787.91 458.9 285.9 Office Visit 03/12/2015 9:48a [facility] Jose Mendez, 40720 787.91 Hospitalists M.DBethany 458.9 585.9 285.9 Office Visit 02/27/2015 9:30a [facility] Of Xu Valle, 46219 414.01 [facility] MJefferson 427.1 Office Visit 02/18/2015 4:00p [facility] S. Maik, 80696 427.1 M.DBethany 414.9 401.1 276.8 Office Visit 02/14/2015 1:45p [facility] Gayathri Narvaez, 86248 427.1 Hospitalists D.O. 428.0 507.0 285.9 Office Visit 02/13/2015 1:45p [facility], Gayathri Narvaez, 80868 427.1 Hospitalists D.O. 428.0 507.0 285.9 Office Visit 02/13/2015 9:26a [facility] Saud Balbuena, 07502 427.1 M.D. Office Visit 02/12/2015 9:59a [facility] Justina Isaacs M.D. 71490 414.9 [employer] 427.1 Office Visit 02/12/2015 1:44p [facility] Gayathri Narvaez, 67657 427.1 Hospitalists D.O. 428.0 507.0 285.9 Office Visit 02/11/2015 1:44p [facility], Gayathri Narvaez, 35114 427.1 Hospitalists D.O. 428.0 507.0 285.9 Office Visit 02/11/2015 8:38a [facility] Saud Balbuena M.D. 66209 427.1 414.9 Office Visit 02/10/2015 12:10p [facility] Jackietaybjakob SBethany Pleitez, 72895 794.31 MBethanyDBethany 401.1 Office Visit 02/10/2015 1:44p [facility], Gayathri Narvaez, 68653 427.1 Hospitalists D.O. 428.0 507.0 285.9 Office Visit 02/09/2015 11:20a [facility] Jackietaybjakob SBethany Pleitez, 03641 794.31 Boom 427.1 414.9 Office Visit 02/09/2015 1:43p [facility], Gayathri aNrvaez, 32154 427.1 Hospitalists D.O. 428.0 507.0 780.09 Office Visit 02/08/2015 1:43p [facility], Ragini Weathers, 03497 427.1 Hospitalists M.D. 428.0 507.0 780.09 Office Visit 02/08/2015 10:51a [facility] Alan aMrtinez, 07962 427.1 Boom, [facility] Office Visit 02/07/2015 1:42p [facility], Ragini Weathers, 79325 427.1 Hospitalists M.DBethany 428.0 507.0 Office Visit 02/07/2015 10:39a [facility] Alan Sincere Martinez, 49613 427.1 [facility] Boom, FAC, [facility] Office Visit 02/06/2015 11:01a [facility] Tina SBethany 63197 427.1 Boom Pleitez 414.9 794.31 Office Visit 02/06/2015 1:42p [facility], Ragini Weathers, 63677 427.1 Hospitalists MBethanyD. 428.0 507.0 Office Visit 02/06/2015 4:32p [facility] [address] 507.0 Services Of [employer] 511.9 Office Visit 02/05/2015 3:32p [facility] Justina Isaacs M.D. 65343 427.1 [employer] 414.9 Office Visit 02/05/2015 1:42p [facility], Ragini Weathers, 43397 427.1 Hospitalists Boom 428.0 507.0 780.60 Office Visit 02/05/2015 4:29p [facility] [address] 507.0 Services Of [facility] 793.19 511.9 780.97 Office Visit 02/04/2015 1:41p [facility], Ragini Weathers, 75127 427.1 Hospitalists Boom 780.60 507.0 428.0 Office Visit 02/04/2015 9:24a [facility] Tina Pleitez, 87729 276.8 M.DBethany 427.1 414.9 Office Visit 02/03/2015 1:40p [facility], Ragini Weathers, 25528 427.1 Hospitalists Boom 507.0 780.60 428.0 Office Visit 02/03/2015 8:58a [facility] Xu Valle, 26135 427.1 Barrett Nur 414.9 Office Visit 02/02/2015 1:40p [facility], Gayathri Narvaez, 57019 427.1 Hospitalists D.O. 780.60 507.0 428.0 Office Visit 02/01/2015 12:10p [facility], Gayathri Narvaez, 10684 427.1 Hospitalists D.O. 428.0 285.9 780.60 Office Visit 02/01/2015 2:54p [facility] Justina Isaacs M.D. 42668 427.1 [employer] 414.9 428.0 Office Visit 01/31/2015 1:39p [facility] [place], [address] 427.1 Assoc, Hospitalists Boom 440.9 272.4 V12.59 Office Visit 01/31/2015 2:45p [facility] Justina Isaacs M.D. 73308 427.1 [employer] 786.59 413.9 786.09 Office Visit 12/11/2014 3:20p [facility] Jackietaybeh S. Theashamavicky, 06807 786.59 M.DBethany 786.05 414.00 410.70 Office Visit 12/04/2014 2:39p [facility], Oniel Ingram 83049 410.70 Hospitalists Boom Greenberg 518.4 458.0 414.00 Office Visit 12/03/2014 10:59a [facility] Qutaybeh S. Theaydvicky, 15135 414.9 M.D. 794.31 786.59 786.05 Office Visit 12/03/2014 11:03a [facility], Oniel Ingram 33651 410.70 Hospitalists Boom Greenberg 518.4 458.0 414.00 Office Visit 12/02/2014 11:03a [facility], Oniel Ingram 15094 410.70 Hospitalists Boom Greenberg 518.4 458.0 414.00 Office Visit 11/29/2014 7:51p [facility], Jose Mendez, 30234 428.0 Hospitalists M.D. 426.3 401.9 Office Visit 11/28/2014 7:51p [facility], Jose Mendez, 69829 428.0 Hospitalists M.D. 426.3 401.9 Office Visit 11/27/2014 1:52p [facility] Ronal Alarcon, 72307 410.70 M.D. Office Visit 11/27/2014 7:50p [facility], Jose Mendez, 41426 428.0 Hospitalists M.DBethany 426.3 401.9 311 Office Visit 11/26/2014 7:49p [facility], Jose Wildorado, 00477 428.0 Hospitalists M.D. 426.3 401.9 311 Office Visit 11/05/2014 2:00p [facility] ADAMA Larson 73122 785.1 786.05 458.8 Office Visit 09/30/2014 2:00p [facility] Jackietaybeh S. Maik, 18721 424.0 M.DBethany 785.1 785.0 780.4 458.8 Office Visit 02/24/2014 2:20p [facility] Qutaybeh S. haydah, 74042 785.1 M.D. 785.0 786.05 272.4 424.0 397.0 Office Visit 02/12/2014 10:30a [facility] Qutaybeh S. haydah, 89034 785.1 M.D. 785.0 Office Visit 01/16/2014 4:00p [facility] Qutaybeh S. haydah, 19829 401.9 M.D. 785.2 785.1 785.0 272.4 794.31 780.4 786.05 Office Visit 01/31/2013 2:20p [facility] Internal Medicine Nayana Gong M.D. 22848 564.1 - [place] 281.1 Office Visit 01/17/2013 2:40p [facility] Medicine Nayana Gong M.D. 00994 564.1 - [place] 733.90 281.1 Office Visit 01/03/2013 2:00p [facility] Medicine Nayana Gong M.D. 35084 564.1 - [place] 781.91 783.21 272.4 401.9 780.79 V76.19 Office Visit 04/07/2011 2:20p [facility] Enoc Endo, 17203 795.79 Of [facility] Boom 471.9 Office Visit 02/15/2011 2:20p [facility] Enoc Endo, 15148 715.94 Of [facility] [place] 796.4 794.8 Plan of Care Future Appointment(s):07/18/2018 3:20 pm - Yvon Rosales M.D. at [facility]08/27/2018 3:00 pm - Tina Pleitez M.D. at [facility]06/28/2018 2:30 pm - Piedad Villafuerte N.P. at [facility]12/25/2018 2:45 pm - Oniel Jorge M.D. at [facility]06/07/2018 - Yvon Rosales M.D.M35.3 Polymyalgia rheumaticaComments:When your symptoms are under control, we will continue to slowly decrease the dose of corticosteroidmedicine. The goal is to find the lowest dose that keeps you comfortable. Some people can stop taking corticosteroids within a year. Others, though, will need a small amount of this medicine for 2 3 years, to keep aching and stiffness under control. Symptoms can recur. Because the symptoms of PMR are sensitive to even small changes in the dose of corticosteroids, I will help direct the gradual decrease of this medicine - See more at: [email or web address] -[email or web address] Elevated C-reactive protein (CRP)R70.0 Elevated erythrocyte sedimentation rateZ79.52 ocean transportation intermediary (current) use of systemic steroidsComments:For reasons that are not known, high dose steroids ( which I discussed with the patient) predispose some patients to joint damage, most often of the hips. In avascular necrosis (or osteonecrosis, meaning bone ) of the hip, the part of the leg bone that inserts into the pelvis dies, resulting in pain with weight bearing and some loss of joint function. Many patients with avascular necrosis require joint replacements. Therefore I advised the patient to contact us immediately if unexplained hip or knee or other joint pain develops. Other potential side effects, including cataracts, abdominal striae, mood swings, osteoporosis, high blood sugar, weight gain and high blood pressure were also discussed with the patient. Therefore the patient will follow up closely with opthalmology, primary care, and continue vitamin D3 to help prevent complications of steroids. The patient expressed understanding.R76.0 Raised antibody titerFollow up:Follow up in 3 to 4 weeks or sooner if xvenvhL83.9 Anemia, unspecified
--- NOTE | 2018-07-06 15:45 | ED ---
HPI Chest Pain - HPI Summary HPI Summary: This is scribe Ramu Reed documenting for attending Dr. Shayne Nur This patient is an 82 year old F presenting to [facility] with a chief complaint of squeezing mid-sternal CP since 1400. Pt endorses pain radiation to jaw, neck, and head. She endorses that she took 3 NTG with no relief. Pt does not take ASA. Pt rx Plavix. She notes that the pain is currently resolved. Per EMS, most recent BP 110/66. Pt was making bed at time of sx onset. Pt denies N/ V and SOB. Pt unsure of to how sx resolved. Pt endorses similar sx, but not similar to her sx during her previous MIs. PMHx 3x CA, one 3 years ago and two smaller ones since. No stents. She denies DM, smoking. Pt had stress test yesterday with Dr. Houston, who did not disclose any results to the patient. I, Dr. Bella personally performed the services described in this documentation as scribed in my presence and it is both accurate and complete. - History of Current Complaint Hx Obtained From: Patient, EMS Hx Last Menstrual Period: years ago. Onset/Duration: Started Hours Ago, Resolved Timing: Constant, Lasting Hours Initial Severity: Severe Current Severity: None Pain Intensity: 0 Pain Scale Used: 0-10 Numeric Chest Pain Location: Mid Sternal Chest Pain Radiates: Yes Chest Pain Radiates To:: Jaw, Neck, Other - head Character: Pressure/Squeezing Aggravating Factor(s): Exertion - making bed Alleviating Factor(s): NTG 123 Associated Signs and Symptoms: Positive: Chest Pain, Headaches. Negative: Shortness of Breath, Fever, Nausea, Vomiting - Additional Pertinent History Primary Care Physician: - Allergy/Home Medications Allergies/Adverse Reactions: Allergies Allergy/AdvReac Type Severity Reaction Status Date / Time cephalexin Allergy GI Upset Verified 07/06/18 16:05 ibuprofen Allergy Nausea Verified 07/06/18 16:05 METALS Allergy Unknown Rash Uncoded 05/09/18 07:04 CHESTNUTS Allergy LIPS SWELL Uncoded 05/09/18 07:04 AND ARE VERY PAINFUL PEANUTS Allergy Swelling Uncoded 05/09/18 07:04 Of Face,Lips,& Throat SEASONAL Allergy STUFFY Uncoded 05/09/18 07:04 HAYFEVER/ENVIRONMENTAL NOSE, WATERY EYES msg AdvReac Mild headache; Uncoded 05/09/18 07:04 jitters Home Medications: Home Medications Acetaminophen TAB* [Tylenol TAB*] 650 mg PO Q8HR PRN MDD 1950 mg 07/06/18 [ History Confirmed 07/06/18] Amiodarone TAB* [Cordarone Tab*] 50 mg PO DAILY 07/06/18 [History Confirmed 09/13] Atorvastatin* [Lipitor 40 MG*] 40 mg PO BEDTIME 07/06/18 [History Confirmed 09/13] Calcium Carbonate/Vitamin D3 [Calcium 600+D Softgel] 2 cap PO BID 07/06/18 [ History Confirmed 07/06/18] Clopidogrel TAB* [Plavix TAB*] 75 mg PO QPM 07/06/18 [History Confirmed 07/06/18 ] Cyanocobalamin TAB* [Vitamin B12 TAB*] 2,000 mcg PO QPM 07/06/18 [History Confirmed 07/06/18] Escitalopram (NF) [Lexapro 10 mg (NF)] 10 mg PO QAM 07/06/18 [History Confirmed 07/06/18] Gabapentin CAP(*) [Neurontin 300 CAP(*)] 600 mg PO BEDTIME 07/06/18 [History Confirmed 07/06/18] Lactobacillus Acidophilus [Acidophilus] 1 tab PO DAILY 07/06/18 [History Confirmed 07/06/18] Magnesium Oxide TAB* [MagOx 400 TAB*] 400 mg PO DAILY 07/06/18 [History Confirmed 07/06/18] Melatonin 3 mg PO BEDTIME PRN 07/06/18 [History Confirmed 07/06/18] Nitroglycerin TAB 0.4 MG* 0.4 mg SL Q5M PRN 07/06/18 [History Confirmed 07/06/18 ] predniSONE TAB* [Deltasone TAB*] 20 mg PO QAM 07/06/18 [History Confirmed ] traMADol TAB* [Ultram*] 25 mg PO Q8HR PRN MDD 75 mg 07/06/18 [History Confirmed 07/06/18] PMH/Surg Hx/FS Hx/Imm Hx Endocrine/Hematology History: Reports: Hx Anticoagulant Therapy, Hx Anemia - RECIEVED IRON INFUSIONS IN PAST Denies: Hx Diabetes, Hx Thyroid Disease Cardiovascular History: Reports: Hx Angina - RARELY USES NITRO, Hx Cardiomegaly , Hx Congestive Heart Failure, Hx Coronary Artery Disease - ON MED, Hx Hypercholesterolemia, Hx Hypotension - current, Hx Myocardial Infarction - 2015 , Hx Peripheral Vascular Disease, 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 godwin left carotid artery 2013 right carot Denies: Hx Deep Vein Thrombosis, Hx Hypertension, Hx Pacemaker/ICD Respiratory History: Reports: Hx Asthma - POSSIBLY IN THE PAST, Hx Pneumonia Denies: Hx Chronic Obstructive Pulmonary Disease (COPD), Hx Lung Cancer GI History: Reports: Other GI Disorders - CHRONIC CONSTIPATION-TAKES LAXATIVE DAILY peg tube 03/12/18 Denies: Hx Gall Bladder Disease, Hx Gastroesophageal Reflux Disease, Hx Gastrointestinal Bleed, Hx Ulcer, Hx Urosepsis History: Denies: Hx Kidney Stones, Hx Renal Disease, Other Problems/Disorders Musculoskeletal History: Reports: Hx Arthritis - HANDS & FEET Denies: Hx Rheumatoid Arthritis, Hx Osteoporosis Sensory History: Reports: Hx Cataracts - BILAT, Hx Contacts or Glasses Denies: Hx Hearing Aid Opthamlomology History: Reports: Hx Cataracts - BILAT, Hx Contacts or Glasses Neurological History: Reports: Hx Headaches - TAKES TRAMADOL PRN, Hx Migraine - last episode 1 yr ago 2016, Hx Nerve Disease - see below, Other Neuro Impairments/Disorders - 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 type. Hx Chemotherapy: No Hx Radiation Therapy: No - Surgical History Surgery Procedure, Year, and Place: Hysterectomy, 1983, [facility] [place]. Choleycystectomy, 1993, [facility]. nose surgery .DR CHIN. BILAT.Femoral bypass, 1996, [facility] [place]. Left carotid endardectomy 2013. Right first toe, first joint replacement, 2005, [facility] [place]. LIGATION OF ETHMOIDAL INTERNAL MAXILIARY ARTERIES 2007. MYLEOGRAM. LASER SURGERY FOR EPISTAXIS X 6 OVER PAST 10 YEARS. RIGHT CAROTID ENDARECTOMY 03/01/18 [facility]. PEG TUBE INSERTION 03/12/18 [facility]. NASAL EPISTAXIS [facility] [place] DR. CHIN Hx Anesthesia Reactions: No - Immunization History Date of Tetanus Vaccine: up to date Date of Influenza Vaccine: up to date Infectious Disease History: No Infectious Disease History: Denies: Hx Clostridium Difficile, Hx Hepatitis, Hx Human Immunodeficiency Virus (HIV), Hx of Known/Suspected MRSA, Hx Shingles, Hx Tuberculosis, Hx Known/ Suspected VRE, Hx Known/Suspected VRSA, History Other Infectious Disease, Traveled Outside the [place] in Last 30 Days - Family History Known Family History: Positive: None, Hypertension Negative: Cardiac Disease - Social History Alcohol Use: None Alcohol Amount: a glass of wine a few times a week Hx Substance Use: No Substance Use Type: Reports: None Hx Tobacco Use: Yes Smoking Status (MU): Former Smoker Type: Cigarettes Amount Used/How Often: 1 PPD Length of Time of Smoking/Using Tobacco: 47 YEARS Have You Smoked in the Last Year: No Review of Systems Negative: Fever Positive: Chest Pain Negative: Shortness Of Breath Negative: Vomiting, Nausea Positive: no symptoms reported Positive: Myalgia - neck, jaw Positive: Headache All Other Systems Reviewed And Are Negative: Yes Physical Exam - Summary Physical Exam Summary: VITAL SIGNS: Reviewed. GENERAL: Patient is a well-developed and nourished female who is lying comfortable in the stretcher. Patient is not in any acute respiratory distress. HEAD AND FACE: No signs of trauma. No ecchymosis, hematomas or skull depressions. No sinus tenderness. EYES: PERRLA, EOMI x 2, No injected conjunctiva, no nystagmus. EARS: Hearing grossly intact. Ear canals and tympanic membranes are within normal limits. MOUTH: Oropharynx within normal limits. NECK: Supple, trachea is midline, no adenopathy, no JVD, no carotid bruit, no c- spine tenderness, neck with full ROM. CHEST: Symmetric, no tenderness at palpation LUNGS: Clear to auscultation bilaterally. No wheezing or crackles. CVS: Regular rate and rhythm, S1 and S2 present, no murmurs or gallops appreciated. ABDOMEN: Soft, non-tender. No signs of distention. No rebound no guarding, and no masses palpated. Bowel sounds are normal. EXTREMITIES: FROM in all major joints, no edema, no cyanosis or clubbing. NEURO: Alert and oriented x 3. No acute neurological deficits. Speech is normal and follows commands. SKIN: Dry and warm Triage Information Reviewed: Yes Vital Signs On Initial Exam: Initial Vitals Temp Pulse Resp BP Pulse Ox 98.6 F 72 14 150/94 98 07/06/18 15:23 07/06/18 15:23 07/06/18 15:23 07/06/18 15:23 07/06/18 15:23 Vital Signs Reviewed: Yes Diagnostics - Vital Signs Vital Signs Temp Pulse Resp BP Pulse Ox 07/06/18 15:23 98.6 F 72 14 150/94 98 - Laboratory Result Diagrams: 07/08/18 06:03 07/08/18 06:03 Lab Statement: Any lab studies that have been ordered have been reviewed, and results considered in the medical decision making process. - Radiology CXR Xray Interpretation: No Acute Changes Radiology Interpretation Completed By: Radiologist - No active cardiopulmonary disease is noted. Dr. Bella has reviewed this report. - EKG 1526 Cardiac Rate: NL - 73 ST Segment: Normal Ectopy: None EKG Interpretation: No STEMI, (+) LVH EKG Comparison: No Significant Change - when compared to 05/09/18 Chest Pain Course/Dx - Course Assessment/Plan: Patient is an 82-year-old female who presents to the emergency department via ambulance with a chief complaint of having chest pain. The patient reports that she was making her bed and developed chest pain. She reports a pressure pain with radiation to the jaw. She reports that she took 3 nitroglycerin and symptoms resolve. Test results without any significant abnormality except for white cell count of 11.7, hemoglobin 8.7 hematocrit 29 MCV 79. BUN 39 creatinine is 1.59. BNP 680. Urinalysis negative for UTI. EKG shows no ST elevation. EKG was reviewed with Dr. Stroud. Chest x-ray impression: No active cardiopulmonary disease. Patient declined aspirin. Because of the increased troponin, the presentation symptoms I discussed the case with Dr. Weathers who accepted the patient for admission. Patient is hemodynamically stable and alert oriented 3. - Chest Pain Differential Diagnosis/HQI/PQRI: Acute CA, ACS, Angina, CHF, Chest Wall, GI Disease, Lower Respiratory Infection - Diagnoses Provider Diagnoses: Chest pain - Provider Notifications Discussed Care Of Patient With: Ragini Weathers Time Discussed With Above Provider: 17:30 Instructed by Provider To: Other - Accepts admission. Discharge - Sign-Out/Discharge Documenting (check all that apply): Patient Departure - admit - Discharge Plan Condition: Fair Disposition: ADMITTED TO [facility] - Billing Disposition and Condition Condition: FAIR Disposition: Admitted to [facility] Attestations User Type: Provider - I, Dr. Bella personally performed the services described in this documentation as scribed in my presence and it is both accurate and complete.
[2018-07-06 16:02] LABS: ABS Basophils 0 10^3/ul (0-0.2); ABS Eosinophils 0 10^3/ul (0-0.6); ABS Lymphocytes 0.4 10^3/ul (1.0-4.8); ABS Monocytes 0.2 10^3/ul (0-0.8); ABS Nucleated RBC 0 10^3/ul; Eosinophil % 0.2 % (0-6); Hematocrit 29 % (35-47); Hemoglobin 8.7 g/dl (12.0-16.0); Lymphocyte % 3.6 % (25-47); Mean Corpuscular HGB Conc 30 g/dl (31-36); Mean Corpuscular Hemoglobin 24 pg (27-31); Mean Corpuscular Volume 79 fL (80-97); Mean Platelet Volume 9.3 um3 (7.4-10.4); Nucleated Red Blood Cells % 0; Platelet Count 151 10^3/ul (150-450); Red Blood Count 3.61 10^6/ul (4.00-5.40); Red Cell Distribution Width 19 % (10.5-15); White Blood Count 11.7 10^3/ul (3.5-10.8)
--- NOTE | 2018-07-06 16:06 | RAD ---
Indication: Chest pain. Single frontal view of the chest performed at 1545 hours was reviewed. Comparison is made with previous exam dated March 24, 2018. Cardiomegaly is noted. Lung byrd demonstrate no pleural fluid, pneumonia or pneumothorax. No alveolar consolidation is noted. IMPRESSION: NO ACTIVE CARDIOPULMONARY DISEASE IS NOTED.
[2018-07-06 16:18] LABS: INR 0.91 (0.77-1.02)
[2018-07-06 16:22] LABS: EGFR Non-African American 31.2 (>60)
[2018-07-06] MEDS ORDERED: Ondansetron INJ* 2 MG/ML VIAL IV PRN (17:57)
[2018-07-06] MEDS ORDERED: Pantoprazole IV* 40 MG IV ONE (17:57)
[2018-07-06] MEDS ORDERED: Pantoprazole IV* 80 MG in NS 0.9% 250 ML* 250 ML IVPB SCH (18:00)
[2018-07-06 18:42] LABS: Urine Appearance Clear; Urine Blood Negative (Negative); Urine Color Straw; Urine Ketones Negative (Negative); Urine Protein Negative (Negative); Urine Red Blood Cell Trace(0-2/hpf) (Absent); Urine Specific Gravity 1.008 (1.010-1.030); Urine Urobilinogen Negative (Negative); Urine White Blood Cell 1+(6-10/hpf) (Absent)
[2018-07-06] MEDS: Gabapentin CAP(*) 300 MG PO SCH (20:16)
[2018-07-06] MEDS: Metoprolol Tartrate TAB* 25 MG PO SCH (20:18)
[2018-07-06] MEDS: Atorvastatin* 40 MG TAB PO SCH (20:18)
[2018-07-06] MEDS: Acetaminophen TAB* 325 MG PO PRN (20:27)
[2018-07-06] MEDS: clonazePAM TAB(*) 1 MG PO PRN (20:27)
[2018-07-06] MEDS: traMADol TAB* 50 MG PO PRN (20:28)
[2018-07-06] MEDS: Melatonin 3 MG TAB PO PRN (20:28)
--- NOTE | 2018-07-06 21:05 | HP ---
CC: Dr. Anderson; Dr. Balbuena* HISTORY AND PHYSICAL: DATE OF ADMISSION: 07/06/18 PRIMARY CARE PROVIDER: Dr. Anderson. ATTENDING PHYSICIAN WHILE IN THE HOSPITAL: Dr. Federico Caraballo* ( report being dictated by Maximo Cao NP). CHIEF COMPLAINT: Chest pain. HISTORY OF PRESENT ILLNESS: Ms. Gutierrez is an 82-year-old female patient, who is presenting to the emergency department today with complaints of chest discomfort. She carries a history of CAD, V-tach, cardiac arrest, hypertension, hyperlipidemia, anxiety, orthostatic hypotension, depression, PMR, aspiration pneumonia, IBS, history of B12 deficiency, arthritis, PVD, migraines, GERD, chronic back pain, and neck pain. She comes in today because she was making her bed this afternoon around 2 o'clock, she was putting the sheets on and she developed an episode of pressure heaviness in the chest radiated to the jaw and she became short of breath. She had a hard time calling down to her . She took 3 nitro. The pain lasted about 10 to 15 minutes and then it finally went away. She denied any recent fevers, cough, chills. She denies having any tarry stools or black stools. She says that she, few months ago, did have a carotid endarterectomy and she has been on Plavix since then. Also, recently her prednisone was increased for a working diagnosis of PMR with Dr. Rosales and Dr. Anderson, but she was concerned though today. She has also noted the last 3 to 4 days, she has been progressively having weakness, feeling lightheaded, dizzy with position change. So, she was complaining of dizziness and just not feeling well for the last few days, feeling weak. She came into the ED today. There was concern for possible FL. STEMI was actually called, but it was felt not be a STEMI given the fact that it actually looks like her previous EKG. Because of the chest pain and concerning story, we were asked to evaluate for admission. PAST MEDICAL HISTORY: Significant for: 1. CAD. 2. History of V-tach, cardiac arrest. 3. Hypertension. 4. Hyperlipidemia. 5. Anxiety. 6. Orthostatic hypotension. 7. Depression. 8. PMR. 9. Aspiration pneumonia. 10. IBS. 11. B12 deficiency. 12. Arthritis. 13. PVD. 14. Migraines. 15. GERD. 16. History of chronic back pain and neck pain. PAST SURGICAL HISTORY: 1. She has had heart catheterization x2. 2. She has had left and right carotid endarterectomies. 3. Fem-pop bypass. 4. Tubal ligation. 5. Total abdominal bilateral salpingo-oophorectomy. 6. Multiple nasal surgeries for epistaxis. MEDICATIONS: Home meds according to list provided include: 1. Nitroglycerin 0.4 mg sublingual q.5 minutes p.r.n. chest pain. 2. Melatonin 3 mg p.o. at bedtime as needed. 3. Tylenol 650 mg p.o. every 8 hours as needed. 4. Tramadol 25 mg p.o. daily. 5. Klonopin 1 mg p.o. b.i.d. as needed. 6. Neurontin 600 mg p.o. daily at bedtime. 7. B12 2000 mcg daily. 8. Lipitor 40 mg p.o. at bedtime. 9. Plavix 75 mg p.o. q.p.m. 10. Lactobacillus 1 capsule daily. 11. Magnesium oxide 400 mg p.o. daily. 12. Amiodarone 50 mg p.o. daily. 13. Calcium with vitamin D 2 capsules p.o. b.i.d. 14. Lexapro 10 mg p.o. q.a.m. 15. Prednisone 20 mg p.o. q.a.m. ALLERGIES TO MEDICATIONS: Include KEFLEX and IBUPROFEN. FAMILY HISTORY: Mother of old age. Father of heart attack when he was young. SOCIAL HISTORY: She is a former smoker. Does not drink alcohol. Surrogate decision maker is her . REVIEW OF SYSTEMS: There is no documented fever. She denies having any significant weight change. There is no double vision. She denies having any ear discharge. There is no rhinorrhea. There is no sore throat. No thyroid enlargement. She denies having any chest pain currently, she did have some per my HPI. There is no orthopnea. There is no nocturnal dyspnea. There is no abdominal pain. There was no nausea, no vomiting. No dysuria, no frequency. No seizure, no loss of consciousness. No pruritus and no skin ulcerations. Review of 14 systems was completed, all others negative. PHYSICAL EXAMINATION GENERAL: At this time, Ms. Gutierrez is an 82-year-old female patient. She appears to be well nourished and well developed. She is sitting in the ED stretcher. She does not appear to be in any acute distress. VITAL SIGNS: Blood pressure 143/79, pulse 75, respirations 18, O2 sat 96%, temperature of 98.6. HEENT: Head is atraumatic and normocephalic. Eyes: EOMs intact. Sclerae anicteric and not pale. Throat: Oral mucosa appears to be moist. No oropharyngeal erythema. NECK: Supple. LUNGS: Clear to auscultation bilaterally. No wheezes, rales, or rhonchi. HEART: Sounds S1, S2. Regular rate and rhythm. No murmurs, rubs, or gallops. ABDOMEN: Soft, flat, nontender. Bowel sounds were present. EXTREMITIES: Pulses were 2+ throughout. She had no peripheral edema. NEUROLOGICAL: She is awake, alert, and oriented x3. Tongue midline. Drywall Installer were equal. She had no gross focal deficits. SKIN: Intact. DIAGNOSTIC STUDIES/LAB DATA: WBC was 11.7; RBC was 3.61; hemoglobin was 8.7; hematocrit was 29; her MCV and MCH were low, which previously they had not been ; platelet count was 151. INR 0.91, PTT of 25.3. Sodium was 141, potassium was 4.3, chloride of 108, bicarb 28, BUN 39, creatinine of 1.59, glucose 87, lactate 0.7, calcium 8.4, mag 1.9. Total bili 1.1, AST 24, ALT 18, alk phos 43. LDH pending. CK 38, CK-MB 3.6, myoglobin 31. Troponin 0.07. BNP of 680. TSH of 1.68. She had an EKG obtained today, which does show a normal sinus rhythm, rate of 95. She had what looks like J-point elevation in V1, V2. She had inverted T- waves in V4, V5, and V6. When you look back previously, she has had this before. The J- point elevation appears to be a little bit more worse today, but otherwise EKG is overall unchanged. She did have a chest x-ray obtained today, which showed no active cardiopulmonary disease. Old medical records were reviewed. ASSESSMENT AND PLAN: Ms. Gutierrez is an 82-year-old female patient with extensive past medical history, coming into the ED today with complaints of chest pain. We were asked to evaluate for admission. She will be admitted under inpatient status for: 1. Chest pain. Again, my concern is here obviously this could be acute coronary syndrome. She has significant risk factors for this. However, her hemoglobin is down a little bit, she is microcytic, and I do have concern that she could be having a slow bleed. She has a history of this. I do think it is appropriate to give 1 unit of blood given the symptomatic anemia, get serial H and Hs, 2 IVs, Hemoccult. We will send off iron studies and we will send off LDH, haptoglobin, reticulocyte count. Her Hemoccult just came back and was negative, so because of this I will keep her on Plavix. We will add a small dose of a beta mercedes, Lopressor 12.5 b.i.d., and we will follow her closely. I placed a consult to Cardiology. We will get EKG in the morning, serial troponins, and an echo as well. 3. Anemia. Again, she could have a slow bleed. Hemoccult was negative. I am checking iron studies, retic count, LDH, haptoglobin, and Macrina test. We will give her 1 unit of blood. We will continue to follow. 2. Coronary artery disease. She is on Plavix and I am adding a beta mercedes, we will continue and statin therapy. 3. History of ventricular tachycardia. Again, she will be placed on telemetry. We will monitor. 4. Hypertension. I am going to go ahead and put her on Lopressor, but we will need to be mindful of her previous history of orthostasis. 5. Hyperlipidemia. Continue statin therapy. 6. Anxiety/depression. Continue supportive care. 7. History of polymyalgia rheumatica. I will continue her prednisone. 8. History of irritable bowel syndrome. Continue with her current medical regimen. 9. B12 deficiency. Continue with the patient's B12. 10. Arthritis. Continue meds as prescribed. 11. History of peripheral vascular disease. Continue her Plavix and statin therapy. 12. Migraines. P.r.n. Tylenol has been ordered. 13. Gastroesophageal reflux disease. Continue her current medical regimen. 14. Chronic back pain. P.r.n. Tylenol is available. 15. DVT prophylaxis. I will place her on SCDs. 16. Code status. She is a full code. 17. Fluids, electrolytes, and nutrition. She can have a clear liquid diet. TIME SPENT: Time spent on the admission was 60 minutes, greater than half the time was spent [id number] with the patient obtaining my history and physical, other half time was spent going over the plan of care with the patient and implementing the plan of care. I did discuss the plan of care with my attending, Dr. Caraballo; he is in agreement. MAXIMO CAO, CONTINUOUS PROCESS MACHINE OPERATOR [id number]/CPS #: [id number] [facility]
[2018-07-06 21:37] LABS: Hematocrit 29 % (35-47); Hemoglobin 9.1 g/dl (12.0-16.0)
[2018-07-06] MEDS: Ferrous Sulfate TAB* 325 MG PO SCH (22:02)
[2018-07-07 04:42] LABS: ABS Basophils 0.1 10^3/ul (0-0.2); ABS Eosinophils 0 10^3/ul (0-0.6); ABS Lymphocytes 1.2 10^3/ul (1.0-4.8); ABS Neutrophils 8.5 10^3/ul (1.5-7.7); ABS Nucleated RBC 0 10^3/ul; Eosinophil % 0.2 % (0-6); Hematocrit 32 % (35-47); Hemoglobin 9.7 g/dl (12.0-16.0); Lymphocyte % 11.5 % (25-47); Mean Corpuscular HGB Conc 31 g/dl (31-36); Mean Corpuscular Hemoglobin 24 pg (27-31); Mean Corpuscular Volume 79 fL (80-97); Mean Platelet Volume 9.5 um3 (7.4-10.4); Nucleated Red Blood Cells % 0; Platelet Count 191 10^3/ul (150-450); Red Blood Count 3.98 10^6/ul (4.00-5.40); Red Cell Distribution Width 19 % (10.5-15); White Blood Count 10.8 10^3/ul (3.5-10.8)
[2018-07-07 04:52] LABS: EGFR Non-African American 32.6 (>60)
[2018-07-07] MEDS: Ferrous Sulfate TAB* 325 MG PO SCH ×2 (08:38→20:30)
[2018-07-07] MEDS: Citalopram TAB* 20 MG PO SCH (08:38)
[2018-07-07] MEDS: Amiodarone TAB* 200 MG PO SCH (08:39)
[2018-07-07] MEDS: predniSONE TAB* 20 MG PO SCH (08:39)
[2018-07-07] MEDS: Metoprolol Tartrate TAB* 25 MG PO SCH ×2 (08:39→20:32)
[2018-07-07] MEDS: Magnesium Oxide TAB* 400 MG PO SCH (08:39)
--- NOTE | 2018-07-07 13:16 | PN ---
Subjective Date of Service: 07/07/18 Interval History: HOSPITALIST PROGRESS NOTE Patient seen and examined at bedside. Care reviewed and d/w Yaa Will RN. She feels better today, no further episodes of chest pain/pressure or dizziness. Family History: Unchanged from Admission Social History: Unchanged from Admission Past Medical History: Unchanged from Admission Objective Active Medications: Acetaminophen (Tylenol Tab*) 650 mg PO Q4H PRN PRN Reason: FEVER/PAIN Last Admin: 07/06/18 20:27 Dose: 650 mg Amiodarone HCl (Cordarone Tab*) 50 mg PO DAILY [facility] Last Admin: 07/07/18 08:39 Dose: 50 mg Atorvastatin Calcium (Lipitor*) 40 mg PO BEDTIME [facility] Last Admin: 07/06/18 20:18 Dose: 40 mg Citalopram Hydrobromide (Celexa Tab*) 20 mg PO QAM [facility] Last Admin: 07/07/18 08:38 Dose: 20 mg Clonazepam (Klonopin Tab(*)) 1 mg PO BEDTIME PRN PRN Reason: ANXIETY Last Admin: 07/06/18 20:27 Dose: 1 mg Clopidogrel Bisulfate (Plavix Tab*) 75 mg PO QPM [facility] Cyanocobalamin (Vitamin B12 Tab*) 2,000 mcg PO QPM [facility] Ferrous Sulfate (Ferrous Sulfate Tab*) 325 mg PO BID [facility] Last Admin: 07/07/18 08:38 Dose: 325 mg Gabapentin (Neurontin Cap(*)) 600 mg PO BEDTIME [facility] Last Admin: 07/06/18 20:16 Dose: 600 mg Magnesium Oxide (Magox 400 Tab*) 400 mg PO DAILY [facility] Last Admin: 07/07/18 08:39 Dose: 400 mg Melatonin (Melatonin) 3 mg PO BEDTIME PRN; Protocol PRN Reason: SLEEP Last Admin: 07/06/18 20:28 Dose: 3 mg Metoprolol Tartrate (Lopressor Tab*) 12.5 mg PO Q12HR [facility] Last Admin: 07/07/18 08:39 Dose: 12.5 mg Ondansetron HCl (Zofran Inj*) 4 mg IV Q6H PRN PRN Reason: NAUSEA Prednisone (Deltasone Tab*) 20 mg PO QAM [facility] Last Admin: 07/07/18 08:39 Dose: 20 mg Tramadol HCl (Ultram*) 25 mg PO Q8HR PRN PRN Reason: PAIN Last Admin: 07/06/18 20:28 Dose: 25 mg Vital Signs - 8 hr 07/07/18 07/07/18 07/07/18 06:46 06:48 06:50 Temperature 98.1 F Pulse Rate 60 63 65 Respiratory 14 Rate Blood Pressure 130/66 112/68 127/61 (mmHg) O2 Sat by Pulse 100 100 100 Oximetry 07/07/18 07/07/18 07/07/18 07:10 07:14 07:21 Temperature 97.8 F Pulse Rate 64 Respiratory 18 18 Rate Blood Pressure 170/64 128/64 (mmHg) O2 Sat by Pulse 100 Oximetry 07/07/18 07/07/18 07/07/18 07:22 10:23 12:00 Temperature 98.3 F Pulse Rate 57 62 Respiratory 20 Rate Blood Pressure 170/68 129/44 101/53 (mmHg) O2 Sat by Pulse 96 98 Oximetry Oxygen Devices in Use Now: None Appearance: Elderly lady sitting up in bed in NAD. Eyes: No Scleral Icterus Ears/Nose/Mouth/Throat: Mucous Membranes Moist Neck: Trachea Midline Respiratory: Symmetrical Chest Expansion and Respiratory Effort, Clear to Auscultation Cardiovascular: RRR - Normal S1 and S2 Abdominal: NL Sounds; No Tenderness; No Distention Neurological: Alert and Oriented x 3, NL Muscle Strength and Tone Result Diagrams: 07/07/18 04:21 07/07/18 04:21 Assess/Plan/Problems-Billing Assessment: Mrs Gutierrez is an 82yo F with PMH of CAD, Vtach, HTN, HLD, anxiety, orthostatic hypotension, depression, PMR, aspiration pneumonia, IBS, vitamin B12 deificiency , severe peripheral vascular disease, migraines, GERD, chronic back pain, who presented to ED with c/o chest pain. - Patient Problems (1) Chest pain Comment: - Troponins minimally elevated. - D/w Cardiology - pain could be secondary to demand ischemia with exertion - plan to continue low dose beta-mercedes and nitrates PRN. - She has BP difference R>L - CTA head/neck done 01/13 showed high grade left subclavian stenosis - symptoms could be secondary to subclavian steal - will need f/u with Dr. Dupont as outpatient. - Continue Atorvastatin and Plavix. (2) Iron deficiency anemia Comment: - H/H is low but stable. Mycrocitosis is worse. - Anemia w/u revealed iron<15, ferritin 26, stool occult blood is negative. - With her considerable vascular/heart disease she can use all the oxygen carrying capacity she can have - will give parenteral iron. - Check folate and B12. (3) V-tach Comment: - Continue Amiodarone. (4) HTN (hypertension) Comment: - Controlled - continue low dose Metoprolol. (5) Hyperlipidemia Comment: - Continue Atorvastatin. (6) Polymyalgia rheumatica Comment: - Continue prednisone. (7) DVT prophylaxis Comment: - SCDs. (8) Full code status Status and Disposition: Inpatient.
[2018-07-07] MEDS ORDERED: Nitroglycerin TAB 0.4 MG* 0.4 MG TAB SL PRN (13:26)
[2018-07-07] MEDS ORDERED: Ferric Gluconate IV* 25 MG in NS 0.9% 50 ML* 50 ML IVPB ONE (14:00)
[2018-07-07] MEDS ORDERED: Cyanocobalamin TAB* 500 MCG PO SCH ×2 (18:00→21:00)
[2018-07-07] MEDS ORDERED: Clopidogrel TAB* 75 MG PO SCH ×2 (18:00→21:00)
[2018-07-07] MEDS: Atorvastatin* 40 MG TAB PO SCH (20:29)
[2018-07-07] MEDS: Gabapentin CAP(*) 300 MG PO SCH (20:30)
[2018-07-07] MEDS: traMADol TAB* 50 MG PO PRN (21:01)
[2018-07-07] MEDS: Melatonin 3 MG TAB PO PRN (21:01)
[2018-07-07] MEDS: clonazePAM TAB(*) 1 MG PO PRN (21:02)
[2018-07-07] MEDS: Acetaminophen TAB* 325 MG PO PRN (21:03)
[2018-07-08] MEDS: Acetaminophen TAB* 325 MG PO PRN (06:10)
[2018-07-08 06:34] LABS: ABS Basophils 0 10^3/ul (0-0.2); ABS Eosinophils 0.1 10^3/ul (0-0.6); ABS Lymphocytes 1.6 10^3/ul (1.0-4.8); ABS Monocytes 1.2 10^3/ul (0-0.8); ABS Neutrophils 8.8 10^3/ul (1.5-7.7); ABS Nucleated RBC 0 10^3/ul; Eosinophil % 0.6 % (0-6); Hematocrit 30 % (35-47); Hemoglobin 9.5 g/dl (12.0-16.0); Lymphocyte % 13.5 % (25-47); Mean Corpuscular HGB Conc 32 g/dl (31-36); Mean Corpuscular Hemoglobin 25 pg (27-31); Mean Corpuscular Volume 78 fL (80-97); Mean Platelet Volume 9.8 um3 (7.4-10.4); Nucleated Red Blood Cells % 0.1; Platelet Count 181 10^3/ul (150-450); Red Blood Count 3.84 10^6/ul (4.00-5.40); Red Cell Distribution Width 19 % (10.5-15); White Blood Count 11.7 10^3/ul (3.5-10.8)
[2018-07-08 06:53] LABS: EGFR Non-African American 31.9 (>60)
[2018-07-08] MEDS: Ferrous Sulfate TAB* 325 MG PO SCH (08:21)
[2018-07-08] MEDS: Citalopram TAB* 20 MG PO SCH (08:21)
[2018-07-08] MEDS: Magnesium Oxide TAB* 400 MG PO SCH (08:22)
[2018-07-08] MEDS: predniSONE TAB* 20 MG PO SCH (08:22)
[2018-07-08] MEDS: Metoprolol Tartrate TAB* 25 MG PO SCH (08:22)
[2018-07-08] MEDS: Amiodarone TAB* 200 MG PO SCH (08:23)
[2018-07-08 11:39] VITALS: BP 96/54
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
[2018-07-09] MEDS ORDERED: Metoprolol Succinate XL TAB* 25 MG PO SCH (09:00)
--- NOTE | 2018-07-09 09:49 | CONS ---
CC: Dr. Pleitez; Dr. Grecia Anderson* CARDIOLOGY CONSULTATION REPORT: DATE OF CONSULT: 07/06/2018. PATIENT OF: Dr. Pleitez. REASON FOR EVALUATION: Chest pain. HISTORY OF PRESENT ILLNESS: This is a very pleasant 82-year-old woman who is accompanied by her . She has multiple complex medical problems including history of coronary artery disease, ventricular arrhythmias, severe peripheral vascular disease, aortic stenosis, mitral regurgitation, mitral stenosis, hypertension, and diverticular bleeds. She was in her house today and making a bed and developed severe squeezing chest pain. She also had some scapular pain, which she has had for the last couple of weeks and has recently been diagnosed with polymyalgia rheumatica. She took 3 nitroglycerin without relief and called for an ambulance. She came to the hospital and was admitted. By the time she was in the ER, she was pain free. She told her pain lasted about 2 hours. She had a mildly elevated troponin, but did not have any change in her EKG compared to her previous. She has remained pain free here. She does report she is limited by dizziness over the last month or so. She says few times a day she developed episodes of feeling like she is near syncopal. She denied associated chest pain or palpitations. She says she usually sits and it resolves in half a minute or so. She was having a lot of shoulder pain and about 2 weeks ago was diagnosed with polymyalgia rheumatica by Dr. Santizo and started on prednisone, she thinks those pains have improved somewhat. She saw nurse practitioner, Piedad Villafuerte, a couple of weeks ago and was thought that her lightheadedness might be related to the amiodarone and it was reduced from 100 to 50 mg a day. She says she is very limited by balance and just walked short distances in the house. She was able to walk from the bed to the bathroom and her room today without problem. She does not even walk a block ordinarily. PAST MEDICAL HISTORY: Includes severe peripheral vascular disease including carotid endarterectomies. CT angio from December 2016 revealed extensive atherosclerosis of the aortic arch and proximal cephalic vessels, calcified proximal left renal artery with [id number] stenosis of the left subclavian artery proximal to the left vertebral. Emphysema was noted and in December 2014 shows that a CTA of her abdomen, which revealed high-grade ostial stenosis of the celiac access and superior mesenteric artery with mild worsening compared to 2013, high-grade stenosis of bilateral renal arteries, bilateral aortic bifurcation through the femoral arterial bypass graft patent. No aortic aneurysm, moderate bilateral effusion with partial right lower lobe and gross complete left lower lobe atelectasis. There is a history of hypertension; tobacco use, discontinued 16 years ago. She had a right carotid endarterectomy in February 2015 at [facility] complicated by hematoma and hoarseness and required prolonged convalescence and a [facility]. She also developed GI bleed in February and was thought to be diverticular. I do not have the records, but she was seen at [facility]. She has aortic stenosis and mitral regurgitation and mitral stenosis. She apparently was evaluated by Dr. Carrillo and it was felt that her valvular disease was moderate back in December 2016. She has chronic renal insufficiency, anemia, non-ST elevation [place] in October 2015 with a cath showing irregularities of the LAD, 50% occlusion of the left circumflex, right coronary artery at 30% proximal followed by 40% more distal occlusions. She has had peripheral vascular disease with bilateral fem- pop surgery. Ventricular tachycardia in the setting of hypokalemia, cardiac arrest in the distant past. Valvular heart disease. As mentioned above, hypertension, dyslipidemia, chronic headaches, epistaxis requiring multiple interventions by her ENT, Dr. Cornell. Orthostatic hypotension at one point, on [facility]. She had a GI bleed in April 2015 requiring 2 units as well as bleeding in February 2018. B12 deficiency, chronic renal insufficiency. PAST SURGICAL HISTORY: Include carotid endarterectomy on the left in 2003, on the right in February 2018; femoral bypass bilaterally in 1996; cholecystectomy in 94; hysterectomy in 84; tubal ligation in 74, septoplasty in 99; and additional surgeries for epistaxis; and ligation of the internal maxillary arteries in 99. MEDICATIONS: Her medications as an inpatient include: 1. Acetaminophen. 2. Amiodarone 50 mg a day. 3. Atorvastatin 40. 4. Citalopram 20 mg a day. 5. Clonazepam 1 mg at bedtime p.r.n. 6. Plavix 75 mg q.p.m. 7. Ferrous sulfate 325 b.i.d. just started. 8. Gabapentin 600 mg at bedtime. 9. Magnesium oxide 400 mg at night. 10. Melatonin 3 mg at night p.r.n. 11. Metoprolol tartrate 4.5 q. 12 started tonight. 12. Zofran p.r.n. 13. Prednisone 20 mg q.a.m. 14. Tramadol 25 mg q.8 p.r.n. ALLERGIES: Include intolerances of ASPIRIN due to bleeding, KEFLEX, CHESTNUTS, PEANUTS, MSG, METALS lead to rash, IBUPROFEN. FAMILY HISTORY: Includes 1 sister who is alive, 1 sister in MVA. SOCIAL HISTORY: She denies caffeine use or alcohol use. She is , has 2 adult sons. She raised her family, did not work outside of the house. She is accompanied by her . REVIEW OF SYSTEMS: Review of systems x10 was negative except as above. PHYSICAL EXAM: She is a well-developed, well-nourished female, appearing frail. Weighs 113 pounds. Blood pressure 191/72, O2 sats 100% on room air. Heart rate is 78. No significant JVD. Carotid somewhat delayed diminished. Extraocular muscles intact. Sclerae anicteric. No cervical adenopathy or thyromegaly. Cardiac Exam: S1, S2 with 3/6 systolic ejection murmur at the base and 3/6 holosystolic murmur at the apex, this is a single S2. Chest: Clear. No CVAT, kyphotic. Abdomen: Bowel sounds present, nontender. No hepatosplenomegaly. Femoral pulses with bruits bilaterally. Distal pulses diminished but present. Motor strength 5/5 bilaterally. Deep tendon reflexes 2 /4. Alert and oriented x3. Poor skin turgor. DIAGNOSTIC STUDIES/LAB DATA: Labs include white count of 11.7, hemoglobin of 8.7, hematocrit of 29, MCV low at 79, platelet count 151. Sodium 141, potassium 4.3, creatinine was 1.59, mag of 1.9. Iron is less than 15, 4% iron biding sat. Troponin was 0.07. A second troponin was 0.06. Her BNP was elevated at 680. TSH was normal. Chest x-ray by report revealed no active disease and EKG revealed sinus rhythm with LVH and ST-T changes. This was without repolarization abnormalities and rule out ischemia. There was also ST elevations anteriorly, however, this looked similar to her previous EKG of 05/09, which showed similar findings. Her EKG from February 2018 revealed more pronounced anterior T-wave inversions. Of note, in December her troponin was 0.05 and in December 2016 her troponin was bumped to 0.81. IMPRESSION: My impression is that Ms. Gutierrez has multiple medical problems including severe and diffuse atherosclerotic disease; hypertension; coronary artery disease; history of ventricular tachycardia with hypokalemia, on amiodarone; iron-deficiency anemia; gastrointestinal bleeding of unclear etiology; and polymyalgia rheumatica. I explained to her and her that although the chest pain may be ischemic, it could be related to other issues including GI upset. If indeed it is ischemic, interventional options are limited given her vascular disease and anemia and at times she has epistaxis, gastrointestinal bleeding. She also has renal insufficiency, which increased her risk for renal failure had invasive procedure. It is possible that the prednisone has contributed to either worsening anemia or GI upset. She also may have had progression of valvular disease. PLAN/RECOMMENDATIONS: For the time being, I recommended the followin. Given the high risk of any interventions, I would recommend conservative approach. I would suggest transfusion to try to relieve the anemia and decrease her myocardial demand. I would suggest adding a low-dose of beta-mercedes as you are doing. Would trend her troponins as you are doing. We will follow serial EKGs, would obtain a repeat echo to re-evaluate her LV function and valvular function. Would consider supplementing her iron p.o. and perhaps IV if necessary. Would consider repeat GI evaluation given her ongoing anemia. She did have a nuclear stress test yesterday. Unfortunately, she was unable to raise her arm, which limited the interpretation. She was felt to have a poor quality study due to inability to raise her arms and she has small fixed inferolateral defect with normal wall motion and was felt to be a low risk study. The defect was new compared to 2015. Would also check sed rate, CRP. I would raise possibility that she could be related to a pericardial inflammation. Overall prognosis is guarded. She and her expressed to me that she would not be wanted to stayed on life support for a prolonged period of time, but is willing to be resuscitated. I did explain to her that as her valvular and arterial heart disease progress and peripheral vascular disease progresses likelihood of interventions for her coronary disease, there less likely be options for intervention without high risk. [id number]/[facility] #: [id number] [facility] CENTERRajesh
== END 2018-07-08 14:39 | disposition home or self-care (01) | DRG 281 ==
LOC: ED 15:21 → MEDTELE 17:54
PROVIDERS: ADMIT Hospitalist; ATTEND Internal Medicine
PROC: 30233N1 Transfusion of Nonautologous Red Blood Cells into Peripheral Vein, Percutaneous Approach (ICD-10-PCS; principal; 2018-07-07)
DX: I21.A1 Myocardial infarction type 2 (principal); G45.8 Other transient cerebral ischemic attacks and related syndromes; I77.4 Celiac artery compression syndrome; I47.2 Ventricular tachycardia; D50.9 Iron deficiency anemia, unspecified; M35.3 Polymyalgia rheumatica; I25.119 Atherosclerotic heart disease of native coronary artery with unspecified angina pectoris; I13.10 Hypertensive heart and chronic kidney disease without heart failure, with stage 1 through stage 4 chronic kidney disease, or unspecified chronic kidney disease; N18.9 Chronic kidney disease, unspecified; I08.0 Rheumatic disorders of both mitral and aortic valves; I70.1 Atherosclerosis of renal artery; I44.7 Left bundle-branch block, unspecified; F41.9 Anxiety disorder, unspecified; E78.5 Hyperlipidemia, unspecified; I95.1 Orthostatic hypotension; K58.9 Irritable bowel syndrome, unspecified; R07.9 Chest pain, unspecified; F32.9 Major depressive disorder, single episode, unspecified; K21.9 Gastro-esophageal reflux disease without esophagitis; M54.89 Other dorsalgia; M54.2 Cervicalgia; I73.9 Peripheral vascular disease, unspecified; Z79.1 Long term (current) use of non-steroidal anti-inflammatories (NSAID); Z79.02 Long term (current) use of antithrombotics/antiplatelets; Z79.52 Long term (current) use of systemic steroids; Z79.899 Other long term (current) drug therapy; Z88.6 Allergy status to analgesic agent; Z88.8 Allergy status to other drugs, medicaments and biological substances; Z82.49 Family history of ischemic heart disease and other diseases of the circulatory system; Z87.891 Personal history of nicotine dependence; I25.2 Old myocardial infarction; Z91.018 Allergy to other foods; Z91.048 Other nonmedicinal substance allergy status
CPT/HCPCS: 36415; 71045; 80048; 80053; 81003; 81015; 82272; 82533; 82550; 82553; 82607; 82728; 82746; 83010; 83540; 83550; 83605; 83615; 83735; 83874; 83880; 84443; 84484; 85014; 85018; 85025; 85610; 85652; 85730; 86140; 86850; 86880; 86900; 86901; 86922; 87086; 93005; 99284; A9270-GY; J2916; J7512

== ENCOUNTER 2018-08-31 17:15 | Emergency (ER) | payer MEDICARE, OTHER ==
[2018-08-31 19:40] LABS: ABS Basophils 0.1 10^3/ul (0-0.2); ABS Eosinophils 0 10^3/ul (0-0.6); ABS Lymphocytes 0.7 10^3/ul (1.0-4.8); ABS Monocytes 0.2 10^3/ul (0-0.8); ABS Neutrophils 10.7 10^3/ul (1.5-7.7); ABS Nucleated RBC 0 10^3/ul; Eosinophil % 0.2 % (0-6); Hematocrit 40 % (35-47); Hemoglobin 12.3 g/dl (12.0-16.0); Lymphocyte % 6.3 % (25-47); Mean Corpuscular HGB Conc 31 g/dl (31-36); Mean Corpuscular Hemoglobin 30 pg (27-31); Mean Corpuscular Volume 95 fL (80-97); Mean Platelet Volume 9.4 um3 (7.4-10.4); Nucleated Red Blood Cells % 0; Platelet Count 188 10^3/ul (150-450); Red Blood Count 4.18 10^6/ul (4.00-5.40); Red Cell Distribution Width 24 % (10.5-15); White Blood Count 11.7 10^3/ul (3.5-10.8)
[2018-08-31 19:57] LABS: EGFR Non-African American 31.3 (>60)
--- NOTE | 2018-08-31 20:52 | ED ---
GI/ HPI - HPI Summary HPI Summary: The patient is an 83 y/o F presenting to [facility] accompanied by with a chief complaint of diffuse abd cramping and hematochezia with diarrhea starting last night. She wasn't feeling well last night after eating dinner, which is when the abd pain started. She then had to get up multiple times throughout the night to have loose stools, which she noticed were darker than normal and had dark red blood in them. She has had similar experiences with dark stools because she takes and iron supplement that has made her stool melena-like before. She talked to her PCP today who told her to come to the ED. She currently does not have any pain, and her diarrhea has been resolved since this morning. She denies hematuria, nausea, and vomiting. She has hx of hysterectomy and cholecystectomy. - History of Current Complaint Chief Complaint: EDGIBleed Time Seen by Provider: 08/31/18 20:27 Stated Complaint: ABD PAIN/DIARRHEA Hx Obtained From: Patient Hx Last Menstrual Period: years ago. Onset/Duration: Started Hours Ago - last night, Resolved Timing: Lasting Hours - over the night Severity: Moderate Current Severity: None Vaginal Bleeding Description: Dark Red Pain Intensity: 0 Location of Pain: Diffuse Pain Characteristics: Cramping Associated Signs and Symptoms: Positive: Bright Red Blood w/Stool, Diarrhea, Abdominal Pain - cramping. Negative: Nausea, Vomiting, Hematuria Aggravating Factor(s): Nothing Alleviating Factor(s): Nothing - Additional Pertinent History Primary Care Physician: MELQUIADES - Allergy/Home Medications Allergies/Adverse Reactions: Allergies Allergy/AdvReac Type Severity Reaction Status Date / Time cephalexin Allergy GI Upset Verified 08/31/18 18:16 ibuprofen Allergy Nausea Verified 08/31/18 18:16 METALS Allergy Unknown Rash Uncoded 08/31/18 18:16 CHESTNUTS Allergy LIPS SWELL Uncoded 08/31/18 18:16 AND ARE VERY PAINFUL PEANUTS Allergy Swelling Uncoded 08/31/18 18:16 Of Face,Lips,& Throat SEASONAL Allergy STUFFY Uncoded 08/31/18 18:16 HAYFEVER/ENVIRONMENTAL NOSE, WATERY EYES msg AdvReac Mild headache; Uncoded 08/31/18 18:16 jitters Home Medications: Home Medications Ferrous Sulfate TAB* 325 mg PO BID 08/31/18 [History Confirmed 08/31/18] PMH/Surg Hx/FS Hx/Imm Hx Endocrine/Hematology History: Reports: Hx Anticoagulant Therapy, Hx Anemia - RECIEVED IRON INFUSIONS IN PAST Denies: Hx Diabetes, Hx Thyroid Disease Cardiovascular History: Reports: Hx Angina - RARELY USES NITRO, Hx Cardiomegaly , Hx Congestive Heart Failure, Hx Coronary Artery Disease - ON MED, Hx Hypercholesterolemia, Hx Hypotension - current, Hx Myocardial Infarction - 2015 , Hx Peripheral Vascular Disease, 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, Other Cardiovascular Problems/Disorders - fem pop bypass 1996 [facility] Dr. godwin left carotid artery 2014 right carot Denies: Hx Deep Vein Thrombosis, Hx Hypertension, Hx Pacemaker/ICD Respiratory History: Reports: Hx Asthma - POSSIBLY IN THE PAST, Hx Pneumonia Denies: Hx Chronic Obstructive Pulmonary Disease (COPD), Hx Lung Cancer GI History: Reports: Other GI Disorders - CHRONIC CONSTIPATION-TAKES LAXATIVE DAILY peg tube 03/12/18 Denies: Hx Gall Bladder Disease, Hx Gastroesophageal Reflux Disease, Hx Gastrointestinal Bleed, Hx Ulcer, Hx Urosepsis History: Denies: Hx Kidney Stones, Hx Renal Disease, Other Problems/Disorders Musculoskeletal History: Reports: Hx Arthritis - HANDS & FEET Denies: Hx Rheumatoid Arthritis, Hx Osteoporosis Sensory History: Reports: Hx Cataracts - BILAT, Hx Contacts or Glasses Denies: Hx Hearing Aid Opthamlomology History: Reports: Hx Cataracts - BILAT, Hx Contacts or Glasses Neurological History: Reports: Hx Headaches - TAKES TRAMADOL PRN, Hx Migraine - last episode 1 yr ago 2017, Hx Nerve Disease - see below, Other Neuro Impairments/Disorders - 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 type. Hx Chemotherapy: No Hx Radiation Therapy: No - Surgical History Surgery Procedure, Year, and Place: Hysterectomy, 1983, [facility]. Choleycystectomy, 1993, [facility]. nose surgery .DR CHIN. FERNANDO.Femoral bypass, 1996, [facility]. Left carotid endardectomy 2013. Right first toe, first joint replacement, 2005, [facility]. LIGATION OF ETHMOIDAL INTERNAL MAXILIARY ARTERIES 2007. MYLEOGRAM. LASER SURGERY FOR EPISTAXIS X 6 OVER PAST 10 YEARS. RIGHT CAROTID ENDARECTOMY 03/01/18 [facility]. PEG TUBE INSERTION 03/12/18 [facility]. NASAL EPISTAXIS [facility] DR. CHIN Hx Anesthesia Reactions: No - Immunization History Date of Tetanus Vaccine: up to date Date of Influenza Vaccine: up to date Infectious Disease History: No Infectious Disease History: Denies: Hx Clostridium Difficile, Hx Hepatitis, Hx Human Immunodeficiency Virus (HIV), Hx of Known/Suspected MRSA, Hx Shingles, Hx Tuberculosis, Hx Known/ Suspected VRE, Hx Known/Suspected VRSA, History Other Infectious Disease, Traveled Outside the [place] in Last 30 Days - Family History Known Family History: Positive: Hypertension Negative: Cardiac Disease - Social History Alcohol Use: None Alcohol Amount: a glass of wine a few times a week Hx Substance Use: No Substance Use Type: Reports: None Hx Tobacco Use: Yes Smoking Status (MU): Former Smoker Type: Cigarettes Amount Used/How Often: 1 PPD Length of Time of Smoking/Using Tobacco: 47 YEARS Have You Smoked in the Last Year: No Review of Systems Positive: Abdominal Pain - diffuse cramping, Diarrhea, Other - hematochezia Negative: hematuria All Other Systems Reviewed And Are Negative: Yes Physical Exam - Summary Physical Exam Summary: Appearance: Well-appearing, Well-nourished, lying in bed comfortably Skin: Warm, dry, no obvious rash Eyes: sclera anicteric, no conjunctival pallor ENT: mucous membranes moist, pharynx appears normal Neck: Supple, nontender Respiratory: Clear to auscultation, no signs of respiratory distress Cardiovascular: Normal S1, S2. No murmurs. Normal distal pulses in tibial and radial bilaterally. Abdomen: Soft, nontender, normal active bowel sounds present Musculoskeletal: Normal, Strength/ROM Intact Neurological: A&Ox3, awake and alert, mentation is normal, speech is fluent and appropriate Psychiatric: affect is normal, does not appear anxious or depressed Triage Information Reviewed: Yes Vital Signs On Initial Exam: Initial Vitals Temp Pulse Resp BP Pulse Ox 97.4 F 69 17 126/76 94 08/31/18 18:12 08/31/18 18:12 08/31/18 18:12 08/31/18 18:12 08/31/18 18:12 Vital Signs Reviewed: Yes Diagnostics - Vital Signs Vital Signs Temp Pulse Resp BP Pulse Ox 08/31/18 20:17 97.5 F 73 16 117/76 94 08/31/18 18:12 97.4 F 69 17 126/76 94 - Laboratory Lab Results: Lab Results 08/31/18 08/31/18 08/31/18 Range/Units 19:32 19:32 19:32 WBC 11.7 H (3.5-10.8) 10^3/ul RBC 4.18 (4.00-5.40) 10^6/ul Hgb 12.3 (12.0-16.0) g/dl Hct 40 (35-47) % MCV 95 (80-97) fL MCH 30 (27-31) pg MCHC 31 (31-36) g/dl RDW 24 H (10.5-15) % Plt Count 188 (150-450) 10^3/ul MPV 9.4 (7.4-10.4) um3 Neut % (Auto) 91.4 H (38-83) % Lymph % (Auto) 6.3 L (25-47) % [place] % (Auto) 1.7 (0-7) % Eos % (Auto) 0.2 (0-6) % Baso % (Auto) 0.4 (0-2) % Absolute Neuts (auto) 10.7 H (1.5-7.7) 10^3/ul Absolute Lymphs (auto) 0.7 L (1.0-4.8) 10^3/ul Absolute Monos (auto) 0.2 (0-0.8) 10^3/ul Absolute Eos (auto) 0 (0-0.6) 10^3/ul Absolute Basos (auto) 0.1 (0-0.2) 10^3/ul Absolute Nucleated RBC 0 10^3/ul Nucleated RBC % 0 Sodium 144 (135-145) mmol/L Potassium 5.1 H (3.5-5.0) mmol/L Chloride 108 (101-111) mmol/L Carbon Dioxide 29 (22-32) mmol/L Anion Gap 7 (2-11) mmol/L BUN 35 H (6-24) mg/dL Creatinine 1.58 H (0.51-0.95) mg/dL Est GFR ( Amer) 37.9 (>60) Est GFR (Non-Af Amer) 31.3 (>60) BUN/Creatinine Ratio 22.2 H (8-20) Glucose 118 H (70-100) mg/dL Lactic Acid 2.9 H* (0.5-2.0) mmol/L Calcium 9.4 (8.6-10.3) mg/dL Total Bilirubin 1.10 H (0.2-1.0) mg/dL AST 62 H (13-39) U/L ALT 102 H (7-52) U/L Alkaline Phosphatase 62 (34-104) U/L C-Reactive Protein 6.17 (<8.01) mg/L Total Protein 6.7 (6.4-8.9) g/dL Albumin 4.0 (3.2-5.2) g/dL Globulin 2.7 (2-4) g/dL Albumin/Globulin Ratio 1.5 (1-3) Lipase 46 (11.0-82.0) U/L Result Diagrams: 08/31/18 19:32 08/31/18 19:32 Lab Statement: Any lab studies that have been ordered have been reviewed, and results considered in the medical decision making process. GIGU Course/Dx - Diagnoses Provider Diagnoses: Diarrhea, GI bleed Discharge - Sign-Out/Discharge Documenting (check all that apply): Patient Departure - Patient will be discharged home. - Discharge Plan Condition: Good Disposition: HOME Patient Education Materials: Acute Diarrhea (ED) Referrals: Grecia Anderson MD [Primary Care Provider] - Additional Instructions: Your hemoglobin level tonight is normal, and your symptoms appear to be resolved. Accordingly I am reluctant to pursue further workup, but if you do get recurrence of this you should either come back here or see your regular doctor, depending on how severe your symptoms might be. - Billing Disposition and Condition Condition: GOOD Disposition: Home - Attestation Statements Document Initiated by Locoibkarrie: Yes Documenting Scribe: Nataly Hunter Provider For Whom Aftab is Documenting (Include Credential): Dr. Qasim Sow MD Scribe Attestation: Nataly Barahona scribed for Dr. Qasim Sow MD on 09/01/18 at 0135. Scribe Documentation Reviewed: Yes Provider Attestation: The documentation as recorded by the Nataly hall accurately reflects the service I personally performed and the decisions made by me, Dr. Qasim Sow MD
[2018-08-31 21:25] VITALS: BP 146/74
== END 2018-08-31 21:27 | disposition home or self-care (01) ==
LOC: ED 17:15
DX: K92.2 Gastrointestinal hemorrhage, unspecified (principal); R19.7 Diarrhea, unspecified; Z79.01 Long term (current) use of anticoagulants; I20.9 Angina pectoris, unspecified; I10 Essential (primary) hypertension; I25.2 Old myocardial infarction; F41.9 Anxiety disorder, unspecified; F32.9 Major depressive disorder, single episode, unspecified; Z85.828 Personal history of other malignant neoplasm of skin; Z87.891 Personal history of nicotine dependence
CPT/HCPCS: 36415; 80053; 83605; 83690; 85025; 86140; 99283

== ENCOUNTER 2019-01-13 12:52 | Emergency (ER) | payer MEDICARE, OTHER ==
--- NOTE | 2019-01-13 13:24 | ED ---
Throat Pain/Nasal Congestion - HPI Summary HPI Summary: This patient is an 83 year old female brought in by EMS to [facility] with a CC of epistaxis that began this morning but has since resolved. Currently her only complaint is a AVERY and she reports the pain 06/05 in severity. She states she has a history of epistaxis but is unsure what causes them. She stopped the bleeding by holding pressure and states she still has drainage down the back of her throat. She denies light headedness. - History of Current Complaint Chief Complaint: EDEpistaxis Time Seen by Provider: 01/13/19 12:58 Hx Obtained From: Patient Onset/Duration: Resolved Severity: Mild Associated Signs And Symptoms: Positive: Negative - light headedness - Allergies/Home Medications Allergies/Adverse Reactions: Allergies Allergy/AdvReac Type Severity Reaction Status Date / Time monosodium glutamate AdvReac Mild headache, Verified 01/13/19 13:07 jitters cephalexin AdvReac GI Upset Verified 01/13/19 13:07 ibuprofen AdvReac Nausea Verified 01/13/19 13:07 CHESTNUTS Allergy Severe LIPS SWELL Uncoded 12/18/18 10:29 AND ARE VERY PAINFUL METALS Allergy Unknown Rash Uncoded 12/18/18 08:50 SEASONAL Allergy STUFFY Uncoded 12/18/18 08:50 HAYFEVER/ENVIRONMENTAL NOSE, WATERY EYES PMH/Surg Hx/FS Hx/Imm Hx Endocrine/Hematology History: Reports: Hx Anticoagulant Therapy, Hx Anemia - RECIEVED IRON INFUSIONS IN PAST Denies: Hx Diabetes, Hx Thyroid Disease Cardiovascular History: Reports: Hx Angina - RARELY USES NITRO, Hx Cardiomegaly , Hx Congestive Heart Failure, Hx Coronary Artery Disease - ON MED, Hx Hypercholesterolemia, Hx Hypotension - current, Hx Hypertension, Hx Myocardial Infarction - 2015, Hx Peripheral Vascular Disease, 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 left carotid artery 2013 right carot Denies: Hx Deep Vein Thrombosis, Hx Pacemaker/ICD Respiratory History: Reports: Hx Asthma - POSSIBLY IN THE PAST, Hx Pneumonia Denies: Hx Chronic Obstructive Pulmonary Disease (COPD), Hx Lung Cancer GI History: Reports: Other GI Disorders - CHRONIC CONSTIPATION-TAKES LAXATIVE DAILY peg tube 03/12/18 Denies: Hx Gall Bladder Disease, Hx Gastroesophageal Reflux Disease, Hx Gastrointestinal Bleed, Hx Ulcer, Hx Urosepsis History: Reports: Hx Chronic Renal Failure Denies: Hx Kidney Stones, Hx Renal Disease, Other Problems/Disorders Musculoskeletal History: Reports: Hx Arthritis - HANDS & FEET Denies: Hx Rheumatoid Arthritis, Hx Osteoporosis Sensory History: Reports: Hx Cataracts - BILAT, Hx Contacts or Glasses Denies: Hx Hearing Aid Opthamlomology History: Reports: Hx Cataracts - BILAT, Hx Contacts or Glasses Neurological History: Reports: Hx Headaches - TAKES TRAMADOL PRN, Hx Migraine - last episode 1 yr ago 2017, Hx Nerve Disease - see below, Other Neuro Impairments/Disorders - 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 type. Hx Chemotherapy: No Hx Radiation Therapy: No - Surgical History Surgery Procedure, Year, and Place: [place] [facility] [place] [facility] [place]. [facility].Femoral bypass, [place], [facility] [place] Left carotid endardectomy 2013. Right first toe, first joint replacement, 2005, [facility] [place] LIGATION OF ETHMOIDAL INTERNAL MAXILIARY ARTERIES 2007. MYLEOGRAM. LASER SURGERY FOR EPISTAXIS X 6 OVER PAST 10 YEARS. RIGHT CAROTID ENDARECTOMY 03/01/18 [email or web address] PEG TUBE INSERTION 03/12/18 [facility] [email or web address] NASAL [place] [facility] [place] Hx Anesthesia Reactions: No - Immunization History Date of Tetanus Vaccine: up to date Date of Influenza Vaccine: up to date Infectious Disease History: No Infectious Disease History: Denies: Hx Clostridium Difficile, Hx Hepatitis, Hx Human Immunodeficiency Virus (HIV), Hx of Known/Suspected MRSA, Hx Shingles, Hx Tuberculosis, Hx Known/ Suspected VRE, Hx Known/Suspected VRSA, History Other Infectious Disease, Traveled Outside the [place] in Last 30 Days - Family History Known Family History: Positive: Hypertension Negative: Cardiac Disease - Social History Alcohol Use: None Alcohol Amount: a glass of wine a few times a week Hx Substance Use: No Substance Use Type: Reports: None Hx Tobacco Use: Yes Smoking Status (MU): Former Smoker Type: Cigarettes Amount Used/How Often: 1 PPD Length of Time of Smoking/Using Tobacco: 47 YEARS Have You Smoked in the Last Year: No Review of Systems Positive: Epistaxis Neurological: Negative - dizziness Positive: Headache All Other Systems Reviewed And Are Negative: Yes Physical Exam - Summary Physical Exam Summary: GENERAL: Patient is a well-developed and nourished F who is lying comfortable in the stretcher. Patient is not in any acute respiratory distress. HEAD AND FACE: Normocephalic EYES: PERRLA, EOMI x 2. EARS: Hearing grossly intact. MOUTH: there is blood in the oropharynx there is no active bleeding. There is blood in bilateral nostrils that is worse on the left. NECK: Supple, trachea is midline, no adenopathy, no JVD, no carotid bruit. CHEST: Symmetric, no tenderness at palpation LUNGS: Clear to auscultation bilaterally. No wheezing or crackles. CVS: Regular rate and rhythm, S1 and S2 present, no murmurs or gallops appreciated. ABDOMEN: Soft, non-tender. Bowel sounds are normal. No abdominal abnormal pulsations. EXTREMITIES: Full ROM in all major joints, no edema, no cyanosis or clubbing. NEURO: Alert and oriented x 3. No acute neurological deficits. Speech is normal and follows commands. SKIN: Dry and warm Triage Information Reviewed: Yes Vital Signs On Initial Exam: Initial Vitals Temp Pulse Resp BP Pulse Ox 98.9 F 78 16 129/68 95 01/13/19 13:00 01/13/19 13:00 01/13/19 13:00 01/13/19 13:00 01/13/19 13:00 Vital Signs Reviewed: Yes Diagnostics - Vital Signs Vital Signs Temp Pulse Resp BP Pulse Ox 01/13/19 13:00 98.9 F 78 16 129/68 95 - Laboratory Result Diagrams: 01/13/19 13:40 Lab Statement: Any lab studies that have been ordered have been reviewed, and results considered in the medical decision making process. EENT Course/Dx - Course Assessment/Plan: This patient is an 83 year old female brought in by EMS to [facility] with a CC of epistaxis that began this morning but has since resolved. Bloodwork obtained and there was nothing concerning. She was observed in the ED without reoccurrence. The patient is hemodynamically stable and with discharged home. - Diagnoses Provider Diagnoses: Epistaxis Discharge - Sign-Out/Discharge Documenting (check all that apply): Patient Departure Patient Received Moderate/Deep Sedation with Procedure: No - Discharge Plan Condition: Stable Disposition: HOME Patient Education Materials: Nosebleed (ED) Referrals: Grecia Anderson MD [Primary Care Provider] - Additional Instructions: Follow up with your primary care physician in 1-3 days. RETURN TO THE EMERGENCY DEPARTMENT FOR CHANGING OR WORSENING SYMPTOMS. - Billing Disposition and Condition Condition: STABLE Disposition: Home - Attestation Statements Document Initiated by Scribe: Yes Documenting Scribe: Paolo Masters Provider For Whom Loco[employer] is Documenting (Include Credential): Azul Carolina MD Scribe Attestation: Paolo Barahona , scribed for Azul Carolina MD on 01/14/19 at 1750. Scribe Documentation Reviewed: Yes Provider Attestation: The documentation as recorded by the Paolo hall accurately reflects the service I personally performed and the decisions made by Azul huertas MD Status of Scribe Document: Viewed
[2019-01-13 13:48] LABS: ABS Basophils 0.1 10^3/ul (0-0.2); ABS Eosinophils 0.1 10^3/ul (0-0.6); ABS Lymphocytes 0.8 10^3/ul (1.0-4.8); ABS Monocytes 0.6 10^3/ul (0-0.8); ABS Neutrophils 10.6 10^3/ul (1.5-7.7); ABS Nucleated RBC 0 10^3/ul; Eosinophil % 0.7 %; Hematocrit 36 % (35-47); Hemoglobin 11.4 g/dl (12.0-16.0); Lymphocyte % 6.4 %; Mean Corpuscular HGB Conc 32 g/dl (31-36); Mean Corpuscular Hemoglobin 30 pg (27-31); Mean Corpuscular Volume 95 fL (80-97); Mean Platelet Volume 10.7 fL (7.4-10.4); Nucleated Red Blood Cells % 0; Platelet Count 214 10^3/ul (150-450); Red Blood Count 3.78 10^6/ul (4.00-5.40); Red Cell Distribution Width 15 % (10.5-15); White Blood Count 12.2 10^3/ul (3.5-10.8)
[2019-01-13 13:57] LABS: Activated Partial Thrombo Time 24.4 seconds (26.0-36.3); INR 0.99 (0.77-1.02)
[2019-01-13 15:26] VITALS: BP 151/82
== END 2019-01-13 15:27 | disposition home or self-care (01) ==
LOC: ED 12:52
DX: R04.0 Epistaxis (principal); R51 Headache; I95.9 Hypotension, unspecified; I25.119 Atherosclerotic heart disease of native coronary artery with unspecified angina pectoris; I11.0 Hypertensive heart disease with heart failure; Z79.01 Long term (current) use of anticoagulants; K59.09 Other constipation; F41.9 Anxiety disorder, unspecified; F32.9 Major depressive disorder, single episode, unspecified; Z96.698 Presence of other orthopedic joint implants; Z88.6 Allergy status to analgesic agent; Z88.1 Allergy status to other antibiotic agents; Z91.018 Allergy to other foods; Z91.048 Other nonmedicinal substance allergy status; Z87.891 Personal history of nicotine dependence
CPT/HCPCS: 36415; 85025; 85610; 85730; 99282

== ENCOUNTER 2019-01-29 08:35 | Emergency (ER) | payer MEDICARE, OTHER ==
--- NOTE | 2019-01-29 08:52 | UC ---
General HPI - HPI Summary HPI Summary: Patient presents to urgent care with her . Patient's an 83-year-old female with complex medical history including coronary disease, hypertension, high cholesterol, CHF, and creatinine adrenal disease. Patient states she woke from sleep at 6:30 this morning with chest pain and feeling like her heart was pounding. Patient states at this time shows without short of breath. Patient states since this time she continues to feel short of breath although the pounding has improved. Patient denies nausea or vomiting. Patient without fevers, chills, rash. Patient did take her medications this morning. Patient was hospitalized in November for chest pain. Patient medications reviewed this visit. - History of Current Complaint Stated Complaint: TROUBLE BREATHING Time Seen by Provider: 01/29/19 08:38 Hx Obtained From: Patient, Family/Window Shade Estimator, Medical Records Hx Last Menstrual Period: years ago. Onset/Duration: Sudden Onset Onset Severity: Mild - Allergy/Home Medications Allergies/Adverse Reactions: Allergies Allergy/AdvReac Type Severity Reaction Status Date / Time monosodium glutamate AdvReac Mild headache, Verified 01/29/19 09:02 jitters cephalexin AdvReac GI Upset Verified 01/29/19 09:02 ibuprofen AdvReac Nausea Verified 01/29/19 09:02 CHESTNUTS Allergy Severe LIPS SWELL Uncoded 01/29/19 09:02 AND ARE VERY PAINFUL METALS Allergy Unknown Rash Uncoded 01/29/19 09:02 SEASONAL Allergy STUFFY Uncoded 01/29/19 09:02 HAYFEVER/ENVIRONMENTAL NOSE, WATERY EYES PMH/Surg Hx/FS Hx/Imm Hx Previously Healthy: Yes Cardiovascular History: Cardiac Disease, Hypertension Other History Of: Anticoagulant Therapy Negative For: HIV, Hepatitis B, Hepatitis C - Surgical History Surgical History: Yes Surgery Procedure, Year, and Place: Hysterectomy, 1983, [facility] [place]. Choleycystectomy, 1993, [facility] [place]. nose surgery .DR CHIN. [place].Femoral bypass, 1996, [facility] [place]. Left carotid endardectomy 2013. Right first toe, first joint replacement, 2005, [facility] [place]. LIGATION OF ETHMOIDAL INTERNAL MAXILIARY ARTERIES 2007. MYLEOGRAM. LASER SURGERY FOR EPISTAXIS X 6 OVER PAST 10 YEARS. RIGHT CAROTID ENDARECTOMY 03/01/18 [facility]. PEG TUBE INSERTION 03/12/18 [facility]. NASAL EPISTAXIS [facility] [place] DR. CHIN - Family History Known Family History: Positive: Hypertension, Non-Contributory Negative: Cardiac Disease - Social History Lives: With Family Alcohol Use: None Alcohol Amount: a glass of wine a few times a week Substance Use Type: None Smoking Status (MU): Former Smoker Type: Cigarettes Amount Used/How Often: 1 PPD Length of Time of Smoking/Using Tobacco: 47 YEARS Have You Smoked in the Last Year: No When Did the Patient Quit Smoking/Using Tobacco: 1996 - Immunization History Most Recent Influenza Vaccination: 2017 Most Recent Tetanus Shot: less than 10 years Most Recent Pneumonia Vaccination: 2007 Review of Systems All Other Systems Reviewed And Are Negative: Yes Constitutional: Positive: Negative Respiratory: Positive: Shortness Of Breath Cardiovascular: Positive: Palpitations, Chest Pain Is Patient Immunocompromised?: No Physical Exam - Summary Physical Exam Summary: Vital Signs Reviewed: Yes A+Ox3, no distress Eyes: Conjunctiva Clear, ANDIE. EOM intact and full ENT: Hearing grossly normal TM x 2 clear, mmoist, uvula midline, no exudate, no erythema Neck: Positive: Supple Respiratory: Positive: No respiratory distress, No accessory muscle use + CTA throughout no w/r Cardiovascular: RRR nl s1, s2 no m/r CBT <2 sec + 1+ edema LE b/l abd soft + BS nt/nd no guarding, no distension Musculoskeletal Exam: WILKERSON x 4 without difficulty Strength Intact, ROM Intact Neurological: Positive: Alert, + sensation throughout Psychological: Positive: Normal Response To Family Skin: Positive: no rash, no ecchymosis Triage Information Reviewed: Yes Course/Dx - Course Course Of Treatment: Patient presents to urgent care reporting woke up at 6 this morning with palpitations and chest discomfort. Patient states he also felt short of breath. Patient with a complex medical history. Upon arrival patient was oxygen level 92%. Patient placed on a stretcher on 2 L oxygen. Blood sugar was greater than 100. Patient's EKG shows sinus without acute ST-T wave changes compared to December 18, 2018. IV placed discussed with patient and spouse. We'll transfer the emergency department for further evaluation and treatment. Magdi contacted. Report given to Darlin Mancia in the emergency department. Patient and comfortable in agreement with plan. Pt's BP elevated - h/o similar - emergency condition - Diagnoses Provider Diagnosis: Chest pain, Shortness of breath, Chest discomfort Discharge - Sign-Out/Discharge Documenting (check all that apply): Patient Departure Signing out patient TO: Darlin Mancia - 9:05am All imaging exams completed and their final reports reviewed: No Studies - Discharge Plan Condition: Good Disposition: TRANS HIGHER LVL OF CARE FAC Referrals: Gercia Anderson MD [Primary Care Provider] - - Billing Disposition and Condition Condition: GOOD Disposition: Trans Higher Lvl of Care Fac
[2019-01-29 09:19] VITALS: BP 122/70
== END 2019-01-29 09:20 | disposition short-term general hospital (02) ==
LOC: UCEAST 08:35
DX: R07.9 Chest pain, unspecified (principal); R06.02 Shortness of breath; R07.89 Other chest pain; I25.10 Atherosclerotic heart disease of native coronary artery without angina pectoris; I10 Essential (primary) hypertension; E78.00 Pure hypercholesterolemia, unspecified; I50.9 Heart failure, unspecified; E27.8 Other specified disorders of adrenal gland; Z87.891 Personal history of nicotine dependence
CPT/HCPCS: 99213; G0463

== ENCOUNTER 2019-01-29 09:35 | Observation (INO) | payer MEDICARE, OTHER ==
[2019-01-29 10:09] LABS: ABS Basophils 0.1 10^3/ul (0-0.2); ABS Eosinophils 0.1 10^3/ul (0-0.6); ABS Lymphocytes 2.2 10^3/ul (1.0-4.8); ABS Monocytes 1.1 10^3/ul (0-0.8); ABS Neutrophils 10.8 10^3/ul (1.5-7.7); ABS Nucleated RBC 0 10^3/ul; Hematocrit 29 % (35-47); Hemoglobin 8.9 g/dl (12.0-16.0); Lymphocyte % 15.1 %; Mean Corpuscular HGB Conc 31 g/dl (31-36); Mean Corpuscular Hemoglobin 29 pg (27-31); Mean Corpuscular Volume 95 fL (80-97); Mean Platelet Volume 9.3 fL (7.4-10.4); Nucleated Red Blood Cells % 0; Platelet Count 233 10^3/ul (150-450); Red Blood Count 3.02 10^6/ul (4.00-5.40); Red Cell Distribution Width 17 % (10.5-15); White Blood Count 14.3 10^3/ul (3.5-10.8)
[2019-01-29 10:14] LABS: INR 0.97 (0.77-1.02)
[2019-01-29 10:30] LABS: CKMB ng/mL 3.6 ng/mL (0.6-6.3); Troponin I 0.05 ng/mL (<0.04)
[2019-01-29 10:32] LABS: Albumin 3.3 g/dL (3.2-5.2); Albumin/Globulin Ratio 1.4 (1-3); BUN/Creatinine Ratio 15.2 (8-20); C Reactive Protein 10.18 mg/L (<8.01); Calcium 8.5 mg/dL (8.6-10.3); EGFR African American 37.9 (>60); EGFR Non-African American 31.3 (>60); Globulin 2.4 g/dL (2-4); Magnesium 1.9 mg/dL (1.9-2.7); Potassium 3.9 mmol/L (3.5-5.0); Total Bilirubin 1.4 mg/dL (0.2-1.0); Total Protein 5.7 g/dL (6.4-8.9)
[2019-01-29] MEDS ORDERED: Furosemide IV* 10 MG/ML VIAL (40 MG) IV SLOW PU ONE (10:39)
[2019-01-29 11:03] LABS: TSH (Thyroid Stimulating Horm) 2.75 mcIU/mL (0.34-5.60)
--- NOTE | 2019-01-29 11:46 | ED ---
HPI Cardiac - HPI Summary HPI Summary: Patient is an 83-year-old female presenting to the ED from urgent care with complaint of feeling of heart palpitations upon awakening this morning as well as midsternal chest pressure which is all since resolved. She states the sternal chest pressure was present still in the urgent care, but this is resolved. She states symptoms were present for approximately one hour and resolved spontaneously. She states she had previous symptoms symptoms previous to this in which she was worked up for a STEMI, patient states she is unsure if she had an VA. Patient has a history of CAD, cardiac arrest, V. tach, hyperlipidemia, orthostatic hypotension, hypertension, aspiration pneumonia. She did not take nitroglycerin this morning. EKG obtained at urgent care was read as no stemi. She is currently no on diuretics. She denies any dizziness or increased work of breathing, or SOB. - History of Current Complaint Chief Complaint: EDDysrhythmPalp Stated Complaint: SOB Time Seen by Provider: 01/29/19 09:41 Hx Obtained From: Patient Hx Last Menstrual Period: years ago. Onset/Duration: Started Hours Ago Timing: Constant Initial Severity: Moderate Current Severity: Moderate Pain Intensity: 0 Pain Scale Used: 0-10 Numeric Chest Pain Location: Mid Sternal Chest Pain Radiates: No Aggravating Factor(s): Nothing Alleviating Factor(s): Nothing Associated Signs and Symptoms: Positive: Chest Pain, Other:. Negative: Anxiety , Recent Stress, Headaches, Numbness, Tingling, Productive Cough, Nonproductive Cough - Risk Factors Pulmonary Embolism Risk Factors: Negative - Fatigue Cardiac Risk Factors: Negative TAD Risk Factors: Negative AMI/ACS Risk Factors: Myocardial Infarction, Sedentary Lifestyle, Family History , Nitroglycerine Use, Dyslipidemia Tuberculosis Risk Factors: Negative - Additional Pertinent History Primary Care Physician: [id number] - Allergy/Home Medications Allergies/Adverse Reactions: Allergies Allergy/AdvReac Type Severity Reaction Status Date / Time monosodium glutamate AdvReac Mild headache, Verified 01/29/19 09:02 jitters cephalexin AdvReac GI Upset Verified 01/29/19 09:02 ibuprofen AdvReac Nausea Verified 01/29/19 09:02 CHESTNUTS Allergy Severe LIPS SWELL Uncoded 01/29/19 09:02 AND ARE VERY PAINFUL METALS Allergy Unknown Rash Uncoded 01/29/19 09:02 SEASONAL Allergy STUFFY Uncoded 01/29/19 09:02 HAYFEVER/ENVIRONMENTAL NOSE, WATERY EYES Home Medications: Home Medications Amiodarone HCl [Amiodarone HCl-] 50 mg PO DAILY 01/29/19 [History Confirmed 04/14] Melatonin (NF) 3 mg PO BEDTIME PRN 01/29/19 [History Confirmed 01/29/19] PMH/Surg Hx/FS Hx/Imm Hx Previously Healthy: No Endocrine/Hematology History: Reports: Hx Anticoagulant Therapy, Hx Anemia - RECIEVED IRON INFUSIONS IN PAST Denies: Hx Diabetes, Hx Thyroid Disease Cardiovascular History: Reports: Hx Angina - RARELY USES NITRO, Hx Cardiomegaly , Hx Congestive Heart Failure, Hx Coronary Artery Disease - ON MED, Hx Hypercholesterolemia, Hx Hypotension - current, Hx Hypertension, Hx Myocardial Infarction - 2014, Hx Peripheral Vascular Disease, 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 godwin left carotid artery 2013 right carot Denies: Hx Deep Vein Thrombosis, Hx Pacemaker/ICD Respiratory History: Reports: Hx Asthma - POSSIBLY IN THE PAST, Hx Pneumonia Denies: Hx Chronic Obstructive Pulmonary Disease (COPD), Hx Lung Cancer GI History: Reports: Other GI Disorders - CHRONIC CONSTIPATION-TAKES LAXATIVE DAILY peg tube 03/12/18 Denies: Hx Gall Bladder Disease, Hx Gastroesophageal Reflux Disease, Hx Gastrointestinal Bleed, Hx Ulcer, Hx Urosepsis History: Reports: Hx Chronic Renal Failure Denies: Hx Kidney Stones, Hx Renal Disease, Other Problems/Disorders Musculoskeletal History: Reports: Hx Arthritis - HANDS & FEET Denies: Hx Rheumatoid Arthritis, Hx Osteoporosis Sensory History: Reports: Hx Cataracts - BILAT, Hx Contacts or Glasses Denies: Hx Hearing Aid Opthamlomology History: Reports: Hx Cataracts - BILAT, Hx Contacts or Glasses Neurological History: Reports: Hx Headaches - TAKES TRAMADOL PRN, Hx Migraine - last episode 1 yr ago 2017, Hx Nerve Disease - see below, Other Neuro Impairments/Disorders - 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 type. Hx Chemotherapy: No Hx Radiation Therapy: No - Surgical History Surgery Procedure, Year, and Place: Hysterectomy, 1983, [facility] [place]. Choleycystectomy, 1993, [facility] [place]. nose surgery .DR CHIN. BILAT.Femoral bypass, 1996, [facility] [place]. Left carotid endardectomy 2013. Right first toe, first joint replacement, 2005, [facility] [place]. LIGATION OF ETHMOIDAL INTERNAL MAXILIARY ARTERIES 2007. MYLEOGRAM. LASER SURGERY FOR EPISTAXIS X 6 OVER PAST 10 YEARS. RIGHT CAROTID ENDARECTOMY 03/01/18 [facility]. PEG TUBE INSERTION 03/12/18 [facility]. NASAL EPISTAXIS [facility] [place] DR. CHIN Hx Anesthesia Reactions: No - Immunization History Date of Tetanus Vaccine: up to date Date of Influenza Vaccine: up to date Hx Pertussis Vaccination: No Immunizations Up to Date: Yes Infectious Disease History: No Infectious Disease History: Denies: Hx Clostridium Difficile, Hx Hepatitis, Hx Human Immunodeficiency Virus (HIV), Hx of Known/Suspected MRSA, Hx Shingles, Hx Tuberculosis, Hx Known/ Suspected VRE, Hx Known/Suspected VRSA, History Other Infectious Disease, Traveled Outside the in Last 30 Days - Family History Known Family History: Positive: Hypertension Negative: Cardiac Disease - Social History Occupation: Unemployed Lives: With Family Alcohol Use: None Alcohol Amount: a glass of wine a few times a week Hx Substance Use: No Substance Use Type: Reports: None Hx Tobacco Use: Yes Smoking Status (MU): Former Smoker Type: Cigarettes Amount Used/How Often: 1 PPD Length of Time of Smoking/Using Tobacco: 47 YEARS Have You Smoked in the Last Year: No Review of Systems Constitutional: Negative Negative: Fever, Chills, Fatigue, Skin Diaphoresis Positive: Palpitations, Chest Pain Negative: Shortness Of Breath, Cough Genitourinary: Negative Positive: no symptoms reported, see HPI Negative: Rash, Bruising Neurological: Negative All Other Systems Reviewed And Are Negative: Yes Physical Exam Triage Information Reviewed: Yes Vital Signs On Initial Exam: Initial Vitals Temp Pulse Resp BP Pulse Ox 97.9 F 71 16 117/69 98 01/29/19 09:39 01/29/19 09:39 01/29/19 09:39 01/29/19 09:39 01/29/19 09:39 Vital Signs Reviewed: Yes Appearance: Positive: Well-Appearing, Well-Nourished Skin: Positive: Warm, Pale Head/Face: Positive: Normal Head/Face Inspection Eyes: Positive: EOMI Neck: Positive: Supple, No Lymphadenopathy Respiratory/Lung Sounds: Positive: Decreased Breath Sounds Cardiovascular: Positive: RRR, Leg Edema Left, Leg Edema Right Musculoskeletal: Positive: Normal, Strength/ROM Intact Neurological: Positive: Speech Normal Psychiatric: Positive: Affect/Mood Appropriate AVPU Assessment: Alert Diagnostics - Vital Signs Vital Signs Temp Pulse Resp BP Pulse Ox 01/29/19 11:17 80 19 125/83 91 01/29/19 11:00 70 14 96 01/29/19 10:50 70 13 151/82 95 01/29/19 10:46 70 21 151/82 96 01/29/19 10:43 70 12 200/74 97 01/29/19 10:41 70 13 195/79 97 01/29/19 10:01 70 16 95 01/29/19 09:54 16 95 01/29/19 09:42 69 117/69 98 01/29/19 09:40 69 90 01/29/19 09:39 97.9 F 71 16 117/69 98 - Laboratory Lab Results: Lab Results 01/29/19 01/29/19 01/29/19 Range/Units 09:58 09:58 09:58 WBC 14.3 H (3.5-10.8) 10^3/ul RBC 3.02 L (4.00-5.40) 10^6/ul Hgb 8.9 L (12.0-16.0) g/dl Hct 29 L (35-47) % MCV 95 (80-97) fL MCH 29 (27-31) pg MCHC 31 (31-36) g/dl RDW 17 H (10.5-15) % Plt Count 233 (150-450) 10^3/ul MPV 9.3 (7.4-10.4) fL Neut % (Auto) 75.9 % Lymph % (Auto) 15.1 % [place] % (Auto) 7.4 % Eos % (Auto) 1.0 % Baso % (Auto) 0.6 % Absolute Neuts (auto) 10.8 H (1.5-7.7) 10^3/ul Absolute Lymphs (auto) 2.2 (1.0-4.8) 10^3/ul Absolute Monos (auto) 1.1 H (0-0.8) 10^3/ul Absolute Eos (auto) 0.1 (0-0.6) 10^3/ul Absolute Basos (auto) 0.1 (0-0.2) 10^3/ul Absolute Nucleated RBC 0 10^3/ul Nucleated RBC % 0 ESR Pending INR (Anticoag Therapy) 0.97 (0.77-1.02) Sodium 142 (135-145) mmol/L Potassium 3.9 (3.5-5.0) mmol/L Chloride 108 (101-111) mmol/L Carbon Dioxide 28 (22-32) mmol/L Anion Gap 6 (2-11) mmol/L BUN 24 (6-24) mg/dL Creatinine 1.58 H (0.51-0.95) mg/dL Est GFR ( Amer) 37.9 (>60) Est GFR (Non-Af Amer) 31.3 (>60) BUN/Creatinine Ratio 15.2 (8-20) Glucose 82 (70-100) mg/dL Lactic Acid (0.5-2.0) mmol/L Calcium 8.5 L (8.6-10.3) mg/dL Magnesium 1.9 (1.9-2.7) mg/dL Total Bilirubin 1.40 H (0.2-1.0) mg/dL AST 22 (13-39) U/L ALT 10 (7-52) U/L Alkaline Phosphatase 47 (34-104) U/L CK-MB (CK-2) 3.6 (0.6-6.3) ng/mL Troponin I 0.05 H* (<0.04) ng/mL C-Reactive Protein 10.18 H (<8.01) mg/L B-Natriuretic Peptide (<=100) pg/mL Total Protein 5.7 L (6.4-8.9) g/dL Albumin 3.3 (3.2-5.2) g/dL Globulin 2.4 (2-4) g/dL Albumin/Globulin Ratio 1.4 (1-3) TSH 2.75 (0.34-5.60) mcIU/mL 01/29/19 01/29/19 Range/Units 09:58 09:58 WBC (3.5-10.8) 10^3/ul RBC (4.00-5.40) 10^6/ul Hgb (12.0-16.0) g/dl Hct (35-47) % MCV (80-97) fL MCH (27-31) pg MCHC (31-36) g/dl RDW (10.5-15) % Plt Count (150-450) 10^3/ul MPV (7.4-10.4) fL Neut % (Auto) % Lymph % (Auto) % [place] % (Auto) % Eos % (Auto) % Baso % (Auto) % Absolute Neuts (auto) (1.5-7.7) 10^3/ul Absolute Lymphs (auto) (1.0-4.8) 10^3/ul Absolute Monos (auto) (0-0.8) 10^3/ul Absolute Eos (auto) (0-0.6) 10^3/ul Absolute Basos (auto) (0-0.2) 10^3/ul Absolute Nucleated RBC 10^3/ul Nucleated RBC % ESR INR (Anticoag Therapy) (0.77-1.02) Sodium (135-145) mmol/L Potassium (3.5-5.0) mmol/L Chloride (101-111) mmol/L Carbon Dioxide (22-32) mmol/L Anion Gap (2-11) mmol/L BUN (6-24) mg/dL Creatinine (0.51-0.95) mg/dL Est GFR ( Amer) (>60) Est GFR (Non-Af Amer) (>60) BUN/Creatinine Ratio (8-20) Glucose (70-100) mg/dL Lactic Acid 1.1 (0.5-2.0) mmol/L Calcium (8.6-10.3) mg/dL Magnesium (1.9-2.7) mg/dL Total Bilirubin (0.2-1.0) mg/dL AST (13-39) U/L ALT (7-52) U/L Alkaline Phosphatase (34-104) U/L CK-MB (CK-2) (0.6-6.3) ng/mL Troponin I (<0.04) ng/mL C-Reactive Protein (<8.01) mg/L B-Natriuretic Peptide 1050 H (<=100) pg/mL Total Protein (6.4-8.9) g/dL Albumin (3.2-5.2) g/dL Globulin (2-4) g/dL Albumin/Globulin Ratio (1-3) TSH (0.34-5.60) mcIU/mL Result Diagrams: 01/29/19 09:58 01/29/19 09:58 Lab Statement: Any lab studies that have been ordered have been reviewed, and results considered in the medical decision making process. Disposition - Course Course Of Treatment: Physical examination, patient appears fatigued. EKG obtained which shows left ventricular hypertrophy with a sinus rhythm. She has a history of anemia and carotid endarterectomy. There are no carotid bruits bilaterally. Lungs CTA although diminished, regular rate and rhythm. She has no lightheadedness or dizziness. No SOB. She states she feels at her baseline otherwise and denies any confusion, memory loss, headaches to suggest neuropathology. She is currently on Plavix, however is not taking a diuretic. Chest x-ray obtained which shows bilateral pleural effusions and interstitial edema as well as cardiomegaly. BNP is 1050, which is the highest it has been. She was given Lasix 40 mg IV. She continues to feel fatigued, she denies any chest pressure or pain. She does have a low H&H, however this is at baseline. I believe at this time she needs to be ruled out for further pathology of ACS or possible arrhythmia not captured at bedside monitor. Discussed case with hospitalist, Dr. Espino who agrees to admit for further evaluation and observation. - Diagnoses Provider Diagnoses: Fatigue, Palpitations Discharge - Sign-Out/Discharge Documenting (check all that apply): Patient Departure All imaging exams completed and their final reports reviewed: Yes Patient Received Moderate/Deep Sedation with Procedure: No - Discharge Plan Condition: Stable Disposition: ADMITTED TO [facility] - Billing Disposition and Condition Condition: STABLE Disposition: Admitted to [facility]
[2019-01-29 12:45] LABS: Urine Appearance Cloudy; Urine Bacteria 1+ (Absent); Urine Bilirubin Negative (Negative); Urine Blood 2+ (Negative); Urine Color Straw; Urine Glucose Negative (Negative); Urine Ketones Negative (Negative); Urine Nitrite Negative (Negative); Urine Protein Negative (Negative); Urine Red Blood Cell 1+(3-5/hpf) (Absent); Urine Specific Gravity 1.009 (1.010-1.030); Urine Squamous Epithelial Cell Present (Absent); Urine Urobilinogen Negative (Negative); Urine White Blood Cell 3+(>20/hpf) (Absent)
[2019-01-29] MEDS ORDERED: Acetaminophen TAB* 325 MG PO PRN (12:54)
[2019-01-29] MEDS ORDERED: Nitroglycerin TAB 0.4 MG* 0.4 MG TAB SL PRN (12:57)
[2019-01-29] MEDS ORDERED: traMADol TAB* 50 MG PO PRN (12:57)
[2019-01-29] MEDS ORDERED: clonazePAM TAB(*) 1 MG PO PRN (12:57)
[2019-01-29] MEDS ORDERED: Melatonin 3 MG TAB PO PRN (12:57)
[2019-01-29] MEDS ORDERED: predniSONE TAB* 1 MG PO SCH (13:00)
[2019-01-29] MEDS ORDERED: Heparin VIAL(*) 5000 UNITS/ML VIAL (FIVE THOUSAND) SUBCUT SCH (14:00)
[2019-01-29 14:27] LABS: Erythrocyte Sed Rate 13 mm/Hr (0-30)
[2019-01-29 15:29] LABS: Troponin I 0.06 ng/mL (<0.04)
[2019-01-29] MEDS: Escitalopram * 10 MG TAB PO SCH ×2 (15:36→15:42)
[2019-01-29] MEDS: predniSONE TAB* 1 MG PO SCH (15:40)
[2019-01-29] MEDS: Magnesium Oxide TAB* 400 MG PO SCH (15:41)
[2019-01-29] MEDS: predniSONE TAB* 5 MG PO SCH (15:41)
[2019-01-29] MEDS: Metoprolol Succinate XL TAB* 25 MG PO SCH (15:41)
[2019-01-29] MEDS: Amiodarone TAB* 200 MG PO SCH (15:42)
--- NOTE | 2019-01-29 16:47 | HP ---
CC: Dr. Grecia Anderson; Dr. Tina Pleitez; Dr. Rosales * HISTORY AND PHYSICAL: DATE OF ADMISSION: 01/29/19 PRIMARY CARE PROVIDER: Dr. Grecia Anderson. MARKETING PERFORMANCE ANALYST: Dr. Tina Pleitez. SENIOR BILLING CONSULTANT: Dr. Rosales. ATTENDING PHYSICIAN: Dr. Christopher Espino * (dictated by Bianca Mary NP). CHIEF COMPLAINT: Heart palpitations. HISTORY OF PRESENT ILLNESS: Ms. Gutierrez is an unfortunate 83-year-old female with a complex past medical history including myocardial infarction, ventricular tachycardia, cardiac arrest, PVD, hypertension, polymyalgia rheumatica, CKD, carotid artery stenosis, renal artery stenosis, orthostatic hypotension, and congestive heart failure, who presents to the emergency room today with complaints of heart palpitations. The patient was hospitalized at this facility from 12/18/18 to 12/24/18. On discharge, she was diagnosed with hypertensive encephalopathy and a likely right MCA or thalamic ischemic infarction. The patient spent 3 weeks at [facility] for rehab after that hospitalization and has been home since. She and her report that she has been in her normal state of health and has been seeing her doctors regularly. She reports that she awoke this morning with her palpitations. She denies any pressure or pain with those palpitations. She did deny shortness of breath, though her states that she did complain to him that she was feeling short of breath. Almost immediately, the patient and her went to [facility]. The patient reports that her palpitations resolved spontaneously around the time she got to [facility]. Because of this incidence, she has not taken any of her morning medications. At this point, she reports feeling weak and tired, though denies any shortness of breath, chest pressure, headache, dizziness, or changes in vision. I will note that the patient's reports that she was taken off her lisinopril while at [facility] as her blood pressures were quite labile. Otherwise, she has been taking the medications that were prescribed at discharge. The patient's reports that she recently saw Dr. Dupont, who was satisfied with the blood flow on her carotid arteries. I did ask the patient if the palpitations this morning were similar to the ventricular tachycardia that she has had in the past. The patient and her were quite surprised to hear that she had a history of any sort of arrhythmia, so she was not able to make any correlation. They were also quite surprised to hear that she does have a history of congestive heart failure. In the emergency room, the patient was noted to have a mildly elevated white blood count consistent with her baseline and a normocytic normochromic anemia slightly worse than her baseline. She was noted to have an elevated BNP at 1050 and the previous BNP on record from June 2018 was 680. She was noted to have quite labile blood pressures. On arrival, she was 117/69. Shortly thereafter, she was up to 200/74 and during orthostatic vitals while standing, she was 74/59. She was given 1 dose of furosemide. The hospitalist service was asked to evaluate for admission because of the concern for congestive heart failure. PAST MEDICAL HISTORY: 1. Chronic systolic congestive heart failure, EF 35% to 40%. 2. Orthostatic hypotension. 3. Suspected right MCA or thalamic ischemic infarction in November 2018. 4. Ventricular tachycardia. 5. Cardiac arrest. 6. PVD. 7. Hypertension. 8. Hyperlipidemia. 9. Depression. 10. Anxiety. 11. Polymyalgia rheumatica. 12. GERD. 13. Chronic pain. 14. Chronic kidney disease stage 3. 15. Bilateral renal artery stenosis. 16. Bilateral carotid artery stenosis. PAST SURGICAL HISTORY: 1. Cardiac catheterization x2, most recently in 2015. 2. Bilateral carotid endarterectomies. 3. Fem-pop bypass. 4. Tubal ligation. 5. Hysterectomy with bilateral salpingo-oophorectomy. 6. Nasal surgeries due to epistaxis related to blood thinners. HOME MEDICATIONS: 1. Acetaminophen 650 mg p.o. q.8 hours p.r.n. 2. Amiodarone 50 mg p.o. daily. 3. Atorvastatin 40 mg p.o. daily. 4. Calcium 600 plus D 2 caps p.o. b.i.d. 5. Clonazepam 1 mg p.o. b.i.d. p.r.n. 6. Clopidogrel 75 mg p.o. at bedtime. 7. Vitamin B12 2000 mcg p.o. daily. 8. Escitalopram 10 mg p.o. daily. 9. Ferrous sulfate 325 mg p.o. b.i.d. 10. Gabapentin 300 mg p.o. at bedtime. 11. Lactobacillus 1 tab p.o. daily. 12. Magnesium oxide 400 mg p.o. daily. 13. Melatonin 3 mg p.o. at bedtime p.r.n. 14. Metoprolol succinate 12.5 mg p.o. daily. 15. Nitroglycerin 0.4 mg sublingual q.5 minutes p.r.n. 16. Prednisone 8 mg p.o. daily. 17. Tramadol 25 mg p.o. q.8 hours p.r.n. ALLERGIES: CEPHALEXIN, IBUPROFEN, PEANUTS, MSG, METALS. FAMILY HISTORY: The patient's mother of natural causes. Her father in a motor vehicle accident. SOCIAL HISTORY: The patient has a distant history of smoking. She denies any alcohol or recreational drug use. She lives at home with her , Dawit, who will be her surrogate decision maker in the event she is unable to make her own decisions. REVIEW OF SYSTEMS: An 11-point review of systems was performed and all the pertinent positive and negative findings are in the HPI. All other systems are negative. PHYSICAL EXAMINATION GENERAL: Ms. Gutierrez is a well-developed, well-nourished, elderly white female, lying in bed, in no acute distress. She appears her stated age. VITAL SIGNS: Temp 97.9, heart rate 72, respiratory rate 17, oxygen saturation 98% on 2 L nasal cannula, blood pressure 108/75. HEENT: Head is atraumatic, normocephalic. Visual byrd are grossly intact. Left pupil is 3 mm and right pupil is 1 mm, which is the patient's baseline according to prior records. Extraocular movements intact. Oral mucous membranes moist and without lesions. NECK: Full range of motion. Thyroid not palpable. Trachea midline. No lymphadenopathy. RESPIRATORY: Symmetrical chest expansion. No chest wall deformities. Fine crackles to bilateral bases, otherwise clear throughout. No rhonchi, wheezes, or rubs. CARDIOVASCULAR: Regular rate and rhythm. Grade 3/6 systolic murmur. S1, S2 present. No rubs or gallops. Bilateral carotid bruits present. ABDOMEN: Soft, nontender to palpation. Bowel sounds normoactive throughout. EXTREMITIES: Skin warm and smooth bilaterally. No edema, no clubbing or cyanosis. Pedal pulses 2+ bilaterally. MUSCULOSKELETAL: Full range of motion. No pain or deformities. NEUROLOGIC: Awake, alert, and oriented x4, though disengaged in conversation. Cranial nerves II through XII grossly intact. Moves all extremities. SKIN: Grossly intact without lesions. DIAGNOSTIC STUDIES AND LABORATORY DATA: WBC 14.3, RBC 3.02, hemoglobin 8.9, hematocrit 29, platelets 233. INR 0.97. Sodium 142, potassium 3.9, chloride 108, carbon dioxide 28, BUN 24, creatinine 1.58, glucose 82, lactic acid 1.1. Troponin 0.05. BNP 1050. Urinalysis remarkable for 3+ leukocyte esterase, 3+ wbc, 1+ rbc, and 1+ bacteria. Chest x-ray reads as cardiomegaly with bilateral pleural effusions and interstitial edema. EKG shows normal sinus rhythm with a rate of 71, prolonged QTc of 510. ST elevation present in anterior leads, though this is consistent with previous EKGs. ASSESSMENT AND PLAN: Ms. Gutierrez is an 83-year-old female with a complex past medical history including congestive heart failure, myocardial infarction, ventricular tachycardia, cardiac arrest, peripheral vascular disease, hypertension, hyperlipidemia, polymyalgia rheumatica, chronic pain, chronic kidney disease, renal artery stenosis and carotid artery stenosis and suspected CVA, who presents to the emergency room today with complaints of palpitations and was found to be in acute on chronic heart failure. The patient will be admitted, observation for: 1. Acute on chronic systolic congestive heart failure. The patient has an elevated BNP much higher than any previous results, as well as a chest x-ray indicative of congestive heart failure. Fine crackles were heard in bilateral bases. She did have a recent echocardiogram on 12/18/18, which showed an EF of 35% to 40% as well as multiple valvular abnormalities including mild-to- moderate aortic stenosis, [id number] mitral regurgitation, and moderate mitral stenosis. I do not think that an echo needs to be repeated at this point. She did receive 1 dose of IV Lasix in the emergency room and I will order 40 mg of IV Lasix daily starting tomorrow. We will need to be gentle with diuresis due to the patient's labile blood pressures. It may be necessary to get Cardiology involved if her blood pressures remain a problem for diuresis. I did have a long talk with the patient and her regarding her diagnosis of congestive heart failure as they were not aware of any previous diagnosis. 2. Palpitations. The patient's palpitations lasted less than 1 hour and resolved spontaneously. It is not clear what caused the palpitation, though because of the history of ventricular tachycardia, I think it is certainly possible that she did have some ventricular tachycardia this morning. She is on amiodarone, which she and her reports that she takes as prescribed. She did miss her morning dose today, though I will order a dose now and then have her resume her usual schedule. 3. Labile blood pressures. The patient's reports that she had issues with labile blood pressures while at [facility] and for this reason, her lisinopril was stopped. In the emergency room, she did have a systolic pressure as high as 200, though as low as 74 when standing. She does have a history of subclavian steal syndrome, so this could potentially be a contributing factor, but she also does have a known history of orthostatic hypotension. At this point, we will continue to monitor her blood pressures and intervene if necessary. 4. Elevated troponin. The patient's troponin is elevated at 0.05, though I will note that this is the lowest it has been since June 2018, so I do not think this represents any acute process at this point. 5. Anemia. The patient has a longstanding history with anemia, though does appear to be more anemic at this point than she was in December. On 12/18/18, she was noted to have a hemoglobin of 14.7 and today it is 8.9. The patient does have a history of severe epistaxis related to blood thinners and the patient's reports that she does continue to have chronic epistaxis, though we will check a stool occult to ensure that there is not a slow GI bleed occurring. The anemia is normocytic normochromic, though I will hold off on ordering iron studies at this point and she does take high dose vitamin B12 daily, so I do not think a vitamin B12 level needs to be repeated as it was elevated on 01/22/19. 6. Coronary artery disease. I am not concerned for any acute coronary syndrome at this point. I will continue her nitro as needed. 7. Hypertension. Again, her pressures are labile at this point, but I will continue her metoprolol. As noted above, she was taken off her lisinopril, though this should be reevaluated prior to discharge because it will benefit her heart failure. 8. Depression and anxiety. Continue escitalopram and clonazepam. 9. Polymyalgia rheumatica. Continue prednisone. 10. Hyperlipidemia. Continue atorvastatin. 11. Chronic pain. Continue tramadol and gabapentin. 12. Bilateral carotid stenosis. According to the most recent ultrasound, the patient has 70% to 99% occlusion on the right and 50% to 69% occlusion on the left by NASCET criteria. She has been following with Dr. Dupont, who has no concerns at this point. 13. History of suspected CVA. She has no focal neurological deficits from her baseline. I will continue her clopidogrel. 14. Chronic kidney disease stage 3. The patient's creatinine is at her baseline around 1.5. 15. FEN. The patient does not require any fluid resuscitation or electrolyte replacement at this point. I have ordered a heart healthy diet with no caffeine due to the recent palpitations she experienced. 16. Code status. The patient will be a full code. 17. DVT prophylaxis. According to the DVT risk assessment, the patient scores a 4, putting her at high risk. I will hold off on heparin at this point until it is determined that she is not actively bleeding, so I ordered SCDs. TIME SPENT: Approximately 75 minutes were spent on this admission, greater than half of that time spent [id number] with the patient and her obtaining my history, performing my physical exam, and reviewing my plan of care. This case has been reviewed with my attending, Dr. Espino, who is in agreement with the plan of care. BIANCA MARY NP [id number]/[facility] #: [id number] COREY
[2019-01-29] MEDS: Ferrous Sulfate TAB* 325 MG PO SCH ×2 (20:06→20:07)
[2019-01-29] MEDS ORDERED: Clopidogrel TAB* 75 MG PO SCH (21:00)
[2019-01-29] MEDS ORDERED: Gabapentin CAP(*) 300 MG PO SCH (21:00)
[2019-01-30 06:03] LABS: ABS Basophils 0 10^3/ul (0-0.2); ABS Eosinophils 0.1 10^3/ul (0-0.6); ABS Lymphocytes 1.4 10^3/ul (1.0-4.8); ABS Monocytes 0.9 10^3/ul (0-0.8); ABS Neutrophils 10.6 10^3/ul (1.5-7.7); ABS Nucleated RBC 0 10^3/ul; Eosinophil % 0.7 %; Hematocrit 28 % (35-47); Hemoglobin 8.7 g/dl (12.0-16.0); Lymphocyte % 10.7 %; Mean Corpuscular HGB Conc 31 g/dl (31-36); Mean Corpuscular Hemoglobin 29 pg (27-31); Mean Corpuscular Volume 92 fL (80-97); Mean Platelet Volume 9.5 fL (7.4-10.4); Nucleated Red Blood Cells % 0; Platelet Count 223 10^3/ul (150-450); Red Blood Count 3.03 10^6/ul (4.00-5.40); Red Cell Distribution Width 17 % (10.5-15); White Blood Count 12.9 10^3/ul (3.5-10.8)
[2019-01-30 06:26] LABS: BUN/Creatinine Ratio 19.1 (8-20); Calcium 8.6 mg/dL (8.6-10.3); EGFR African American 39.6 (>60); EGFR Non-African American 32.7 (>60); Potassium 3.4 mmol/L (3.5-5.0)
[2019-01-30 07:45] VITALS: BP 124/67
[2019-01-30] MEDS: Metoprolol Succinate XL TAB* 25 MG PO SCH (08:10)
[2019-01-30] MEDS: Escitalopram * 10 MG TAB PO SCH (08:10)
[2019-01-30] MEDS: Amiodarone TAB* 200 MG PO SCH (08:11)
[2019-01-30] MEDS: predniSONE TAB* 1 MG PO SCH (08:13)
[2019-01-30] MEDS: predniSONE TAB* 5 MG PO SCH (08:13)
[2019-01-30] MEDS: Magnesium Oxide TAB* 400 MG PO SCH (08:13)
[2019-01-30] MEDS: Ferrous Sulfate TAB* 325 MG PO SCH ×2 (08:14→08:32)
[2019-01-30] MEDS ORDERED: Cyanocobalamin TAB* 500 MCG PO SCH (09:00)
[2019-01-30] MEDS ORDERED: Atorvastatin* 40 MG TAB PO SCH (09:00)
[2019-01-30] MEDS ORDERED: Furosemide IV* 10 MG/ML VIAL (40 MG) IV SCH (09:00)
--- NOTE | 2019-01-30 20:14 | DS ---
CC: Dr. Anderson; Dr. Pleitez.* DISCHARGE SUMMARY: DATE OF ADMISSION: DATE OF DISCHARGE: 01/30/19 HISTORY OF PRESENT ILLNESS: This 83-year-old woman went to the emergency room because of palpitations and shortness of breath. The palpitations lasted about an hour. She was not dizzy or lightheaded. She did not fall down or pass out. She does not recall having palpitations in the past. She did not have chest pain. Chest x-ray on admission showed interstitial edema and some old bilateral pleural effusions. Her BNP was over 1000 significantly higher than it had been in the past. There were bibasilar rales. The patient received intravenous furosemide in the emergency room. She received another dose of 40 mg of intra-venous furosemide the following morning , which should be the day of discharge. Of note, she had an echocardiogram on 12/18/18 and has a known cardiomyopathy. She is also taking the amiodarone, I believe, because of a history of ventricular tachycardia. She is followed by Dr. Pleitez for this. This morning on discharge, she felt much better. Really at baseline. She had no significant arrhythmias in the hospital. No further palpitations. She was not really not short of breath. Lab work did not really change significantly. White went down from 14.3 to 12.5. Potassium went down from 3.9 to 3.4. Creatinine went from 1.58 to 1.52, BUN from 24 to 29. The patient was instructed to weigh herself everyday, write down the weights and to call her provider if her weight is deviated by more than 3 pounds from the initial weight. FINAL DIAGNOSES: 1. [id number] systolic congestive heart failure. 2. History of ventricular tachycardia and palpitations. 3. Coronary artery disease, nonobstructive. 4. Nonischemic cardiomyopathy. 5. Hypertension. 6. Polymyalgia rheumatica. 7. Hyperlipidemia. 8. Carotid stenosis. 9. Chronic kidney disease. 10. Anemia. DISCHARGE MEDICATIONS: 1. Furosemide 20 mg daily. 2. Potassium chloride 20 mEq daily. 3. Clonazepam 1 mg b.i.d. p.r.n. 4. Nitroglycerin 0.4 mg sublingual every 5 minutes p.r.n. 5. Acetaminophen 650 mg every 8 hours p.r.n. 6. Tramadol 25 mg every 8 hours p.r.n. 7. Gabapentin 300 mg h.s. 8. Cyanocobalamin 2000 mcg orally daily. 9. Atorvastatin 40 mg daily. 10. Lactobacillus one tablet daily. 11. Magnesium oxide 400 mg daily. 12. Calcium carbonate with vitamin D two capsules b.i.d. 13. Escitalopram 10 mg daily. 14. Prednisone 8 mg daily. 15. Metoprolol succinate 12.5 mg daily. 16. Ferrous sulfate 325 mg b.i.d. 17. Clopidogrel 75 mg h.s. 18. Melatonin 3 mg h.s. p.r.n. 19. Amiodarone 50 mg daily. The patient will have a BMP in two days on 02/01/19. CONDITION ON DISCHARGE: Improved. DISPOSITION ON DISCHARGE: Discharged home. [id number]/[facility] #: [id number] MTDD
[2019-01-31] MEDS ORDERED: Furosemide TAB* 20 MG PO SCH (09:00)
== END 2019-01-30 14:00 | disposition home or self-care (01) ==
LOC: ED 09:35 → MEDTELE 11:42
PROVIDERS: ADMIT Internal Medicine; ATTEND Internal Medicine
DX: I50.23 Acute on chronic systolic (congestive) heart failure (principal); R00.2 Palpitations; R06.02 Shortness of breath; R42 Dizziness and giddiness; I13.0 Hypertensive heart and chronic kidney disease with heart failure and stage 1 through stage 4 chronic kidney disease, or unspecified chronic kidney disease; N18.3 Chronic kidney disease, stage 3 (moderate); I47.2 Ventricular tachycardia; I25.10 Atherosclerotic heart disease of native coronary artery without angina pectoris; I25.5 Ischemic cardiomyopathy; M35.3 Polymyalgia rheumatica; E78.5 Hyperlipidemia, unspecified; I65.29 Occlusion and stenosis of unspecified carotid artery; D64.9 Anemia, unspecified; I95.1 Orthostatic hypotension; I25.2 Old myocardial infarction; I70.1 Atherosclerosis of renal artery; I73.9 Peripheral vascular disease, unspecified; Z95.5 Presence of coronary angioplasty implant and graft; Z98.51 Tubal ligation status; Z79.01 Long term (current) use of anticoagulants; R07.9 Chest pain, unspecified; R07.89 Other chest pain; E78.00 Pure hypercholesterolemia, unspecified; I50.9 Heart failure, unspecified; E27.8 Other specified disorders of adrenal gland; Z87.891 Personal history of nicotine dependence
CPT/HCPCS: 36415; 71046; 80048; 80053; 81003; 81015; 82553; 83605; 83735; 83880; 84443; 84484; 85025; 85610; 85652; 86140; 87086; 93005; 96361; 96374; 96375; 99284; A9270-GY; G0378; J1940; J7512

== ENCOUNTER 2019-02-06 09:54 | Observation (INO) | payer MEDICARE, OTHER ==
--- NOTE | 2019-02-06 10:20 | ED ---
Complex/Multi-Sys Presentation - HPI Summary HPI Summary: This patient is an 83 year old F brought in by ambulance to ED with a chief complaint of weakness and confusion since earlier today. Patient was with her who says that the patient has non dx dementia. He describes her as confused and forgetful, but today, she was more confused than normal and weaker than usual. The patient says that her teeth are loose and she says I feel strange. Patient knows that she is in the hospital but is not too sure why. The patient rates the pain 5/10 in severity. Symptoms aggravated by nothing. Symptoms alleviated by nothing. Patient reports back pain (fell into the car) . Patient denies abdominal pain, N/V, SOB, LE edema, and CP. Patient is not on O2 at home. - History Of Current Complaint Time Seen by Provider: 02/06/19 10:04 Hx Obtained From: Patient, Family/Benefits Specialist - arrived in ED at around 1145, EMS Onset/Duration: Sudden Onset, Lasting Hours, Still Present Timing: Constant Severity Currently: Moderate - 5/10 Location: Pain At: - back Aggravating Factor(s): nothing Alleviating Factor(s): nothing Associated Signs And Symptoms: Positive: Confusion, Weakness, Back Pain. Negative: SOB, Chest Pain, Edema, Nausea, Vomiting, Abdominal Pain - Allergies/Home Medications Allergies/Adverse Reactions: Allergies Allergy/AdvReac Type Severity Reaction Status Date / Time monosodium glutamate AdvReac Mild headache, Verified 01/29/19 09:02 jitters cephalexin AdvReac GI Upset Verified 01/29/19 09:02 ibuprofen AdvReac Nausea Verified 01/29/19 09:02 CHESTNUTS Allergy Severe LIPS SWELL Uncoded 01/29/19 09:02 AND ARE VERY PAINFUL METALS Allergy Unknown Rash Uncoded 01/29/19 09:02 SEASONAL Allergy STUFFY Uncoded 01/29/19 09:02 HAYFEVER/ENVIRONMENTAL NOSE, WATERY EYES Home Medications: Home Medications Quan/D3/Mag11/Zinc/Assistant Distribution Manager/Shiva/Bor [Caltrate 600+D Plus] 1 tab PO BID 02/06/19 [ History Confirmed 02/06/19] Furosemide TAB* [Lasix TAB*] 20 mg PO EVERY OTHER DAY 02/06/19 [History Confirmed 02/06/19] Melatonin 5 mg PO BEDTIME 02/06/19 [History Confirmed 02/06/19] Metoprolol Succinate XL TAB* [Toprol XL TAB*] 12.5 mg PO BEDTIME 02/06/19 [ History Confirmed 02/06/19] predniSONE TAB* [Deltasone 10 MG TAB*] 10 mg PO DAILY 02/06/19 [History Confirmed 02/06/19] PMH/Surg Hx/FS Hx/Imm Hx Endocrine/Hematology History: Reports: Hx Anticoagulant Therapy, Hx Anemia - RECIEVED IRON INFUSIONS IN PAST Denies: Hx Diabetes, Hx Thyroid Disease Cardiovascular History: Reports: Hx Angina - RARELY USES NITRO, Hx Cardiomegaly , Hx Congestive Heart Failure, Hx Coronary Artery Disease - ON MED, Hx Hypercholesterolemia, Hx Hypotension - current, Hx Hypertension, Hx Myocardial Infarction - 2014, Hx Peripheral Vascular Disease, 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 godwin left carotid artery 2013 right carot Denies: Hx Deep Vein Thrombosis, Hx Pacemaker/ICD Respiratory History: Reports: Hx Asthma - POSSIBLY IN THE PAST, Hx Pneumonia Denies: Hx Chronic Obstructive Pulmonary Disease (COPD), Hx Lung Cancer GI History: Reports: Other GI Disorders - CHRONIC CONSTIPATION-TAKES LAXATIVE DAILY peg tube 03/12/18 Denies: Hx Gall Bladder Disease, Hx Gastroesophageal Reflux Disease, Hx Gastrointestinal Bleed, Hx Ulcer, Hx Urosepsis History: Reports: Hx Chronic Renal Failure Denies: Hx Kidney Stones, Hx Renal Disease, Other Problems/Disorders Musculoskeletal History: Reports: Hx Arthritis - HANDS & FEET Denies: Hx Rheumatoid Arthritis, Hx Osteoporosis Sensory History: Reports: Hx Cataracts - BILAT, Hx Contacts or Glasses Denies: Hx Hearing Aid Opthamlomology History: Reports: Hx Cataracts - BILAT, Hx Contacts or Glasses Neurological History: Reports: Hx Headaches - TAKES TRAMADOL PRN, Hx Migraine - last episode 1 yr ago 2017, Hx Nerve Disease - see below, Other Neuro Impairments/Disorders - 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 type. Hx Chemotherapy: No Hx Radiation Therapy: No - Surgical History Surgery Procedure, Year, and Place: Hysterectomy, 1983, [facility] [place]. Choleycystectomy, 1993, [facility] [place]. nose surgery .DR CHIN. BILAT.Femoral bypass, 1996, [facility] [place]. Left carotid endardectomy 2013. Right first toe, first joint replacement, 2005, [facility] [place]. LIGATION OF ETHMOIDAL INTERNAL MAXILIARY ARTERIES 2007. MYLEOGRAM. LASER SURGERY FOR EPISTAXIS X 6 OVER PAST 10 YEARS. RIGHT CAROTID ENDARECTOMY 03/01/18 [facility]. PEG TUBE INSERTION 03/12/18 [facility]. NASAL EPISTAXIS [facility] [place] DR. CHIN Hx Anesthesia Reactions: No - Immunization History Date of Tetanus Vaccine: up to date Date of Influenza Vaccine: up to date Infectious Disease History: Denies: Hx Clostridium Difficile, Hx Hepatitis, Hx Human Immunodeficiency Virus (HIV), Hx of Known/Suspected MRSA, Hx Shingles, Hx Tuberculosis, Hx Known/ Suspected VRE, Hx Known/Suspected VRSA, History Other Infectious Disease - Family History Known Family History: Positive: Hypertension Negative: Cardiac Disease - Social History Alcohol Use: None Alcohol Amount: a glass of wine a few times a week Hx Substance Use: No Substance Use Type: Reports: None Hx Tobacco Use: Yes Smoking Status (MU): Former Smoker Type: Cigarettes Amount Used/How Often: 1 PPD Length of Time of Smoking/Using Tobacco: 47 YEARS Have You Smoked in the Last Year: No Review of Systems Positive: Other - "I feel strange" Positive: Other - teeth are loose Negative: Chest Pain Negative: Shortness Of Breath Negative: Abdominal Pain, Vomiting, Nausea Positive: Other - back pain (patient fell into the car). Negative: Edema Neurological: Other - confusion Positive: Weakness All Other Systems Reviewed And Are Negative: Yes Physical Exam - Summary Physical Exam Summary: Constitutional: Well-developed, Well-nourished, Alert. (-) Distressed Skin: Warm, Dry HENT: Normocephalic; Atraumatic Eyes: Conjunctiva normal, pupils are equal Neck: Musculoskeletal ROM normal neck. (-) JVD, (-) Stridor, (-) Tracheal deviation Cardio: Rhythm regular, rate normal, Heart sounds normal; Intact distal pulses; The pedal pulses are 2+ and symmetric. Radial pulses are 2+ and symmetric. (-) Murmur Pulmonary/Chest wall: Effort normal. (-) Respiratory distress, (-) Wheezes, (-) Rales, posterior R base has a few crackles Abd: Soft, (-) tenderness, (-) Distension, (-) Guarding, (-) Rebound Musculoskeletal: (-) Edema Lymph: (-) Cervical adenopathy Neuro: Alert, Oriented x3, no focal neurological deficit, finger to nose test is normal, no visual field deficit. Tremor in bilateral hands. Psych: Mood and affect Normal GCS: 14 Triage Information Reviewed: Yes Vital Signs On Initial Exam: Initial Vitals Temp Pulse Resp BP Pulse Ox 98.3 F 73 18 162/74 98 02/06/19 10:14 02/06/19 10:14 02/06/19 10:14 02/06/19 10:14 02/06/19 10:14 Vital Signs Reviewed: Yes Diagnostics - Laboratory Result Diagrams: 02/06/19 10:34 02/06/19 10:33 Lab Statement: Any lab studies that have been ordered have been reviewed, and results considered in the medical decision making process. - Radiology CXR Radiology Interpretation Completed By: Radiologist Summary of Radiographic Findings: NO EVIDENCE FOR ACUTE DISEASE. has reviewed this radiology report. - CT Brain CT CT Interpretation Completed By: Radiologist Summary of CT Findings: 1. NO EVIDENCE FOR ACUTE INTRACRANIAL ABNORMALITY. 2. ATROPHY AND MODERATE TO SEVERE CHRONIC SMALL VESSEL ISCHEMIC CHANGES. has reviewed this radiology reports. - EKG 1025 Cardiac Rate: NL - 73 BPM EKG Rhythm: Sinus Rhythm Summary of EKG Findings: Normal sinus rhythm at 73 bpm, normal NE, normal QRS, normal QTc, normal axis, ST elevations in V1-V3 and depressed in V5-V6, T-waves inverted in V6. LVH unchanged from 02/08/19. Re-Evaluation - Re-Evaluation First Eval Re-Evaluation Time: 11:51 Comment: Spoke with the about the patient's case. Second Eval Re-Evaluation Time: 12:45 Comment: The said that the patient still not back to her baseline but she claims that she is fine. reprots that prior to his arrival in the ED , the patient started pulling on her IV line and she started using profanities which is not like her at all. Discussed plan for admission with the patient and her . Complex Multi-Symp Course/Dx Assessment/Plan: This patient is an 83 year old F brought in by ambulance to ED with a chief complaint of weakness and confusion since earlier today. On the PE , the patient was alert and oriented x3, she had no focal neurological deficit, finger to nose test is normal, and she had no visual field deficit. She did have a tremor in her hands bilaterally. Normal sinus rhythm at 73 bpm, normal NE , normal QRS, normal QTc, normal axis, ST elevations in V1-V3 and depressed in V5-V6, T-waves inverted in V6. LVH unchanged from 02/08/19. CXR reveals NO EVIDENCE FOR ACUTE DISEASE. Brain CT reveals 1. NO EVIDENCE FOR ACUTE INTRACRANIAL ABNORMALITY. 2. ATROPHY AND MODERATE TO SEVERE CHRONIC SMALL VESSEL ISCHEMIC CHANGES. Patient has chronically elevated troponin and chronic renal insufficiency and chronic anemia and she is currently at her baseline. Consulted Dr. Weathers about the patient's case at 1249 and she accepted the patient for admission. This patient will be admitted with dx of deliria. Patient and understand and agree with this plan. - Diagnoses Differential Diagnoses/HQI/PQRI: Other - deliria Provider Diagnoses: Delirium - Physician Notifications Discussed Care Of Patient With: Ragini Weathers Time Discussed With Above Provider: 12:49 Instructed by Provider To: Admit As Inpatient Discharge - Sign-Out/Discharge Documenting (check all that apply): Patient Departure - admit Patient Received Moderate/Deep Sedation with Procedure: No - Discharge Plan Condition: Stable Disposition: ADMITTED TO [facility] Referrals: Grecia Anderson MD [Primary Care Provider] - - Billing Disposition and Condition Condition: STABLE Disposition: Admitted to [facility] - Attestation Statements Document Initiated by Scribe: Yes Documenting Scribe: Raheel Brito Provider For Whom Aftab is Documenting (Include Credential): Nayana Maldonado Scribe Attestation: IRaheel, scribed for Nayana Gonzalez on 02/06/19 at 1504. Scribe Documentation Reviewed: Yes Provider Attestation: The documentation as recorded by the Raheel hall accurately reflects the service I personally performed and the decisions made by Nayana huertas Status of Scribe Document: Viewed
[2019-02-06 10:49] LABS: ABS Basophils 0.1 10^3/ul (0-0.2); ABS Eosinophils 0.2 10^3/ul (0-0.6); ABS Lymphocytes 2.5 10^3/ul (1.0-4.8); ABS Monocytes 1.2 10^3/ul (0-0.8); ABS Neutrophils 11.2 10^3/ul (1.5-7.7); ABS Nucleated RBC 0 10^3/ul; Hematocrit 30 % (35-47); Hemoglobin 9.2 g/dl (12.0-16.0); Lymphocyte % 16.5 %; Mean Corpuscular HGB Conc 31 g/dl (31-36); Mean Corpuscular Hemoglobin 28 pg (27-31); Mean Corpuscular Volume 92 fL (80-97); Nucleated Red Blood Cells % 0; Platelet Count 251 10^3/ul (150-450); Red Blood Count 3.25 10^6/ul (4.00-5.40); Red Cell Distribution Width 18 % (10.5-15); White Blood Count 15.3 10^3/ul (3.5-10.8)
[2019-02-06 11:05] LABS: ALT 14 U/L (7-52); AST 26 U/L (13-39); Albumin 3.7 g/dL (3.2-5.2); Albumin/Globulin Ratio 1.4 (1-3); Alkaline Phosphatase 51 U/L (34-104); Anion Gap 8 mmol/L (2-11); BUN/Creatinine Ratio 16.7 (8-20); Blood Urea Nitrogen 30 mg/dL (6-24); CO2 Carbon Dioxide 29 mmol/L (22-32); Calcium 9.4 mg/dL (8.6-10.3); Chloride 103 mmol/L (101-111); EGFR African American 32.6 (>60); EGFR Non-African American 26.9 (>60); Globulin 2.6 g/dL (2-4); Glucose 82 mg/dL (70-100); Sodium 140 mmol/L (135-145); Total Protein 6.3 g/dL (6.4-8.9)
[2019-02-06 11:11] LABS: Troponin I 0.05 ng/mL (<0.04)
[2019-02-06 11:27] LABS: Acetaminophen < 15 mcg/mL; Alcohol < 10 mg/dL (<10); Salicylate < 2.50 mg/dL (<30)
[2019-02-06 11:30] LABS: TSH (Thyroid Stimulating Horm) 1.96 mcIU/mL (0.34-5.60)
[2019-02-06 12:15] LABS: Urine Appearance Clear; Urine Bilirubin Negative (Negative); Urine Blood Negative (Negative); Urine Color Yellow; Urine Glucose Negative (Negative); Urine Ketones Negative (Negative); Urine Nitrite Negative (Negative); Urine Protein Negative (Negative); Urine Specific Gravity 1.014 (1.010-1.030); Urine Urobilinogen Negative (Negative)
[2019-02-06] MEDS ORDERED: Acetaminophen TAB* 325 MG PO PRN (15:05)
[2019-02-06] MEDS ORDERED: Magnesium Hydroxide LIQ* 30 ML UDC PO PRN (15:05)
[2019-02-06] MEDS ORDERED: traMADol TAB* 50 MG PO PRN (15:07)
[2019-02-06] MEDS ORDERED: clonazePAM TAB(*) 1 MG PO PRN (15:07)
[2019-02-06] MEDS ORDERED: Nitroglycerin TAB 0.4 MG* 0.4 MG TAB SL PRN (15:07)
[2019-02-06] MEDS ORDERED: Furosemide TAB* 20 MG PO SCH (17:00)
[2019-02-06] MEDS: predniSONE TAB* 10 MG PO SCH (17:02)
--- NOTE | 2019-02-06 17:41 | HP ---
CC: Dr. Anderson; Dr. Pleitez; Dr. Rosales; Dr. Oniel Jorge * ADMISSION HISTORY AND PHYSICAL: DATE OF ADMISSION: 02/06/19 PRIMARY CARE PROVIDER: Dr. Anderson. ATTENDING FOR THIS ADMISSION: Dr. Ragini See.* (DICTATED BY GRIFFIN PEMBERTON NP) ASSISTANT PROFESSOR OF THEATER: Dr. Pleitez. CSO: Dr. Rosales. NEUROLOGIST: Dr. Oniel Jorge. CHIEF COMPLAINT: Weakness and confusion. HISTORY OF PRESENT ILLNESS: This is an 83-year-old female patient with a very complicated medical history that presented with her today, described as confused and forgetful. The patient again has a very significant history for cardiac disease and stroke in the past. was concerned, so he called her primary care provider, who recommend that the patient be brought to the emergency department for evaluation. In the ED, the patient remained confused. She did have a CAT scan of the brain, which did not show any acute findings. Upon further evaluation on her previous admissions, the patient has had similar admissions since November with increasing delirium and dementia. At this point, her workup has been essentially negative. She did have significant amount of diagnostic testing at her last 2 admissions. However, the patient's says she is still not at her baseline and he is concerned about taking her home. For these reasons, we were asked to evaluate the patient for admission today. PAST MEDICAL HISTORY: Significant for chronic systolic heart failure with an EF of 35% to 40%, hypertensive urgency, suspected previous right MCA or thalamic ischemic infarct, history of ventricular tachycardia with cardiac arrest, peripheral vascular disease, hypertension, hyperlipidemia, depression with anxiety, polymyalgia rheumatica and chronic pain, GERD, chronic kidney disease stage 3, and bilateral carotid artery stenosis and bilateral renal artery stenosis. PAST SURGICAL HISTORY: Significant for: 1. Cardiac cath x2 with PCI. 2. Bilateral carotid endarterectomies. 3. Femoropopliteal bypass surgery. 4. Tubal ligation. 5. Hysterectomy. 6. Bilateral salpingo-oophorectomy. 7. Nasal procedures secondary to chronic epistaxis. MEDICATIONS: At home are: 1. Clonazepam 1 mg p.o. at bedtime as needed. 2. Metoprolol succinate 12.5 mg p.o. at bedtime. 3. Gabapentin 600 mg at bedtime. 4. Caltrate 1 tab p.o. b.i.d. 5. Lipitor 40 mg at bedtime. 6. Potassium 20 mEq daily. 7. B12 1000 mcg daily. 8. Plavix 75 mg at bedtime. 9. Mag-Ox 400 mg p.o. daily. 10. Acidophilus 1 tab p.o. daily. 11. Amiodarone 50 mg p.o. daily. 12. Lasix 20 mg every other day. 13. Lexapro 10 mg in the morning. 14. Prednisone 10 mg daily. 15. Nitroglycerin 0.4 mg sublingual q.4 hours as needed. 16. Melatonin 5 mg at bedtime. 17. Ferrous sulfate 325 mg p.o. b.i.d. 18. Tylenol 650 as needed. 19. Tramadol 25 mg 3 times a day as needed. ALLERGIES: The patient's allergies include MSG, IBUPROFEN, PEANUTS, KEFLEX, and SEASONAL ALLERGIES. FAMILY HISTORY: Noncontributory. SOCIAL HISTORY: The patient was a smoker. She does not drink any alcohol. There is no illicit drug use. Her healthcare proxy and decision maker is her , who is at the bedside. REVIEW OF SYSTEMS: The patient is confused; however, she is denying any fever, fatigue, or chills. No chest pain. No palpitations. No acute shortness of breath. No nausea. No vomiting. No abdominal pains. No urinary complaints. She has some chronic arthralgias and myalgias secondary to her PMR, which is at her baseline. Also has some associated headache with that, again also at her baseline, and no further constitutional complaints. PHYSICAL EXAMINATION GENERAL: Reveals a well-appearing elderly woman in no acute distress. VITAL SIGNS: Blood pressure 150/64, heart rate 77, respiratory rate 13, O2 saturation 99% on room air, temperature 98.3. HEENT: The patient is atraumatic, normocephalic. PERRLA. Nonicteric sclerae. Oral mucosa is moist. Tongue is midline. NECK: Supple, nontender. No JVD noted. No carotid bruit auscultated. LUNGS: Clear bilaterally to auscultation with no wheezing, rhonchi, or rales. CARDIOVASCULAR: S1, S2 present. No murmurs, gallops, or rubs noted. Rate and rhythm are currently regular. ABDOMEN: Soft, nontender, and nondistended. Positive bowel sounds in all 4 quadrants. No organomegaly noted. GENITOURINARY: Deferred. MUSCULOSKELETAL: There is no clubbing, no cyanosis, no edema. She has +2 distal pulses palpable. Gross motor and sensation are intact. She has equal felling bucking supervisor bilaterally. No pronator drift. She does have periods of confusion. She is alert to person and to place; however, it seems her mentation is waxing and waning. PSYCHIATRIC: She is currently cooperative and appropriate, albeit confused. DIAGNOSTIC STUDIES/LAB DATA: Laboratories: WBCs 15.3, RBCs 3.25, hemoglobin 9.2, hematocrit 30, platelets 251. Sodium 140, potassium 4.0, chloride 103, CO2 of 29, BUN 30, creatinine 1.80, GFR 26.9, glucose 82, lactic acid 0.7, calcium 9.4, magnesium 2.0. Total bilirubin 1.40, AST 26, ALT 14, alk phos 51. Troponin is 0.05. Total protein 6.3, albumin 3.7, globulin 2.6, TSH is 1.96. Urinalysis is negative for any acute infective process. Toxicology, salicylates, acetaminophen, and serum alcohol are all negative. Imaging: CT of the brain dated 02/06/19 shows no evidence for acute intracranial abnormality. Second, there is atrophy and [id number] chronic small-vessel ischemic changes. This does not represent any acute changes from her last brain CT. Chest x-ray also dated 02/06/19 shows no evidence for acute disease. EKG today shows regular sinus rhythm. She does have some nonspecific ST and T segment anterior changes, which are consistent with previous EKGs. IMPRESSION: This is a very unfortunate 83-year-old female with a very complicated medical history, who presents to the emergency department with increasing confusion. PLAN: The patient will be admitted to observation status. DIAGNOSES: 1. Delirium on top of chronic dementia. Overall, the patient does not have any new or acute findings. The patient did have significant workups in the past. She had an EEG last month and multiple CAT scans in the past. Again, there are no acute findings. Her behavior right now appears to be consistent with an acute on chronic dementia with some waxing and waning behaviors. The patient does see Dr. Jorge for Neurology. We consulted Dr. Jorge at this point to get some additional recommendations regarding current behavior and confusion. The patient will likely need supportive care. I had a very long conversation with the patient's regarding advancing dementia as a progressive disease. We are consulting Social Work to talk about some advanced planning. At some point, the patient may need more [id number]-lpvir care that the patient's may not be able to do at home. So, we look to any recommendations from Social Work that may have positive impact on this family. We will get PT and OT evaluations at this point. The patient was recently in short-term rehab; however, we should check to make sure her baseline functioning has not changed. 2. History of chronic systolic heart failure with low ejection fraction. The patient does have an abnormal EKG, but this is normal for her. She is not complaining of any anginal equivalent. She does not appear to be volume overloaded. We will continue her home dose of Lasix, her beta-mercedes, and amiodarone as per her home dosing. 3. For history of hypertension, did mention that at the last admission, the patient seemed to have some altered mental status when her blood pressure was greatly elevated. Her blood pressure is essentially normal today. It is well controlled. I do not think this has bearing on her current symptoms. We will continue her antihypertensives per her home regimen. 4. Chronically elevated troponins. The patient does have advanced kidney disease. This has been a known issue. Again, she has no anginal equivalents at this time. We do not need to continue to trend her troponins. 5. Polymyalgia rheumatica. The patient is on chronic prednisone 10 mg per day. As such, she also has a chronic leukocytosis. The patient is afebrile and does not appear toxic and again, urinalysis was negative and so was her chest. So, this does not represent any acute infective process, but likely a reactive inflammation from her steroid use and her PMR. 6. History of coronary artery disease. Again, no anginal equivalence at this time. 7. History of chronic pain secondary to polymyalgia rheumatica. We will continue the patient on her gabapentin and tramadol as needed. 8. Chronic kidney disease stage 3. Creatinine is 1.80 today, which is at her baseline. 9. History of bilateral carotid stenosis. The patient had bilateral carotid endarterectomies. She is on statin and Plavix therapy. Again, we will look to Dr. Jorge for any additional recommendations. 10. The patient will be placed on a heart healthy diet. 11. Code status is full. 12. DVT prophylaxis will be with heparin. 13. Disposition: Admit to observation. TIME SPENT: Approximately 65 minutes interfacing with the patient and developing plan of care. This plan of care has been discussed with Dr. Ragini See, who is in agreement. GRIFFIN PEMBERTON, AIRCRAFT ENGINE ASSEMBLER [id number]/CPS #: [id number] [facility]
[2019-02-06] MEDS: Escitalopram * 10 MG TAB PO SCH (18:15)
[2019-02-06] MEDS: Amiodarone TAB* 200 MG PO SCH (18:15)
--- NOTE | 2019-02-06 19:51 | CONS ---
NEUROLOGY CONSULTATION: DATE OF CONSULT: 02/06/19 REFERRING PHYSICIAN: Noris Andrews NP LOCATION: She is in the emergency room to be admitted. CHIEF COMPLAINT: Confusion. HISTORY OF PRESENT ILLNESS: Sirisha Gutierrez is an 83-year-old woman known to me from outpatient evaluations for cognitive impairment. I had seen her initially a couple of years ago and she had a mild cognitive impairment on mental status testing. She has panvascular disease including bilateral carotid disease and prior endarterectomies. She had some fluctuating mental status evaluations over the subsequent couple of years. When I saw her last fall, her Mini-Mental Status Score was 20/30, which was a drop from prior evaluations. She has been admitted to the hospital several times with a worsened confusion. According to her who is present in the exam room today, she came into the room dressed at 7 in the morning, where usually she gets up at 10 or 11 in the morning. She said that she needed help. She seemed very disoriented, confused over and above her usual. He called her primary care physician, who has advised that they dial 911 and bring her in. Here in the hospital, she is awake and alert. She said she is "disappointed." When asked her why, she says "you know." When asked if she has a headache, she said she has a terrible headache. PAST MEDICAL HISTORY: Notable for coronary artery disease, severe left ventricular dysfunction, ventricular tachycardia, cardiac arrest, peripheral vascular disease, hypertension, polymyalgia rheumatica, chronic kidney disease, renal artery stenosis, congestive heart failure, orthostatic hypotension. She was hospitalized with hypertensive encephalopathy in November. She saw Dr. Ceballos in consultation at that time. She spent 3 weeks at [facility] and then back to home. She was hospitalized again about a week ago for palpitations. MEDICATIONS: At home consist of: 1. Clonazepam 1 mg p.o. q.h.s. 2. Metoprolol 12.5 mg p.o. q.h.s. 3. Gabapentin 600 mg p.o. q.h.s. 4. Calcium and vitamin D. 5. Atorvastatin 40 mg p.o. daily. 6. Potassium 20 mEq p.o. daily. 7. Vitamin B12 1000 mcg p.o. daily. 8. Plavix 75 mg p.o. daily. 9. Amiodarone 50 mg p.o. daily. 10. Furosemide 20 mg p.o. every other day. 11. Lexapro 10 mg p.o. daily. 12. Prednisone 10 mg p.o. daily. 13. Tramadol 25 mg p.o. t.i.d. p.r.n. pain. ALLERGIES: She is allergic to KEFLEX and IBUPROFEN. She is allergic to CHESTNUTS. REVIEW OF SYSTEMS: From the patient is otherwise fairly unproductive. She falls periodically, but she cannot when the last time was. Her thinks it was maybe a week ago. She has chronic headaches. She is a nonsmoker. She does not drink alcohol. She has not had any recent fevers or infections or chills. She has a poor appetite. She denies chest pain currently or shortness of breath. PHYSICAL EXAMINATION: She is thin and a little pale. Heart rate is in the 70s and seems regular and in sinus on the monitor. Respiratory rate is 26 and oxygen saturation is in the 80s on supplemental oxygen. Temperature is 98.3, blood pressure most recently 160/70. Heart is in a regular rhythm with a soft systolic murmur up the right sternal border. She has bilateral carotid bruits louder on the left. Oral mucosa is moist and atraumatic. She has a bruise, which looks old, on her left samuel. Neurologically, pupils are unequal with the left being about 3 mm and the right 2. Both react to light about a millimeter. She has had bilateral cataract extractions. Eye movements are normal and visual byrd are full to confrontation. Facial musculature is symmetric, as is facial sensation to light touch. Speech is soft but clear. She is a bit hard of hearing. Motor exam reveals some paratonia, but no spasticity. She has antigravity strength in all limbs. She has resistive strength as well. Reflexes are quite brisk diffusely. Plantar responses are flexor, however. Finger- to-nose maneuver is slow, but accurate. There is a little bit of high- frequency sustention tremor in the hands. She is oriented to person and hospital. She is not able to provide meaningful history and has very poor memory of her recent events. DIAGNOSTIC STUDIES/LAB DATA: Laboratory data includes a CT scan of the brain, which reveals atrophy, large ventricles, and hypodensities consistent with chronic subcortical vascular disease. CBC is notable for elevated white blood cell count at 15.3, when she was here a week ago was 17.4 and has been chronically elevated for about a year now. Her hemoglobin is 9.2 which is stable for her. Platelet count is 251,000. Her chemistry profile notable for creatinine of 1.8 which is similar to historical values. BUN is 30, which is also relatively stable. The rest of chemistry profile is fairly unremarkable. Her last vitamin B12 level on 01/22/19 was 1287 and TSH today is 1.96. Urinalysis today is described as clear with the negative nitrite and negative leukocyte esterase. There is no microscopic. IMPRESSION AND PLAN: Impression is that of gradual cognitive decline with fluctuations. She has an elevated white blood cell count, but no fever and her white count is chronically elevated. She has panvascular disease as well as carotid restenosis. Her last carotid ultrasound estimated 70% to 99% right carotid stenosis and less than 60% on the left. She is not really a surgical candidate because of her cardiac disease and so I am not sure it is worth repeating those studies which were done in the fall. I have put in an order for an EEG. She had a negative one in November, but it is possible her fluctuations are actually focal seizures. She is not able to get an MRI scan because of metal in her sinuses from prior surgery. We had tried to get one in the past. If her EEG is unremarkable, I am not sure I have anything further to offer. I had avoided cholinesterase inhibitors in the past as an outpatient because of her cardiac disease. [id number]/[facility] #: [id number] [place]
[2019-02-06] MEDS ORDERED: Gabapentin CAP(*) 300 MG PO SCH (21:00)
[2019-02-06] MEDS ORDERED: Atorvastatin* 40 MG TAB PO SCH (21:00)
[2019-02-06] MEDS ORDERED: Melatonin 3 MG TAB PO SCH (21:00)
[2019-02-06] MEDS ORDERED: Clopidogrel TAB* 75 MG PO SCH (21:00)
[2019-02-06] MEDS ORDERED: Metoprolol Succinate XL TAB* 25 MG PO SCH (21:00)
[2019-02-06] MEDS: Docusate CAP* 100 MG PO SCH (22:02)
[2019-02-06] MEDS: Ferrous Sulfate TAB* 325 MG PO SCH (22:03)
[2019-02-07 06:07] LABS: ABS Basophils 0 10^3/ul (0-0.2); ABS Eosinophils 0 10^3/ul (0-0.6); ABS Lymphocytes 1.2 10^3/ul (1.0-4.8); ABS Nucleated RBC 0 10^3/ul; Eosinophil % 0.1 %; Hematocrit 31 % (35-47); Hemoglobin 9.7 g/dl (12.0-16.0); Lymphocyte % 8.6 %; Mean Corpuscular HGB Conc 31 g/dl (31-36); Mean Corpuscular Hemoglobin 28 pg (27-31); Mean Corpuscular Volume 91 fL (80-97); Mean Platelet Volume 9.9 fL (7.4-10.4); Nucleated Red Blood Cells % 0; Platelet Count 270 10^3/ul (150-450); Red Blood Count 3.41 10^6/ul (4.00-5.40); Red Cell Distribution Width 18 % (10.5-15); White Blood Count 14.3 10^3/ul (3.5-10.8)
[2019-02-07 06:30] LABS: EGFR African American 34.6 (>60); EGFR Non-African American 28.6 (>60); Potassium 3.9 mmol/L (3.5-5.0)
[2019-02-07] MEDS ORDERED: Magnesium Oxide TAB* 400 MG PO SCH (09:00)
[2019-02-07] MEDS ORDERED: Cyanocobalamin TAB* 500 MCG PO SCH (09:00)
[2019-02-07] MEDS ORDERED: Potassium Chlor TAB* 20 MEQ TAB.ER PO SCH (09:00)
[2019-02-07] MEDS: Amiodarone TAB* 200 MG PO SCH (10:47)
[2019-02-07] MEDS: Escitalopram * 10 MG TAB PO SCH (10:49)
[2019-02-07] MEDS: Docusate CAP* 100 MG PO SCH (10:49)
[2019-02-07] MEDS: Ferrous Sulfate TAB* 325 MG PO SCH (10:50)
[2019-02-07] MEDS: predniSONE TAB* 10 MG PO SCH (10:51)
--- NOTE | 2019-02-07 13:26 | EEG ---
ELECTROENCEPHALOGRAPHY: DATE OF STUDY: 02/07/19 - ROOM #[id number] REFERRING PROVIDER: Dr. Jorge. LOCATION: She is an inpatient. CLINICAL HISTORY: Dementia with episodes of confusion and disorientation. MEDICATIONS: Include: 1. Tramadol. 2. Clonazepam. 3. Gabapentin. 4. Plavix. 5. Lipitor. 6. Prednisone. 7. Lexapro. 8. Amiodarone. REPORT: This 18-channel EEG is remarkable for background rhythms consisting of alpha rhythm in the occipital derivations in about 7 cycles per second. Beta rhythms are seen bifrontally. There is bitemporal theta rhythm seen as well. The patient is awake at the onset of the tracing. Activation procedures are not attempted. The patient does drowse and sleep intermittently with parasagittal sleep spindles and some vertex slowing. There are no clinical events. There are no focal, lateralized, or epileptiform abnormalities. INTERPRETATION: Mildly abnormal EEG due to mild slowing of background rhythms consistent with diffuse cerebral dysfunction. There are no focal or epileptiform features to this recording. [id number]/[facility] #: [id number] [facility] [place] [facility]
[2019-02-07 15:57] VITALS: BP 109/68
--- NOTE | 2019-02-07 23:46 | DS ---
CC: Grecia Anderson MD.* DISCHARGE SUMMARY: DATE OF ADMISSION: 02/06/19 DATE OF DISCHARGE: 02/07/19 PRIMARY CARE PHYSICIAN: Grecia Anderson MD. DISPOSITION: Home. CONDITION: Improved. PRIMARY DIAGNOSIS: Dementia with confusion. CONSULTS: Neurology. PERTINENT STUDIES: EEG, 02/07, with mild slowing of the background rhythm consistent with diffuse cerebral dysfunction without focal or epileptiform features. HISTORY OF PRESENT ILLNESS: The patient is an 83-year-old woman with significant past medical history, most notably dementia, who presented to the hospital with hours of confusion. According to the , the patient got dressed at 7 this morning. Usually, she wakes up a few hours later than that. The patient had stated that she needed help and was disoriented, confused above her usual. The called the patient's PCP who advised the to bring the patient to the hospital. On exam in the ER, the patient only stated that she was disappointed and when asked why she would only state "You know". HOSPITAL COURSE: The patient's lab values and head CT were unremarkable. An EEG showed mild slowing that would not explain the patient's fluctuation and mental status. She was evaluated by Neurology and it was believed that her symptoms were consistent with acute on chronic dementia with some waxing and waning behaviors. By morning of discharge, she was back to her baseline and felt comfortable taking her home. They were given resources for various facilities in case her care at home becomes a burden on her family. A 10-point review of systems was negative. On exam, the patient was well appearing, conversant with , alert, oriented x2, did not know date, speech fluent. Neuro exam grossly intact. DISCHARGE PLAN: The patient is to follow up with PCP and Neurology. DISCHARGE MEDICATIONS: For discharge medications, she is to resume all her home medications without changes as follows. 1. Metoprolol 12.5 daily. 2. Clonazepam 1 mg as needed at bedtime. 3. Gabapentin 600 mg at bedtime. 4. Multivitamin. 5. Atorvastatin 40 at bedtime. 6. Potassium chloride 20 mEq daily. 7. Vitamin B12 1000 mcg daily. 8. Clopidogrel 75 mg daily. 9. Magnesium oxide 400 mg daily. 10. Amiodarone 50 mg daily. 11. Furosemide 20 mg every other day. 12. Escitalopram 10 mg daily. 13. Prednisone 10 mg daily. 14. Melatonin 5 mg at bedtime. 15. Tramadol 25 mg t.i.d. as needed. 16. Ferrous sulfate 325 mg daily. TIME SPENT: Approximately 60 minutes were spent on discharge of this patient, more than half of which was spent with care, coordination at bedside for interview and exam. [id number]/[facility] #: [id number] MTDD
== END 2019-02-07 16:02 | disposition home or self-care (01) ==
LOC: ED 09:54 → MEDTELE 15:05
PROVIDERS: ADMIT Internal Medicine; ATTEND Internal Medicine
DX: F03.90 Unspecified dementia, unspecified severity, without behavioral disturbance, psychotic disturbance, mood disturbance, and anxiety (principal); R41.0 Disorientation, unspecified; Z95.5 Presence of coronary angioplasty implant and graft; Z86.73 Personal history of transient ischemic attack (TIA), and cerebral infarction without residual deficits; I50.22 Chronic systolic (congestive) heart failure; I10 Essential (primary) hypertension; E78.5 Hyperlipidemia, unspecified; K21.9 Gastro-esophageal reflux disease without esophagitis; I25.10 Atherosclerotic heart disease of native coronary artery without angina pectoris; I12.9 Hypertensive chronic kidney disease with stage 1 through stage 4 chronic kidney disease, or unspecified chronic kidney disease; N18.3 Chronic kidney disease, stage 3 (moderate); Z98.51 Tubal ligation status; Z87.891 Personal history of nicotine dependence
CPT/HCPCS: 36415; 70450; 71045; 80048; 80053; 80320; 80329; 81003; 83605; 83735; 84443; 84484; 85025; 93005; 95819; 99284; A9270-GY; G0378; G0480; G8978-GP-CL; G8979-GP-CI; G8987-GO-CL; G8988-GO-CI; J7512

== ENCOUNTER 2019-03-04 21:59 | Emergency (ER) | payer MEDICARE, OTHER ==
--- OUTSIDE RECORDS SUMMARY | 2019-03-04 22:12 | XMS REPORT | Continuity of Care Document ---
:1935 External Reference #:[id number] Author Name Saud Cornell MD Address [address] [place] [address] Care Team Providers Name Role Phone Grecia Anderson M.D. Primary Care Physician Unavailable Payers Date Identification Numbers Payment Provider Subscriber Effective: 2018 Policy Number: [id number] Medicare-[facility] [employer] Sirisha Dotson PayID: [id number] [address] [place] [address] Policy Number: [id number] [employer] Sirisha Dotson Group Number: [id number] [id number] Group Name: [id number] [place] [address] PayID: [id number] Advance Directives Description No Information Available Problems Date Description Provider Status Onset: 11/03/2008 Essential hypertension Active Onset: 11/02/2015 Bleeding from nose Nabil Simmons MD Active Onset: 05/04/2018 Bleeding from nose Nabil Simmons MD Active Onset: 02/11/2019 Acquired deformity of nose AugustoparNabil pinedo MD Active Family History Date Family Member(s) Observation Comments General Hearing Loss General Heart Attack General Heart Disease Social History Type Date Description Comments Sex Unknown Occupation Retired Tobacco Use Start: Unknown End: Former Cigarette Smoker for 45 years Unknown Packs Daily 2 Tobacco Use Start: Unknown quit at age 62 Tobacco Use Start: Unknown Never Smoked Cigars Tobacco Use Start: Unknown Never Smoked A Pipe Smoking Status Reviewed: 01/03/19 Never Smoked A Pipe Smokeless Tobacco Never Used Smokeless Tobacco ETOH Use Currently consumes 1 glass of wine per day Tobacco Use Start: Unknown End: Patient is a former smoker Unknown Allergies, Adverse Reactions, Alerts Date Description Reaction Status Severity Comments 11/05/2008 Nuts Active 11/05/2008 Aspirin Active 11/05/2008 Codeine Active 11/05/2008 Ibuprofen Active 11/05/2008 Cephalexin Active Medications Medication Date Status Form Strength Qnty SIG Indications Ordering Provider Tramadol HCL / Active Tablets 25mg 1-2 tabs Bael, 0000 every 4-6 Juan hours as MD needed pain Acidophilus / Active Capsules as directed Areli, 0000 Prieto VELASCO Clonazepam / Active Tablets 0.5mg 2 by at Areli, 0000 bedtime Prieto VELASCO Magnesium / Active Capsules 400mg twice daily Areli, Oxide 0000 Prieto VELASCO Amiodarone HCL / Active Tablets 50mg 1 by mouth Areli, 0000 every day Prieto VELASCO Vitamin B-12 / Active Tablets 1000mcg as directed Areli 0000 Sub Prieto VELASCO Atorvastatin / Active Tablets 40mg 1 by mouth Areli, Calcium 0000 every day Prieto VELASCO Gabapentin / Active Capsules 300mg 1 cap by Areli, 0000 mouth three Prieto VELASCO times a day Tylenol / Active Tablets 325mg as needed Unknown 0000 for pain Melatonin ER / Active Tablets ER 3mg as needed Unknown 0000 Escitalopram / Active Tablets 10mg Unknown Oxalate 0000 Calcium 600+D / Active Tablets 600-800 1 by mouth Unknown 0000 every day Plavix / Active Tablets 75mg 1 by mouth Unknown 0000 every day Ferrous / Active Tablets 325(65Fe) 1 by mouth Unknown Sulfate 0000 mg every other day Lisinopril / Active Tablets 2.5mg 1 by mouth Unknown 0000 every day Aspir-81 / Active Tablets DR 81mg 1 by mouth Unknown 0000 every day Carvedilol / Active Tablets 3.125mg take 1 Unknown 0000 tablet by mouth twice a day Furosemide / Active Tablets 20mg take 10mg Unknown 0000 by mouth once daily Prednisone / Active Tablets 10mg daily Unknown 0000 Atrovent 10/29/ Hx Solution 0.06% 1units 2 sprays in [facility] 2014 - each Nestor Cornell 11/01/ delores VELASCO 2017 twice a day as needed Mupirocin 03/26/ Hx Ointment 2% 15gm apply to [facility] 2014 - both Nestor Cornell 06/03/ delores VELASCO 2014 twice a day Bactroban 10/17/ Hx Ointment 2% 15gm apply to [facility] 2012 - both AmadouBethany Kraig, 06/03/ nostrils 2014 twice daily for 1 month Augmentin 12/08/ Hx Tablets 875-125mg 28tabs 1 po bid 461.0 Yvon Vizcarra 2011 - Strominge 02/14/ Boom rodriguez 2011 Biaxin XL 12/08/ Hx Tablets ER 500mg 28tabs 2 po 461.0 Yvon Vizcarra 2011 - 24HR [id number] Strominge 02/14/ for 14 days Boom rodriguez 2011 Ofloxacin 07/15/ Hx Solution 0.3% 1bottl 4 drops in Saud 2009 - e right ear Nestor Cornell, 03/24/ twice daily 2010 for 7 days Bacitracin 05/28/ Hx 1Tube apply to 784.7 Yvon Vizcarra Ointment 2009 - rim of nose Strominge 02/14/ both sides Boom rodriguez 2011 in the am and the pm. Zithromax 01/13/ Hx Tablets 250mg 1Pack take as 473.2 Saud Z-Piero 2009 - directed Nestor Cornell, 03/24/ 2010 Lortab 7.5 01/08/ Hx Tablets 7.5-500mg 30tabs 1 po every 784.7 Yvon Vizcarra 2009 - [facility] pr[facility] pain Boom rodriguez 2011 Vitamin D 12/17/ Hx Saud 2009 - Nestor Cornell, 12/05/ 2013 Will Bring A Saud List Of Meds 2008 - Nestor Cornell, With Her 11/05/ 2007 Atenolol 00/00/ Hx Unknown 2009 Enalapril /00/ Hx Unknown Maleate 2009 Singulair /00/ Hx Unknown 2009 Clonazepam /00/ Hx Unknown 2009 Zocor /00/ Hx Unknown 2009 Lexapro /00/ Hx Unknown 2009 Tylenol /00/ Hx Unknown 2009 Clonazepam /00/ Hx Unknown 2014 Atenolol 00/00/ Hx Unknown 2013 Simvastatin /00/ Hx Unknown - 2014 Singulair /00/ Hx Unknown 2011 Citalopram // Hx Unknown Hydrobromide 2011 Cozaar /00/ Hx Unknown 2011 Acidophilus /00/ Hx Unknown - 2014 Tylenol /00/ Hx Unknown - 2014 Budesonide /00/ Hx Unknown 0000 - Micronized 2011 Amlodipine /00/ Hx Tablets 5mg Unknown 2014 Sertraline HCL /00/ Hx Unknown 2012 Hydrocodone /00/ Hx Unknown Bitartrate 2014 Escitalopram / Hx Unknown Oxalate 2014 Pantoprazole 00/ Hx Unknown Sodium - 2013 Loperamide HCL /00/ Hx Unknown 2013 Oxybutynin / Hx Unknown Chloride ER - 2013 Bactroban / Hx Ointment 2% apply Unknown 0000 - intranasal 08/17/ twice a day 2016 Hydrocodone 00/00/ Hx Tablets 5-300mg 1-2 by Areli Bitartrate/Kwasi 0000 - mouth every Prieto VELASCO taminophen as needed 2014 Clopidogrel 00/00/ Hx Tablets 75mg 1 by mouth Areli, Bisulfate 0000 - every day Prieto VELASCO 2016 Potassium 00/00/ Hx Capsules 10Meq 1 by mouth Areli, Chloride ER 0000 - ER twice a day Prieto VELASCO 2017 Poly-Iron 150 00/00/ Hx Capsules 150mg As directed Areli, 0000 - Prieto VELSACO 2016 Aspirin Adult 00/00/ Hx Tablets DR 81mg 1 by mouth Areli, Low Dose 0000 - daily Prieto VELASCO 2016 Metoprolol 00/ Hx Tablets 25mg 1/2 tab by Areli Tartrate 0000 - mouth daily Prieto VELASCO 2016 Pantoprazole 00/00/ Hx Tablets DR 40mg 1 by mouth Areli, Sodium 0000 - every day Prieto VELASCO 2016 Premarin 00/ Hx Tablets 0.3mg 1 by mouth Areli, 0000 - every day Prieto VELASCO 2016 Estrogen / Hx as directed Lauren 0000 - Juan 2016 Lexapro / Hx Tablets 5mg 1 by mouth Justin 0000 - every day Grecia Nur 2017 Amoxicillin/Cl / Hx Tablets 875-125mg take 1 Unknown avulanate 0000 - tablet by Potassium 05/25/ mouth twice 2018 a day for 7 days Clopidogrel 00/ Hx Tablets 75mg Unknown Bisulfate 0000 - 2017 Prednisone 00/ Hx Tablets 8mg 2 tabs 5 Unknown 0000 - days a week 2018 Metoprolol / Hx Tablets ER 25mg 1/2 by Unknown Succinate ER 0000 - 24HR mouth every 2018 Immunizations CPT Code Status Date Vaccine Lot # [id number] Given 08/11/2014 Influenza Virus Vaccine, 3 Years Of Age And Above, Intramuscular 88704 Given Unknown Pneumococcal Vaccine 2Yrs Or Older [id number] Ordered 09/03/2015 Influenza Virus Vaccine, 3 Years Of Age And Above, Intramuscular Vital Signs Date Vital Result Comment 02/26/2019 2:41pm Weight 125.00 lb Weight 56.700 kg Height 60.75 inches 5'0.75" Height in cm's 154.3 cm BMI (Body Mass Index) 23.8 kg/m2 01/03/2019 1:34pm Weight 125.00 lb Weight 56.700 kg Height 60.75 inches 5'0.75" Height in cm's 154.3 cm BMI (Body Mass Index) 23.8 kg/m2 12/13/2018 4:42pm Weight 114.00 lb Weight 51.710 kg Height 60.75 inches 5'0.75" Height in cm's 154.3 cm BMI (Body Mass Index) 21.7 kg/m2 11/02/2018 10:43am Weight 114.00 lb Weight 51.710 kg Height 60.75 inches 5'0.75" Height in cm's 154.3 cm BMI (Body Mass Index) 21.7 kg/m2 06/29/2018 8:41am Weight 114.00 lb Weight 51.710 kg Height 60.75 inches 5'0.75" Height in cm's 154.3 cm BMI (Body Mass Index) 21.7 kg/m2 05/29/2018 8:32am Weight 122.00 lb Weight 55.339 kg Height 60.75 inches 5'0.75" Height in cm's 154.3 cm BMI (Body Mass Index) 23.2 kg/m2 05/25/2018 9:45am Weight 122.00 lb Weight 55.339 kg Height 60.75 inches 5'0.75" Height in cm's 154.3 cm BMI (Body Mass Index) 23.2 kg/m2 05/08/2018 10:07am Weight 122.00 lb Weight 55.339 kg Height 60.75 inches 5'0.75" Height in cm's 154.3 cm BMI (Body Mass Index) 23.2 kg/m2 08/17/2017 1:38pm BP Systolic 97 mmHg BP Diastolic 64 mmHg Heart Rate 66 /min Respiratory Rate 17 /min Weight 122.00 lb Weight 55.339 kg Height 60.75 inches 5'0.75" Height in cm's 154.3 cm BMI (Body Mass Index) 23.2 kg/m2 06/24/2016 10:52am BP Systolic 93 mmHg BP Diastolic 51 mmHg Heart Rate 74 /min Respiratory Rate 17 /min Weight 118.00 lb Weight 53.525 kg Height 60.75 inches 5'0.75" Height in cm's 154.3 cm BMI (Body Mass Index) 22.5 kg/m2 04/29/2016 11:18am BP Systolic 87 mmHg BP Diastolic 55 mmHg Heart Rate 77 /min Respiratory Rate 17 /min Weight 118.00 lb Weight 53.525 kg Height 60.75 inches 5'0.75" Height in cm's 154.3 cm BMI (Body Mass Index) 22.5 kg/m2 04/07/2016 11:09am BP Systolic 87 mmHg BP Diastolic 52 mmHg Heart Rate 81 /min Respiratory Rate 17 /min Weight 118.00 lb Weight 53.525 kg Height 60.75 inches 5'0.75" Height in cm's 154.3 cm BMI (Body Mass Index) 22.5 kg/m2 11/02/2015 10:25am BP Systolic 85 mmHg BP Diastolic 61 mmHg Heart Rate 67 /min Respiratory Rate 16 /min Weight 118.00 lb Weight 53.525 kg Height 60.75 inches 5'0.75" Height in cm's 154.3 cm BMI (Body Mass Index) 22.5 kg/m2 09/03/2015 2:24pm BP Systolic 74 mmHg BP Diastolic 50 mmHg Heart Rate 68 /min Respiratory Rate 17 /min Weight 118.00 lb Weight 53.525 kg Height 60.75 inches 5'0.75" Height in cm's 154.3 cm BMI (Body Mass Index) 22.5 kg/m2 08/27/2014 2:10pm BP Systolic 98 mmHg BP Diastolic 71 mmHg Heart Rate 108 /min Respiratory Rate 17 /min Weight 126.00 lb Weight 57.154 kg Height 60.75 inches 5'0.75" Height in cm's 154.3 cm BMI (Body Mass Index) 24.0 kg/m2 12/05/2013 2:42pm BP Systolic 113 mmHg BP Diastolic 70 mmHg Heart Rate 72 /min Respiratory Rate 16 /min Weight 126.00 lb Weight 57.154 kg Height 60.75 inches 5'0.75" Height in cm's 154.3 cm BMI (Body Mass Index) 24.0 kg/m2 10/17/2013 1:51pm BP Systolic 100 mmHg BP Diastolic 61 mmHg Heart Rate 66 /min Respiratory Rate 17 /min Weight 126.00 lb Weight 57.154 kg Height 60.75 inches 5'0.75" Height in cm's 154.3 cm BMI (Body Mass Index) 24.0 kg/m2 02/15/2012 1:52pm BP Systolic 103 mmHg BP Diastolic 84 mmHg Heart Rate 86 /min Respiratory Rate 16 /min Weight 148.00 lb Weight 67.133 kg Height 60.75 inches 5'0.75" Height in cm's 154.3 cm BMI (Body Mass Index) 28.2 kg/m2 09/15/2011 2:17pm BP Systolic 158 mmHg BP Diastolic 75 mmHg Heart Rate 69 /min Respiratory Rate 16 /min Weight 148.00 lb Weight 67.133 kg Height 60.75 inches 5'0.75" Height in cm's 154.3 cm BMI (Body Mass Index) 28.2 kg/m2 06/02/2010 11:39am BP Systolic 120 mmHg BP Diastolic 73 mmHg Heart Rate 64 /min Respiratory Rate 16 /min 05/28/2010 10:31am BP Systolic 147 mmHg BP Diastolic 90 mmHg Heart Rate 64 /min Respiratory Rate 16 /min 11/05/2008 2:11pm BP Systolic 153 mmHg BP Diastolic 59 mmHg Heart Rate 65 /min Respiratory Rate 16 /min Results Test Date Facility Test Result H/L Range Note Comp Metabolic 05/29/2018 [facility] Sodium 141 mmol/ L N 135-145 Panel c/o Department [place] [address] [phone] Potassium 4.9 mmol/L N 3.5-5.0 Chloride 103 mmol/L N 101-111 Co2 Carbon Dioxide 31 mmol/L N 22-32 Anion Gap 7 mmol/L N 2-11 Glucose 100 mg/dL N 70-100 Blood Urea Nitrogen 22 mg/dL N 6-24 Creatinine 1.52 mg/dL High 0.51-0.95 BUN/Creatinine Ratio 14.5 N 8-20 Calcium 9.2 mg/dL N 8.6-10.3 Total Protein 6.5 g/dL N 6.4-8.9 Albumin 3.5 g/dL N 3.2-5.2 Globulin 3.0 g/dL N 2-4 Albumin/Globulin Ratio 1.2 N 1-3 Total Bilirubin 0.70 mg/dL N 0.2-1.0 Alkaline Phosphatase 85 U/L N 34-104 Alt 9 U/L N 7-52 Ast 20 U/L N 13-39 Egfr Non- 32.8 >60 Egfr 39.7 >60 1 Laboratory test 05/29/2018 [facility] Magnesium 1.9 mg /dL N 1.9-2.7 finding c/o Department of Laboratories [place], [place] [id number] [phone] C Reactive Protein 23.57 mg/L High <8.01 Ferritin 32.2 ng/mL N 11-307 Vitamin B12 > 1450 pg/mL High 180-914 2 CBC Auto Diff 05/29/2018 [facility] White Blood 7.3 10 ^3/uL N 3.5-10.8 c/o Department of Laboratories Count [place], [place] [id number] [phone] Red Blood Count 3.57 10^6/uL Low 4.00-5.40 Hemoglobin 9.4 g/dL Low 12.0-16.0 Hematocrit 30 % Low 35-47 Mean Corpuscular Volume 85 fL N 80-97 Mean Corpuscular Hemoglobin 26 pg Low 27-31 Mean Corpuscular HGB Conc 31 g/dL N 31-36 Red Cell Distribution Width 18 % High 10.5-15 Platelet Count 237 10^3/uL N 150-450 Mean Platelet Volume 10.5 um3 High 7.4-10.4 Abs Neutrophils 5.0 10^3/uL N 1.5-7.7 Abs Lymphocytes 0.9 10^3/uL Low 1.0-4.8 Abs Monocytes 1.0 10^3/uL High 0-0.8 Abs Eosinophils 0.3 10^3/uL N 0-0.6 Abs Basophils 0.1 10^3/uL N 0-0.2 Abs Nucleated RBC 0 10^3/uL Granulocyte % 69.1 % N 38-83 Lymphocyte % 12.4 % Low 25-47 Monocyte % 13.7 % High 0-7 Eosinophil % 3.8 % N 0-6 Basophil % 1.0 % N 0-2 Nucleated Red Blood Cells % 0 Laboratory test 05/29/2018 [facility] Erythrocyte Sed 47 mm/Hr High 0-40 finding c/o Department of Laboratories Rate [place], [place] [id number] [phone] Laboratory test 12/08/2011 [facility] Culture -------- - 3 finding c/o Department of Laboratories Sensitivity/Gram ------- [place] [address] St <SEE [phone] NOTE> CBC Auto Diff 10/18/2011 [facility] White Blood 7.8 CUMM 4.8-10.8 c/o Department of Laboratories Count [place], [place] [id number] [phone] Red Cell Count 3.84 CUMM Low 4.2-5.4 [...] Basophils 0 0-0.2 Comp Metabolic Panel 10/18/2011 [facility] Sodium 141 mmol/L 135-145 c/o Department [place] [address] [phone] Potassium 4.2 mmol/L 3.5-5.0 Chloride 106 mmol/L [...] eGFR 43.5 > 60 6 Lipid Profile 10/18/2011 [facility] Triglyceride 99 mg /dL 40-200 (Trig/Chol/HDL) c/o Department [place] [address] [phone] Cholesterol 180 mg/dL Less Than 200 7 High Density Lipoprotein 77 mg/dL High 40-60 8 Cholesterol/HDL Ratio 2.34 AVERAGE 1-4.44 Low Density Lipoprotein 83 mg/dL Less Than 100 9 Laboratory test 10/18/2011 [facility] CPK (Creatine 72 U/L 0-170 finding c/o Department of Laboratories Kinase) [place] [address] [phone] CBC No Diff 10/05/2011 [facility] White Blood 9.2 CUMM 4.8-10.8 c/o Department [place] [address] [phone] Red Cell Count 3.90 CUMM Low 4.2-5.4 Hemoglobin 13.5 g/dL 12.0-16.0 Hematocrit 39 % 35-47 Mean Corpuscular Volume 100 um3 High 79-97 Mean Corpuscular Hemoglob 35 pg High 27-31 Mean Corpuscular HGB Cone 34 g/dL 32-36 Redcell Distribution WDTH 14 % 10.5-15 Platelet Count 168 CUMM 150-450 Mean Platelet Volume 11.6 um3 High 7.4-10.4 Basic Metabolic 10/05/2011 [facility] Sodium 139 mmol/ L 135-145 Panel c/o Department of Laboratories [place], [place] [id number] [phone] Potassium 4.1 mmol/L 3.5-5.0 Chloride 104 mmol/L 101-111 Co2 (Carbon Dioxide) 27.0 mmol/L 22-32 Anion Gap 8.0 mmol/L 2-11 10 Glucose 110 mg/dL High 70-100 BUN 23 mg/dL 6-24 Creatinine 1.4 mg/dL 0.50-1.40 One Over Creatinine 0.71 BUN/Creatinine Ratio 16.4 8-20 Calcium 9.7 mg/dL 8.1-9.9 eGFR Non- 36.7 > 60 eGFR 47.1 > 60 11 Basic Metabolic 04/26/2011 [facility] Sodium 137 mmol/ L 135-145 Panel c/o Department of Laboratories [place], [place] [id number] [phone] Potassium 5.5 mmol/L High 3.5-5.0 Chloride 104 mmol/L 101-111 Co2 (Carbon Dioxide) 26.0 mmol/L 22-32 Anion Gap 7.0 mmol/L 2-11 12 Glucose 96 mg/dL 70-100 BUN 38 mg/dL High 6-24 Creatinine 1.80 mg/dL High 0.50-1.40 One Over Creatinine 0.50 BUN/Creatinine Ratio 21.1 High 8-20 Calcium 9.5 mg/dL 8.1-9.9 eGFR Non- 27.5 > 60 eGFR 35.4 > 60 13 CBC Auto Diff 04/26/2011 [facility] White Blood 10.8 CUMM 4.8-10.8 c/o Department [place] [address] [phone] Red Cell Count 3.69 CUMM Low 4.2-5.4 Hemoglobin 12.3 g/dL 12.0-16.0 Hematocrit 37 % 35-47 Mean Corpuscular Volume 101 um3 High 79-97 Mean Corpuscular Hemoglob 33 pg High 27-31 Mean Corpuscular HGB Cone 33 g/dL 32-36 Redcell Distribution WDTH 14 % 10.5-15 Platelet Count 181 CUMM 150-450 Mean Platelet Volume 11.4 um3 High 7.4-10.4 14 Manual Differential 04/26/2011 [facility] Polysegmented 74 % 38-83 c/o Department [place] [address] [phone] Lymphocyte 18 % Low 25-47 Monocyte 5 % 0-13 Eosinophil 2 % 0-6 Basophil 1 % 0-2 Absolute Neutrophil Count 7.9 Macrocytosis SLIGHT Neutrophil Cytoplasmic 03/24/2011 [facility] C-Anca NEGATIVE AB c/o Department [place] [address] [phone] P-Anca Final RPT NEGATIVE Anca Reviewed By (SEE NOTE) Negative 15 Laboratory test 03/24/2011 [facility] Erythrocyte Sed 34 MM/HR 0-40 finding c/o Department [place] [address] [phone] CBC With Manual 03/24/2011 [facility] White Blood 8.4 CUMM 4.8-10.8 Diff c/o Department [place] [address] [phone] Red Cell Count 3.76 CUMM Low 4.2-5.4 [...] Neutrophil Count 5.8 Anisocytosis SLIGHT Laboratory test 03/24/2011 [facility] C Reactive < 0.5 mg/dL Less Than finding c/o Department of Laboratories Protein 0.5 [place] [address] [phone] Comp Metabolic 03/24/2011 [facility] Sodium 142 mmol/ L 135-145 Panel c/o Department [place] [address] [phone] Potassium 5.2 mmol/L High 3.5-5.0 Chloride 109 [...] > 60 18 Comp Metabolic Panel 02/08/2011 [facility] Sodium 136 mmol/L 135-145 c/o Department [place] [address] [phone] Potassium 5.6 mmol/L High 3.5-5.0 Chloride 106 [...] eGFR 40.5 > 60 21 Laboratory test 02/08/2011 [facility] C Reactive 0.6 mg/dL High Less Than finding c/o Department of Laboratories Protein 0.5 [place] [id number] [phone] Urinalysis 02/08/2011 [facility] Ua Color YELLOW Yellow W/Microscopic c/o Department [place] [address] [phone] Appearance-Urine CLEAR Clear Specific [place]-Ur 1.016 1.010-1.030 Esterase-Urine 1+ Abnormal Negative Nitrite NEGATIVE Negative Aodlqoykupsd-Mh-HRY NEGATIVE Negative Protein-Urine NEGATIVE Negative PH-Urine 5.5 5-9 Blood-Urine NEGATIVE Negative Ketones-Urine NEGATIVE Negative Bilirubin-Ur NEGATIVE Negative Glucose-Urine NEGATIVE Negative WBC-Urine 0-2 0-5 RBC-Urine NONE SEEN 0-2 Mucus Urine SMALL None Epith Cells-Ur FEW None Bacteria-Urine TRACE None CBC No Diff 02/08/2011 [facility] White Blood 10.1 CUMM 4.8-10.8 c/o Department [place] [address] [phone] Red Cell Count 3.93 CUMM Low 4.2-5.4 Hemoglobin 12.8 g/dL 12.0-16.0 Hematocrit 39 % 35-47 Mean Corpuscular Volume 98 um3 High 79-97 Mean Corpuscular Hemoglob 33 pg High 27-31 Mean Corpuscular HGB Cone 33 g/dL 32-36 Redcell Distribution WDTH 14 % 10.5-15 Platelet Count 160 CUMM 150-450 Mean Platelet Volume 11.1 um3 High 7.4-10.4 Laboratory test 02/08/2011 [facility] Erythrocyte Sed 23 MM/HR 0-40 finding c/o Department [place] [address] [phone] Urine Culture & 02/08/2011 [facility] Urine Culture NG 22 Sensitivi c/o Department [place] [address] [phone] Neutrophil 02/08/2011 [facility] C-Anca NEGATIVE Cytoplasmic AB c/o Department of Laboratories [place], [place] [id number] [phone] P-Anca Final RPT NEGATIVE Anca Reviewed By (SEE NOTE) Negative 23 Vitamin D, 25 12/24/2010 [facility] 25-Hydroxy Vitamin <4.0 ng/mL () Hydroxy c/o Department of Laboratories D2 [place] [address] [phone] 25-Hydroxy Vitamin D3 50 ng/mL () 25-Hydroxy Vitamin D Total 50 ng/mL () 24 Laboratory test 12/24/2010 [facility] Ferritin 113 NG/ ML 11.0-307 finding c/o Department [place] [address] [phone] Lipid Profile 12/24/2010 [facility] Triglyceride 200 mg/dL 40-200 (Trig/Chol/HDL) c/o [place] [address] [phone] Cholesterol 210 mg/dL High Less Than 200 25 High Density Lipoprotein 61 mg/dL High 40-60 26 Cholesterol/HDL Ratio 3.44 AVERAGE 1-4.44 Low Density Lipoprotein 109 mg/dL High Less Than 100 27 Comp Metabolic Panel 12/24/2010 [facility] Sodium 138 mmol/L 135-145 c/o Department [place] [address] [phone] Potassium 5.1 mmol/L High 3.5-5.0 Chloride 105 [...] eGFR 47.3 > 60 30 CBC With 12/24/2010 [facility] White Blood 6.1 CUMM 4.8-10.8 Electronic Diff c/o Department [place] [address] [phone] Red Cell Count 4.02 CUMM Low 4.2-5.4 [...] 0-0.6 Abs Basophils 0 0-0.2 CBC With 11/30/2010 [facility] White Blood 7.4 CUMM 4.8-10.8 Electronic Diff c/o Department [place] [address] [phone] Red Cell Count 3.89 CUMM Low 4.2-5.4 [...] Basophils 0 0-0.2 Comp Metabolic Panel 11/30/2010 [facility] Sodium 137 mmol/L 135-145 c/o Department [place] [address] [phone] Potassium 5.0 mmol/L 3.5-5.0 Chloride 104 mmol/L [...] eGFR 43.7 > 60 33 Laboratory test 11/30/2010 [facility] C Reactive 0.7 mg/dL High Less Than finding c/o Department of Laboratories Protein 0.5 [place] [address] [phone] Neutrophil 11/30/2010 [facility] C-Anca POSITIVE Cytoplasmic AB c/o Department [place] [address] [phone] C-Anca 1:40 1:40 Anca Reviewed By (SEE NOTE) Negative 34 Surgical 10/19/2010 [facility] Surgical -- 35 Pathology c/o Department of Laboratories Pathology <SEE NOTE> [place] [address] [phone] CBC With 10/12/2010 [facility] White Blood 6.9 CUMM 4.8- 36 Electronic c/o Department of Laboratories Count 10.8 [place] [address] [phone] Red Cell Count 3.94 CUMM Low 4.2-5.4 Hemoglobin 12.9 g/dL 12.0-16.0 Hematocrit 39 % 35-47 Mean Corpuscular Volume 98 um3 High 79-97 Mean Corpuscular Hemoglob 33 pg High 27-31 Mean Corpuscular HGB Cone 33 g/dL 32-36 Redcell Distribution WDTH 14 % 10.5-15 Platelet Count 185 CUMM 150-450 Mean Platelet Volume 10.0 um3 7.4-10.4 Gran % 59.9 % 38-83 Lymph % 27.9 % 25-47 Mononuclear % 10.4 % High 1-9 Eosinophil % 1.6 % 0-6 Basophil % 0.2 % 0-2 Abs Lymphs 1.9 1.0-4.8 Abs Mononuclear 0.7 0-0.8 Absolute Neutrophil Count 4.1 1.5-7.7 Abs Eosinophils 0.1 0-0.6 Abs Basophils 0 0-0.2 Basic Metabolic 10/12/2010 [facility] Sodium 141 mmol/ L 135-145 Panel c/o Department [place] [address] [phone] Potassium 4.9 mmol/L 3.5-5.0 Chloride 110 mmol/L 101-111 Co2 (Carbon Dioxide) 25.0 mmol/L 22-32 Anion Gap 6.0 mmol/L 2-11 37 Glucose 104 mg/dL High 70-100 38 BUN 29 mg/dL High 6-24 Creatinine 1.50 mg/dL High 0.50-1.40 One Over Creatinine 0.60 BUN/Creatinine Ratio 19.3 8-20 Calcium 9.7 mg/dL 8.1-9.9 eGFR Non- 36.1 > 60 eGFR 43.7 > 60 39 Laboratory test 09/15/2010 [facility] Anti Dna NEGATIVE Negative finding c/o Department of Laboratories ([place] [address] Stranded Dna) [phone] Neutrophil 09/15/2010 [facility] C-Anca POSITIVE Cytoplasmic AB c/o Department [place] [address] [phone] C-Anca 1:80 1:80 Anca Reviewed By (SEE NOTE) Negative 40 Ssa/SSB 09/15/2010 [facility] Ssa NEGATIVE Negative c/o Department [place] [address] [phone] SSB NEGATIVE Negative Honey 09/15/2010 [facility] Antinuclear POSITIVE Abnormal Negative (Antinuclear c/o Department of Laboratories AB Antibodies) [place] [address] [phone] Honey Pattern HOMOGENEOUS Abnormal Antinuclear AB 1:80 Abnormal Reviewed By (SEE NOTE) 41 Laboratory test 09/15/2010 [facility] Hla B27 Negative () 42 finding c/o Department of Laboratories [place], [place] [id number] [phone] Total Protein 24HR 09/15/2010 [facility] Total Protein 13 mg/dL Urine c/o Department of [place] [address] [phone] Urine Total Protein/24HR 130 MG/24HR High 50-100 Creatinine 09/15/2010 [facility] Creatinine Random 83.74 mg/dL Clearance c/o Department [place] [address] [phone] Creat Clearance 42 mL/min Low 80-125 Hours Of Collection 24 HR 24- Urine Volume Measurement 1000 ML Laboratory test 09/15/2010 [facility] Erythrocyte Sed 26 MM/HR 0-40 finding c/o Department [place] [address] [phone] CBC With 09/15/2010 [facility] White Blood 6.5 CUMM 4.8-10.8 Electronic Diff c/o Department [place] [address] [phone] Red Cell Count 3.76 CUMM Low 4.2-5.4 [...] 0-0.6 Abs Basophils 0 0-0.2 Laboratory test 09/15/2010 [facility] C Reactive 0.5 mg/dL Less Than finding c/o Department of Laboratories Protein 0.5 [place], [place] [id number] [phone] CBC With 09/07/2010 [facility] White Blood 7.2 CUMM 4.8-10.8 Electronic Diff c/o Department [place] [address] [phone] Red Cell Count 3.96 CUMM Low 4.2-5.4 [...] Basophils 0 0-0.2 Comp Metabolic Panel 09/07/2010 [facility] Sodium 137 mmol/L 135-145 c/o Department [place] [address] [phone] Potassium 5.3 mmol/L High 3.5-5.0 Chloride 105 [...] eGFR 37.8 > 60 46 Lipid Profile 09/07/2010 [facility] Triglyceride 176 mg/dL 40-200 (Trig/Chol/HDL) c/o Department [place] [address] [phone] Cholesterol 209 mg/dL High Less Than 200 47 High Density Lipoprotein 66 mg/dL High 40-60 48 Cholesterol/HDL Ratio 3.17 AVERAGE 1-4.44 Low Density Lipoprotein 108 mg/dL High Less Than 100 49 Laboratory test 09/07/2010 [facility] TSH 1.53 MIU/ML 0.34-5.60 finding c/o Department [place] [address] [phone] Hemoglobin A1c 5.7 % Less Than 6.0 50 Laboratory test 08/31/2010 [facility] Erythrocyte Sed 36 MM/HR 0-40 [place] [address] Rate [phone] C Reactive Protein 0.9 mg/dL High Less Than 0.5 Urinalysis 08/31/2010 [facility] Ua Color YELLOW Yellow W/[place] [address] [phone] Appearance-Urine CLEAR Clear Specific [place]-Ur 1.017 1.010-1.030 Esterase-Urine 1+ Abnormal Negative Nitrite NEGATIVE Negative [id number]-Dv-[id number] NEGATIVE Negative Protein-Urine NEGATIVE Negative PH-Urine 5.5 5-9 Blood-Urine NEGATIVE Negative Ketones-Urine NEGATIVE Negative Bilirubin-Ur NEGATIVE Negative Glucose-Urine NEGATIVE Negative WBC-Urine 1-3 0-5 RBC-Urine NONE SEEN 0-2 Epith Cells-Ur FEW None Urine Culture & 08/31/2010 [facility] Urine Culture NG [address] [place] [address] Sensitivi [phone] Neutrophil 08/12/2010 [facility] C-Anca POSITIVE Cytoplasmic AB c/o Department [place] [address] [phone] C-Anca 1:20 1:20 P-Anca Final RPT NEGATIVE Anca Reviewed By (SEE NOTE) Negative 52 Laboratory test 07/15/2010 [facility] Angiotensin 6 U/L Abnormal 8-53 53 [place] [address] Converting [phone] Enzyme 1 Because ethnic data is not always [...] Deficient Range <145 3 RUN DATE: 12/12/11 [facility] NMI LIVE PAGE 1 RUN TIME: 923 Specimen Inquiry RUN USER: INTERFACE Name: SIRISHA DOTSON Status: REG REF Re12/08/11 Age/Sex: 76/F Unit#: [id number] Location: [facility] : 36 SPEC #: [id number] SAMANTHA: 12/08/11 STATUS: COMP REQ #: [id number] RECD: 12/09/[address]: Ramin MISTRY,Jessa Wilson SOURCE: MISC ENTR: 12/09/[address]: SPDESC: SINUS,LMAX ORDERED: CULT SENS/GS QUERIES: MEDENT REQUISITION # [id number] ACT WKST: B 12/12/11 #1 Procedure Result Verified Site > CULTURE SENSITIVITY Final 12/12/11- 0924 ML Organism 1 PSEUDOMONAS AERUGINOSA Organism 2 SADIA SPECIES QUANTITY FEW "NOT ALBICANS" 1. PSEUDOMONAS AERUGINOSA RX M.I.C. ------ --------- AMIKACIN S <=2 LEVOFLOXACIN S 0.5 CIPROFLOXACIN S <=0.25 GENTAMICIN S <=1 CEFTAZIDIME S 4 IMIPENEM S <=1 *These antibiotics are not available in the [employer] Formulary. Contact the Microbiology Department for any additional antibiotic reporting. > GRAM STAIN SMEAR Final 12/09/11- 1547 ML POLYS NONE SMEAR: MODERATE COLUMNAR EPITH FEW YEAST LIKE CELLS - [facility] State Permit #[id number] [address] [place] [id number] DEPARTMENT OF PATHOLOGY, [address] [place] [address] [facility] Permit #[id number] Mian Luna M.D. Director David Pak M.D. Tectonophysicist 4 Anion gap measurement may be of limited value in the presence of any alkalosis, especially in a combined acid base disorder. . 5 A metabolite of Naproxen, O-desmethylnaproxen, has been shown to interfere with the [place] method for measuring total bilirubin. Samples from [...] has been shown to interfere with the [place] method for measuring total bilirubin. Samples from [...] has been shown to interfere with the [place] method for measuring total bilirubin. Samples from [...] normal population are 25-80 Test Performed by: [facility] Dpt of Lab Med and Pathology [address] [place] [address] Flying Instructor: Tang Ochoa III, M.D. 25 CHOLESTEROL INTERPRETATION: [...] has been shown to interfere with the [place] method for measuring total bilirubin. Samples from [...] LUNA MD 35 ---- RUN DATE: 10/20/10 [facility] NMI LIVE PAGE 1 RUN TIME: 1732 Specimen Inquiry RUN USER: INTERFACE -- Name: SIRISHA DOTSON [facility]#: [id number] Status: [facility] Re10/19/10 Age/Sex: 75/F Unit#: [id number] [facility] -- Specimen: [id number] Spec Date: 10/19/[address] [facility] Dr: Saud Cornell MD Spec Type: SURGICAL P Received: 10/19/10-4684 Copies to: SPECIMEN BIOPSY NASAL SEPTUM HISTORY [...] 10/20/10 1732 -- -- DEPARTMENT OF PATHOLOGY, [address] [place] [address] [facility] Permit #[id number] Mian Luna M.D. Director David Pak M.D. Record Label Intern Dir tejinder -- 37 SURGERY DATE IS 10-19-10 37 Anion gap measurement may be of limited value in the presence of any alkalosis, especially in a combined acid base disorder. . 38 Note change in reference range as of 07/17/08. The change was based on recommendations from the [place] [employer]. 39 Because ethnic data is [...] 42 Method: Flow Cytometry Test Performed by: [facility] Dpt of Lab Med and Pathology [address] [place] [id number] Flying Instructor: Tang Ochoa III, M.D. 43 Anion gap measurement may be of limited value in the presence of any alkalosis, especially in a combined acid base disorder. . 44 Note change in reference range as of 07/17/08. The change was based on recommendations from the [place] [employer]. 45 A metabolite of Naproxen, O-desmethylnaproxen, has been shown to interfere with the [place] method for measuring total bilirubin. Samples from [...] IN SELECTIVE PATIENTS <6.0%. PLEASE REFER TO [employer] DIABETIC CARE GUIDELINES FOR FURTHER INFORMATION. 51 FINAL: NO GROWTH DAY 2 (<1,000 CFU/mL) 52 REVIEWED BY MIAN LUNA MD 53 The use of angiotensin converting enzyme (KWASI)-inhibiting antihypertensive drugs will cause decreased KWASI values. Test Performed by: [facility] Dpt of Lab Med and Pathology [address] [place] [id number] Flying Instructor: Tang Ochoa III, M.D. Procedures Date Code Description Status 02/11/2019 69270 Control Nasal Hemorrhage (Extensive Cautery/Packing) Any Completed Method 01/03/2019 20844 Nasal Endoscopy, Diagnostic Completed 12/13/2018 33538 Nasal Endoscopy, Diagnostic Completed 06/29/2018 30765 Tympanometry Completed 06/29/2018 19917 Comprehensive Audiogram Completed 05/25/2018 64661 Control Nasal Hemorrhage (Extensive Cautery/Packing) Any Completed Method 05/09/2018 81862 Endoscopic Nasal Cautery Completed 08/17/2017 35025 Fiberoptic Laryngoscopy Completed 11/30/2016 28338 Nasal Endoscopy, Diagnostic Completed 06/24/2016 68806 Nasal Endoscopy, Diagnostic Completed 05/12/2016 56492 Comprehensive Audiogram Completed 05/12/2016 02858 Tympanometry Completed 04/26/2016 12601 Endoscopic Nasal Cautery Completed 04/07/2016 60323 Nasal Endoscopy, Diagnostic Completed 11/02/2015 46772 Contol Nasal Hemorrhage, Anterior, Simple Completed 09/03/2015 91528 Fiberoptic Laryngoscopy Completed 06/03/2015 11688 Nasal Endoscopy, Diagnostic Completed 10/17/2013 69507 Nasal Endoscopy, Diagnostic Completed 04/05/2012 96241 Nasal Endoscopy, Diagnostic Completed 10/11/2011 76329 Insertion, Nasal Septal Button Completed 10/11/2011 16900 Control Nasal Hemorrhage (Extensive Cautery/Packing) Any Completed Method 09/15/2011 55960 Nasal Endoscopy, Diagnostic Completed 10/19/2010 30194 Endoscopic Nasal Cautery Completed 10/06/2010 22798 Nasal Endoscopy, Diagnostic Completed 08/12/2010 64834 Tympanometry Completed 08/12/2010 58766 Comprehensive Audiogram Completed 07/22/2010 92083 Tympanometry Completed 07/22/2010 03431 Comprehensive Audiogram Completed 07/22/2010 22995 Removal Of Myringotomy Tube Completed 06/23/2010 71803 Tympanometry Completed 06/08/2010 67141 Endoscopic Nasal Cautery Completed 06/02/2010 81126 Nasal Endoscopy, Diagnostic Completed 05/28/2010 43033 Endoscopic Nasal Cautery Completed 02/18/2010 24463 Nasal Endoscopy, Diagnostic Completed 01/13/2010 09063 Nasal Endoscopy, Diagnostic Completed 01/05/2010 45467 Endoscopic Nasal Cautery Completed 12/21/2009 72256 Control Nasal Hemorrhage (Extensive Cautery/Packing) Any Completed Method 12/17/2009 71950 Nasal Endoscopy, Diagnostic Completed Encounters Type Date Location Provider Dx Diagnosis Office Visit 02/26/2019 [facility],After 11/27/07 Saud Cornell R04.0 Epistaxis 2:30p 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 Office Visit 02/12/2019 1:45p [facility],After 11/27/07 Saud Cornell R04.0 Epistaxis 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 Office Visit 02/11/2019 4:00p [facility],After 11/27/07 Nabil Simmons MD R04.0 Epistaxis 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 Office Visit 11/02/2018 10:30a [facility],After Saud Baez R09.81 Nasal congestion 11/27/07 MD Kraig Office Visit 06/29/2018 8:45a [facility],After Saud Baez R04.0 Epistaxis 11/27/07 MD Kraig H91.91 Unspecified hearing loss, right ear Office Visit 05/29/2018 8:30a [facility],After 11/27/07 Saud Cornell R04.0 Epistaxis Office Visit 05/08/2018 10:30a [facility],After 11/27/07 Saud Cornell R04.0 Epistaxis Office Visit 05/04/2018 11:45a [facility],After 11/27/07 Nabil Simmons MD R04.0 Epistaxis Office Visit 08/17/2017 1:30p [facility],After 11/27/07 Saud Cornell R04.0 Epistaxis R13.10 Dysphagia, unspecified Office Visit 02/09/2017 10:45a [facility],After 11/27/07 Saud Cornell R04.0 Epistaxis Office Visit 05/12/2016 11:30a [facility],After 11/27/07 Saud Cornell R04.0 Epistaxis H90.3 Sensorineural hearing loss, bilateral H92.01 Otalgia, right ear Office Visit 04/29/2016 [place],After Nabil Simmons R04.0 Epistaxis 11:45a 11/27/07 Office Visit 04/14/2016 [place],After Saud Baez R04.0 Epistaxis 10:15a 11/27/07 MD Kraig Office Visit 11/02/2015 [place],After Nabil Simmons R04.0 Epistaxis 10:45a 11/27/07 Office Visit 10/29/2015 [place],After Saud Baez 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 Office Visit 08/27/2014 [place],After Saud Baez 478.1-2 Perforation Of 2:15p 11/27/07 MD Kraig Nasal Septum Office Visit 12/05/2013 [place],After Saud Baez 478.1-2 Perforation Of 2:45p 11/27/07 MD Kraig Nasal Septum 784.7 Epistaxis Office Visit 10/17/2013 1:45p [place],After Saud Baez 478.19 Mucocele Of 11/27/07 MD Kraig Sinus/Perf Nasal Septum 478.1-2 Perforation Of Nasal Septum 784.7 Epistaxis 931 Foreign Body, Ear, External Or Auditory Canal Office Visit 02/15/2012 [place],After Saud Baez 478.1-2 Perforation Of 1:45p 11/27/07 MD Kraig Nasal Septum Office Visit 12/08/2011 [place],After [place], 461.0 Sinusitis, Acute 4:00p 11/27/07 Jessa MINGLE OPERATOR Maxillary 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, Chronic Ethmoidal Office Visit 09/15/2011 2:15p [place],After 11/27/07 Saud Cornell, 784.7 Epistaxis 478.1-2 Perforation Of Nasal Septum Office Visit 03/24/2011 2:00p [place],After 11/27/07 Saud Cornell, 784.7 Epistaxis 478.1-2 Perforation Of Nasal Septum 381.81 Dysfunction Of Eustachian Tube Office Visit 11/10/2010 3:45p [place],After 11/27/07 Saud Cornell, 784.7 Epistaxis 478.1-2 Perforation Of Nasal Septum 401.9 High Blood Pressure Or Hypertension/Unspecified Office Visit 10/06/2010 2:15p [place],After 11/27/07 Saud Cornell 784.7 Epistaxis 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 401.9 High Blood Pressure Or Hypertension/Unspecified Office 08/12/2010 [place],After Saud Baez 401.9 High Blood Pressure Or Visit 1:45p 11/27/07 MD Kraig Hypertension/Unspecified 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, 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, Sensorineural/Unspecified 478.1-2 Perforation Of Nasal Septum Office 07/22/2010 [place],After Saud Baez 401.9 High Blood Pressure Or Visit 11:30a 11/27/07 MD Kraig Hypertension/Unspecified 381.81 Dysfunction Of Eustachian Tube 478.1-2 Perforation Of Nasal Septum 931 Foreign Body, Ear, External Or Auditory Canal 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, 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, Sensorineural/Unspecified Office Visit 07/15/2010 2:15p [place],After 11/27/07 Saud Baez 381.19 Otitis Media MD [facility]ig Chronic Serous Other 381.81 Dysfunction Of Eustachian Tube 478.1-2 Perforation Of Nasal Septum 401.9 High Blood Pressure Or Hypertension/Unspecified Office Visit 06/28/2010 2:00p [place],After 11/27/07 Ramin 381.19 Otitis Media Jessa MINGLE OPERATOR Chronic Serous Other 381.81 Dysfunction Of Eustachian Tube 401.9 High Blood Pressure Or Hypertension/Unspecified Office 06/23/2010 [place],After Saud Baez 401.9 High Blood Pressure Or Visit 3:45p 11/27/07 MD Kraig Hypertension/Unspecified 784.7 Epistaxis 478.1-2 Perforation Of Nasal Septum 381.19 Otitis Media Chronic Serous Other Office Visit 05/28/2010 10:30a [place],After 11/27/07 Jessa Faustin 784.7 Epistaxis MINGLE OPERATOR 401.9 High Blood Pressure Or Hypertension/Unspecified Office Visit 01/08/2010 2:30p [place],After 11/27/07 Jessa Faustin 784.7 Epistaxis MINGLE OPERATOR 478.1-2 Perforation Of Nasal Septum 784.0 Headache Or Facial Pain 401.9 High Blood Pressure Or Hypertension/Unspecified Office Visit 12/25/2009 11:45a [place],After 11/27/07 Saud Cornell, 784.7 Epistaxis MD 401.9 High Blood Pressure Or Hypertension/Unspecified Office Visit 11/05/2008 2:15p [place],After 11/27/07 Saud Cornell, 784.7 Epistaxis MD 478.1-2 Perforation Of Nasal Septum 401.9 High Blood Pressure Or Hypertension/Unspecified Plan of Treatment Future Appointment(s):05/02/2019 1:30 pm - Saud Cornell MD at [facility], After 11/27/07
--- OUTSIDE RECORDS SUMMARY | 2019-03-04 22:13 | XMS REPORT | Continuity of Care Document ---
:1935 External Reference #:[id number] Author Name Saud Cornell MD Address [address] [place] [address] Care Team Providers Name Role Phone Grecia Anderson M.D. Primary Care Physician Unavailable Payers Date Identification Numbers Payment Provider Subscriber Effective: 2018 Policy Number: [id number] Medicare-[facility] [employer] SRVS Sirisha Dotson PayID: [id number] [address] [place] [address] Policy Number: [id number] [employer] Sirisha Dotson Group Number: [id number] [id number] Group Name: [id number] [place] [address] PayID: [id number] Advance Directives Description No Information Available Problems [...] / Active Tablets 10mg Unknown Oxalate 0000 Prednisone / Active Tablets 8mg 2 tabs 5 Unknown 0000 days a week Metoprolol / Active Tablets ER 25mg 1/2 by Unknown Succinate ER 0000 24HR mouth every day Calcium 600+D / Active Tablets 600-800 1 [...] 1 by mouth Unknown 0000 every day Atrovent 10/29/ Hx Solution 0.06% 1units 2 sprays in [facility] 2014 - each Nestor Cornell, 11/01/ delores VELASCO 2017 twice a day as needed Mupirocin 03/26/ Hx Ointment 2% 15gm apply to [facility] 2014 - both Nestor Cornell, 06/03/ delores VELASCO 2014 twice a day Bactroban 10/17/ Hx Ointment 2% 15gm apply to [facility] 2012 - both Nestor Cornell, 07/08/ nostrils 2014 twice daily for 1 month Augmentin 12/08/ Hx Tablets 875-125mg 28tabs 1 po bid 461.0 Yvon Vizcarra 2011 - Strominge 02/14/ Boom rodriguez 2011 Biaxin XL 12/08/ Hx Tablets ER 500mg 28tabs 2 po 461.0 Yvon Vizcarra 2011 - 24HR [id number] Strominge 02/14/ for 14 days Boom rodriguez [...] Tablets 250mg 1Pack take as 473.2 Saud Krishna 2009 - directed Nestor Cornell, 03/24/ 2010 [...] 2009 Clonazepam /00/ Hx Unknown 2009 Zocor 00/00/ Hx Unknown 2009 Lexapro /00/ Hx Unknown 2009 Tylenol /00/ Hx Unknown 2009 Clonazepam 00/00/ Hx Unknown 2014 Atenolol 00/00/ Hx Unknown 2013 Simvastatin /00/ Hx Unknown 2014 Singulair /00/ Hx Unknown - 2011 Citalopram /00/ Hx Unknown Hydrobromide - 2011 Cozaar /00/ Hx Unknown 2011 Acidophilus [...] a day Prieto VELASCO 2017 Poly-Iron 150 00/ Hx Capsules 150mg As directed Areli, 0000 - Prieto VELASCO 2016 Aspirin Adult 00/00/ Hx Tablets DR 81mg 1 by mouth Areli, Low Dose 0000 - daily Prieto VELASCO 2016 Metoprolol 00/ Hx Tablets 25mg 1/2 tab by Areli Tartrate 0000 - mouth daily Prieto VELASCO 2016 Pantoprazole /00/ Hx Tablets DR 40mg 1 by mouth Areli, Sodium 0000 - every day Prieto VELASCO 2016 Premarin /00/ Hx Tablets 0.3mg 1 by mouth Areli, [...] 2018 a day for 7 days Clopidogrel / Hx Tablets 75mg Unknown Bisulfate 0000 - 2017 Immunizations CPT Code Status Date Vaccine Lot # 75087 Given 08/11/2014 Influenza Virus Vaccine, 3 Years Of Age And Above, Intramuscular 73197 Given Unknown Pneumococcal Vaccine 2Yrs Or Older 30429 Ordered 09/03/2015 Influenza Virus Vaccine, 3 Years Of Age And Above, Intramuscular Vital Signs Date Vital Result Comment 01/03/2019 1:34pm Weight 125.00 lb Weight 56.700 [...] Result H/L Range Note Comp Metabolic 05/29/2018 [facility] Sodium 141 mmol/ L N 135-145 Panel c/o Department [place] [address] [phone] Potassium 4.9 mmol/L N 3.5-5.0 Chloride 103 [...] Egfr 39.7 >60 1 Laboratory test 05/29/2018 [facility] Magnesium 1.9 mg /dL N 1.9-2.7 finding c/o Department [place] [address] [phone] C Reactive Protein 23.57 mg/L High <8.01 Ferritin 32.2 ng/mL N 11-307 Vitamin B12 > 1450 pg/mL High 180-914 2 CBC Auto Diff 05/29/2018 [facility] White Blood 7.3 10 ^3/uL N 3.5-10.8 c/o Department [place] [address] [phone] Red Blood Count 3.57 10^6/uL Low 4.00-5.40 [...] Blood Cells % 0 Laboratory test 05/29/2018 [facility] Erythrocyte Sed 47 mm/Hr High 0-40 finding c/o Department [place] [address] [phone] Laboratory test 12/08/2011 [facility] Culture -------- - 3 finding c/o Department of Laboratories Sensitivity/Gram ------- [place] [address] St <SEE [phone] NOTE> CBC Auto Diff 10/18/2011 [facility] White Blood 7.8 CUMM 4.8-10.8 c/o Department [place] [address] [phone] Red Cell Count 3.84 CUMM Low 4.2-5.4 [...] Basophils 0 0-0.2 Comp Metabolic Panel 10/18/2011 [facility] Sodium 141 mmol/L 135-145 c/o Department [place] [address] [phone] Potassium 4.2 mmol/L 3.5-5.0 Chloride 106 mmol/L [...] 43.5 > 60 6 Lipid Profile 10/18/2011 [facility] Triglyceride 99 mg /dL 40-200 (Trig/Chol/HDL) c/o Department [place] [address] [phone] Cholesterol 180 mg/dL Less Than 200 7 High Density Lipoprotein 77 mg/dL High 40-60 8 Cholesterol/HDL Ratio 2.34 AVERAGE 1-4.44 Low Density Lipoprotein 83 mg/dL Less Than 100 9 Laboratory test 10/18/2011 [facility] CPK (Creatine 72 U/L 0-170 finding c/o Department of Laboratories Kinase) [place], [place] [id number] [phone] CBC No Diff 10/05/2011 [facility] White Blood 9.2 CUMM 4.8-10.8 c/o Department [place] [address] [phone] Red Cell Count 3.90 CUMM Low 4.2-5.4 Hemoglobin 13.5 g/dL 12.0-16.0 Hematocrit 39 % 35-47 Mean Corpuscular Volume 100 um3 High 79-97 Mean Corpuscular Hemoglob 35 pg High 27-31 Mean Corpuscular HGB Cone 34 g/dL 32-36 Redcell Distribution WDTH 14 % 10.5-15 Platelet Count 168 CUMM 150-450 Mean Platelet Volume 11.6 um3 High 7.4-10.4 Basic Metabolic 10/05/2011 [facility] Sodium 139 mmol/ L 135-145 Panel c/o Department [place] [address] [phone] Potassium 4.1 mmol/L 3.5-5.0 Chloride 104 mmol/L 101-111 Co2 (Carbon Dioxide) 27.0 mmol/L 22-32 Anion Gap 8.0 mmol/L 2-11 10 Glucose 110 mg/dL High 70-100 BUN 23 mg/dL 6-24 Creatinine 1.4 mg/dL 0.50-1.40 One Over Creatinine 0.71 BUN/Creatinine Ratio 16.4 8-20 Calcium 9.7 mg/dL 8.1-9.9 eGFR Non- 36.7 > 60 eGFR 47.1 > 60 11 Basic Metabolic 04/26/2011 [facility] Sodium 137 mmol/ L 135-145 Panel c/o Department [place] [address] [phone] Potassium 5.5 mmol/L High 3.5-5.0 Chloride 104 mmol/L 101-111 Co2 (Carbon Dioxide) 26.0 mmol/L 22-32 Anion Gap 7.0 mmol/L 2-11 12 Glucose 96 mg/dL 70-100 BUN 38 mg/dL High 6-24 Creatinine 1.80 mg/dL High 0.50-1.40 One Over Creatinine 0.50 BUN/Creatinine Ratio 21.1 High 8-20 Calcium 9.5 mg/dL 8.1-9.9 eGFR Non- 27.5 > 60 eGFR 35.4 > 60 13 CBC Auto Diff 04/26/2011 [facility] White Blood 10.8 CUMM 4.8-10.8 c/o Department [place] [address] [phone] Red Cell Count 3.69 CUMM Low 4.2-5.4 Hemoglobin 12.3 g/dL 12.0-16.0 Hematocrit 37 % 35-47 Mean Corpuscular Volume 101 um3 High 79-97 Mean Corpuscular Hemoglob 33 pg High 27-31 Mean Corpuscular HGB Cone 33 g/dL 32-36 Redcell Distribution WDTH 14 % 10.5-15 Platelet Count 181 CUMM 150-450 Mean Platelet Volume 11.4 um3 High 7.4-10.4 14 Manual Differential 04/26/2011 [facility] Polysegmented 74 % 38-83 c/o Department [place] [address] [phone] Lymphocyte 18 % Low 25-47 Monocyte 5 % 0-13 Eosinophil 2 % 0-6 Basophil 1 % 0-2 Absolute Neutrophil Count 7.9 Macrocytosis SLIGHT Neutrophil Cytoplasmic 03/24/2011 [facility] C-Anca NEGATIVE AB c/o Department [place] [address] [phone] P-Anca Final RPT NEGATIVE Anca Reviewed By (SEE NOTE) Negative 15 Laboratory test 03/24/2011 [facility] Erythrocyte Sed 34 MM/HR 0-40 finding c/o Department of Laboratories Rate [place], [place] [phone] [phone] CBC With Manual 03/24/2011 [facility] White Blood 8.4 CUMM 4.8-10.8 Diff c/o Department [place] [address] [phone] Red Cell Count 3.76 CUMM Low 4.2-5.4 [...] Count 5.8 Anisocytosis SLIGHT Laboratory test 03/24/2011 [facility] C Reactive < 0.5 mg/dL Less Than finding c/o Department of Laboratories Protein 0.5 [place], [place] [id number] [phone] Comp Metabolic 03/24/2011 [facility] Sodium 142 mmol/ L 135-145 Panel c/o Department [place] [address] [phone] Potassium 5.2 mmol/L High 3.5-5.0 Chloride 109 [...] > 60 18 Comp Metabolic Panel 02/08/2011 [facility] Sodium 136 mmol/L 135-145 c/o Department [place] [address] [phone] Potassium 5.6 mmol/L High 3.5-5.0 Chloride 106 [...] 40.5 > 60 21 Laboratory test 02/08/2011 [facility] C Reactive 0.6 mg/dL High Less Than finding c/o Department of Laboratories Protein 0.5 [place], [place] 29[address]365 [phone] Urinalysis 02/08/2011 [facility] Ua Color YELLOW Yellow W/Microscopic c/o [place] [address] [phone] Appearance-Urine CLEAR Clear Specific Custer-Ur 1.016 1.010-1.030 Esterase-Urine 1+ Abnormal Negative Nitrite NEGATIVE Negative Wlhvhurzrpel-Dg-ESA NEGATIVE Negative Protein-Urine NEGATIVE Negative PH-Urine 5.5 5-9 Blood-Urine NEGATIVE Negative Ketones-Urine NEGATIVE Negative Bilirubin-Ur NEGATIVE Negative Glucose-Urine NEGATIVE Negative WBC-Urine 0-2 0-5 RBC-Urine NONE SEEN 0-2 Mucus Urine SMALL None Epith Cells-Ur FEW None Bacteria-Urine TRACE None CBC No Diff 02/08/2011 [facility] White Blood 10.1 CUMM 4.8-10.8 c/o Department [place] [address] [phone] Red Cell Count 3.93 CUMM Low 4.2-5.4 Hemoglobin 12.8 g/dL 12.0-16.0 Hematocrit 39 % 35-47 Mean Corpuscular Volume 98 um3 High 79-97 Mean Corpuscular Hemoglob 33 pg High 27-31 Mean Corpuscular HGB Cone 33 g/dL 32-36 Redcell Distribution WDTH 14 % 10.5-15 Platelet Count 160 CUMM 150-450 Mean Platelet Volume 11.1 um3 High 7.4-10.4 Laboratory test 02/08/2011 [facility] Erythrocyte Sed 23 MM/HR 0-40 finding c/o Department [place] [address] [phone] Urine Culture & 02/08/2011 [facility] Urine Culture NG 22 Sensitivi c/o Department [place] [address] [phone] Neutrophil 02/08/2011 [facility] C-Anca NEGATIVE Cytoplasmic AB c/o [place] [address] [phone] P-Anca Final RPT NEGATIVE Anca Reviewed By (SEE NOTE) Negative 23 Vitamin D, 25 12/24/2010 [facility] 25-Hydroxy Vitamin <4.0 ng/mL () Hydroxy c/o Department of Laboratories D2 [place] [address] [phone] 25-Hydroxy Vitamin D3 50 ng/mL () 25-Hydroxy Vitamin D Total 50 ng/mL () 24 Laboratory test 12/24/2010 [facility] Ferritin 113 NG/ ML 11.0-307 finding c/o Department [place] [address] [phone] Lipid Profile 12/24/2010 [facility] Triglyceride 200 mg/dL 40-200 (Trig/Chol/HDL) c/o [place] [address] [phone] Cholesterol 210 mg/dL High Less Than 200 25 High Density Lipoprotein 61 mg/dL High 40-60 26 Cholesterol/HDL Ratio 3.44 AVERAGE 1-4.44 Low Density Lipoprotein 109 mg/dL High Less Than 100 27 Comp Metabolic Panel 12/24/2010 [facility] Sodium 138 mmol/L 135-145 c/o Department [place] [address] [phone] Potassium 5.1 mmol/L High 3.5-5.0 Chloride 105 [...] 47.3 > 60 30 CBC With 12/24/2010 [facility] White Blood 6.1 CUMM 4.8-10.8 Electronic Diff c/o Department [place] [address] [phone] Red Cell Count 4.02 CUMM Low 4.2-5.4 [...] Abs Basophils 0 0-0.2 CBC With 11/30/2010 [facility] White Blood 7.4 CUMM 4.8-10.8 Electronic Diff c/o Department [place] [address] [phone] Red Cell Count 3.89 CUMM Low 4.2-5.4 [...] Basophils 0 0-0.2 Comp Metabolic Panel 11/30/2010 [facility] Sodium 137 mmol/L 135-145 c/o Department [place] [address] [phone] Potassium 5.0 mmol/L 3.5-5.0 Chloride 104 mmol/L [...] 43.7 > 60 33 Laboratory test 11/30/2010 [facility] C Reactive 0.7 mg/dL High Less Than finding c/o Department of Laboratories Protein 0.5 [place] [address] [phone] Neutrophil 11/30/2010 [facility] C-Anca POSITIVE Cytoplasmic AB c/o Department [place] [address] [phone] C-Anca 1:40 1:40 Anca Reviewed By (SEE NOTE) Negative 34 Surgical 10/19/2010 [facility] Surgical -- 35 Pathology c/o Department of Laboratories Pathology <SEE NOTE> [place] [address] [phone] CBC With 10/12/2010 [facility] White Blood 6.9 CUMM 4.8- 36 Electronic c/o Department of Laboratories Count 10.8 Diff [place], [place] 2743771 [phone] Red Cell Count 3.94 CUMM Low 4.2-5.4 [...] Abs Basophils 0 0-0.2 Basic Metabolic 10/12/2010 [facility] Sodium 141 mmol/ L 135-145 Panel c/o Department [place] [address] [phone] Potassium 4.9 mmol/L 3.5-5.0 Chloride 110 mmol/L 101-111 Co2 (Carbon Dioxide) 25.0 mmol/L 22-32 Anion Gap 6.0 mmol/L 2-11 37 Glucose 104 mg/dL High 70-100 38 BUN 29 mg/dL High 6-24 Creatinine 1.50 mg/dL High 0.50-1.40 One Over Creatinine 0.60 BUN/Creatinine Ratio 19.3 8-20 Calcium 9.7 mg/dL 8.1-9.9 eGFR Non- 36.1 > 60 eGFR 43.7 > 60 39 Laboratory test 09/15/2010 [facility] Anti Dna NEGATIVE Negative finding c/o Department of Laboratories ([place] [address] Stranded Dna) [phone] Neutrophil 09/15/2010 [facility] C-Anca POSITIVE Cytoplasmic AB c/o [place] [address] [phone] C-Anca 1:80 1:80 Anca Reviewed By (SEE NOTE) Negative 40 Ssa/SSB 09/15/2010 [facility] Ssa NEGATIVE Negative c/o Department of Laboratories [place], [place] [phone] SSB NEGATIVE Negative Honey 09/15/2010 [facility] Antinuclear POSITIVE Abnormal Negative (Antinuclear c/o Department of Laboratories AB Antibodies) [place] [address] [phone] Honey Pattern HOMOGENEOUS Abnormal Antinuclear AB 1:80 Abnormal Reviewed By (SEE NOTE) 41 Laboratory test 09/15/2010 [facility] Hla B27 Negative () 42 finding c/o Department [place] [address] [phone] Total Protein 24HR 09/15/2010 [facility] Total Protein 13 mg/dL Urine c/o Department of [place] [address] [phone] Urine Total Protein/24HR 130 MG/24HR High 50-100 Creatinine 09/15/2010 [facility] Creatinine Random 83.74 mg/dL Clearance c/o Department [place] [address] [phone] Creat Clearance 42 mL/min Low 80-125 Hours Of Collection 24 HR 24- Urine Volume Measurement 1000 ML Laboratory test 09/15/2010 [facility] Erythrocyte Sed 26 MM/HR 0-40 finding c/o Department [place] [address] [phone] CBC With 09/15/2010 [facility] White Blood 6.5 CUMM 4.8-10.8 Electronic Diff c/o Department [place] [address] [phone] Red Cell Count 3.76 CUMM Low 4.2-5.4 [...] Abs Basophils 0 0-0.2 Laboratory test 09/15/2010 [facility] C Reactive 0.5 mg/dL Less Than finding c/o Department of Laboratories Protein 0.5 [place] [address] [phone] CBC With 09/07/2010 [facility] White Blood 7.2 CUMM 4.8-10.8 Electronic Diff c/o Department [place] [address] [phone] Red Cell Count 3.96 CUMM Low 4.2-5.4 [...] Basophils 0 0-0.2 Comp Metabolic Panel 09/07/2010 [facility] Sodium 137 mmol/L 135-145 c/o Department [place] [address] [phone] Potassium 5.3 mmol/L High 3.5-5.0 Chloride 105 [...] 37.8 > 60 46 Lipid Profile 09/07/2010 [facility] Triglyceride 176 mg/dL 40-200 (Trig/Chol/HDL) c/o Department [place] [address] [phone] Cholesterol 209 mg/dL High Less Than 200 47 High Density Lipoprotein 66 mg/dL High 40-60 48 Cholesterol/HDL Ratio 3.17 AVERAGE 1-4.44 Low Density Lipoprotein 108 mg/dL High Less Than 100 49 Laboratory test 09/07/2010 [facility] TSH 1.53 MIU/ML 0.34-5.60 finding c/o Department [place] [address] [phone] Hemoglobin A1c 5.7 % Less Than 6.0 50 Laboratory test 08/31/2010 [facility] Erythrocyte Sed 36 MM/HR 0-40 [place] [address] Rate [phone] C Reactive Protein 0.9 mg/dL High Less Than 0.5 Urinalysis 08/31/2010 [facility] Ua Color YELLOW Yellow W/[place] [address] [phone] Appearance-Urine CLEAR Clear Specific Custer-Ur 1.017 1.010-1.030 Esterase-Urine 1+ Abnormal Negative Nitrite NEGATIVE Negative Pdpicshfbxbh-Ar-HIT NEGATIVE Negative Protein-Urine NEGATIVE Negative PH-Urine 5.5 5-9 Blood-Urine NEGATIVE Negative Ketones-Urine NEGATIVE Negative Bilirubin-Ur NEGATIVE Negative Glucose-Urine NEGATIVE Negative WBC-Urine 1-3 0-5 RBC-Urine NONE SEEN 0-2 Epith Cells-Ur FEW None Urine Culture & 08/31/2010 [facility] Urine Culture NG [address] [place] [address] Sensitivi [phone] Neutrophil 08/12/2010 [facility] C-Anca POSITIVE Cytoplasmic AB c/o Department [place] [address] [phone] C-Anca 1:20 1:20 P-Anca Final RPT NEGATIVE Anca Reviewed By (SEE NOTE) Negative 52 Laboratory test 07/15/2010 [facility] Angiotensin 6 U/L Abnormal 8-53 53 [place] [address] Converting [phone] Enzyme 1 Because ethnic data is not [...] Deficient Range <145 3 RUN DATE: 12/12/11 [facility] NMI LIVE PAGE 1 RUN TIME: 923 Specimen Inquiry RUN USER: INTERFACE Name: SIRISHA DOTSON Status: REG REF Re12/08/11 Age/Sex: 76/F Unit#: [id number] [facility] SPEC #: [id number] SAMANTHA: 12/08/11 STATUS: COMP REQ #: [id number] RECD: 12/09/[address]: Jessa Faustin NP SOURCE: MISC ENTR: 12/09/[address]: SPDESC: SINUS,LMAX ORDERED: CULT SENS/GS QUERIES: MEDENT REQUISITION # [id number] ACT WKST: B 12/12/11 #1 Procedure Result Verified Site > CULTURE SENSITIVITY Final 12/12/11- 0924 ML Organism 1 PSEUDOMONAS AERUGINOSA Organism 2 SADIA SPECIES QUANTITY FEW "NOT ALBICANS" 1. PSEUDOMONAS AERUGINOSA RX M.I.C. ------ --------- AMIKACIN S <=2 LEVOFLOXACIN S 0.5 CIPROFLOXACIN S <=0.25 GENTAMICIN S <=1 CEFTAZIDIME S 4 IMIPENEM S <=1 *These antibiotics are not available in the [facility] Formulary. Contact the Microbiology Department for any additional antibiotic reporting. > GRAM STAIN SMEAR Final 12/09/11- 1547 ML POLYS NONE SMEAR: MODERATE COLUMNAR EPITH FEW YEAST LIKE CELLS - [facility] Permit #[id number] [facility] [employer] [place] [address] DEPARTMENT OF PATHOLOGY, [facility] [employer] [place] [address] [facility] Permit #[id number] Mian Luna M.D. Director David Pak M.D. Central Office Inspector 4 Anion gap measurement may be of [...] normal population are 25-80 Test Performed by: [facility] Dpt of Lab Med and Pathology [address] [place] [address] Channel Process Supervisor: Tang Ochoa III, M.D. 25 CHOLESTEROL INTERPRETATION: [...] has been shown to interfere with the Jendrassik-Schellsburg method for measuring total bilirubin. Samples from [...] has been shown to interfere with the Jendrassik-Schell[place] method for measuring total bilirubin. Samples from [...] LUNA MD 35 ---- RUN DATE: 10/20/10 [facility] NMI LIVE PAGE 1 RUN TIME: 1732 Specimen Inquiry RUN USER: INTERFACE -- Name: SIRISHA DOTSON#: [id number] Status: [facility] Re10/19/10 Age/Sex: 75/F Unit#: [id number] Location: [facility] : 36 -- Specimen: [id number] Spec Date: 10/19/[address]: aSud Cornell MD Spec Type: SURGICAL P Received: 10/19/10-9433 Copies to: SPECIMEN BIOPSY NASAL SEPTUM HISTORY [...] 10/20/10 1732 -- -- DEPARTMENT OF PATHOLOGY, [address] [place] [address] [facility] Permit #[id number] Mian Luna M.D. Director David Pak M.D. Needlemaker Dir tejinder -- 36 SURGERY DATE IS 10-19-10 37 Anion gap measurement may be of limited value in the presence of any alkalosis, especially in a combined acid base disorder. . 38 Note change in reference range as of 07/17/08. The change was based on recommendations from the [place] [employer]. 39 Because ethnic data is [...] 42 Method: Flow Cytometry Test Performed by: [facility] Dpt of Lab Med and Pathology [address] [place] [address] Channel Process Supervisor: Tang Ochoa III, M.D. 43 Anion gap measurement may be of limited value in the presence of any alkalosis, especially in a combined acid base disorder. . 44 Note change in reference range as of 07/17/08. The change was based on recommendations from the [place] [employer]. 45 A metabolite of Naproxen, O-desmethylnaproxen, has been shown to interfere with the Jendrarletik-Schellsburg method for measuring total bilirubin. Samples from [...] IN SELECTIVE PATIENTS <6.0%. PLEASE REFER TO [employer] DIABETIC CARE GUIDELINES FOR FURTHER INFORMATION. 51 FINAL: NO GROWTH DAY 2 (<1,000 CFU/mL) 52 REVIEWED BY MIAN LUNA MD 53 The use of angiotensin converting enzyme (KWASI)-inhibiting antihypertensive drugs will cause decreased KWASI values. Test Performed by: [facility] Dpt of Lab Med and Pathology [address] [place] [address] Channel Process Supervisor: Tang Ochoa III, M.D. Procedures Date Code Description Status 02/11/2019 83278 Control Nasal Hemorrhage (Extensive Cautery/Packing) Any Completed Method 01/03/2019 50686 Nasal Endoscopy, Diagnostic Completed 12/13/2018 91307 Nasal Endoscopy, Diagnostic Completed 06/29/2018 15564 Tympanometry Completed 06/29/2018 85076 Comprehensive Audiogram Completed 05/25/2018 80496 Control Nasal Hemorrhage (Extensive Cautery/Packing) Any Completed Method 05/09/2018 35011 Endoscopic Nasal Cautery Completed 08/17/2017 87682 Fiberoptic Laryngoscopy Completed 11/30/2016 14659 Nasal Endoscopy, Diagnostic Completed 06/24/2016 33698 Nasal Endoscopy, Diagnostic Completed 05/12/2016 74972 Comprehensive Audiogram Completed 05/12/2016 73403 Tympanometry Completed 04/26/2016 54480 Endoscopic Nasal Cautery Completed 04/07/2016 35796 Nasal Endoscopy, Diagnostic Completed 11/02/2015 39220 Contol Nasal Hemorrhage, Anterior, Simple Completed 09/03/2015 71839 Fiberoptic Laryngoscopy Completed 06/03/2015 91246 Nasal Endoscopy, Diagnostic Completed 10/17/2013 82174 Nasal Endoscopy, Diagnostic Completed 04/05/2012 32075 Nasal Endoscopy, Diagnostic Completed 10/11/2011 75221 Insertion, Nasal Septal Button Completed 10/11/2011 26854 Control Nasal Hemorrhage (Extensive Cautery/Packing) Any Completed Method 09/15/2011 07236 Nasal Endoscopy, Diagnostic Completed 10/19/2010 63823 Endoscopic Nasal Cautery Completed 10/06/2010 19429 Nasal Endoscopy, Diagnostic Completed 08/12/2010 67258 Tympanometry Completed 08/12/2010 06409 Comprehensive Audiogram Completed 07/22/2010 41966 Tympanometry Completed 07/22/2010 88967 Comprehensive Audiogram Completed 07/22/2010 25760 Removal Of Myringotomy Tube Completed 06/23/2010 38076 Tympanometry Completed 06/08/2010 39822 Endoscopic Nasal Cautery Completed 06/02/2010 85635 Nasal Endoscopy, Diagnostic Completed 05/28/2010 80921 Endoscopic Nasal Cautery Completed 02/18/2010 46620 Nasal Endoscopy, Diagnostic Completed 01/13/2010 22970 Nasal Endoscopy, Diagnostic Completed 01/05/2010 61827 Endoscopic Nasal Cautery Completed 12/21/2009 31854 Control Nasal Hemorrhage (Extensive Cautery/Packing) Any Completed Method 12/17/2009 78391 Nasal Endoscopy, Diagnostic Completed Encounters Type Date Location Provider Dx Diagnosis Office Visit 02/12/2019 [place],After 11/27/07 Saud Cornell, R04.0 Epistaxis 1:45p 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 Office Visit 02/11/2019 4:00p [place],After 11/27/07 Nabil Simmons MD R04.0 Epistaxis 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 Office Visit 11/02/2018 10:30a [place],After Saud Baez R09.81 Nasal congestion 11/27/07 MD Kraig Office Visit 06/29/2018 8:45a [place],After Saud Baez R04.0 Epistaxis 11/27/07 MD Kraig H91.91 Unspecified hearing loss, right ear Office Visit 05/29/2018 8:30a [place],After 11/27/07 Saud Cornell, R04.0 Epistaxis Office Visit 05/08/2018 10:30a [place],After 11/27/07 Saud Cornell, R04.0 Epistaxis Office Visit 05/04/2018 11:45a [place],After 11/27/07 Nabil Simmons MD R04.0 Epistaxis Office Visit 08/17/2017 1:30p [place],After 11/27/07 Saud Cornell, R04.0 Epistaxis R13.10 Dysphagia, unspecified Office Visit 02/09/2017 10:45a [place],After 11/27/07 Saud Cornell, R04.0 Epistaxis MD Office Visit 05/12/2016 11:30a [place],After 11/27/07 Saud Cornell, R04.0 Epistaxis H90.3 Sensorineural hearing loss, bilateral H92.01 Otalgia, right ear Office Visit 04/29/2016 [place],After Nabil Simmons R04.0 Epistaxis 11:45a 11/27/07 Office Visit 04/14/2016 [place],After Saud Baez R04.0 Epistaxis 10:15a 11/27/07 MD Kraig Office Visit 11/02/2015 [place],After Nabil Simmons R04.0 Epistaxis 10:45a 11/27/07 Office Visit 10/29/2015 [place],After Saud Baez 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 Office Visit 08/27/2014 [place],After Saud Baez 478.1-2 Perforation Of 2:15p 11/27/07 MD Kraig Nasal Septum Office Visit 12/05/2013 [place],After Saud Baez 478.1-2 Perforation Of 2:45p 11/27/07 MD Kraig Nasal Septum 784.7 Epistaxis Office Visit 10/17/2013 1:45p [place],After Saud Baez 478.19 Mucocele Of 11/27/07 MD Kraig Sinus/Perf Nasal Septum 478.1-2 Perforation Of Nasal Septum 784.7 Epistaxis 931 Foreign Body, Ear, External Or Auditory Canal Office Visit 02/15/2012 [place],After Saud Anderson8.1-2 Perforation Of 1:45p 11/27/07 MD Kraig Nasal Septum Office Visit 12/08/2011 [place],After Ramin 461.0 Sinusitis, Acute 4:00p 11/27/07 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 Maxillary 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, Chronic Ethmoidal Office Visit 09/15/2011 2:15p [place],After 11/27/07 Saud Cornell 784.7 Epistaxis 478.1-2 Perforation Of Nasal Septum Office Visit 03/24/2011 2:00p [place],After 11/27/07 Saud Cornell, 784.7 Epistaxis 478.1-2 Perforation Of Nasal Septum 381.81 Dysfunction Of Eustachian Tube Office Visit 11/10/2010 3:45p [place],After 11/27/07 Saud Cornell 784.7 Epistaxis 478.1-2 Perforation Of Nasal Septum 401.9 High Blood Pressure Or Hypertension/Unspecified Office Visit 10/06/2010 2:15p [place],After 11/27/07 Saud Cornell 784.7 Epistaxis 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 401.9 High Blood Pressure Or Hypertension/Unspecified Office 08/12/2010 [place],After Saud Baez 401.9 High Blood Pressure Or Visit 1:45p 11/27/07 MD Kraig Hypertension/Unspecified 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, 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, Sensorineural/Unspecified 478.1-2 Perforation Of Nasal Septum Office 07/22/2010 [place],After Saud Baez 401.9 High Blood Pressure Or Visit 11:30a 11/27/07 MD Kraig Hypertension/Unspecified 381.81 Dysfunction Of Eustachian Tube 478.1-2 Perforation Of Nasal Septum 931 Foreign Body, Ear, External Or Auditory Canal 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, 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, Sensorineural/Unspecified Office Visit 07/15/2010 2:15p [place],After 11/27/07 Saud Baez 381.19 Otitis Media MD Kra[place] Chronic Serous Other 381.81 Dysfunction Of Eustachian Tube 478.1-2 Perforation Of Nasal Septum 401.9 High Blood Pressure Or Hypertension/Unspecified Office Visit 06/28/2010 2:00p [place],After 11/27/07 Ramin 381.19 Otitis Media 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 Chronic Serous Other 381.81 Dysfunction Of Eustachian Tube 401.9 High Blood Pressure Or Hypertension/Unspecified Office 06/23/2010 [place],After Saud Baez 401.9 High Blood Pressure Or Visit 3:45p 11/27/07 MD Kraig Hypertension/Unspecified 784.7 Epistaxis 478.1-2 Perforation Of Nasal Septum 381.19 Otitis Media Chronic Serous Other Office Visit 05/28/2010 10:30a [place],After 11/27/07 Jessa Faustin 784.7 Epistaxis 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 401.9 High Blood Pressure Or Hypertension/Unspecified Office Visit 01/08/2010 2:30p [place],After 11/27/07 Jessa Faustin 784.7 Epistaxis 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 478.1-2 Perforation Of Nasal Septum 784.0 Headache Or Facial Pain 401.9 High Blood Pressure Or Hypertension/Unspecified Office Visit 12/25/2009 11:45a [place],After 11/27/07 Saud Cornell 784.7 Epistaxis MD 401.9 High Blood Pressure Or Hypertension/Unspecified Office Visit 11/05/2008 2:15p [place],After 11/27/07 Saud Cornell 784.7 Epistaxis 478.1-2 Perforation Of Nasal Septum 401.9 High Blood Pressure Or Hypertension/Unspecified Plan of Treatment Future Appointment(s):02/26/2019 2:30 pm - Saud Cornell MD at [place], After 11/27/802 - Saud Cornell, MDR04.0 ItzhdnafvL95.0 Acquired deformity of nose
--- OUTSIDE RECORDS SUMMARY | 2019-03-04 22:14 | XMS REPORT | Continuity of Care Document ---
:1935 External Reference #:[id number] Author Name Nabil Simmons MD Address [address] [place] [address] Care Team Providers Name Role Phone Grecia Anderson M.D. Primary Care Physician Unavailable Payers Date Identification Numbers Payment Provider Subscriber Effective: 2018 Policy Number: [id number] Medicare-[facility] Govn SRVS Sirisha Dotson PayID: [id number] 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 Family History [...] Hx Solution 0.06% 1units 2 sprays in [facility] 2014 - each Nestor Cornell, 11/01/ delores VELASCO 2017 twice a day as needed Mupirocin 03/26/ Hx Ointment 2% 15gm apply to [facility] 2014 - both Nestor Cornell 06/03/ delores VELASCO 2014 twice a day Bactroban 10/17/ Hx Ointment 2% 15gm apply to [facility] 2012 - both Nestor Cornell 06/03/ nostrils 2014 twice daily for 1 month Augmentin 12/08/ Hx Tablets 875-125mg 28tabs 1 po bid 461.0 Yvon Vizcarra 2011 - Strominge 02/14/ Boom rodriguez 2011 Biaxin XL 12/08/ Hx Tablets ER 500mg 28tabs 2 po 461.0 Yvon Vizcarra 2012 - 24HR [id number] Strominge 02/14/ for 14 days Boom rodriguez [...] Enalapril /00/ Hx Unknown Maleate 2009 Singulair // Hx Unknown 2009 Clonazepam /00/ Hx Unknown 2009 Zocor /00/ Hx Unknown 2009 Lexapro /00/ Hx Unknown 2009 Tylenol /00/ Hx Unknown 2009 Clonazepam 00/00/ Hx Unknown 2014 Atenolol 00/00/ Hx Unknown 2013 Simvastatin /00/ Hx Unknown 2014 Singulair 00/00/ Hx Unknown - 2011 Citalopram /00/ Hx Unknown Hydrobromide 2011 Cozaar /00/ Hx Unknown 2011 Acidophilus /00/ Hx Unknown 2014 Tylenol /00/ Hx Unknown - 2014 Budesonide /00/ Hx Unknown 0000 - Micronized 2011 Amlodipine / Hx Tablets 5mg Unknown 2014 Sertraline HCL /00/ Hx Unknown 2012 Hydrocodone /00/ Hx Unknown Bitartrate 2014 Escitalopram / Hx Unknown Oxalate 2014 Pantoprazole / Hx Unknown Sodium 2013 Loperamide HCL 00/ Hx Unknown 2013 Oxybutynin / Hx Unknown Chloride ER 2013 Bactroban / Hx Ointment 2% apply Unknown 0000 - intranasal 08/17/ twice a day 2016 Hydrocodone 00/00/ Hx Tablets 5-300mg 1-2 by Areli Bitartrate/Kwasi 0000 - mouth every Prieto VELASCO taminophen as needed 2014 Clopidogrel 0000/ Hx Tablets 75mg 1 by mouth Areli, Bisulfate 0000 - every day Prieto VELASCO 2016 Potassium /00/ Hx Capsules 10Meq 1 by mouth Areli, [...] CPT Code Status Date Vaccine Lot # 10745 Given 08/11/2014 Influenza Virus Vaccine, 3 Years Of Age And Above, Intramuscular 77875 Given Unknown Pneumococcal Vaccine 2Yrs Or Older [address] Ordered 09/03/2015 Influenza Virus Vaccine, 3 Years [...] Result H/L Range Note Comp Metabolic 05/29/2018 [facility] Sodium 141 mmol/ L N 135-145 Panel c/o Department [place] [address] [phone] Potassium 4.9 mmol/L N 3.5-5.0 Chloride 103 [...] Egfr 39.7 >60 1 Laboratory test 05/29/2018 [facility] Magnesium 1.9 mg /dL N 1.9-2.7 finding c/o Department [place] [address] [phone] C Reactive Protein 23.57 mg/L High <8.01 Ferritin 32.2 ng/mL N 11-307 Vitamin B12 > 1450 pg/mL High 180-914 2 CBC Auto Diff 05/29/2018 [facility] White Blood 7.3 10 ^3/uL N 3.5-10.8 c/o Department [place] [address] [phone] Red Blood Count 3.57 10^6/uL Low 4.00-5.40 [...] Blood Cells % 0 Laboratory test 05/29/2018 [facility] Erythrocyte Sed 47 mm/Hr High 0-40 finding c/o Department of [place] [address] [phone] Laboratory test 12/08/2011 [facility] Culture -------- - 3 finding c/o Department of Laboratories Sensitivity/Gram ------- [place] [address] St <SEE [phone] NOTE> CBC Auto Diff 10/18/2011 [facility] White Blood 7.8 CUMM 4.8-10.8 c/o Department of [place] [address] [phone] Red Cell Count 3.84 CUMM Low 4.2-5.4 [...] Basophils 0 0-0.2 Comp Metabolic Panel 10/18/2011 [facility] Sodium 141 mmol/L 135-145 c/o Department of Laboratories [place] [id number] [phone] Potassium 4.2 mmol/L 3.5-5.0 Chloride 106 mmol/L [...] 43.5 > 60 6 Lipid Profile 10/18/2011 [facility] Triglyceride 99 mg /dL 40-200 (Trig/Chol/HDL) c/o Department [place] [address] [phone] Cholesterol 180 mg/dL Less Than 200 7 High Density Lipoprotein 77 mg/dL High 40-60 8 Cholesterol/HDL Ratio 2.34 AVERAGE 1-4.44 Low Density Lipoprotein 83 mg/dL Less Than 100 9 Laboratory test 10/18/2011 [facility] CPK (Creatine 72 U/L 0-170 finding c/o Department of Laboratories Kinase) [place], [place] [id number] [phone] CBC No Diff 10/05/2011 [facility] White Blood 9.2 CUMM 4.8-10.8 c/o Department [place] [address] [phone] Red Cell Count 3.90 CUMM Low 4.2-5.4 Hemoglobin 13.5 g/dL 12.0-16.0 Hematocrit 39 % 35-47 Mean Corpuscular Volume 100 um3 High 79-97 Mean Corpuscular Hemoglob 35 pg High 27-31 Mean Corpuscular HGB Cone 34 g/dL 32-36 Redcell Distribution WDTH 14 % 10.5-15 Platelet Count 168 CUMM 150-450 Mean Platelet Volume 11.6 um3 High 7.4-10.4 Basic Metabolic 10/05/2011 [facility] Sodium 139 mmol/ L 135-145 Panel c/o Department of Laboratories [place], [place] [id number] [phone] Potassium 4.1 mmol/L 3.5-5.0 Chloride 104 mmol/L 101-111 Co2 (Carbon Dioxide) 27.0 mmol/L 22-32 Anion Gap 8.0 mmol/L 2-11 10 Glucose 110 mg/dL High 70-100 BUN 23 mg/dL 6-24 Creatinine 1.4 mg/dL 0.50-1.40 One Over Creatinine 0.71 BUN/Creatinine Ratio 16.4 8-20 Calcium 9.7 mg/dL 8.1-9.9 eGFR Non- 36.7 > 60 eGFR 47.1 > 60 11 Basic Metabolic 04/26/2011 [facility] Sodium 137 mmol/ L 135-145 Panel c/o Department [place] [address] [phone] Potassium 5.5 mmol/L High 3.5-5.0 Chloride 104 mmol/L 101-111 Co2 (Carbon Dioxide) 26.0 mmol/L 22-32 Anion Gap 7.0 mmol/L 2-11 12 Glucose 96 mg/dL 70-100 BUN 38 mg/dL High 6-24 Creatinine 1.80 mg/dL High 0.50-1.40 One Over Creatinine 0.50 BUN/Creatinine Ratio 21.1 High 8-20 Calcium 9.5 mg/dL 8.1-9.9 eGFR Non- 27.5 > 60 eGFR 35.4 > 60 13 CBC Auto Diff 04/26/2011 [facility] White Blood 10.8 CUMM 4.8-10.8 c/o Department [place] [address] [phone] Red Cell Count 3.69 CUMM Low 4.2-5.4 Hemoglobin 12.3 g/dL 12.0-16.0 Hematocrit 37 % 35-47 Mean Corpuscular Volume 101 um3 High 79-97 Mean Corpuscular Hemoglob 33 pg High 27-31 Mean Corpuscular HGB Cone 33 g/dL 32-36 Redcell Distribution WDTH 14 % 10.5-15 Platelet Count 181 CUMM 150-450 Mean Platelet Volume 11.4 um3 High 7.4-10.4 14 Manual Differential 04/26/2011 [facility] Polysegmented 74 % 38-83 c/o Department [place] [address] [phone] Lymphocyte 18 % Low 25-47 Monocyte 5 % 0-13 Eosinophil 2 % 0-6 Basophil 1 % 0-2 Absolute Neutrophil Count 7.9 Macrocytosis SLIGHT Neutrophil Cytoplasmic 03/24/2011 [facility] C-Anca NEGATIVE AB c/o Department of Laboratories [place], [place] [id number] [phone] P-Anca Final RPT NEGATIVE Anca Reviewed By (SEE NOTE) Negative 15 Laboratory test 03/24/2011 [facility] Erythrocyte Sed 34 MM/HR 0-40 finding c/o Department [place] [address] [phone] CBC With Manual 03/24/2011 [facility] White Blood 8.4 CUMM 4.8-10.8 Diff c/o Department [place] [address] [phone] Red Cell Count 3.76 CUMM Low 4.2-5.4 [...] Count 5.8 Anisocytosis SLIGHT Laboratory test 03/24/2011 [facility] C Reactive < 0.5 mg/dL Less Than finding c/o Department of Laboratories Protein 0.5 [place], [place] [phone] Comp Metabolic 03/24/2011 [facility] Sodium 142 mmol/ L 135-145 Panel c/o Department of Laboratories [place], [place] [id number] [phone] Potassium 5.2 mmol/L High 3.5-5.0 Chloride 109 [...] > 60 18 Comp Metabolic Panel 02/08/2011 [facility] Sodium 136 mmol/L 135-145 c/o Department [place] [address] [phone] Potassium 5.6 mmol/L High 3.5-5.0 Chloride 106 [...] 40.5 > 60 21 Laboratory test 02/08/2011 [facility] C Reactive 0.6 mg/dL High Less Than finding c/o Department of Laboratories Protein 0.5 [place], [place] [id number] [phone] Urinalysis 02/08/2011 [facility] Ua Color YELLOW Yellow W/Microscopic c/o Department [place] [address] [phone] Appearance-Urine CLEAR Clear Specific [place]-Ur 1.016 1.010-1.030 Esterase-Urine 1+ Abnormal Negative Nitrite NEGATIVE Negative [id number] NEGATIVE Negative Protein-Urine NEGATIVE Negative PH-Urine 5.5 5-9 Blood-Urine NEGATIVE Negative Ketones-Urine NEGATIVE Negative Bilirubin-Ur NEGATIVE Negative Glucose-Urine NEGATIVE Negative WBC-Urine 0-2 0-5 RBC-Urine NONE SEEN 0-2 Mucus Urine SMALL None Epith Cells-Ur FEW None Bacteria-Urine TRACE None CBC No Diff 02/08/2011 [facility] White Blood 10.1 CUMM 4.8-10.8 c/o Department [place] [address] [phone] Red Cell Count 3.93 CUMM Low 4.2-5.4 Hemoglobin 12.8 g/dL 12.0-16.0 Hematocrit 39 % 35-47 Mean Corpuscular Volume 98 um3 High 79-97 Mean Corpuscular Hemoglob 33 pg High 27-31 Mean Corpuscular HGB Cone 33 g/dL 32-36 Redcell Distribution WDTH 14 % 10.5-15 Platelet Count 160 CUMM 150-450 Mean Platelet Volume 11.1 um3 High 7.4-10.4 Laboratory test 02/08/2011 [facility] Erythrocyte Sed 23 MM/HR 0-40 finding c/o Department [place] [address] [phone] Urine Culture & 02/08/2011 [facility] Urine Culture NG 22 Sensitivi c/o Department [place] [address] [phone] Neutrophil 02/08/2011 [facility] C-Anca NEGATIVE Cytoplasmic AB c/o Department [place] [address] [phone] P-Anca Final RPT NEGATIVE Anca Reviewed By (SEE NOTE) Negative 23 Vitamin D, 25 12/24/2010 [facility] 25-Hydroxy Vitamin <4.0 ng/mL () Hydroxy c/o Department of Laboratories D2 [place] [address] [phone] 25-Hydroxy Vitamin D3 50 ng/mL () 25-Hydroxy Vitamin D Total 50 ng/mL () 24 Laboratory test 12/24/2010 [facility] Ferritin 113 NG/ ML 11.0-307 finding c/o Department [place] [address] [phone] Lipid Profile 12/24/2010 [facility] Triglyceride 200 mg/dL 40-200 (Trig/Chol/HDL) c/o [place] [address] [phone] Cholesterol 210 mg/dL High Less Than 200 25 High Density Lipoprotein 61 mg/dL High 40-60 26 Cholesterol/HDL Ratio 3.44 AVERAGE 1-4.44 Low Density Lipoprotein 109 mg/dL High Less Than 100 27 Comp Metabolic Panel 12/24/2010 [facility] Sodium 138 mmol/L 135-145 c/o Department [place] [address] [phone] Potassium 5.1 mmol/L High 3.5-5.0 Chloride 105 [...] 47.3 > 60 30 CBC With 12/24/2010 [facility] White Blood 6.1 CUMM 4.8-10.8 Electronic Diff c/o Department [place] [address] [phone] Red Cell Count 4.02 CUMM Low 4.2-5.4 [...] Abs Basophils 0 0-0.2 CBC With 11/30/2010 [facility] White Blood 7.4 CUMM 4.8-10.8 Electronic Diff c/o Department of Laboratories Count [place], [place] [address]307 [phone] Red Cell Count 3.89 CUMM Low 4.2-5.4 [...] Basophils 0 0-0.2 Comp Metabolic Panel 11/30/2010 [facility] Sodium 137 mmol/L 135-145 c/o [place] [address] [phone] Potassium 5.0 mmol/L 3.5-5.0 Chloride 104 mmol/L [...] 43.7 > 60 33 Laboratory test 11/30/2010 [facility] C Reactive 0.7 mg/dL High Less Than finding c/o Department of Laboratories Protein 0.5 [place] [address] [phone] Neutrophil 11/30/2010 [facility] C-Anca POSITIVE Cytoplasmic AB c/o Department [place] [address] [phone] C-Anca 1:40 1:40 Anca Reviewed By (SEE NOTE) Negative 34 Surgical 10/19/2010 [facility] Surgical -- 35 Pathology c/o Department of Laboratories Pathology <SEE NOTE> [place] [address] [phone] CBC With 10/12/2010 [facility] White Blood 6.9 CUMM 4.8- 36 Electronic c/o Department of Laboratories Count 10.8 Diff [place], [place] [address]2638 [phone] Red Cell Count 3.94 CUMM Low 4.2-5.4 [...] Abs Basophils 0 0-0.2 Basic Metabolic 10/12/2010 [facility] Sodium 141 mmol/ L 135-145 Panel c/o Department [place] [address] [phone] Potassium 4.9 mmol/L 3.5-5.0 Chloride 110 mmol/L 101-111 Co2 (Carbon Dioxide) 25.0 mmol/L 22-32 Anion Gap 6.0 mmol/L 2-11 37 Glucose 104 mg/dL High 70-100 38 BUN 29 mg/dL High 6-24 Creatinine 1.50 mg/dL High 0.50-1.40 One Over Creatinine 0.60 BUN/Creatinine Ratio 19.3 8-20 Calcium 9.7 mg/dL 8.1-9.9 eGFR Non- 36.1 > 60 eGFR 43.7 > 60 39 Laboratory test 09/15/2010 [facility] Anti Dna NEGATIVE Negative finding c/o Department of Laboratories ([place] [address] Stranded Dna) [phone] Neutrophil 09/15/2010 [facility] C-Anca POSITIVE Cytoplasmic AB c/o Department [place] [address] [phone] C-Anca 1:80 1:80 Anca Reviewed By (SEE NOTE) Negative 40 Ssa/SSB 09/15/2010 [facility] Ssa NEGATIVE Negative c/o Department of Laboratories [place], [place] [id number] [phone] SSB NEGATIVE Negative Honey 09/15/2010 [facility] Antinuclear POSITIVE Abnormal Negative (Antinuclear c/o Department of Laboratories AB Antibodies) [place] [address] [phone] Honey Pattern HOMOGENEOUS Abnormal Antinuclear AB 1:80 Abnormal Reviewed By (SEE NOTE) 41 Laboratory test 09/15/2010 [facility] Hla B27 Negative () 42 finding c/o Department [place] [address] [phone] Total Protein 24HR 09/15/2010 [facility] Total Protein 13 mg/dL Urine c/o Department of [place] [address] [phone] Urine Total Protein/24HR 130 MG/24HR High 50-100 Creatinine 09/15/2010 [facility] Creatinine Random 83.74 mg/dL Clearance c/o Department [place] [address] [phone] Creat Clearance 42 mL/min Low 80-125 Hours Of Collection 24 HR 24- Urine Volume Measurement 1000 ML Laboratory test 09/15/2010 [facility] Erythrocyte Sed 26 MM/HR 0-40 finding c/o Department [place] [address] [phone] CBC With 09/15/2010 [facility] White Blood 6.5 CUMM 4.8-10.8 Electronic Diff c/o Department [place] [address] [phone] Red Cell Count 3.76 CUMM Low 4.2-5.4 [...] Abs Basophils 0 0-0.2 Laboratory test 09/15/2010 [facility] C Reactive 0.5 mg/dL Less Than finding c/o Department of Laboratories Protein 0.5 [place] [address] [phone] CBC With 09/07/2010 [facility] White Blood 7.2 CUMM 4.8-10.8 Electronic Diff c/o Department [place] [address] [phone] Red Cell Count 3.96 CUMM Low 4.2-5.4 [...] Basophils 0 0-0.2 Comp Metabolic Panel 09/07/2010 [facility] Sodium 137 mmol/L 135-145 c/o Department [place] [address] [phone] Potassium 5.3 mmol/L High 3.5-5.0 Chloride 105 [...] 37.8 > 60 46 Lipid Profile 09/07/2010 [facility] Triglyceride 176 mg/dL 40-200 (Trig/Chol/HDL) c/o Department of Laboratories [place], [place] [id number] [phone] Cholesterol 209 mg/dL High Less Than 200 47 High Density Lipoprotein 66 mg/dL High 40-60 48 Cholesterol/HDL Ratio 3.17 AVERAGE 1-4.44 Low Density Lipoprotein 108 mg/dL High Less Than 100 49 Laboratory test 09/07/2010 [facility] TSH 1.53 MIU/ML 0.34-5.60 finding c/o Department of Laboratories [place], [place] [id number] [phone] Hemoglobin A1c 5.7 % Less Than 6.0 50 Laboratory test 08/31/2010 [facility] Erythrocyte Sed 36 MM/HR 0-40 [place] [address] Rate [phone] C Reactive Protein 0.9 mg/dL High Less Than 0.5 Urinalysis 08/31/2010 [facility] Ua Color YELLOW Yellow W/[place] [address] [phone] Appearance-Urine CLEAR Clear Specific [place]-Ur 1.017 1.010-1.030 Esterase-Urine 1+ Abnormal Negative Nitrite NEGATIVE Negative Xojrjotpcnjf-[id number]-UAK NEGATIVE Negative Protein-Urine NEGATIVE Negative PH-Urine 5.5 5-9 Blood-Urine NEGATIVE Negative Ketones-Urine NEGATIVE Negative Bilirubin-Ur NEGATIVE Negative Glucose-Urine NEGATIVE Negative WBC-Urine 1-3 0-5 RBC-Urine NONE SEEN 0-2 Epith Cells-Ur FEW None Urine Culture & 08/31/2010 [facility] Urine Culture NG [address] [place] [address] Sensitivi [phone] Neutrophil 08/12/2010 [facility] C-Anca POSITIVE Cytoplasmic AB c/o Department [place] [address] [phone] C-Anca 1:20 1:20 P-Anca Final RPT NEGATIVE Anca Reviewed By (SEE NOTE) Negative 52 Laboratory test 07/15/2010 [facility] Angiotensin 6 U/L Abnormal 8-53 53 [place] [address] Converting [phone] Enzyme 1 Because ethnic data is not [...] Deficient Range <145 3 RUN DATE: 12/12/11 [facility] NMI LIVE PAGE 1 RUN TIME: 923 Specimen Inquiry RUN USER: INTERFACE Name: SIRISHA DOTSON Status: REG REF Re12/08/11 Age/Sex: 76/F Unit#: [id number] Location: [facility] : 37 SPEC #: [id number] SAMANTHA: 12/08/11 STATUS: COMP REQ #: [id number] RECD: 12/09/[address]: Jessa Faustin NP SOURCE: MISC ENTR: 12/09/[address]: SPDESC: SINUS,LMAX ORDERED: CULT SENS/GS QUERIES: MEDENT REQUISITION # [id number] ACT WKST: B 12/12/11 #1 Procedure Result Verified Site > CULTURE SENSITIVITY Final 12/12/11- 0924 ML Organism 1 PSEUDOMONAS AERUGINOSA Organism 2 SADIA SPECIES QUANTITY FEW "NOT ALBICANS" 1. PSEUDOMONAS AERUGINOSA RX M.I.C. ------ --------- AMIKACIN S <=2 LEVOFLOXACIN S 0.5 CIPROFLOXACIN S <=0.25 GENTAMICIN S <=1 CEFTAZIDIME S 4 IMIPENEM S <=1 *These antibiotics are not available in the [facility] Formulary. Contact the Microbiology Department for any additional antibiotic reporting. > GRAM STAIN SMEAR Final 12/09/11- 1547 ML POLYS NONE SMEAR: MODERATE COLUMNAR EPITH FEW YEAST LIKE CELLS - [facility] Permit #[id number] [facility] [place] [address] DEPARTMENT OF PATHOLOGY, [address] [place] [address] [facility] Permit #[id number] Mian Luna M.D. Director David Pak M.D. Cutter Operator 4 Anion gap measurement may be of limited value in the presence of any alkalosis, especially in a combined acid base disorder. . 5 A metabolite of Naproxen, O-desmethylnaproxen, has been shown to interfere with the Jendrassik-Zena method for measuring total bilirubin. Samples from [...] has been shown to interfere with the Jendrassik-Zena method for measuring total bilirubin. Samples from [...] normal population are 25-80 Test Performed by: [facility] Dpt of Lab Med and Pathology [address] [place] [address] Ground Host/Hostess: Tang Ochoa III, M.D. 25 CHOLESTEROL INTERPRETATION: [...] has been shown to interfere with the Jendrassik-Zena method for measuring total bilirubin. Samples from [...] LUNA MD 35 ---- RUN DATE: 10/20/10 [facility] NMI LIVE PAGE 1 RUN TIME: 1732 Specimen Inquiry RUN USER: INTERFACE -- Name: SIRISHA DOTSON#: [id number] Status: [facility] Re10/19/10 Age/Sex: 75/F Unit#: [id number] Location: [facility] : 37 -- Specimen: [id number] Spec Date: 10/19/[address] [facility] [address]: Saud Cornell MD Spec Type: SURGICAL P Received: 10/19/10-3863 Copies to: SPECIMEN BIOPSY NASAL SEPTUM HISTORY [...] 10/20/10 1732 -- -- DEPARTMENT OF PATHOLOGY, [address] [place] [address] [facility] Permit #[id number] Mian Luna M.D. Director David Pak M.D. Tool Rental Technician Dir tejinder -- 37 SURGERY DATE IS 10-19-10 37 Anion gap measurement may be of limited value in the presence of any alkalosis, especially in a combined acid base disorder. . 38 Note change in reference range as of 07/17/08. The change was based on recommendations from the [place] [employer]. 39 Because ethnic data is [...] 42 Method: Flow Cytometry Test Performed by: [facility] Dpt of Lab Med and Pathology [address] [place] [address] Ground Host/Hostess: Tang Ochoa III, M.D. 43 Anion gap measurement may be of limited value in the presence of any alkalosis, especially in a combined acid base disorder. . 44 Note change in reference range as of 07/17/08. The change was based on recommendations from the [place] [employer]. 45 A metabolite of Naproxen, O-desmethylnaproxen, has been shown to interfere with the Jendrarletik-Tari method for measuring total bilirubin. Samples from [...] IN SELECTIVE PATIENTS <6.0%. PLEASE REFER TO CITIZEN OF [place] [employer] DIABETIC CARE GUIDELINES FOR FURTHER INFORMATION. 51 FINAL: NO GROWTH DAY 2 (<1,000 CFU/mL) 52 REVIEWED BY MIAN LUNA MD 53 The use of angiotensin converting enzyme (KWASI)-inhibiting antihypertensive drugs will cause decreased KWASI values. Test Performed by: [facility] Dpt of Lab Med and Pathology [address] [place] [address] Ground Host/Hostess: Tang Ochoa III, M.D. Procedures Date Code Description Status 02/11/2019 81630 Control Nasal Hemorrhage (Extensive Cautery/Packing) Any Completed Method 01/03/2019 12639 Nasal Endoscopy, Diagnostic Completed 12/13/2018 18925 Nasal Endoscopy, Diagnostic Completed 06/29/2018 76713 Tympanometry Completed 06/29/2018 07113 Comprehensive Audiogram Completed 05/25/2018 66491 Control Nasal Hemorrhage (Extensive Cautery/Packing) Any Completed Method 05/09/2018 78764 Endoscopic Nasal Cautery Completed 08/17/2017 63628 Fiberoptic Laryngoscopy Completed 11/30/2016 31187 Nasal Endoscopy, Diagnostic Completed 06/24/2016 34082 Nasal Endoscopy, Diagnostic Completed 05/12/2016 98043 Comprehensive Audiogram Completed 05/12/2016 17492 Tympanometry Completed 04/26/2016 94101 Endoscopic Nasal Cautery Completed 04/07/2016 60983 Nasal Endoscopy, Diagnostic Completed 11/02/2015 39135 Contol Nasal Hemorrhage, Anterior, Simple Completed 09/03/2015 03205 Fiberoptic Laryngoscopy Completed 06/03/2015 86013 Nasal Endoscopy, Diagnostic Completed 10/17/2013 25176 Nasal Endoscopy, Diagnostic Completed 04/05/2012 88376 Nasal Endoscopy, Diagnostic Completed 10/11/2011 15622 Insertion, Nasal Septal Button Completed 10/11/2011 51598 Control Nasal Hemorrhage (Extensive Cautery/Packing) Any Completed Method 09/15/2011 07731 Nasal Endoscopy, Diagnostic Completed 10/19/2010 67736 Endoscopic Nasal Cautery Completed 10/06/2010 30801 Nasal Endoscopy, Diagnostic Completed 08/12/2010 98524 Tympanometry Completed 08/12/2010 34956 Comprehensive Audiogram Completed 07/22/2010 32473 Tympanometry Completed 07/22/2010 78467 Comprehensive Audiogram Completed 07/22/2010 88902 Removal Of Myringotomy Tube Completed 06/23/2010 20922 Tympanometry Completed 06/08/2010 92502 Endoscopic Nasal Cautery Completed 06/02/2010 47460 Nasal Endoscopy, Diagnostic Completed 05/28/2010 24241 Endoscopic Nasal Cautery Completed 02/18/2010 41843 Nasal Endoscopy, Diagnostic Completed 01/13/2010 90958 Nasal Endoscopy, Diagnostic Completed 01/05/2010 33039 Endoscopic Nasal Cautery Completed 12/21/2009 01838 Control Nasal Hemorrhage (Extensive Cautery/Packing) Any Completed Method 12/17/2009 77781 Nasal Endoscopy, Diagnostic Completed Encounters Type Date Location Provider Dx Diagnosis Office Visit 02/11/2019 4:00p Ricardo,After 11/27/07 Nabil Simmons MD R04.0 Epistaxis 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 Office Visit 11/02/2018 10:30a [place],After Saud Baez R09.81 Nasal congestion 11/27/07 MD Kraig Office Visit 06/29/2018 8:45a [place],After Saud Baez R04.0 Epistaxis 11/27/07 MD Kraig H91.91 Unspecified hearing loss, right ear Office Visit 05/29/2018 8:30a [place],After 11/27/07 Saud Cornell, R04.0 Epistaxis Office Visit 05/08/2018 10:30a [place],After 11/27/07 Saud Cornell, R04.0 Epistaxis Office Visit 05/04/2018 11:45a [place],After 11/27/07 Nabil Simmons MD R04.0 Epistaxis Office Visit 08/17/2017 1:30p [place],After 11/27/07 Saud Cornell, R04.0 Epistaxis R13.10 Dysphagia, unspecified Office Visit 02/09/2017 10:45a [place],After 11/27/07 Saud Cornell, R04.0 Epistaxis Office Visit 05/12/2016 11:30a [place],After 11/27/07 Saud Cornell, R04.0 Epistaxis H90.3 Sensorineural hearing loss, bilateral H92.01 Otalgia, right ear Office Visit 04/29/2016 [place]After Nabil Simmons R04.0 Epistaxis 11:45a 11/27/07 Office Visit 04/14/2016 [place]After Saud Baez R04.0 Epistaxis 10:15a 11/27/07 MD Kraig Office Visit 11/02/2015 [place]After Nabil Simmons R04.0 Epistaxis 10:45a 11/27/07 Office Visit 10/29/2015 [place] Saud Baez 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 Office Visit 08/27/2014 [place],After Saud Baez 478.1-2 Perforation Of 2:15p 11/27/07 MD Kraig Nasal Septum Office Visit 12/05/2013 [place],After Saud Baez 478.1-2 Perforation Of 2:45p 11/27/07 MD Kraig Nasal Septum 784.7 Epistaxis Office Visit 10/17/2013 1:45p [place],After Saud Baez 478.19 Mucocele Of 11/27/07 MD Kraig Sinus/Perf Nasal Septum 478.1-2 Perforation Of Nasal Septum 784.7 Epistaxis 931 Foreign Body, Ear, External Or Auditory Canal Office Visit 02/15/2012 [place],After Saud Baez 478.1-2 Perforation Of 1:45p 11/27/07 MD Kraig Nasal Septum Office Visit 12/08/2011 [place],After Ulhien, 461.0 Sinusitis, Acute 4:00p 11/27/07 Jessa [place] [employer]ATER Maxillary 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, Chronic Ethmoidal Office Visit 09/15/2011 2:15p [place],After 11/27/07 Saud Cornell, 784.7 Epistaxis 478.1-2 Perforation Of Nasal Septum Office Visit 03/24/2011 2:00p [place],After 11/27/07 Saud Cornell, 784.7 Epistaxis 478.1-2 Perforation Of Nasal Septum 381.81 Dysfunction Of Eustachian Tube Office Visit 11/10/2010 3:45p [place],After 11/27/07 Saud Cornell, 784.7 Epistaxis 478.1-2 Perforation Of Nasal Septum 401.9 High Blood Pressure Or Hypertension/Unspecified Office Visit 10/06/2010 2:15p [place],After 11/27/07 Saud Cornell, 784.7 Epistaxis 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 401.9 High Blood Pressure Or Hypertension/Unspecified Office 08/12/2010 [place],After Saud Baez 401.9 High Blood Pressure Or Visit 1:45p 11/27/07 MD Kraig Hypertension/Unspecified 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1-2 Perforation Of Nasal Septum 401.9 High Blood Pressure Or Hypertension/Unspecified Office Visit 06/28/2010 2:00p [place],After 11/27/07 Danieldrich, 381.19 Otitis Media Jessa [employer] Chronic Serous Other 381.81 Dysfunction Of Eustachian Tube 401.9 High Blood Pressure Or Hypertension/Unspecified Office 06/23/2010 [place],After Saud Baez 401.9 High Blood Pressure Or Visit 3:45p 11/27/07 MD Kraig Hypertension/Unspecified 784.7 Epistaxis 478.1-2 Perforation Of Nasal Septum 381.19 Otitis Media Chronic Serous Other Office Visit 05/28/2010 10:30a [place],After 11/27/07 Siuirdre 784.7 Epistaxis [place] 401.9 High Blood Pressure Or Hypertension/Unspecified Office Visit 01/08/2010 2:30p [place],After 11/27/07 Siuirdre 784.7 Epistaxis [place] [employer] 478.1-2 Perforation Of Nasal Septum 784.0 Headache Or Facial Pain 401.9 High Blood Pressure Or Hypertension/Unspecified Office Visit 12/25/2009 11:45a [place],After 11/27/07 Saud Cornell, 784.7 Epistaxis 401.9 High Blood Pressure Or Hypertension/Unspecified Office Visit 11/05/2008 2:15p [place],After 11/27/07 Saud Cornell 784.7 Epistaxis 478.1-2 Perforation Of Nasal Septum 401.9 High Blood Pressure Or Hypertension/Unspecified Plan of Treatment Future Appointment(s):02/12/2019 1:45 pm - Saud Cornell MD at [place], After 11/27/802 - Nabil Simmons MDR04.0 EpistaxisComments:The patients nose was packed with febrile or packing because I was unable to control the bleeding with cautery. We discussed that this tamponades the bleeding and there may be some oozing. While the pack is in place . The patient has been instructed to leave the pack in place and will follow up forremoval. The patients nose was packed because I was unable to control the bleeding with cautery. . 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
[2019-03-04] MEDS ORDERED: Lidocaine 2% JELLY* 6 ML JELLY TOPICAL ONE (22:34)
[2019-03-04] MEDS ORDERED: hydrALAZINE IV* 20 MG/ML VIAL ONE (22:38)
[2019-03-04] MEDS ORDERED: hydrALAZINE IV* 20 MG/ML VIAL IV SLOW PU ONE (22:40)
[2019-03-04] MEDS ORDERED: Morphine INJ* 2 MG/ML 1 ML SYRINGE (TWO MG - NEW SYRINGE VERSION) IV ONE (22:40)
[2019-03-04] MEDS ORDERED: Ondansetron INJ* 2 MG/ML VIAL IV ONE (22:41)
--- NOTE | 2019-03-04 22:42 | ED ---
Throat Pain/Nasal Congestion - HPI Summary HPI Summary: Pt is an 83 y/o M presenting to the ED with a chief complaint of epistaxis lasting about 1 hour. She has an associated nausea and cough with red phlegm coming up. Her BP was elevated at triage, and is elevated upon initial evaluation. The pt is currently on Plavix, and uses Afrin for her hx of epistaxis. - History of Current Complaint Chief Complaint: EDEpistaxis Hx Obtained From: Patient Onset/Duration: Sudden Onset, Lasting Hours, Still Present Severity: Moderate Cough: Sputum Appears - red Related History: Other (Noted In Comments) - hx epistaxis - Allergies/Home Medications Allergies/Adverse Reactions: Allergies Allergy/AdvReac Type Severity Reaction Status Date / Time monosodium glutamate AdvReac Mild headache, Verified 03/04/19 22:02 jitters cephalexin AdvReac GI Upset Verified 03/04/19 22:02 ibuprofen AdvReac Nausea Verified 03/04/19 22:02 CHESTNUTS Allergy Severe LIPS SWELL Uncoded 03/04/19 22:02 AND ARE VERY PAINFUL METALS Allergy Unknown Rash Uncoded 03/04/19 22:02 SEASONAL Allergy STUFFY Uncoded 03/04/19 22:02 HAYFEVER/ENVIRONMENTAL NOSE, WATERY EYES PMH/Surg Hx/FS Hx/Imm Hx Previously Healthy: Yes Endocrine/Hematology History: Reports: Hx Anticoagulant Therapy, Hx Anemia - RECIEVED IRON INFUSIONS IN PAST Denies: Hx Diabetes, Hx Thyroid Disease Cardiovascular History: Reports: Hx Angina - RARELY USES NITRO, Hx Cardiomegaly , Hx Congestive Heart Failure, Hx Coronary Artery Disease - ON MED, Hx Hypercholesterolemia, Hx Hypotension - current, Hx Hypertension, Hx Myocardial Infarction - 2014, Hx Peripheral Vascular Disease, 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 godwin left carotid artery 2013 right carot Denies: Hx Deep Vein Thrombosis, Hx Pacemaker/ICD Respiratory History: Reports: Hx Asthma - POSSIBLY IN THE PAST, Hx Pneumonia Denies: Hx Chronic Obstructive Pulmonary Disease (COPD), Hx Lung Cancer GI History: Reports: Other GI Disorders - CHRONIC CONSTIPATION-TAKES LAXATIVE DAILY peg tube 03/12/18 Denies: Hx Gall Bladder Disease, Hx Gastroesophageal Reflux Disease, Hx Gastrointestinal Bleed, Hx Ulcer, Hx Urosepsis History: Reports: Hx Chronic Renal Failure Denies: Hx Kidney Stones, Hx Renal Disease, Other Problems/Disorders Musculoskeletal History: Reports: Hx Arthritis - HANDS & FEET Denies: Hx Rheumatoid Arthritis, Hx Osteoporosis Sensory History: Reports: Hx Cataracts - BILAT, Hx Contacts or Glasses Denies: Hx Hearing Aid Opthamlomology History: Reports: Hx Cataracts - BILAT, Hx Contacts or Glasses EENT History: Reports: Other - epistaxis Neurological History: Reports: Hx Headaches - TAKES TRAMADOL PRN, Hx Migraine - last episode 1 yr ago 2017, Hx Nerve Disease - see below, Other Neuro Impairments/Disorders - 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 type. Hx Chemotherapy: No Hx Radiation Therapy: No - Surgical History Surgery Procedure, Year, and Place: Hysterectomy, 1983, [facility] [place]. Choleycystectomy, 1993, [facility] [place]. nose surgery .DR CORNELL. BIL.Femoral bypass, 1996, [facility] [place]. Left carotid endardectomy 2013. Right first toe, first joint replacement, 2005, [facility] [place]. LIGATION OF ETHMOIDAL INTERNAL MAXILIARY ARTERIES 2007. MYLEOGRAM. LASER SURGERY FOR EPISTAXIS X 6 OVER PAST 10 YEARS. RIGHT CAROTID ENDARECTOMY 03/01/18 [facility]. PEG TUBE INSERTION 03/12/18 [facility]. NASAL EPISTAXIS [facility] [place] DR. CORNELL Hx Anesthesia Reactions: No - Immunization History Date of Tetanus Vaccine: up to date Date of Influenza Vaccine: up to date Infectious Disease History: No Infectious Disease History: Denies: Hx Clostridium Difficile, Hx Hepatitis, Hx Human Immunodeficiency Virus (HIV), Hx of Known/Suspected MRSA, Hx Shingles, Hx Tuberculosis, Hx Known/ Suspected VRE, Hx Known/Suspected VRSA, History Other Infectious Disease, Traveled Outside the [place] in Last 30 Days - Family History Known Family History: Positive: Hypertension Negative: Cardiac Disease - Social History Alcohol Use: Weekly Alcohol Amount: a glass of wine a few times a week Hx Substance Use: No Substance Use Type: Reports: None Hx Tobacco Use: Yes Smoking Status (MU): Former Smoker Type: Cigarettes Amount Used/How Often: 1 PPD Length of Time of Smoking/Using Tobacco: 47 YEARS Have You Smoked in the Last Year: No Review of Systems Positive: Epistaxis Positive: Cough Positive: Nausea All Other Systems Reviewed And Are Negative: Yes Physical Exam - Summary Physical Exam Summary: VITAL SIGNS: Reviewed. Blood pressure elevated. GENERAL: Patient is a well-developed and nourished male who is lying comfortable in the stretcher. Patient is not in any acute respiratory distress. HEAD AND FACE: No signs of trauma. No ecchymosis, hematomas or skull depressions. No sinus tenderness. Active bleeding from bilateral nostrils. EYES: PERRLA, EOMI x 2, No injected conjunctiva, no nystagmus. EARS: Hearing grossly intact. Ear canals and tympanic membranes are within normal limits. MOUTH: Large amount of blood in oropharynx. NECK: Supple, trachea is midline, no adenopathy, no JVD, no carotid bruit, no c- spine tenderness, neck with full ROM. CHEST: Symmetric, no tenderness at palpation LUNGS: Clear to auscultation bilaterally. No wheezing or crackles. CVS: Regular rate and rhythm, S1 and S2 present, no murmurs or gallops appreciated. ABDOMEN: Soft, non-tender. No signs of distention. No rebound no guarding, and no masses palpated. Bowel sounds are normal. EXTREMITIES: FROM in all major joints, no edema, no cyanosis or clubbing. NEURO: Alert and oriented x 3. No acute neurological deficits. Speech is normal and follows commands. SKIN: Dry and warm Triage Information Reviewed: Yes Vital Signs On Initial Exam: Initial Vitals Temp Pulse Resp BP Pulse Ox 97.8 F 90 18 219/124 97 03/04/19 22:00 03/04/19 22:00 03/04/19 22:00 03/04/19 22:00 03/04/19 22:00 Vital Signs Reviewed: Yes Procedures - Procedure Summary Procedure Summary: The pt was given local anesthesia of lidocaine 2% in bilateral nostrils. 4.5cm rhinorockets were inserted into her bilateral nostrils and inflated with air. There is good hemostasis. Diagnostics - Vital Signs Vital Signs Temp Pulse Resp BP Pulse Ox 03/04/19 22:00 97.8 F 90 18 219/124 97 - Laboratory Lab Statement: Any lab studies that have been ordered have been reviewed, and results considered in the medical decision making process. Re-Evaluation - Re-Evaluation 1st re-eval Re-Evaluation Time: 23:25 Change: Improved Comment: There is no further bleeding, and the pt has SaO2 at 96% on room air. She has Tramadol at home that she can take for the pain, and she sees Dr. Cornell of ENT for frequent epistaxis. She will be d/c'ed home with instructions to f/u with Dr. Cornell tomorrow. EENT Course/Dx - Course Course Of Treatment: Pt is an 83 y/o M presenting to the ED with a chief complaint of epistaxis lasting about 1 hour. She has an associated nausea and cough with red phlegm coming up. Her BP was elevated at triage, and is elevated upon initial evaluation. The pt was given local anesthesia of lidocaine 2% in bilateral nostrils. 4.5cm rhinorockets were inserted into her bilateral nostrils and inflated with air. There is good hemostasis. As of 2324, there is no further bleeding, and the pt has SaO2 at 96% on room air. She has Tramadol at home that she can take for the pain, and she sees Dr. Cornell of ENT for frequent epistaxis. She will be d/c'ed home with instructions to f/u with Dr. Cornell tomorrow. Her dx will be epistaxis. - Diagnoses Provider Diagnoses: Epistaxis Discharge - Sign-Out/Discharge Documenting (check all that apply): Patient Departure Patient Received Moderate/Deep Sedation with Procedure: No - Discharge Plan Condition: Stable Disposition: HOME Referrals: Grecia Anderson MD [Primary Care Provider] - Saud Cornell MD [Medical Doctor] - Additional Instructions: Please take the Tramadol you have at home as needed for pain. Follow up with Dr. Cornell tomorrow morning. Return to the ED with any new or worsening symptoms. - Attestation Statements Document Initiated by Scribe: Yes Documenting Scribe: Hanh Elaine Provider For Whom [employer] is Documenting (Include Credential): Juan Luis Barajas MD. Scribe Attestation: Hanh Barahona, scribed for Juan Luis Barajas MD. on 03/04/19 at 2325. Status of Scribe Document: Ready
[2019-03-04] MEDS ORDERED: Morphine 4 MG/ML VIAL (1 ml) 4 MG/ML VIAL IV ONE (23:02)
[2019-03-04] MEDS ORDERED: Amoxicillin/Clavulanate TAB* 875 MG PO ONE (23:03)
[2019-03-05 00:22] VITALS: BP 148/85
== END 2019-03-05 00:25 | disposition home or self-care (01) ==
LOC: ED 21:59
DX: R04.0 Epistaxis (principal); N18.9 Chronic kidney disease, unspecified; Z79.01 Long term (current) use of anticoagulants; Z87.891 Personal history of nicotine dependence
CPT/HCPCS: 30901; 87040; 96374; 96375; 96376; 99282; A9270-GY; J0360; J2270; J2405

== ENCOUNTER 2019-03-05 14:24 | Inpatient (IN) | payer MEDICARE, OTHER ==
[2019-03-05] MEDS ORDERED: Naloxone* 0.4 MG/ML 1 ML VIAL ONE (14:32)
--- NOTE | 2019-03-05 14:35 | ED ---
Complex/Multi-Sys Presentation - HPI Summary HPI Summary: LEVEL 5 CAVEAT: HPI LIMITED DUE TO PT CONDITION, UNRESPONSIVE An 83 y/o F brought in by ambulance from home presents to ED s/p fall onset Per EMS: when EMS arrived on scene, pt was semi-conscious and only mildly responsive to verbal stimuli, her speech was not making sense; glucose: 140, Sp O2: 53; R pupil is pinpoint; pt fell 2x this morning. [facility] for epistaxis. Pt received morphine last night in ED, and takes Tramadol at home. ED provider met EMS and pt immediately upon arrival in ED. - History Of Current Complaint Hx Obtained From: EMS Onset/Duration: Still Present Timing: Constant - Allergies/Home Medications Allergies/Adverse Reactions: Allergies Allergy/AdvReac Type Severity Reaction Status Date / Time monosodium glutamate AdvReac Mild headache, Verified 03/04/19 22:02 jitters cephalexin AdvReac GI Upset Verified 03/04/19 22:02 ibuprofen AdvReac Nausea Verified 03/04/19 22:02 CHESTNUTS Allergy Severe LIPS SWELL Uncoded 03/04/19 22:02 AND ARE VERY PAINFUL METALS Allergy Unknown Rash Uncoded 03/04/19 22:02 SEASONAL Allergy STUFFY Uncoded 03/04/19 22:02 HAYFEVER/ENVIRONMENTAL NOSE, WATERY EYES Home Medications: Home Medications Carvedilol [Coreg] 3.125 mg PO BID 03/05/19 [History Confirmed 03/05/19] Ferrous Sulfate TAB* 325 mg PO BID 03/05/19 [History Confirmed 03/05/19] PMH/Surg Hx/FS Hx/Imm Hx Previously Healthy: No Endocrine/Hematology History: Reports: Hx Anticoagulant Therapy, Hx Anemia - RECIEVED IRON INFUSIONS IN PAST Denies: Hx Diabetes, Hx Thyroid Disease Cardiovascular History: Reports: Hx Angina - RARELY USES NITRO, Hx Cardiomegaly , Hx Congestive Heart Failure, Hx Coronary Artery Disease - ON MED, Hx Hypercholesterolemia, Hx Hypotension - current, Hx Hypertension, Hx Myocardial Infarction - 2015, Hx Peripheral Vascular Disease, 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 godwin left carotid artery 2013 right carot Denies: Hx Deep Vein Thrombosis, Hx Pacemaker/ICD Respiratory History: Reports: Hx Asthma - POSSIBLY IN THE PAST, Hx Pneumonia Denies: Hx Chronic Obstructive Pulmonary Disease (COPD), Hx Lung Cancer GI History: Reports: Other GI Disorders - CHRONIC CONSTIPATION-TAKES LAXATIVE DAILY peg tube 03/12/18 Denies: Hx Gall Bladder Disease, Hx Gastroesophageal Reflux Disease, Hx Gastrointestinal Bleed, Hx Ulcer, Hx Urosepsis History: Reports: Hx Chronic Renal Failure Denies: Hx Kidney Stones, Hx Renal Disease, Other Problems/Disorders Musculoskeletal History: Reports: Hx Arthritis - HANDS & FEET Denies: Hx Rheumatoid Arthritis, Hx Osteoporosis Sensory History: Reports: Hx Cataracts - BILAT, Hx Contacts or Glasses Denies: Hx Hearing Aid Opthamlomology History: Reports: Hx Cataracts - BILAT, Hx Contacts or Glasses Neurological History: Reports: Hx Headaches - TAKES TRAMADOL PRN, Hx Migraine - last episode 1 yr ago 2016, Hx Nerve Disease - see below, Other Neuro Impairments/Disorders - 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 type. Hx Chemotherapy: No Hx Radiation Therapy: No - Surgical History Surgery Procedure, Year, and Place: Hysterectomy, [address] [facility]. Choleycystectomy, 1993, [facility]. nose surgery .DR CHIN. [facility].Femoral bypass, [address], [facility]. Left carotid endardectomy 2013. Right first toe, first joint replacement, 2005, [facility]. LIGATION OF ETHMOIDAL INTERNAL MAXILIARY ARTERIES 2007. MYLEOGRAM. LASER SURGERY FOR EPISTAXIS X 6 OVER PAST 10 YEARS. RIGHT CAROTID ENDARECTOMY 03/01/18 [facility]. PEG TUBE INSERTION 03/12/18 [facility]. NASAL EPISTAXIS [facility] DR. CHIN Anesthesia Reactions: No - Immunization History Date of Tetanus Vaccine: up to date Date of Influenza Vaccine: up to date Infectious Disease History: Denies: Hx Clostridium Difficile, Hx Hepatitis, Hx Human Immunodeficiency Virus (HIV), Hx of Known/Suspected MRSA, Hx Shingles, Hx Tuberculosis, Hx Known/ Suspected VRE, Hx Known/Suspected VRSA, History Other Infectious Disease - Family History Known Family History: Positive: Hypertension Negative: Cardiac Disease - Social History Occupation: Retired Lives: With Family Alcohol Use: Weekly Alcohol Amount: a glass of wine a few times a week Hx Substance Use: No Substance Use Type: Reports: None Hx Tobacco Use: Yes Smoking Status (MU): Former Smoker Type: Cigarettes Amount Used/How Often: 1 PPD Length of Time of Smoking/Using Tobacco: 47 YEARS Have You Smoked in the Last Year: No Review of Systems - ROS Summary Review of Systems Summary: LEVEL 5 CAVEAT: ROS LIMITED DUE TO PT CONDITION, UNRESPONSIVE Negative: Fever All Other Systems Reviewed And Are Negative: No Physical Exam - Summary Physical Exam Summary: Appearance: The patient is well-nourished in no acute distress and in no acute pain. Patient is stuporous at bedside. Skin: The skin is warm and dry and skin color reflects adequate perfusion. HEENT: The head is normocephalic and atraumatic. The pupils are equal at 2mm and reactive. The conjunctivae are clear and without drainage. Nares are patent and without drainage. Mouth reveals moist mucous membranes and the throat is without erythema and exudate. The external ears are intact. The ear canals are patent and without drainage. The tympanic membranes are intact. Neck: the neck is supple with full range of motion and non-tender. There are no carotid bruits. There is no neck vein distension. Respiratory: Chest is non-tender. Lungs are clear to auscultation and breath sounds are symmetrical and equal. Cardiovascular: Heart is regular rate and rhythm. There is no murmur or rub auscultated. There is no peripheral edema and pulses are symmetrical and equal. Abdomen: The abdomen is soft and non-tender. There are normal bowel sounds heard in all four quadrants and there is no organomegaly palpated. Musculoskeletal: There is no back tenderness noted. Extremities are non-tender with full range of motion. There is good capillary refill. There is no peripheral edema or calf tenderness elicited. Neurological: Patient is stuporous, she responds to voice, answers questions but trails off and falls back asleep. Follows commands. The patient has symmetrical motor strength in all four extremities. Cranial nerves are grossly intact. Deep tendon reflexes are symmetrical and equal in all four extremities. Psychiatric: The patient has an appropriate affect and does not exhibit any anxiety or depression. Triage Information Reviewed: Yes Vital Signs Reviewed: Yes Diagnostics - Laboratory Result Diagrams: 03/05/19 14:52 03/05/19 14:52 Lab Statement: Any lab studies that have been ordered have been reviewed, and results considered in the medical decision making process. - Radiology CXR Radiology Interpretation Completed By: Radiologist Summary of Radiographic Findings: IMPRESSION: HYPERINFLATION WITH MILD PULMONARY INTERSTITIAL EDEMA. ED provider has reviewed this report. - EKG 1440 Cardiac Rate: Tachycardia - 105 bpm EKG Rhythm: Sinus Tachycardia EKG Comparison: No Significant Change - from EKG on 02/06/19 aside from rate. Summary of EKG Findings: LVH Re-Evaluation - Re-Evaluation 1 Re-Evaluation Time: 14:51 Change: Improved Comment: Pt given small amount of Narcan, and patient woke up. 2 Re-Evaluation Time: 19:34 Change: Unchanged Comment: Pt denies CP and has not had CP today. She is still sleepy. Her pupils are 2-3 mm. She is easily aroused and answers questions appropriately, even jokingly. Complex Multi-Symp Course/Dx Course Of Treatment: When I saw Ms. Gutierrez on the EMS gurney in the hallway, she was stuporous but would respond to voice and try to answer questions. She fairly quickly drifted off if not constantly stimulated. Her pupils were both about 1-2 mm. She was placed in a room, put on a monitor and given a small dose of Narcan (0.4 mg). She did respond to the Narcan and was much brighter and talkative for a few minutes. She denied chest pain or shortness of breath or any complaints. An EKG was obtained which showed an LVH with strain pattern which was consistent with previous EKGs. She was allowed to rest on oxygen with a good pulse ox and no further Narcan here. She remained arousable to voice. Her initial troponin returned at 6 and I feeling was that this was a demand ischemia. It's unknown how long she was hypoxic but it is documented by the EMS crew that she was hypoxic on their arrival. The hospitalist service was contacted for admission. - Diagnoses Provider Diagnoses: Accidental overdose, NSTEMI (non-ST elevated myocardial infarction) - Physician Notifications Discussed Care Of Patient With: Ragini Weathers - hospitalist Time Discussed With Above Provider: 16:12 Instructed by Provider To: Admit As Inpatient - Critical Care Time Critical Care Time: 30-74 min Discharge - Sign-Out/Discharge Documenting (check all that apply): Patient Departure - ADMIT All imaging exams completed and their final reports reviewed: Yes Patient Received Moderate/Deep Sedation with Procedure: No - Discharge Plan Condition: Fair Disposition: ADMITTED TO [facility] - Billing Disposition and Condition Condition: FAIR Disposition: Admitted to [facility] - Attestation Statements Document Initiated by Locoibe: Yes Documenting Scribe: Luther Reynolds Provider For Whom Scribe is Documenting (Include Credential): Dr. Qaism Mercado MD Scribe Attestation: ILuther, scribed for Dr. Qasim Mercado MD on 03/05/19 at 2109. Scribe Documentation Reviewed: Yes Provider Attestation: The documentation as recorded by the loocibLuther yoon accurately reflects the service I personally performed and the decisions made by me, Dr. Qasim Mercado MD Status of Scribe Document: Viewed Consult Consult: 1924: Consult with Dr. Pleitez, cardio Requesting to know if patient has had CP today 2007: Consult with Dr. Maik VELASCO in ED to see patient
[2019-03-05] MEDS ORDERED: Naloxone* 0.4 MG/ML 1 ML VIAL IV ONE (15:01)
[2019-03-05 15:10] LABS: Hematocrit 32 % (33-41); Hemoglobin 9.7 g/dL (12.0-16.0); Mean Corpuscular HGB Conc 30 g/dL (31-36); Mean Corpuscular Hemoglobin 29 pg (27-31); Mean Corpuscular Volume 98 fL (80-97); Mean Platelet Volume 9.7 fL (7.4-10.4); Platelet Count 195 10^3/uL (150-450); Red Cell Distribution Width 21 % (10.5-15); White Blood Count 17.6 10^3/uL (3.5-10.8)
[2019-03-05 15:28] LABS: ALT 33 U/L (7-52); AST 69 U/L (13-39); Albumin 3.6 g/dL (3.2-5.2); Albumin/Globulin Ratio 1.4 (1-3); Alkaline Phosphatase 58 U/L (34-104); Anion Gap 6 mmol/L (2-11); BUN/Creatinine Ratio 18.9 (8-20); Blood Urea Nitrogen 35 mg/dL (6-24); CO2 Carbon Dioxide 28 mmol/L (22-32); Calcium 8.6 mg/dL (8.6-10.3); Chloride 107 mmol/L (101-111); EGFR African American 31.6 (>60); EGFR Non-African American 26.1 (>60); Globulin 2.6 g/dL (2-4); Glucose 151 mg/dL (70-100); Potassium 4.9 mmol/L (3.5-5.0); Sodium 141 mmol/L (135-145); Total Protein 6.2 g/dL (6.4-8.9)
[2019-03-05 15:35] LABS: Troponin I 6.36 ng/mL (<0.04)
[2019-03-05 15:42] LABS: ABS Basophils 0.1 10^3/ul (0-0.2); ABS Eosinophils 0.2 10^3/ul (0-0.6); ABS Lymphocytes 0.8 10^3/ul (1.0-4.8); ABS Monocytes 1.3 10^3/ul (0-0.8); ABS Neutrophils 15.3 10^3/ul (1.5-7.7); ABS Nucleated RBC 0 10^3/ul; Eosinophil % 0.9 %; Lymphocyte % 4.7 %; Nucleated Red Blood Cells % 0
[2019-03-05 15:49] LABS: Alcohol < 10 mg/dL (<10)
[2019-03-05 19:19] LABS: Troponin I 12.97 ng/mL (<0.04)
[2019-03-05 19:40] LABS: Creatine Kinase 387 U/L (10-223)
[2019-03-05 19:46] LABS: Urine Appearance Turbid; Urine Bacteria Absent (Absent); Urine Bilirubin Negative (Negative); Urine Blood Negative (Negative); Urine Color Yellow; Urine Glucose Negative (Negative); Urine Ketones Negative (Negative); Urine Nitrite Negative (Negative); Urine Protein 1+(30 mg/dL) (Negative); Urine Red Blood Cell 3+(>10/hpf) (Absent); Urine Specific Gravity 1.019 (1.010-1.030); Urine Urobilinogen Negative (Negative); Urine White Blood Cell 3+(>20/hpf) (Absent)
[2019-03-05 19:51] LABS: Barbiturates Urine Screen None Detected (None Detect); Benzodiazepine Urine Screen None Detected (None Detect); Urine Cannabinoids Screen None Detected (None Detect)
[2019-03-05] MEDS ORDERED: Piperacillin/Tazobac ADVAN(*) 3.375 GM in NS 0.9% 100 ML* 100 ML IVPB ONE (20:17)
[2019-03-05] MEDS ORDERED: cefTRIAXone(*) 1 GM in NS 0.9% 50 ML* 50 ML IVPB SCH (20:19)
[2019-03-05] MEDS ORDERED: Heparin DRIP 25,000 UNITS(*) 25,000 UNITS/500 ML BAG IV SCH (21:00)
[2019-03-05] MEDS ORDERED: Zosyn per Pharmacy* NOTE FOLLOW UP SCH (21:00)
[2019-03-05] MEDS ORDERED: LACTATED RINGERS IV ONE (21:00)
[2019-03-05] MEDS ORDERED: Nitroglycerin TAB 0.4 MG* 0.4 MG TAB SL PRN (21:12)
[2019-03-05] MEDS ORDERED: cefTRIAXone(*) 1 GM in NS 0.9% 50 ML* 50 ML IVPB ONE (21:14)
[2019-03-05 21:15] LABS: Troponin I 14.62 ng/mL (<0.04)
--- NOTE | 2019-03-05 21:25 | HP ---
CC: Dr. Grecia Anderson; Dr. Pleitez * HISTORY AND PHYSICAL: DATE OF ADMISSION: 03/05/19 PRIMARY CARE PHYSICIAN: Dr. Grecia Anderson. REDEVELOPMENT MANAGER: Dr. Pleitez. PROVIDER: KATHRYN Colon ATTENDING PHYSICIAN: Dr. Santy Pike * (dictated by KATHRYN Colon) CHIEF COMPLAINT: Generalized weakness and altered mental status. HISTORY OF PRESENT ILLNESS: Sirisha Gutierrez is an 83-year-old white female with significant past medical history which includes systolic CHF with hypertension, coronary artery disease status post PCI, history of ventricular tachycardia with cardiac arrest, CKD stage 3, possible stroke, and vascular dementia who is brought to the emergency department via EMS today on recommendation of her primary care provider's office. The patient's is her primary manager critical care and he found her on the floor of her bedroom this morning. They share different bedrooms and he last saw her yesterday evening when she went to bed. When he got her off the floor this morning, she was "incoherent" and answering questions inappropriately. He laid her back down in her bed to rest for another hour. He then brought her to the bathroom and she had difficulty ambulating and was overall weak. He had to carry most of her body weight to the bathroom. When she used the bathroom, he noticed bright red blood in the toilet. He is unsure if this was via urine or stool. The patient was still answering questions inappropriately at this point at home. He then called the PCP's office and they advised the patient to be brought to the emergency department. The is providing most of the history today as the patient has a history of vascular dementia, but she is able to answer questions appropriately at evaluation. When asked directly if the patient has chest pain , she reports that she does and points to center of her chest. She denies radiation of pain to the arms, back, neck, or jaw and denies difficulty with breathing at the time of evaluation. The reports that the patient complained of chest pain one time about a week ago that she did not again complain of. She has had a cough since yesterday according to the . He reports that she does frequently cough with meals and with drinking water at home at baseline. Additionally, her reports that he has been told by a medical provider in the past that the patient's pupils are unequal. It is of note that the patient was at the emergency department yesterday evening for nosebleed and received bilateral Rhino Rockets and IV morphine and was sent home. ED COURSE: The patient arrived to the emergency department and was reportedly answering questions incorrectly and not oriented, but was responsive to voice. The patient received 0.4 mg IV Narcan and reportedly sat right up, said "hi" to the physician and then was able to answer questions appropriately. Vital signs on arrival to the emergency department include temperature of 98.9; pulse rate of 99; respiratory rate of 12; O2 saturation of 90% not on room air, but O2 flow rate is not recorded, blood pressure 145/67. After receiving Narcan, vital signs recorded as heart rate 96, respiratory rate 20 to 24, O2 of 98% on 4 L, blood pressure 131/66. Of note, troponin is 6.36. Therefore, hospitalist medicine was asked to evaluate the patient for admission. PAST MEDICAL HISTORY: The patient has a past medical history of: 1. Systolic CHF with ejection fraction of 35% to 40%. 2. Hypertension. 3. Hypercholesterolemia. 4. Osteoarthritis. 5. PMR. 6. Iron deficiency anemia. 7. CAD status post PCI. 8. PVD. 9. History of V-tach with cardiac arrest. 10. Subclavian steal syndrome. 11. CKD, stage 3. 12. History of orthostasis. 13. Possible stroke as complication of carotid endarterectomy. PAST SURGICAL HISTORY: 1. Bilateral femoral bypass. 2. Left carotid endarterectomy. 3. Cholecystectomy. 4. Cataract surgery bilaterally. 5. Tubal ligation. 6. Hysterectomy. 7. Blood patch. HOME MEDICATIONS: 1. Carvedilol 3.125 mg p.o. b.i.d. 2. Lasix 10 mg p.o. every other day. 3. Tramadol 25 mg p.o. t.i.d. p.r.n. pain. 4. Prednisone 10 mg p.o. daily. 5. Klonopin 1 mg p.o. bedtime p.r.n. insomnia/agitation. 6. Potassium chloride 20 mEq p.o. daily. 7. Nitroglycerin 0.4 sublingual q.5 minutes p.r.n. chest pain. 8. Melatonin 5 mg p.o. at bedtime. 9. Magnesium oxide 400 mg p.o. daily. 10. Acidophilus 1 tab p.o. daily. 11. Gabapentin 600 mg p.o. bedtime. 12. Ferrous sulfate 325 mg p.o. b.i.d. 13. Lexapro 10 mg p.o. q.a.m. 14. Colace 100 mg p.o. b.i.d. 15. Vitamin B12 1000 mcg p.o. daily. 16. Plavix 75 mg p.o. daily. 17. Caltrate 600 plus D tablet, 1 tablet p.o. b.i.d. 18. Lipitor 40 mg p.o. daily. 19. Amiodarone 50 mg p.o. daily. 20. Tylenol 650 mg p.o. q.4 hours p.r.n. pain. ALLERGIES: MONOSODIUM GLUTAMATE, CEPHALEXIN (GI upset), IBUPROFEN (nausea), CHESTNUTS (lip swelling). FAMILY HISTORY: Father in an accident. Mother of "natural causes." Daughter with history of cancer. 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 She is to her , Dawit, who is her surrogate medical decision maker. The patient is a former smoker. She does not drink alcohol or use drugs. REVIEW OF SYSTEMS: An 11-point review of systems was completed and all pertinent positives and negatives are in the HPI above and all other systems are negative. PHYSICAL EXAMINATION GENERAL: A thin elderly white female, lying in hospital bed, asleep, appearing comfortable, in no acute distress, at bedside. HEENT: Head: Normocephalic, atraumatic. Eyes: Right pupil is approximately 2 mm, left pupil is approximately 3 to 4 mm. Extraocular muscles are intact. Sclerae anicteric. No nystagmus. ENT: Rhino Rocket is present in bilateral nares with dried blood present in nares. Dark brown blood present in oropharynx. Mucous membranes moist. NECK: JVP present. RESPIRATORY: Crackles auscultated bilaterally at bases and at level of middle lobe. No crackles in upper lobes. No wheezes. Chest expansion symmetrical. CARDIO: Regular rate and rhythm without murmurs, rubs, or gallops. ABDOMEN: Soft, nontender, nondistended. EXTREMITIES: Thin. No clubbing or edema. NEURO: The patient is minimally lethargic, though easily rousable to voice. Able to answer questions appropriately. Strength is 4/5 in all extremities equally. DIAGNOSTIC STUDIES/LAB DATA: EKG from 03/05/19, normal sinus rhythm, rate 105 beats per minute, normal axis, ST elevations in V1 through V3, ST elevations in these leads were previously more heightened on the EKG on 02/06/19 and therefore , appeared modestly improved today. Chest x-ray on 03/05/19, impression: "Hyperinflation with mild pulmonary interstitial edema." Chest CT on 03/05/19, impression: "Bilateral lower lobe atelectasis/pneumonia with small pleural effusions." Brain CT on 03/05/19, impression: "No acute intracranial abnormality. No change from comparison study." White blood cells 17.6, hemoglobin 9.7, hematocrit 32, platelets 195,000. Sodium 141, potassium 4.9, chloride 107, CO2 of 28, BUN 35, creatinine 1.85, glucose 151. Troponin 6.36. Lactic acid 0.9. Bili 0.8, AST 69, ALT 33, alk phos 58. Ammonia 79. ABG: PH 7.39, pCO2 of 44, pO2 of 123, bicarb 25.9, O2 sat is 99.9%, base excess 1.2. ASSESSMENT AND PLAN: Sirisha Gutierrez is an 83-year-old white female with past medical history significant for systolic congestive heart failure, hypertension , coronary artery disease status post PCI, chronic kidney disease stage 3, history of ventricular tachycardia with cardiac arrest, peripheral vascular disease, iron deficiency anemia, and possible cerebrovascular accident status post carotid endarterectomy who presents today with generalized weakness and altered mental status after an unwitnessed fall. The patient will be admitted under observation for: 1. Altered mental status. It is of note that the patient has vascular dementia , but her reports that at baseline she is able to answer questions appropriately and maintain conversation. The patient did have an unwitnessed fall this morning and was difficult to arouse. Today in the ED, the patient received Narcan and was then reportendly more oriented and alert. At the time of evaluation by myself, she continues to be lethargic, though rousable to voice. She is able to answer questions appropriately. A brain CT has been ordered given her unwitnessed fall, and is without acute intracranial pathology. It is possible that her altered mental status is related to receiving IV morphine yesterday in the ED when she arrived for nosebleed though she was still lethargic at time of evaluation so this seems less likely. A nursing dysphagia screen has been ordered and the patient will be n.p.o. until that is performed. Additionally, I have ordered a creatine kinase. It is possible that a component of this altered mental status may be due to sepsis, further described below. I will be holding the patient's melatonin, tramadol and Klonopin in the setting of altered mental status. 2. Elevated troponin. The patient does report chest pain and has a significant cardiac history. Her first troponin was elevated to 6.36, and troponins will be trended. The patient's last echo was in November and needs to be repeated in the morning. EKG with ST elevations, but similar to last EKG. Dr. Aleman consulted and discussed treatment with patient's . The does not want invasive procedures and agrees with medical management. Heparin drip ordered, aspirin 81 mg daily, and continue home plavix. Dr. Simmons was made aware of this situation given the recent epistaxis. Continue home lipitor, carvedilol for home treatment of CAD. It is of note that in the last office visit with CHARGER TESTER Leticia Garrett, the patient's was amenable to considering palliative care for the patient. 3. Sepsis secondary to pneumonia. Patient is currently on 4 L oxygen and has a cough which is new since yesterday. Cough may be a component of bloody postnasal drip from epistaxis, though more likely related to pneumonia with pleural effusions which was confirmed on CT. Patient meets sepsis criteria today as she was tachycardic and tachypneic in the ED with WTC to 17.6. Blood cultures ordered and IV zosyn given after blood cultures drawn. IV zosyn selected for empiric treatment given risk of aspiration at home. Repeat assessment in 6 hours will be completed. Patient has cephalexin allergy but is not a true allergy. 4. Anemia. The patient does carry a diagnosis of iron deficiency anemia. Her hemoglobin on admission was 9.7. This appears to be at her baseline. However, the reports the patient had bright red blood in the toilet today and it is unclear whether this is due to urine or stool. Straight cath urinalysis with reflex urine culture has been ordered and diagnostic stool Hemoccult. An H and H was not measured yesterday when the patient presented for epistaxis, so it is unclear if there has been significant blood loss; however, her hemoglobin from admission on 02/07/19 was also 9.7. I will continue the patient's home iron supplement. 5. Acute on chronic kidney injury. Patient has history of stage 3 CKD and presents with creatinine of 1.82 today. It appears her baseline is approximately 1.5-1.6. She is receiving LR fluid bolus per sepsis protocol and creatinine will be monitored for improvement. Ordered creatinine kinase to rule out possible rhabdomyolysis. CHRONIC CONDITIONS: 6. Systolic congestive heart failure. Continue carvedilol, potassium chloride , and holding home Lasix. 7. History of ventricular tachycardia with cardiac arrest. Continue home amiodarone. The patient is in normal sinus rhythm at the time of admission. 8. FEN. A fluid bolus has been given per sepsis protocol. Diet is currently n.p.o. in anticipation of a bedside nursing dysphagia study. Otherwise, the patient can receive heart healthy diet, decaf okay. 9. Code status. The patient's has updated the MOLST with me today. CPR is approved, but patient is DNI. 10. DVT prophylaxis. Heparin drip in place, no additional chemoprophylaxis needed. SCDs have been ordered for now. TIME SPENT: On this admission approximately 60 minutes, approximately half this time spent at bedside. Case has been reviewed by my attending, Dr. Santy Pike, and he agrees with this plan of care. KATHRYN COLON [id number]/[facility] #: [id number] COREY
[2019-03-05] MEDS ORDERED: Heparin VIAL(*) 5000 UNITS/ML VIAL (FIVE THOUSAND) ONE (23:06)
[2019-03-05] MEDS: Aspirin 81 mg CHEW TAB* 81 MG TAB.CHEW PO SCH (23:16)
[2019-03-05] MEDS: Carvedilol TAB* 3.125 MG PO SCH (23:16)
[2019-03-06 01:10] LABS: Troponin I 19.55 ng/mL (<0.04)
--- NOTE | 2019-03-06 01:17 | CONS ---
CC: Dr. Anderson; Dr. Pleitez CARDIOLOGY CONSULT: DATE OF CONSULT: 03/05/19 HISTORY OF PRESENT ILLNESS: I was asked by hospitalist service to see this 83- year- old female patient, who presented to the hospital after she had a fall at home. is at bedside. The patient and the family are known to me. The patient does have extensive cardiac history, vasculopathy, and comorbidities. Most recently she had multiples admissions to [facility] [place], [place], on 01/29/19 for CHF, for vascular dementia. Last night, she had nasal bleed as per the and needed balloon to stop the bleeding from the nose. She does have nostril bleed history in the past. In summary, the patient does have known history of coronary artery disease. Last cardiac cath documented in the system was from 2013. At that time point, it showed her to have her left main, no disease; LAD , moderate irregularities; circ, 50% disease; RCA, 30% proximal and 40% distal. She does have also known history of mixed valvular disease at some point. She was followed up by Dr. Carrillo in [place], cardiothoracic surgeon, for consideration for surgery of the mitral valve and aortic valve. Most recently, the patient expressed palliative care and conservative medical treatment. As per the patient, this morning while she was walking in her bedroom, she fell, but she did not pass out. There was no preceding symptoms of chest pain, palpitation, nausea, vomiting. The called 911. They brought her to the emergency room. As per the ER, she received a small dose of Narcan as per ER Dr. Mercado, and she started to wake up. There is conflicting report of chest pain and no chest pain. The patient does have vascular dementia. As per the patient, it is getting worse. At some point, she was seen by EP for polymorphic V-tach and it was a provocable cause, no evidence of problem with QTc, and ICD was not recommended and left for medial treatment. In the emergency room, she had an EKG, which is essentially no significant changes from her previous EKGs. In summary, the EKG showed her to have normal sinus rhythm and also she does have LVH with secondary repolarization, ST-T abnormality. There is anterior ST elevation, possibly secondary to LVH and no significant changes from previous EKGs actually. Looking at all EKGs, they are essentially the same. However, she was found to have initial troponin of 6.36. The second one at 1843 was 12.97. Her BUN is 35, creatinine 1.85. Cardiology was further called. In speaking to the patient, she is still leaning for more conservative care and I was very clear with her in my discussion in that regard , and although she expressed CPR in the case of cardiac arrest, he expressed also no intubation, no ventilation or ventilator machine. She had an echo in November 2018, EF 35% to 40%, mild-to- moderate , [id number]-hf-[id number] MR, and moderate mitral stenosis. The patient currently is lethargic and as indicated above, she does have vascular dementia. There is no nausea, no vomiting, no fever, no chills, no skin rash, no tremors, no hematochezia is appreciated. *PAST MEDICAL HISTORY: As outlined above and other medical problems include systemic arterial hypertension, hyperlipidemia, polymyalgia rheumatica, chest pain, subclavian steal syndrome, depression. PAST SURGICAL HISTORY: Bypass in the late 1996. Femoral carotid endarterectomy , left, 2003. Tubal ligation, cholecystectomy, hysterectomy. CARDIAC TESTING: Echo November 2018, cardiac cath 2013. MEDICATIONS: Her medications as an outpatient include: 1. Oxygen 3 L. 2. Lipitor 4 mg daily. 3. Plavix 75 mg daily. 4. Lexapro 10 mg daily. 5. Nitrostat 0.4 mg p.r.n. 6. Magnesium 400 mg daily. 7. Vitamin B12 1000 mcg daily. 8. Amiodarone 100 mg half daily. 9. Metoprolol 25 mg half daily. 10. Ferrous sulfate 325 mg twice daily. 11. Lasix 20 mg half every other day. 12. Potassium 20 mEq once daily. 13. Prednisone 10 mg daily. ALLERGIES: She is allergic to ASPIRIN; MOTRIN; IBUPROFEN; BLOOD THINNERS, nose bleed; HYDROCHLOROTHIAZIDE; AUGMENTIN. FAMILY HISTORY: No family history of premature CAD. SOCIAL HISTORY: She is . She lives with her . History of smoking in the past, she quit. No significant alcohol abuse. No drug abuse. REVIEW OF SYSTEMS: Review of all other systems essentially is negative. PHYSICAL EXAM: On exam, she is lethargic, but she is arousable. Her vitals, blood pressure 160/79; pulse 94, sinus; temperature 100. Ear, nose, and throat essentially benign. Neck supple. JVP is not elevated. No carotid bruits. Chest: Diminished air entry at the bases. Heart: Normal S1, S2. Grade 2-3/6 systolic murmur in the left sternal border. Abdomen: Benign. Positive bowel sounds. Extremities: No edema. THERMOGRAPH OPERATOR: Difficult to evaluate, although no focal deficit. Skin exam is normal. Psych: Difficult to evaluate. DIAGNOSTIC STUDIES/LAB DATA: EKG as outlined above. Her labs showed the following: White blood cells 17.6, hemoglobin 9.7, hematocrit 32, and platelets 195. Her chemistry, sodium 141, potassium 4.9, chloride 107, BUN 35, creatinine 1.85, AST 69, ammonia 79. CK 387. Troponins I 6.36, then 12.97. Her CT chest showed the patient to have bilateral lower lobe atelectasis, pneumonia, small pleural effusion. IMPRESSION: The patient is an 83-year-old female with: 1. Presentation after a fall and found to have elevated troponin, ruled in for non- ST elevation myocardial infarction. 2. Known history of coronary artery disease as outlined above. 3. Abnormal baseline EKG as described. 4. Pneumonia with leukocytosis and low-grade fever. 5. Chronic kidney disease, stage 3. 6. Mitral stenosis, [id number]. 7. Aortic stenosis, [id number]. 8. Mitral insufficiency, [id number]. 9. Cardiomyopathy with EF 35% to 40%. 10. Vascular dementia. 11. Vascular disease with a history of bypass femoral lower extremities. 12. History of ventricular tachycardia. PLAN: The patient has very complex comorbidities as outlined above. I had a very lengthy talk with the who was at bedside in the emergency room and he clearly expressed the wishes the patient to be only for conservative medical treatment at the present time including medications. There is no invasive procedure, specifically no cardiac catheterization, no cardiac surgeries. He is amenable to have a transthoracic echo to follow up on her. In case of cardiac arrest, he is okay for a short or limited CPR, but they do not want the patient to be intubated and connected to a vent machine. That was very clear from the , and I have discussed this with hospitalist service KATHRYN Hicks, who documented this as well in the patient's chart. Meanwhile, the patient will be admitted to the intensive care unit. We will continue carefully her outpatient medications including beta-mercedes, statin, heparin in the setting of myocardial infarction, baby aspirin, and we would be very careful regarding her history of nasal bleed at the present time. Prognosis is guarded at the time, and we will follow closely. I answered all their concerns and questions up to their satisfaction. She remains critical based on her myocardial infarction, elevated troponin, comorbidities, and advanced age. Any further recommendations will be pending her clinical outcome. Treatment for her pneumonia as per hospitalist service. TIME SPENT: Total critical care time evaluating this patient, making further recommendations and diffusions is more than 60 to 65 minutes. [id number]/CPS #: [id number] COREY
--- NOTE | 2019-03-06 01:24 | PN ---
Hospitalist Progress Note Sepsis follow up assessment. Pt was administered sepsis fluids (1 L given h/o HF) by admitting PA for pneumonia seen on CT, with tachycardia, tachypnea, leukocysosis. Unclear if pt was truly having severe sepsis, given no clear evidence for tissue hypoperfusion (lactate was normal, Cr at baseline). Exam: afeb, HR 80s, BP 120s/70s, RR 22, SaO2 95% on 4L mask chronically ill appearing woman, minimally responsive, nontoxic appearing drying blood visible over packing in nares mucous membranes moist crackles at bases laterally over chest, clear anteriorly skin turgor normal, unable to examine cap refill given nail estonian no LE edema Will hold off on further IVF for now. To continue on Zosyn. Noted that trop continues to increase. Pt is on full medical therapy for ACS, with family preferring no intervention. Will continue to trend until peak. GFR 26, likely impairing clearance.
[2019-03-06] MEDS: ZOSYN 3.375 GM Q12H per EXTENDED INFUSION IVPB SCH ×4 (02:12→14:33)
[2019-03-06 05:30] LABS: ABS Basophils 0 10^3/ul (0-0.2); ABS Eosinophils 0.1 10^3/ul (0-0.6); ABS Lymphocytes 0.5 10^3/ul (1.0-4.8); ABS Monocytes 1.1 10^3/ul (0-0.8); ABS Neutrophils 15.1 10^3/ul (1.5-7.7); ABS Nucleated RBC 0 10^3/ul; Eosinophil % 0.6 %; Hematocrit 28 % (33-41); Hemoglobin 8.6 g/dL (12.0-16.0); Lymphocyte % 3.2 %; Mean Corpuscular HGB Conc 31 g/dL (31-36); Mean Corpuscular Hemoglobin 30 pg (27-31); Mean Corpuscular Volume 98 fL (80-97); Mean Platelet Volume 9.8 fL (7.4-10.4); Nucleated Red Blood Cells % 0; Platelet Count 157 10^3/uL (150-450); Red Blood Count 2.86 10^6 /uL (3.70-4.87); Red Cell Distribution Width 20 % (10.5-15); White Blood Count 16.9 10^3/uL (3.5-10.8)
[2019-03-06] MEDS ORDERED: NS 0.9% 500 ML* 500 ML IV ONE (05:44)
[2019-03-06 05:50] LABS: ALT 30 U/L (7-52); Albumin/Globulin Ratio 1.3 (1-3); Alkaline Phosphatase 50 U/L (34-104); BUN/Creatinine Ratio 17.8 (8-20); Blood Urea Nitrogen 31 mg/dL (6-24); CO2 Carbon Dioxide 26 mmol/L (22-32); Calcium 8.1 mg/dL (8.6-10.3); Chloride 109 mmol/L (101-111); EGFR African American 33.9 (>60); Globulin 2.3 g/dL (2-4); Glucose 119 mg/dL (70-100); Sodium 142 mmol/L (135-145); Total Protein 5.3 g/dL (6.4-8.9)
[2019-03-06 05:54] LABS: Anion Gap 7 mmol/L (2-11)
[2019-03-06 06:28] LABS: Troponin I 18.84 ng/mL (<0.04)
[2019-03-06] MEDS: Aspirin 81 mg CHEW TAB* 81 MG TAB.CHEW PO SCH (07:57)
[2019-03-06] MEDS: Carvedilol TAB* 3.125 MG PO SCH (07:57)
[2019-03-06] MEDS: Amiodarone TAB* 200 MG PO SCH (07:57)
[2019-03-06] MEDS: Potassium Chlor TAB* 20 MEQ TAB.ER PO SCH (07:57)
[2019-03-06] MEDS: predniSONE TAB* 10 MG PO SCH (07:57)
[2019-03-06] MEDS: Magnesium Oxide TAB* 400 MG PO SCH (07:57)
[2019-03-06] MEDS ORDERED: Ferrous Sulfate TAB* 325 MG PO SCH (09:00)
[2019-03-06] MEDS ORDERED: Cyanocobalamin TAB* 500 MCG PO SCH (09:00)
[2019-03-06] MEDS ORDERED: Docusate CAP* 100 MG PO SCH (09:00)
[2019-03-06] MEDS: Haloperidol INJ IV/IM* 5 MG/ML AMP IM PRN ×2 (09:06→09:29)
[2019-03-06] MEDS ORDERED: Haloperidol INJ IV/IM* 5 MG/ML AMP IM ONE (09:46)
[2019-03-06] MEDS: Haloperidol INJ IV/IM* 5 MG/ML AMP ONE ×2 (09:48→10:02)
[2019-03-06] MEDS ORDERED: Haloperidol INJ IV/IM* 5 MG/ML AMP ONE (09:56)
[2019-03-06] MEDS ORDERED: LORazepam INJ* 2 MG/ML 1 ML VIAL IV PUSH ONE (10:20)
--- NOTE | 2019-03-06 13:12 | CONSULT ---
Consult Consult: Consultation Note -- Critical Care Requesting Physician: Dr Santy Pike Reason for consult: mental status change, NSTEMI, respiratory distress Limitations in history/physical: change in mental stauts; history from chart and at bedside Date of consult: 03/06/2019 HPI: 83y F w/pmhx of Dementia, Anemia, CAD s/p PCI, Chronic Moderate LV systoic dysfxn with mod , mild/mod AI, mild-mod MR, Mod MS, h/o VT, HLD, HTN, PVD s/p left fem-pop, CKD3, Carotid artery disease with endartectomy 2013 Left and Right 2017, h/o PEG, h/o epistaxis in past; Patient presented on 03/04 to ER with complaints of epistaxis, was treated and discharged home, was given some morphine IV for pain. On 03/06 patient was found by on floor at home, suspected she fell, but no LOC noted. Patient stated she did not get dizzy or pass out. She appeared very weak to and unable to stand on her own. She did not have apparent respiratory distress/fever/abd pain, no chest pain stated by patient to or seemed like she was clutching chest. He called PMD because she was confused, very weak, not acting herself and he was advised to take her to the ER. She was brought to ER for weakness, confusion, found to be tachycardic, tachypneic, BP elevated, tmax 100.7. She was confused, appeared lethargic. Initially thought to be possible narcotics causing this and was given narcan by ER, with some improvement in mental status as documented. CXR demonstrated some basal atelectasis +/- infiltrates. Labs demonstrated elevated troponin of 6, without new overt EKG Changes, but a question of ST changes was there. Cardiology consulted and they though this was LVH with strain pattern, probably better than or similar to prior EKGs she has had. They discussed with and decision on both sides is that she has comorbidities and would not do well with another cardiac cath, so it was deferred for conservative medical management, so she was started on IV heparin/asa/plavix, as well as IV abx for possible infection. CUrrently she is admitted to ICU, this morning was confused, restless, started on restraints for self protection. She is on oximask, no resp distress, HR 80s sinus, BP 130-140s. She wakes and follows commands, but is confused at times, but pleasant. I discussed current status with , he has stated he would like her full code, no DNR/DNI, but would not like her to be on vent support forever ROS: limited ROS due to mental status change, underlying Dementia PMHx: Dementia, Anemia, CAD s/p PCI, Chronic Moderate LV systoic dysfxn with mod , mild/mod AI, mild-mod MR, Mod MS, h/o VT, HLD, HTN, PVD s/p left fem-pop , CKD3, Carotid artery disease with endartectomy 2013 Left and Right 2017, h/o PEG, h/o epistaxis in past PSHx: hysterectomy, cholecystectomy, nose surgery, femoral bypass 1996, left carotid endartectomy 2013, Right 2017, PEG 02/2018, nasal epistaxis 04/2018 Family History: father in accident, daughter has cancer, mother Social History: Alcohol-weekly wine, Smoking-former smoker 1ppd, Drug use-none; 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 Verified 03/06/19 09:20 Breathing/I tching monosodium glutamate AdvReac Mild headache, Verified 03/04/19 22:02 jitters cephalexin AdvReac GI Upset Verified 03/04/19 22:02 ibuprofen AdvReac Nausea Verified 03/04/19 22:02 CHESTNUTS Allergy Severe LIPS SWELL Uncoded 03/04/19 22:02 AND ARE VERY PAINFUL METALS Allergy Unknown Rash Uncoded 03/04/19 22:02 SEASONAL Allergy STUFFY Uncoded 03/04/19 22:02 HAYFEVER/ENVIRONMENTAL NOSE, WATERY EYES Home Medications: clonazePAM TAB(*) [Klonopin TAB(*)] 1 mg PO BEDTIME PRN 05/03/18 [History Confirmed 03/05/19] Acetaminophen TAB* [Tylenol TAB*] 650 mg PO Q4HR MDD 1950 mg 07/06/18 [History Confirmed 03/05/19] Atorvastatin* [Lipitor 40 MG*] 40 mg PO BEDTIME 07/06/18 [History Confirmed 08/15] Cyanocobalamin TAB* [Vitamin B12 TAB*] 1,000 mcg PO DAILY 07/06/18 [History Confirmed 03/05/19] Escitalopram * [Lexapro 10 mg (NF)] 10 mg PO QAM 07/06/18 [History Confirmed 08/15] Gabapentin CAP(*) [Neurontin 300 CAP(*)] 600 mg PO BEDTIME 07/06/18 [History Confirmed 03/05/19] Lactobacillus Acidophilus [Acidophilus] 1 tab PO DAILY 07/06/18 [History Confirmed 03/05/19] Magnesium Oxide TAB* [MagOx 400 TAB*] 400 mg PO DAILY 07/06/18 [History Confirmed 03/05/19] Nitroglycerin TAB 0.4 MG* 0.4 mg SL Q5M PRN 07/06/18 [History Confirmed 03/05/19 ] traMADol TAB* [Ultram*] 25 mg PO TID PRN MDD 75 mg 07/06/18 [History Confirmed 03/05/19] Clopidogrel TAB* [Plavix TAB*] 75 mg PO BEDTIME 12/18/18 [History Confirmed 08/15] Amiodarone HCl [Amiodarone HCl-] 50 mg PO DAILY #0 01/30/19 [Rx Confirmed ] Potassium Chloride [Klor-Con M20] 20 meq PO DAILY #30 tab.er.prt 01/30/19 [Rx Confirmed 03/05/19] Quan/D3/Mag11/Zinc/Cotton Picker/Shiva/Bor [Caltrate 600+D Plus Tablet] 1 tab PO BID [History Confirmed 03/05/19] Furosemide TAB* [Lasix TAB*] 10 mg PO EVERY OTHER DAY 02/06/19 [History Confirmed 03/05/19] Melatonin 5 mg PO BEDTIME 02/06/19 [History Confirmed 03/05/19] predniSONE TAB* [Deltasone 10 MG TAB*] 10 mg PO DAILY 02/06/19 [History Confirmed 03/05/19] Docusate CAP* [Colace Cap*] 100 mg PO BID cap 02/07/19 [Rx Confirmed 03/05/19] Carvedilol [Coreg] 3.125 mg PO BID 03/05/19 [History Confirmed 03/05/19] Ferrous Sulfate TAB* 325 mg PO BID 03/05/19 [History Confirmed 03/05/19] Vitals: Vital Signs Temp 97.8 F 03/06/19 11:24 Pulse 83 03/06/19 13:00 Resp 27 03/06/19 13:17 BP 141/76 03/06/19 13:00 Pulse Ox 100 03/06/19 13:00 Intake & Output 03/05/19 03/06/19 03/06/19 18:59 06:59 18:59 Intake Total 1310 500 Output Total 125 0 Balance 1185 500 Weight 54.431 kg 58 kg Intake: IV Fluids 1250 500 ABX - ZOSYN 100 Oral 60 0 Output: Urine 125 0 Other: Estimated Void Large # Voids 1 O2/Vent: aerosol mask 5L Infusions: IV heparin Current Medications: Acetaminophen (Tylenol Tab*) 975 mg PO Q8H PRN PRN Reason: FEVER/PAIN Amiodarone HCl (Cordarone Tab*) 50 mg PO DAILY FOR[facility], [facility] Last Admin: 03/06/19 07:57 Dose: 50 mg Aspirin (Aspirin 81 Mg Chew Tab*) 81 mg PO DAILY [facility] Last Admin: 03/06/19 07:57 Dose: 81 mg Atorvastatin Calcium (Lipitor*) 40 mg PO BEDTIME [facility], [facility] Carvedilol (Coreg Tab*) 3.125 mg PO BID [facility] Last Admin: 03/06/19 07:57 Dose: 3.125 mg Clopidogrel Bisulfate (Plavix Tab*) 75 mg PO BEDTIME [facility] Escitalopram Oxalate (Lexapro *) 10 mg PO QAM [facility] Gabapentin (Neurontin Cap(*)) 600 mg PO BEDTIME [facility] Heparin Sodium/Dextrose (Heparin Drip 25,000 Units(*)) 25,000 units in 500 mls @ 0 mls/hr IV PER RATE [facility], [facility]; Protocol Last Admin: 03/05/19 23:24 Dose: 13 mls/hr Piperacillin Sod/Tazobactam (Sod 3.375 gm/ Sodium Chloride) 100 mls @ 25 mls/ hr IVPB Q12H [facility] Last Admin: 03/06/19 02:12 Dose: 25 mls/hr Magnesium Oxide (Magox 400 Tab*) 400 mg PO DAILY [facility] Last Admin: 03/06/19 07:57 Dose: 400 mg Nitroglycerin (Nitroglycerin Tab 0.4 Mg*) 0.4 mg SL Q5M PRN PRN Reason: PAIN - CHEST Pharmacy Consult (Zosyn Per Pharmacy*) 1 note FOLLOW UP .ZOSYN PER PHARMACY FORMERLY [facility] Potassium Chloride (Klor Con Er Tab*) 20 meq PO DAILY [facility] Last Admin: 03/06/19 07:57 Dose: 20 meq Prednisone (Deltasone Tab*) 10 mg PO DAILY [facility] Last Admin: 03/06/19 07:57 Dose: 10 mg Physical Exam: Constitutional: awake, alert, confused, no distress, no diaphoresis Head: normocephalic, atraumatic Eyes: no pallor, no icterus ENT: moist mucous membranes Neck: soft, supple, no jvd, no stridor CVS: normal rate, regular, no murmur Resp: bilateral air entry, some diminished BS on right compared to left, no rhales, no wheeze, no rhonchi, no acc muscle use Abdomen/GI: soft, nontender, nondistended, BS+ Ext/Msk: warm, pulses+, no edema Skin: intact, warm Neuro: awake, alert, orientedx1, confused, moving all extremities, no gross focal deficit Labs: Laboratory Results - last 24 hr 03/05/19 03/05/19 03/05/19 14:37 14:52 14:52 WBC 17.6 H RBC 3.30 L Hgb 9.7 L Hct 32 L MCV 98 H MCH 29 MCHC 30 L RDW 21 H Plt Count 195 MPV 9.7 Neut % (Auto) 86.5 Lymph % (Auto) 4.7 Benton % (Auto) 7.5 Eos % (Auto) 0.9 Baso % (Auto) 0.4 Absolute Neuts (auto) 15.3 H Absolute Lymphs (auto) 0.8 L Absolute Monos (auto) 1.3 H Absolute Eos (auto) 0.2 Absolute Basos (auto) 0.1 Absolute Nucleated RBC 0 Nucleated RBC % 0 APTT ABG pH 7.39 ABG pCO2 44 ABG pO2 123 H ABG HCO3 25.9 ABG O2 Saturation 99.9 H ABG Base Excess 1.2 Sodium 141 Potassium 4.9 Chloride 107 Carbon Dioxide 28 Anion Gap 6 BUN 35 H Creatinine 1.85 H Est GFR ( Amer) 31.6 Est GFR (Non-Af Amer) 26.1 BUN/Creatinine Ratio 18.9 Glucose 151 H Lactic Acid Calcium 8.6 Total Bilirubin 0.80 AST 69 H ALT 33 Alkaline Phosphatase 58 Ammonia Total Creatine Kinase Troponin I 6.36 H* Total Protein 6.2 L Albumin 3.6 Globulin 2.6 Albumin/Globulin Ratio 1.4 Urine Color Urine Appearance Urine pH Ur Specific Linden Urine Protein Urine Ketones Urine Blood Urine Nitrate Urine Bilirubin Urine Urobilinogen Ur Leukocyte Esterase Urine WBC (Auto) Urine RBC (Auto) Urine Bacteria Urine Glucose Urine Ascorbic Acid Urine Opiates Screen Ur Barbiturates Screen Ur Phencyclidine Scrn Ur Amphetamines Screen U Benzodiazepines Scrn Urine Cocaine Screen U Cannabinoids Screen Serum Alcohol < 10 03/05/19 03/05/19 03/05/19 14:52 14:53 18:43 WBC RBC Hgb Hct MCV MCH MCHC RDW Plt Count MPV Neut % (Auto) Lymph % (Auto) Benton % (Auto) Eos % (Auto) Baso % (Auto) Absolute Neuts (auto) Absolute Lymphs (auto) Absolute Monos (auto) Absolute Eos (auto) Absolute Basos (auto) Absolute Nucleated RBC Nucleated RBC % APTT ABG pH ABG pCO2 ABG pO2 ABG HCO3 ABG O2 Saturation ABG Base Excess Sodium Potassium Chloride Carbon Dioxide Anion Gap BUN Creatinine Est GFR ( Amer) Est GFR (Non-Af Amer) BUN/Creatinine Ratio Glucose Lactic Acid 0.9 Calcium Total Bilirubin AST ALT Alkaline Phosphatase Ammonia 79 H Total Creatine Kinase 387 H Troponin I 12.97 H* Total Protein Albumin Globulin Albumin/Globulin Ratio Urine Color Urine Appearance Urine pH Ur Specific Linden Urine Protein Urine Ketones Urine Blood Urine Nitrate Urine Bilirubin Urine Urobilinogen Ur Leukocyte Esterase Urine WBC (Auto) Urine RBC (Auto) Urine Bacteria Urine Glucose Urine Ascorbic Acid Urine Opiates Screen Ur Barbiturates Screen Ur Phencyclidine Scrn Ur Amphetamines Screen U Benzodiazepines Scrn Urine Cocaine Screen U Cannabinoids Screen Serum Alcohol 03/05/19 03/05/19 03/05/19 19:05 19:05 20:40 WBC RBC Hgb Hct MCV MCH MCHC RDW Plt Count MPV Neut % (Auto) Lymph % (Auto) Benton % (Auto) Eos % (Auto) Baso % (Auto) Absolute Neuts (auto) Absolute Lymphs (auto) Absolute Monos (auto) Absolute Eos (auto) Absolute Basos (auto) Absolute Nucleated RBC Nucleated RBC % APTT ABG pH ABG pCO2 ABG pO2 ABG HCO3 ABG O2 Saturation ABG Base Excess Sodium Potassium Chloride Carbon Dioxide Anion Gap BUN Creatinine Est GFR ( Amer) Est GFR (Non-Af Amer) BUN/Creatinine Ratio Glucose Lactic Acid Calcium Total Bilirubin AST ALT Alkaline Phosphatase Ammonia Total Creatine Kinase Troponin I 14.62 H* Total Protein Albumin Globulin Albumin/Globulin Ratio Urine Color Yellow Urine Appearance Turbid Urine pH 5.0 Ur Specific Linden 1.019 Urine Protein 1+(30 mg/dl) A Urine Ketones Negative Urine Blood Negative Urine Nitrate Negative Urine Bilirubin Negative Urine Urobilinogen Negative Ur Leukocyte Esterase 3+ A Urine WBC (Auto) 3+(>20/hpf) A Urine RBC (Auto) 3+(>10/hpf) A Urine Bacteria Absent Urine Glucose Negative Urine Ascorbic Acid * A Urine Opiates Screen Presumptive positive A Ur Barbiturates Screen None detected Ur Phencyclidine Scrn None detected Ur Amphetamines Screen None detected U Benzodiazepines Scrn None detected Urine Cocaine Screen None detected U Cannabinoids Screen None detected Serum Alcohol 03/05/19 03/06/19 03/06/19 23:01 00:35 05:15 WBC 16.9 H RBC 2.86 L Hgb 8.6 L Hct 28 L MCV 98 H MCH 30 MCHC 31 RDW 20 H Plt Count 157 MPV 9.8 Neut % (Auto) 89.2 Lymph % (Auto) 3.2 Benton % (Auto) 6.8 Eos % (Auto) 0.6 Baso % (Auto) 0.2 Absolute Neuts (auto) 15.1 H Absolute Lymphs (auto) 0.5 L Absolute Monos (auto) 1.1 H Absolute Eos (auto) 0.1 Absolute Basos (auto) 0 Absolute Nucleated RBC 0 Nucleated RBC % 0 APTT 26.5 ABG pH ABG pCO2 ABG pO2 ABG HCO3 ABG O2 Saturation ABG Base Excess Sodium Potassium Chloride Carbon Dioxide Anion Gap BUN Creatinine Est GFR ( Amer) Est GFR (Non-Af Amer) BUN/Creatinine Ratio Glucose Lactic Acid Calcium Total Bilirubin AST ALT Alkaline Phosphatase Ammonia Total Creatine Kinase Troponin I 19.55 H* Total Protein Albumin Globulin Albumin/Globulin Ratio Urine Color Urine Appearance Urine pH Ur Specific [place] Urine Protein Urine Ketones Urine Blood Urine Nitrate Urine Bilirubin Urine Urobilinogen Ur Leukocyte Esterase Urine WBC (Auto) Urine RBC (Auto) Urine Bacteria Urine Glucose Urine Ascorbic Acid Urine Opiates Screen Ur Barbiturates Screen Ur Phencyclidine Scrn Ur Amphetamines Screen U Benzodiazepines Scrn Urine Cocaine Screen U Cannabinoids Screen Serum Alcohol 03/06/19 03/06/19 03/06/19 05:15 05:15 06:15 WBC RBC Hgb Hct MCV MCH MCHC RDW Plt Count MPV Neut % (Auto) Lymph % (Auto) Benton % (Auto) Eos % (Auto) Baso % (Auto) Absolute Neuts (auto) Absolute Lymphs (auto) Absolute Monos (auto) Absolute Eos (auto) Absolute Basos (auto) Absolute Nucleated RBC Nucleated RBC % APTT 107.5 H* ABG pH ABG pCO2 ABG pO2 ABG HCO3 ABG O2 Saturation ABG Base Excess Sodium 142 Potassium TNP TNP Chloride 109 Carbon Dioxide 26 Anion Gap 7 BUN 31 H Creatinine 1.74 H Est GFR ( Amer) 33.9 Est GFR (Non-Af Amer) 28.0 BUN/Creatinine Ratio 17.8 Glucose 119 H Lactic Acid Calcium 8.1 L Total Bilirubin 0.60 AST TNP TNP ALT 30 Alkaline Phosphatase 50 Ammonia Total Creatine Kinase Troponin I 18.84 H* Total Protein 5.3 L Albumin 3.0 L Globulin 2.3 Albumin/Globulin Ratio 1.3 Urine Color Urine Appearance Urine pH Ur Specific Lind[place] Urine Protein Urine Ketones Urine Blood Urine Nitrate Urine Bilirubin Urine Urobilinogen Ur Leukocyte Esterase Urine WBC (Auto) Urine RBC (Auto) Urine Bacteria Urine Glucose Urine Ascorbic Acid Urine Opiates Screen Ur Barbiturates Screen Ur Phencyclidine Scrn Ur Amphetamines Screen U Benzodiazepines Scrn Urine Cocaine Screen U Cannabinoids Screen Serum Alcohol 03/06/19 03/06/19 12:25 12:25 WBC 14.9 H RBC 2.82 L Hgb 8.4 L Hct 28 L MCV 98 H MCH 30 MCHC 30 L RDW 20 H Plt Count 141 L MPV 10.1 Neut % (Auto) 94.1 Lymph % (Auto) 2.7 Benton % (Auto) 3.0 Eos % (Auto) 0.1 Baso % (Auto) 0.1 Absolute Neuts (auto) 14.0 H Absolute Lymphs (auto) 0.4 L Absolute Monos (auto) 0.4 Absolute Eos (auto) 0 Absolute Basos (auto) 0 Absolute Nucleated RBC 0 Nucleated RBC % 0 APTT 77.1 H ABG pH ABG pCO2 ABG pO2 ABG HCO3 ABG O2 Saturation ABG Base Excess Sodium Potassium Chloride Carbon Dioxide Anion Gap BUN Creatinine Est GFR ( Amer) Est GFR (Non-Af Amer) BUN/Creatinine Ratio Glucose Lactic Acid Calcium Total Bilirubin AST ALT Alkaline Phosphatase Ammonia Total Creatine Kinase Troponin I Total Protein Albumin Globulin Albumin/Globulin Ratio Urine Color Urine Appearance Urine pH Ur Specific [place] Urine Protein Urine Ketones Urine Blood Urine Nitrate Urine Bilirubin Urine Urobilinogen Ur Leukocyte Esterase Urine WBC (Auto) Urine RBC (Auto) Urine Bacteria Urine Glucose Urine Ascorbic Acid Urine Opiates Screen Ur Barbiturates Screen Ur Phencyclidine Scrn Ur Amphetamines Screen U Benzodiazepines Scrn Urine Cocaine Screen U Cannabinoids Screen Serum Alcohol Imaging: cxr 03/05- mild congestion cxr 03/06 - mild congestion, possible left lower lobe infiltrate CT brain 03/05 - no acute process Assessment: 83y F w/pmhx of Dementia, Anemia, CAD s/p PCI, Chronic Moderate LV systoic dysfxn with mod , mild/mod AI, mild-mod MR, Mod MS, h/o VT, HLD, HTN, PVD s/p left fem-pop, CKD3, Carotid artery disease with endartectomy 2014 Left and Right 2018, h/o PEG, h/o epistaxis in past; Patient presented on 03/04 to ER with complaints of epistaxis, was treated and discharged home, was given some morphine IV for pain. On 03/06 patient was found by on floor at home, suspected she fell, but no LOC noted. Patient stated she did not get dizzy or pass out. She appeared very weak to and unable to stand on her own. She did not have apparent respiratory distress/fever/abd pain, no chest pain stated by patient to or seemed like she was clutching chest. He called PMD because she was confused, very weak, not acting herself and he was advised to take her to the ER. She was brought to ER for weakness, confusion, found to be tachycardic, tachypneic, BP elevated, tmax 100.7. She was confused, appeared lethargic. Initially thought to be possible narcotics causing this and was given narcan by ER, with some improvement in mental status as documented. CXR demonstrated some basal atelectasis +/- infiltrates. Labs demonstrated elevated troponin of 6, without new overt EKG Changes, but a question of ST changes was there. Cardiology consulted and they though this was LVH with strain pattern, probably better than or similar to prior EKGs she has had. They discussed with and decision on both sides is that she has comorbidities and would not do well with another cardiac cath, so it was deferred for conservative medical management, so she was started on IV heparin/asa/plavix, as well as IV abx for possible infection. -Metabolic encephalopathy on underlying Dementia -NSTEMI -possible pneumonia, r/o sepsis -Epistaxis CKD3 Chronic Mod LV systolic dysfxn mod , AI, MR, MS PVD Plan: Neuro- -unclear etiology of change in mental status; has underlying NSTEMI buyt also has SIRS with possible pneumonia -CT brain without acute process -underlying Dementia to moderate degree; obtaining full history would be difficult from patient -for now, neurochecks as per ICU protocol -Delirium prec; avoid BDZ, asp prec -haldol PRN for delirium would be appropriate -restraints for selfprotection and dislodging devices CVS- -BP stable, HR stable -NSTEMI, peak trop 19->18 -EKGs reviewed -plan for conservative NSTEMI management; IV heparin/asa/plavix/statin -restart BB -BP control to reduced afterload -PRN NTG or Morphine as needed for any resp distress -hg stable -no signs of volume overload noted -Repeat TTE at some point to further eval LV function for WMA -IVF sparingly -lasix PRN if any resp distress or congestion -Titrate Pressors to Maintain MAP>65 Resp- -on oximask 5L; no resp distress noted -Lungs without sig rhales/wheeze -CXR ?bibasilar or more so left basal infiltrate -started on empiric IV abx -sputum culture if able -check urine strept and legionella -Noted epistaxis; seems to have stopped; would maintain nasal packing for now, no plan to remove given AC and DAPT therapy. will have ENT eval tomorrow. Once AC stopped, then can consider removal and assessement of bleeding. -?prednisone tx? chronic COPD? -Wean Fio2 to keep sat>92% -Bronchodilators PRN, Aspiration prec, Pulmonary Toilet ID- tmax 100.7, wbc 17->15. -CXR possible infiltrate -NSTEMI+ -multifactorial cause of elevated WBC and low grade fever without clear large infectious source; NSTEMI may cause these signs too -for now agree with IV abx zosyn (day#2) and vanco x1; folllow cultures GI- -awake, appears to be able to hold airway -start cardiac puree diet for now, advance as tolerated -GI prophylaxis Renal- -CKD3, CR baseline ~1.4-1.7; no sig change in Cr -making urine; K okay; no acidosis -follow urine output -strict I/O, replete to keep K>4, Mg>2 -fregoso as indicated Heme- hg stable, plt stable -IV heparin for ACS, follow protocol -DAPT for NSTEMI/CAD -monitor for bleeding Endo- Maintain BG<200, insulin protocol as needed Musculsk- pressure ulcer prophylaxis. Bedrest. Wounds- none Nutrition- cardiac diet trial DVT prophylaxis: SCDs, IV heparin GI prophylaxis: - Central Line:- Arterial Line:- Fregoso Cathetor: no Disposition: Patient requires Critical Care/ICU for encephalopathy, NSTEMI Patient Clinical Status: guarded, critical Code Status: full code [id number] Julio Rocha MD [employer] (Electronically Signed)
[2019-03-06 13:15] LABS: ABS Basophils 0 10^3/ul (0-0.2); ABS Eosinophils 0 10^3/ul (0-0.6); ABS Lymphocytes 0.4 10^3/ul (1.0-4.8); ABS Monocytes 0.4 10^3/ul (0-0.8); ABS Nucleated RBC 0 10^3/ul; Eosinophil % 0.1 %; Hematocrit 28 % (33-41); Hemoglobin 8.4 g/dL (12.0-16.0); Lymphocyte % 2.7 %; Mean Corpuscular HGB Conc 30 g/dL (31-36); Mean Corpuscular Hemoglobin 30 pg (27-31); Mean Corpuscular Volume 98 fL (80-97); Mean Platelet Volume 10.1 fL (7.4-10.4); Nucleated Red Blood Cells % 0; Platelet Count 141 10^3/uL (150-450); Red Blood Count 2.82 10^6 /uL (3.70-4.87); Red Cell Distribution Width 20 % (10.5-15); White Blood Count 14.9 10^3/uL (3.5-10.8)
[2019-03-06 13:45] LABS: Anion Gap 7 mmol/L (2-11); BUN/Creatinine Ratio 18.2 (8-20); Blood Urea Nitrogen 31 mg/dL (6-24); CO2 Carbon Dioxide 26 mmol/L (22-32); Calcium 8.2 mg/dL (8.6-10.3); Chloride 111 mmol/L (101-111); EGFR African American 34.8 (>60); EGFR Non-African American 28.8 (>60); Glucose 135 mg/dL (70-100); Magnesium 2.1 mg/dL (1.9-2.7); Phosphorus 3.8 mg/dL (2.5-5.0); Potassium 4.7 mmol/L (3.5-5.0); Sodium 144 mmol/L (135-145)
[2019-03-06 13:53] LABS: Troponin I 9.49 ng/mL (<0.04)
[2019-03-06] MEDS: Escitalopram * 10 MG TAB PO SCH (14:02)
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
--- NOTE | 2019-03-06 18:52 | ECHO ---
Patient: KEESHA DOTSON [facility] Rec#: [id number] : 1935 Date: 03/06/2019 Age: 83y Height: 157 cm / 61.8 in Weight: 54 kg / 119.0 lbs Sex: F BSA: 1.53 Room#: ICU 4 Admit Date#: 03/05/2019 Type: Inpatient Referring: Yaa Hicks Reading: Justina Isaacs MD Brim Edge Trimmer: Promise OrtizRDCS,RDMS Transthoracic Echocardiogram Indication: WI BP: 125/53 HR: 86 Rhythm: NSR Findings History: CAD, WI, CHF, AOV stenosis, HTN, HLD, PVD Technical Comments: The study was technically limited due to the patient's inability to lay in the left lateral decubitus position. Left Ventricle: The left ventricular chamber size is decreased. Moderate to severe concentric left ventricular hypertrophy is observed. Left ventricular systolic function is at the lower limits of normal. no focal wall motion abnormalities noted. The estimated ejection fraction is 45-50%. Abnormal left ventricular diastolic function is observed. The left ventricular diastolic filling pattern is consistent with elevated left ventricular end-diastolic pressure. Left Atrium: The left atrium is moderately dilated. Right Ventricle: The right ventricle is not well visualized. The right ventricular cavity size is normal. The right ventricular global systolic function is mildly to moderately reduced. Right Atrium: The right atrium is mildly dilated. Aortic Valve: The aortic valve is trileaflet. The aortic valve leaflets are mildly thickened. Systolic excursion of the aortic valve cusps is reduced.mildly to moderately reduced. The aortic valve leaflets appear mildly sclerotic. There is mild aortic regurgitation. There is moderate aortic stenosis. The mean gradient of the aortic valve is 30 mmHg. The aortic valve area, by peak velocities, is calculated at 0.7 cm2. The AOV accelT is 149.0 msec. Mitral Valve: Moderate mitral annular calcification present. Moderate mitral leaflet calcification is visualized. There is mild to moderate mitral stenosis. The mean gradient across the mitral valve is 10 mmHg. The mitral valve area, by pressure half time, is calculated at 2.5 cm2. Tricuspid Valve: The tricuspid valve leaflets are normal. There is mild to moderate tricuspid regurgitation. The right ventricular systolic pressure is estimated at 58 mmHg. There is evidence of moderate to severe pulmonary hypertension. Pulmonic Valve: There is no evidence of pulmonic valve thickening. There is a trace pulmonic regurgitation. Pericardium: There is no significant pericardial effusion. Aorta: The ascending aorta is not well visualized. The aortic arch is not well visualized. The aortic root is normal in size. Pulmonary Artery: The main pulmonary artery is not well visualized. Venous: The inferior vena cava appears normal in size. There is less than 50% respiratory change in the inferior vena cava dimension. Conclusions The study was technically limited due to the patient's inability to be optimally positioned during the study. Moderate to severe concentric left ventricular hypertrophy. Left ventricular systolic function is at the lower limits of normal, no focal wall motion abnormalities noted. The estimated ejection fraction is 45-50%. The left ventricular diastolic filling pattern is abnormal, elevated left ventricular end-diastolic pressure. The right ventricular global systolic function is mildly to moderately reduced. The aortic valve leaflets are mildly thickened. Systolic excursion of the aortic valve cusps is mildly to moderately reduced. There is mild aortic regurgitation. Gauging the degree of aortic stenosis is difficult, on visulal estimate appears mild to moderate, by gradients and peak velocity appears moderate to severe. Gradients and velocities can be increased by hypertrophy and metabolic states, clinical correlation recommended. The mean gradient of the aortic valve is 30 mmHg. DI 0.2-0.24, peak velocity across the AV is 4 m/s. Moderate mitral annular calcification present. There is mild to moderate mitral stenosis. The mean gradient across the mitral valve is 10 mmHg. The mitral valve area, by pressure half time, is calculated at 2.5 cm2. There is mild to moderate tricuspid regurgitation. There is evidence of moderate to severe pulmonary hypertension estimated at 58 mmHg. Compared with prior echo of 12/18/18, EF previously 35-40%, LVH stable, RV dysfunction has progressed from mild, the mean gradient across the AV has increased from 8 mmHg, prior NATAN 1.2-1.8 cm2. MR is stable, MS not significantly changed, prior mean gradient across MV was 7 mmHg, TR has increased, elevated PA pressure new. Measurements Name Value Normal Range RVIDd (AP) 2D 1.9 cm (0.9 - 2.6) RAd ISD 4CH 5.1 cm (3.4 - 4.9) RA (A4C)W 3.4 cm (2.9 - 4.6) IVSd (2D) 1.7 cm (0.6 - 1) LVPWd (2D) 1.9 cm (0.6 - 1) LVIDd (2D) 3.5 cm (3.6 - 5.4) LVIDs (2D) 2.3 cm - LV FS (2D) 36 % (25 - 45) Aortic Annulus 2 cm (1.4 - 2.6) Ao root diameter (2D) 2.6 cm (2.1 - 3.5) LA dimension (AP) 2D 4.8 cm (2.3 - 3.8) LAd ISD 4CH 5.4 cm (2.9 - 5.3) LA ISD 4CH W 4.3 cm (2.5 - 4.5) Name Value Normal Range MV E-wave Vmax 1.6 m/sec - MV deceleration time 187 msec - MV A-wave Vmax 2.2 m/sec - MV E:A ratio 0.7 ratio - LV septal e' Vmax 0.03 m/sec - LV lateral e' Vmax 0.03 m/sec - LV E:e' septal ratio 53 ratio - LV E:e' lateral ratio 53 ratio - Name Value Normal Range AV Vmax 4.2 m/sec - AV VTI 96 cm - AV peak gradient 72 mmHg - AV mean gradient 30 mmHg - LVOT diameter 1.9 cm - LVOT Vmax 1 m/sec - LVOT VTI 18.5 cm - LVOT peak gradient 4 mmHg - LVOT mean gradient 2 mmHg - DOI (VTI) 0.2 ratio - NATAN (continuity Vmax) 0.7 cm2 - NATAN (continuity VTI) 0.5 cm2 - Name Value Normal Range MV Vmax 2.3 m/sec - MV VTI 51 cm - MV peak gradient 21 mmHg - MV mean gradient 10 mmHg - MV PHT 89 msec - MVA (PHT) 2.5 cm2 - MVA (continuity VTI) 1 cm2 - Name Value Normal Range TR Vmax 3.7 m/sec - TR peak gradient 55 mmHg - RAP 3 mmHg - RVSP 58 mmHg - IVC diameter 2 cm - Name Value Normal Range PV Vmax 0.8 m/sec - PV peak gradient 2.6 mmHg -
[2019-03-06] MEDS ORDERED: Clopidogrel TAB* 75 MG PO SCH (21:00)
[2019-03-06] MEDS: Atorvastatin* 40 MG TAB PO SCH (21:04)
[2019-03-06] MEDS: Carvedilol TAB* 6.25 MG PO SCH (21:04)
[2019-03-06] MEDS: hydrALAZINE TAB* 25 MG PO SCH (21:04)
[2019-03-06] MEDS: Gabapentin CAP(*) 300 MG PO SCH (21:05)
[2019-03-07] MEDS: ZOSYN 3.375 GM Q12H per EXTENDED INFUSION IVPB SCH ×2 (01:32)
[2019-03-07] MEDS ORDERED: Heparin VIAL(*) 5000 UNITS/ML VIAL (FIVE THOUSAND) IV SCH (03:00)
[2019-03-07 05:13] LABS: ABS Basophils 0.1 10^3/ul (0-0.2); ABS Eosinophils 0.1 10^3/ul (0-0.6); ABS Lymphocytes 0.6 10^3/ul (1.0-4.8); ABS Monocytes 0.9 10^3/ul (0-0.8); ABS Neutrophils 12.7 10^3/ul (1.5-7.7); ABS Nucleated RBC 0 10^3/ul; Eosinophil % 0.4 %; Hematocrit 26 % (33-41); Hemoglobin 7.9 g/dL (12.0-16.0); Lymphocyte % 3.9 %; Mean Corpuscular HGB Conc 31 g/dL (31-36); Mean Corpuscular Hemoglobin 30 pg (27-31); Mean Corpuscular Volume 98 fL (80-97); Mean Platelet Volume 9.5 fL (7.4-10.4); Nucleated Red Blood Cells % 0; Platelet Count 150 10^3/uL (150-450); Red Blood Count 2.64 10^6 /uL (3.70-4.87); Red Cell Distribution Width 20 % (10.5-15); White Blood Count 14.3 10^3/uL (3.5-10.8)
[2019-03-07 05:30] LABS: BUN/Creatinine Ratio 21.3 (8-20); Calcium 8.3 mg/dL (8.6-10.3); EGFR African American 40.2 (>60); EGFR Non-African American 33.2 (>60); Phosphorus 2.9 mg/dL (2.5-5.0)
[2019-03-07] MEDS: Carvedilol TAB* 6.25 MG PO SCH ×2 (08:17→20:36)
[2019-03-07] MEDS: predniSONE TAB* 10 MG PO SCH (08:17)
[2019-03-07] MEDS: Magnesium Oxide TAB* 400 MG PO SCH (08:17)
[2019-03-07] MEDS: Amiodarone TAB* 200 MG PO SCH (08:17)
[2019-03-07] MEDS: Aspirin 81 mg CHEW TAB* 81 MG TAB.CHEW PO SCH (08:17)
[2019-03-07] MEDS: hydrALAZINE TAB* 25 MG PO SCH ×2 (08:18→20:36)
[2019-03-07] MEDS: Potassium Chlor TAB* 20 MEQ TAB.ER PO SCH (08:18)
[2019-03-07] MEDS: Escitalopram * 10 MG TAB PO SCH (08:18)
--- NOTE | 2019-03-07 10:08 | PN ---
Progress Note - Progress Note Date of Service: 03/07/19 Note: Progress Note -- Critical Care 24 hour events -stable overnight; BP stable -she is currently in bed, calm, off restraints, alert, answering some questions -some mild nasal bleed/oozing at times; nasal packing still in place -1:[address] for safety monitoring -tmax 100.0 Vitals: Vital Signs Temp 100.0 F 03/07/19 09:01 Pulse 97 03/07/19 09:01 Resp 19 03/07/19 09:01 BP 168/80 03/07/19 09:01 Pulse Ox 97 03/07/19 09:01 Intake & Output 03/06/19 03/07/19 03/07/19 18:59 06:59 18:59 Intake Total 1359 433 Output Total 0 836 90 Balance 1359 -403 -90 Weight 59.493 kg Intake: IV Fluids 1104 91 NS + abx 604 91 IVPB 215 ABX - ZOSYN 215 Medicated IV 155 127 heparin 155 127 Oral 100 Output: Urine 0 Fregoso 836 90 Other: Estimated Void Large # Voids 1 O2/Vent: oximask 6L (no NC due to packing) Infusions: IV heparin Current Medications: Acetaminophen (Tylenol Tab*) 975 mg PO Q8H PRN PRN Reason: FEVER/PAIN Amiodarone HCl (Cordarone Tab*) 50 mg PO DAILY [facility] Last Admin: 03/07/19 08:17 Dose: 50 mg Aspirin (Aspirin 81 Mg Chew Tab*) 81 mg PO DAILY [facility] Last Admin: 03/07/19 08:17 Dose: 81 mg Atorvastatin Calcium (Lipitor*) 40 mg PO BEDTIME [facility] Last Admin: 03/06/19 21:04 Dose: 40 mg Carvedilol (Coreg Tab*) 6.25 mg PO BID [facility] Last Admin: 03/07/19 08:17 Dose: 6.25 mg Clopidogrel Bisulfate (Plavix Tab*) 75 mg PO BEDTIME [facility] Last Admin: 03/06/19 21:04 Dose: 75 mg Escitalopram Oxalate (Lexapro *) 10 mg PO QAM [facility] Last Admin: 03/07/19 08:18 Dose: 10 mg Gabapentin (Neurontin Cap(*)) 600 mg PO BEDTIME [facility] Last Admin: 03/06/19 21:05 Dose: 600 mg Heparin Sodium (Porcine) (Heparin Vial(*)) 0 units IV .PER PROTOCOL [facility] Last Admin: 03/07/19 03:11 Dose: 1,650 units Hydralazine HCl (Apresoline Tab*) 50 mg PO BID [facility] Piperacillin Sod/Tazobactam (Sod 3.375 gm/ Sodium Chloride) 100 mls @ 25 mls/ hr IVPB Q8H [facility] Dextrose (D5w 1000 Ml Bag*) 1,000 mls @ 75 mls/hr IV PER RATE [facility] Stop: 03/07/19 22:59 Magnesium Oxide (Magox 400 Tab*) 400 mg PO DAILY [facility] Last Admin: 03/07/19 08:17 Dose: 400 mg Nitroglycerin (Nitroglycerin Tab 0.4 Mg*) 0.4 mg SL Q5M PRN PRN Reason: PAIN - CHEST Pharmacy Consult (Zosyn Per Pharmacy*) 1 note FOLLOW UP .ZOSYN PER PHARMACY [facility] Potassium Chloride (Klor-Con Liquid*) 20 meq PO DAILY [facility] Prednisone (Deltasone Tab*) 10 mg PO DAILY [facility] Last Admin: 03/07/19 08:17 Dose: 10 mg Physical Exam: Constitutional: awake, alert, confused , no distress, no diaphoresis Head: normocephalic, atraumatic Eyes: no pallor, no icterus ENT: moist mucous membranes; bilateral nasal packing+ with old clotted blood noted only Neck: soft, supple, no jvd, no stridor CVS: normal rate, regular, no murmur Resp: bilateral air entry, no rhales, no wheeze, no rhonchi, no acc muscle use Abdomen/GI: soft, nontender, nondistended, BS+ Ext/Msk: warm, pulses+, no edema Skin: intact, warm Neuro: awake, alert, orientedx1-2, confused, moving all extremities, no gross focal deficit Labs: Laboratory Results - last 24 hr 03/06/19 03/06/19 03/06/19 12:25 12:25 12:25 WBC 14.9 H RBC 2.82 L Hgb 8.4 L Hct 28 L MCV 98 H MCH 30 MCHC 30 L RDW 20 H Plt Count 141 L MPV 10.1 Neut % (Auto) 94.1 Lymph % (Auto) 2.7 [place] % (Auto) 3.0 Eos % (Auto) 0.1 Baso % (Auto) 0.1 Absolute Neuts (auto) 14.0 H Absolute Lymphs (auto) 0.4 L Absolute Monos (auto) 0.4 Absolute Eos (auto) 0 Absolute Basos (auto) 0 Absolute Nucleated RBC 0 Nucleated RBC % 0 APTT 77.1 H Sodium 144 Potassium 4.7 Chloride 111 Carbon Dioxide 26 Anion Gap 7 BUN 31 H Creatinine 1.70 H Est GFR ( Amer) 34.8 Est GFR (Non-Af Amer) 28.8 BUN/Creatinine Ratio 18.2 Glucose 135 H Calcium 8.2 L Phosphorus 3.8 Magnesium 2.1 Troponin I 9.49 H* 03/06/19 03/07/19 03/07/19 19:44 02:30 05:05 WBC 14.3 H RBC 2.64 L Hgb 7.9 L Hct 26 L MCV 98 H MCH 30 MCHC 31 RDW 20 H Plt Count 150 MPV 9.5 Neut % (Auto) 88.9 Lymph % (Auto) 3.9 [place] % (Auto) 6.1 Eos % (Auto) 0.4 Baso % (Auto) 0.7 Absolute Neuts (auto) 12.7 H Absolute Lymphs (auto) 0.6 L Absolute Monos (auto) 0.9 H Absolute Eos (auto) 0.1 Absolute Basos (auto) 0.1 Absolute Nucleated RBC 0 Nucleated RBC % 0 APTT 79.8 H 42.1 H Sodium Potassium Chloride Carbon Dioxide Anion Gap BUN Creatinine Est GFR ( Amer) Est GFR (Non-Af Amer) BUN/Creatinine Ratio Glucose Calcium Phosphorus Magnesium Troponin I 03/07/19 03/07/19 05:05 09:00 WBC RBC Hgb Hct MCV MCH MCHC RDW Plt Count MPV Neut % (Auto) Lymph % (Auto) [place] % (Auto) Eos % (Auto) Baso % (Auto) Absolute Neuts (auto) Absolute Lymphs (auto) Absolute Monos (auto) Absolute Eos (auto) Absolute Basos (auto) Absolute Nucleated RBC Nucleated RBC % APTT 55.8 H Sodium 146 H Potassium 4.0 Chloride 114 H Carbon Dioxide 29 Anion Gap 3 BUN 32 H Creatinine 1.50 H Est GFR ( Amer) 40.2 Est GFR (Non-Af Amer) 33.2 BUN/Creatinine Ratio 21.3 H Glucose 111 H Calcium 8.3 L Phosphorus 2.9 Magnesium 2.0 Troponin I Imaging: cxr 03/05- mild congestion cxr 03/06 - mild congestion, possible left lower lobe infiltrate CT brain 03/05 - no acute process Assessment: 83y F w/pmhx of Dementia, Anemia, CAD s/p PCI, Chronic Moderate LV systoic dysfxn with mod , mild/mod AI, mild-mod MR, Mod MS, h/o VT, HLD, HTN, PVD s/p left fem-pop, CKD3, Carotid artery disease with endartectomy 2013 Left and Right 2017, h/o PEG, h/o epistaxis in past; Patient presented on 03/04 to ER with complaints of epistaxis, was treated and discharged home, was given some morphine IV for pain. On 03/06 patient was found by on floor at home, suspected she fell, but no LOC noted. Patient stated she did not get dizzy or pass out. She appeared very weak to and unable to stand on her own. She did not have apparent respiratory distress/fever/abd pain, no chest pain stated by patient to or seemed like she was clutching chest. He called PMD because she was confused, very weak, not acting herself and he was advised to take her to the ER. She was brought to ER for weakness, confusion, found to be tachycardic, tachypneic, BP elevated, tmax 100.7. She was confused, appeared lethargic. Initially thought to be possible narcotics causing this and was given narcan by ER, with some improvement in mental status as documented. CXR demonstrated some basal atelectasis +/- infiltrates. Labs demonstrated elevated troponin of 6, without new overt EKG Changes, but a question of ST changes was there. Cardiology consulted and they though this was LVH with strain pattern, probably better than or similar to prior EKGs she has had. They discussed with and decision on both sides is that she has comorbidities and would not do well with another cardiac cath, so it was deferred for conservative medical management, so she was started on IV heparin/asa/plavix, as well as IV abx for possible infection. -Metabolic encephalopathy on underlying Dementia -NSTEMI -possible pneumonia, r/o sepsis -Epistaxis CKD3 Chronic Mod LV systolic dysfxn mod , AI, MR, MS PVD Plan: Neuro- -unclear etiology of change in mental status; has underlying NSTEMI jana also has SIRS with possible pneumonia -improved and calmer now; no antipsychotics required -off restraints now -03/05 CT brain without acute process -underlying Dementia to moderate degree; obtaining full history would be difficult from patient -neurochecks q4h -Delirium prec; avoid BDZ, asp prec -haldol PRN for delirium would be appropriate CVS- -BP stable, HR stable -cont coreg 6.25; incr hydralazine 50mg po tid -NSTEMI, trop downtrending -hg slight drop noted -possible d/c heparin today; cont DAPT -conservative NSTEMI management; IV heparin/asa/plavix/statin -PRN NTG or Morphine as needed for any resp distress -no signs of volume overload noted -TTE - lvef 40-45%, similar previous valvular abn, unchanged -IVF d5w for hypernatremia -Maintain MAP>65 Resp- -on oximask 5-6L; no resp distress noted -Lungs without sig rhales/wheeze -CXR ?bibasilar or more so left basal infiltrate -empiric IV abx -sputum culture if able -epistaxis with nasal rockets in place; cont for now, no plan for remomval till heparin off; some intermittent oozing at times ovenright, but mostly clotted blood it appears now -?prednisone tx? chronic COPD? -Wean Fio2 to keep sat>92% -Bronchodilators PRN, Aspiration prec, Pulmonary Toilet ID- tmax 100.2, wbc 17->15-14 -CXR possible infiltrate -NSTEMI+ -multifactorial cause of elevated WBC and low grade fever without clear large infectious source; NSTEMI may cause these signs too -for now cont with IV abx zosyn (day#3) ; reassess tomorrow, may be able to d/ c abx if no infection noted GI- -cardiac puree diet for now, advance as tolerated -GI prophylaxis Renal- -CKD3, CR baseline ~1.4-1.7; no sig change in Cr -making urine; K okay; no acidosis -follow urine output -strict I/O, replete to keep K>4, Mg>2 -fregoso as indicated Heme- hg slight drop; plt stable -heme occult+; no gross bleeding, if noted dark stools then will stop IV hpeairn -check h/h later today -IV heparin for ACS, follow protocol -DAPT for NSTEMI/CAD -monitor for bleeding Endo- Maintain BG<200, insulin protocol as needed Musculsk- pressure ulcer prophylaxis. Bedrest. Wounds- none Nutrition- cardiac diet trial DVT prophylaxis: SCDs, IV heparin GI prophylaxis: - Central Line:- Arterial Line:- Fregoso Cathetor: no Disposition: Patient requires Critical Care/ICU for NSTEMI ; improving; consider downgrade monitored bed goals of care to be address with family by primary team, multiple comorbidities , no surgery or cath wanted by family; would be appropriate for palliative care evaluation, home services Critical care will follow as needed, will allow primary team to manage ongoign issues, she has maintained some stability in past 24 hours Patient Clinical Status: guarded Code Status: full code [id number] Julio Rocha MD Psychologist [employer] (Electronically Signed)
--- NOTE | 2019-03-07 10:32 | PN ---
Subjective Date of Service: 03/07/19 - NSTEMI, Epistaxis on plavix Interval History: Patient in bed with sitter at bedside. She does not offer complaints however, she has dementia. She is alert to self but not place or time. Medications Active Medications: Acetaminophen (Tylenol Tab*) 975 mg PO Q8H PRN PRN Reason: FEVER/PAIN Amiodarone HCl (Cordarone Tab*) 50 mg PO DAILY [facility] Last Admin: 03/07/19 08:17 Dose: 50 mg Aspirin (Aspirin 81 Mg Chew Tab*) 81 mg PO DAILY [facility] Last Admin: 03/07/19 08:17 Dose: 81 mg Atorvastatin Calcium (Lipitor*) 40 mg PO BEDTIME [facility] Last Admin: 03/06/19 21:04 Dose: 40 mg Carvedilol (Coreg Tab*) 6.25 mg PO BID [facility] Last Admin: 03/07/19 08:17 Dose: 6.25 mg Clopidogrel Bisulfate (Plavix Tab*) 75 mg PO BEDTIME [facility] Last Admin: 03/06/19 21:04 Dose: 75 mg Escitalopram Oxalate (Lexapro *) 10 mg PO QAM [facility] Last Admin: 03/07/19 08:18 Dose: 10 mg Gabapentin (Neurontin Cap(*)) 600 mg PO BEDTIME [facility] Last Admin: 03/06/19 21:05 Dose: 600 mg Heparin Sodium (Porcine) (Heparin Vial(*)) 0 units IV .PER PROTOCOL [facility] Last Admin: 03/07/19 03:11 Dose: 1,650 units Hydralazine HCl (Apresoline Tab*) 50 mg PO BID [facility] Heparin Sodium/Dextrose (Heparin Drip 25,000 Units(*)) 25,000 units in 500 mls @ 0 mls/hr IV PER RATE [facility]; Protocol Last Admin: 03/05/19 23:24 Dose: 13 mls/hr Piperacillin Sod/Tazobactam (Sod 3.375 gm/ Sodium Chloride) 100 mls @ 25 mls/ hr IVPB Q8H [facility] Dextrose (D5w 1000 Ml Bag*) 1,000 mls @ 75 mls/hr IV PER RATE [facility] Stop: 03/07/19 22:59 Magnesium Oxide (Magox 400 Tab*) 400 mg PO DAILY [facility] Last Admin: 03/07/19 08:17 Dose: 400 mg Nitroglycerin (Nitroglycerin Tab 0.4 Mg*) 0.4 mg SL Q5M PRN PRN Reason: PAIN - CHEST Pharmacy Consult (Zosyn Per Pharmacy*) 1 note FOLLOW UP .ZOSYN PER PHARMACY [facility] Potassium Chloride (Klor-Con Liquid*) 20 meq PO DAILY [facility] Prednisone (Deltasone Tab*) 10 mg PO DAILY [facility] Last Admin: 03/07/19 08:17 Dose: 10 mg Objective Vital Signs: Temp Pulse Resp BP Pulse Ox 100.0 F 97 19 168/80 97 03/07/19 09:01 03/07/19 09:01 03/07/19 09:01 03/07/19 09:01 03/07/19 09:01 Oxygen Devices in Use Now: Simple Face Mask Appearance: lying in bed, confused, nad Eyes: No Scleral Icterus Ears/Nose/Mouth/Throat: Mucous Membranes Moist, - - nares packed Neck: NL Appearance and Movements; NL JVP, Trachea Midline, No Thyroid Enlargement, Masses Respiratory: Symmetrical Chest Expansion and Respiratory Effort, Clear to Auscultation Cardiovascular: No Edema, - - normal S1, S2 + mitral and aortic murmur Extremities: No Edema Neurological: - - alert to self Lines/Tubes/Other Access: Clean, Dry and Intact Peripheral IV Laboratory Results: 03/07/19 05:05 03/07/19 05:05 APTT 55.8 seconds (26.0-36.3) H 03/07/19 09:00 Total Bilirubin 0.60 mg/dL (0.2-1.0) 03/06/19 05:15 AST TNP 03/06/19 06:15 ALT 30 U/L (7-52) 03/06/19 05:15 Alkaline Phosphatase 50 U/L (34-104) 03/06/19 05:15 Total Protein 5.3 g/dL (6.4-8.9) L 03/06/19 05:15 Albumin 3.0 g/dL (3.2-5.2) L 03/06/19 05:15 Globulin 2.3 g/dL (2-4) 03/06/19 05:15 Albumin/Globulin Ratio 1.3 (1-3) 03/06/19 05:15 03/05/19 03/05/19 03/05/19 14:52 18:43 20:40 Troponin I 6.36 H* 12.97 H* 14.62 H* 03/06/19 03/06/19 03/06/19 00:35 05:15 12:25 Troponin I 19.55 H* 18.84 H* 9.49 H* Laboratory Results - last 24 hr 03/06/19 03/06/19 03/06/19 12:25 12:25 12:25 WBC 14.9 H RBC 2.82 L Hgb 8.4 L Hct 28 L MCV 98 H MCH 30 MCHC 30 L RDW 20 H Plt Count 141 L MPV 10.1 Neut % (Auto) 94.1 Lymph % (Auto) 2.7 [place] % (Auto) 3.0 Eos % (Auto) 0.1 Baso % (Auto) 0.1 Absolute Neuts (auto) 14.0 H Absolute Lymphs (auto) 0.4 L Absolute Monos (auto) 0.4 Absolute Eos (auto) 0 Absolute Basos (auto) 0 Absolute Nucleated RBC 0 Nucleated RBC % 0 APTT 77.1 H Sodium 144 Potassium 4.7 Chloride 111 Carbon Dioxide 26 Anion Gap 7 BUN 31 H Creatinine 1.70 H Est GFR ( Amer) 34.8 Est GFR (Non-Af Amer) 28.8 BUN/Creatinine Ratio 18.2 Glucose 135 H Calcium 8.2 L Phosphorus 3.8 Magnesium 2.1 Troponin I 9.49 H* 03/06/19 03/07/19 03/07/19 19:44 02:30 05:05 WBC 14.3 H RBC 2.64 L Hgb 7.9 L Hct 26 L MCV 98 H MCH 30 MCHC 31 RDW 20 H Plt Count 150 MPV 9.5 Neut % (Auto) 88.9 Lymph % (Auto) 3.9 [place] % (Auto) 6.1 Eos % (Auto) 0.4 Baso % (Auto) 0.7 Absolute Neuts (auto) 12.7 H Absolute Lymphs (auto) 0.6 L Absolute Monos (auto) 0.9 H Absolute Eos (auto) 0.1 Absolute Basos (auto) 0.1 Absolute Nucleated RBC 0 Nucleated RBC % 0 APTT 79.8 H 42.1 H Sodium Potassium Chloride Carbon Dioxide Anion Gap BUN Creatinine Est GFR ( Amer) Est GFR (Non-Af Amer) BUN/Creatinine Ratio Glucose Calcium Phosphorus Magnesium Troponin I 03/07/19 03/07/19 05:05 09:00 WBC RBC Hgb Hct MCV MCH MCHC RDW Plt Count MPV Neut % (Auto) Lymph % (Auto) [place] % (Auto) Eos % (Auto) Baso % (Auto) Absolute Neuts (auto) Absolute Lymphs (auto) Absolute Monos (auto) Absolute Eos (auto) Absolute Basos (auto) Absolute Nucleated RBC Nucleated RBC % APTT 55.8 H Sodium 146 H Potassium 4.0 Chloride 114 H Carbon Dioxide 29 Anion Gap 3 BUN 32 H Creatinine 1.50 H Est GFR ( Amer) 40.2 Est GFR (Non-Af Amer) 33.2 BUN/Creatinine Ratio 21.3 H Glucose 111 H Calcium 8.3 L Phosphorus 2.9 Magnesium 2.0 Troponin I Diagnostic Imaging: Echo 03/06/2019; LVEF 45-50% with moderate to severe LVH, no focal WMA. Moderate- severe , Mild to moderate MS, modeat to severe pulm HTN per report. EKG Data: 03/05/2019; NSR rate 105, known anterior early repolarization, Assessment/Plan #1 NSTEMI; troponin peaked on 03/06/2019 at 19.5. 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 In the past Dr. Moody had offered LHC pre AVR/MVR however, the patient opted for conservative treatment. She is on IV heparin, Plavix and ASA therapy. Given troponin has peaked and Hct continues to trend down we will d/c IV heparin. Will d/c ASA and plavix due to ongoing anemia with now melena. however, we may need to reevaluate this if Hct does not improve. I spoke with Dawit her whom I am very familiar with and he is interested in Palliative care consulation. He was exploring palliative care a week ago in the office when I saw him. She has vascular dementia, moderate to severe , MS, CAD, ICA disease. HE will discuss CPR with palliative care when the patient opted for CPR I do not believe she understood how traumatic it can be. #2 Ongoing anemia, Hct 26 today. Heme + stool with new finding of melena today. Recommend transfusing to Hgb 8. Heparin on hold. Defer to primary team however, palliative care is to see patient #3 moderate to severe ; peak gradient 72, mean-30. Avoid afterload reduction, volume retraction. Patient to get PRBCs. #4 HF mr EF; Compensated on exam. monitor fluid status post transfusion. #5 Disposition, pending course. Palliative/hospice provider to see patient. Patient's Dawit will be here around 1pm. IF melena and anemia improves would recommend DAPT ( ASA/Plavix) for medical treatment of NSTEMI however, will re eval goals of care after DR. Zamora consultation. D/w Dr. Balbuena who agrees with plan of care Attending: Saud Balbuena
[2019-03-07] MEDS: ZOSYN 3.375 GM Q8H IVPB SCH ×4 (10:52→18:04)
[2019-03-07] MEDS ORDERED: D5W 1000 ML BAG* 1,000 ML IV SCH (11:00)
[2019-03-07] MEDS: Pantoprazole IV* 40 MG IV ONE ×2 (12:30→15:32)
[2019-03-07] MEDS: Potassium Chloride LIQUID* 20 MEQ PACKET PO SCH (12:41)
[2019-03-07] MEDS: Pantoprazole* 80 mg IN NS 80 MG/250 ML BAG IVPB SCH ×2 (12:42→22:31)
[2019-03-07 13:18] LABS: ABS Basophils 0 10^3/ul (0-0.2); ABS Eosinophils 0 10^3/ul (0-0.6); ABS Lymphocytes 0.3 10^3/ul (1.0-4.8); ABS Monocytes 0.5 10^3/ul (0-0.8); ABS Neutrophils 15.7 10^3/ul (1.5-7.7); ABS Nucleated RBC 0 10^3/ul; Eosinophil % 0.2 %; Hematocrit 27 % (33-41); Hemoglobin 8.2 g/dL (12.0-16.0); Lymphocyte % 1.6 %; Mean Corpuscular HGB Conc 31 g/dL (31-36); Mean Corpuscular Hemoglobin 30 pg (27-31); Mean Corpuscular Volume 99 fL (80-97); Mean Platelet Volume 10.3 fL (7.4-10.4); Nucleated Red Blood Cells % 0; Platelet Count 163 10^3/uL (150-450); Red Blood Count 2.72 10^6 /uL (3.70-4.87); Red Cell Distribution Width 20 % (10.5-15); White Blood Count 16.5 10^3/uL (3.5-10.8)
--- NOTE | 2019-03-07 14:35 | PN ---
Subjective Past Medical History: Unchanged from Admission Objective Active Medications: Acetaminophen (Tylenol Tab*) 975 mg PO Q8H PRN PRN Reason: FEVER/PAIN Amiodarone HCl (Cordarone Tab*) 50 mg PO DAILY [facility] Last Admin: 03/07/19 08:17 Dose: 50 mg Aspirin (Aspirin 81 Mg Chew Tab*) 81 mg PO DAILY [facility] Last Admin: 03/07/19 08:17 Dose: 81 mg Atorvastatin Calcium (Lipitor*) 40 mg PO BEDTIME [facility] Last Admin: 03/06/19 21:04 Dose: 40 mg Carvedilol (Coreg Tab*) 6.25 mg PO BID [facility] Last Admin: 03/07/19 08:17 Dose: 6.25 mg Clopidogrel Bisulfate (Plavix Tab*) 75 mg PO BEDTIME [facility] Last Admin: 03/06/19 21:04 Dose: 75 mg Escitalopram Oxalate (Lexapro *) 10 mg PO QAM [facility] Last Admin: 03/07/19 08:18 Dose: 10 mg Gabapentin (Neurontin Cap(*)) 600 mg PO BEDTIME [facility] Last Admin: 03/06/19 21:05 Dose: 600 mg Hydralazine HCl (Apresoline Tab*) 50 mg PO BID [facility] Piperacillin Sod/Tazobactam (Sod 3.375 gm/ Sodium Chloride) 100 mls @ 25 mls/ hr IVPB Q8H [facility] Last Admin: 03/07/19 10:52 Dose: 25 mls/hr Dextrose (D5w 1000 Ml Bag*) 1,000 mls @ 75 mls/hr IV PER RATE [facility] Stop: 03/07/19 22:59 Last Admin: 03/07/19 10:58 Dose: 75 mls/hr Pantoprazole Sodium (Protonix Iv Bag*) 80 mg in 250 mls @ 25 mls/hr IVPB Q10H [facility] Last Admin: 03/07/19 12:42 Dose: 25 mls/hr Magnesium Oxide (Magox 400 Tab*) 400 mg PO DAILY [facility] Last Admin: 03/07/19 08:17 Dose: 400 mg Nitroglycerin (Nitroglycerin Tab 0.4 Mg*) 0.4 mg SL Q5M PRN PRN Reason: PAIN - CHEST Pharmacy Consult (Zosyn Per Pharmacy*) 1 note FOLLOW UP .ZOSYN PER PHARMACY [facility] Potassium Chloride (Klor-Con Liquid*) 20 meq PO DAILY [facility] Last Admin: 03/07/19 12:41 Dose: 20 meq Prednisone (Deltasone Tab*) 10 mg PO DAILY [facility] Last Admin: 03/07/19 08:17 Dose: 10 mg Vital Signs - 8 hr 03/07/19 03/07/19 03/07/19 07:00 08:00 08:01 Temperature 100.0 F 100.0 F 100.0 F Pulse Rate 99 100 103 Respiratory 24 22 24 Rate Blood Pressure 129/98 189/98 (mmHg) O2 Sat by Pulse 100 99 99 Oximetry 03/07/19 03/07/19 03/07/19 09:00 09:01 10:00 Temperature 100.0 F 100.0 F 100.2 F Pulse Rate 101 97 91 Respiratory 19 19 25 Rate Blood Pressure 168/80 (mmHg) O2 Sat by Pulse 95 97 100 Oximetry 03/07/19 03/07/19 03/07/19 10:01 11:00 12:00 Temperature 100.2 F 99.9 F 100.0 F Pulse Rate 88 97 96 Respiratory 24 21 16 Rate Blood Pressure 133/62 162/74 177/78 (mmHg) O2 Sat by Pulse 100 97 99 Oximetry 03/07/19 03/07/19 03/07/19 13:00 13:01 14:00 Temperature 99.7 F 99.7 F 99.7 F Pulse Rate 96 96 102 Respiratory 28 26 25 Rate Blood Pressure 157/63 (mmHg) O2 Sat by Pulse 98 98 98 Oximetry 03/07/19 14:01 Temperature 99.9 F Pulse Rate 104 Respiratory 18 Rate Blood Pressure 149/75 (mmHg) O2 Sat by Pulse 99 Oximetry Oxygen Devices in Use Now: Simple Face Mask Result Diagrams: 03/07/19 13:00 03/07/19 05:05 Microbiology and Other Data: Microbiology 03/06/19 00:30 Nasal Screen MRSA (PCR) - Final Nasal Mrsa Detected Assess/Plan/Problems-Billing Assessment: 83 year old female was in the ER 24 hrs prior to her admission for epistaxis that required intranasal packing, now present NSTEMI and bilateral pneumonaie that require heparin drip and Zosyn - Patient Problems (1) Non-ST elevated myocardial infarction Current Visit: Yes Status: Acute Code(s): I21.4 - NON-ST ELEVATION (NSTEMI) MYOCARDIAL INFARCTION SNOMED Code(s): 94486749 Comment: - Seen by cardiology, Troponin peaked at 19.55 - There has been discussion with the and cardiolgoy this morning. He did express to them his interest with paliative care consult. I did not catch the myself today - Off all anticoagulations (Heparin Drip, Aspirin 81 mg daily and plavix) - Continue Carvedilol 3.125 mg bid (2) Pneumonia Current Visit: Yes Status: Acute Code(s): J18.9 - PNEUMONIA, UNSPECIFIED ORGANISM SNOMED Code(s): 452216705 Comment: - Continue zosyn day # 3 (3) Acute delirium Current Visit: Yes Status: Acute Code(s): R41.0 - DISORIENTATION, UNSPECIFIED SNOMED Code(s): 9170182 Comment: - was very confused yesterday 03/06/19. Better today 03/07/19 - She did not require any sedations today (4) Epistaxis Current Visit: Yes Status: Acute Code(s): R04.0 - EPISTAXIS SNOMED Code(s) : 179553209 Comment: - continue with nasal rocket - D/c 24-48 hrs that the heparin drip is off (5) Anemia Current Visit: No Status: Acute Priority: High Onset Date: 03/12/15 Code (s): D64.9 - ANEMIA, UNSPECIFIED SNOMED Code(s): 063005431 Comment: - Mixed chronic and blood loss from (epistaxsis) which could have Melena. - Off the heparin drip and conservative treatment and prn transfusion - I appreciate Site Operations Manager input. Started already on protonix drip and GI consulted (6) DVT prophylaxis Current Visit: No Status: Acute Code(s): RIW5006 - SNOMED Code(s): 722865783 Comment: - Off heparin drip will place on SCD while off anticoagulations
--- NOTE | 2019-03-07 16:23 | CONSULT ---
Palliative / Hospice Consult Ordering Provider: Leticia Sam - PCPAll Referal Reason: Goals of care - Subjective Code Status: Full Code Advance Directives Location: In Chart - History or Present Illness History or Present Illness: 83 yo female with mild dementia presents to ER with AMS, generalized weakness s/ p fall. PMH is significant for HTN, CAD s/p PCI (last cath 2013 circ 50%, RCA 30 %, distal 40%), h/o vtach with cardiac arrest, CKD stage 3, hypercholesterolemia , iron def anemia, osteoarthritis, PMR, PVD, subclavian steal syndrome, ? stroke secondary to endarterectomy(had g-tube because affected swallowing), frequent nosebleeds and mod . 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 He reports that pt takes care of all her ADLs and is continent of bladder and bowel. ECHO EF 45-50% , mod , mild mod MS & TR, brain CT no acute change, chronic small vessel ischemic changes, CXR hyperinflation with mild pulmonary interstitial edema. EKG NSR ant ST elevation. H/H 7.9/26, BUn/Cr 32/1.5 egfr 33.2, Ca 8.3, tprot 5.3 , alb 3.0, troponin 9.49 with high of 19.55. Pt has had several ER visits and hospitalizations in the last year. Currently pt is being treated for VT medical management no cath per pt, nose bleed pack in place now with melena. All history is from medical records and family pt is not awake enough to contribute. Pt has had 2 stays at [facility], [facility] for rehab and went back to her home. Also had a GI work up in past with EGD and colonoscopy which was negative was unable to swallow the capsule camera. Lab Values: Abnormal Lab Results 03/06/19 03/07/19 03/07/19 19:44 02:30 05:05 WBC 14.3 H RBC 2.64 L Hgb 7.9 L Hct 26 L MCV 98 H MCH 30 MCHC 31 RDW 20 H Plt Count 150 MPV 9.5 Neut % (Auto) 88.9 Lymph % (Auto) 3.9 [place] % (Auto) 6.1 Eos % (Auto) 0.4 Baso % (Auto) 0.7 Absolute Neuts (auto) 12.7 H Absolute Lymphs (auto) 0.6 L Absolute Monos (auto) 0.9 H Absolute Eos (auto) 0.1 Absolute Basos (auto) 0.1 Absolute Nucleated RBC 0 Nucleated RBC % 0 APTT 79.8 H 42.1 H Sodium Potassium Chloride Carbon Dioxide Anion Gap BUN Creatinine Est GFR ( Amer) Est GFR (Non-Af Amer) BUN/Creatinine Ratio Glucose Calcium Phosphorus Magnesium Blood Type Antibody Screen 03/07/19 03/07/19 03/07/19 05:05 09:00 13:00 WBC RBC Hgb Hct MCV MCH MCHC RDW Plt Count MPV Neut % (Auto) Lymph % (Auto) [place] % (Auto) Eos % (Auto) Baso % (Auto) Absolute Neuts (auto) Absolute Lymphs (auto) Absolute Monos (auto) Absolute Eos (auto) Absolute Basos (auto) Absolute Nucleated RBC Nucleated RBC % APTT 55.8 H Sodium 146 H Potassium 4.0 Chloride 114 H Carbon Dioxide 29 Anion Gap 3 BUN 32 H Creatinine 1.50 H Est GFR ( Amer) 40.2 Est GFR (Non-Af Amer) 33.2 BUN/Creatinine Ratio 21.3 H Glucose 111 H Calcium 8.3 L Phosphorus 2.9 Magnesium 2.0 Blood Type O Positive Antibody Screen Negative 03/07/19 13:00 WBC 16.5 H RBC 2.72 L Hgb 8.2 L Hct 27 L MCV 99 H MCH 30 MCHC 31 RDW 20 H Plt Count 163 MPV 10.3 Neut % (Auto) 95.1 Lymph % (Auto) 1.6 [place] % (Auto) 2.8 Eos % (Auto) 0.2 Baso % (Auto) 0.3 Absolute Neuts (auto) 15.7 H Absolute Lymphs (auto) 0.3 L Absolute Monos (auto) 0.5 Absolute Eos (auto) 0 Absolute Basos (auto) 0 Absolute Nucleated RBC 0 Nucleated RBC % 0 APTT Sodium Potassium Chloride Carbon Dioxide Anion Gap BUN Creatinine Est GFR ( Amer) Est GFR (Non-Af Amer) BUN/Creatinine Ratio Glucose Calcium Phosphorus Magnesium Blood Type Antibody Screen Laboratory Last Values WBC 16.5 10^3/uL (3.5-10.8) H 03/07/19 13:00 RBC 2.72 10^6 /uL (3.70-4.87) L 03/07/19 13:00 Hgb 8.2 g/dL (12.0-16.0) L 03/07/19 13:00 Hct 27 % (33-41) L 03/07/19 13:00 MCV 99 fL (80-97) H 03/07/19 13:00 MCH 30 pg (27-31) 03/07/19 13:00 MCHC 31 g/dL (31-36) 03/07/19 13:00 RDW 20 % (10.5-15) H 03/07/19 13:00 Plt Count 163 10^3/uL (150-450) 03/07/19 13:00 MPV 10.3 fL (7.4-10.4) 03/07/19 13:00 Neut % (Auto) 95.1 % 03/07/19 13:00 Lymph % (Auto) 1.6 % 03/07/19 13:00 [place] % (Auto) 2.8 % 03/07/19 13:00 Eos % (Auto) 0.2 % 03/07/19 13:00 Baso % (Auto) 0.3 % 03/07/19 13:00 Absolute Neuts (auto) 15.7 10^3/ul (1.5-7.7) H 03/07/19 13:00 Absolute Lymphs (auto) 0.3 10^3/ul (1.0-4.8) L 03/07/19 13:00 Absolute Monos (auto) 0.5 10^3/ul (0-0.8) 03/07/19 13:00 Absolute Eos (auto) 0 10^3/ul (0-0.6) 03/07/19 13:00 Absolute Basos (auto) 0 10^3/ul (0-0.2) 03/07/19 13:00 Absolute Nucleated RBC 0 10^3/ul 03/07/19 13:00 Nucleated RBC % 0 03/07/19 13:00 APTT 55.8 seconds (26.0-36.3) H 03/07/19 09:00 ABG pH 7.39 (7.35-7.45) 03/05/19 14:37 ABG pCO2 44 mmHg (35-45) 03/05/19 14:37 ABG pO2 123 mmHg (80-100) H 03/05/19 14:37 ABG HCO3 25.9 mmol/L (19-31) 03/05/19 14:37 ABG O2 Saturation 99.9 % (94.0-98.0) H 03/05/19 14:37 ABG Base Excess 1.2 mmol/L (-2.0-2.0) 03/05/19 14:37 Sodium 146 mmol/L (135-145) H 03/07/19 05:05 Potassium 4.0 mmol/L (3.5-5.0) 03/07/19 05:05 Chloride 114 mmol/L (101-111) H 03/07/19 05:05 Carbon Dioxide 29 mmol/L (22-32) 03/07/19 05:05 Anion Gap 3 mmol/L (2-11) 03/07/19 05:05 BUN 32 mg/dL (6-24) H 03/07/19 05:05 Creatinine 1.50 mg/dL (0.51-0.95) H 03/07/19 05:05 Est GFR ( Amer) 40.2 (>60) 03/07/19 05:05 Est GFR (Non-Af Amer) 33.2 (>60) 03/07/19 05:05 BUN/Creatinine Ratio 21.3 (8-20) H 03/07/19 05:05 Glucose 111 mg/dL (70-100) H 03/07/19 05:05 Lactic Acid 0.9 mmol/L (0.5-2.0) 03/05/19 14:53 Calcium 8.3 mg/dL (8.6-10.3) L 03/07/19 05:05 Phosphorus 2.9 mg/dL (2.5-5.0) 03/07/19 05:05 Magnesium 2.0 mg/dL (1.9-2.7) 03/07/19 05:05 Total Bilirubin 0.60 mg/dL (0.2-1.0) 03/06/19 05:15 AST TNP 03/06/19 06:15 ALT 30 U/L (7-52) 03/06/19 05:15 Alkaline Phosphatase 50 U/L (34-104) 03/06/19 05:15 Ammonia 79 mcmol/L (16-53) H 03/05/19 14:52 Total Creatine Kinase 387 U/L (10-223) H 03/05/19 18:43 Troponin I 9.49 ng/mL (<0.04) H* 03/06/19 12:25 Total Protein 5.3 g/dL (6.4-8.9) L 03/06/19 05:15 Albumin 3.0 g/dL (3.2-5.2) L 03/06/19 05:15 Globulin 2.3 g/dL (2-4) 03/06/19 05:15 Albumin/Globulin Ratio 1.3 (1-3) 03/06/19 05:15 Urine Color Yellow 03/05/19 19:05 Urine Appearance Turbid 03/05/19 19:05 Urine pH 5.0 (5-9) 03/05/19 19:05 Ur Specific [place] 1.019 (1.010-1.030) 03/05/19 19:05 Urine Protein 1+(30 mg/dl) (Negative) A 03/05/19 19:05 Urine Ketones Negative (Negative) 03/05/19 19:05 Urine Blood Negative (Negative) 03/05/19 19:05 Urine Nitrate Negative (Negative) 03/05/19 19:05 Urine Bilirubin Negative (Negative) 03/05/19 19:05 Urine Urobilinogen Negative (Negative) 03/05/19 19:05 Ur Leukocyte Esterase 3+ (Negative) A 03/05/19 19:05 Urine WBC (Auto) 3+(>20/hpf) (Absent) A 03/05/19 19:05 Urine RBC (Auto) 3+(>10/hpf) (Absent) A 03/05/19 19:05 Urine Bacteria Absent (Absent) 03/05/19 19:05 Urine Glucose Negative (Negative) 03/05/19 19:05 Urine Ascorbic Acid * (Negative) A 03/05/19 19:05 Urine Opiates Screen Presumptive positive (None Detect) A 03/05/19 19:05 Ur Barbiturates Screen None detected (None Detect) 03/05/19 19:05 Ur Phencyclidine Scrn None detected (None Detect) 03/05/19 19:05 Ur Amphetamines Screen None detected (None Detect) 03/05/19 19:05 U Benzodiazepines Scrn None detected (None Detect) 03/05/19 19:05 Urine Cocaine Screen None detected (None Detect) 03/05/19 19:05 U Cannabinoids Screen None detected (None Detect) 03/05/19 19:05 Serum Alcohol < 10 mg/dL (<10) 03/05/19 14:52 Blood Type O Positive 03/07/19 13:00 Antibody Screen Negative 03/07/19 13:00 - Objective Active Medications: Acetaminophen (Tylenol Tab*) 975 mg PO Q8H PRN PRN Reason: FEVER/PAIN Amiodarone HCl (Cordarone Tab*) 50 mg PO DAILY [facility] Last Admin: 03/07/19 08:17 Dose: 50 mg Atorvastatin Calcium (Lipitor*) 40 mg PO BEDTIME [facility] Last Admin: 03/06/19 21:04 Dose: 40 mg Carvedilol (Coreg Tab*) 6.25 mg PO BID [facility] Last Admin: 03/07/19 08:17 Dose: 6.25 mg Escitalopram Oxalate (Lexapro *) 10 mg PO QAM [facility] Last Admin: 03/07/19 08:18 Dose: 10 mg Gabapentin (Neurontin Cap(*)) 600 mg PO BEDTIME [facility] Last Admin: 03/06/19 21:05 Dose: 600 mg Hydralazine HCl (Apresoline Tab*) 50 mg PO BID [facility] Piperacillin Sod/Tazobactam (Sod 3.375 gm/ Sodium Chloride) 100 mls @ 25 mls/ hr IVPB Q8H [facility] Last Admin: 03/07/19 10:52 Dose: 25 mls/hr Dextrose (D5w 1000 Ml Bag*) 1,000 mls @ 75 mls/hr IV PER RATE [facility] Stop: 03/07/19 22:59 Last Admin: 03/07/19 10:58 Dose: 75 mls/hr Pantoprazole Sodium (Protonix Iv Bag*) 80 mg in 250 mls @ 25 mls/hr IVPB Q10H [facility] Last Admin: 03/07/19 12:42 Dose: 25 mls/hr Magnesium Oxide (Magox 400 Tab*) 400 mg PO DAILY [facility] Last Admin: 03/07/19 08:17 Dose: 400 mg Nitroglycerin (Nitroglycerin Tab 0.4 Mg*) 0.4 mg SL Q5M PRN PRN Reason: PAIN - CHEST Pharmacy Consult (Zosyn Per Pharmacy*) 1 note FOLLOW UP .ZOSYN PER PHARMACY AMI Potassium Chloride (Klor-Con Liquid*) 20 meq PO DAILY [facility] Last Admin: 03/07/19 12:41 Dose: 20 meq Prednisone (Deltasone Tab*) 10 mg PO DAILY [facility] Last Admin: 03/07/19 08:17 Dose: 10 mg Vital Signs: Vital Signs: Temp Pulse Resp BP Pulse Ox 99.9 F 97 28 149/75 100 03/07/19 15:00 03/07/19 15:00 03/07/19 15:00 03/07/19 14:01 03/07/19 15:00 Patient Weight: Weight 59.493 kg Intake and Output: Intake & Output 03/05/19 03/06/19 03/07/19 03/08/19 06:59 06:59 06:59 06:59 Intake Total 1310 1792 640 Output Total 125 836 380 Balance 1185 956 260 Weight 58 kg 59.493 kg Intake: IV Fluids 1250 1195 ABX - ZOSYN 100 NS + abx 695 IVPB 215 ABX - ZOSYN 215 Medicated IV 282 heparin 282 Oral 60 100 640 Output: Urine 125 0 [place] 836 380 Other: Estimated Void Large Date of Last Bowel 03/07/2019 Movement # Bowel Movements 1 Estimated Stool Amount Medium # Voids 1 ADLs: Meal Record Start: 03/05/19 18: 50 Freq: DAILY@0900,1400,1800 Status: Complete Protocol: Created 03/05/19 18:50 System (Rec: 03/05/19 18:50 System [facility]) ADLs: Meal Record Start: 03/05/19 23: 45 Freq: 09,13,18 Status: Active Protocol: Created 03/05/19 23:45 [id number] (Rec: 03/05/19 23:45 [id number] ICU-C25) Document 03/06/19 11:24 [id number] (Rec: 03/06/19 11:24 [id number] ICU-L03) Document 03/06/19 13:17 [id number] (Rec: 03/06/19 13:20 [id number] ICU-L03) Document 03/06/19 18:46 [id number] (Rec: 03/06/19 18:46 [id number] ICU-L03) Document 03/07/19 09:00 [id number] (Rec: 03/07/19 15:01 [id number] ICU-C10) Document 03/07/19 13:00 [id number] (Rec: 03/07/19 15:01 [id number] ICU-C10) Intake and Output Start: 03/05/19 14: 37 Freq: Status: Complete Protocol: Created 03/05/19 14:37 System (Rec: 03/05/19 14:37 System ED-C26) Intake and Output Start: 03/05/19 18: 50 Freq: DAILY@0600,1400,2200 Status: Complete Protocol: Created 03/05/19 18:50 System (Rec: 03/05/19 18:50 System TELE-C02) Intake and Output Start: 03/05/19 23: 45 Freq: Q1HR Status: Active Protocol: Created 03/05/19 23:45 [id number] (Rec: 03/05/19 23:45 [id number] ICU-C25) Document 03/06/19 01:00 [id number] (Rec: 03/06/19 01:07 [id number] ICU-C25) Document 03/06/19 02:00 [id number] (Rec: 03/06/19 02:08 [id number] ICU-M35) Document 03/06/19 03:00 [id number] (Rec: 03/06/19 03:59 [id number] ICU-C25) Document 03/06/19 05:00 [id number] (Rec: 03/06/19 05:34 [id number] ICU-C25) Document 03/06/19 07:20 [id number] (Rec: 03/06/19 07:20 [id number] ICU-L03) Document 03/06/19 10:36 [id number] (Rec: 03/06/19 10:37 [id number] ICU-M35) Document 03/06/19 11:26 [id number] (Rec: 03/06/19 11:26 [id number] ICU-L03) Document 03/06/19 22:42 [id number] (Rec: 03/06/19 22:42 [id number] ICU-L03) Document 03/07/19 01:37 [id number] (Rec: 03/07/19 01:37 [id number] ICU-M35) Document 03/07/19 03:00 [id number] (Rec: 03/07/19 03:14 [id number] ICU-M35) Document 03/07/19 04:00 [id number] (Rec: 03/07/19 04:13 [id number] ICU-L03) Document 03/07/19 06:00 [id number] (Rec: 03/07/19 06:11 [id number] ICU-M35) Document 03/07/19 07:00 [id number] (Rec: 03/07/19 08:10 [id number] ICU-M35) Document 03/07/19 08:00 [id number] (Rec: 03/07/19 08:10 [id number] ICU-M35) Document 03/07/19 09:00 [id number] (Rec: 03/07/19 10:07 [id number] ICU-M35) Document 03/07/19 10:00 [id number] (Rec: 03/07/19 10:07 [id number] ICU-M35) Document 03/07/19 11:00 [id number] (Rec: 03/07/19 11:23 [id number] ICU-M35) Document 03/07/19 11:00 [id number] (Rec: 03/07/19 11:23 [id number] ICU-C10) Document 03/07/19 12:00 [id number] (Rec: 03/07/19 14:47 [id number] ICU-C10) Document 03/07/19 13:00 [id number] (Rec: 03/07/19 15:02 [id number] ICU-C10) Eyes: PERRLA, - - EOMI Ears/Nose/Mouth/Throat: NL Teeth, Lips, Gums Neck: NL Appearance and Movements; NL JVP, Trachea Midline Cardiovascular: NL Sounds; No Murmurs; No JVD, RRR Abdominal: NL Sounds; No Tenderness; No Distention Extremities: No Edema - Assessment Assessment: 83 yo female with mild dementia and VT now with melena(new versus related to nosebleed) - Plan Consult Plan (MU): Palliative Plan: Long discussion with pt (HCP) and niece. expressed that he is no longer able to care for his at home and would like snf placement. He would like her to have rehab in the SNF if she is eligible. Currently they use [facility] but have declined the [facility] palliative program. Also discussed the MOLST form. Pt prefers CPR but no intubation which is hard to do. Pt had episode of Vtach with cardiac arrest and did well with CPR, so she wants to try again but I told pt's family that was an unusual case and most pts have a 1/10 chance of restarting the heart after arrest and can suffer broken ribs and diminished brain flow which affects cognition. wants to think about it he feels no CPR is reasonable but wants to make sure that is what his would want. Gave information about hospice but not sure pt qualifies(<6months). Did explain chronic disease trajectory and pt has a decreased life expectancy due to extent of her disease. Discussed my findings with ICU doctor and her hospitalist. KPS 60%, PPS 60% - Time On Unit Date of Evaluation: 03/07/19 Hospice Consult Time in: 01:00 Hospice Consult Time Out: 02:30 Hospice Consult Time Total: 90 > 50% of Time Spend In Counseling or Coordinating Care: Yes
[2019-03-07] MEDS ORDERED: Vancomycin(*) 1,000 MG in NS 0.9% 250 ML* 250 ML IVPB ONE (17:15)
[2019-03-07] MEDS ORDERED: Vancomycin per Pharmacy* NOTE FOLLOW UP SCH (18:00)
[2019-03-07 18:34] LABS: ABS Basophils 0 10^3/ul (0-0.2); ABS Eosinophils 0 10^3/ul (0-0.6); ABS Lymphocytes 0.3 10^3/ul (1.0-4.8); ABS Monocytes 0.7 10^3/ul (0-0.8); ABS Neutrophils 13.3 10^3/ul (1.5-7.7); ABS Nucleated RBC 0 10^3/ul; Eosinophil % 0.1 %; Hematocrit 24 % (33-41); Hemoglobin 7.1 g/dL (12.0-16.0); Lymphocyte % 2.3 %; Mean Corpuscular HGB Conc 30 g/dL (31-36); Mean Corpuscular Hemoglobin 30 pg (27-31); Mean Corpuscular Volume 99 fL (80-97); Mean Platelet Volume 10.2 fL (7.4-10.4); Nucleated Red Blood Cells % 0; Platelet Count 146 10^3/uL (150-450); Red Blood Count 2.39 10^6 /uL (3.70-4.87); Red Cell Distribution Width 20 % (10.5-15); White Blood Count 14.3 10^3/uL (3.5-10.8)
[2019-03-07] MEDS: Gabapentin CAP(*) 300 MG PO SCH (20:36)
[2019-03-07] MEDS ORDERED: hydrALAZINE IV* 20 MG/ML VIAL IV SLOW PU PRN (20:36)
[2019-03-07] MEDS: Atorvastatin* 40 MG TAB PO SCH (20:36)
[2019-03-07] MEDS: Metoprolol Tartrate IV* 1 MG/ML 5 ML VIAL IV PRN (20:51)
--- NOTE | 2019-03-07 22:38 | CONS ---
CONSULTATION REPORT: DATE OF CONSULT: 03/07/19 REQUESTING PROVIDER: Dr. Rocha. REASON FOR CONSULTATION: Melena. HISTORY OF PRESENT ILLNESS: This is an 83-year-old female with mild dementia, CAD, hypertension, CKD, stroke, and endarterectomy, frequent nosebleeds, and moderate , who presented to the emergency room on 03/05/19 with generalized weakness and altered mental status. The history of present illness is supplemented by the at bedside. He found her on the floor of the bedroom in the morning and states that she was incoherent and answering questions inappropriately from her baseline. He carried her to the bathroom and then when he put her on the bathroom, they noticed 1 clot of old blood in the toilet, unclear of the origin, was not sure if there was stool or urine associated with this. She then presented to the emergency room and was found to rule in for NSTEMI and placed on medical therapy. Shortly after, she developed a significant nosebleed that did ultimately require a nasal packing via ENT. Today, it was noted that there was some dark stool consistent with melena. She directly denies any abdominal pain, normally moves her bowels every other day to every day or so at home. No frequent diarrhea or constipation. She had an EGD in 2016 with some mild gastritis and she had a colonoscopy in [address] Garcia that revealed 2 small polyps. 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 PAST MEDICAL HISTORY: Systolic CHF, hypertension, hypercholesterolemia, osteoarthritis, PMR, iron deficiency anemia, CAD, PVD, V-tach, subclavian steal , CKD stage III, osteoarthritis, possible stroke after a carotid endarterectomy. PAST SURGICAL HISTORY: Bilateral femoral bypass, left carotid endarterectomy, cholecystectomy, cataract surgery, tubal ligation, hysterectomy, blood patch, and EGD in 2016 with gastritis, and a colonoscopy in 2009 with 2 small colon polyps. MEDICATIONS: Home medications include: 1. Carvedilol. 2. Lasix. 3. Tramadol. 4. Prednisone. 5. Klonopin. 6. KCl. 7. Nitroglycerin. 8. Melatonin. 9. Magnesium oxide. 10. Acidophilus. 11. Gabapentin. 12. Ferrous sulfate. 13. Lexapro. 14. Colace. 15. Vitamin B12. 16. Plavix. 17. Caltrate. 18. Lipitor. 19. Amiodarone. 20. Tylenol. ALLERGIES: Include MONOSODIUM GLUTAMATE, CEPHALEXIN, IBUPROFEN, chestnuts. FAMILY HISTORY: No family history of colorectal cancer. SOCIAL HISTORY: to her , [place]. Former smoker. Does not drink alcohol or use drugs. REVIEW OF SYSTEMS: The remainder of the 14-point review of systems is grossly negative except as described in the HPI, but limited by the patient's mental status. PHYSICAL EXAMINATION: Vital Signs: Blood pressure is 160/77, pulse is 99, T- max is 100, 99% on room air. In general, alert, pleasantly confused. HEENT: Nasal packing present bilaterally. Normocephalic. Conjunctivae are pink. Sclerae are anicteric. Cardiovascular: Irregular rate and rhythm. Pulmonary: Diffuse wheeze bilaterally, decreased effort and decreased airflow bilaterally at the base. Abdomen: Soft, nontender, nondistended. Bowel sounds positive. Extremities: Minimal edema. LABORATORY DATA: Hemoglobin is 7.1, WBC count is 14.3, platelet count is 146, APTT is 55.8. Sodium 146, creatinine 1.5, BUN is 32, ALT was 30, troponin I was 9.49, albumin is 3. ASSESSMENT: An 83-year-old with mild dementia, myocardial infarction, and now melena. 1. Melena. The patient had significant nasal packing, unclear if this is truly gastrointestinal in origin at this point. She is not a great endoscopy candidate with severe chronic obstructive pulmonary disease, dementia, and in addition coronary artery disease with moderate aortic stenosis. At this point, we would recommend monitoring H and H every 6 hours, place the patient on a Protonix drip. She does not seem to have a need for Sandostatin given there does not appear to be any evidence of liver disease. I discussed multiple options with the including conservative therapy and observation versus aggressive endoscopic therapy. At this point, he would prefer to conservatively manage her and continue to watch her hemoglobin and see how she does with conservative care. He is not sure if he would want her to have an invasive procedure such an EGD or colonoscopy at this time. We would recommend keeping 2 units of PRBCs on hold, transfuse to keep the hemoglobin above 7 and close monitoring; if evidence of active ongoing bleeding, contact GI service. 2. Severe chronic obstructive pulmonary disease. On O2 therapy per primary team. 3. Coronary artery disease with rule in for [id number]-wdovcptax myocardial infarction, anticoagulation being held due to epistaxis and ongoing potential for bleeding. 4. Acute blood loss anemia, unclear if GI etiology in nature, did have significant epistaxis bleed. Discussed with . We will monitor at this time. 5. Moderate to severe aortic stenosis. Per primary team and Cardiology. 6. Congestive heart failure. [id number]/[facility] #: [id number] [facility]
[2019-03-07] MEDS ORDERED: Haloperidol INJ IV/IM* 5 MG/ML AMP IM ONE (22:44)
[2019-03-08] MEDS: ZOSYN 3.375 GM Q8H IVPB SCH ×6 (01:36→19:18)
[2019-03-08 01:39] LABS: ABS Basophils 0.1 10^3/ul (0-0.2); ABS Eosinophils 0 10^3/ul (0-0.6); ABS Lymphocytes 0.6 10^3/ul (1.0-4.8); ABS Monocytes 1.2 10^3/ul (0-0.8); ABS Neutrophils 15.3 10^3/ul (1.5-7.7); ABS Nucleated RBC 0 10^3/ul; Eosinophil % 0.3 %; Hematocrit 30 % (33-41); Hemoglobin 9.4 g/dL (12.0-16.0); Lymphocyte % 3.2 %; Mean Corpuscular HGB Conc 31 g/dL (31-36); Mean Corpuscular Hemoglobin 30 pg (27-31); Mean Corpuscular Volume 95 fL (80-97); Mean Platelet Volume 10.2 fL (7.4-10.4); Nucleated Red Blood Cells % 0; Platelet Count 183 10^3/uL (150-450); Red Blood Count 3.15 10^6 /uL (3.70-4.87); Red Cell Distribution Width 21 % (10.5-15); White Blood Count 17.2 10^3/uL (3.5-10.8)
[2019-03-08] MEDS ORDERED: Haloperidol INJ IV/IM* 5 MG/ML AMP IM ONE (03:11)
[2019-03-08] MEDS ORDERED: LORazepam INJ* 2 MG/ML 1 ML VIAL IV PUSH ONE (04:15)
--- NOTE | 2019-03-08 04:32 | PN ---
Hospitalist Progress Note Cross coverage note: Pt very agitated and oppositional. Refused O2 mask - pulling at it. States "I think YOU need the mask." Slightly threatening at times. Doesn't appear uncomfortable or toxic. Denies pain or SOB. Soft restraints ordered but pt still very mobile. Previously with improvement in agitation with IM Haldol. Tonight, received Haldol 2m IM x 2. Pt with recurrence in agitation. Will trial Ativan 1 mg IV and monitor respiratory status closely. Currently, vital signs at baseline.
[2019-03-08] MEDS: Metoprolol Tartrate IV* 1 MG/ML 5 ML VIAL IV PRN (04:35)
[2019-03-08 06:33] LABS: ABS Basophils 0.1 10^3/ul (0-0.2); ABS Eosinophils 0.1 10^3/ul (0-0.6); ABS Lymphocytes 0.7 10^3/ul (1.0-4.8); ABS Monocytes 1.1 10^3/ul (0-0.8); ABS Neutrophils 17.5 10^3/ul (1.5-7.7); ABS Nucleated RBC 0 10^3/ul; Eosinophil % 0.5 %; Hematocrit 35 % (33-41); Hemoglobin 10.9 g/dL (12.0-16.0); Lymphocyte % 3.7 %; Mean Corpuscular HGB Conc 32 g/dL (31-36); Mean Corpuscular Hemoglobin 30 pg (27-31); Mean Corpuscular Volume 95 fL (80-97); Nucleated Red Blood Cells % 0.1; Platelet Count 175 10^3/uL (150-450); Red Blood Count 3.67 10^6 /uL (3.70-4.87); Red Cell Distribution Width 20 % (10.5-15); White Blood Count 19.5 10^3/uL (3.5-10.8)
[2019-03-08 06:38] LABS: BUN/Creatinine Ratio 19.2 (8-20); EGFR African American 47.5 (>60); EGFR Non-African American 39.2 (>60); Potassium 3.7 mmol/L (3.5-5.0)
[2019-03-08] MEDS: hydrALAZINE IV* 20 MG/ML VIAL IV SLOW PU PRN (06:38)
[2019-03-08] MEDS: Escitalopram * 10 MG TAB PO SCH (07:56)
[2019-03-08] MEDS: Pantoprazole* 80 mg IN NS 80 MG/250 ML BAG IVPB SCH ×3 (07:56→16:56)
[2019-03-08] MEDS: predniSONE TAB* 10 MG PO SCH (07:56)
[2019-03-08] MEDS: Magnesium Oxide TAB* 400 MG PO SCH (07:57)
[2019-03-08] MEDS: Amiodarone TAB* 200 MG PO SCH (07:57)
[2019-03-08] MEDS: hydrALAZINE TAB* 25 MG PO SCH ×2 (07:58→20:03)
[2019-03-08] MEDS: Carvedilol TAB* 6.25 MG PO SCH ×3 (07:59→20:08)
[2019-03-08] MEDS: Potassium Chloride LIQUID* 20 MEQ PACKET PO SCH (08:00)
--- NOTE | 2019-03-08 08:14 | PN ---
<Leticia Sam - Last Filed: 03/08/19 08:09> Subjective Date of Service: 03/08/19 - NSTEMI, melena,epistaxsis Interval History: Patient had a restless night and actually required Haldol. She currently has arm restrictions on so she does pull off her oxygen. She denies chest pain but does states she is having nare pain from packing. Per RN whom I spoke with last episode of melena was at 0100. She received 2 units PRBCs. Medications Active Medications: Acetaminophen (Tylenol Tab*) 975 mg PO Q8H PRN PRN Reason: FEVER/PAIN Amiodarone HCl (Cordarone Tab*) 50 mg PO DAILY [facility] Last Admin: 03/08/19 07:57 Dose: 50 mg Atorvastatin Calcium (Lipitor*) 40 mg PO BEDTIME [facility] Last Admin: 03/07/19 20:36 Dose: 40 mg Carvedilol (Coreg Tab*) 12.5 mg PO BID [facility] Escitalopram Oxalate (Lexapro *) 10 mg PO QAM [facility] Last Admin: 03/08/19 07:56 Dose: 10 mg Gabapentin (Neurontin Cap(*)) 600 mg PO BEDTIME [facility] Last Admin: 03/07/19 20:36 Dose: 600 mg Hydralazine HCl (Apresoline Tab*) 50 mg PO BID [facility] Last Admin: 03/08/19 07:58 Dose: 50 mg Hydralazine HCl (Apresoline Iv*) 5 mg IV SLOW PU Q4H PRN PRN Reason: SBP>160 Last Admin: 03/08/19 06:38 Dose: 5 mg Piperacillin Sod/Tazobactam (Sod 3.375 gm/ Sodium Chloride) 100 mls @ 25 mls/ hr IVPB Q8H [facility] Last Admin: 03/08/19 01:36 Dose: 25 mls/hr Pantoprazole Sodium (Protonix Iv Bag*) 80 mg in 250 mls @ 25 mls/hr IVPB Q10H [facility] Last Admin: 03/08/19 07:56 Dose: Not Given Vancomycin HCl 1,000 mg/ (Sodium Chloride) 250 mls @ 166.667 mls/hr IVPB Q24H [facility] Magnesium Oxide (Magox 400 Tab*) 400 mg PO DAILY [facility] Last Admin: 03/08/19 07:57 Dose: 400 mg Metoprolol Tartrate (Lopressor Iv*) 5 mg IV Q6H PRN PRN Reason: Blood Pressure>160 and HR>100 Last Admin: 03/08/19 04:35 Dose: 5 mg Nitroglycerin (Nitroglycerin Tab 0.4 Mg*) 0.4 mg SL Q5M PRN PRN Reason: PAIN - CHEST Pharmacy Consult (Zosyn Per Pharmacy*) 1 note FOLLOW UP .ZOSYN PER PHARMACY [facility] Pharmacy Consult (Vancomycin Per Pharmacy*) 1 note FOLLOW UP .VANC PER PHARMACY [facility] Pharmacy Profile Note (Vancomycin Trough Check) 1 note FOLLOW UP 1130 ONE Stop: 03/10/19 11:31 Potassium Chloride (Klor-Con Liquid*) 20 meq PO DAILY [facility] Last Admin: 03/08/19 08:00 Dose: 20 meq Prednisone (Deltasone Tab*) 10 mg PO DAILY [facility] Last Admin: 03/08/19 07:56 Dose: 10 mg Objective Vital Signs: Temp Pulse Resp BP Pulse Ox 100.6 F 102 21 159/104 96 03/08/19 06:01 03/08/19 06:01 03/08/19 06:01 03/08/19 06:01 03/08/19 06:01 Oxygen Devices in Use Now: Simple Face Mask Appearance: lying in bed, confused, nad Eyes: No Scleral Icterus Ears/Nose/Mouth/Throat: Mucous Membranes Moist, - - nares packed Neck: NL Appearance and Movements; NL JVP, Trachea Midline, No Thyroid Enlargement, Masses Respiratory: Symmetrical Chest Expansion and Respiratory Effort, Clear to Auscultation Cardiovascular: No Edema, - - normal S1, S2 + mitral and aortic murmur Extremities: No Edema Neurological: - - alert to self Lines/Tubes/Other Access: Clean, Dry and Intact Peripheral IV Laboratory Results: 03/08/19 06:00 03/08/19 06:00 APTT 55.8 seconds (26.0-36.3) H 03/07/19 09:00 Total Bilirubin 0.60 mg/dL (0.2-1.0) 03/06/19 05:15 AST TNP 03/06/19 06:15 ALT 30 U/L (7-52) 03/06/19 05:15 Alkaline Phosphatase 50 U/L (34-104) 03/06/19 05:15 Total Protein 5.3 g/dL (6.4-8.9) L 03/06/19 05:15 Albumin 3.0 g/dL (3.2-5.2) L 03/06/19 05:15 Globulin 2.3 g/dL (2-4) 03/06/19 05:15 Albumin/Globulin Ratio 1.3 (1-3) 03/06/19 05:15 03/05/19 03/05/19 03/05/19 14:52 18:43 20:40 Troponin I 6.36 H* 12.97 H* 14.62 H* 03/06/19 03/06/19 03/06/19 00:35 05:15 12:25 Troponin I 19.55 H* 18.84 H* 9.49 H* Laboratory Results - last 24 hr 03/07/19 03/07/19 03/07/19 09:00 13:00 13:00 WBC 16.5 H RBC 2.72 L Hgb 8.2 L Hct 27 L MCV 99 H MCH 30 MCHC 31 RDW 20 H Plt Count 163 MPV 10.3 Neut % (Auto) 95.1 Lymph % (Auto) 1.6 L[place] % (Auto) 2.8 Eos % (Auto) 0.2 Baso % (Auto) 0.3 Absolute Neuts (auto) 15.7 H Absolute Lymphs (auto) 0.3 L Absolute Monos (auto) 0.5 Absolute Eos (auto) 0 Absolute Basos (auto) 0 Absolute Nucleated RBC 0 Nucleated RBC % 0 APTT 55.8 H Sodium Potassium Chloride Carbon Dioxide Anion Gap BUN Creatinine Est GFR ( Amer) Est GFR (Non-Af Amer) BUN/Creatinine Ratio Glucose Calcium Blood Type O Positive Antibody Screen Negative Crossmatch See Detail Donor Unit # Post-Trans Blood Type Post-Trans ALISA Reaction Interpretation 03/07/19 03/07/19 03/08/19 18:23 23:45 00:43 WBC 14.3 H 17.2 H RBC 2.39 L 3.15 L Hgb 7.1 L 9.4 L Hct 24 L 30 L MCV 99 H 95 MCH 30 30 MCHC 30 L 31 RDW 20 H 21 H Plt Count 146 L 183 MPV 10.2 10.2 Neut % (Auto) 92.7 89.1 Lymph % (Auto) 2.3 3.2 Lassen % (Auto) 4.6 7.0 Eos % (Auto) 0.1 0.3 Baso % (Auto) 0.3 0.4 Absolute Neuts (auto) 13.3 H 15.3 H Absolute Lymphs (auto) 0.3 L 0.6 L Absolute Monos (auto) 0.7 1.2 H Absolute Eos (auto) 0 0 Absolute Basos (auto) 0 0.1 Absolute Nucleated RBC 0 0 Nucleated RBC % 0 0 APTT Sodium Potassium Chloride Carbon Dioxide Anion Gap BUN Creatinine Est GFR ( Amer) Est GFR (Non-Af Amer) BUN/Creatinine Ratio Glucose Calcium Blood Type Antibody Screen Crossmatch Donor Unit # [id number] Post-Trans Blood Type O Positive Post-Trans ALISA Negative Reaction Interpretation 03/08/19 03/08/19 06:00 06:00 WBC 19.5 H RBC 3.67 L Hgb 10.9 L Hct 35 MCV 95 MCH 30 MCHC 32 RDW 20 H Plt Count 175 MPV 10.0 Neut % (Auto) 89.6 Lymph % (Auto) 3.7 Lassen % (Auto) 5.8 Eos % (Auto) 0.5 Baso % (Auto) 0.4 Absolute Neuts (auto) 17.5 H Absolute Lymphs (auto) 0.7 L Absolute Monos (auto) 1.1 H Absolute Eos (auto) 0.1 Absolute Basos (auto) 0.1 Absolute Nucleated RBC 0 Nucleated RBC % 0.1 APTT Sodium 144 Potassium 3.7 Chloride 113 H Carbon Dioxide 25 Anion Gap 6 BUN 25 H Creatinine 1.30 H Est GFR ( Amer) 47.5 Est GFR (Non-Af Amer) 39.2 BUN/Creatinine Ratio 19.2 Glucose 100 Calcium 8.0 L Blood Type Antibody Screen Crossmatch Donor Unit # Post-Trans Blood Type Post-Trans ALISA Reaction Interpretation Diagnostic Imaging: Echo 03/06/2019; LVEF 45-50% with moderate to severe LVH, no focal WMA. Moderate- severe , Mild to moderate MS, modeat to severe pulm HTN per report. Patient Name: KEESHA DOTSON Medical Record#: [id number] Ordering Physician: Julio Rocha MD Acct.#: [id number] : 1935 Age: 83 Sex: F Location: [facility] Exam Date: 03/08/19 0600 ADM Status: ADM IN Order Information: CHEST AP OR PORT Accession Number: [id number] CPT: 48716 Indication: Pneumonia follow-up. History of CHF. Comparison: March 06, 2019 chest radiograph and March 05, 2019 CT. Technique: Upright AP 0609 hours Report: Elevated lung volumes and moderate prominence of the interstitial markings. Bilateral diffuse patchy alveolar consolidation most prominent at the LEFT lung base without significant change. Small pleural effusions. Negative for pneumothorax. Unchanged cardiomegaly. Unremarkable central pulmonary vasculature. Gallbladder fossa level and epigastric surgical clips. IMPRESSION: #. Stigmata of chronic obstructive pulmonary disease with persistent finding of bronchopneumonia without significant change. <Electronically signed by Prieto Fisher MD in OV> 03/08/19751 Dictated By: Prieto Fisher MD Dictated Date/Time: 03/08/19751 Transcribed Date/Time: 03/08/19 0748 Copy to: CC:Hao Jeffers DO; Ragini Gallagher MD; Andrew Simmons MD; Santy Pike MD; Julio Rocha MD; Grecia Anderson MD; Ginny Zamora MD; Tina Pleitez MD Imaging - [facility] Imaging - [facility] [address] [address] ph ([phone]) ph ([phone]) ph ([phone]) This report is only to be considered final once signed by the Provider(s) as displayed in the "<Electronically Signed by >" field (s). Absence of a signature indicates the report is in a draft status and still needs to be finalized. In the event this document was created by someone other than the signing Provider, the individual initiating the document will be listed in the "Entered by:" or "Dictated by:" byrd. 1 of 1 EKG Data: 03/05/2019; NSR rate 105, known anterior early repolarization, Assessment/Plan #1 NSTEMI; troponin peaked on 03/06/2019 at 19.5. 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 In the past Dr. Moody had offered LHC pre AVR/MVR however, the patient opted for conservative treatment. She is no longer on IV heparin given troponin was trending down and she developed melena with worsening anemia that required 2 PRBCs. She is off oc ASA and Plavix. I recommend resuming ASA and Plavix as soon as possible once it is okay from a bleeding standpoint. Will update Trop given advanced dementia and difficulty communicating symptomatology. Will continue Coreg and Statin therapy. No focal wall motion abnormality on echo. #2 Ongoing anemia, Hct 35 today after 2 units PRBCs. Heme + stool with new finding of melena yesterday. Recommend transfusing to Hgb 8. GI following #3 moderate to severe ; peak gradient 72, mean-30. Avoid afterload reduction, volume retraction. #4 HF mr EF; Compensated on exam. Appears compensated today. Will increase Coreg to 12.5mg PO BID given HTN. #5 Disposition, pending course. Appreciate Palliative care consultation. Patient has low grade fever this morning. Defer to primary team. Would recommend resuming ASA 81/day and Plavix once it is okay from a bleeding standpoint. Attending: Saud Balbuena <Saud Balbuena - Last Filed: 03/08/19 20:00> Medications Active Medications: Acetaminophen (Tylenol Tab*) 975 mg PO Q8H PRN PRN Reason: FEVER/PAIN Acetaminophen (Tylenol Supp*) 650 mg NM Q4H PRN PRN Reason: FEVER OR PAIN Last Admin: 03/08/19 10:40 Dose: 650 mg Amiodarone HCl (Cordarone Tab*) 50 mg PO DAILY [facility] Last Admin: 03/08/19 07:57 Dose: 50 mg Atorvastatin Calcium (Lipitor*) 40 mg PO BEDTIME [facility] Last Admin: 03/07/19 20:36 Dose: 40 mg Carvedilol (Coreg Tab*) 12.5 mg PO BID [facility] Last Admin: 03/08/19 08:47 Dose: 6.25 mg Escitalopram Oxalate (Lexapro *) 10 mg PO QAM [facility] Last Admin: 03/08/19 07:56 Dose: 10 mg Gabapentin (Neurontin Cap(*)) 600 mg PO BEDTIME [facility] Last Admin: 03/07/19 20:36 Dose: 600 mg Hydralazine HCl (Apresoline Tab*) 50 mg PO BID [facility] Last Admin: 03/08/19 07:58 Dose: 50 mg Hydralazine HCl (Apresoline Iv*) 5 mg IV SLOW PU Q4H PRN PRN Reason: SBP>160 Last Admin: 03/08/19 06:38 Dose: 5 mg Piperacillin Sod/Tazobactam (Sod 3.375 gm/ Sodium Chloride) 100 mls @ 25 mls/ hr IVPB Q8H [facility] Last Admin: 03/08/19 19:18 Dose: 25 mls/hr Pantoprazole Sodium (Protonix Iv Bag*) 80 mg in 250 mls @ 25 mls/hr IVPB Q10H [facility] Last Admin: 03/08/19 16:56 Dose: Not Given Vancomycin HCl 1,000 mg/ (Sodium Chloride) 250 mls @ 166.667 mls/hr IVPB Q24H [facility] Last Admin: 03/08/19 12:10 Dose: 166.667 mls/hr Magnesium Oxide (Magox 400 Tab*) 400 mg PO DAILY [facility] Last Admin: 03/08/19 07:57 Dose: 400 mg Metoprolol Tartrate (Lopressor Iv*) 5 mg IV Q6H PRN PRN Reason: Blood Pressure>160 and HR>100 Last Admin: 03/08/19 04:35 Dose: 5 mg Nitroglycerin (Nitroglycerin Tab 0.4 Mg*) 0.4 mg SL Q5M PRN PRN Reason: PAIN - CHEST Pharmacy Consult (Zosyn Per Pharmacy*) 1 note FOLLOW UP .ZOSYN PER PHARMACY [facility] Pharmacy Consult (Vancomycin Per Pharmacy*) 1 note FOLLOW UP .VANC PER PHARMACY [facility] Pharmacy Profile Note (Vancomycin Trough Check) 1 note FOLLOW UP 1130 ONE Stop: 03/10/19 11:31 Potassium Chloride (Klor-Con Liquid*) 20 meq PO DAILY [facility] Last Admin: 03/08/19 08:00 Dose: 20 meq Prednisone (Deltasone Tab*) 10 mg PO DAILY [facility] Last Admin: 03/08/19 07:56 Dose: 10 mg Objective Vital Signs: Temp Pulse Resp BP Pulse Ox 97.6 F 90 20 99/61 92 03/08/19 17:40 03/08/19 17:40 03/08/19 17:40 03/08/19 17:40 03/08/19 17:40 Laboratory Results: 03/08/19 06:00 03/08/19 06:00 APTT 55.8 seconds (26.0-36.3) H 03/07/19 09:00 Total Bilirubin 0.60 mg/dL (0.2-1.0) 03/06/19 05:15 AST TNP 03/06/19 06:15 ALT 30 U/L (7-52) 03/06/19 05:15 Alkaline Phosphatase 50 U/L (34-104) 03/06/19 05:15 Total Protein 5.3 g/dL (6.4-8.9) L 03/06/19 05:15 Albumin 3.0 g/dL (3.2-5.2) L 03/06/19 05:15 Globulin 2.3 g/dL (2-4) 03/06/19 05:15 Albumin/Globulin Ratio 1.3 (1-3) 03/06/19 05:15 03/05/19 03/05/19 03/05/19 14:52 18:43 20:40 Troponin I 6.36 H* 12.97 H* 14.62 H* 03/06/19 03/06/19 03/06/19 00:35 05:15 12:25 Troponin I 19.55 H* 18.84 H* 9.49 H* 03/08/19 08:02 Troponin I 4.05 H* Assessment/Plan Points of Discussion: Patient appears more comfortable today after transfusion. Hct improved. No CP or dyspnea. Plan: continue rx of ID status as per Hospitalist service. off DAPT and heparin for now given bleeding issues. NSTEMI limited ability to rx given above. most effective antiischemic strategy may be to rx anemia. agree with plan
[2019-03-08 09:10] LABS: Troponin I 4.05 ng/mL (<0.04)
[2019-03-08] MEDS ORDERED: Acetaminophen SUPP* 650 MG SUPP PR PRN (10:29)
[2019-03-08] MEDS ORDERED: Morphine 4 MG/ML VIAL (1 ml) 4 MG/ML VIAL IV ONE (10:30)
[2019-03-08] MEDS ORDERED: Acetaminophen SUPP* 650 MG SUPP ONE (10:33)
--- NOTE | 2019-03-08 11:36 | PN ---
Date of Service: 03/08/19 - [facility] note Critical Care Services: Pt seen and examined at bedside. Ovenright events noted. Dark stools noted. Denies chest pain. Was tachypenic this am and was placed on 10L O2 Active Medications Generic Name Dose Route Start Last Admin Trade Name Freq PRN Reason Stop Dose Admin Acetaminophen 975 mg 03/06/19 03:16 Tylenol Tab* PO Q8H PRN FEVER/PAIN Acetaminophen 650 mg 03/08/19 10:29 03/08/19 10:40 Tylenol Supp* LA 650 mg Q4H PRN Administration FEVER OR PAIN Amiodarone HCl 50 mg 03/06/19 09:00 03/08/19 07:57 Cordarone Tab* PO 50 mg DAILY [facility] Administration Atorvastatin Calcium 40 mg 03/06/19 21:00 03/07/19 20:36 Lipitor* PO 40 mg BEDTIME [facility] Administration Carvedilol 12.5 mg 03/08/19 09:00 03/08/19 08:47 Coreg Tab* PO 6.25 mg BID [facility] Administration Escitalopram Oxalate 10 mg 03/06/19 09:00 03/08/19 07:56 Lexapro * PO 10 mg QAM [facility] Administration Gabapentin 600 mg 03/06/19 21:00 03/07/19 20:36 Neurontin Cap(*) PO 600 mg BEDTIME [facility] Administration Hydralazine HCl 50 mg 03/07/19 21:00 03/08/19 07:58 Apresoline Tab* PO 50 mg BID [facility] Administration Hydralazine HCl 5 mg 03/07/19 20:37 03/08/19 06:38 Apresoline Iv* IV SLOW PU 5 mg Q4H PRN Administration SBP>160 Piperacillin Sod/Tazobactam 100 mls @ 25 mls/hr 03/07/19 10:00 03/08/19 11:00 Sod 3.375 gm/ Sodium Chloride IVPB 25 mls/hr Q8H [facility] Administration Pantoprazole Sodium 80 mg in 250 mls @ 25 mls/hr 03/07/19 12:00 03/08/19 07: 56 Protonix Iv Bag* IVPB Not Given Q10H [facility] 8 MG/HR Vancomycin HCl 1,000 mg/ 250 mls @ 166.667 mls/hr 03/08/19 12:00 Sodium Chloride IVPB Q24H [facility] Magnesium Oxide 400 mg 03/06/19 09:00 03/08/19 07:57 Magox 400 Tab* PO 400 mg DAILY [facility] Administration Metoprolol Tartrate 5 mg 03/07/19 20:36 03/08/19 04:35 Lopressor Iv* IV 5 mg Q6H PRN Administration Blood Pressure>160 and HR>100 Nitroglycerin 0.4 mg 03/05/19 21:12 Nitroglycerin Tab 0.4 Mg* SL Q5M PRN PAIN - CHEST Pharmacy Consult 1 note 03/05/19 21:00 Zosyn Per Pharmacy* FOLLOW UP .ZOSYN PER PHARMACY [facility] Pharmacy Consult 1 note 03/07/19 18:00 Vancomycin Per Pharmacy* FOLLOW UP .VANC PER PHARMACY [facility] Pharmacy Profile Note 1 note 03/10/19 11:30 Vancomycin Trough Check FOLLOW UP 03/10/19 11:31 1130 ONE Potassium Chloride 20 meq 03/07/19 09:00 03/08/19 08:00 Klor-Con Liquid* PO 20 meq DAILY [facility] Administration Prednisone 10 mg 03/06/19 09:00 03/08/19 07:56 Deltasone Tab* PO 10 mg DAILY [facility] Administration Vital Signs: Temp Pulse Resp BP SpO2 FiO2 100.6 F 102 38 142/82 99 35 03/08/19 09:16 03/08/19 09:16 03/08/19 10:44 03/08/19 09:16 03/08/19 09:16 03/08 04:00 Physical Exam: Gen: Pt in mild distress, tachyp[enic, not using accessory muscles HEENT: Nasal packing removed, dry crusting noted Lungs: Crackles at bases Cardiac: S1, S2+ Abdomen: Soft, BS+ Extremities: No edema Neuro: No focal deficits. Alert, awake Fluid Balance (Past 24 Hours): I= 3137 O= 1061 Net 2076 Intake & Output 03/06/19 03/07/19 03/08/19 03/09/19 06:59 06:59 06:59 06:59 Intake Total 1310 1792 3137 Output Total 857 685 4694 45 Balance 6894 276 8507 -45 Weight 127 lb 13.89 oz 131 lb 2.547 oz 134 lb 7.712 oz Intake: IV Fluids 1250 1195 960 ABX - ZOSYN 100 D5W 835 NS 0.9% 695 125 IVPB 215 607 ABX - VANCOMYCIN 290 ABX - ZOSYN 215 317 Medicated IV 282 359 GEN - Pantoprazole/ 337 Protonix heparin 282 22 Oral 60 100 640 Packed Cells 571 Output: Urine 125 0 Fregoso 836 1061 45 Other: Estimated Void Large Date of Last Bowel 03/07/2019 03/08/19 Movement # Bowel Movements 1 1 Estimated Stool Amount Medium Medium # Voids 1 Labs: Laboratory Results - last 24 hr 03/07/19 03/07/19 03/07/19 13:00 13:00 18:23 WBC 16.5 H 14.3 H RBC 2.72 L 2.39 L Hgb 8.2 L 7.1 L Hct 27 L 24 L MCV 99 H 99 H MCH 30 30 MCHC 31 30 L RDW 20 H 20 H Plt Count 163 146 L MPV 10.3 10.2 Neut % (Auto) 95.1 92.7 Lymph % (Auto) 1.6 2.3 [place] % (Auto) 2.8 4.6 Eos % (Auto) 0.2 0.1 Baso % (Auto) 0.3 0.3 Absolute Neuts (auto) 15.7 H 13.3 H Absolute Lymphs (auto) 0.3 L 0.3 L Absolute Monos (auto) 0.5 0.7 Absolute Eos (auto) 0 0 Absolute Basos (auto) 0 0 Absolute Nucleated RBC 0 0 Nucleated RBC % 0 0 Sodium Potassium Chloride Carbon Dioxide Anion Gap BUN Creatinine Est GFR ( Amer) Est GFR (Non-Af Amer) BUN/Creatinine Ratio Glucose Calcium Troponin I Blood Type O Positive Antibody Screen Negative Crossmatch See Detail Transfusion React Rpt Donor Unit # Post-Trans Blood Type Post-Trans ALISA 03/07/19 03/08/19 03/08/19 23:45 00:43 06:00 WBC 17.2 H RBC 3.15 L Hgb 9.4 L Hct 30 L MCV 95 MCH 30 MCHC 31 RDW 21 H Plt Count 183 MPV 10.2 Neut % (Auto) 89.1 Lymph % (Auto) 3.2 [place] % (Auto) 7.0 Eos % (Auto) 0.3 Baso % (Auto) 0.4 Absolute Neuts (auto) 15.3 H Absolute Lymphs (auto) 0.6 L Absolute Monos (auto) 1.2 H Absolute Eos (auto) 0 Absolute Basos (auto) 0.1 Absolute Nucleated RBC 0 Nucleated RBC % 0 Sodium 144 Potassium 3.7 Chloride 113 H Carbon Dioxide 25 Anion Gap 6 BUN 25 H Creatinine 1.30 H Est GFR ( Amer) 47.5 Est GFR (Non-Af Amer) 39.2 BUN/Creatinine Ratio 19.2 Glucose 100 Calcium 8.0 L Troponin I Blood Type Antibody Screen Crossmatch Transfusion React Rpt Donor Unit # [id number] Post-Trans Blood Type O Positive Post-Trans ALISA Negative 03/08/19 03/08/19 06:00 08:02 WBC 19.5 H RBC 3.67 L Hgb 10.9 L Hct 35 MCV 95 MCH 30 MCHC 32 RDW 20 H Plt Count 175 MPV 10.0 Neut % (Auto) 89.6 Lymph % (Auto) 3.7 [place] % (Auto) 5.8 Eos % (Auto) 0.5 Baso % (Auto) 0.4 Absolute Neuts (auto) 17.5 H Absolute Lymphs (auto) 0.7 L Absolute Monos (auto) 1.1 H Absolute Eos (auto) 0.1 Absolute Basos (auto) 0.1 Absolute Nucleated RBC 0 Nucleated RBC % 0.1 Sodium Potassium Chloride Carbon Dioxide Anion Gap BUN Creatinine Est GFR ( Amer) Est GFR (Non-Af Amer) BUN/Creatinine Ratio Glucose Calcium Troponin I 4.05 H* Blood Type Antibody Screen Crossmatch Transfusion React Rpt Donor Unit # Post-Trans Blood Type Post-Trans ALISA Impression: 83y F w/pmhx of Dementia, Anemia, CAD s/p PCI, Chronic Moderate LV systoic dysfxn with mod , mild/mod AI, mild-mod MR, Mod MS, h/o VT, HLD, HTN, PVD s/p left fem-pop, CKD3, Carotid artery disease with endartectomy 2014 Left and Right 2018, h/o PEG, h/o epistaxis in past; presented on 03/04 to ER with complaints of epistaxis, was treated and discharged home, was given some morphine IV for pain. On 03/06 patient was found by on floor at home, suspected she fell, but no LOC noted. She was brought to ER for weakness, confusion, found to be tachycardic, tachypneic, BP elevated, tmax 100.7. She was confused, appeared lethargic. Initially thought to be possible narcotics causing this and was given narcan by ER, with some improvement in mental status as documented, elevated troponin of 6 , without new overt EKG Changes,? of ST changes , cardiology consulted - LVH with strain pattern, cardiac cath deferred, for conservative medical management , so she was started on IV heparin/asa/plavix, as well as IV abx for possible infection. Developed GI bleed and was transferred to ICU. A -Acute GI bleed -Metabolic encephalopathy on underlying Dementia -NSTEMI -Epistaxis -CKD3 -Chronic Mod LV systolic dysfxn -Mod , AI, MR, MS -PVD Plan: Neuro- -Mental status improved -off restraints now -03/05 CT brain without acute process -underlying Dementia to moderate degree -Delirium prec; avoid BDZ, asp prec -haldol PRN for delirium would be appropriate CVS- -BP stable, HR stable -cont coreg 6.25; incr hydralazine 50mg po tid -NSTEMI, trop downtrending -possible d/c heparin today; cont DAPT -conservative NSTEMI management; IV heparin/asa/plavix/statin -PRN NTG or Morphine as needed for any resp distress -no signs of volume overload noted -TTE - lvef 40-45%, similar previous valvular abn, unchanged -Maintain MAP>65 Resp- -on oximask 10L; will titrate to O2 sat 92% - Mild resp distress noted, improving after nasal packing was removed -Lungs with mild rales -CXR ?bibasilar or more so left basal infiltrate -empiric IV abx, d/c if afebrile for 48 hrs -epistaxis - nasal rockets removed;no oozing -?prednisone tx? chronic COPD? -Bronchodilators PRN, Aspiration prec, Pulmonary Toilet ID- low grade fever, leucocytosis -CXR possible infiltrate -multifactorial cause of elevated WBC and low grade fever without clear large infectious source; NSTEMI may cause these signs too -for now cont with IV abx zosyn (day#4) ; d/c if afebrile for 48 hrs GI- -cardiac puree diet for now, advance as tolerated -GI prophylaxis Renal- -CKD3, CR baseline ~1.4-1.7; stable -making urine; K okay; no acidosis -follow urine output -strict I/O, replete to keep K>4, Mg>2 -fregoso as indicated Heme- hg slight drop; plt stable -heme occult+; Gi bleed, heparin stopped -f/u h/h closely -IV heparin for ACS, held due to GI bleed, cardiology f/u noted -monitor for bleeding Endo- Maintain BG<200, insulin protocol as needed Musculsk- pressure ulcer prophylaxis. Bedrest. Wounds- none Nutrition- cardiac diet trial DVT prophylaxis: SCDs, IV heparin d/jacek GI prophylaxis: - PPI Possible transfer to monitored bed if stable Critical care will follow as needed, will allow primary team to manage ongoing issues Code Status: DNR
[2019-03-08] MEDS: Vancomycin(*) 1,000 MG in NS 0.9% 250 ML* 250 ML IVPB SCH (12:10)
--- NOTE | 2019-03-08 13:47 | PN ---
Subjective Date of Service: 03/08/19 Interval History: Seen in ICU this morning. Noted to be tacchypneic. decrease oxygen saturation to 88-90%. She still have the nasal rockets. Family not at bedside. Low grade fever and wbc increasing Past Medical History: Unchanged from Admission Objective Active Medications: Acetaminophen (Tylenol Tab*) 975 mg PO Q8H PRN PRN Reason: FEVER/PAIN Acetaminophen (Tylenol Supp*) 650 mg NC Q4H PRN PRN Reason: FEVER OR PAIN Last Admin: 03/08/19 10:40 Dose: 650 mg Amiodarone HCl (Cordarone Tab*) 50 mg PO DAILY [facility] Last Admin: 03/08/19 07:57 Dose: 50 mg Atorvastatin Calcium (Lipitor*) 40 mg PO BEDTIME [facility] Last Admin: 03/07/19 20:36 Dose: 40 mg Carvedilol (Coreg Tab*) 12.5 mg PO BID [facility] Last Admin: 03/08/19 08:47 Dose: 6.25 mg Escitalopram Oxalate (Lexapro *) 10 mg PO QAM [facility] Last Admin: 03/08/19 07:56 Dose: 10 mg Gabapentin (Neurontin Cap(*)) 600 mg PO BEDTIME [facility] Last Admin: 03/07/19 20:36 Dose: 600 mg Hydralazine HCl (Apresoline Tab*) 50 mg PO BID [facility] Last Admin: 03/08/19 07:58 Dose: 50 mg Hydralazine HCl (Apresoline Iv*) 5 mg IV SLOW PU Q4H PRN PRN Reason: SBP>160 Last Admin: 03/08/19 06:38 Dose: 5 mg Piperacillin Sod/Tazobactam (Sod 3.375 gm/ Sodium Chloride) 100 mls @ 25 mls/ hr IVPB Q8H [facility] Last Admin: 03/08/19 11:00 Dose: 25 mls/hr Pantoprazole Sodium (Protonix Iv Bag*) 80 mg in 250 mls @ 25 mls/hr IVPB Q10H [facility] Last Admin: 03/08/19 12:39 Dose: 25 mls/hr Vancomycin HCl 1,000 mg/ (Sodium Chloride) 250 mls @ 166.667 mls/hr IVPB Q24H [facility] Last Admin: 03/08/19 12:10 Dose: 166.667 mls/hr Magnesium Oxide (Magox 400 Tab*) 400 mg PO DAILY [facility] Last Admin: 03/08/19 07:57 Dose: 400 mg Metoprolol Tartrate (Lopressor Iv*) 5 mg IV Q6H PRN PRN Reason: Blood Pressure>160 and HR>100 Last Admin: 03/08/19 04:35 Dose: 5 mg Nitroglycerin (Nitroglycerin Tab 0.4 Mg*) 0.4 mg SL Q5M PRN PRN Reason: PAIN - CHEST Pharmacy Consult (Zosyn Per Pharmacy*) 1 note FOLLOW UP .ZOSYN PER PHARMACY [facility] Pharmacy Consult (Vancomycin Per Pharmacy*) 1 note FOLLOW UP .VANC PER PHARMACY [facility] Pharmacy Profile Note (Vancomycin Trough Check) 1 note FOLLOW UP 1130 ONE Stop: 03/10/19 11:31 Potassium Chloride (Klor-Con Liquid*) 20 meq PO DAILY [facility] Last Admin: 03/08/19 08:00 Dose: 20 meq Prednisone (Deltasone Tab*) 10 mg PO DAILY [facility] Last Admin: 03/08/19 07:56 Dose: 10 mg Vital Signs - 8 hr 03/08/19 03/08/19 03/08/19 06:00 06:01 06:31 Temperature 100.4 F 100.6 F 100.6 F Pulse Rate 98 102 116 Respiratory 34 21 30 Rate Blood Pressure 159/104 205/109 (mmHg) O2 Sat by Pulse 96 96 96 Oximetry 03/08/19 03/08/19 03/08/19 06:35 06:43 06:46 Temperature 100.6 F 100.8 F 100.8 F Pulse Rate 107 103 103 Respiratory 26 26 26 Rate Blood Pressure 211/97 197/85 177/91 (mmHg) O2 Sat by Pulse 96 95 97 Oximetry 03/08/19 03/08/19 03/08/19 07:00 07:01 07:16 Temperature 100.8 F 100.8 F 100.6 F Pulse Rate 114 116 107 Respiratory 31 25 38 Rate Blood Pressure 136/117 160/93 (mmHg) O2 Sat by Pulse 95 95 95 Oximetry 03/08/19 03/08/19 03/08/19 07:30 07:32 07:46 Temperature 100.2 F 100.0 F 99.9 F Pulse Rate 107 107 111 Respiratory 39 29 31 Rate Blood Pressure 190/85 189/97 (mmHg) O2 Sat by Pulse 97 97 95 Oximetry 03/08/19 03/08/19 03/08/19 08:00 08:01 08:15 Temperature 100.6 F 99.9 F 100.2 F Pulse Rate 101 102 102 Respiratory 33 36 29 Rate Blood Pressure 187/100 (mmHg) O2 Sat by Pulse 97 97 98 Oximetry 03/08/19 03/08/19 03/08/19 08:31 08:46 09:00 Temperature 100.4 F 100.6 F 100.6 F Pulse Rate 115 106 105 Respiratory 30 40 37 Rate Blood Pressure 153/92 168/84 (mmHg) O2 Sat by Pulse 97 96 98 Oximetry 03/08/19 03/08/19 03/08/19 09:01 09:16 09:31 Temperature 100.4 F 100.6 F Pulse Rate 102 102 104 Respiratory 36 34 28 Rate Blood Pressure 169/82 142/82 130/102 (mmHg) O2 Sat by Pulse 98 99 99 Oximetry 03/08/19 03/08/19 03/08/19 09:46 09:53 10:00 Temperature 100.6 F 100.8 F 100.8 F Pulse Rate 114 104 98 Respiratory 20 36 33 Rate Blood Pressure 154/111 160/71 (mmHg) O2 Sat by Pulse 96 93 91 Oximetry 03/08/19 03/08/19 03/08/19 10:01 10:30 10:44 Temperature 100.8 F 100.8 F Pulse Rate 100 97 Respiratory 35 26 38 Rate Blood Pressure 132/89 124/71 (mmHg) O2 Sat by Pulse 94 92 Oximetry 03/08/19 03/08/19 03/08/19 11:00 11:30 12:00 Temperature 100.6 F 100.2 F 99.9 F Pulse Rate 96 90 89 Respiratory 27 19 18 Rate Blood Pressure 132/66 104/53 (mmHg) O2 Sat by Pulse 94 95 94 Oximetry 03/08/19 03/08/19 03/08/19 12:01 12:30 13:00 Temperature 99.9 F 99.7 F 99.5 F Pulse Rate 87 87 87 Respiratory 18 18 16 Rate Blood Pressure 133/55 132/53 123/49 (mmHg) O2 Sat by Pulse 94 94 96 Oximetry Oxygen Devices in Use Now: Simple Face Mask Appearance: awake, tacchypneic and hypoxic with sat 88-90% on 35% VM Eyes: - - EOMI Ears/Nose/Mouth/Throat: - - bilateral nostril rockets in place. crusted blood Neck: Trachea Midline Respiratory: - - rales at bases, taccypneic Abdominal: NL Sounds; No Tenderness; No Distention Extremities: No Edema Skin: No Rash or Ulcers Result Diagrams: 03/08/19 06:00 03/08/19 06:00 Microbiology and Other Data: Microbiology 03/06/19 00:30 Nasal Screen MRSA (PCR) - Final Nasal Mrsa Detected Assess/Plan/Problems-Billing Assessment: 83 year old female was in the ER 24 hrs prior to her admission for epistaxis that required intranasal packing, now present NSTEMI and bilateral pneumonaie that require heparin drip and Zosyn - Patient Problems (1) Non-ST elevated myocardial infarction Current Visit: Yes Status: Acute Code(s): I21.4 - NON-ST ELEVATION (NSTEMI) MYOCARDIAL INFARCTION SNOMED Code(s): 91524959 Comment: - Seen by cardiology, Troponin peaked at 19.55 - There has been discussion with the and cardiolgoy. The did express interest with paliative care consult. I did not catch the myself. I will revisit the ICU to connect with the if he is at bedside. - She is off all anticoagulations (Heparin Drip, Aspirin 81 mg daily and plavix ) due to GI bleed and nose bleed. - Continue Carvedilol 3.125 mg bid, Hydralazine 50 mg bid with good BP control - Cardiology note from today 03/08/19 appreciated. They do want her back on aspirin and plavix once cleared from GI point of view. Will keep Hgb above 8 as per cardio recommendations. I will check CBC in am if stable I will resume plavix and followed by aspirin 24 hrs apart (2) Pneumonia Current Visit: Yes Status: Acute Code(s): J18.9 - PNEUMONIA, UNSPECIFIED ORGANISM SNOMED Code(s): 652169208 Comment: - Continue zosyn day # 4 - WBC continue to trend and low grade fever. I will rechec CXR to reassess. - No diarrhea to be concerned for C-diff. if this to devellop will need to check for C-Diff (3) Acute delirium Current Visit: Yes Status: Acute Code(s): R41.0 - DISORIENTATION, UNSPECIFIED SNOMED Code(s): 0246535 Comment: - was very confused 03/06/19. Better as of 03/07/19 - She did not require any sedations. - Will avoid benzo and will use haldol if needed (4) Epistaxis Current Visit: Yes Status: Acute Code(s): R04.0 - EPISTAXIS SNOMED Code(s) : 668770624 Comment: - continue with nasal rocket, I will ask ICU if they can remove or if she should consult ENT - D/c 24-48 hrs that the heparin drip is off either later today or tomorrow, but with the increase WBC and fever I would like to see if it can be removed today (5) Anemia Current Visit: No Status: Acute Priority: High Onset Date: 03/12/15 Code (s): D64.9 - ANEMIA, UNSPECIFIED SNOMED Code(s): 477182982 Comment: - Mixed chronic and blood loss from (epistaxsis) which could have Melena. - Off the heparin drip aspirin and plavix and conservative treatment and prn transfusion - I appreciate Level Vial Setter input. Started already on protonix drip and GI consulted, Recommended conservative treatment as she is high risk for invasive procedure for now. 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 (7) DVT prophylaxis Current Visit: No Status: Acute Code(s): TTR4064 - SNOMED Code(s): 273668511 Comment: - Off heparin drip will place on SCD while off anticoagulations
[2019-03-08] MEDS: Atorvastatin* 40 MG TAB PO SCH (20:00)
[2019-03-08] MEDS: Gabapentin CAP(*) 300 MG PO SCH (20:09)
[2019-03-09] MEDS: ZOSYN 3.375 GM Q8H IVPB SCH ×6 (01:12→18:06)
[2019-03-09] MEDS: Pantoprazole* 80 mg IN NS 80 MG/250 ML BAG IVPB SCH ×2 (02:57→15:21)
[2019-03-09 06:13] LABS: ABS Basophils 0 10^3/ul (0-0.2); ABS Eosinophils 0.1 10^3/ul (0-0.6); ABS Lymphocytes 0.7 10^3/ul (1.0-4.8); ABS Neutrophils 9.6 10^3/ul (1.5-7.7); ABS Nucleated RBC 0 10^3/ul; Eosinophil % 0.6 %; Hematocrit 34 % (33-41); Hemoglobin 10.9 g/dL (12.0-16.0); Mean Corpuscular HGB Conc 32 g/dL (31-36); Mean Corpuscular Hemoglobin 30 pg (27-31); Mean Corpuscular Volume 94 fL (80-97); Mean Platelet Volume 10.2 fL (7.4-10.4); Nucleated Red Blood Cells % 0.1; Platelet Count 164 10^3/uL (150-450); Red Blood Count 3.66 10^6 /uL (3.70-4.87); Red Cell Distribution Width 19 % (10.5-15); White Blood Count 11.4 10^3/uL (3.5-10.8)
[2019-03-09 06:35] LABS: BUN/Creatinine Ratio 18.5 (8-20); Calcium 8.3 mg/dL (8.6-10.3); EGFR African American 45.4 (>60); EGFR Non-African American 37.5 (>60); Phosphorus 2.8 mg/dL (2.5-5.0); Potassium 3.7 mmol/L (3.5-5.0)
[2019-03-09] MEDS ORDERED: D5W 1/4 NS 1000 ML BAG* 1,000 ML IV SCH (09:00)
[2019-03-09] MEDS: Potassium Chloride LIQUID* 20 MEQ PACKET PO SCH ×2 (09:19→20:28)
[2019-03-09] MEDS: hydrALAZINE TAB* 25 MG PO SCH ×2 (09:19→20:27)
[2019-03-09] MEDS: Carvedilol TAB* 6.25 MG PO SCH ×2 (09:20→20:26)
[2019-03-09] MEDS: predniSONE TAB* 10 MG PO SCH (09:21)
[2019-03-09] MEDS: Magnesium Oxide TAB* 400 MG PO SCH (09:21)
[2019-03-09] MEDS: Escitalopram * 10 MG TAB PO SCH (09:22)
[2019-03-09] MEDS: Amiodarone TAB* 200 MG PO SCH (09:22)
[2019-03-09] MEDS ORDERED: Carvedilol TAB* 6.25 MG PO ONE (11:08)
[2019-03-09] MEDS: Aspirin EC TAB* 81 MG TAB.EC PO SCH (12:24)
[2019-03-09] MEDS: Vancomycin(*) 1,000 MG in NS 0.9% 250 ML* 250 ML IVPB SCH (12:24)
--- NOTE | 2019-03-09 13:56 | PN ---
Subjective Date of Service: 03/09/19 Interval History: Patient seen doing well, pleasant not in any distress. on 4 liters oxygen. taking po well. discussed with cardiology and ok to start aspirin. Her h/H been stable will monitor on aspirin for 2 days and if remains stable will resume plavix afterward. Past Medical History: Unchanged from Admission Objective Active Medications: Acetaminophen (Tylenol Tab*) 975 mg PO Q8H PRN PRN Reason: FEVER/PAIN Acetaminophen (Tylenol Supp*) 650 mg CO Q4H PRN PRN Reason: FEVER OR PAIN Last Admin: 03/08/19 10:40 Dose: 650 mg Amiodarone HCl (Cordarone Tab*) 50 mg PO DAILY [facility] Last Admin: 03/09/19 09:22 Dose: 50 mg Aspirin (Aspirin Ec Tab*) 81 mg PO DAILY [facility] Last Admin: 03/09/19 12:24 Dose: 81 mg Atorvastatin Calcium (Lipitor*) 40 mg PO BEDTIME [facility] Last Admin: 03/08/19 20:00 Dose: 40 mg Carvedilol (Coreg Tab*) 18.75 mg PO BID [facility] Escitalopram Oxalate (Lexapro *) 10 mg PO QAM [facility] Last Admin: 03/09/19 09:22 Dose: 10 mg Gabapentin (Neurontin Cap(*)) 600 mg PO BEDTIME [facility] Last Admin: 03/08/19 20:09 Dose: 600 mg Hydralazine HCl (Apresoline Tab*) 50 mg PO BID [facility] Last Admin: 03/09/19 09:19 Dose: 50 mg Hydralazine HCl (Apresoline Iv*) 5 mg IV SLOW PU Q4H PRN PRN Reason: SBP>160 Last Admin: 03/08/19 06:38 Dose: 5 mg Piperacillin Sod/Tazobactam (Sod 3.375 gm/ Sodium Chloride) 100 mls @ 200 mls/ hr IVPB Q8H [facility] Last Admin: 03/09/19 10:42 Dose: 200 mls/hr Pantoprazole Sodium (Protonix Iv Bag*) 80 mg in 250 mls @ 25 mls/hr IVPB Q10H [facility] Last Admin: 03/09/19 02:57 Dose: 25 mls/hr Vancomycin HCl 1,000 mg/ (Sodium Chloride) 250 mls @ 166.667 mls/hr IVPB Q24H [facility] Last Admin: 03/09/19 12:24 Dose: 100 mls/hr Dextrose/Sodium Chloride (D5w 1/4 Ns 1000 Ml Bag*) 1,000 mls @ 75 mls/hr IV PER RATE [facility] Stop: 03/09/19 23:59 Last Admin: 03/09/19 10:42 Dose: 75 mls/hr Magnesium Oxide (Magox 400 Tab*) 400 mg PO DAILY [facility] Last Admin: 03/09/19 09:21 Dose: 400 mg Metoprolol Tartrate (Lopressor Iv*) 5 mg IV Q6H PRN PRN Reason: Blood Pressure>160 and HR>100 Last Admin: 03/08/19 04:35 Dose: 5 mg Nitroglycerin (Nitroglycerin Tab 0.4 Mg*) 0.4 mg SL Q5M PRN PRN Reason: PAIN - CHEST Pharmacy Consult (Zosyn Per Pharmacy*) 1 note FOLLOW UP .ZOSYN PER PHARMACY [facility] Pharmacy Consult (Vancomycin Per Pharmacy*) 1 note FOLLOW UP .VANC PER PHARMACY [facility] Pharmacy Profile Note (Vancomycin Trough Check) 1 note FOLLOW UP 1130 ONE Stop: 03/10/19 11:31 Potassium Chloride (Klor-Con Liquid*) 20 meq PO BID [facility] Prednisone (Deltasone Tab*) 10 mg PO DAILY [facility] Last Admin: 03/09/19 09:21 Dose: 10 mg Vital Signs - 8 hr 03/09/19 03/09/19 07:12 08:00 Temperature 97.8 F Pulse Rate 97 Respiratory 16 20 Rate Blood Pressure 139/81 (mmHg) O2 Sat by Pulse 98 Oximetry Oxygen Devices in Use Now: Nasal Cannula Appearance: awake, alert. pleasant but disoriented Eyes: No Scleral Icterus Ears/Nose/Mouth/Throat: NL Teeth, Lips, Gums, Mucous Membranes Moist Neck: NL Appearance and Movements; NL JVP, Trachea Midline Respiratory: - - bibasilar crackles Cardiovascular: NL Sounds; No Murmurs; No JVD, - - Murmur present Abdominal: NL Sounds; No Tenderness; No Distention Result Diagrams: 03/09/19 05:05 03/09/19 05:05 Microbiology and Other Data: Microbiology 03/06/19 00:30 Nasal Screen MRSA (PCR) - Final Nasal Mrsa Detected Assess/Plan/Problems-Billing Assessment: 83 year old female was in the ER 24 hrs prior to her admission for epistaxis that required intranasal packing, now present NSTEMI and bilateral pneumonaie that require heparin drip and Zosyn - Patient Problems (1) Non-ST elevated myocardial infarction Current Visit: Yes Status: Acute Code(s): I21.4 - NON-ST ELEVATION (NSTEMI) MYOCARDIAL INFARCTION SNOMED Code(s): 98520187 Comment: - Seen by cardiology, Troponin peaked at 19.55 - I visited with on 03/08/19 and confirmed DNR/DNI. - She is off all anticoagulations (Heparin Drip, Aspirin 81 mg daily and plavix ) due to GI bleed and nose bleed. - Continue Carvedilol increased to 18.75 mg bid, Hydralazine 50 mg bid with good BP control - Cardiology on board, I will started aspirin today and monitor h/h if remain stable will add plavix in 48hrs (2) Pneumonia Current Visit: Yes Status: Acute Code(s): J18.9 - PNEUMONIA, UNSPECIFIED ORGANISM SNOMED Code(s): 872128253 Comment: - Continue zosyn day # 5 and vancomycin. - WBC improved after adding vanco. I would recommend keeping vanco as her fever and wbc increased once off vancomycin (3) Acute delirium Current Visit: Yes Status: Acute Code(s): R41.0 - DISORIENTATION, UNSPECIFIED SNOMED Code(s): 4936569 Comment: - was very confused 03/06/19. Better as of 03/07/19 - She did not require any sedations. - Will avoid benzo and will use haldol if needed (4) Epistaxis Current Visit: Yes Status: Acute Code(s): R04.0 - EPISTAXIS SNOMED Code(s) : 519219256 Comment: - discontinued nasal rocket, (5) Anemia Current Visit: No Status: Acute Priority: High Onset Date: 03/12/15 Code (s): D64.9 - ANEMIA, UNSPECIFIED SNOMED Code(s): 264560845 Comment: - Mixed chronic and blood loss from (epistaxsis) which could have Melena. - Off the heparin drip aspirin and plavix and conservative treatment and prn transfusion - I appreciate [employer] input. Started already on protonix drip and GI consulted, Recommended conservative treatment as she is high risk for invasive procedure for now. Will keep Hgb above 8 as per Cardiology recommendations (6) V-tach Current Visit: No Status: Acute Code(s): I47.2 - VENTRICULAR TACHYCARDIA SNOMED Code(s): 09902033 Comment: - hx of polymorphic V-Tach will Continue Amiodarone. (7) DVT prophylaxis Current Visit: No Status: Acute Code(s): SDM2400 - SNOMED Code(s): 928082427 Comment: - Off heparin drip will place on SCD while off anticoagulations
[2019-03-09] MEDS: Atorvastatin* 40 MG TAB PO SCH (20:24)
[2019-03-09] MEDS: Gabapentin CAP(*) 300 MG PO SCH (20:25)
[2019-03-09] MEDS ORDERED: Melatonin 3 MG TAB PO ONE (21:54)
[2019-03-09] MEDS: Acetaminophen TAB* 325 MG PO PRN (23:07)
[2019-03-10] MEDS: Pantoprazole* 80 mg IN NS 80 MG/250 ML BAG IVPB SCH ×3 (00:01→22:09)
[2019-03-10] MEDS: ZOSYN 3.375 GM Q8H IVPB SCH ×6 (01:51→17:56)
[2019-03-10] MEDS ORDERED: LORazepam INJ* 2 MG/ML 1 ML VIAL IV PUSH ONE (02:55)
[2019-03-10] MEDS: hydrALAZINE IV* 20 MG/ML VIAL IV SLOW PU PRN (04:45)
[2019-03-10] MEDS ORDERED: Haloperidol INJ IV/IM* 5 MG/ML AMP IM ONE (09:02)
--- NOTE | 2019-03-10 09:08 | PN ---
Subjective Date of Service: 03/10/19 Interval History: Very agitated this morning during round. She is refusing her oxygen and saturation is in the 80's, and respiratory rate mid 20's when assessed at bedside. She is trying to climb out of the bed. Attempted several time to redirect her but I was not able too. Staff in the room trying to keep her safe from climbing out of the bed. She did have similar episode when in ICU at that time she did require multiples doses Haldol and helped her tremendously. Past Medical History: Unchanged from Admission Objective Active Medications: Acetaminophen (Tylenol Tab*) 975 mg PO Q8H PRN PRN Reason: FEVER/PAIN Last Admin: 03/09/19 23:07 Dose: 975 mg Acetaminophen (Tylenol Supp*) [address] Q4H PRN PRN Reason: FEVER OR PAIN Last Admin: 03/08/19 10:40 Dose: 650 mg Amiodarone HCl (Cordarone Tab*) 50 mg PO DAILY [facility] Last Admin: 03/09/19 09:22 Dose: 50 mg Aspirin (Aspirin Ec Tab*) 81 mg PO DAILY [facility] Last Admin: 03/09/19 12:24 Dose: 81 mg Atorvastatin Calcium (Lipitor*) 40 mg PO BEDTIME [facility] Last Admin: 03/09/19 20:24 Dose: 40 mg Carvedilol (Coreg Tab*) 18.75 mg PO BID [facility] Last Admin: 03/09/19 20:26 Dose: 18.75 mg Escitalopram Oxalate (Lexapro *) 10 mg PO QAM [facility] Last Admin: 03/09/19 09:22 Dose: 10 mg Gabapentin (Neurontin Cap(*)) 600 mg PO BEDTIME [facility] Last Admin: 03/09/19 20:25 Dose: 600 mg Haloperidol Lactate (Haldol Inj Iv/Im*) 5 mg IM ONCE ONE Stop: 03/10/19 09:03 Hydralazine HCl (Apresoline Tab*) 50 mg PO BID [facility] Last Admin: 03/09/19 20:27 Dose: 50 mg Hydralazine HCl (Apresoline Iv*) 5 mg IV SLOW PU Q4H PRN PRN Reason: SBP>160 Last Admin: 03/10/19 04:45 Dose: 5 mg Piperacillin Sod/Tazobactam (Sod 3.375 gm/ Sodium Chloride) 100 mls @ 200 mls/ hr IVPB Q8H [facility] Last Admin: 03/10/19 01:51 Dose: 100 mls/hr Pantoprazole Sodium (Protonix Iv Bag*) 80 mg in 250 mls @ 25 mls/hr IVPB Q10H [facility] Last Admin: 03/10/19 00:01 Dose: 25 mls/hr Vancomycin HCl 1,000 mg/ (Sodium Chloride) 250 mls @ 166.667 mls/hr IVPB Q24H [facility] Last Admin: 03/09/19 12:24 Dose: 100 mls/hr Magnesium Oxide (Magox 400 Tab*) 400 mg PO DAILY [facility] Last Admin: 03/09/19 09:21 Dose: 400 mg Metoprolol Tartrate (Lopressor Iv*) 5 mg IV Q6H PRN PRN Reason: Blood Pressure>160 and HR>100 Last Admin: 03/08/19 04:35 Dose: 5 mg Nitroglycerin (Nitroglycerin Tab 0.4 Mg*) 0.4 mg SL Q5M PRN PRN Reason: PAIN - CHEST Pharmacy Consult (Zosyn Per Pharmacy*) 1 note FOLLOW UP .ZOSYN PER PHARMACY [facility] Pharmacy Consult (Vancomycin Per Pharmacy*) 1 note FOLLOW UP .VANC PER PH[facility]ACY [facility] Pharmacy Profile Note (Vancomycin Trough Check) 1 note FOLLOW UP 1130 ONE Stop: 03/10/19 11:31 Potassium Chloride (Klor-Con Liquid*) 20 meq PO BID [facility] Last Admin: 03/09/19 20:28 Dose: 20 meq Prednisone (Deltasone Tab*) 10 mg PO DAILY [facility] Last Admin: 03/09/19 09:21 Dose: 10 mg Vital Signs - 8 hr 03/10/19 03/10/19 03/10/19 03:04 04:10 04:15 Temperature 97.7 F Pulse Rate 84 Respiratory 18 18 18 Rate Blood Pressure 163/67 (mmHg) O2 Sat by Pulse 100 Oximetry 03/10/19 08:24 Temperature 98.6 F Pulse Rate 91 Respiratory 22 Rate Blood Pressure 135/68 (mmHg) O2 Sat by Pulse 87 Oximetry Oxygen Devices in Use Now: Nasal Cannula Appearance: Awake, confused and agitated. tyring to climb out of the bed. Exam limited due to lack of cooporations Ears/Nose/Mouth/Throat: - - dry oral mucosa Respiratory: - - tacchypneic, wheezing Cardiovascular: - - tacchcyardic Neurological: - - agitated confused Result Diagrams: 03/09/19 05:05 03/09/19 05:05 Microbiology and Other Data: Microbiology 03/06/19 00:30 Nasal Screen MRSA (PCR) - Final Nasal Mrsa Detected Assess/Plan/Problems-Billing Assessment: 83 year old female was in the ER 24 hrs prior to her admission for epistaxis that required intranasal packing, now present NSTEMI and bilateral pneumonaie that require heparin drip and Zosyn - Patient Problems (1) Acute delirium Current Visit: Yes Status: Acute Code(s): R41.0 - DISORIENTATION, UNSPECIFIED SNOMED Code(s): 3719019 Comment: - was very confused 03/06/19. Better as of 03/07/19 - 03/10/19! Very agitated again today 03/10/19 - I will give haldol 5 mg IM now and reassess - Will avoid benzo (2) Non-ST elevated myocardial infarction Current Visit: Yes Status: Acute Code(s): I21.4 - NON-ST ELEVATION (NSTEMI) MYOCARDIAL INFARCTION SNOMED Code(s): 22946468 Comment: - Seen by cardiology, Troponin peaked at 19.55 - I visited with on 03/08/19 and confirmed DNR/DNI. - She is off all anticoagulations (Heparin Drip, Aspirin 81 mg daily and plavix ) due to GI bleed and nose bleed. - Continue Carvedilol but increased to 18.75 mg bid on 02/06/19, Hydralazine 50 mg bid with good BP control - Cardiology on board, I did start aspirin 03/09/19 and monitor h/h if remain stable will add plavix in 48hrs (03/11/19) (3) Pneumonia Current Visit: Yes Status: Acute Code(s): J18.9 - PNEUMONIA, UNSPECIFIED ORGANISM SNOMED Code(s): 995897098 Comment: - Continue zosyn day # 6 and vancomycin. - WBC improved after adding vanco. I would recommend keeping vanco as her fever and wbc increased once off vancomycin - Afebrile >48 hrs now. WBC this morning pending as she is not cooporating due to altered mental status and agitations. (4) Epistaxis Current Visit: Yes Status: Acute Code(s): R04.0 - EPISTAXIS SNOMED Code(s) : 653731199 Comment: - discontinued nasal rocket, - Stable. H/H this morning 03/10/19 pending due to agitations (5) Anemia Current Visit: No Status: Acute Priority: High Onset Date: 03/12/15 Code (s): D64.9 - ANEMIA, UNSPECIFIED SNOMED Code(s): 808455659 Comment: - Mixed chronic and blood loss from (epistaxsis) which could have Melena. - Off the heparin drip and plavix and conservative treatment and prn transfusion. Aspirin resumed 03/09/19. will need to follow up H/H daily - on protonix drip will change to po bid. GI consulted, Recommended conservative treatment as she is high risk for invasive procedure for now. Will keep Hgb above 8 as per Cardiology recommendations (6) V-tach Current Visit: No Status: Acute Code(s): I47.2 - VENTRICULAR TACHYCARDIA SNOMED Code(s): 93599325 Comment: - hx of polymorphic V-Tach will Continue Amiodarone. - Will check ECG now that we are giving Haldol if Qtc prolonged will D/c Zofran and Lexapro (7) DVT prophylaxis Current Visit: No Status: Acute Code(s): WSI0254 - SNOMED Code(s): 094510322 Comment: - Off heparin drip will place on SCD while off anticoagulations
[2019-03-10] MEDS: hydrALAZINE TAB* 25 MG PO SCH ×2 (11:23→21:42)
[2019-03-10] MEDS ORDERED: Vancomycin Trough Check NOTE FOLLOW UP ONE (11:30)
[2019-03-10] MEDS: Aspirin EC TAB* 81 MG TAB.EC PO SCH (11:38)
[2019-03-10] MEDS: Amiodarone TAB* 200 MG PO SCH (11:38)
[2019-03-10] MEDS: Carvedilol TAB* 6.25 MG PO SCH ×2 (11:38→21:38)
[2019-03-10] MEDS: Escitalopram * 10 MG TAB PO SCH (11:39)
[2019-03-10] MEDS: predniSONE TAB* 10 MG PO SCH (11:40)
[2019-03-10] MEDS: Magnesium Oxide TAB* 400 MG PO SCH (11:40)
[2019-03-10] MEDS: Potassium Chloride LIQUID* 20 MEQ PACKET PO SCH ×2 (11:40→21:44)
[2019-03-10] MEDS: Vancomycin(*) 1,000 MG in NS 0.9% 250 ML* 250 ML IVPB SCH (13:19)
[2019-03-10] MEDS: Acetaminophen TAB* 325 MG PO PRN (16:56)
[2019-03-10] MEDS ORDERED: Albuterol/Ipratropium NEB.SOL* Albuterol 2.5 MG/Ipratropium 0.5 MG 3 ML INH PRN (18:07)
[2019-03-10] MEDS: Atorvastatin* 40 MG TAB PO SCH (21:40)
[2019-03-10] MEDS: Gabapentin CAP(*) 300 MG PO SCH (21:40)
[2019-03-10] MEDS: Melatonin 3 MG TAB PO SCH (22:12)
[2019-03-11] MEDS: ZOSYN 3.375 GM Q8H IVPB SCH ×6 (01:43→17:56)
[2019-03-11 05:29] LABS: ABS Basophils 0.1 10^3/ul (0-0.2); ABS Eosinophils 0.4 10^3/ul (0-0.6); ABS Neutrophils 9.7 10^3/ul (1.5-7.7); ABS Nucleated RBC 0 10^3/ul; Eosinophil % 2.9 %; Hematocrit 36 % (33-41); Hemoglobin 11.4 g/dL (12.0-16.0); Mean Corpuscular HGB Conc 31 g/dL (31-36); Mean Corpuscular Hemoglobin 29 pg (27-31); Mean Corpuscular Volume 93 fL (80-97); Mean Platelet Volume 9.6 fL (7.4-10.4); Nucleated Red Blood Cells % 0; Platelet Count 194 10^3/uL (150-450); Red Blood Count 3.89 10^6 /uL (3.70-4.87); Red Cell Distribution Width 18 % (10.5-15); White Blood Count 12.1 10^3/uL (3.5-10.8)
[2019-03-11] MEDS ORDERED: Naloxone* 0.4 MG/ML 1 ML VIAL IV PUSH PRN (05:47)
[2019-03-11 05:49] LABS: Anion Gap 7 mmol/L (2-11); BUN/Creatinine Ratio 13.4 (8-20); Blood Urea Nitrogen 19 mg/dL (6-24); CO2 Carbon Dioxide 24 mmol/L (22-32); Calcium 8.2 mg/dL (8.6-10.3); Chloride 111 mmol/L (101-111); EGFR African American 42.9 (>60); EGFR Non-African American 35.4 (>60); Glucose 92 mg/dL (70-100); Magnesium 1.6 mg/dL (1.9-2.7); Phosphorus 3.6 mg/dL (2.5-5.0); Potassium 3.4 mmol/L (3.5-5.0); Sodium 142 mmol/L (135-145)
[2019-03-11] MEDS ORDERED: Labetalol IV* 5 MG/ML 20 ML VIAL IV PUSH ONE ×2 (05:58→06:16)
[2019-03-11] MEDS ORDERED: Labetalol IV* 5 MG/ML 20 ML VIAL ONE (06:04)
--- NOTE | 2019-03-11 06:16 | PN ---
Hospitalist Progress Note Date of Service: 03/11/19 83 yo F with PMH CAD s/p PCI, HFpEF (last EF 03/06 45-50%), sig vascular dz with blt endarterctomys and PVD s/p fem-pop, hx of cardiac arrest, hx of vascular dementia, who presented on 03/05 w/ NSTEMI, placed on heparin gtt, hospital course c/b GIB. Baseline mental status combative at times and oriented to self, ambulatory, verbal Paged to bedside at 5:20 AM pt was poorly following commands after she tried to get up out of bed, at my bedside evaluation, responsive only to pain, flacid, R pupil fixed and 2mm, L pupil PEERLA, VS 144/56, HR 80s sinus, RR 18, satting > 90 on facemask at 3L. NIH stroke scale 26. MAR checked: Last meds melatonin 11PM, Gabapentin prior to that, no narcotics on board. Given new neurolgic decompensation with one focal finding (though pupil is pinpoint as opposed to blown) Von [place] initiated Stat head CT, no acute intracranial path Pt transfered to ICU, BP 210/120 now in R arm, discrepancy with L arm 180/110- known hx of subclavian steal Full PE Unresponsive woman, flacid in bed, withdraws to pain, blinks to threat R pupil 2mm fixed, L pupil 3mm reactive RRR no MRG, +JVD 6cm lungs Clear anterior, tachpynea to mid 20s Palpable pulses, no edema UE: No resistance to gravity blt LE: no resistance to gravity blt, muted reflexes No babinsnki Labs ordered, Glu 85, rest are pending Discussion with Neuro, CTA head and neck, she is not a TPA candidate regardless 83 yo F with PMH CAD s/p PCI, HFpEF (last EF 03/06 45-50%), sig vascular dz with blt endarterctomys and PVD s/p fem-pop, hx of cardiac arrest, hx of vascular dementia, who presented on 03/05 w/ NSTEMI, placed on heparin gtt, hospital course c/b GIB who had acute onset change in mental status, with focal finding. Von Ennis called Ddx: Hypertensive emergency? Delirium, seizure, ischemic stroke posterior circulation or brainstem Plan Neuro: Unresponsive and new AMS, unclear etiology -Workup with CTA head and neck, concern for brainstem of vertebral artery path? -No narcotics on board, will push narcan just in case -EEG if indicated -Neuro consult CV: Pump: EF ~50%, LVH, diastolic dysfxn, repeat echo given new/worsening JVD HTN: Presumed emergency, Labetalol 5mg x 2, start nicardapine gtt, does have limb discrepancy in blt arms (subclavian steal), will titrate SBP 185 in lower arm Rhythym: Sinus Ischemia: Admitted with NSTEMI, cath held for GOC EKG NSR with LVH, no new acute STEMI, trops pending Pulm: Stable, order CXR-on prednisone for ? unclear reason Renal: CKD Stage 3 baseline GI: Stable, NPO ID: On Vanco/zosyn for presumed PNA Lines: YOANNA Machado DNR Family called by AMANDO
[2019-03-11] MEDS ORDERED: Magnesium Sulfate 2 GM IV* 2 GM/50 ML BAG IVPB ONE (06:31)
[2019-03-11] MEDS ORDERED: Iodixanol* (CONTRAST) 320 MG/ML 100 ML SDV IV ONE (06:59)
[2019-03-11] MEDS ORDERED: niCARdipine 0.1MG/ML IVPREMIX* 20 MG/200 ML BAG IV SCH (07:00)
[2019-03-11] MEDS ORDERED: Metoprolol Tartrate IV* 1 MG/ML 5 ML VIAL ONE (07:32)
[2019-03-11] MEDS: Metoprolol Tartrate IV* 1 MG/ML 5 ML VIAL IV PRN ×2 (07:35→14:41)
[2019-03-11] MEDS: KCL 20 MEQ/100 ML IVPREMIX* 20 MEQ/100 ML BAG IV SCH ×2 (08:03→13:19)
--- NOTE | 2019-03-11 08:24 | PN ---
Date of Service: 03/11/19 Vital Signs: Temp Pulse Resp BP SpO2 FiO2 98.8 F 84 29 219/103 92 35 03/11/19 08:05 03/11/19 07:15 03/11/19 07:15 03/11/19 07:15 03/11/19 07:15 03/08 04:00 Physical Exam: Gen: Confused, arousable, verbal response inappropriate HEENT: Atraumatic, normocephalic, pupils unequal at baseline - right 1mm and reactive, left 3mm reactive Lungs: clear bilaterally to ausculatation Cardiac: normal S1 S2, no murmurs, gallops or rubs, RSR on tele Abdomen: soft, benign, pso BS x4Quad, no hepatomegaly Extremities: no clubbing, no cyanosis, no edema, ecchymosis noted to left samuel and hand left dorsal aspect, per RN, buttocks red 2/2 incontinence but no ope wounds Neuro: Confused, GCS = 12 Fluid Balance (Past 24 Hours): I= O= Net Intake & Output 03/09/19 03/10/19 03/11/19 03/12/19 06:59 06:59 06:59 06:59 Intake Total 922 3575 1756 Output Total 750 875 850 Balance 172 2700 906 Weight 134 lb Intake: IV Fluids 57 1038 524 ABX - VANCOMYCIN 250 ABX - ZOSYN 40 120 D5W 330 NS 0.9% 17 25 protonix 313 524 IVPB 486 877 197 ABX - VANCOMYCIN 265 ABX - ZOSYN 221 100 protonix 777 197 Medicated IV 199 GEN - Pantoprazole/ 199 Protonix Oral 180 1660 1035 Output: Urine 10 [place] 740 875 850 Other: Estimated Void Medium Date of Last Bowel 03/08/19 Movement # Bowel Movements 1 1 Estimated Stool Amount Medium Small Labs: Laboratory Results - last 24 hr 03/11/19 03/11/19 05:15 05:15 WBC 12.1 H RBC 3.89 Hgb 11.4 L Hct 36 MCV 93 MCH 29 MCHC 31 RDW 18 H Plt Count 194 MPV 9.6 Neut % (Auto) 79.9 Lymph % (Auto) 8.0 Mayes % (Auto) 8.5 Eos % (Auto) 2.9 Baso % (Auto) 0.7 Absolute Neuts (auto) 9.7 H Absolute Lymphs (auto) 1.0 Absolute Monos (auto) 1.0 H Absolute Eos (auto) 0.4 Absolute Basos (auto) 0.1 Absolute Nucleated RBC 0 Nucleated RBC % 0 Sodium 142 Potassium 3.4 L Chloride 111 Carbon Dioxide 24 Anion Gap 7 BUN 19 Creatinine 1.42 H Est GFR ( Amer) 42.9 Est GFR (Non-Af Amer) 35.4 BUN/Creatinine Ratio 13.4 Glucose 92 Calcium 8.2 L Phosphorus 3.6 Magnesium 1.6 L Studies: Patient Name: KEESHA DOTSON Medical Record#: [id number] Ordering Physician: Cornelia Graham MD Acct.#: [id number] : 1935 Age: 83 Sex: F [facility] Exam Date: 03/11/19517 ADM Status: ADM IN Order Information: CT BRAIN WO EXAM: CT Head Without Contrast EXAM DATE/TIME: 03/11/2019 5:29 AM CLINICAL HISTORY: 83 years old, female; Signs and symptoms; Altered mental status/memory loss; Additional info: Acute change in ms TECHNIQUE: Imaging protocol: Axial computed tomography images of the head/brain without contrast. STROKE PROTOCOL was implemented. Radiation optimization: All CT scans at this facility use at least one of these dose optimization techniques: automated exposure control; mA and/or kV adjustment per patient size (includes targeted exams where dose is matched to clinical indication); or iterative reconstruction. COMPARISON: BRAIN WO CT BRAIN WO 03/05/2019 6:15 PM FINDINGS: Brain: There is moderate diffuse cerebral atrophy present, consistent with this patient's age. There is moderate diffuse heterogeneity of the white matter attenuation, consistent with chronic white matter ischemic changes. Ventricles: Normal. No ventriculomegaly. Bones/joints: Unremarkable. No acute fracture. Sinuses: Visualized sinuses are unremarkable. No acute sinusitis. Mastoid air cells: Visualized mastoid air cells are unremarkable. No mastoid effusion. Soft tissues: Unremarkable. IMPRESSION: No acute intracranial pathology visualized. ASSESSMENT: ASPECTS (Carmen Stroke Program Early CT Score) is 10. Patient Name: KEESHA DOTSON Medical Record#: [id number] Ordering Physician: Cornelia Graham MD Acct.#: [id number] : 1935 Age: 83 Sex: F Location: [facility] Exam Date: 03/11/19 0534 ADM Status: ADM IN Order Information: CHEST AP OR PORT Accession Number: [id number] CPT: 87818 HISTORY: [place] COMPARISONS: March 08, 2019 VIEWS: 1: frontal AP view of the chest at 6:32 AM FINDINGS: LINES AND TUBES: None. CARDIOMEDIASTINAL SILHOUETTE: The cardiomediastinal silhouette is normal for portable technique. PLEURA: The costophrenic angles are sharp. No pleural abnormalities are noted. LUNG PARENCHYMA: There is prominence of the central pulmonary vasculature. There is patchy alveolar opacification of the left lower lung. There is hyperinflation. ABDOMEN: The upper abdomen is clear. There is no subphrenic gas. BONES AND SOFT TISSUES: No bone or soft tissue abnormalities are noted. IMPRESSION: PULMONARY VASCULAR CONGESTION WITH LEFT BASILAR ATELECTASIS VERSUS CONSOLIDATION Impression: 83 year old female was in the ER 24 hrs prior to her admission for epistaxis that required intranasal packing, presented with NSTEMI and bilateral pneumonia requiring heparin drip and Zosyn; overnight code bo called, patient was flaccid and unresponsive and upgraded to ICU overnight. 1. Unresponsive - Now awake and confused/at baseline - CT head negative as above, pending CTA, neurology following - Unable to obtain central line, PICC line placed 2. Accelerated Hypertension - No response to labetalol or lopressor IV - Left 18g EJ placed for cardene drip, then infiltrated, please see nursing note - Cardene drip providing adequate BP control 3. NSTEMI - No AC 2/2 GI bleed - Continue coreg, low dose ASA restarted, monitor for S/S bleeding 4. PNA - afebrile, no leukocytosis - day 7 vanco/zosyn 5. Anemia - 2/2 GIB and epistaxis now resolved - Continue protonix - Continue conservative management 6. Hx of Vtach - Continue amiodarone and monitor QT Plan: Disposition: If CTA of head negative and BP stable, DC cardene drip and downgrade to floor. Advised Dr. Soria, Lead Hospitalist of downgrade. Critical Care Time: 75 minutes
[2019-03-11] MEDS ORDERED: Midazolam* 1 MG/ML 10 ML VIAL (10 MG) IV ONE (08:32)
[2019-03-11] MEDS ORDERED: Metoprolol Tartrate IV* 1 MG/ML 5 ML VIAL IV ONE (09:00)
[2019-03-11] MEDS: Carvedilol TAB* 25 MG PO SCH ×2 (09:20→21:09)
[2019-03-11] MEDS ORDERED: Ondansetron INJ* 2 MG/ML VIAL ONE (09:31)
[2019-03-11] MEDS: Escitalopram * 10 MG TAB PO SCH (09:38)
[2019-03-11] MEDS: Amiodarone TAB* 200 MG PO SCH (09:38)
[2019-03-11] MEDS: Magnesium Oxide TAB* 400 MG PO SCH (09:38)
[2019-03-11] MEDS: Aspirin EC TAB* 81 MG TAB.EC PO SCH (09:38)
[2019-03-11] MEDS: Pantoprazole TAB * 40 MG TAB PO SCH ×2 (09:39→21:08)
[2019-03-11] MEDS: predniSONE TAB* 10 MG PO SCH (09:39)
[2019-03-11] MEDS: Potassium Chloride LIQUID* 20 MEQ PACKET PO SCH ×2 (09:39→21:16)
[2019-03-11] MEDS ORDERED: Ondansetron INJ* 2 MG/ML VIAL IV PRN (09:54)
[2019-03-11] MEDS ORDERED: Midazolam* 1 MG/ML 5 ML VIAL (5 MG) SLOW PUSH ONE (11:08)
[2019-03-11 11:54] LABS: Vancomycin Random 10.1 mcg/mL
[2019-03-11] MEDS: Vancomycin(*) 1,000 MG in NS 0.9% 250 ML* 250 ML IVPB SCH (13:04)
[2019-03-11] MEDS ORDERED: hydrALAZINE IV* 20 MG/ML VIAL IV SLOW PU PRN (13:06)
[2019-03-11 14:49] LABS: ALT 18 U/L (7-52); AST 25 U/L (13-39); Albumin 2.6 g/dL (3.2-5.2); Albumin/Globulin Ratio 1.1 (1-3); Alkaline Phosphatase 46 U/L (34-104); Globulin 2.3 g/dL (2-4); Total Protein 4.9 g/dL (6.4-8.9)
[2019-03-11 14:53] LABS: Troponin I 2.55 ng/mL (<0.04)
[2019-03-11 15:04] LABS: TSH (Thyroid Stimulating Horm) 3.75 mcIU/mL (0.34-5.60)
[2019-03-11 16:32] LABS: INR 1.03 (0.77-1.02)
[2019-03-11] MEDS: Atorvastatin* 40 MG TAB PO SCH (21:07)
[2019-03-11] MEDS: Gabapentin CAP(*) 300 MG PO SCH (21:09)
[2019-03-11] MEDS: Melatonin 3 MG TAB PO SCH (21:13)
[2019-03-12] MEDS: ZOSYN 3.375 GM Q8H IVPB SCH ×4 (02:14→09:47)
[2019-03-12] MEDS: Escitalopram * 10 MG TAB PO SCH (09:39)
[2019-03-12] MEDS: Acetaminophen TAB* 325 MG PO PRN ×2 (09:41→23:39)
[2019-03-12] MEDS: Aspirin EC TAB* 81 MG TAB.EC PO SCH (09:43)
[2019-03-12] MEDS: Pantoprazole TAB * 40 MG TAB PO SCH ×2 (09:43→21:51)
[2019-03-12] MEDS: Magnesium Oxide TAB* 400 MG PO SCH (09:43)
[2019-03-12] MEDS: predniSONE TAB* 10 MG PO SCH (09:43)
[2019-03-12] MEDS: Potassium Chloride LIQUID* 20 MEQ PACKET PO SCH ×2 (09:44→21:49)
[2019-03-12] MEDS: Amiodarone TAB* 200 MG PO SCH (09:44)
[2019-03-12] MEDS: Carvedilol TAB* 25 MG PO SCH ×2 (09:45→21:51)
[2019-03-12] MEDS ORDERED: Carvedilol TAB* 25 MG PO SCH (10:00)
[2019-03-12] MEDS: Vancomycin(*) 1,000 MG in NS 0.9% 250 ML* 250 ML IVPB SCH (13:00)
--- NOTE | 2019-03-12 15:54 | PN ---
Subjective Date of Service: 03/12/19 Interval History: Events of last 36 hours reviewed. Patient was in ICU yesterday morning, unresponsive, had code [place], CT showed no stroke. CTA also showed no acute occlusion. She had severely high BP readings, attempted treatment w/ IV metoprolol, hydralazine. Now on floor, doing better. She is awake and alert. Denies chest pain. Has some dyspnea at rest. Has known subclavian stenosis, LT arm reads 30 points lower systolic than RT. RT is restricted due to PICC. Family History: Unchanged from Admission Social History: Unchanged from Admission Past Medical History: Unchanged from Admission Objective Active Medications: Acetaminophen (Tylenol Tab*) 975 mg PO Q8H PRN PRN Reason: FEVER/PAIN Last Admin: 03/12/19 09:41 Dose: 975 mg Acetaminophen (Tylenol Supp*) 650 mg [place] Q4H PRN PRN Reason: FEVER OR PAIN Last Admin: 03/08/19 10:40 Dose: 650 mg Albuterol/Ipratropium (Duoneb (Albuterol 2.5 Mg/Ipratropium 0.5 Mg)) 1 neb INH Q4H PRN PRN Reason: SOB/WHEEZING Amiodarone HCl (Cordarone Tab*) 50 mg PO DAILY [facility] Last Admin: 03/12/19 09:44 Dose: 50 mg Aspirin (Aspirin Ec Tab*) 81 mg PO DAILY [facility] Last Admin: 03/12/19 09:43 Dose: 81 mg Atorvastatin Calcium (Lipitor*) 40 mg PO BEDTIME [facility] Last Admin: 03/11/19 21:07 Dose: 40 mg Carvedilol (Coreg Tab*) 12.5 mg PO Q12HR [facility] Escitalopram Oxalate (Lexapro *) 10 mg PO QAM [facility] Last Admin: 03/12/19 09:39 Dose: 10 mg Gabapentin (Neurontin Cap(*)) 600 mg PO BEDTIME [facility] Last Admin: 03/11/19 21:09 Dose: 600 mg Heparin Sodium (Porcine) (Heparin Flush Picc/Ml/Cvc(*)) 1 - 3 ml FLUSH 0600, 1800 [facility]; Protocol Last Admin: 03/12/19 05:22 Dose: 2 ml Hydralazine HCl (Apresoline Iv*) 5 mg IV SLOW PU Q6H PRN PRN Reason: SBP >165 DBP >90 Last Admin: 03/11/19 14:04 Dose: 5 mg Piperacillin Sod/Tazobactam (Sod 3.375 gm/ Sodium Chloride) 100 mls @ 200 mls/ hr IVPB Q8H [facility] Last Admin: 03/12/19 09:47 Dose: 200 mls/hr Vancomycin HCl 1,000 mg/ (Sodium Chloride) 250 mls @ 166.667 mls/hr IVPB Q24H [facility] Last Admin: 03/12/19 13:00 Dose: 166.667 mls/hr Magnesium Oxide (Magox 400 Tab*) 400 mg PO DAILY [facility] Last Admin: 03/12/19 09:43 Dose: 400 mg Melatonin (Melatonin) 3 mg PO BEDTIME [facility] Last Admin: 03/11/19 21:13 Dose: 3 mg Naloxone HCl (Narcan*) 0.4 mg IV PUSH Q2M PRN PRN Reason: BEHAVIOR Nitroglycerin (Nitroglycerin Tab 0.4 Mg*) 0.4 mg SL Q5M PRN PRN Reason: PAIN - CHEST Ondansetron HCl (Zofran Inj*) 4 mg IV Q4H PRN PRN Reason: NAUSEA Pantoprazole Sodium (Protonix Tab*) 40 mg PO BID [facility] Last Admin: 03/12/19 09:43 Dose: 40 mg Pharmacy Consult (Zosyn Per Pharmacy*) 1 note FOLLOW UP .ZOSYN PER PHARMACY [facility] Pharmacy Consult (Vancomycin Per Pharmacy*) 1 note FOLLOW UP .VANC PER PHARMACY [facility] Potassium Chloride (Klor-Con Liquid*) 20 meq PO BID [facility] Last Admin: 03/12/19 09:44 Dose: 20 meq Prednisone (Deltasone Tab*) 10 mg PO DAILY [facility] Last Admin: 03/12/19 09:43 Dose: 10 mg Vital Signs - 8 hr 03/12/19 03/12/19 03/12/19 08:00 09:20 11:52 Temperature 36.3 C Pulse Rate 80 75 Respiratory 18 16 Rate Blood Pressure 97/50 81/52 (mmHg) O2 Sat by Pulse 98 93 Oximetry Oxygen Devices in Use Now: Nasal Cannula Appearance: alert, cooperative Ears/Nose/Mouth/Throat: NL Teeth, Lips, Gums Neck: NL Appearance and Movements; NL JVP Respiratory: Symmetrical Chest Expansion and Respiratory Effort, Clear to Auscultation Cardiovascular: NL Sounds; No Murmurs; No JVD Abdominal: NL Sounds; No Tenderness; No Distention Neurological: - - alert, oriented to place, person Lines/Tubes/Other Access: Clean, Dry and Intact [place], Clean, Dry and Intact PICC Line Nutrition: Taking PO's Result Diagrams: 03/11/19 05:15 03/11/19 05:15 Additional Lab and Data: Laboratory Tests 03/11/19 03/11/19 05:15 16:05 Potassium 3.4 L Lactic Acid 1.2 Magnesium 1.6 L Troponin I 2.55 H* Microbiology and Other Data: Microbiology 03/07/19 23:45 Blood Bag Transfusion Reaction Gram Stain - Final 03/06/19 19:00 Stool Stool Occult Blood (SARAH) - Final 03/06/19 00:30 Nasal Nasal Screen MRSA (PCR) - Final Mrsa Detected 03/05/19 19:05 Urine Urine Culture - Final Enterococcus Faecalis 03/07/19 23:45 Blood Bag Transfusion Reaction Culture - Preliminary 03/07/19 23:45 Blood Bag No Growth Day 4 Assess/Plan/Problems-Billing Assessment: 83 year old female with vascular disease, pneumonia, non-STEMI, recently in ICU for episode unresponsiveness. - Patient Problems (1) Pneumonia Current Visit: Yes Status: Acute Priority: High Code(s): J18.9 - PNEUMONIA , UNSPECIFIED ORGANISM SNOMED Code(s): 754718767 Comment: - Afebrile - Has completed 7 days vanco/zosyn, will discontinue - Will observe for fevers, worsening symptoms (2) Altered mental status Current Visit: Yes Status: Acute Priority: High Code(s): R41.82 - ALTERED MENTAL STATUS, UNSPECIFIED SNOMED Code(s): 167433414 Comment: -Possibly secondary to hypertensive encephalopathy and viral illness on top of her baseline dementia. Also had gabapentin plus melatonin at HS prior to event -Gabapentin dose decreased -Stroke ruled out -will mobilize, fregoso cath removed (3) Non-ST elevated myocardial infarction Current Visit: Yes Status: Acute Priority: Medium Code(s): I21.4 - NON-ST ELEVATION (NSTEMI) MYOCARDIAL INFARCTION SNOMED Code(s): 42216033 Comment: - She is off anticoagulant/antiplatelet (Heparin Drip and plavix) due to GI bleed and nose bleed. Continue ASA 81 qd - Goal BP would be 85-100 systolic in LT arm, which represents 105-120 systolic systemically -Coreg decreased today due to low BP (4) Hypokalemia Current Visit: Yes Status: Acute Priority: Medium Code(s): E87.6 - HYPOKALEMIA SNOMED Code(s): 82273879 Comment: -Will replete KCl -Also need Mg repletion, to allow retention of K (5) Polymyalgia rheumatica Current Visit: No Status: Acute Priority: Low Code(s): M35.3 - POLYMYALGIA RHEUMATICA SNOMED Code(s): 19530279 Comment: -Reduced prednisone to 7.5 mg -continue tramadol Status and Disposition: inpatient, will need SNF-rehab in 1-2 days
[2019-03-12] MEDS: Gabapentin CAP(*) 100 MG PO SCH (21:50)
[2019-03-12] MEDS: Atorvastatin* 40 MG TAB PO SCH (21:53)
[2019-03-12] MEDS: Melatonin 3 MG TAB PO SCH (21:53)
[2019-03-13] MEDS: Loperamide CAP* 2 MG PO PRN ×2 (00:58→04:00)
[2019-03-13 05:22] LABS: ABS Basophils 0.1 10^3/ul (0-0.2); ABS Eosinophils 0.1 10^3/ul (0-0.6); ABS Lymphocytes 0.4 10^3/ul (1.0-4.8); ABS Monocytes 0.9 10^3/ul (0-0.8); ABS Nucleated RBC 0 10^3/ul; Eosinophil % 0.9 %; Hematocrit 35 % (33-41); Hemoglobin 11.1 g/dL (12.0-16.0); Lymphocyte % 2.5 %; Mean Corpuscular HGB Conc 32 g/dL (31-36); Mean Corpuscular Hemoglobin 30 pg (27-31); Mean Corpuscular Volume 93 fL (80-97); Mean Platelet Volume 9.9 fL (7.4-10.4); Nucleated Red Blood Cells % 0; Platelet Count 220 10^3/uL (150-450); Red Blood Count 3.76 10^6 /uL (3.70-4.87); Red Cell Distribution Width 17 % (10.5-15); White Blood Count 16.6 10^3/uL (3.5-10.8)
[2019-03-13 05:39] LABS: Anion Gap 6 mmol/L (2-11); BUN/Creatinine Ratio 11.8 (8-20); Blood Urea Nitrogen 18 mg/dL (6-24); CO2 Carbon Dioxide 25 mmol/L (22-32); Calcium 8.6 mg/dL (8.6-10.3); Chloride 111 mmol/L (101-111); EGFR African American 39.6 (>60); EGFR Non-African American 32.7 (>60); Glucose 103 mg/dL (70-100); Magnesium 1.7 mg/dL (1.9-2.7); Potassium 3.8 mmol/L (3.5-5.0); Sodium 142 mmol/L (135-145)
[2019-03-13 05:45] LABS: Troponin I 0.86 ng/mL (<0.04)
[2019-03-13] MEDS: Carvedilol TAB* 25 MG PO SCH ×2 (12:25→21:31)
[2019-03-13] MEDS: predniSONE TAB* 5 MG PO SCH (12:28)
[2019-03-13] MEDS: Amiodarone TAB* 200 MG PO SCH (12:29)
[2019-03-13] MEDS: Pantoprazole TAB * 40 MG TAB PO SCH ×2 (12:31→21:32)
[2019-03-13] MEDS: Potassium Chloride LIQUID* 20 MEQ PACKET PO SCH ×2 (12:31→21:37)
[2019-03-13] MEDS: Aspirin EC TAB* 81 MG TAB.EC PO SCH (12:31)
[2019-03-13] MEDS: Magnesium Oxide TAB* 400 MG PO SCH (12:32)
[2019-03-13] MEDS: Escitalopram * 10 MG TAB PO SCH (12:32)
--- NOTE | 2019-03-13 17:32 | PN ---
Subjective Date of Service: 03/13/19 Interval History: Patient has been alternating between agitation, striking nurses, then calmly talking when is here. After he left, she is now only saying "[place]" and is staring straight ahead. When she was talkative, she was still refusing some interventions. BP has fluctuated widely also. Family History: Unchanged from Admission Social History: Unchanged from Admission Past Medical History: Unchanged from Admission Objective Active Medications: Acetaminophen (Tylenol Tab*) 975 mg PO Q8H PRN PRN Reason: FEVER/PAIN Last Admin: 03/12/19 23:39 Dose: 975 mg Acetaminophen (Tylenol Supp*) 650 mg [place] Q4H PRN PRN Reason: FEVER OR PAIN Last Admin: 03/08/19 10:40 Dose: 650 mg Albuterol/Ipratropium (Duoneb (Albuterol 2.5 Mg/Ipratropium 0.5 Mg)) 1 neb INH Q4H PRN PRN Reason: SOB/WHEEZING Amiodarone HCl (Cordarone Tab*) 50 mg PO DAILY [facility] Last Admin: 03/13/19 12:29 Dose: 50 mg Aspirin (Aspirin Ec Tab*) 81 mg PO DAILY [facility] Last Admin: 03/13/19 12:31 Dose: Not Given Atorvastatin Calcium (Lipitor*) 40 mg PO BEDTIME [facility] Last Admin: 03/12/19 21:53 Dose: 40 mg Carvedilol (Coreg Tab*) 12.5 mg PO Q12HR [facility] Last Admin: 03/13/19 12:25 Dose: 12.5 mg Escitalopram Oxalate (Lexapro *) 10 mg PO QAM [facility] Last Admin: 03/13/19 12:32 Dose: Not Given Gabapentin (Neurontin Cap(*)) 200 mg PO BEDTIME [facility] Last Admin: 03/12/19 21:50 Dose: 200 mg Heparin Sodium (Porcine) (Heparin Flush Picc/Ml/Cvc(*)) 1 - 3 ml FLUSH 0600, 1800 [facility]; Protocol Last Admin: 03/13/19 05:16 Dose: 2 ml Loperamide HCl (Imodium Cap*) 2 mg PO Q3H PRN PRN Reason: DIARRHEA Last Admin: 03/13/19 04:00 Dose: 2 mg Magnesium Oxide (Magox 400 Tab*) 400 mg PO DAILY [facility] Last Admin: 03/13/19 12:32 Dose: Not Given Melatonin (Melatonin) 3 mg PO BEDTIME [facility] Last Admin: 03/12/19 21:53 Dose: 3 mg Nitroglycerin (Nitroglycerin Tab 0.4 Mg*) 0.4 mg SL Q5M PRN PRN Reason: PAIN - CHEST Ondansetron HCl (Zofran Inj*) 4 mg IV Q4H PRN PRN Reason: NAUSEA Pantoprazole Sodium (Protonix Tab*) 40 mg PO BID [facility] Last Admin: 03/13/19 12:31 Dose: Not Given Potassium Chloride (Klor-Con Liquid*) 20 meq PO BID [facility] Last Admin: 03/13/19 12:31 Dose: Not Given Prednisone (Deltasone Tab*) 7.5 mg PO DAILY [facility] Last Admin: 03/13/19 12:28 Dose: 7.5 mg Vital Signs - 8 hr 03/13/19 03/13/19 10:45 15:16 Temperature 36.4 C 36.9 C Pulse Rate 68 85 Respiratory 16 16 Rate Blood Pressure 129/67 179/66 (mmHg) O2 Sat by Pulse 89 92 Oximetry Oxygen Devices in Use Now: Nasal Cannula Appearance: staring ahead, no resp distress Ears/Nose/Mouth/Throat: Clear Oropharnyx Neck: NL Appearance and Movements; NL JVP Respiratory: Symmetrical Chest Expansion and Respiratory Effort Cardiovascular: NL Sounds; No Murmurs; No JVD Extremities: No Edema Neurological: - - responds to voice and touch w/ mono-syllable Lines/Tubes/Other Access: Clean, Dry and Intact Peripheral IV Nutrition: Taking PO's Result Diagrams: 03/13/19 05:00 03/13/19 05:00 Additional Lab and Data: Laboratory Tests 03/13/19 05:00 Magnesium 1.7 L Troponin I 0.86 H* Microbiology and Other Data: Microbiology 03/13/19 03:50 Stool Stool Gross Appearance - Final 03/13/19 03:50 Stool C. difficile DNA Amplification - Final 027 Presumptive NEGATIVE Toxigenic C.diff NEGATIVE 03/07/19 23:45 Blood Bag Transfusion Reaction Culture - Final 03/07/19 23:45 Blood Bag Transfusion Reaction Gram Stain - Final No Growth Day 5 03/06/19 19:00 Stool Stool Occult Blood (SARAH) - Final 03/06/19 00:30 Nasal Nasal Screen MRSA (PCR) - Final Mrsa Detected 03/05/19 19:05 Urine Urine Culture - Final Enterococcus Faecalis Assess/Plan/Problems-Billing Assessment: 83 year old female with vascular disease, pneumonia, non-STEMI, recently in ICU for episode unresponsiveness. - Patient Problems (1) Pneumonia Current Visit: Yes Status: Acute Priority: High Code(s): J18.9 - PNEUMONIA , UNSPECIFIED ORGANISM SNOMED Code(s): 019867793 Comment: - Afebrile off antibiotics - Has completed 7 days vanco/zosyn, - Will observe for fevers, worsening symptoms (2) Altered mental status Current Visit: Yes Status: Acute Priority: High Code(s): R41.82 - ALTERED MENTAL STATUS, UNSPECIFIED SNOMED Code(s): 266246438 Comment: -Gabapentin dose decreased -Stroke ruled out -will mobilize, fregoso cath removed -discussed with Dr. Jorge, patient has moderate vascular dementia -Will discuss goals of care with tomorrow (3) Non-ST elevated myocardial infarction Current Visit: Yes Status: Acute Priority: Medium Code(s): I21.4 - NON-ST ELEVATION (NSTEMI) MYOCARDIAL INFARCTION SNOMED Code(s): 48857315 Comment: - She is off anticoagulant/antiplatelet (Heparin Drip and plavix) due to GI bleed and nose bleed. Continue ASA 81 qd - Goal BP would be 85-100 systolic in LT arm, which represents 105-120 systolic systemically -Coreg increased again due to uncontrolled BP (4) Hypokalemia Current Visit: Yes Status: Acute Priority: Medium Code(s): E87.6 - HYPOKALEMIA SNOMED Code(s): 56394021 Comment: -Repleted KCl, doing well -Also need Mg repletion, to allow retention of K (5) Polymyalgia rheumatica Current Visit: No Status: Acute Priority: Low Code(s): M35.3 - POLYMYALGIA RHEUMATICA SNOMED Code(s): 49489822 Comment: -Reduced prednisone to 7.5 mg, no clear adverse reaction to change -continue tramadol Status and Disposition: inpatient, will need SNF-rehab in 1-2 days
[2019-03-13] MEDS: Magnesium Sulfate 2 GM IV* 2 GM/50 ML BAG IVPB SCH ×2 (18:46→21:42)
[2019-03-13] MEDS: Gabapentin CAP(*) 100 MG PO SCH (21:31)
[2019-03-13] MEDS: Atorvastatin* 40 MG TAB PO SCH (21:32)
[2019-03-13] MEDS: Melatonin 3 MG TAB PO SCH (21:32)
[2019-03-13] MEDS ORDERED: traZODone TAB* 50 MG TAB PO STA (23:42)
[2019-03-13] MEDS ORDERED: LORazepam INJ* 2 MG/ML 1 ML VIAL IV PUSH PRN (23:43)
[2019-03-14] MEDS: Amiodarone TAB* 200 MG PO SCH (10:35)
[2019-03-14] MEDS: Escitalopram * 10 MG TAB PO SCH (10:36)
[2019-03-14] MEDS: Carvedilol TAB* 25 MG PO SCH ×2 (10:37→21:33)
[2019-03-14] MEDS: Aspirin EC TAB* 81 MG TAB.EC PO SCH (10:41)
[2019-03-14] MEDS: Magnesium Oxide TAB* 400 MG PO SCH (10:41)
[2019-03-14] MEDS: Potassium Chloride LIQUID* 20 MEQ PACKET PO SCH ×2 (10:41→21:30)
[2019-03-14] MEDS: Pantoprazole TAB * 40 MG TAB PO SCH ×2 (10:41→21:37)
[2019-03-14] MEDS: predniSONE TAB* 5 MG PO SCH (10:41)
--- NOTE | 2019-03-14 13:06 | PN ---
Subjective Date of Service: 03/14/19 Interval History: Patient alert, cooperative today. in room. Denies trouble eating, had breakfast. No headache, confusion reported overnight. Family History: Unchanged from Admission Social History: Unchanged from Admission Past Medical History: Unchanged from Admission Objective Active Medications: Acetaminophen (Tylenol Tab*) 975 mg PO Q8H PRN PRN Reason: FEVER/PAIN Last Admin: 03/12/19 23:39 Dose: 975 mg Acetaminophen (Tylenol Supp*) 650 mg [place] Q4H PRN PRN Reason: FEVER OR PAIN Last Admin: 03/08/19 10:40 Dose: 650 mg Albuterol/Ipratropium (Duoneb (Albuterol 2.5 Mg/Ipratropium 0.5 Mg)) 1 neb INH Q4H PRN PRN Reason: SOB/WHEEZING Amiodarone HCl (Cordarone Tab*) 50 mg PO DAILY [facility] Last Admin: 03/14/19 10:35 Dose: 50 mg Aspirin (Aspirin Ec Tab*) 81 mg PO DAILY [facility] Last Admin: 03/14/19 10:41 Dose: Not Given Atorvastatin Calcium (Lipitor*) 40 mg PO BEDTIME [facility] Last Admin: 03/13/19 21:32 Dose: Not Given Carvedilol (Coreg Tab*) 25 mg PO Q12HR [facility] Last Admin: 03/14/19 10:37 Dose: 25 mg Escitalopram Oxalate (Lexapro *) 10 mg PO QAM [facility] Last Admin: 03/14/19 10:36 Dose: 10 mg Gabapentin (Neurontin Cap(*)) 200 mg PO BEDTIME [facility] Last Admin: 03/13/19 21:31 Dose: 200 mg Heparin Sodium (Porcine) (Heparin Flush Picc/Ml/Cvc(*)) 1 - 3 ml FLUSH 0600, 1800 [facility]; Protocol Last Admin: 03/14/19 05:33 Dose: 2 ml Loperamide HCl (Imodium Cap*) 2 mg PO Q3H PRN PRN Reason: DIARRHEA Last Admin: 03/13/19 04:00 Dose: 2 mg Lorazepam (Ativan Inj*) 0.5 mg IV PUSH ONCE PRN PRN Reason: For persistent agitation Last Admin: 03/14/19 00:05 Dose: 0.5 mg Magnesium Oxide (Magox 400 Tab*) 400 mg PO DAILY [facility] Last Admin: 03/14/19 10:41 Dose: Not Given Melatonin (Melatonin) 3 mg PO BEDTIME [facility] Last Admin: 03/13/19 21:32 Dose: 3 mg Nitroglycerin (Nitroglycerin Tab 0.4 Mg*) 0.4 mg SL Q5M PRN PRN Reason: PAIN - CHEST Ondansetron HCl (Zofran Inj*) 4 mg IV Q4H PRN PRN Reason: NAUSEA Pantoprazole Sodium (Protonix Tab*) 40 mg PO BID [facility] Last Admin: 03/14/19 10:41 Dose: Not Given Potassium Chloride (Klor-Con Liquid*) 20 meq PO BID [facility] Last Admin: 03/14/19 10:41 Dose: Not Given Prednisone (Deltasone Tab*) 7.5 mg PO DAILY [facility] Last Admin: 03/14/19 10:41 Dose: Not Given Vital Signs - 8 hr 03/14/19 03/14/19 08:00 11:24 Temperature 36.4 C Pulse Rate 81 Respiratory 19 20 Rate Blood Pressure 115/60 (mmHg) O2 Sat by Pulse 98 Oximetry Oxygen Devices in Use Now: None Appearance: alert, cooperative Ears/Nose/Mouth/Throat: Clear Oropharnyx Respiratory: Clear to Auscultation Cardiovascular: NL Sounds; No Murmurs; No JVD Extremities: No Edema Neurological: - - alert, oriented to place, self Lines/Tubes/Other Access: Clean, Dry and Intact Peripheral IV Nutrition: Taking PO's Result Diagrams: 03/13/19 05:00 03/13/19 05:00 Assess/Plan/Problems-Billing Assessment: 83 year old female with vascular disease, pneumonia, non-STEMI, recently in ICU for episode unresponsiveness. - Patient Problems (1) Pneumonia Current Visit: Yes Status: Acute Priority: High Code(s): J18.9 - PNEUMONIA , UNSPECIFIED ORGANISM SNOMED Code(s): 829317676 Comment: - Afebrile off antibiotics - Has completed full week of antibiotics - Will observe for fevers, worsening symptoms (2) Altered mental status Current Visit: Yes Status: Acute Priority: High Code(s): R41.82 - ALTERED MENTAL STATUS, UNSPECIFIED SNOMED Code(s): 321158638 Comment: -Gabapentin and prednisone doses decreased -Stroke ruled out, PMRU not planning to take -Discussed goals of care with , he would agree to SNF-rehab and then home (3) Non-ST elevated myocardial infarction Current Visit: Yes Status: Acute Priority: Medium Code(s): I21.4 - NON-ST ELEVATION (NSTEMI) MYOCARDIAL INFARCTION SNOMED Code(s): 01123539 Comment: - Stable, Continue ASA 81 qd - Goal BP would be 85-100 systolic in LT arm, which represents 105-120 systolic systemically -Coreg increased again, BP in reasonable range (4) Hypokalemia Current Visit: Yes Status: Acute Priority: Medium Code(s): E87.6 - HYPOKALEMIA SNOMED Code(s): 16364336 Comment: -Repleted KCl and Mg, doing well -rechecking tomorrow (5) Polymyalgia rheumatica Current Visit: No Status: Acute Priority: Low Code(s): M35.3 - POLYMYALGIA RHEUMATICA SNOMED Code(s): 26243441 Comment: -Reduced prednisone to 7.5 mg 2 days ago, no clear adverse reaction to change -continue tramadol prn Status and Disposition: will need SNF-rehab when ready
[2019-03-14] MEDS: Gabapentin CAP(*) 100 MG PO SCH (21:34)
[2019-03-14] MEDS: Melatonin 3 MG TAB PO SCH (21:36)
[2019-03-14] MEDS: Atorvastatin* 40 MG TAB PO SCH (21:37)
--- NOTE | 2019-03-15 00:27 | TRS ---
CC: Dr. Gayathri Narvaez, [facility]; Dr. Anderson * TRANSFER SUMMARY: DATE OF ADMISSION: 03/05/19 DATE OF ANTICIPATED TRANSFER: 03/15/19 PRIMARY DIAGNOSIS: Pneumonia with left lower lobe infiltrate visible on chest x - ray. SECONDARY DIAGNOSES: 1. Vascular dementia, varying status consistent with delirium. 2. Non-ST elevation myocardial infarction during this hospital stay. 3. Polymyalgia rheumatica. 4. Possible gastrointestinal bleed. 5. Epistaxis. 6. Chronic kidney disease, stage 3. 7. History of ventricular tachycardia with cardiac arrest. 8. Coronary artery disease, status post percutaneous coronary intervention. 9. Systolic heart failure. 10. Hypertension. 11. Peripheral vascular disease. 12. Iron-deficiency anemia. 13. History of stroke with a complication of carotid endarterectomy. MEDICATIONS ON DISCHARGE: 1. Acetaminophen 650 mg p.o. q.4 hours p.r.n. pain. 2. DuoNeb 1 inhalation q.4 hours p.r.n. shortness of breath. 3. Amiodarone 50 mg p.o. every day. 4. Aspirin 81 mg p.o. every day. 5. Atorvastatin 40 mg p.o. q.h.s. 6. Carvedilol 25 mg p.o. q.12 hours. 7. Lexapro 10 mg p.o. q.a.m. 8. Gabapentin 200 mg p.o. q.h.s. 9. Magnesium oxide 400 mg p.o. every day. 10. Melatonin 3 mg p.o. q.h.s. 11. Nitroglycerin 0.4 mg sublingual q.5 minutes x3. 12. Pantoprazole 40 mg p.o. b.i.d. 13. Potassium chloride liquid 20 mEq p.o. b.i.d. 14. Prednisone 7.5 mg p.o. every day. Important medication changes during the hospital stay: We stopped her trazodone at night. We have decreased her prednisone from 10 to 7.5 mg per day. She has been taken off of Plavix due to epistaxis. Her gabapentin has been decreased due to altered mental status. Her carvedilol has been increased due to labile hypertension. HOSPITAL COURSE: An 83-year-old woman presented to the emergency department on 03/05/19 initially with altered mental status and generalized weakness. She also had epistaxis and received nasal packing. Her initial troponin was 6.36 and has storm to 19.5 peak the day after admission and then reduced to 0.8 on the 03/13/19. She was seen in consultation by Dr. Pleitez of Cardiology and he called the patient and had non-ST elevation AZ and there was a discussion for cardiac catheterization versus a medical management strategy. He was advised to increase the beta mercedes, remain on statin, use heparin IV. Given the epistaxis, there were concerns giving her heparin. The patient was initially managed in the intensive care unit due to the non-ST elevation AZ. She had fevers and possible chest x-ray and was started on intravenous Zosyn and vancomycin for pneumonia. She did tolerate heparin for some days post AZ without increasing epistaxis. On 03/07/19, the patient had a consultation with Dr. Zamora, Palliative Care. At that point, the agreed that she will be do not resuscitate, do not intubate and he probably could not take care of her anymore due to her increasing dementia and confusion. The patient declined palliative care program at that time. The patient also had melena and was seen by Dr. Jeffers of Gastroenterology on 03/07/19. At that point, her hemoglobin had dropped from 9.7 on admission down to 7.1. He was not sure that this was a GI source given the significant epistaxis. She ended up having 2 units of packed red cells at that time and her hemoglobin storm to 11.4 and was 11.1 at discharge. The patient did have any GI procedures during this hospital stay. The patient was transferred to the floor and had some slow improvement. However , on 03/11/19, she had severe hypertension and worsening confusion and was returned to the ICU to rule out stroke. Head CT was negative. CT angiogram also did not show any acute large vessel cutoff or infarct. The patient has significant subclavian stenosis, which leaves her blood pressure in her left arm to be lower than her systemic blood pressure. Probably we could add 20 points to her left arm blood pressure in to get her true central blood pressure. The right arm was restricted from blood pressure checks because of the PICC line. In any case, the patient's hypertensive encephalopathy provisional diagnosis was treated with titration of her blood pressure and her mental status continued to wax and wane, but generally improved. On the day prior to discharge, she was alert, eating, cooperative. The plan is for her to go to short-term rehab at [facility]. If she improves greatly, she could go home with her . If she does not improve, she could be converted to long-term patient. Her diet should be low salt, low fat. Activity would be ambulate with walker as tolerated. Her status while in the hospital was inpatient status. Her condition was guarded but now stable. TIME SPENT: More than 35 minutes was spent today with the patient on examining her and completing the necessary paperwork for discharge to care home tomorrow. [id number]/[facility] #: [id number] COREY
[2019-03-15] MEDS: Loperamide CAP* 2 MG PO PRN (02:31)
[2019-03-15 08:29] VITALS: BP 153/92
[2019-03-15 09:17] LABS: Calcium 8.6 mg/dL (8.6-10.3); Potassium 3.8 mmol/L (3.5-5.0)
[2019-03-15 09:23] LABS: BUN/Creatinine Ratio 16.2 (8-20); EGFR African American 42.9 (>60); EGFR Non-African American 35.4 (>60)
[2019-03-15] MEDS: Amiodarone TAB* 200 MG PO SCH (09:37)
[2019-03-15] MEDS: predniSONE TAB* 5 MG PO SCH (09:38)
[2019-03-15] MEDS: Carvedilol TAB* 25 MG PO SCH (09:39)
[2019-03-15] MEDS: Magnesium Oxide TAB* 400 MG PO SCH (09:39)
[2019-03-15] MEDS: Aspirin EC TAB* 81 MG TAB.EC PO SCH (09:41)
[2019-03-15] MEDS: Escitalopram * 10 MG TAB PO SCH (09:41)
[2019-03-15] MEDS: Pantoprazole TAB * 40 MG TAB PO SCH (09:42)
[2019-03-15] MEDS: Potassium Chloride LIQUID* 20 MEQ PACKET PO SCH (09:43)
--- NOTE | 2019-03-15 14:05 | PN ---
Progress Note - Progress Note Date of Service: 03/15/19 Note: Patient examined, discussed case with . Notabale findings onexam: 2/6 systolic murmur LSB, marked passivity but pleasant demeanor. notes she often declines to eat and appears to have lost weight. He feels her PMR is not causing any sx's at present. I explained to him I would be stopping her melatonin, gabapentin, and escitalopram. Time spent on discharge, including exam of pt, discussion with patient, , CM, nurse, review of EMR and preparation of discharge documents is 40 minutes.
--- NOTE | 2019-03-15 14:36 | TRS ---
ADDENDUM TO TRANSFER SUMMARY DATE OF ADMISSION: 03/05/2019. DATE OF TRANSFER: 03/15/2019. AMENDED DISCHARGE MEDICATION LIST: On discharge, I am discontinuing Gabapentin , Escitalopram, and Melatonin. [id number]/[facility] #: [id number] MTDD
== END 2019-03-15 15:19 | DRG 871 ==
LOC: ED 14:24 → MEDTELE 17:54 → UNDOADMOB 17:54 → OBSVTOIN 17:54 → MEDTELE 21:09 → ICU 21:09 → MEDTELE 03-08 18:07 → ICU 03-11 05:45 → MEDTELE 03-11 16:53
PROVIDERS: ADMIT Internal Medicine; ATTEND Internal Medicine
PROC: 30233N1 Transfusion of Nonautologous Red Blood Cells into Peripheral Vein, Percutaneous Approach (ICD-10-PCS; principal; 2019-03-07)
DX: A41.9 Sepsis, unspecified organism (principal); I21.4 Non-ST elevation (NSTEMI) myocardial infarction; J18.1 Lobar pneumonia, unspecified organism; I13.0 Hypertensive heart and chronic kidney disease with heart failure and stage 1 through stage 4 chronic kidney disease, or unspecified chronic kidney disease; I50.22 Chronic systolic (congestive) heart failure; E87.1 Hypo-osmolality and hyponatremia; F01.50 Vascular dementia, unspecified severity, without behavioral disturbance, psychotic disturbance, mood disturbance, and anxiety; N18.3 Chronic kidney disease, stage 3 (moderate); I73.9 Peripheral vascular disease, unspecified; I25.10 Atherosclerotic heart disease of native coronary artery without angina pectoris; D50.9 Iron deficiency anemia, unspecified; R04.0 Epistaxis; E78.00 Pure hypercholesterolemia, unspecified; M35.3 Polymyalgia rheumatica; Z86.73 Personal history of transient ischemic attack (TIA), and cerebral infarction without residual deficits
CPT/HCPCS: 36415; 36600; 70450; 70496; 70498; 71045; 71250; 80048; 80053; 80202; 80307; 80320; 81003; 81015; 82140; 82270; 82550; 82803; 83605; 83735; 84100; 84443; 84484; 85025; 85610; 85730; 86078; 86850; 86900; 86901; 86922; 87040; 87077; 87086; 87186; 87493; 87641; 87899; 93005; 93306; 97530; 99285; A9270-GY; C1751; G0480; G8978-GP-CJ; G8978-GP-CK; G8979-GP-CH; G8979-GP-CI; G8987-GO-CK; G8988-GO-CI; J0360; J0696; J1630; J1644; J2060; J2250; J2270; J2310; J2405; J2543; J3370; J3475; J3480; J3490; J7512; P9040; Q9967

== ENCOUNTER 2019-04-08 16:58 | Emergency (ER) | payer MEDICARE, OTHER ==
--- OUTSIDE RECORDS SUMMARY | 2019-04-08 17:30 | XMS REPORT | Continuity of Care Document ---
:1935 External Reference #:[id number] Author Name Saud Cornell MD Address [address] [place] [address] Care Team Providers Name Role Phone Grecia Anderson M.D. Primary Care Physician Unavailable Payers Date Identification Numbers Payment Provider Subscriber Effective: 2018 Policy Number: [id number] Medicare-Formerly [facility] Govn SRVS Sirisha Dotson PayID: [id number] [address] [place] [address] Policy Number: [id number] [employer] Sirisha Dotson Group Number: [id number] [id number] Group Name: [id number] [place] [address] PayID: [id number] Advance Directives Description No Information Available Problems Active Problems Provider Date Essential hypertension Onset: 11/03/2008 Bleeding from Nabil Myles MD Onset: 11/02/2015 Bleeding from nose Nabil Simmons MD Onset: 05/04/2018 Acquired deformity of nose AugustoparNabil pinedo MD Onset: 02/11/2019 Family History Date Family Member(s) Observation Comments [...] Never Smoked A Pipe Smoking Status Reviewed: 04/02/19 Never Smoked A Pipe Smokeless Tobacco Never Used Smokeless Tobacco ETOH Use Currently consumes 1 glass of wine per day Tobacco Use Start: Unknown End: Patient is a former smoker Unknown Allergies, Adverse Reactions, Alerts Active Allergies Reaction Severity Comments Date Nuts 11/05/2008 Aspirin 11/05/2008 Codeine 11/05/2008 Ibuprofen 11/05/2008 Cephalexin 11/05/2008 Medications Active Medications SIG Qnty Indications Ordering Provider Date Triamcinolone Acetonide apply three times Unknown Dental Paste a day To 0.1% Paste Mouth/Throat for 10 days Ferrous Sulfate take 1 tablet by Unknown 325(65Fe) mouth once daily mg Tablets DR Potassium Chloride Josi take 1 tablet by Unknown ER mouth once daily 20Meq Tablets ER Prednisone daily Unknown 10mg Tablets Furosemide take 10mg by Unknown 20mg Tablets mouth once daily Carvedilol take 1 tablet by Unknown 3.125mg Tablets mouth twice a day Aspir-81 1 by mouth every Unknown 81mg Tablets DR day Lisinopril 1 by mouth every Unknown 2.5mg Tablets day Ferrous Sulfate 1 by mouth every Unknown 325(65Fe) other day mg Tablets Calcium 600+D 1 by mouth every Unknown 600-800 day Tablets Escitalopram Oxalate Unknown 10mg Tablets Melatonin ER as needed Unknown 3mg Tablets ER Tylenol as needed for Unknown 325mg Tablets pain Gabapentin 1 cap by mouth Prieto Singleton MD 300mg Capsules three times a day Atorvastatin Calcium 1 by mouth every Prieto Singleton MD 40mg day Tablets Vitamin B-12 as directed Prieto Singleton MD 1000mcg Tablets Sub Amiodarone HCL 1 by mouth every Prieto Singleton MD 50mg Tablets day Magnesium Oxide twice daily Prieto Singleton MD 400mg Capsules Clonazepam 2 by at bedtime Prieto Singleton MD 0.5mg Tablets Acidophilus as directed Prieto Singleton MD Capsules Tramadol HCL 1-2 tabs every Juan Aguilar MD 25mg Tablets 4-6 hours as needed pain History Medications Atrovent 2 sprays in each 1units Saud Baez 10/29/2015 - 0.06% nostril twice a MD Kraig 11/01/2018 Solution day as needed Mupirocin apply to both 15 Saud Baez 03/26/2015 - 2% Ointment nostril twice a MD Kraig 06/03/2015 day Bactroban Nasal apply to both 15gm Saud Baez 10/17/2013 - 2% nostrils twice MD Kraig 06/03/2015 Ointment daily for 1 month Biaxin XL 2 po r96qfuld for 28tabs 461.0 Yvon Vizcarra 12/08/2011 - 500mg 14 days Boom Jordan 02/15/2012 Tablets ER 24HR Augmentin 1 po bid 28tabs 461.0 Yvon Vizcarra 12/08/2011 - 875-125mg Boom Jordan 02/15/2012 Tablets Ofloxacin 4 drops in right 1bottle Saud Baez 07/15/2010 - 0.3% ear twice daily MD Kraig 03/24/2011 Solution for 7 days Bacitracin Ointment apply to rim of 1Tube 784.7 Yvon Vizcarra 05/28/2010 - nose both sides in Boom Jordan 02/15/2012 the am and the pm. Zithromax Z-Piero take as directed 1Pack 473.2 Saud Baez 01/13/2010 - 250mg MD Kraig 03/24/2011 Tablets Lortab 7.5 1 po every 4-6 30tabs 784.7 Yvon Vizcarra 01/08/2010 - 7.5-500mg hours prn pain Boom Jordan 02/15/2012 Tablets Vitamin D Saud Baez 12/17/2009 - MD Kraig 12/05/2013 Will Bring A List Of Saud Baez 11/03/2008 - Meds With Her MD Kraig 11/05/2008 Pantoprazole Sodium Unknown - 12/05/2013 Loperamide HCL Unknown - 12/05/2013 Oxybutynin Chloride Unknown - ER 12/05/2013 Bactroban apply intranasal Unknown - 2% Ointment twice a day 08/17/2017 Hydrocodone 1-2 by mouth every Prieto Singleton - Bitartrate/Acetamino 6 as needed 09/02/2015 phen 5-300mg Tablets Clopidogrel 1 by mouth every Prieto Singleton - Bisulfate day 08/17/2017 75mg Tablets Potassium Chloride 1 by mouth twice a Prieto Singleton - ER day 11/01/2018 10Meq Capsules ER Poly-Iron 150 As directed Prieto Singleton - 150mg 08/17/2017 Capsules Aspirin Adult Low 1 by mouth daily Prieto Singleton - Dose 08/17/2017 81mg Tablets Metoprolol Tartrate 1/2 tab by mouth Prieto Singleton - daily 08/17/2017 25mg Tablets Pantoprazole Sodium 1 by mouth every Prieto Singleton - day 08/17/2017 40mg Tablets Premjuanita 1 by mouth every Prieto Singleton - 0.3mg day 08/17/2017 Tablets Estrogen as directed Juan Aguilar MD - 08/17/2017 Lexapro 1 by mouth every Grecia Anderson - 5mg Tablets day M.D. 11/01/2018 Amoxicillin/Clavulan take 1 tablet by Unknown - ate Potassium mouth twice a day 05/25/2018 for 7 days 875-125mg Tablets Clopidogrel Unknown - Bisulfate 11/01/2018 75mg Tablets Prednisone 2 tabs 5 days a Unknown - 8mg week 02/26/2019 Tablets Metoprolol Succinate 1/2 by mouth every Unknown - ER day 02/26/2019 25mg Tablets ER 24HR Plavix 1 by mouth every Unknown - 75mg Tablets day 04/01/2019 Atenolol Unknown - 12/17/2009 Enalapril Maleate Unknown - 12/17/2009 Singulair Unknown - 12/17/2009 Clonazepam Unknown - 12/17/2009 Zocor Unknown - 12/17/2009 Lexapro Unknown - 12/17/2009 Tylenol Unknown - 12/17/2009 Clonazepam Unknown - 06/03/2015 Atenolol Unknown - 12/05/2013 Simvastatin Unknown - 06/03/2015 Singulair Unknown - 02/15/2012 Citalopram Unknown - Hydrobromide 02/15/2012 Cozaar Unknown - 02/15/2012 Acidophilus Unknown - 06/03/2015 Tylenol Unknown - 06/03/2015 Budesonide Unknown - Micronized 02/15/2012 Amlodipine Unknown - 5mg 06/03/2015 Tablets Sertraline HCL Unknown - 10/17/2013 Hydrocodone Unknown - Bitartrate 06/03/2015 Escitalopram Oxalate Unknown - 06/03/2015 Immunizations CPT Code Status Date Vaccine Lot # 51518 Given 08/11/2014 Influenza Virus Vaccine, 3 Years Of Age And Above, Intramuscular 95485 Given Unknown Pneumococcal Vaccine 2Yrs Or Older [id number] Ordered 09/03/2015 Influenza Virus Vaccine, 3 Years Of Age And Above, Intramuscular Vital Signs Date Vital Result Comment 04/02/2019 10:32am Weight 125.00 lb Weight 56.700 kg Height 60.75 inches 5'0.75" Height in cm's 154.3 cm BMI (Body Mass Index) 23.8 kg/m2 02/26/2019 2:41pm Weight 125.00 lb Weight 56.700 [...] Result H/L Range Note Comp Metabolic 05/29/2018 [facility] Sodium 141 mmol/ L N 135-145 Panel c/o [place] [address] [phone] Potassium 4.9 mmol/L N 3.5-5.0 Chloride 103 [...] Egfr 39.7 >60 1 Laboratory test 05/29/2018 [facility] Magnesium 1.9 mg /dL N 1.9-2.7 finding c/o Department of Laboratories [place], [place] [id number] [phone] C Reactive Protein 23.57 mg/L High <8.01 Ferritin 32.2 ng/mL N 11-307 Vitamin B12 > 1450 pg/mL High 180-914 2 CBC Auto Diff 05/29/2018 [facility] White Blood 7.3 10 ^3/uL N 3.5-10.8 c/o Department [place] [address] [phone] Red Blood Count 3.57 10^6/uL Low 4.00-5.40 [...] Blood Cells % 0 Laboratory test 05/29/2018 [facility] Erythrocyte Sed 47 mm/Hr High 0-40 finding c/o Department [place] [address] [phone] Laboratory test 12/08/2011 [facility] Culture -------- - 3 finding c/o Department of Laboratories Sensitivity/[place] ------- [place] [address] St <SEE [phone] NOTE> CBC Auto Diff 10/18/2011 [facility] White Blood 7.8 CUMM 4.8-10.8 c/o Department [place] [address] [phone] Red Cell Count 3.84 CUMM Low 4.2-5.4 [...] Basophils 0 0-0.2 Comp Metabolic Panel 10/18/2011 [facility] Sodium 141 mmol/L 135-145 c/o [place] [address] [phone] Potassium 4.2 mmol/L 3.5-5.0 Chloride 106 mmol/L [...] 43.5 > 60 6 Lipid Profile 10/18/2011 [facility] Triglyceride 99 mg /dL 40-200 (Trig/Chol/HDL) c/o [place] [address] [phone] Cholesterol 180 mg/dL Less Than 200 7 High Density Lipoprotein 77 mg/dL High 40-60 8 Cholesterol/HDL Ratio 2.34 AVERAGE 1-4.44 Low Density Lipoprotein 83 mg/dL Less Than 100 9 Laboratory test 10/18/2011 [facility] CPK (Creatine 72 U/L 0-170 finding c/o Department of Laboratories Kinase) [place] [address] [phone] CBC No Diff 10/05/2011 [facility] White Blood 9.2 CUMM 4.8-10.8 c/o Department [place] [address] [phone] Red Cell Count 3.90 CUMM Low 4.2-5.4 Hemoglobin 13.5 g/dL 12.0-16.0 Hematocrit 39 % 35-47 Mean Corpuscular Volume 100 um3 High 79-97 Mean Corpuscular Hemoglob 35 pg High 27-31 Mean Corpuscular HGB Cone 34 g/dL 32-36 Redcell Distribution WDTH 14 % 10.5-15 Platelet Count 168 CUMM 150-450 Mean Platelet Volume 11.6 um3 High 7.4-10.4 Basic Metabolic 10/05/2011 [facility] Sodium 139 mmol/ L 135-145 Panel c/o [place] [address] [phone] Potassium 4.1 mmol/L 3.5-5.0 Chloride 104 mmol/L 101-111 Co2 (Carbon Dioxide) 27.0 mmol/L 22-32 Anion Gap 8.0 mmol/L 2-11 10 Glucose 110 mg/dL High 70-100 BUN 23 mg/dL 6-24 Creatinine 1.4 mg/dL 0.50-1.40 One Over Creatinine 0.71 BUN/Creatinine Ratio 16.4 8-20 Calcium 9.7 mg/dL 8.1-9.9 eGFR Non- 36.7 > 60 eGFR 47.1 > 60 11 Basic Metabolic 04/26/2011 [facility] Sodium 137 mmol/ L 135-145 Panel c/o [place] [address] [phone] Potassium 5.5 mmol/L High 3.5-5.0 Chloride 104 mmol/L 101-111 Co2 (Carbon Dioxide) 26.0 mmol/L 22-32 Anion Gap 7.0 mmol/L 2-11 12 Glucose 96 mg/dL 70-100 BUN 38 mg/dL High 6-24 Creatinine 1.80 mg/dL High 0.50-1.40 One Over Creatinine 0.50 BUN/Creatinine Ratio 21.1 High 8-20 Calcium 9.5 mg/dL 8.1-9.9 eGFR Non- 27.5 > 60 eGFR 35.4 > 60 13 CBC Auto Diff 04/26/2011 [facility] White Blood 10.8 CUMM 4.8-10.8 c/o Department [place] [address] [phone] Red Cell Count 3.69 CUMM Low 4.2-5.4 Hemoglobin 12.3 g/dL 12.0-16.0 Hematocrit 37 % 35-47 Mean Corpuscular Volume 101 um3 High 79-97 Mean Corpuscular Hemoglob 33 pg High 27-31 Mean Corpuscular HGB Cone 33 g/dL 32-36 Redcell Distribution WDTH 14 % 10.5-15 Platelet Count 181 CUMM 150-450 Mean Platelet Volume 11.4 um3 High 7.4-10.4 14 Manual Differential 04/26/2011 [facility] Polysegmented 74 % 38-83 c/o Department of Laboratories Neutrophil [place], [place] [id number] [phone] Lymphocyte 18 % Low 25-47 Monocyte 5 % 0-13 Eosinophil 2 % 0-6 Basophil 1 % 0-2 Absolute Neutrophil Count 7.9 Macrocytosis SLIGHT Neutrophil Cytoplasmic 03/24/2011 [facility] C-Anca NEGATIVE AB c/o Department of Laboratories [place], [place] [id number] [phone] P-Anca Final RPT NEGATIVE Anca Reviewed By (SEE NOTE) Negative 15 Laboratory test 03/24/2011 [facility] Erythrocyte Sed 34 MM/HR 0-40 finding c/o Department of Laboratories Rate [place], [place] [id number] [phone] CBC With Manual 03/24/2011 [facility] White Blood 8.4 CUMM 4.8-10.8 Diff c/o Department [place] [address] [phone] Red Cell Count 3.76 CUMM Low 4.2-5.4 [...] Count 5.8 Anisocytosis SLIGHT Laboratory test 03/24/2011 [facility] C Reactive < 0.5 mg/dL Less Than finding c/o Department of Laboratories Protein 0.5 [place], [place] [id number] [phone] Comp Metabolic 03/24/2011 [facility] Sodium 142 mmol/ L 135-145 Panel c/o [place] [address] [phone] Potassium 5.2 mmol/L High 3.5-5.0 Chloride 109 [...] > 60 18 Comp Metabolic Panel 02/08/2011 [facility] Sodium 136 mmol/L 135-145 c/o [place] [address] [phone] Potassium 5.6 mmol/L High 3.5-5.0 Chloride 106 [...] 40.5 > 60 21 Laboratory test 02/08/2011 [facility] C Reactive 0.6 mg/dL High Less Than finding c/o Department of Laboratories Protein 0.5 [place] [address]999952 [phone] Urinalysis 02/08/2011 [facility] Ua Color YELLOW Yellow W/Microscopic c/o [place] [address] [phone] Appearance-Urine CLEAR Clear Specific [place]-Ur 1.016 1.010-1.030 Esterase-Urine 1+ Abnormal Negative Nitrite NEGATIVE Negative [id number] NEGATIVE Negative Protein-Urine NEGATIVE Negative PH-Urine 5.5 5-9 Blood-Urine NEGATIVE Negative Ketones-Urine NEGATIVE Negative Bilirubin-Ur NEGATIVE Negative Glucose-Urine NEGATIVE Negative WBC-Urine 0-2 0-5 RBC-Urine NONE SEEN 0-2 Mucus Urine SMALL None Epith Cells-Ur FEW None Bacteria-Urine TRACE None CBC No Diff 02/08/2011 [facility] White Blood 10.1 CUMM 4.8-10.8 c/o Department [place] [address] [phone] Red Cell Count 3.93 CUMM Low 4.2-5.4 Hemoglobin 12.8 g/dL 12.0-16.0 Hematocrit 39 % 35-47 Mean Corpuscular Volume 98 um3 High 79-97 Mean Corpuscular Hemoglob 33 pg High 27-31 Mean Corpuscular HGB Cone 33 g/dL 32-36 Redcell Distribution WDTH 14 % 10.5-15 Platelet Count 160 CUMM 150-450 Mean Platelet Volume 11.1 um3 High 7.4-10.4 Laboratory test 02/08/2011 [facility] Erythrocyte Sed 23 MM/HR 0-40 finding c/o Department [place] [address] [phone] Urine Culture & 02/08/2011 [facility] Urine Culture NG 22 Sensitivi c/o Department of Laboratories Sensitivi [place], [place] [id number] [phone] Neutrophil 02/08/2011 [facility] C-Anca NEGATIVE Cytoplasmic AB c/o [place] [address] [phone] P-Anca Final RPT NEGATIVE Anca Reviewed By (SEE NOTE) Negative 23 Vitamin D, 25 12/24/2010 [facility] 25-Hydroxy Vitamin <4.0 ng/mL () Hydroxy c/o Department of Laboratories D2 [place], [place] [id number] [phone] 25-Hydroxy Vitamin D3 50 ng/mL () 25-Hydroxy Vitamin D Total 50 ng/mL () 24 Laboratory test 12/24/2010 [facility] Ferritin 113 NG/ ML 11.0-307 finding c/o [place] [address] [phone] Lipid Profile 12/24/2010 [facility] Triglyceride 200 mg/dL 40-200 (Trig/Chol/HDL) c/o Department of Laboratories [place], [place] [address]67439 [phone] Cholesterol 210 mg/dL High Less Than 200 25 High Density Lipoprotein 61 mg/dL High 40-60 26 Cholesterol/HDL Ratio 3.44 AVERAGE 1-4.44 Low Density Lipoprotein 109 mg/dL High Less Than 100 27 Comp Metabolic Panel 12/24/2010 [facility] Sodium 138 mmol/L 135-145 c/o Department of Laboratories [place], [place] 1002244 [phone] Potassium 5.1 mmol/L High 3.5-5.0 Chloride 105 [...] 47.3 > 60 30 CBC With 12/24/2010 [facility] White Blood 6.1 CUMM 4.8-10.8 Electronic Diff c/o Department of Laboratories Count [place], [place] 8477185 [phone] Red Cell Count 4.02 CUMM Low 4.2-5.4 [...] Abs Basophils 0 0-0.2 CBC With 11/30/2010 [facility] White Blood 7.4 CUMM 4.8-10.8 Electronic Diff c/o Department of Laboratories Count [place], [place] [id number] [phone] Red Cell Count 3.89 CUMM Low 4.2-5.4 [...] Basophils 0 0-0.2 Comp Metabolic Panel 11/30/2010 [facility] Sodium 137 mmol/L 135-145 c/o Department [place] [address] [phone] Potassium 5.0 mmol/L 3.5-5.0 Chloride 104 mmol/L [...] 43.7 > 60 33 Laboratory test 11/30/2010 [facility] C Reactive 0.7 mg/dL High Less Than finding c/o Department of Laboratories Protein 0.5 [place] [address]999911 [phone] Neutrophil 11/30/2010 [facility] C-Anca POSITIVE Cytoplasmic AB c/o Department of Laboratories [place], [place] 8100534 [phone] C-Anca 1:40 1:40 Anca Reviewed By (SEE NOTE) Negative 34 Surgical 10/19/2010 [facility] Surgical -- 35 Pathology c/o Department of Laboratories Pathology <SEE NOTE> [place] [address] [phone] CBC With 10/12/2010 [facility] White Blood 6.9 CUMM 4.8- 36 Electronic c/o Department of Laboratories Count 10.8 [place] [address] [phone] Red Cell Count 3.94 CUMM Low 4.2-5.4 [...] Abs Basophils 0 0-0.2 Basic Metabolic 10/12/2010 [facility] Sodium 141 mmol/ L 135-145 Panel c/o [place] [address] [phone] Potassium 4.9 mmol/L 3.5-5.0 Chloride 110 mmol/L 101-111 Co2 (Carbon Dioxide) 25.0 mmol/L 22-32 Anion Gap 6.0 mmol/L 2-11 37 Glucose 104 mg/dL High 70-100 38 BUN 29 mg/dL High 6-24 Creatinine 1.50 mg/dL High 0.50-1.40 One Over Creatinine 0.60 BUN/Creatinine Ratio 19.3 8-20 Calcium 9.7 mg/dL 8.1-9.9 eGFR Non- 36.1 > 60 eGFR 43.7 > 60 39 Laboratory test 09/15/2010 [facility] Anti Dna NEGATIVE Negative finding c/o Department of Laboratories ([place] [address] Stranded Dna) [phone] Neutrophil 09/15/2010 [facility] C-Anca POSITIVE Cytoplasmic AB c/o Department of Laboratories [place], [place] 9462364 [phone] C-Anca 1:80 1:80 Anca Reviewed By (SEE NOTE) Negative 40 Ssa/SSB 09/15/2010 [facility] Ssa NEGATIVE Negative c/o Department of Laboratories [place], [place] 8884290 [phone] SSB NEGATIVE Negative Honey 09/15/2010 [facility] Antinuclear POSITIVE Abnormal Negative (Antinuclear c/o Department of Laboratories AB Antibodies) [place], [place] [id number] [phone] Honey Pattern HOMOGENEOUS Abnormal Antinuclear AB 1:80 Abnormal Reviewed By (SEE NOTE) 41 Laboratory test 09/15/2010 [facility] Hla B27 Negative () 42 finding c/o [place] [address] [phone] Total Protein 24HR 09/15/2010 [facility] Total Protein 13 mg/dL Urine c/o Department of Laboratories Random Urine [place], [place] 1531114 [phone] Urine Total Protein/24HR 130 MG/24HR High 50-100 Creatinine 09/15/2010 [facility] Creatinine Random 83.74 mg/dL Clearance c/o Department of Laboratories Urine [place], [place] 4923261 [phone] Creat Clearance 42 mL/min Low 80-125 Hours Of Collection 24 HR 24- Urine Volume Measurement 1000 ML Laboratory test 09/15/2010 [facility] Erythrocyte Sed 26 MM/HR 0-40 finding c/o Department [place] [address] [phone] CBC With 09/15/2010 [facility] White Blood 6.5 CUMM 4.8-10.8 Electronic Diff c/o Department [place] [address] [phone] Red Cell Count 3.76 CUMM Low 4.2-5.4 [...] Abs Basophils 0 0-0.2 Laboratory test 09/15/2010 [facility] C Reactive 0.5 mg/dL Less Than finding c/o Department of Laboratories Protein 0.5 [place] [address] [phone] CBC With 09/07/2010 [facility] White Blood 7.2 CUMM 4.8-10.8 Electronic Diff c/o Department [place] [address] [phone] Red Cell Count 3.96 CUMM Low 4.2-5.4 [...] Basophils 0 0-0.2 Comp Metabolic Panel 09/07/2010 [facility] Sodium 137 mmol/L 135-145 c/o [place] [address] [phone] Potassium 5.3 mmol/L High 3.5-5.0 Chloride 105 [...] 37.8 > 60 46 Lipid Profile 09/07/2010 [facility] Triglyceride 176 mg/dL 40-200 (Trig/Chol/HDL) c/o [place] [address] [phone] Cholesterol 209 mg/dL High Less Than 200 47 High Density Lipoprotein 66 mg/dL High 40-60 48 Cholesterol/HDL Ratio 3.17 AVERAGE 1-4.44 Low Density Lipoprotein 108 mg/dL High Less Than 100 49 Laboratory test 09/07/2010 [facility] TSH 1.53 MIU/ML 0.34-5.60 finding c/o [place] [address] [phone] Hemoglobin A1c 5.7 % Less Than 6.0 50 Laboratory test 08/31/[address] [facility] Erythrocyte Sed 36 MM/HR 0-40 [place] [address] Rate [phone] C Reactive Protein 0.9 mg/dL High Less Than 0.5 Urinalysis 08/31/[address] [facility] Ua Color YELLOW Yellow W/Microscopic [place], [place] 2331048 [phone] Appearance-Urine CLEAR Clear Specific [place]-Ur 1.017 1.010-1.030 Esterase-Urine 1+ Abnormal Negative Nitrite NEGATIVE Negative Vtfekzlulwfc-Os-CUH NEGATIVE Negative Protein-Urine NEGATIVE Negative PH-Urine 5.5 5-9 Blood-Urine NEGATIVE Negative Ketones-Urine NEGATIVE Negative Bilirubin-Ur NEGATIVE Negative Glucose-Urine NEGATIVE Negative WBC-Urine 1-3 0-5 RBC-Urine NONE SEEN 0-2 Epith Cells-Ur FEW None Urine Culture & 08/31/[address] [facility] Urine Culture NG [address] [place] [address] Sensitivi [phone] Neutrophil 08/12/2010 [facility] C-Anca POSITIVE Cytoplasmic AB c/o [place] [address] [phone] C-Anca 1:20 1:20 P-Anca Final RPT NEGATIVE Anca Reviewed By (SEE NOTE) Negative 52 Laboratory test 07/15/[address] [facility] Angiotensin 6 U/L Abnormal 8-53 53 [place] [address] Converting [phone] Enzyme 1 Because ethnic data is not [...] Range <145 3 RUN DATE: 12/12/11 [facility] NMI LIVE PAGE 1 RUN TIME: 923 Specimen Inquiry RUN USER: INTERFACE Name: SIRISHA DOTSON Accluis#: [id number] Status: REG REF Re12/08/11 Age/Sex: 76/F Unit#: [id number] Location: [facility] : 37 SPEC #: [id number] SAMANTHA: 12/08/11 STATUS: ASHLEIGH BEE #: [id number] RECD: 12/09/[address]: Ramin MISTRY,Jessa Wilson SOURCE: MISC ENTR: 12/09/[address] [facility] [address]: SUSIE: SINUS,LMAX ORDERED: CULT SENS/GS QUERIES: MEDENT REQUISITION # [id number] ACT WKST: B 12/12/11 #1 Procedure Result Verified Site > CULTURE SENSITIVITY Final 12/12/11- 0924 ML Organism 1 PSEUDOMONAS AERUGINOSA Organism 2 SADIA SPECIES QUANTITY FEW "NOT ALBICANS" 1. PSEUDOMONAS AERUGINOSA RX M.I.C. ------ --------- AMIKACIN S <=2 LEVOFLOXACIN S 0.5 CIPROFLOXACIN S <=0.25 GENTAMICIN S <=1 CEFTAZIDIME S 4 IMIPENEM S <=1 *These antibiotics are not available in the [facility] Formulary. Contact the Microbiology Department for any additional antibiotic reporting. > GRAM STAIN SMEAR Final 12/09/11- 1547 ML POLYS NONE SMEAR: MODERATE COLUMNAR EPITH FEW YEAST LIKE CELLS - [facility] State Permit #[id number] [address] [place] [address] DEPARTMENT OF PATHOLOGY, [address] [place] [address] [facility] Permit #[id number] Mian Luna M.D. Director David Pak M.D. [facility] Nurse 4 Anion gap measurement may be of limited value in the presence of any alkalosis, especially in a combined acid base disorder. . 5 A metabolite of Naproxen, O-desmethylnaproxen, has been shown to interfere with the Jenabelik-Tari method for measuring total bilirubin. Samples from [...] has been shown to interfere with the Jendrassik-Wayland method for measuring total bilirubin. Samples from [...] has been shown to interfere with the Jendrassik-Wayland method for measuring total bilirubin. Samples from [...] 2 (<1,000 CFU/mL) 23 REVIEWED BY DAVID PKA MD 24 -- REFERENCE VALUE -- 25-HYDROXY D TOTAL (D2+D3) Optimum levels in the normal population are 25-80 Test Performed by: [facility] Med and Pathology [address] [place] [address] Well Reactivator Operator: Tang Ochoa III, M.D. 25 CHOLESTEROL INTERPRETATION: [...] MD 35 ---- RUN DATE: 10/20/10 [facility] NMI LIVE PAGE 1 RUN TIME: 1732 Specimen Inquiry RUN USER: INTERFACE -- Name: SIRISHA DOTSON [facility]#: [id number] Status: [facility] Re10/19/10 Age/Sex: 75/F Unit#: [id number] Location: [facility] : 36 -- Specimen: [id number] [facility] Spec Date: 10/19/[address] [facility] [address]: Saud Cornell MD Spec Type: SURGICAL P Received: 10/19/10-4063 Copies to: SPECIMEN BIOPSY NASAL SEPTUM HISTORY PRE-OP DIAGNOSIS: Left sided epistaxis. GROSS DESCRIPTION The specimen is received in formalin labelled Sirisha Dotosn, Biopsy Nasal Septum, and consists of two [...] 10/20/10 1732 -- -- DEPARTMENT OF PATHOLOGY, [address] [place] [address] [facility] Permit #[id number] Mian Luna M.D. Director David Pak M.D. Mercury Washer Dir tejinder -- 36 SURGERY DATE IS 10-19-10 37 Anion gap measurement may be of limited value in the presence of any alkalosis, especially in a combined acid base disorder. . 38 Note change in reference range as of 07/17/08. The change was based on recommendations from the [employer] [place]. 39 Because ethnic data is [...] Method: Flow Cytometry Test Performed by: [facility] [address] [place] [id number] Well Reactivator Operator: Tang Ochoa III, M.D. 43 Anion gap measurement may be of limited value in the presence of any alkalosis, especially in a combined acid base disorder. . 44 Note change in reference range as of 07/17/08. The change was based on recommendations from the [place]. 45 A metabolite of Naproxen, O-desmethylnaproxen, has been shown to interfere with the Jendrassik-Wayland method for measuring total bilirubin. Samples from [...] IN SELECTIVE PATIENTS <6.0%. PLEASE REFER TO [employer] DIABETIC CARE GUIDELINES FOR FURTHER INFORMATION. 51 FINAL: NO GROWTH DAY 2 (<1,000 CFU/mL) 52 REVIEWED BY MIAN LUNA MD 53 The use of angiotensin converting enzyme (HU)-inhibiting antihypertensive drugs will cause decreased HU values. Test Performed by: [facility] [address] [place] [id number] Well Reactivator Operator: Tang Ochoa III, M.D. Procedures Date Code Description Status 02/11/2019 08088 Control Nasal Hemorrhage (Extensive Cautery/Packing) Any Completed Method 01/03/2019 37304 Nasal Endoscopy, Diagnostic Completed 12/13/2018 51087 Nasal Endoscopy, Diagnostic Completed 06/29/2018 87499 Tympanometry Completed 06/29/2018 32797 Comprehensive Audiogram Completed 05/25/2018 02252 Control Nasal Hemorrhage (Extensive Cautery/Packing) Any Completed Method 05/09/2018 38011 Endoscopic Nasal Cautery Completed 08/17/2017 63342 Fiberoptic Laryngoscopy Completed 11/30/2016 39610 Nasal Endoscopy, Diagnostic Completed 06/24/2016 21509 Nasal Endoscopy, Diagnostic Completed 05/12/2016 79962 Comprehensive Audiogram Completed 05/12/2016 26312 Tympanometry Completed 04/26/2016 72430 Endoscopic Nasal Cautery Completed 04/07/2016 37341 Nasal Endoscopy, Diagnostic Completed 11/02/2015 79450 Contol Nasal Hemorrhage, Anterior, Simple Completed 09/03/2015 81612 Fiberoptic Laryngoscopy Completed 06/03/2015 90841 Nasal Endoscopy, Diagnostic Completed 10/17/2013 66090 Nasal Endoscopy, Diagnostic Completed 04/05/2012 23458 Nasal Endoscopy, Diagnostic Completed 10/11/2011 12802 Insertion, Nasal Septal Button Completed 10/11/2011 23160 Control Nasal Hemorrhage (Extensive Cautery/Packing) Any Completed Method 09/15/2011 24418 Nasal Endoscopy, Diagnostic Completed 10/19/2010 46588 Endoscopic Nasal Cautery Completed 10/06/2010 75381 Nasal Endoscopy, Diagnostic Completed 08/12/2010 97422 Tympanometry Completed 08/12/2010 38675 Comprehensive Audiogram Completed 07/22/2010 03822 Tympanometry Completed 07/22/2010 48999 Comprehensive Audiogram Completed 07/22/2010 37805 Removal Of Myringotomy Tube Completed 06/23/2010 24064 Tympanometry Completed 06/08/2010 88034 Endoscopic Nasal Cautery Completed 06/02/2010 20349 Nasal Endoscopy, Diagnostic Completed 05/28/2010 41186 Endoscopic Nasal Cautery Completed 02/18/2010 45376 Nasal Endoscopy, Diagnostic Completed 01/13/2010 27392 Nasal Endoscopy, Diagnostic Completed 01/05/2010 58638 Endoscopic Nasal Cautery Completed 12/21/2009 58307 Control Nasal Hemorrhage (Extensive Cautery/Packing) Any Completed Method 12/17/2009 09844 Nasal Endoscopy, Diagnostic Completed Encounters Type Date Location Provider Dx Diagnosis Office Visit 04/02/2019 [place],After 11/27/07 Saud Cornell R04.0 Epistaxis 10:15a MD Office Visit 02/26/2019 [place],After 11/27/07 Saud Cornell R04.0 Epistaxis 2:30p 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 Office Visit 02/12/2019 1:45p [place],After 11/27/07 Jeb Sorensen4.0 Epistaxis 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 Office Visit 02/11/2019 4:00p [place],After 11/27/07 Nabil Simmons MD R04.0 Epistaxis 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 Office Visit 11/02/2018 10:30a [place],After Saud Baez R09.81 Nasal congestion 11/27/07 MD Kraig Office Visit 06/29/2018 8:45a [place] Saud Baez R04.0 Epistaxis 11/27/07 MD Kraig H91.91 Unspecified hearing loss, right ear Office Visit 05/29/2018 8:30a [place],After 11/27/07 Saud Cornell R04.0 Epistaxis Office Visit 05/08/2018 10:30a [place],After 11/27/07 Jeb Sorensen4.0 Epistaxis Office Visit 05/04/2018 11:45a [place],After 11/27/07 Nabil Simmons MD R04.0 Epistaxis Office Visit 08/17/2017 1:30p [place],After 11/27/07 Jeb Sorensen4.0 Epistaxis R13.10 Dysphagia, unspecified Office Visit 02/09/2017 10:45a [place],After 11/27/07 Saud Cornell, R04.0 Epistaxis Office Visit 05/12/2016 11:30a [place],After 11/27/07 Saud Cornell, R04.0 Epistaxis H90.3 Sensorineural hearing loss, bilateral H92.01 Otalgia, right ear Office Visit 04/29/2016 [place],After Nabil Simmons R04.0 Epistaxis 11:45a 11/27/07 Office Visit 04/14/2016 [place],After Saud Baez R04.0 Epistaxis 10:15a 11/27/07 MD Kraig Office Visit 11/02/2015 [place],After Nabil Simmons R04.0 Epistaxis 10:45a 11/27/07 Office Visit 10/29/2015 [place],After Saud Baez 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 Office Visit 08/27/2014 [place],After Saud Baez 478.1-2 Perforation Of 2:15p 11/27/07 MD Kraig Nasal Septum Office Visit 12/05/2013 [place],After Saud Baez 478.1-2 Perforation Of 2:45p 11/27/07 MD Kraig Nasal Septum 784.7 Epistaxis Office Visit 10/17/2013 1:45p [place],After Saud Baez 478.19 Mucocele Of 11/27/07 MD Kraig Sinus/Perf Nasal Septum 478.1-2 Perforation Of Nasal Septum 784.7 Epistaxis 931 Foreign Body, Ear, External Or Auditory Canal Office Visit 02/15/2012 [place],After Saud Baez 478.1-2 Perforation Of 1:45p 11/27/07 MD Kraig Nasal Septum Office Visit 12/08/2011 [place],After Ramin 461.0 Sinusitis, Acute 4:00p 11/27/07 Jessa MASTER OCEAN Maxillary 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, Chronic Ethmoidal Office Visit 09/15/2011 2:15p [place],After 11/27/07 Saud Cornell 784.7 Epistaxis 478.1-2 Perforation Of Nasal Septum Office Visit 03/24/2011 2:00p [place],After 11/27/07 Saud Cornell, 784.7 Epistaxis 478.1-2 Perforation Of Nasal Septum 381.81 Dysfunction Of Eustachian Tube Office Visit 11/10/2010 3:45p [place],After 11/27/07 Saud Cornell, 784.7 Epistaxis 478.1-2 Perforation Of Nasal Septum 401.9 High Blood Pressure Or Hypertension/Unspecified Office Visit 10/06/2010 2:15p [place],After 11/27/07 Saud Cornell, 784.7 Epistaxis 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 401.9 High Blood Pressure Or Hypertension/Unspecified Office 08/12/2010 [place],After Saud Baez 401.9 High Blood Pressure Or Visit 1:45p 11/27/07 MD Kraig Hypertension/Unspecified 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, 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, Sensorineural/Unspecified 478.1-2 Perforation Of Nasal Septum Office 07/22/2010 [place],After Saud Baez 401.9 High Blood Pressure Or Visit 11:30a 11/27/07 MD Kraig Hypertension/Unspecified 381.81 Dysfunction Of Eustachian Tube 478.1-2 Perforation Of Nasal Septum 931 Foreign Body, Ear, External Or Auditory Canal 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, 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, Sensorineural/Unspecified Office Visit 07/15/2010 2:15p [place],After 11/27/07 Saud Baez 381.19 Otitis Media MD [place] Chronic Serous Other 381.81 Dysfunction Of Eustachian Tube 478.1-2 Perforation Of Nasal Septum 401.9 High Blood Pressure Or Hypertension/Unspecified Office Visit 06/28/2010 2:00p [place],After 11/27/07 Ramin 381.19 Otitis Media Jessa [employer]CE[employer] Chronic Serous Other 381.81 Dysfunction Of Eustachian Tube 401.9 High Blood Pressure Or Hypertension/Unspecified Office 06/23/2010 [place],After Saud Baez 401.9 High Blood Pressure Or Visit 3:45p 11/27/07 MD Kraig Hypertension/Unspecified 784.7 Epistaxis 478.1-2 Perforation Of Nasal Septum 381.19 Otitis Media Chronic Serous Other Office Visit 05/28/2010 10:30a [place],After 11/27/07 Jessa Faustin 784.7 Epistaxis MASTER OCEAN 401.9 High Blood Pressure Or Hypertension/Unspecified Office Visit 01/08/2010 2:30p [place],After 11/27/07 Jessa Faustin 784.7 Epistaxis MASTER [employer]CEAN 478.1-2 Perforation Of Nasal Septum 784.0 Headache Or Facial Pain 401.9 High Blood Pressure Or Hypertension/Unspecified Office Visit 12/25/2009 11:45a [place],After 11/27/07 Saud Cornell, 784.7 Epistaxis 401.9 High Blood Pressure Or Hypertension/Unspecified Office Visit 11/05/2008 2:15p [place],After 11/27/07 Saud Cornell 784.7 Epistaxis 478.1-2 Perforation Of Nasal Septum 401.9 High Blood Pressure Or Hypertension/Unspecified Plan of Treatment Future Appointment(s):05/02/2019 1:30 pm - Saud Cornell MD at [place], After 11/27/07
[2019-04-08] MEDS ORDERED: Oxymetazoline 0.05% NASAL SPR* 15 ML BTL BOTH NARES ONE (18:00)
--- NOTE | 2019-04-08 18:16 | ED ---
Throat Pain/Nasal Congestion - HPI Summary HPI Summary: 83-year-old female presents with nosebleed today. She states that it started in her left nostril and has been having bleeding down her throat and into right nostril. Hshe has a history of nosebleeds. It is still bleeding but has been slowing but then it returned. She was on Plavix but stop a couple days ago. She has a history of perforated septum. She states that she has little bit dizzy. She has been spitting out clots. - History of Current Complaint Chief Complaint: EDEpistaxis Time Seen by Provider: 04/08/19 17:54 - Allergies/Home Medications Allergies/Adverse Reactions: Allergies Allergy/AdvReac Type Severity Reaction Status Date / Time nut - unspecified Allergy Severe Hives/Diff. Verified 03/06/19 09:20 Breathing/I tching monosodium glutamate AdvReac Mild headache, Verified 03/04/19 22:02 jitters cephalexin AdvReac GI Upset Verified 03/04/19 22:02 ibuprofen AdvReac Nausea Verified 03/04/19 22:02 CHESTNUTS Allergy Severe LIPS SWELL Uncoded 03/04/19 22:02 AND ARE VERY PAINFUL METALS Allergy Unknown Rash Uncoded 03/04/19 22:02 SEASONAL Allergy STUFFY Uncoded 03/04/19 22:02 HAYFEVER/ENVIRONMENTAL NOSE, WATERY EYES Home Medications: Home Medications Carvedilol TAB* [Coreg TAB*] 25 mg PO BID 04/08/19 [History Confirmed 04/08/19] Escitalopram Oxalate [Lexapro 10 mg] 10 mg PO DAILY 04/08/19 [History Confirmed 04/08/19] Furosemide TAB* [Lasix TAB*] 20 mg PO DAILY 04/08/19 [History Confirmed 04/08/19 ] Gabapentin 300 mg PO BEDTIME 04/08/19 [History Confirmed 04/08/19] Pantoprazole TAB * [Protonix TAB*] 40 mg PO DAILY 04/08/19 [History Confirmed ] clonazePAM TAB(*) [KlonoPIN TAB(*)] 1 mg PO DAILY 04/08/19 [History Confirmed ] predniSONE TAB* [Deltasone TAB*] 2.5 mg PO DAILY 04/08/19 [History Confirmed ] predniSONE TAB* [Deltasone TAB*] 5 mg PO DAILY 04/08/19 [History Confirmed 04/08] PMH/Surg Hx/FS Hx/Imm Hx Endocrine/Hematology History: Reports: Hx Anticoagulant Therapy, Hx Anemia - RECIEVED IRON INFUSIONS IN PAST Denies: Hx Diabetes, Hx Thyroid Disease Cardiovascular History: Reports: Hx Angina - RARELY USES NITRO, Hx Cardiomegaly , Hx Congestive Heart Failure, Hx Coronary Artery Disease - ON MED, Hx Hypercholesterolemia, Hx Hypotension - current, Hx Hypertension, Hx Myocardial Infarction - 2015, Hx Peripheral Vascular Disease, 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 godwin left carotid artery 2013 right carot Denies: Hx Deep Vein Thrombosis, Hx Pacemaker/ICD Respiratory History: Reports: Hx Asthma - POSSIBLY IN THE PAST, Hx Pneumonia Denies: Hx Chronic Obstructive Pulmonary Disease (COPD), Hx Lung Cancer GI History: Reports: Other GI Disorders - CHRONIC CONSTIPATION-TAKES LAXATIVE DAILY peg tube 03/12/18 Denies: Hx Gall Bladder Disease, Hx Gastroesophageal Reflux Disease, Hx Gastrointestinal Bleed, Hx Ulcer, Hx Urosepsis History: Reports: Hx Chronic Renal Failure Denies: Hx Kidney Stones, Hx Renal Disease, Other Problems/Disorders Musculoskeletal History: Reports: Hx Arthritis - HANDS & FEET Denies: Hx Rheumatoid Arthritis, Hx Osteoporosis Sensory History: Reports: Hx Cataracts - BILAT, Hx Contacts or Glasses - unknown Denies: Hx Hearing Aid Opthamlomology History: Reports: Hx Cataracts - BILAT, Hx Contacts or Glasses - unknown Neurological History: Reports: Hx Dementia, Hx Headaches - TAKES TRAMADOL PRN, Hx Migraine - last episode 1 yr ago 2016, Hx Nerve Disease - see below, Other Neuro Impairments/Disorders - 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 type. Hx Chemotherapy: No Hx Radiation Therapy: No - Surgical History Surgery Procedure, Year, and Place: Hysterectomy, 1983, [facility] [place]. Choleycystectomy, 1993, [facility] [place]. nose surgery .DR CHIN. FERNANDO.Femoral bypass, 1996, [facility] [place]. Left carotid endardectomy 2013. Right first toe, first joint replacement, 2005, [facility] [place]. LIGATION OF ETHMOIDAL INTERNAL MAXILIARY ARTERIES 2007. MYLEOGRAM. LASER SURGERY FOR EPISTAXIS X 6 OVER PAST 10 YEARS. RIGHT CAROTID ENDARECTOMY 03/01/18 [facility]. PEG TUBE INSERTION 03/12/18 [facility]. NASAL EPISTAXIS [facility] [place] DR. CHIN Hx Anesthesia Reactions: No - Immunization History Date of Tetanus Vaccine: up to date Date of Influenza Vaccine: up to date Infectious Disease History: No Infectious Disease History: Denies: Hx Clostridium Difficile, Hx Hepatitis, Hx Human Immunodeficiency Virus (HIV), Hx of Known/Suspected MRSA, Hx Shingles, Hx Tuberculosis, Hx Known/ Suspected VRE, Hx Known/Suspected VRSA, History Other Infectious Disease, Traveled Outside the [place] in Last 30 Days - Family History Known Family History: Positive: Hypertension Negative: Cardiac Disease - Social History Alcohol Use: None Alcohol Amount: a glass of wine a few times a week Hx Substance Use: No Substance Use Type: Reports: None Hx Tobacco Use: Yes Smoking Status (MU): Former Smoker Type: Cigarettes Amount Used/How Often: 1 PPD Length of Time of Smoking/Using Tobacco: 47 YEARS Have You Smoked in the Last Year: No Review of Systems Negative: Fever Positive: Epistaxis Negative: Chest Pain Negative: Shortness Of Breath All Other Systems Reviewed And Are Negative: Yes Physical Exam Triage Information Reviewed: Yes Vital Signs On Initial Exam: Initial Vitals Temp Pulse Resp BP Pulse Ox 96.5 F 73 18 96/69 97 04/08/19 17:01 04/08/19 17:01 04/08/19 17:01 04/08/19 17:01 04/08/19 17:01 Vital Signs Reviewed: Yes Appearance: Positive: Well-Appearing Skin: Positive: Warm, Dry Head/Face: Positive: Normal Head/Face Inspection Eyes: Positive: Normal, EOMI, ANDIE, Conjunctiva Clear ENT: Positive: Pharynx normal, Other - clots seen in throat, actively bleeding from left nares with no source seen, old blood in right nares Respiratory/Lung Sounds: Positive: Clear to Auscultation, Breath Sounds Present Cardiovascular: Positive: Normal, RRR Musculoskeletal: Positive: Normal Neurological: Positive: Normal Psychiatric: Positive: Normal Diagnostics - Vital Signs Vital Signs Temp Pulse Resp BP Pulse Ox 04/08/19 18:09 133/66 04/08/19 17:01 96.5 F 73 18 96/69 97 - Laboratory Result Diagrams: 04/08/19 20:59 04/08/19 18:19 Lab Statement: Any lab studies that have been ordered have been reviewed, and results considered in the medical decision making process. Re-Evaluation - Re-Evaluation First Eval Comment: still bleeding Second Eval Comment: applied rhinorocket but continues to bleed Third Eval Re-Evaluation Time: 20:07 Comment: still bleeding Fourth Eval Comment: still bleeding Fifth Eval Comment: bleeding stopped Sixth + Eval Re-Evaluation Time: 22:19 Comment: no bleeding still EENT Course/Dx - Course Course Of Treatment: 83-year-old female presents with nosebleed today. She states that it started in her left nostril and has been having bleeding down her throat and into right nostril. Hshe has a history of nosebleeds. It is still bleeding but has been slowing but then it returned. She was on Plavix but stop a couple days ago. She has a history of perforated septum. She states that she has little bit dizzy. She has been spitting out clots. On exam bleeding noted from left nares. Applied pressure and afrin and area continues to bleed. applied lidocaine and 4.5 rhinorocket and bleeding persisted. discussed with dr lr and removed rhinorocket and placed txa in the nose and reapplied rhinorocket. tried 5.5 but patient was unable to tolerated it so placed 4.5 rhinorocket. bleeding has stopped with occasional drip of blood from right nares. as no active bleeding at this time when observed for 30 mins will discharge to follow up with ENT. repeat h/h stable. placed on augmentin which has been on before. patient understand and agrees with plan. - Differential Diagnoses Differential Diagnoses: Epistaxis, Sinusitis, URI/Bronchitis - Diagnoses Provider Diagnoses: Epistaxis Discharge - Sign-Out/Discharge Documenting (check all that apply): Patient Departure Patient Received Moderate/Deep Sedation with Procedure: No - Discharge Plan Condition: Good Disposition: HOME Prescriptions: Amoxicillin/Clavulanate TAB* [Augmentin TAB 875*] 875 mg PO BID #9 tab traMADol TAB* [Ultram*] 50 mg PO Q8H PRN #6 tab MDD 3 PRN Reason: Pain Patient Education Materials: Nosebleed (ED) Referrals: Nabil Simmons MD [Medical Doctor] - Grecia Anderson MD [Primary Care Provider] - Additional Instructions: follow up with ENT within 2 days Take augmentin twice a day for 5 days is some bleeding persists apply afrin and hold compression Return to ED if develop any new or worsening symptoms - Billing Disposition and Condition Condition: GOOD Disposition: Home
[2019-04-08 18:26] LABS: ABS Basophils 0.1 10^3/ul (0-0.2); ABS Lymphocytes 0.7 10^3/ul (1.0-4.8); ABS Monocytes 0.6 10^3/ul (0-0.8); ABS Neutrophils 10.6 10^3/ul (1.5-7.7); Eosinophil % 0.2 %; Hematocrit 32 % (35-47); Hemoglobin 10.3 g/dL (12.0-16.0); Lymphocyte % 5.5 %; Mean Corpuscular HGB Conc 32 g/dL (31-36); Mean Corpuscular Hemoglobin 28 pg (27-31); Mean Corpuscular Volume 88 fL (80-97); Mean Platelet Volume 10.9 fL (7.4-10.4); Platelet Count 165 10^3/uL (150-450); Red Blood Count 3.67 10^6 /uL (3.70-4.87); Red Cell Distribution Width 17 % (10.5-15); White Blood Count 11.9 10^3/uL (3.5-10.8)
[2019-04-08 18:31] LABS: INR 1.03 (0.82-1.09)
[2019-04-08 18:54] LABS: BUN/Creatinine Ratio 22.8 (8-20); EGFR African American 36.8 (>60); EGFR Non-African American 30.4 (>60); Potassium 4.3 mmol/L (3.5-5.0)
[2019-04-08] MEDS ORDERED: Lidocaine 2% JELLY* 6 ML JELLY TOPICAL ONE ×2 (19:05→19:10)
[2019-04-08] MEDS ORDERED: traMADol TAB* 50 MG PO ONE (19:38)
[2019-04-08] MEDS ORDERED: Tranexamic Acid 1,000 MG/10 ML SDV TOPICAL ONE (19:54)
[2019-04-08] MEDS ORDERED: Amoxicillin/Clavulanate TAB* 875 MG PO ONE (20:54)
[2019-04-08 21:05] LABS: Hematocrit 32 % (35-47); Hemoglobin 10.4 g/dL (12.0-16.0); Mean Corpuscular HGB Conc 32 g/dL (31-36); Mean Corpuscular Hemoglobin 28 pg (27-31); Mean Corpuscular Volume 87 fL (80-97); Mean Platelet Volume 11.4 fL (7.4-10.4); Platelet Count 176 10^3/uL (150-450); Red Blood Count 3.71 10^6 /uL (3.70-4.87); Red Cell Distribution Width 18 % (10.5-15); White Blood Count 12.2 10^3/uL (3.5-10.8)
[2019-04-08 22:49] VITALS: BP 138/72
== END 2019-04-08 22:40 | disposition home or self-care (01) ==
LOC: ED 16:58
DX: R04.0 Epistaxis (principal); D64.9 Anemia, unspecified; I25.10 Atherosclerotic heart disease of native coronary artery without angina pectoris; I50.9 Heart failure, unspecified; E78.00 Pure hypercholesterolemia, unspecified; I95.9 Hypotension, unspecified; N18.9 Chronic kidney disease, unspecified; I12.9 Hypertensive chronic kidney disease with stage 1 through stage 4 chronic kidney disease, or unspecified chronic kidney disease; Z79.01 Long term (current) use of anticoagulants
CPT/HCPCS: 30901; 36415; 80048; 85025; 85027; 85610; 99284; A9270-GY

== ENCOUNTER 2019-04-30 12:28 | Inpatient (IN) | payer MEDICARE, OTHER ==
[2019-04-30] MEDS ORDERED: NS 0.9% 1000 ML** 1,000 ML IV ONE (12:53)
[2019-04-30] MEDS ORDERED: NS 0.9% 1000 ML** 500 ML IV ONE (12:55)
--- NOTE | 2019-04-30 13:07 | ED ---
Complex/Multi-Sys Presentation - HPI Summary HPI Summary: This pt is an 83 y/o female presenting to [facility] via EMS from home for generalized weakness and forgetfulness for the past 2 weeks. Pt states she has also been coughing. Denies chest pain, SOB, abd pain, fever, chills. Pt lives at home with her . Pt wears 3L of oxygen at home at baseline. She notes she has chronic pain in her neck and shoulders and has been dx with fibromyalgia. - History Of Current Complaint Chief Complaint: EDWeakness Time Seen by Provider: 04/30/19 12:52 Hx Obtained From: Patient Onset/Duration: Lasting Weeks, Still Present Timing: Weeks Severity Currently: Moderate Location: Negative Aggravating Factor(s): nothing Alleviating Factor(s): nothing Associated Signs And Symptoms: Positive: Weakness - generalized, Cough, Other - POS: forgetful. Negative: SOB, Abdominal Pain, Fever - Allergies/Home Medications Allergies/Adverse Reactions: Allergies Allergy/AdvReac Type Severity Reaction Status Date / Time nut - unspecified Allergy Severe Hives/Diff. Verified 04/30/19 12:50 Breathing/I tching monosodium glutamate AdvReac Mild headache, Verified 04/30/19 12:50 jitters cephalexin AdvReac GI Upset Verified 04/30/19 12:50 ibuprofen AdvReac Nausea Verified 04/30/19 12:50 CHESTNUTS Allergy Severe LIPS SWELL Uncoded 03/04/19 22:02 AND ARE VERY PAINFUL METALS Allergy Unknown Rash Uncoded 03/04/19 22:02 SEASONAL Allergy STUFFY Uncoded 03/04/19 22:02 HAYFEVER/ENVIRONMENTAL NOSE, WATERY EYES Home Medications: Home Medications Acetaminophen TAB* [Tylenol TAB*] 650 mg PO BID PRN 04/30/19 [History Confirmed 04/30/19] Aspirin EC TAB* [Ecotrin EC Low Dose 81 MG*] 81 mg PO DAILY 04/30/19 [History Confirmed 04/30/19] Quan/D3/Mag11/Zinc/Computer Systems Information Director/Shiva/Bor [Caltrate 600+D Plus] 1 tab PO BID 04/30/19 [ History Confirmed 04/30/19] Carvedilol TAB* [Coreg TAB*] 6.25 mg PO BID 04/30/19 [History Confirmed 04/30/19 ] Cyanocobalamin TAB* [Vitamin B12 TAB*] 1,000 mcg PO DAILY 04/30/19 [History Confirmed 04/30/19] Docusate CAP* [Colace Cap*] 100 mg PO BID 04/30/19 [History Confirmed 04/30/19] Escitalopram * [Lexapro 10 mg (NF)] 10 mg PO DAILY 04/30/19 [History Confirmed 04/30/19] Ferrous Sulfate TAB* 325 mg PO DAILY 04/30/19 [History Confirmed 04/30/19] Gabapentin CAP(*) [Neurontin 300 CAP(*)] 300 mg PO BEDTIME 04/30/19 [History Confirmed 04/30/19] L. Acidophilus/Pectin, [place] [Acidophilus Capsule] 1 cap PO DAILY 04/30/19 [ History Confirmed 04/30/19] Potassium Chloride [Klor-Con M20] 20 meq PO BID 04/30/19 [History Confirmed 03/15] clonazePAM TAB(*) [KlonoPIN TAB(*)] 1 mg PO BEDTIME PRN 04/30/19 [History Confirmed 04/30/19] traMADol TAB* [Ultram*] 50 mg PO BID MDD 3 04/30/19 [History Confirmed 04/30/19] PMH/Surg Hx/FS Hx/Imm Hx Endocrine/Hematology History: Reports: Hx Anticoagulant Therapy, Hx Anemia - RECIEVED IRON INFUSIONS IN PAST Denies: Hx Diabetes, Hx Thyroid Disease Cardiovascular History: Reports: Hx Angina - RARELY USES NITRO, Hx Cardiomegaly , Hx Congestive Heart Failure, Hx Coronary Artery Disease - ON MED, Hx Hypercholesterolemia, Hx Hypotension - current, Hx Hypertension, Hx Myocardial Infarction - 2014, Hx Peripheral Vascular Disease, 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 left carotid artery 2013 right carot Denies: Hx Deep Vein Thrombosis, Hx Pacemaker/ICD Respiratory History: Reports: Hx Asthma - POSSIBLY IN THE PAST, Hx Pneumonia Denies: Hx Chronic Obstructive Pulmonary Disease (COPD), Hx Lung Cancer GI History: Reports: Other GI Disorders - CHRONIC CONSTIPATION-TAKES LAXATIVE DAILY peg tube 03/12/18 Denies: Hx Gall Bladder Disease, Hx Gastroesophageal Reflux Disease, Hx Gastrointestinal Bleed, Hx Ulcer, Hx Urosepsis History: Reports: Hx Chronic Renal Failure Denies: Hx Kidney Stones, Hx Renal Disease, Other Problems/Disorders Musculoskeletal History: Reports: Hx Arthritis - HANDS & FEET, Hx Fibromyalgia Denies: Hx Rheumatoid Arthritis, Hx Osteoporosis Sensory History: Reports: Hx Cataracts - BILAT, Hx Contacts or Glasses - unknown Denies: Hx Hearing Aid Opthamlomology History: Reports: Hx Cataracts - BILAT, Hx Contacts or Glasses - unknown Neurological History: Reports: Hx Dementia, Hx Headaches - TAKES TRAMADOL PRN, Hx Migraine - last episode 1 yr ago 2017, Hx Nerve Disease - see below, Other Neuro Impairments/Disorders - 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 type. Hx Chemotherapy: No Hx Radiation Therapy: No - Surgical History Surgery Procedure, Year, and Place: Hysterectomy, 1983, [facility] [place]. Choleycystectomy, 1993, [facility] [place]. nose surgery .DR CHIN. [facility].Femoral bypass, 1996, [facility] [place]. Left carotid endardectomy 2013. Right first toe, first joint replacement, 2005, [facility] [place]. LIGATION OF ETHMOIDAL INTERNAL MAXILIARY ARTERIES 2007. MYLEOGRAM. LASER SURGERY FOR EPISTAXIS X 6 OVER PAST 10 YEARS. RIGHT CAROTID ENDARECTOMY 03/01/18 [facility]. PEG TUBE INSERTION 03/12/18 [facility]. NASAL EPISTAXIS [facility] [place] DR. CHIN Hx Anesthesia Reactions: No - Immunization History Date of Tetanus Vaccine: up to date Date of Influenza Vaccine: up to date Infectious Disease History: No Infectious Disease History: Denies: Hx Clostridium Difficile, Hx Hepatitis, Hx Human Immunodeficiency Virus (HIV), Hx of Known/Suspected MRSA, Hx Shingles, Hx Tuberculosis, Hx Known/ Suspected VRE, Hx Known/Suspected VRSA, History Other Infectious Disease, Traveled Outside the [place] in Last 30 Days - Family History Known Family History: Positive: Hypertension Negative: Cardiac Disease - Social History Alcohol Use: None Alcohol Amount: a glass of wine a few times a week Hx Substance Use: No Substance Use Type: Reports: None Hx Tobacco Use: Yes Smoking Status (MU): Former Smoker Type: Cigarettes Amount Used/How Often: 1 PPD Length of Time of Smoking/Using Tobacco: 47 YEARS Have You Smoked in the Last Year: No Review of Systems Negative: Fever Negative: Chest Pain Positive: Cough. Negative: Shortness Of Breath Negative: Abdominal Pain Neurological: Other - POS: forgetful Positive: Weakness - generalized All Other Systems Reviewed And Are Negative: Yes Physical Exam - Summary Physical Exam Summary: GENERAL: Patient is a well-developed and nourished female who is lying comfortable in the stretcher. Patient is not in any acute respiratory distress. HEAD AND FACE: Normocephalic EYES: PERRLA, EOMI x 2. EARS: Hearing grossly intact. MOUTH: Oropharynx within normal limits. NECK: Supple, trachea is midline, no adenopathy, no JVD, no carotid bruit. CHEST: Symmetric, no tenderness at palpation LUNGS: Crackles in the right lung. CVS: Regular rate and rhythm, S1 and S2 present, no murmurs or gallops appreciated. ABDOMEN: Soft, non-tender. Bowel sounds are normal. No abnormal abdominal pulsations. RECTAL EXAM: stool is brown. Sample was sent to the lab. EXTREMITIES: Full ROM in all major joints, no edema, no cyanosis or clubbing. NEURO: Alert and oriented x 3. No acute neurological deficits. Speech is normal and follows commands. Cranial nerves II-XII are intact. SKIN: Dry and warm GCS: 15 Triage Information Reviewed: Yes Vital Signs On Initial Exam: Initial Vitals Temp Pulse Resp BP Pulse Ox 97.7 F 74 19 154/65 92 04/30/19 12:42 04/30/19 12:42 04/30/19 12:42 04/30/19 12:42 04/30/19 12:42 Vital Signs Reviewed: Yes Diagnostics - Vital Signs Vital Signs Temp Pulse Resp BP Pulse Ox 04/30/19 12:42 97.7 F 74 19 154/65 92 - Laboratory Result Diagrams: 04/30/19 13:41 04/30/19 13:41 Lab Statement: Any lab studies that have been ordered have been reviewed, and results considered in the medical decision making process. - Radiology Chest XR Radiology Interpretation Completed By: Radiologist Summary of Radiographic Findings: IMPRESSION: Mild pulmonary vascular congestion and interstitial edema superimposed on chronic obstructive pulmonary disease. The CHF is less severe than on the March 11, [address] Carolina has reviewed this report. - CT Brain CT CT Interpretation Completed By: Radiologist Summary of CT Findings: IMPRESSION: No evidence for acute intracranial abnormality. Dr. Carolina has reviewed this report. - EKG 13:18 Cardiac Rate: NL - at 71 bpm EKG Rhythm: Sinus Rhythm EKG Comparison: No Significant Change - Similar to prior EKG on 03/11/19. Summary of EKG Findings: LVH. ST elevation in anterior leads sec to LVH. Re-Evaluation - Re-Evaluation First Eval Re-Evaluation Time: 15:10 Comment: Performed rectal exam. Complex Multi-Symp Course/Dx Assessment/Plan: Pt is an 83 y/o female presenting to [facility] via EMS from home for generalized weakness and forgetfulness for the past 2 weeks. Lab results remarkable for hemoglobin of 6.6, hematocrit of 22, creatinine of 1.46, troponin of 0.05, CRP of 26.9, BNP > 1300. Stool occult blood is positive. Brain CT is negative. Chest XR shows mild pulmonary vascular congestion and interstitial edema superimposed on chronic obstructive pulmonary disease. The CHF is less severe than on the March 11, 2019 exam. Case discussed with Dr. Mendez, hospitalist, who accepted the pt for admission. I discussed results with patient. The patient agrees with this plan. - Diagnoses Provider Diagnoses: Symptomatic anemia - Physician Notifications Discussed Care Of Patient With: Jose Mendez - hospitalist Time Discussed With Above Provider: 15:55 Instructed by Provider To: Admit As Inpatient Discharge - Sign-Out/Discharge Documenting (check all that apply): Patient Departure - Admit to [facility] Patient Received Moderate/Deep Sedation with Procedure: No - Discharge Plan Condition: Stable Disposition: ADMITTED TO [facility] - Billing Disposition and Condition Condition: STABLE Disposition: Admitted to [facility] - Attestation Statements Document Initiated by Aftab: Yes Documenting Scribe: Tyesha Desai Provider For Whom Aftab is Documenting (Include Credential): Azul Carolina MD Scribe Attestation: Tyesha Barahona, scribed for Azul Carolina MD on 04/30/19 at 1923. Scribe Documentation Reviewed: Yes Provider Attestation: The documentation as recorded by the Tyesha hall accurately reflects the service I personally performed and the decisions made by me, Azul Carolina MD Status of Scribe Document: Viewed
[2019-04-30 14:11] LABS: Activated Partial Thrombo Time 25.3 seconds (26.0-38.0); INR 1.03 (0.82-1.09)
[2019-04-30 14:13] LABS: ABS Eosinophils 0.1 10^3/ul (0-0.6); ABS Monocytes 0.8 10^3/ul (0-0.8); ABS Neutrophils 7.2 10^3/ul (1.5-7.7); Eosinophil % 1.2 %; Hematocrit 22 % (35-47); Hemoglobin 6.6 g/dL (12.0-16.0); Lymphocyte % 11.4 %; Mean Corpuscular HGB Conc 31 g/dL (31-36); Mean Corpuscular Hemoglobin 27 pg (27-31); Mean Corpuscular Volume 88 fL (80-97); Mean Platelet Volume 9.9 fL (7.4-10.4); Platelet Count 170 10^3/uL (150-450); Red Blood Count 2.46 10^6 /uL (3.70-4.87); Red Cell Distribution Width 19 % (10.5-15); White Blood Count 9.2 10^3/uL (3.5-10.8)
[2019-04-30 14:24] LABS: ALT 10 U/L (7-52); AST 17 U/L (13-39); Albumin/Globulin Ratio 1.3 (1-3); Alkaline Phosphatase 50 U/L (34-104); Anion Gap 5 mmol/L (2-11); BUN/Creatinine Ratio 20.5 (8-20); Blood Urea Nitrogen 30 mg/dL (6-24); C Reactive Protein 26.95 mg/L (<8.01); CO2 Carbon Dioxide 29 mmol/L (22-32); Calcium 8.2 mg/dL (8.6-10.3); Chloride 108 mmol/L (101-111); EGFR African American 41.5 (>60); EGFR Non-African American 34.3 (>60); Globulin 2.3 g/dL (2-4); Glucose 77 mg/dL (70-100); Magnesium 1.9 mg/dL (1.9-2.7); Sodium 142 mmol/L (135-145); Total Protein 5.3 g/dL (6.4-8.9)
[2019-04-30 14:32] LABS: Troponin I 0.05 ng/mL (<0.04)
[2019-04-30 15:01] LABS: TSH (Thyroid Stimulating Horm) 3.81 mcIU/mL (0.34-5.60)
[2019-04-30] MEDS ORDERED: Furosemide IV* 10 MG/ML VIAL (40 MG) IV SLOW PU ONE (15:17)
[2019-04-30 16:00] LABS: Urine Appearance Clear; Urine Bacteria Absent (Absent); Urine Bilirubin Negative (Negative); Urine Blood Negative (Negative); Urine Color Straw; Urine Glucose Negative (Negative); Urine Ketones Negative (Negative); Urine Nitrite Negative (Negative); Urine Protein Negative (Negative); Urine Red Blood Cell Absent (Absent); Urine Specific Gravity 1.011 (1.010-1.030); Urine Squamous Epithelial Cell Present (Absent); Urine Urobilinogen Negative (Negative); Urine White Blood Cell 2+(11-20/hpf) (Absent)
[2019-04-30] MEDS: Carvedilol TAB* 6.25 MG PO SCH (18:23)
--- NOTE | 2019-04-30 20:29 | HP ---
CC: Dr. Anderson; Dr. Pleitez * HISTORY AND PHYSICAL: DATE OF ADMISSION: 04/30/19 PROVIDER: Tung Ball NP. PRIMARY CARE PROVIDER: Dr. Anderson. PRIMARY ELECTRICAL ASSEMBLY SUPERVISOR: Dr. Pleitez. ATTENDING PHYSICIAN WHILE IN THE HOSPITAL: Dr. Jose Mendez * (dictated by Tung Ball NP). CHIEF COMPLAINT: Weakness. HISTORY OF PRESENT ILLNESS: Ms. Gutierrez is an 83-year-old female with a past medical history significant for systolic congestive heart failure with an ejection fraction of 35% to 40%, hypertension, hyperlipidemia, osteoarthritis, PMR, iron deficiency anemia, coronary artery disease, peripheral vascular disease, and chronic kidney disease stage 3, who presented to the emergency room with complaints of generalized weakness. The patient reports, "I could not walk this morning, I was staggering all over." The patient reports she has had progressively worsening weakness x3 weeks. The patient was recently admitted in the hospital on 03/05/19 and was discharged to [facility] on 03/15. The patient rehabbed at [facility] until 04/12/19, and at that time, she was discharged home. Her admission back in February was due to generalized weakness as well, and she was found to have epistaxis and pneumonia and altered mental status with baseline vascular dementia. The patient reports that she has had black stools x2 to 3 weeks. The reports that yesterday the patient reported that her arms just felt heavy and she felt weak all over. Due to the progressively worsening weakness, she presented to the emergency room today for further evaluation. While in the emergency room, the patient had routine lab work drawn. She was found to have an H and H of 6.6 and 22. Chest x-ray showed mild vascular congestion. She was given 40 Lasix in the emergency room, 2 L of IV fluids and a unit of blood. The patient denies any fever, chills, or unintended weight loss. Denies any chest pain or edema. Denies any cough or hemoptysis. She does report shortness of breath. Denies any nausea, vomiting, diarrhea, or abdominal pain. She does report black stools 2 times a day for 3 to 4 weeks. She denies any gross hematuria, dysuria, focal weakness, or sensory loss. Denies any visual complaints, dysphagia, arthralgias, myalgias, rashes, lesions , or open sores. Denies any psychosis or anxiety. Due to her profound anemia and generalized weakness, we were asked to see and evaluate her for admission. PAST MEDICAL HISTORY: Significant for: 1. Systolic congestive heart failure with an ejection fraction of 35% to 40%. 2. Hypertension. 3. Hypercholesterolemia. 4. Osteoarthritis. 5. PMR. 6. Iron deficiency anemia. 7. Coronary artery disease, status post PCI. 8. Peripheral vascular disease. 9. History of V-tach with cardiac arrest. 10. Subclavian steal syndrome. 11. Chronic kidney disease, stage 3. 12. Possible history of a stroke as a complication of carotid endarterectomy. PAST SURGICAL HISTORY: 1. Bilateral femoral bypass. 2. Left carotid endarterectomy. 3. Cholecystectomy. 4. Bilateral cataract surgery. 5. Tubal ligation. 6. Hysterectomy. 7. History of blood patch. 8. Cardiac catheterization. MEDICATIONS: Home medications include: 1. Lipitor 40 mg p.o. daily. 2. Gabapentin 300 mg p.o. at bedtime. 3. Clonazepam 0.5 mg 2 at bedtime. 4. Carvedilol 6.25 mg p.o. b.i.d. 5. Tramadol 25 mg as needed for pain. 6. Tylenol 650 mg as needed for pain. 7. Ferrous sulfate 1 to 2 tablets daily. 8. Docusate sodium 1 tablet 1 to 2 times a day as needed. 9. Melatonin 5 mg at bedtime as needed. 10. Nitro as needed. 11. Prednisone currently 15 mg p.o. daily. 12. Escitalopram 10 mg p.o. daily. 13. Pantoprazole 40 mg p.o. daily. 14. Furosemide 20 mg daily. 15. Caltrate 600 mg twice daily. 16. Amiodarone 50 mg daily. 17. Magnesium oxide 400 mg daily. 18. Acidophilus 1 tab p.o. daily. 19. Potassium chloride 20 mEq twice daily. 20. Vitamin B12 1000 units daily. 21. Aspirin 81 mg p.o. daily. Current dose of prednisone is 15 mg x1 more day and then she will drop to 10 mg daily. ALLERGIES: 1. NUTS. 2. MONOSODIUM GLUTAMATE. 3. CEPHALEXIN. 4. IBUPROFEN. 5. CHESTNUTS. 6. METALS. 7. SEASONAL HAY FEVER ALLERGIES. FAMILY HISTORY: Father in an accident. Mother of natural causes. Daughter with a history of lung cancer. 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 She is . She is currently living with her . Surrogate decision maker in the event she is unable to make her own decision is her . She is a DNR/DNI. REVIEW OF SYSTEMS: An 11-point review of systems was completed. All pertinent positives were mentioned in the HPI, otherwise were negative. PHYSICAL EXAMINATION GENERAL: Ms. Gutierrez is an 83-year-old female. She is resting comfortably on the stretcher in the emergency room. She is alert and oriented. Her color is pale. She is in no acute distress. VITAL SIGNS: Blood pressure 171/68, heart rate 72, respirations 17, O2 saturation 95%, temperature was 98.1. HEENT: Head is atraumatic, normocephalic. Eyes: EOMs are intact. Sclerae anicteric and not pale. Oral mucosa appeared to be moist. NECK: Supple. LUNGS: Clear with diminished breath sounds in the bases bilaterally. There are no wheezes, rales, or rhonchi. CARDIAC: S1, S2. No rubs or gallops. ABDOMEN: Soft and nontender. Bowel sounds are present x4. EXTREMITIES: She is able to move all 4 extremities. There is no clubbing or cyanosis. NEUROLOGIC: The patient is awake, alert. She is oriented x3. She is able to answer questions appropriately. There are no gross focal deficits. SKIN: Intact. LABORATORY DATA AND DIAGNOSTIC STUDIES: WBCs are 9.2, RBCs 2.46, hemoglobin 6.6, hematocrit is 22, platelet count is 170. INR is 1.03. Sodium 142, potassium 4.0, chloride 108, carbon dioxide is 29, anion gap is 5, BUN is 30, creatinine 1.46, glucose is 77. Calcium 8.2. Magnesium 1.9. Total bilirubin 1.10. AST is 17, ALT is 10, alkaline phosphatase is 50. Troponin is 0.05. C- reactive protein is 26.95. BNP is greater than 1300. TSH is 3.81. Urine was within normal limits with the exception of leukocyte esterase of +1, wbc's were +1, squamous epithelial cells were present, and bacteria was absent. She had a CT of the brain, radiologist's impression: No evidence for acute intracranial abnormality. She had a chest x-ray; mild pulmonary vascular congestion and interstitial edema superimposed on chronic obstructive pulmonary disease, CHF is less severe than when compared to 03/11/19. She had an electrocardiogram, which showed sinus rhythm at a rate of 71, ST changes in V1 to 3, appeared to be chronic when compared to EKG from 03/11/19. ASSESSMENT AND PLAN: Ms. Gutierrez is an 83-year-old female with a past medical history significant for systolic congestive heart failure, hypertension, hyperlipidemia, chronic iron deficiency anemia, coronary artery disease, peripheral vascular disease, chronic kidney disease stage 3, and polymyalgia rheumatica, who presented to the emergency room with complaints of generalized weakness and black stools x3 weeks. She will be admitted inpatient for: 1. Weakness. I suspect her weakness is related to deconditioning as well as profound anemia. The patient was found to have H and H of 6.6 and 22. She was transfused 1 unit of blood in the emergency room. We will continue to trend her H and H. I will place her on Protonix 40 mg p.o. b.i.d. I have consulted GI, Dr. Jeffers. I will type and cross [address] them on hold in the event the patient should need further blood transfusions. The patient has no acute melena at this time or profuse bleeding. Her vital signs are stable. She is not tachycardic and she is not hypotensive. We will continue to monitor on telemetry and monitor her vital signs throughout her hospitalization. I will place her on clear liquid diet, n.p.o. for breakfast in the event she will have an upper endoscopy tomorrow. 2. Coronary artery disease. We will continue on her carvedilol and amiodarone as previously prescribed. I am going to hold her aspirin 81 mg as she does have heme- positive stools. 3. High cholesterol. She will continue on atorvastatin as previously prescribed. 4. Chronic kidney disease, stage 3. We will avoid nephrotoxic medications and continue to monitor her renal function. 5. Shortness of breath. The patient did complain of mild shortness of breath. Chest x-ray did show mild pulmonary vascular congestion. She did receive Lasix 40 mg in the emergency room and has been voiding since Lasix was given. We will continue to monitor her daily weights and I's and O's and watch for any further episodes of congestive heart failure. 6. FEN: She can have a clear liquid diet. She will be n.p.o. for breakfast. 7. Code status: She is a DNR/DNI. 8. DVT prophylaxis: I will place her on SCDs as chemical DVT prophylaxis is contraindicated at this time as the patient does have a GI bleed. 9. Polymyalgia rheumatica. I am going to continue her on prednisone 7.5 mg as this can increase irritation to the stomach and cause gastrointestinal bleeding. TIME SPENT: Time spent on this admission was approximately 60 minutes, greater than half that time was spent at the bedside reviewing events leading thus far to her hospitalization, performing physical exam, and reviewing my plan of care. I have discussed this with my attending Dr. Jose Mendez; he is in agreement with my plan. TUNG BALL, PUMP HOUSE TECHNICIAN [id number]/[facility] #: [id number] COREY
[2019-04-30] MEDS ORDERED: Docusate CAP* 100 MG PO SCH (21:00)
[2019-04-30] MEDS ORDERED: Carvedilol TAB* 6.25 MG PO SCH (21:00)
[2019-04-30] MEDS ORDERED: Melatonin 3 MG TAB PO PRN (21:14)
[2019-04-30] MEDS: Atorvastatin* 40 MG TAB PO SCH (22:24)
[2019-04-30] MEDS: Pantoprazole TAB * 40 MG TAB PO SCH (22:24)
[2019-04-30] MEDS: Acetaminophen TAB* 325 MG PO PRN (22:24)
[2019-04-30] MEDS: traMADol TAB* 50 MG PO SCH (22:28)
[2019-04-30] MEDS: Gabapentin CAP(*) 300 MG PO SCH (22:29)
[2019-05-01 00:35] LABS: Hematocrit 27 % (35-47); Hemoglobin 8.8 g/dL (12.0-16.0)
[2019-05-01 07:03] LABS: ABS Eosinophils 0.2 10^3/ul (0-0.6); ABS Monocytes 0.9 10^3/ul (0-0.8); ABS Neutrophils 7.3 10^3/ul (1.5-7.7); Eosinophil % 1.9 %; Hematocrit 29 % (35-47); Mean Corpuscular HGB Conc 32 g/dL (31-36); Mean Corpuscular Hemoglobin 27 pg (27-31); Mean Corpuscular Volume 85 fL (80-97); Mean Platelet Volume 10.2 fL (7.4-10.4); Platelet Count 185 10^3/uL (150-450); Red Blood Count 3.39 10^6 /uL (3.70-4.87); Red Cell Distribution Width 19 % (10.5-15); White Blood Count 9.4 10^3/uL (3.5-10.8)
[2019-05-01 07:20] LABS: BUN/Creatinine Ratio 17.5 (8-20); Calcium 9.3 mg/dL (8.6-10.3); EGFR African American 35.8 (>60); EGFR Non-African American 29.6 (>60); Potassium 3.6 mmol/L (3.5-5.0)
[2019-05-01 08:44] LABS: Troponin I 0.06 ng/mL (<0.04)
[2019-05-01] MEDS: Amiodarone TAB* 200 MG PO SCH (10:10)
[2019-05-01] MEDS: traMADol TAB* 50 MG PO SCH ×2 (10:11→20:51)
[2019-05-01] MEDS: predniSONE TAB* 5 MG PO SCH (10:11)
[2019-05-01] MEDS: Cyanocobalamin TAB* 500 MCG PO SCH (10:11)
[2019-05-01] MEDS: Escitalopram * 10 MG TAB PO SCH (10:11)
[2019-05-01] MEDS: Carvedilol TAB* 6.25 MG PO SCH ×2 (10:11→20:52)
[2019-05-01] MEDS: Pantoprazole TAB * 40 MG TAB PO SCH ×2 (10:11→20:53)
[2019-05-01 14:59] LABS: ABS Basophils 0.1 10^3/ul (0-0.2); ABS Eosinophils 0.2 10^3/ul (0-0.6); ABS Lymphocytes 1.2 10^3/ul (1.0-4.8); ABS Monocytes 0.8 10^3/ul (0-0.8); ABS Neutrophils 6.8 10^3/ul (1.5-7.7); Hematocrit 30 % (35-47); Hemoglobin 9.5 g/dL (12.0-16.0); Lymphocyte % 13.5 %; Mean Corpuscular HGB Conc 31 g/dL (31-36); Mean Corpuscular Hemoglobin 27 pg (27-31); Mean Corpuscular Volume 85 fL (80-97); Mean Platelet Volume 9.4 fL (7.4-10.4); Nucleated Red Blood Cells % 0.1; Platelet Count 199 10^3/uL (150-450); Red Blood Count 3.59 10^6 /uL (3.70-4.87); Red Cell Distribution Width 19 % (10.5-15); White Blood Count 9.2 10^3/uL (3.5-10.8)
--- NOTE | 2019-05-01 17:05 | PN ---
Subjective Date of Service: 05/01/19 Interval History: HOSPITALIST PROGRESS NOTE Patient seen and examined at bedside. Care reviewed and d/w Sneha Patel RN. She states her weakness is better. Pleasantly confused, offers no other complaints. Family History: Unchanged from Admission Social History: Unchanged from Admission Past Medical History: Unchanged from Admission Objective Active Medications: Acetaminophen (Tylenol Tab*) 650 mg PO Q4H PRN PRN Reason: FEVER/PAIN Last Admin: 04/30/19 22:24 Dose: 650 mg Amiodarone HCl (Cordarone Tab*) 50 mg PO DAILY [facility] Last Admin: 05/01/19 10:10 Dose: Not Given Atorvastatin Calcium (Lipitor*) 40 mg PO BEDTIME [facility] Last Admin: 04/30/19 22:24 Dose: 40 mg Carvedilol (Coreg Tab*) 6.25 mg PO 0900,2100 [facility] Last Admin: 05/01/19 10:11 Dose: Not Given Cyanocobalamin (Vitamin B12 Tab*) 1,000 mcg PO DAILY [facility] Last Admin: 05/01/19 10:11 Dose: Not Given Escitalopram Oxalate (Lexapro *) 10 mg PO DAILY [facility] Last Admin: 05/01/19 10:11 Dose: Not Given Gabapentin (Neurontin Cap(*)) 300 mg PO BEDTIME [facility] Last Admin: 04/30/19 22:29 Dose: 300 mg Melatonin (Melatonin) 3 mg PO BEDTIME PRN PRN Reason: SLEEP Pantoprazole Sodium (Protonix Tab*) 40 mg PO BID [facility] Last Admin: 05/01/19 10:11 Dose: Not Given Prednisone (Deltasone Tab*) 7.5 mg PO DAILY [facility] Last Admin: 05/01/19 10:11 Dose: Not Given Tramadol HCl (Ultram*) 50 mg PO BID [facility] Last Admin: 05/01/19 10:11 Dose: Not Given Oxygen Devices in Use Now: Nasal Cannula - 3 liters Appearance: Pleasantly confused elderly lady lying in bed in NAD. Eyes: No Scleral Icterus Ears/Nose/Mouth/Throat: Mucous Membranes Moist Neck: Trachea Midline Respiratory: Symmetrical Chest Expansion and Respiratory Effort, Clear to Auscultation Cardiovascular: RRR - Normal S1 and S2 Abdominal: NL Sounds; No Tenderness; No Distention Neurological: - - AAOx2 (self and place), WILKERSON, strength 4/5 all 4. Face is symmetric, grimmace intact, finger to nose and heel to samuel are WNL. Result Diagrams: 05/01/19 14:41 05/01/19 05:41 Microbiology and Other Data: Microbiology 04/30/19 15:48 Urine Culture - Preliminary Urine Enterococcus Faecalis 04/30/19 13:41 Aerobic Blood Culture - Preliminary Blood Venous No Growth Day 1 Anaerobic Blood Culture - Preliminary No Growth Day 1 04/30/19 13:46 Aerobic Blood Culture - Preliminary Blood Venous No Growth Day 1 Anaerobic Blood Culture - Preliminary No Growth Day 1 04/30/19 15:15 Stool Occult Blood (SARAH) - Final Stool Assess/Plan/Problems-Billing Assessment: Mrs Gutierrez is an 83yo F with PMH of dementia, systolic CHF with EF 35-40%, HTN, HLD, DJD, PMR, DARSHANA, CAD s/p PCI, PVD, h/o Vtach with cardiac arrest, subclavian steal syndrome, CKD stage 3, possible stroke in the setting of CEA; who presented to ED with c/o generalized weakness, found to have significant anemia. - Patient Problems (1) Weakness Comment: - Likely secondary to worsening anemia. - UA mildly abnormal, but UCx growing 10-25k Enterococcus, suggestive of colonization, not infection. - PT consult. (2) Anemia Comment: - Patient has chronic anemia - admission in February with epistaxis. - On low dose Aspirin as outpatient. - Patient reports black stool x 3 weeks, but unclear how reliable this information is. - In February GI recommended conservative treatment with PPI, did not have EGD. - Stool for occult blood is positive. - Recent anemia w/u compatible with DARSHANA. - H/H 6.6 on admission; last one 9.04/25 after 1 PRBC - exagerated response suggests maybe initial H/H was higher - will continue to monitor. - D/w GI - plan for possible EGD tomorrow. - Continue Pantoprazole BID. (3) GI bleed Comment: - No signs of active GI bleed at this time, but stool is positive for blood. (4) CAD (coronary artery disease) Comment: - With h/o Vtach. - Continue Amiodarone and Atorvastatin. - Resume Aspirin - although she has anemia and positive occult blood in her stool, she has a strong h/o cardiovascular disease, including CAD, PVD, stroke. (5) Chronic systolic heart failure Comment: - Stable at this time. (6) Troponin level elevated Comment: - Suspect femand ischemia in the setting of anemia in patient with known CAD and CKD. (7) CKD (chronic kidney disease) Comment: - CKD stage 3 - creatinine at baseline. (8) PMR (polymyalgia rheumatica) Comment: - Continue prednisone. (9) DVT prophylaxis Comment: - SCDs. - No pharmacological prophylaxis in the setting of possible GI bleed. (10) DNR (do not resuscitate) Status and Disposition: Inpatient.
--- NOTE | 2019-05-01 18:33 | CONS ---
CC: Dr. See * GASTROENTEROLOGY CONSULT REPORT: DATE OF CONSULTATION: 05/01/19 REQUESTING PROVIDER: Dr. See. REASON FOR CONSULT: Anemia and concern for melena. HISTORY OF PRESENT ILLNESS: Ms. Gutierrez is an 83-year-old woman with multiple medical conditions including mild dementia, CAD, hypertension, CKD, peripheral vascular disease, moderate aortic stenosis, and a history of a stroke, who is admitted with symptomatic anemia and concern for melena. Ms. Gutierrez was admitted to the hospital initially in early February and discharged to [facility]. She was hospitalized at that time for generalized weakness. Medical course also notable for epistaxis, anemia, pneumonia, and altered mental status. Ms. Gutierrez was seen by Dr. Jeffers during the hospitalization on 02/28/19 for melena. Suspicion was that she may have had some melena related episodes of significant epistaxis. The patient was felt to be a fairly poor candidate for moderate sedation endoscopy, and the recommendation was to manage conservatively. No endoscopic assessment pursued during that hospitalization. [facility] at [facility] until 04/12/19 when she was discharged to home. Regarding current admission, Ms Gutierrez was noted to have progressive generalized weakness over past few weeks. The patient is quite sleepy at the time of my interview, so history was obtained from and the chart. Patient has had some dark to black stools over the same time period. The patient has not had any recent episodes of epistaxis. In the ER, she was noted to have a hemoglobin of 6.6 and a hematocrit of 22. Troponin mildly elevated to 0.05. The patient was given 1 unit of blood and admitted to the hospital. Follow-up blood counts have shown an increasing hemoglobin to 9.5. No further bowel movements since admission. The patient has been hemodynamically stable. Of note, the last EGD was in 2016 and demonstrated mild gastritis. Left colonoscopy was in 2011 and revealed 2 small polyps. REVIEW OF SYSTEMS: Unable to perform complete review of systems as patient was quite sleepy during the interview. PAST MEDICAL HISTORY: 1. Systolic congestive heart failure with an EF of 35% to 40%. 2. Hypertension. 3. Hypercholesterolemia. 4. Osteoarthritis. 5. PMR. 6. Iron deficiency anemia. 7. CAD, status post PCI. 8. Peripheral vascular disease. 9. History of V-tach with cardiac arrest. 10. Subclavian steal syndrome. 11. CKD. 12. History of a stroke as a complication of carotid endarterectomy. There is mention of COPD in prior notes and chest x-ray, although this is not listed as a formal diagnosis on H&P for this admission. No inhalers on patient's home med list. PAST SURGICAL HISTORY: 1. Bilateral femoral bypass. 2. Left carotid endarterectomy. 3. Cholecystectomy. 4. Bilateral cataract surgery. 5. Tubal ligation. 6. Hysterectomy. MEDICATIONS: Home medications, per H&P, include: 1. Lipitor 40 daily. 2. Gabapentin 300 at bedtime. 3. Klonopin at bedtime. 4. Carvedilol 6.25 b.i.d. 5. Tramadol 25 p.r.n. 6. Tylenol p.r.n. 7. Ferrous sulfate 1 to 2 tablets daily. 8. Docusate p.r.n. 9. Melatonin p.r.n. 10. Nitro p.r.n. 11. Prednisone 7.5 mg daily. 12. Escitalopram 10 mg daily. 13. Pantoprazole 40 mg daily. 14. Furosemide 20 mg daily. 15. Caltrate 600 twice daily. 16. Amiodarone 50 mg daily. 17. Mag oxide 400 mg daily. 18. Acidophilus daily. 19. Potassium chloride daily. 20. Vitamin B12 daily. 21. Aspirin 81 mg daily. ALLERGIES: NUTS, MSG, CEPHALEXIN, IBUPROFEN, CHESTNUTS, METALS, and SEASONAL ALLERGIES. FAMILY HISTORY: No known GI or liver disease. SOCIAL HISTORY: Per the chart. The patient is . Lives with her . 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 Currently DNR/DNI status. PHYSICAL EXAMINATION: Vital Signs: Afebrile. Heart rate 69, blood pressure 105/62, and 97% on room air. General: She is a comfortable appearing elderly woman. Resting in bed and sleeping off and on. Minimal participation in the conversation. at bedside provides majority of history. HEENT: Mucous membranes are moist. Cardiovascular: Regular rate and rhythm. Lungs: No increased work of breathing. Lungs clear in the anterior lung byrd Abdomen: Soft, nontender, and nondistended. Extremities: No significant edema. Neuro: Complete neurologic exam not performed as patient was quite sleepy during the exam. Skin: Pale, no jaundice. DIAGNOSTIC STUDIES/LAB DATA: White count 9.2. Hemoglobin on arrival was 6.6 with hematocrit of 22. Following a transfusion of blood, she had a hemoglobin of 8.8, followed by 9, followed by 9.5 at noon. INR was normal on admission. Comprehensive panel notable for creatinine of 1.46 on admission, which is now up to 1.66 (consistent with her prior baseline). BUN elevated to 29, which is again within her prior baseline. Albumin is 3. Troponin mildly elevated to 0.06. CRP elevated to 27. BNP elevated. Imaging: Chest x-ray demonstrates a mild pulmonary vascular congestion and interstitial edema superimposed on chronic obstructive pulmonary disease. Brain CT was negative. IMPRESSION AND RECOMMENDATIONS: Ms. Gutierrez is an 83-year-old woman with multiple medical conditions including systolic heart failure, hypertension, chronic iron deficiency anemia, coronary artery disease, peripheral vascular disease, chronic kidney disease, polymyalgia rheumatica, and dementia, who presents with symptomatic anemia and suspected melena. The patient's hemoglobin on admission was 6.6, which is down from 8.3 on . Interestingly, the patient's hemoglobin has now gone up almost 3 g since admission despite only receiving 1 unit of blood. I do wonder if the 6.6 was falsely low. Regardless, it does seem that she has had a decrease in her Hgb as compared to her lab values in February and March. There was report of melena at home for past few weeks, although there have been no episodes since admission. Presentation raises concern for upper GI bleeding source. Reassuringly, the patient is hemodynamically stable with up-trending Hgb. The patient and her have been conservative in regards to her medical treatment recently. The patient is at an increased risk for complications from an endoscopic procedure with sedation given her multiple medical comorbidities. I had a long discussion with the patient's regarding next steps. I offered to proceed with an endoscopic evaluation today or to closely monitor and consider such a procedure if the patient were to show signs of ongoing bleeding in the form of ongoing melena or drop in blood counts. The patient's feels that it is reasonable to closely monitor for now as patient does not appear to be having significant active GI bleeding at this time. - IV Protonix twice a day. - Continue to monitor CBC every 8 hours. - Clear or full liquid diet ok today. Place NPO if any clinical change. - Please notify GI if the patient has any evidence of overt bleeding. Dr. Jeffers will reassess the patient tomorrow. Thank you very much for this consult. GI will continue to follow. [id number]/[facility] #: [id number] [facility] H[facility]PITALRajesh
[2019-05-01] MEDS: Atorvastatin* 40 MG TAB PO SCH (20:51)
[2019-05-01] MEDS: Gabapentin CAP(*) 300 MG PO SCH (20:52)
[2019-05-01] MEDS: Acetaminophen TAB* 325 MG PO PRN (22:27)
[2019-05-01 23:56] LABS: Hematocrit 28 % (35-47); Hemoglobin 9.1 g/dL (12.0-16.0)
[2019-05-02] MEDS ORDERED: hydrALAZINE IV* 20 MG/ML VIAL IV SLOW PU PRN (09:05)
--- NOTE | 2019-05-02 10:05 | PN ---
Subjective Date of Service: 05/02/19 Interval History: Pt feels well, denies pain, poor historian Family History: Unchanged from Admission Social History: Unchanged from Admission Past Medical History: Unchanged from Admission Objective Active Medications: Acetaminophen (Tylenol Tab*) 650 mg PO Q4H PRN PRN Reason: FEVER/PAIN Last Admin: 05/01/19 22:27 Dose: 650 mg Amiodarone HCl (Cordarone Tab*) 50 mg PO DAILY [facility] Last Admin: 05/01/19 10:10 Dose: Not Given Aspirin (Aspirin Ec Tab*) 81 mg PO DAILY [facility] Atorvastatin Calcium (Lipitor*) 40 mg PO BEDTIME [facility] Last Admin: 05/01/19 20:51 Dose: 40 mg Carvedilol (Coreg Tab*) 6.25 mg PO 0900,2100 [facility] Last Admin: 05/01/19 20:52 Dose: 6.25 mg Cyanocobalamin (Vitamin B12 Tab*) 1,000 mcg PO DAILY [facility] Last Admin: 05/01/19 10:11 Dose: Not Given Escitalopram Oxalate (Lexapro *) 10 mg PO DAILY [facility] Last Admin: 05/01/19 10:11 Dose: Not Given Gabapentin (Neurontin Cap(*)) 300 mg PO BEDTIME [facility] Last Admin: 05/01/19 20:52 Dose: 300 mg Hydralazine HCl (Apresoline Iv*) 5 mg IV SLOW PU Q6H PRN PRN Reason: HTN Melatonin (Melatonin) 3 mg PO BEDTIME PRN PRN Reason: SLEEP Last Admin: 05/01/19 20:53 Dose: 3 mg Pantoprazole Sodium (Protonix Tab*) 40 mg PO BID [facility] Last Admin: 05/01/19 20:53 Dose: 40 mg Prednisone (Deltasone Tab*) 7.5 mg PO DAILY [facility] Last Admin: 05/01/19 10:11 Dose: Not Given Tramadol HCl (Ultram*) 50 mg PO BID [facility] Last Admin: 05/01/19 20:51 Dose: 50 mg Vital Signs - 8 hr 05/02/19 03:48 Temperature 97.6 F Pulse Rate 75 Respiratory 18 Rate Blood Pressure 168/57 (mmHg) O2 Sat by Pulse 97 Oximetry Oxygen Devices in Use Now: Nasal Cannula Result Diagrams: 05/01/19 23:51 05/01/19 05:41 Microbiology and Other Data: Microbiology 04/30/19 15:48 Urine Culture - Preliminary Urine Enterococcus Faecalis 04/30/19 13:41 Aerobic Blood Culture - Preliminary Blood Venous No Growth Day 1 Anaerobic Blood Culture - Preliminary No Growth Day 1 04/30/19 13:46 Aerobic Blood Culture - Preliminary Blood Venous No Growth Day 1 Anaerobic Blood Culture - Preliminary No Growth Day 1 04/30/19 15:15 Stool Occult Blood (SARAH) - Final Stool Assess/Plan/Problems-Billing Assessment: Mrs Gutierrez is an 83yo F with PMH of dementia, systolic CHF with EF 35-40%, HTN, HLD, DJD, PMR, DARSHANA, CAD s/p PCI, PVD, h/o Vtach with cardiac arrest, subclavian steal syndrome, CKD stage 3, possible stroke in the setting of CEA; who presented to ED with c/o generalized weakness, found to have significant anemia. Status and Disposition: Inpatient.
--- NOTE | 2019-05-02 10:19 | PN ---
Subjective Date of Service: 05/02/19 Interval History: Pt has no complaints, NPO today for poss procedure, but after a phone conversation with pt's it was decided that Dawit() will come to [facility] [place] today and d/w his , who is not able to make the decision without him Family History: Unchanged from Admission Social History: Unchanged from Admission Past Medical History: Unchanged from Admission Objective Active Medications: Acetaminophen (Tylenol Tab*) 650 mg PO Q4H PRN PRN Reason: FEVER/PAIN Last Admin: 05/01/19 22:27 Dose: 650 mg Amiodarone HCl (Cordarone Tab*) 50 mg PO DAILY [facility] Last Admin: 05/01/19 10:10 Dose: Not Given Aspirin (Aspirin Ec Tab*) 81 mg PO DAILY [facility] Atorvastatin Calcium (Lipitor*) 40 mg PO BEDTIME [facility] Last Admin: 05/01/19 20:51 Dose: 40 mg Carvedilol (Coreg Tab*) 6.25 mg PO 0900,2100 [facility] Last Admin: 05/01/19 20:52 Dose: 6.25 mg Cyanocobalamin (Vitamin B12 Tab*) 1,000 mcg PO DAILY [facility] Last Admin: 05/01/19 10:11 Dose: Not Given Escitalopram Oxalate (Lexapro *) 10 mg PO DAILY [facility] Last Admin: 05/01/19 10:11 Dose: Not Given Gabapentin (Neurontin Cap(*)) 300 mg PO BEDTIME [facility] Last Admin: 05/01/19 20:52 Dose: 300 mg Hydralazine HCl (Apresoline Iv*) 5 mg IV SLOW PU Q6H PRN PRN Reason: HTN Last Admin: 05/02/19 10:03 Dose: 5 mg Melatonin (Melatonin) 3 mg PO BEDTIME PRN PRN Reason: SLEEP Last Admin: 05/01/19 20:53 Dose: 3 mg Pantoprazole Sodium (Protonix Tab*) 40 mg PO BID [facility] Last Admin: 05/01/19 20:53 Dose: 40 mg Prednisone (Deltasone Tab*) 7.5 mg PO DAILY [facility] Last Admin: 05/01/19 10:11 Dose: Not Given Tramadol HCl (Ultram*) 50 mg PO BID [facility] Last Admin: 05/01/19 20:51 Dose: 50 mg Vital Signs - 8 hr 05/02/19 03:48 Temperature 97.6 F Pulse Rate 75 Respiratory 18 Rate Blood Pressure 168/57 (mmHg) O2 Sat by Pulse 97 Oximetry Oxygen Devices in Use Now: Nasal Cannula Appearance: 83 yo Fin nAD, aAOx2, poor historian Eyes: No Scleral Icterus, PERRLA Ears/Nose/Mouth/Throat: NL Teeth, Lips, Gums, Mucous Membranes Moist Neck: NL Appearance and Movements; NL JVP, Trachea Midline Respiratory: Symmetrical Chest Expansion and Respiratory Effort, Clear to Auscultation Cardiovascular: NL Sounds; No Murmurs; No JVD Abdominal: NL Sounds; No Tenderness; No Distention Lymphatic: No Cervical Adenopathy Extremities: No Edema, No Clubbing, Cyanosis Skin: No Rash or Ulcers, No Nodules or Sclerosis Neurological: NL Muscle Strength and Tone Result Diagrams: 05/02/19 09:54 05/02/19 09:54 Microbiology and Other Data: Microbiology 04/30/19 15:48 Urine Culture - Preliminary Urine Enterococcus Faecalis 04/30/19 13:41 Aerobic Blood Culture - Preliminary Blood Venous No Growth Day 1 Anaerobic Blood Culture - Preliminary No Growth Day 1 04/30/19 13:46 Aerobic Blood Culture - Preliminary Blood Venous No Growth Day 1 Anaerobic Blood Culture - Preliminary No Growth Day 1 04/30/19 15:15 Stool Occult Blood (SARAH) - Final Stool Assess/Plan/Problems-Billing Assessment: Mrs Gutierrez is an 83yo F with PMH of dementia, systolic CHF with EF 35-40%, HTN, HLD, DJD, PMR, DARSHANA, CAD s/p PCI, PVD, h/o Vtach with cardiac arrest, subclavian steal syndrome, CKD stage 3, possible stroke in the setting of CEA; who presented to ED with c/o generalized weakness, found to have significant anemia. - Patient Problems (1) Anemia Comment: - Patient has chronic anemia - admission in February with epistaxis. - On low dose Aspirin as outpatientdue to NSTEMI in 02/2019 - Patient reports black stool x 3 weeks, but unclear how reliable this information is. - In February GI recommended conservative treatment with PPI, did not have EGD. - Stool for occult blood is positive. - Recent anemia w/u compatible with DARSHANA. - H/H 6.05/18 on admission-now stable post transfusion 1 PRBC - D/w GI - plan for possible EGD tomorrow if pt and agree - Continue Pantoprazole BID. (2) CAD (coronary artery disease) Comment: - With h/o Vtach. - Continue Amiodarone and Atorvastatin. - Resumed Aspirin 05/01/19 - although she has anemia and positive occult blood in her stool, she has a strong h/o cardiovascular disease, including CAD, PVD, stroke. (3) CKD (chronic kidney disease) Current Visit: Yes Comment: - CKD stage 3 - creatinine at baseline. (4) Chronic systolic heart failure Comment: - Stable at this time. (5) GI bleed Comment: - No signs of active GI bleed at this time, but stool is positive for blood. (6) PMR (polymyalgia rheumatica) Comment: - Continue prednisone. (7) Troponin level elevated Comment: - Suspect femand ischemia in the setting of anemia in patient with known CAD and CKD. (8) Weakness Comment: - Likely secondary to worsening anemia. - UA mildly abnormal, but UCx growing 10-25k Enterococcus, suggestive of colonization, not infection. - PT consult. (9) DVT prophylaxis Comment: - SCDs. - No pharmacological prophylaxis in the setting of possible GI bleed. (10) Urine culture positive Comment: for up to 25 000 colonies of E faecalis-not clinically significant Status and Disposition: Inpatient.
[2019-05-02 10:20] LABS: ABS Basophils 0.1 10^3/ul (0-0.2); ABS Eosinophils 0.1 10^3/ul (0-0.6); ABS Lymphocytes 1.1 10^3/ul (1.0-4.8); ABS Monocytes 0.6 10^3/ul (0-0.8); Eosinophil % 1.8 %; Hematocrit 30 % (35-47); Hemoglobin 9.8 g/dL (12.0-16.0); Lymphocyte % 14.5 %; Mean Corpuscular HGB Conc 32 g/dL (31-36); Mean Corpuscular Hemoglobin 28 pg (27-31); Mean Corpuscular Volume 85 fL (80-97); Mean Platelet Volume 9.9 fL (7.4-10.4); Platelet Count 190 10^3/uL (150-450); Red Blood Count 3.56 10^6 /uL (3.70-4.87); Red Cell Distribution Width 19 % (10-15); White Blood Count 7.9 10^3/uL (3.5-10.8)
[2019-05-02 10:24] LABS: Calcium 9.2 mg/dL (8.6-10.3); Potassium 3.8 mmol/L (3.5-5.0)
[2019-05-02] MEDS: traMADol TAB* 50 MG PO SCH ×2 (10:25→20:30)
[2019-05-02] MEDS: Cyanocobalamin TAB* 500 MCG PO SCH (10:26)
[2019-05-02] MEDS: Carvedilol TAB* 6.25 MG PO SCH ×2 (10:26→20:30)
[2019-05-02] MEDS: predniSONE TAB* 5 MG PO SCH (10:26)
[2019-05-02] MEDS: Amiodarone TAB* 200 MG PO SCH (10:27)
[2019-05-02] MEDS: Pantoprazole TAB * 40 MG TAB PO SCH ×2 (10:27→20:30)
[2019-05-02 10:30] LABS: BUN/Creatinine Ratio 14.8 (8-20); EGFR African American 38.7 (>60)
[2019-05-02] MEDS: Aspirin EC TAB* 81 MG TAB.EC PO SCH (10:31)
[2019-05-02] MEDS: Escitalopram * 10 MG TAB PO SCH (10:31)
[2019-05-02] MEDS ORDERED: NS 0.9% 250 ML* 250 ML IV ONE (11:49)
[2019-05-02] MEDS: Gabapentin CAP(*) 300 MG PO SCH (20:30)
[2019-05-02] MEDS: Atorvastatin* 40 MG TAB PO SCH (20:30)
[2019-05-03 06:16] LABS: ABS Eosinophils 0.1 10^3/ul (0-0.6); ABS Monocytes 0.9 10^3/ul (0-0.8); ABS Neutrophils 7.2 10^3/ul (1.5-7.7); Eosinophil % 1.4 %; Hematocrit 29 % (35-47); Hemoglobin 9.2 g/dL (12.0-16.0); Lymphocyte % 11.2 %; Mean Corpuscular HGB Conc 32 g/dL (31-36); Mean Corpuscular Hemoglobin 27 pg (27-31); Mean Corpuscular Volume 85 fL (80-97); Mean Platelet Volume 9.8 fL (7.4-10.4); Platelet Count 181 10^3/uL (150-450); Red Blood Count 3.39 10^6 /uL (3.70-4.87); Red Cell Distribution Width 19 % (10-15); White Blood Count 9.3 10^3/uL (3.5-10.8)
[2019-05-03 06:34] LABS: BUN/Creatinine Ratio 15.3 (8-20); Calcium 8.9 mg/dL (8.6-10.3); EGFR African American 38.2 (>60); EGFR Non-African American 31.5 (>60); Potassium 3.6 mmol/L (3.5-5.0)
[2019-05-03] MEDS: Carvedilol TAB* 6.25 MG PO SCH (09:44)
[2019-05-03] MEDS: Escitalopram * 10 MG TAB PO SCH (09:44)
[2019-05-03] MEDS: Aspirin EC TAB* 81 MG TAB.EC PO SCH (09:44)
[2019-05-03] MEDS: traMADol TAB* 50 MG PO SCH (09:45)
[2019-05-03] MEDS: Pantoprazole TAB * 40 MG TAB PO SCH (09:46)
[2019-05-03] MEDS: Cyanocobalamin TAB* 500 MCG PO SCH (09:46)
[2019-05-03] MEDS: predniSONE TAB* 5 MG PO SCH (09:46)
[2019-05-03] MEDS: Amiodarone TAB* 200 MG PO SCH (09:47)
[2019-05-03 11:45] VITALS: BP 160/57
--- NOTE | 2019-05-03 12:40 | DS ---
CC: Dr. Anderson; Dr. Pleitez; Dr. Stiles; Dr. Jeffers DISCHARGE SUMMARY: DATE OF ADMISSION: 04/30/19 DATE OF DISCHARGE: 05/03/19 PRIMARY CARE PROVIDER: Dr. Anderson. DISPOSITION AT DISCHARGE: The patient is going to be discharged home under the care of her and VNS. CONDITION AT DISCHARGE: Stable. DISCHARGE DIAGNOSES: 1. Anemia due to slow chronic GI bleed and generalized weakness due to that. 2. Mild elevated troponin likely due to demand ischemia in patient with anemia. SECONDARY DIAGNOSES: 1. Dementia with elements of paranoia, mild to moderate. 2. History of carotid disease with history of V-tach and recent non-ST elevation FL within the past month. 3. History of chronic kidney disease stage 3. 4. History of chronic systolic CHF with preserved EF. 5. History of polymyalgia rheumatica, on chronic prednisone. MEDICATIONS AT DISCHARGE: Include: 1. Acetaminophen on a p.r.n. basis. 2. Aspirin 81 mg daily. 3. Lipitor 40 mg at bedtime. 4. Calcium, magnesium and zinc supplement 1 tablet b.i.d. 5. Coreg 6.25 mg b.i.d. 6. Clonazepam 1 mg at bedtime p.r.n. 7. Vitamin B12 1000 mcg p.o. daily. 8. Colace 100 mg b.i.d. 9. Lexapro 10 mg daily. 10. Ferrous sulfate 325 mg daily. 11. Lasix 20 mg daily. 12. Gabapentin 300 mg at bedtime. 13. Acidophilus 1 capsule daily. 14. Magnesium oxide 400 mg daily. 15. Nitroglycerin sublingual on a p.r.n. basis. 16. Potassium chloride 20 mEq b.i.d. 17. Prednisone 7.5 mg daily. 18. Ultram 50 mg b.i.d. p.r.n. 19. Amiodarone 50 mg daily. 20. Protonix 40 mg b.i.d. LABORATORY DATA AND STUDIES PERFORMED DURING THE HOSPITAL STAY: Included: On 05/03/19, sodium 142, potassium 3.6, chloride 105, carbon dioxide 29, BUN 24, creatinine 1.57. The patient's troponin peaked at 0.06. Brain natriuretic peptide was over 1300 on 04/30/19. CBC last obtained on 05/03/19, showed white blood cell count of 9.3, hemoglobin 9.2, hematocrit 29, and platelets 181,000. Urine cultures were positive for 10,000 to 25,000 of colonies of Enterococcal faecalis and it was found not to be clinically significant. Stool occult blood was positive documented on 04/30/19. CONSULTATIONS DURING THE HOSPITAL STAY: Included Dr. Stiles and Dr. Jeffers from [facility]. HOSPITAL COURSE: This is the fifth admission of Ms. Gutierrez this year. The patient has been coming in for frequent problems with generalized weakness and anemia. Her last hospital stay that ended on 03/14/19 was complicated by anemia as well as non- ST elevation FL. At that point, the patient was transferred to a rehabilitation facility from which she was discharged approximately a week or two prior to her presentation on 04/30/19 for generalized weakness. The patient was readmitted for generalized weakness. Her hemoglobin was noted to be 6.6 and patient received 1 unit of packed red blood cell transfusion on 04/30/19. Ever since her transfusion, her hemoglobin remained stable in the range of 8 to 9. Her stool was heme positive. She needed to be on aspirin due to her history of recent non-ST elevation FL. Her Protonix dose was increased to b.i.d. The patient was seen by [facility], Dr. Stiles and Dr. Jeffers. Both of them agree that patient has significant risk of undergoing an endoscopy procedure at this point and the yield may be poor. That was discussed with the patient's who decided against the upper endoscopy. At this point, the microbiology quality control technician consultants recommended more of a symptomatic management with repeated transfusions as needed as well as palliative care. Unfortunately, this week we do not have palliative care consultants in the hospital and the patient was referred to a palliative care program associated with visiting nurse association. The patient's is aware that patient should have weekly CBCs to be drawn with the results to be sent to the patient's primary care provider and Dr. Pleitez. If patient becomes significantly anemic, patient should be able to have arranged an outpatient transfusion by primary care provider office. VNS will set up for physical therapy, occupational therapy to follow up with the patient at home, but she was able to ambulate with a walker rather independently by the time of discharge. The patient is on chronic oxygen at 2 to 3 L, which is going to be continued at discharge. The patient is recommended to follow up with primary care provider, Dr. Anderson in 4 to 7 days. PHYSICAL EXAMINATION AT THE TIME OF DISCHARGE: Blood pressure 163/72, heart rate 84 and regular, respiratory rate 20, oxygen saturation 97% on 2 L of oxygen nasal cannula, and temperature 97.5. General: Patient is a pleasant 83- year-old female who is in no acute distress. The patient is alert and oriented x2. HEENT: Head: Atraumatic, normocephalic. Eyes: Pupils are equal and reactive to light and accommodation. Oropharynx clear. Mucosa moist. Neck: Supple. No JVD. No bruits bilaterally. Cardiovascular: Regular rate and rhythm. No murmur. Respiratory: Clear to auscultation bilaterally. Abdomen: Soft, nontender. Bowel sounds present in all 4 quadrants. Extremities: There is no edema. Pulses are +2 bilaterally. No clubbing or cyanosis. On neuro evaluation, speech clear. Cranial nerves II through XII grossly intact. Motor strength is 5/5 bilaterally. Please note that this is a short summary of the patient's hospital stay. Please refer to further medical records for details. CONDITION AT DISCHARGE: Stable. DISPOSITION: Discharged to home. TIME SPENT: Approximately 45 minutes were spent in preparation of patient's discharge. [id number]/CPS #: [id number] COREY
== END 2019-05-03 13:45 | disposition home health service (06) | DRG 812 ==
LOC: ED 12:28 → UNDOADMOB 17:19 → MEDTELE 17:19 → MED 17:30
PROVIDERS: ADMIT Internal Medicine; ATTEND Internal Medicine
PROC: 30233N1 Transfusion of Nonautologous Red Blood Cells into Peripheral Vein, Percutaneous Approach (ICD-10-PCS; principal; 2019-04-30)
DX: D50.0 Iron deficiency anemia secondary to blood loss (chronic) (principal); I13.0 Hypertensive heart and chronic kidney disease with heart failure and stage 1 through stage 4 chronic kidney disease, or unspecified chronic kidney disease; K92.1 Melena; I50.22 Chronic systolic (congestive) heart failure; I24.8 Other forms of acute ischemic heart disease; G45.8 Other transient cerebral ischemic attacks and related syndromes; E78.5 Hyperlipidemia, unspecified; M19.90 Unspecified osteoarthritis, unspecified site; M35.3 Polymyalgia rheumatica; I25.10 Atherosclerotic heart disease of native coronary artery without angina pectoris; I73.9 Peripheral vascular disease, unspecified; N18.3 Chronic kidney disease, stage 3 (moderate); J44.9 Chronic obstructive pulmonary disease, unspecified; F01.50 Vascular dementia, unspecified severity, without behavioral disturbance, psychotic disturbance, mood disturbance, and anxiety; E78.00 Pure hypercholesterolemia, unspecified; Z66 Do not resuscitate; I35.0 Nonrheumatic aortic (valve) stenosis; R74.8 Abnormal levels of other serum enzymes; F22 Delusional disorders; Z86.74 Personal history of sudden cardiac arrest; I25.2 Old myocardial infarction; Z99.81 Dependence on supplemental oxygen; Z98.61 Coronary angioplasty status; Z86.73 Personal history of transient ischemic attack (TIA), and cerebral infarction without residual deficits; Z79.1 Long term (current) use of non-steroidal anti-inflammatories (NSAID); Z79.82 Long term (current) use of aspirin; Z79.52 Long term (current) use of systemic steroids; Z79.899 Other long term (current) drug therapy; Z88.6 Allergy status to analgesic agent; Z91.018 Allergy to other foods; Z88.8 Allergy status to other drugs, medicaments and biological substances; Z91.048 Other nonmedicinal substance allergy status; Z80.1 Family history of malignant neoplasm of trachea, bronchus and lung
CPT/HCPCS: 36415; 70450; 71045; 80048; 80053; 81003; 81015; 82272; 83605; 83735; 83880; 84443; 84484; 85014; 85018; 85025; 85610; 85730; 86140; 86850; 86900; 86901; 86922; 87040; 87077; 87086; 87186; 93005; 99284; A9270-GY; G8981-GP-CJ; G8982-GP-CH; J0360; J1940; J7512; P9016

== ENCOUNTER 2019-06-16 15:51 | Emergency (ER) | payer MEDICARE, OTHER ==
[2019-06-16 16:11] VITALS: BP 120/63
--- NOTE | 2019-06-16 16:32 | UC ---
Knee Pain HPI - HPI Summary HPI Summary: worsening pain in left leg and knee after a fall 5 days ago - History of Current Complaint Chief Complaint: UCLowerExtremity Stated Complaint: LT KNEE INJURY Time Seen by Provider: 06/16/19 16:23 Hx Obtained From: Patient, Family/Naphthalene Operator Hx From Patient Unobtainable Due To: Dementia Hx Last Menstrual Period: years ago. ?: No Onset/Duration: Sudden Onset, Lasting Days - 5, Still Present Location Of Injury: left knee and leg Pain Intensity: 10 Pain Scale Used: 0-10 Numeric Character: Aching Aggravating Factor(s): Movement Alleviating Factor(s): Rest Associated Signs And Symptoms: Positive: Swelling, Bruising Able to Bear Weight: Yes - Allergies/Home Medications Allergies/Adverse Reactions: Allergies Allergy/AdvReac Type Severity Reaction Status Date / Time nut - unspecified Allergy Severe Hives/Diff. Verified 06/16/19 16:12 Breathing/I tching monosodium glutamate AdvReac Mild headache, Verified 06/16/19 16:12 jitters cephalexin AdvReac GI Upset Verified 06/16/19 16:12 ibuprofen AdvReac Nausea Verified 06/16/19 16:12 CHESTNUTS Allergy Severe LIPS SWELL Uncoded 06/16/19 16:12 AND ARE VERY PAINFUL METALS Allergy Unknown Rash Uncoded 06/16/19 16:12 SEASONAL Allergy STUFFY Uncoded 06/16/19 16:12 HAYFEVER/ENVIRONMENTAL NOSE, WATERY EYES Home Medications: Home Medications Melatonin/Pyridoxine HCl (B6) [Melatonin] 1 tab PO QPM 06/16/19 [History Confirmed 06/16/19] PMH/Surg Hx/FS Hx/Imm Hx Previously Healthy: No Endocrine History: Dyslipidemia Cardiovascular History: Hypertension Other History Of: Anticoagulant Therapy Negative For: HIV, Hepatitis B, Hepatitis C - Surgical History Surgical History: Yes Surgery Procedure, Year, and Place: Hysterectomy, 1983, [facility] [place] Choleycystectomy, 1993, [facility] [place]. nose surgery .DR CHIN. B[place].Femoral bypass, 1996, [facility] [place]. Left carotid endardectomy 2013. Right first toe, first joint replacement, 2005, [facility] [place]. LIGATION OF ETHMOIDAL INTERNAL MAXILIARY ARTERIES 2007. MYLEOGRAM. LASER SURGERY FOR EPISTAXIS X 6 OVER PAST 10 YEARS. RIGHT CAROTID ENDARECTOMY 03/01/18 [facility]. PEG TUBE INSERTION 03/12/18 [facility]. NASAL EPISTAXIS [facility] [place] DR. CHIN - Family History Known Family History: Positive: Hypertension Negative: Cardiac Disease - Social History Occupation: Retired Lives: With Family Alcohol Use: None Alcohol Amount: a glass of wine a few times a week Substance Use Type: None Smoking Status (MU): Former Smoker Type: Cigarettes Amount Used/How Often: 1 PPD Length of Time of Smoking/Using Tobacco: 47 YEARS Have You Smoked in the Last Year: No When Did the Patient Quit Smoking/Using Tobacco: 1996 - Immunization History Most Recent Influenza Vaccination: 2017 Most Recent Tetanus Shot: less than 10 years Most Recent Pneumonia Vaccination: 2007 Review of Systems All Other Systems Reviewed And Are Negative: Yes Constitutional: Positive: Negative Skin: Positive: Bruising - left knee Eyes: Positive: Negative ENT: Positive: Negative Respiratory: Positive: Negative Cardiovascular: Positive: Negative Gastrointestinal: Positive: Negative Genitourinary: Positive: Negative Motor: Positive: Negative Neurovascular: Positive: Negative Musculoskeletal: Positive: Arthralgia - left knee and femur Neurological: Positive: Negative Psychological: Positive: Negative Is Patient Immunocompromised?: No Physical Exam Triage Information Reviewed: Yes Appearance: Well-Appearing, No Pain Distress, Thin Vital Signs: Initial Vital Signs Temp 97.3 F 06/16/19 16:05 Pulse 70 06/16/19 16:05 Resp 16 06/16/19 16:05 BP 120/63 06/16/19 16:05 Pulse Ox 95 06/16/19 16:05 Vital Signs Reviewed: Yes Eye Exam: Normal Eyes: Positive: Conjunctiva Clear ENT Exam: Normal ENT: Positive: Normal ENT inspection, Hearing grossly normal. Negative: Trismus , Muffled voice, Hoarse voice Dental Exam: Normal Neck exam: Normal Neck: Positive: Supple, Nontender, No Lymphadenopathy Respiratory Exam: Normal Respiratory: Positive: Chest non-tender, Lungs clear, Normal breath sounds, No respiratory distress, No accessory muscle use Cardiovascular Exam: Normal Cardiovascular: Positive: RRR, No Murmur, Pulses Normal, Brisk Capillary Refill Musculoskeletal Exam: Normal Musculoskeletal: Positive: Strength Intact, ROM Intact, Edema @ - left knee Neurological Exam: Normal Neurological: Positive: Alert, Muscle Tone Normal Psychological Exam: Normal Skin Exam: Normal Diagnostics - Radiology No standard instances Radiology Interpretation Completed By: Radiologist - negative for fractures Knee Pain Course/Dx - Course Course Of Treatment: sara wrap, ice prn, tylenol, follow with Dr. Anderson PRN - Differential Dx/Diagnosis Provider Diagnosis: Contusion of left knee and lower leg Discharge - Sign-Out/Discharge Documenting (check all that apply): Patient Departure All imaging exams completed and their final reports reviewed: Yes - Discharge Plan Condition: Stable Disposition: HOME Patient Education Materials: Acetaminophen (By mouth), Contusion in Adults (ED) Referrals: Grecia Anderson MD [Primary Care Provider] - If Needed - Billing Disposition and Condition Condition: STABLE Disposition: Home - Attestation Statements Provider Attestation: Per institutional requirements, I have reviewed the chart, however, I was not consulted specifically or made aware of this patient by the midlevel provider. I did not personally evaluate, interact with , or disposition this patient.
== END 2019-06-16 17:55 | disposition home or self-care (01) ==
LOC: UCEAST 15:51
DX: S80.02XA Contusion of left knee, initial encounter (principal); S80.12XA Contusion of left lower leg, initial encounter; W19.XXXA Unspecified fall, initial encounter; Y92.9 Unspecified place or not applicable; E78.5 Hyperlipidemia, unspecified; I10 Essential (primary) hypertension; Z79.01 Long term (current) use of anticoagulants; Z87.891 Personal history of nicotine dependence
CPT/HCPCS: 99212; G0463

== ENCOUNTER → 2019-06-26 09:37 | Emergency (ER) | payer MEDICARE, OTHER ==
[~2019-06-26 09:37] MED LIST changes: -Buffered Lidocaine 0.9% SYRIN* 5 ML/SYR SYRINGE INTRADERM ONE; +Carvedilol TAB* 6.25 MG PO ONE; -Dexamethasone TAB* 6 MG PO ONE; -DiMENhydriNATE IV* 50 MG/ML VIAL IV PUSH PRN; -Famotidine IV* 10 MG/ML 2 ML (20 mg) IV ONE; +Furosemide IV* 10 MG/ML VIAL (40 MG) IV ONE; -Morphine INJ* 2 MG/ML 1 ML CARPUJECT IV PRN; -Naloxone* 0.4 MG/ML 1 ML VIAL IV PRN; -Ondansetron INJ* 2 MG/ML VIAL ONE; -PROCHLORPERAZINE INJ 5 MG/ML 2 ML VIAL IV PRN; -fentaNYL* 50 MCG/ML 2 ML VIAL (100 MCG VIAL) IV PRN; -oxyCODONE/Acetamin 5/325 MG* TAB PO PRN
[2019-06-26 10:19] LABS: ABS Basophils 0.1 10^3/ul (0-0.2); ABS Eosinophils 0.1 10^3/ul (0-0.6); ABS Lymphocytes 1.1 10^3/ul (1.0-4.8); ABS Neutrophils 10.2 10^3/ul (1.5-7.7); Eosinophil % 1.1 %; Hematocrit 38 % (35-47); Hemoglobin 12.4 g/dL (12.0-16.0); Lymphocyte % 8.5 %; Mean Corpuscular HGB Conc 33 g/dL (31-36); Mean Corpuscular Hemoglobin 31 pg (27-31); Mean Corpuscular Volume 94 fL (80-97); Mean Platelet Volume 9.4 fL (7.4-10.4); Platelet Count 150 10^3/uL (150-450); Red Blood Count 4.02 10^6 /uL (3.70-4.87); Red Cell Distribution Width 18 % (10-15); White Blood Count 12.4 10^3/uL (3.5-10.8)
[2019-06-26 10:43] LABS: Albumin 3.5 g/dL (3.2-5.2); Albumin/Globulin Ratio 1.3 (1-3); BUN/Creatinine Ratio 18.9 (8-20); Calcium 9.3 mg/dL (8.6-10.3); EGFR African American 40.9 (>60); EGFR Non-African American 33.8 (>60); Globulin 2.6 g/dL (2-4); Magnesium 1.9 mg/dL (1.9-2.7); Total Protein 6.1 g/dL (6.4-8.9)
[2019-06-26 10:48] LABS: Troponin I 0.07 ng/mL (<0.04)
--- NOTE | 2019-06-26 11:29 | ED ---
Palpitations / Dysrhythmia - HPI Summary HPI Summary: This patient is a 83 year old F presenting to [facility] with a chief complaint of an unresolved rapid heart rate since 0700 today. Pt states she was sleeping when her heart rate increased rapidly. She notes she woke up due to this increased rate today and says this never happened before. Pt says the increased heart rate lasts for about 30 minutes. She is on 3L of oxygen at home. She has hx of heart failure, but does not take medication for it. Pt also has hx of [place] and is not on any blood thinners. The patient rates the pain 0/10 in severity. Symptoms aggravated by nothing. Symptoms alleviated by nothing. Patient reports large ecchymosis on her left samuel. Patient denies cough, thyroid issues, lower extremity edema, difficulty breathing. - History of Current Complaint Chief Complaint: EDDysrhythmPalp Time Seen by Provider: 06/26/19 09:51 Hx Obtained From: Patient Onset/Duration: Sudden Onset, Lasting Hours - began 3 hours ago, lasts for 30 minutes, Still Present Severity Initially: Moderate Severity Currently: Moderate Character: Fast Aggravating: Nothing Alleviating: Nothing Associated Signs & Symptoms: Negative - Allergy/Home Medications Allergies/Adverse Reactions: Allergies Allergy/AdvReac Type Severity Reaction Status Date / Time nut - unspecified Allergy Severe Hives/Diff. Verified 06/16/19 16:12 Breathing/I tching monosodium glutamate AdvReac Mild headache, Verified 06/16/19 16:12 jitters cephalexin AdvReac GI Upset Verified 06/16/19 16:12 ibuprofen AdvReac Nausea Verified 06/16/19 16:12 CHESTNUTS Allergy Severe LIPS SWELL Uncoded 06/16/19 16:12 AND ARE VERY PAINFUL METALS Allergy Unknown Rash Uncoded 06/16/19 16:12 SEASONAL Allergy STUFFY Uncoded 06/16/19 16:12 HAYFEVER/ENVIRONMENTAL NOSE, WATERY EYES PMH/Surg Hx/FS Hx/Imm Hx Previously Healthy: No Endocrine/Hematology History: Reports: Hx Anticoagulant Therapy, Hx Anemia - RECIEVED IRON INFUSIONS IN PAST Denies: Hx Diabetes, Hx Thyroid Disease Cardiovascular History: Reports: Hx Angina - RARELY USES NITRO, Hx Cardiomegaly , Hx Congestive Heart Failure, Hx Coronary Artery Disease - ON MED, Hx Hypercholesterolemia, Hx Hypotension - current, Hx Hypertension, Hx Myocardial Infarction - 2015, Hx Peripheral Vascular Disease, 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 left carotid artery 2013 right carot Denies: Hx Deep Vein Thrombosis, Hx Pacemaker/ICD Respiratory History: Reports: Hx Asthma - POSSIBLY IN THE PAST, Hx Pneumonia Denies: Hx Chronic Obstructive Pulmonary Disease (COPD), Hx Lung Cancer GI History: Reports: Other GI Disorders - CHRONIC CONSTIPATION-TAKES LAXATIVE DAILY peg tube 03/12/18 Denies: Hx Gall Bladder Disease, Hx Gastroesophageal Reflux Disease, Hx Gastrointestinal Bleed, Hx Ulcer, Hx Urosepsis History: Reports: Hx Chronic Renal Failure Denies: Hx Kidney Stones, Hx Renal Disease, Other Problems/Disorders Musculoskeletal History: Reports: Hx Arthritis - HANDS & FEET, Hx Fibromyalgia, Hx Osteoporosis Denies: Hx Rheumatoid Arthritis Sensory History: Reports: Hx Cataracts - BILAT, Hx Contacts or Glasses Denies: Hx Hearing Aid Opthamlomology History: Reports: Hx Cataracts - BILAT, Hx Contacts or Glasses Neurological History: Reports: Hx Dementia, Hx Headaches - TAKES TRAMADOL PRN, Hx Migraine - last episode 1 yr ago 2016, Hx Nerve Disease - see below, Other Neuro Impairments/Disorders - 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 type. Hx Chemotherapy: No Hx Radiation Therapy: No - Surgical History Surgical History: Yes Surgery Procedure, Year, and Place: Hysterectomy, 1983, [facility] [place]. Choleycystectomy, 1993, [facility] [place]. nose surgery .DR CHIN. B[place].Femoral bypass, 1996, [facility] [place]. Left carotid endardectomy 2013. Right first toe, first joint replacement, 2005, [facility] [place]. LIGATION OF ETHMOIDAL INTERNAL MAXILIARY ARTERIES 2007. MYLEOGRAM. LASER SURGERY FOR EPISTAXIS X 6 OVER PAST 10 YEARS. RIGHT CAROTID ENDARECTOMY 03/01/18 [facility]. PEG TUBE INSERTION 03/12/18 [facility]. NASAL EPISTAXIS [facility] [place] DR. CHIN Hx Anesthesia Reactions: No - Immunization History Date of Tetanus Vaccine: up to date Date of Influenza Vaccine: up to date Infectious Disease History: No Infectious Disease History: Denies: Hx Clostridium Difficile, Hx Hepatitis, Hx Human Immunodeficiency Virus (HIV), Hx of Known/Suspected MRSA, Hx Shingles, Hx Tuberculosis, Hx Known/ Suspected VRE, Hx Known/Suspected VRSA, History Other Infectious Disease, Traveled Outside the [place] in Last 30 Days - Family History Known Family History: Positive: Hypertension Negative: Cardiac Disease - Social History Alcohol Use: None Alcohol Amount: a glass of wine a few times a week Hx Substance Use: No Substance Use Type: Reports: None Hx Tobacco Use: Yes Smoking Status (MU): Former Smoker Type: Cigarettes Amount Used/How Often: 1 PPD Length of Time of Smoking/Using Tobacco: 47 YEARS Have You Smoked in the Last Year: No Review of Systems ENT: Other - negative - thyroid issues Positive: Palpitations - rapid heart rate since 0700 today Respiratory: Other - negative - difficulty breathing Negative: Cough Musculoskeletal: Other - positive - large ecchymosis on her left samuel Positive: Edema - negative - lower extremity edema All Other Systems Reviewed And Are Negative: Yes Physical Exam - Summary Physical Exam Summary: Constitutional: Elderly female. Well-developed, Well-nourished, Alert. (-) Distressed Skin: Warm, Dry HENT: Normocephalic; Atraumatic Eyes: Conjunctiva normal Neck: Musculoskeletal ROM normal neck. (+) JVD, (-) Stridor, (-) Nuchal rigidity Cardio: Rhythm regular, rate normal, Heart sounds normal; Intact distal pulses; Radial pulses are 2+ and symmetric. (-) Murmur Pulmonary/Chest wall: Mild inc WOB, bilateral crackles bases (-) Respiratory distress, (-) Wheezes, (-) Rales Abd: Soft, (-) tenderness, (-) Distension, (-) Guarding, (-) Rebound Musculoskeletal: (-) Edema. Large 10 cm ecchymosis on left samuel, but no left samuel tenderness Lymph: (-) Cervical adenopathy Neuro: Alert, Oriented x3 Psych: Mood and affect Normal Triage Information Reviewed: Yes Vital Signs On Initial Exam: Initial Vitals Temp Pulse Resp BP Pulse Ox 97.6 F 83 18 173/111 96 06/26/19 09:54 06/26/19 09:54 06/26/19 09:54 06/26/19 09:54 06/26/19 09:54 Vital Signs Reviewed: Yes Diagnostics - Vital Signs Vital Signs Temp Pulse Resp BP Pulse Ox 06/26/19 09:54 97.6 F 83 18 173/111 96 - Laboratory Lab Results: Lab Results 06/26/19 06/26/19 06/26/19 Range/Units 10:09 10:09 10:09 WBC 12.4 H (3.5-10.8) 10^3/uL RBC 4.02 (3.70-4.87) 10^6 /uL Hgb 12.4 (12.0-16.0) g/dL Hct 38 (35-47) % MCV 94 (80-97) fL MCH 31 (27-31) pg MCHC 33 (31-36) g/dL RDW 18 H (10-15) % Plt Count 150 (150-450) 10^3/uL MPV 9.4 (7.4-10.4) fL Neut % (Auto) 82.1 % Lymph % (Auto) 8.5 % [place] % (Auto) 7.7 % Eos % (Auto) 1.1 % Baso % (Auto) 0.6 % Absolute Neuts (auto) 10.2 H (1.5-7.7) 10^3/ul Absolute Lymphs (auto) 1.1 (1.0-4.8) 10^3/ul Absolute Monos (auto) 1.0 H (0-0.8) 10^3/ul Absolute Eos (auto) 0.1 (0-0.6) 10^3/ul Absolute Basos (auto) 0.1 (0-0.2) 10^3/ul Absolute Nucleated RBC 0.0 10^3/ul Nucleated RBC % 0.0 Sodium 142 (135-145) mmol/L Potassium 4.0 (3.5-5.0) mmol/L Chloride 104 (101-111) mmol/L Carbon Dioxide 32 (22-32) mmol/L Anion Gap 6 (2-11) mmol/L BUN 28 H (6-24) mg/dL Creatinine 1.48 H (0.51-0.95) mg/dL Est GFR ( Amer) 40.9 (>60) Est GFR (Non-Af Amer) 33.8 (>60) BUN/Creatinine Ratio 18.9 (8-20) Glucose 99 (70-100) mg/dL Calcium 9.3 (8.6-10.3) mg/dL Magnesium 1.9 (1.9-2.7) mg/dL Total Bilirubin 1.00 (0.2-1.0) mg/dL AST 21 (13-39) U/L ALT 10 (7-52) U/L Alkaline Phosphatase 49 (34-104) U/L Troponin I 0.07 H* (<0.04) ng/mL B-Natriuretic Peptide > 1300 H (<=100) pg/mL Total Protein 6.1 L (6.4-8.9) g/dL Albumin 3.5 (3.2-5.2) g/dL Globulin 2.6 (2-4) g/dL Albumin/Globulin Ratio 1.3 (1-3) TSH Pending Result Diagrams: 06/26/19 10:09 06/26/19 10:09 Lab Statement: Any lab studies that have been ordered have been reviewed, and results considered in the medical decision making process. - Radiology CXR Radiology Interpretation Completed By: Radiologist Summary of Radiographic Findings: IMPRESSION: SMALL LEFT PLEURAL EFFUSION WITH LEFT BASILAR ATELECTASIS VERSUS CONSOLIDATION. These findings were reviewed by Dr. Frost. - EKG 1014 Cardiac Rate: NL - 73 BPM EKG Rhythm: Sinus Rhythm EKG Comparison: No Significant Change - No new change compared to prior EKG on Summary of EKG Findings: sinus rhythm, 73 BPM, no new change compared to prior EKG on 04/30/19 Re-Evaluation - Re-Evaluation First Eval Change: Improved - Trop 0.07, consistent with prior. Will give 40 of IV Lasix and recheck troponin. Second Eval Change: Improved Comment: Patients concerned over BP, will give home BP med. Third Eval Comment: Repeat troponin 0.08, troponin stable. Discussed with return precautions and that they can follow up with her primary care doctor regarding her hypertensive meds. agreeable. Course/Dx - Course Course Of Treatment: 83 y/o F -year-old female with a history of heart failure ( EF 45%) b presents with palpitations at 7:30 this morning for 30 minutes. - Check electrolytes including magnesium. Will check a BNP. Easy work of breathing on 3 liters which is her baseline. No chest pain at this time, check one troponin. - Diagnoses Provider Diagnoses: HTN (hypertension), Heart failure, Palpitations Discharge - Sign-Out/Discharge Documenting (check all that apply): Patient Departure - discharge Patient Received Moderate/Deep Sedation with Procedure: No - Discharge Plan Condition: Stable Disposition: HOME Patient Education Materials: Heart Failure (ED), Heart Palpitations (ED), Chronic Hypertension (ED) Referrals: Grecia Anderson MD [Primary Care Provider] - 2 Days Additional Instructions: You were seen in the emergency department for palpitations and high blood pressure. Your labs showed that her kidney function is at baseline, and your heart enzyme was stable 2. Please continue taking your home medications, and follow up with your primary care doctor regarding adjusting the medications for high blood pressure. Please follow up with your primary care doctor in next 2-3 days and return to emergency department for chest pain, trouble breathing, worsening or concerning symptoms. - Billing Disposition and Condition Condition: STABLE Disposition: Home - Attestation Statements Document Initiated by Scribe: Yes Documenting Scribe: Tristan Saul Provider For Whom Aftab is Documenting (Include Credential): Dr. Adilson Frost MD Scribe Attestation: I, Tristan Saul, scribed for Dr. Adilson Frost MD on 06/26/19 at 2154. Scribe Documentation Reviewed: Yes Provider Attestation: The documentation as recorded by the Tristan hall accurately reflects the service I personally performed and the decisions made by me, Dr. Adilson Frost MD Status of Scribe Document: Viewed
[2019-06-26 11:52] LABS: TSH (Thyroid Stimulating Horm) 3.69 mcIU/mL (0.34-5.60)
[2019-06-26 14:01] LABS: Troponin I 0.08 ng/mL (<0.04)
[2019-06-26 14:53] VITALS: BP 181/95
== END | disposition home or self-care (01) ==
LOC: ED 09:37
DX: I50.9 Heart failure, unspecified (principal); I11.0 Hypertensive heart disease with heart failure; R00.2 Palpitations; D64.9 Anemia, unspecified; Z88.1 Allergy status to other antibiotic agents; Z88.8 Allergy status to other drugs, medicaments and biological substances; I25.119 Atherosclerotic heart disease of native coronary artery with unspecified angina pectoris; E78.00 Pure hypercholesterolemia, unspecified; Z79.899 Other long term (current) drug therapy; J90 Pleural effusion, not elsewhere classified; Z99.81 Dependence on supplemental oxygen; Z87.891 Personal history of nicotine dependence
CPT/HCPCS: 36415; 71045; 80053; 83735; 83880; 84443; 84484; 85025; 93005; 96374; 99284; A9270-GY; J1940

== ENCOUNTER 2019-09-02 14:52 | Emergency (ER) | payer MEDICARE, OTHER ==
[2019-09-02] MEDS ORDERED: Acetaminophen TAB* 325 MG PO ONE (15:32)
--- NOTE | 2019-09-02 15:38 | ED ---
Back Pain - HPI Summary HPI Summary: Patient is an 84-year-old female who presents emergency department for evaluation of back pain and right-sided rib pain after mechanical fall that occurred just prior to arrival. Patient lives at home with her . She states she reached out to balance herself on a chair but the chair wobbled causing her to fall. She denies head injury or loss of consciousness. Patient complains of right-sided rib pain and low back pain. She denies lightheadedness , dizziness, chest pain, shortness of breath, numbness, tingling or weakness. Symptoms are mild in severity. Movement makes symptoms worse. Rest makes symptoms better. Is not anticoagulated. - History of Current Complaint Chief Complaint: EDFall Stated Complaint: FALL W/GENERALIZED PAIN PER EMS Time Seen by Provider: 09/02/19 15:14 Hx Last Menstrual Period: years ago. Pain Intensity: 4 - Allergies/Home Medications Allergies/Adverse Reactions: Allergies Allergy/AdvReac Type Severity Reaction Status Date / Time nut - unspecified Allergy Severe Hives/Diff. Verified 09/02/19 15:31 Breathing/I tching monosodium glutamate AdvReac Mild headache, Verified 09/02/19 15:31 jitters cephalexin AdvReac GI Upset Verified 09/02/19 15:31 ibuprofen AdvReac Nausea Verified 09/02/19 15:31 CHESTNUTS Allergy Severe LIPS SWELL Uncoded 06/16/19 16:12 AND ARE VERY PAINFUL METALS Allergy Unknown Rash Uncoded 06/16/19 16:12 SEASONAL Allergy STUFFY Uncoded 06/16/19 16:12 HAYFEVER/ENVIRONMENTAL NOSE, WATERY EYES Home Medications: Home Medications Magnesium Oxide TAB* [MagOx 400 TAB*] 400 mg PO DAILY 09/02/19 [History Confirmed 09/02/19] Melatonin 5 mg PO BEDTIME 09/02/19 [History Confirmed 09/02/19] traMADol TAB* [Ultram*] 25 mg PO BID PRN 09/02/19 [History Confirmed 09/02/19] PMH/Surg Hx/FS Hx/Imm Hx Previously Healthy: Yes Endocrine/Hematology History: Reports: Hx Anticoagulant Therapy, Hx Anemia - RECIEVED IRON INFUSIONS IN PAST Denies: Hx Diabetes, Hx Thyroid Disease Cardiovascular History: Reports: Hx Angina - RARELY USES NITRO, Hx Cardiomegaly , Hx Congestive Heart Failure, Hx Coronary Artery Disease - ON MED, Hx Hypercholesterolemia, Hx Hypotension - current, Hx Hypertension, Hx Myocardial Infarction - 2015, Hx Peripheral Vascular Disease, 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 godwin left carotid artery 2013 right carot Denies: Hx Deep Vein Thrombosis, Hx Pacemaker/ICD Respiratory History: Reports: Hx Asthma - POSSIBLY IN THE PAST, Hx Pneumonia Denies: Hx Chronic Obstructive Pulmonary Disease (COPD), Hx Lung Cancer GI History: Reports: Other GI Disorders - CHRONIC CONSTIPATION-TAKES LAXATIVE DAILY peg tube 03/12/18 Denies: Hx Gall Bladder Disease, Hx Gastroesophageal Reflux Disease, Hx Gastrointestinal Bleed, Hx Ulcer, Hx Urosepsis History: Reports: Hx Chronic Renal Failure Denies: Hx Kidney Stones, Hx Renal Disease, Other Problems/Disorders Musculoskeletal History: Reports: Hx Arthritis - HANDS & FEET, Hx Fibromyalgia, Hx Osteoporosis Denies: Hx Rheumatoid Arthritis Sensory History: Reports: Hx Cataracts - BILAT, Hx Contacts or Glasses Denies: Hx Hearing Aid Opthamlomology History: Reports: Hx Cataracts - BILAT, Hx Contacts or Glasses Neurological History: Reports: Hx Dementia, Hx Headaches - TAKES TRAMADOL PRN, Hx Migraine - last episode 1 yr ago 2016, Hx Nerve Disease - see below, Other Neuro Impairments/Disorders - 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 type. Hx Chemotherapy: No Hx Radiation Therapy: No - Surgical History Surgery Procedure, Year, and Place: Hysterectomy, 1983, [facility] [place]. Ch[place]cystectomy, 1993, [facility] [place]. nose surgery .DR CHIN. BILAT.Femoral bypass, 1996, [facility] [place]. Left carotid endardectomy 2013. Right first toe, first joint replacement, 2005, [facility] [place]. LIGATION OF ETHMOIDAL INTERNAL MAXILIARY ARTERIES 2007. MYLEOGRAM. LASER SURGERY FOR EPISTAXIS X 6 OVER PAST 10 YEARS. RIGHT CAROTID ENDARECTOMY 03/01/18 [facility]. PEG TUBE INSERTION 03/12/18 [facility]. NASAL EPISTAXIS [facility] [place] DR[address] CHIN Hx Anesthesia Reactions: No - Immunization History Date of Tetanus Vaccine: up to date Date of Influenza Vaccine: up to date Infectious Disease History: No Infectious Disease History: Denies: Hx Clostridium Difficile, Hx Hepatitis, Hx Human Immunodeficiency Virus (HIV), Hx of Known/Suspected MRSA, Hx Shingles, Hx Tuberculosis, Hx Known/ Suspected VRE, Hx Known/Suspected VRSA, History Other Infectious Disease, Traveled Outside the [place] in Last 30 Days - Family History Known Family History: Positive: Hypertension, Non-Contributory Negative: Cardiac Disease - Social History Occupation: Retired Lives: With Family Alcohol Amount: a glass of wine a few times a week Hx Substance Use: No Substance Use Type: Reports: None Hx Tobacco Use: Yes Smoking Status (MU): Former Smoker Type: Cigarettes Amount Used/How Often: 1 PPD Length of Time of Smoking/Using Tobacco: 47 YEARS Have You Smoked in the Last Year: No Review of Systems Cardiovascular: Negative Respiratory: Negative Gastrointestinal: Negative Positive: Other - right sided rib pain. low back pain. Positive: Bruising Neurological: Negative All Other Systems Reviewed And Are Negative: Yes Physical Exam Triage Information Reviewed: Yes Vital Signs On Initial Exam: Initial Vitals Temp Pulse Resp BP Pulse Ox 98.4 F 86 16 132/76 98 09/02/19 15:05 09/02/19 15:05 09/02/19 15:05 09/02/19 15:05 09/02/19 15:05 Vital Signs Reviewed: Yes Appearance: Positive: Well-Appearing - Pt. sitting in chair in NAD. Skin: Positive: Warm, Dry Head/Face: Positive: Normal Head/Face Inspection Eyes: Positive: Normal, EOMI, ANDIE Neck: Positive: Supple, Nontender Respiratory/Lung Sounds: Positive: Clear to Auscultation, Breath Sounds Present Cardiovascular: Positive: Normal, RRR Musculoskeletal: Positive: Other - 5/5 strength in bilateral LEs and UEs. Abrasion to right low back. Pain to right posterior rib cage. Neurological: Positive: Normal, CN Intact II-III Psychiatric: Positive: Affect/Mood Appropriate Procedures - Sedation Patient Received Moderate/Deep Sedation with Procedure: No Diagnostics - Vital Signs Vital Signs Temp Pulse Resp BP Pulse Ox 09/02/19 15:20 97.9 F 68 12 100/62 98 09/02/19 15:05 98.4 F 86 16 132/76 98 - Laboratory Lab Statement: Any lab studies that have been ordered have been reviewed, and results considered in the medical decision making process. Back Pain Course/Dx - Course Course Of Treatment: Patient presenting with back and rib pain after mechanical fall. She chronically wears oxygen at home and has had no increase in demand in the ER. Patient given a dose of Tylenol for pain. X-rays of back are negative for acute findings. X-ray of chest and ribs show a posterior 10th rib facture, reading per radiology. Results were discussed with patient and . Respiratory reviewed incentive spirometry and advised patient to use 10 times every hour awake. Patient current takes half a 50 mg tablet of tramadol twice a day as well as Tylenol twice a yesterday. Advised patient she can increased tramadol to half a tablet or one whole tablet every 6 hours for pain as needed. Can take Tylenol 500 mg 1-2 tablets every 6 hours as needed for pain. Patient to follow-up with PCP within one week. To return to the ER for fever, increased shortness of breath, new symptoms or if concerned. Patient and understand and agree with plan. - Diagnoses Differential Diagnosis/HQI/PQRI: Positive: Arthritis, Fracture, Herniated Disc, Strain, Sprain Provider Diagnoses: Rib fracture Discharge ED - Sign-Out/Discharge Documenting (check all that apply): Patient Departure - Discharge Plan Condition: Good Disposition: HOME Patient Education Materials: How to Use an Incentive Spirometer (ED), Rib Fracture (ED) Referrals: Iliana Dye MD [Primary Care Provider] - Additional Instructions: Schedule a follow up appointment with PCP for recheck within one week Use incentive spirometer 10 times every hour you are awake Can take half a tablet or one whole tablet of tramadol every 6 hours as needed for pain Can take Tylenol 500mg 1-2 tablets every 6 hours as needed for pain Ice back intermittently Return to ER for difficulty breathing, chest pain, fever, or if concerned - Billing Disposition and Condition Condition: GOOD Disposition: Home
[2019-09-02 17:24] VITALS: BP 120/86
== END 2019-09-02 17:00 | disposition home or self-care (01) ==
LOC: ED 14:52
DX: S22.31XA Fracture of one rib, right side, initial encounter for closed fracture (principal); W19.XXXA Unspecified fall, initial encounter; Y92.9 Unspecified place or not applicable; M51.36 Other intervertebral disc degeneration, lumbar region; D64.9 Anemia, unspecified; I11.0 Hypertensive heart disease with heart failure; I50.9 Heart failure, unspecified; I25.10 Atherosclerotic heart disease of native coronary artery without angina pectoris; E78.00 Pure hypercholesterolemia, unspecified; I25.2 Old myocardial infarction; F03.90 Unspecified dementia, unspecified severity, without behavioral disturbance, psychotic disturbance, mood disturbance, and anxiety; F41.9 Anxiety disorder, unspecified; F32.9 Major depressive disorder, single episode, unspecified; Z90.710 Acquired absence of both cervix and uterus; Z90.49 Acquired absence of other specified parts of digestive tract; Z87.891 Personal history of nicotine dependence; Z79.899 Other long term (current) drug therapy; Z88.6 Allergy status to analgesic agent; Z88.1 Allergy status to other antibiotic agents
CPT/HCPCS: 72070; 72110; 99283; A9270-GY

== ENCOUNTER 2019-09-05 11:15 | Inpatient (IN) | payer MEDICARE, OTHER ==
[2019-09-05 14:44] LABS: ABS Eosinophils 0.2 10^3/ul (0-0.6); ABS Lymphocytes 0.8 10^3/ul (1.0-4.8); ABS Monocytes 0.9 10^3/ul (0-0.8); ABS Neutrophils 11.7 10^3/ul (1.5-7.7); Eosinophil % 1.4 %; Hematocrit 38 % (35-47); Hemoglobin 12.3 g/dL (12.0-16.0); Lymphocyte % 5.8 %; Mean Corpuscular HGB Conc 32 g/dL (31-36); Mean Corpuscular Hemoglobin 31 pg (27-31); Mean Corpuscular Volume 94 fL (80-97); Mean Platelet Volume 9.7 fL (7.4-10.4); Platelet Count 209 10^3/uL (150-450); Red Blood Count 4.03 10^6 /uL (3.70-4.87); Red Cell Distribution Width 15 % (10-15); White Blood Count 13.6 10^3/uL (3.5-10.8)
[2019-09-05 15:04] LABS: Albumin 3.7 g/dL (3.2-5.2); Albumin/Globulin Ratio 1.2 (1-3); BUN/Creatinine Ratio 17.1 (8-20); C Reactive Protein 39.94 mg/L (<8.01); Calcium 9.4 mg/dL (8.6-10.3); EGFR African American 37.8 (>60); EGFR Non-African American 31.2 (>60); Globulin 3.1 g/dL (2-4); Total Bilirubin 1.5 mg/dL (0.2-1.0); Total Protein 6.8 g/dL (6.4-8.9)
[2019-09-05] MEDS ORDERED: clonazePAM TAB(*) 1 MG PO PRN (16:31)
--- NOTE | 2019-09-05 16:39 | ED ---
Adult Trauma - HPI Summary HPI Summary: This patient is an 84-year-old female with history of more frequent falls who presents to the ED with . Patient is endorsing pain to the left forearm , left hip, left ribs. She was seen in the ED 2 days ago after a fall to her right side, injuring and fracturing her right rib. Patient has a history of dementia. She has had 2 falls in the past week, and has been falling more frequently. Patient denies any chest pain or shortness of breath. She denies any fevers, sweats, chills. She endorses bilateral rib pain with taking deep breaths, however denies any pain otherwise. She states she does have left lower extremity pain and hip pain, however this is usually at her baseline. Due to her multiple falls, has asked for admission to the hospital with possible placement of care for rehabilitation. - History of Current Complaint Chief Complaint: EDFall Stated Complaint: FALL PER EMS Time Seen by Provider: 09/05/19 11:21 Hx Obtained From: Patient Hx Last Menstrual Period: years ago. ?: No Ambulatory at the Scene: No Loss of Consciousness: no loss of consciousness Onset Severity: Mild Current Severity: None Pain Intensity: 8 Pain Scale Used: 0-10 Numeric Location: Other - left rib Character: Aching Aggravating Factor(s): Nothing Alleviating Factor(s): Nothing Associated Signs & Symptoms: Positive: Negative - Additional Pertinent History Primary Care Physician: MELQUIADES - Allergy/Home Medications Allergies/Adverse Reactions: Allergies Allergy/AdvReac Type Severity Reaction Status Date / Time nut - unspecified Allergy Severe Hives/Diff. Verified 09/02/19 15:31 Breathing/I tching monosodium glutamate AdvReac Mild headache, Verified 09/02/19 15:31 jitters cephalexin AdvReac GI Upset Verified 09/02/19 15:31 ibuprofen AdvReac Nausea Verified 09/02/19 15:31 CHESTNUTS Allergy Severe LIPS SWELL Uncoded 06/16/19 16:12 AND ARE VERY PAINFUL METALS Allergy Unknown Rash Uncoded 06/16/19 16:12 SEASONAL Allergy STUFFY Uncoded 06/16/19 16:12 HAYFEVER/ENVIRONMENTAL NOSE, WATERY EYES Home Medications: Home Medications Furosemide TAB* [Lasix TAB*] 20 mg PO EVERY OTHER DAY 09/05/19 [History Confirmed 09/05/19] Gabapentin CAP(*) [Neurontin 300 CAP(*)] 600 mg PO BEDTIME 09/05/19 [History Confirmed 09/05/19] Lidocaine PATCH 5%* [Lidoderm 5% Patch*] 1 patch TRANSDERM DAILY 09/05/19 [ History Confirmed 09/05/19] PMH/Surg Hx/FS Hx/Imm Hx Previously Healthy: No Endocrine/Hematology History: Reports: Hx Anticoagulant Therapy, Hx Anemia - RECIEVED IRON INFUSIONS IN PAST Denies: Hx Diabetes, Hx Thyroid Disease Cardiovascular History: Reports: Hx Angina - RARELY USES NITRO, Hx Cardiomegaly , Hx Congestive Heart Failure, Hx Coronary Artery Disease - ON MED, Hx Hypercholesterolemia, Hx Hypotension - current, Hx Hypertension, Hx Myocardial Infarction - 2014, Hx Peripheral Vascular Disease, 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 godwin left carotid artery 2013 right carot Denies: Hx Deep Vein Thrombosis, Hx Pacemaker/ICD Respiratory History: Reports: Hx Asthma - POSSIBLY IN THE PAST, Hx Pneumonia Denies: Hx Chronic Obstructive Pulmonary Disease (COPD), Hx Lung Cancer GI History: Reports: Other GI Disorders - CHRONIC CONSTIPATION-TAKES LAXATIVE DAILY peg tube 03/12/18 Denies: Hx Gall Bladder Disease, Hx Gastroesophageal Reflux Disease, Hx Gastrointestinal Bleed, Hx Ulcer, Hx Urosepsis History: Reports: Hx Chronic Renal Failure Denies: Hx Kidney Stones, Hx Renal Disease, Other Problems/Disorders Musculoskeletal History: Reports: Hx Arthritis - HANDS & FEET, Hx Fibromyalgia, Hx Osteoporosis Denies: Hx Rheumatoid Arthritis Sensory History: Reports: Hx Cataracts - BILAT, Hx Contacts or Glasses Denies: Hx Hearing Aid Opthamlomology History: Reports: Hx Cataracts - BILAT, Hx Contacts or Glasses Neurological History: Reports: Hx Dementia, Hx Headaches - TAKES TRAMADOL PRN, Hx Migraine - last episode 1 yr ago 2017, Hx Nerve Disease - see below, Other Neuro Impairments/Disorders - 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 type. Hx Chemotherapy: No Hx Radiation Therapy: No - Surgical History Surgery Procedure, Year, and Place: Hysterectomy, 1984, [facility] [place]. Choleycystectomy, 1993, [facility] [place]. nose surgery .DR CHIN. [place].Femoral bypass, 1996, [facility] [place]. Left carotid endardectomy 2013. Right first toe, first joint replacement, 2005, [facility] [place]. LIGATION OF ETHMOIDAL INTERNAL MAXILIARY ARTERIES 2007. MYLEOGRAM. LASER SURGERY FOR EPISTAXIS X 6 OVER PAST 10 YEARS. RIGHT CAROTID ENDARECTOMY 03/01/18 [facility]. PEG TUBE INSERTION 03/12/18 [facility]. NASAL EPISTAXIS [facility] [place] DR. CHIN Hx Anesthesia Reactions: No - Immunization History Date of Tetanus Vaccine: up to date Date of Influenza Vaccine: up to date Hx Pertussis Vaccination: No Immunizations Up to Date: Yes Infectious Disease History: No Infectious Disease History: Denies: Hx Clostridium Difficile, Hx Hepatitis, Hx Human Immunodeficiency Virus (HIV), Hx of Known/Suspected MRSA, Hx Shingles, Hx Tuberculosis, Hx Known/ Suspected VRE, Hx Known/Suspected VRSA, History Other Infectious Disease, Traveled Outside the in Last 30 Days - Family History Known Family History: Positive: Hypertension, Non-Contributory Negative: Cardiac Disease - Social History Occupation: Unemployed Lives: With Family Alcohol Use: None Alcohol Amount: a glass of wine a few times a week Hx Substance Use: No Substance Use Type: Reports: None Hx Tobacco Use: Yes Smoking Status (MU): Former Smoker Type: Cigarettes Amount Used/How Often: 1 PPD Length of Time of Smoking/Using Tobacco: 47 YEARS Have You Smoked in the Last Year: No Review of Systems Negative: Fever, Chills, Fatigue, Skin Diaphoresis Negative: Palpitations, Chest Pain Negative: Shortness Of Breath, Cough Genitourinary: Negative Positive: no symptoms reported, see HPI Positive: Arthralgia - bilateral rib pain Skin: Negative Neurological: Negative All Other Systems Reviewed And Are Negative: Yes Physical Exam Triage Information Reviewed: Yes Vital Signs On Initial Exam: Initial Vitals Pulse 98 09/05/19 11:17 Vital Signs Reviewed: Yes Appearance: Positive: Well-Appearing, Well-Nourished Skin: Positive: Warm, Skin Color Reflects Adequate Perfusion Head/Face: Positive: Normal Head/Face Inspection Eyes: Positive: EOMI, Conjunctiva Clear Neck: Positive: Supple Respiratory/Lung Sounds: Positive: Clear to Auscultation Musculoskeletal: Positive: Pain @ - right rib pain, R hip pain Neurological: Positive: Speech Normal Psychiatric: Positive: Affect/Mood Appropriate Diagnostics - Vital Signs Vital Signs Temp Pulse Resp BP Pulse Ox 09/05/19 16:18 96 111/76 92 09/05/19 15:48 95 112/72 92 09/05/19 15:19 92 110/76 92 09/05/19 15:00 92 92 09/05/19 14:19 93 112/71 90 09/05/19 14:00 93 89 09/05/19 13:48 94 186/94 87 09/05/19 13:38 97 85 09/05/19 12:51 194/100 09/05/19 12:18 94 194/76 93 09/05/19 12:00 94 93 09/05/19 11:48 87 173/86 94 09/05/19 11:19 98.5 F 99 16 199/100 86 09/05/19 11:17 98 - Laboratory Lab Results: Lab Results 09/05/19 09/05/19 09/05/19 Range/Units 14:34 14:34 14:34 WBC 13.6 H (3.5-10.8) 10^3/uL RBC 4.03 (3.70-4.87) 10^6 /uL Hgb 12.3 (12.0-16.0) g/dL Hct 38 (35-47) % MCV 94 (80-97) fL MCH 31 (27-31) pg MCHC 32 (31-36) g/dL RDW 15 (10-15) % Plt Count 209 (150-450) 10^3/uL MPV 9.7 (7.4-10.4) fL Neut % (Auto) 86.2 % Lymph % (Auto) 5.8 % Crook % (Auto) 6.4 % Eos % (Auto) 1.4 % Baso % (Auto) 0.2 % Absolute Neuts (auto) 11.7 H (1.5-7.7) 10^3/ul Absolute Lymphs (auto) 0.8 L (1.0-4.8) 10^3/ul Absolute Monos (auto) 0.9 H (0-0.8) 10^3/ul Absolute Eos (auto) 0.2 (0-0.6) 10^3/ul Absolute Basos (auto) 0.0 (0-0.2) 10^3/ul Absolute Nucleated RBC 0.0 10^3/ul Nucleated RBC % 0.0 Sodium 140 (135-145) mmol/L Potassium 4.0 (3.5-5.0) mmol/L Chloride 101 (101-111) mmol/L Carbon Dioxide 32 (22-32) mmol/L Anion Gap 7 (2-11) mmol/L BUN 27 H (6-24) mg/dL Creatinine 1.58 H (0.51-0.95) mg/dL Est GFR ( Amer) 37.8 (>60) Est GFR (Non-Af Amer) 31.2 (>60) BUN/Creatinine Ratio 17.1 (8-20) Glucose 109 H (70-100) mg/dL Lactic Acid 1.0 (0.5-2.0) mmol/L Calcium 9.4 (8.6-10.3) mg/dL Total Bilirubin 1.50 H (0.2-1.0) mg/dL AST 46 H (13-39) U/L ALT 15 (7-52) U/L Alkaline Phosphatase 64 (34-104) U/L C-Reactive Protein 39.94 H (<8.01) mg/L Total Protein 6.8 (6.4-8.9) g/dL Albumin 3.7 (3.2-5.2) g/dL Globulin 3.1 (2-4) g/dL Albumin/Globulin Ratio 1.2 (1-3) Result Diagrams: 09/06/19 09:50 09/05/19 14:34 Lab Statement: Any lab studies that have been ordered have been reviewed, and results considered in the medical decision making process. Adult Trauma Course/Dx - Course Course Of Treatment: This patient is evaluated for 2 falls in the past week. Per , she has been falling more frequently at home. He feels he may be unable to take care of her at this point. Patient denies any shortness of breath, denies any chest pain. X-ray of the right ribs serious obtained (monday ) which shows a right rib fracture. Today's visit, x-ray of the left rib and chest, left femur and hips obtained which show no acute findings. As hospitalist to assess for admission due to multiple falls and possible placement of care. - Diagnoses Differential Diagnosis/HQI/PQRI: Positive: Contusion(s), Sprain, Strain Provider Diagnoses: Rib pain, Hip pain, Multiple falls Discharge ED - Sign-Out/Discharge Documenting (check all that apply): Patient Departure All imaging exams completed and their final reports reviewed: No - Discharge Plan Condition: Fair Disposition: ADMITTED TO [facility] - Billing Disposition and Condition Condition: FAIR Disposition: Admitted to [facility]
[2019-09-05 17:29] LABS: Urine Appearance Clear; Urine Bilirubin Negative (Negative); Urine Blood Negative (Negative); Urine Color Yellow; Urine Glucose Negative (Negative); Urine Ketones Negative (Negative); Urine Nitrite Negative (Negative); Urine Protein Negative (Negative); Urine Specific Gravity 1.012 (1.010-1.030); Urine Urobilinogen Negative (Negative)
[2019-09-05] MEDS: traMADol TAB* 50 MG PO PRN ×2 (18:46→21:01)
--- NOTE | 2019-09-05 19:07 | HP ---
CC: Dr. Dye * HISTORY AND PHYSICAL: DATE OF ADMISSION: 09/05/19 PROVIDER: Tung Ball NP ATTENDING PHYSICIAN WHILE IN THE HOSPITAL: Dr. Ragini See * (dictated by Tung Ball NP). CHIEF COMPLAINT: Falls, right rib pain. HISTORY OF PRESENT ILLNESS: Ms. Gutierrez is an 84-year-old female with a past medical history significant for vascular dementia, polymyalgia rheumatica, history of systolic congestive heart failure, hypertension, hyperlipidemia, osteoarthritis, coronary artery disease and peripheral vascular disease, who presented to the emergency room after a fall at home. Per the patient and her , she has had 2 falls this week. She fell on Monday, at that time she sustained a right rib fracture and last evening the patient fell again. The reports that the patient had placed her walker to the side and was getting ready to get in bed when she fell on her knees and then landed on her stomach. The does report that he had his back turned. The patient reports that she remembers falling. She denies any dizziness prior to the falls. She does report that she feels she lost her balance and then fell. The patient denies any fever, chills, any recent illnesses. Denies any chest pain or edema. She does report lower rib pain with deep breath, coughing and movement. She denies any cough, hemoptysis, or shortness of breath. No nausea , vomiting, diarrhea, or abdominal pain. Denies any hematuria, pain with urination, or burning with urination. She denies any focal weakness or sensory loss, visual complaints, dysphagia. The does report that the patient often does cough with meals and she does have a history of having swallowing difficulty with a swallow eval in the past for which she was placed on soft foods. She denies any changes in her vision, arthralgias, myalgias, rashes, lesions. She does have ecchymotic area noted to her left arm, bilateral lower ribs, left hip area. No psychosis or anxiety. Due to the patient's multiple falls and unable to care for her at home, Hospital Medicine was asked to see and evaluate her for admission. PAST MEDICAL HISTORY: Significant for vascular dementia; polymyalgia rheumatica ; systolic congestive heart failure; hypertension; hyperlipidemia; osteoarthritis; peripheral vascular disease; iron-deficiency anemia; history of coronary artery disease, status post stenting; history of V-tach with cardiac arrest; subclavian steal syndrome; chronic kidney disease, stage 3; possible history of stroke with complications of carotid endarterectomy. PAST SURGICAL HISTORY: 1. Bilateral femoral bypass. 2. Left carotid endarterectomy. 3. Cholecystectomy. 4. Bilateral cataract surgery. 5. Tubal ligation. 6. Hysterectomy. 7. History of blood patch. 8. Cardiac catheterization. HOME MEDICATIONS: 1. Prednisone 5 mg p.o. daily. 2. Escitalopram 10 mg p.o. daily. 3. Pantoprazole 40 mg p.o. b.i.d. 4. Carvedilol 3.125 mg b.i.d. 5. Caltrate 600 mg b.i.d. 6. Amiodarone 50 mg p.o. daily at noon. 7. Magnesium oxide 400 mg daily. 8. Probiotic 1 tablet p.o. daily. 9. Vitamin B12 one tab p.o. daily. 10. Lipitor 40 mg at bedtime. 11. Gabapentin 300 mg at bedtime. 12. Clonazepam 1 mg at bedtime. 13. Tramadol half a tab 25 mg twice daily as needed for pain. 14. Tylenol 650 mg twice daily as needed for pain. 15. Ferrous sulfate 325 mg p.o. daily. 16. Melatonin 5 mg at bedtime. 17. Nitro as needed. 18. Colace 100 mg as needed for constipation. ALLERGIES: Nuts, MONOSODIUM GLUTAMATE, CEPHALEXIN, IBUPROFEN, chestnuts, METALS , seasonal hay fever allergies. FAMILY HISTORY: Father in an accident. Mother of natural causes. Daughter with a history of lung cancer. 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 She is , currently living with her at home. She walks with a walker. Surrogate decision maker in the event she is unable to make her own decisions is her . She is a DNR/DNI. REVIEW OF SYSTEMS: An 11-point review of systems was completed. All pertinent positives were mentioned in the HPI. Otherwise were negative. PHYSICAL EXAMINATION GENERAL: Ms. Gutierrez is an 84-year-old female. She is alert, oriented, resting on the stretcher in the emergency room. She is in no acute distress. VITAL SIGNS: Blood pressure 111/76, heart rate is 96, respirations are 18, O2 saturation 92%, temperature was 98.5. HEENT: Head is atraumatic, normocephalic. Eyes: EOMs are intact. Sclerae anicteric and not pale. Oral mucosa appeared to be moist. NECK: She does have some upper C-spine tenderness. She is able to move her head [id number]. LUNGS: Clear to auscultation bilaterally. No wheezes, rales, or rhonchi. She does have ecchymosis noted to bilateral lower ribs. CARDIAC: S1, S2. Regular rate and rhythm. No murmurs, rubs, or gallops. ABDOMEN: Soft and nontender. Bowel sounds are present x4. EXTREMITIES: She is able to move all 4 extremities. There is no clubbing or cyanosis. She does have an abrasion noted to bilateral knees and ecchymosis noted to her left forearm. NEUROLOGIC: She is awake, alert, oriented x3. Speech is clear. Thought process is intact. There are no gross focal deficits. SKIN: She does have ecchymosis noted to her left forearm, bilateral left ribs; abrasion to her right knee; ecchymosis to the left hip. DIAGNOSTIC STUDIES/LAB DATA: WBCs are 13.6, RBCs 4.03, hemoglobin 12.3, hematocrit 38, platelet count 209. Sodium 140, potassium 4.0, chloride 101, carbon dioxide was 32, anion gap of 7, BUN was 27, creatinine 1.58 consistent with previous BUN and creatinine, glucose was 109, lactic acid 1.0, calcium 9.4. T bili 1.50, ASTs were 46, ALTs were 15, alkaline phosphatase was 64. C- reactive protein was 39.94. She had a CT of the brain, radiologist's impression: No acute intracranial abnormality. Moderate chronic small vessel ischemic disease, moderate cerebral volume loss. She had an x-ray of her left forearm: No evidence for fracture. She had a hip and pelvis x-ray: No evidence of fracture. She had a chest with left ribs: No displaced rib fractures. Lungs are clear. She had an electrocardiogram, which showed sinus rhythm at a rate of 92. She does have T-wave inversions in V5 and V6, which are consistent with prior EKGs. ASSESSMENT AND PLAN: Ms. Gutierrez is an 84-year-old female with a past medical history significant for vascular dementia, polymyalgia rheumatica, systolic congestive heart failure with an EF of 35% to 40%, hypertension, hyperlipidemia and coronary artery disease, who has had frequent falls at home, one being on Monday where she sustained a right rib fracture and again last evening. She will be admitted for: 1. Falls. I will get PT/OT evaluation. At this time, the does not feel he can care for the patient any longer at home due to her safety and multiple falls; she has had 4 falls in the past month, 2 within the last week. We will look into short-term rehab after PT and OT evaluation. 2. History of Polymyalgia rheumatica. The patient should continue on prednisone 5 mg p.o. daily as previously prescribed. 3. history of Congestive heart failure. Not in acute exacerbation. The patient will continue on carvedilol, Lasix 20 mg every other day as previously prescribed. 4. Acid reflux. The patient should continue on pantoprazole 40 mg p.o. b.i.d. 5. History of gastrointestinal bleed in April of 2019. She should continue on pantoprazole 40 mg p.o. b.i.d. 6. Chronic kidney disease, stage 3. The patient's BUN and creatinine are currently at baseline. We should continue to avoid nephrotoxic medications. 7. FEN: She can have heart-healthy, caffeine okay diet. 8. Code status: She is a DNR/DNI. 9. DVT prophylaxis: I will place her on SCDs. I will hold off on chemical DVT prophylaxis as the patient has multiple areas of ecchymosis and frequent falls. TIME SPENT: Time spent on this admission was 60 minutes, greater than half that time was spent at the bedside reviewing events leading thus far to her hospitalization, performing physical exam, and reviewing my plan of care. I have discussed this with my attending, Dr. Ragini See; she is in agreement with my plan. TUNG BALL, ROUGH PATCHER [id number]/[facility] #: [id number] C[place]
[2019-09-05] MEDS: Atorvastatin* 40 MG TAB PO SCH (21:01)
[2019-09-05] MEDS: Pantoprazole TAB * 40 MG TAB PO SCH (21:02)
[2019-09-05] MEDS: Gabapentin CAP(*) 300 MG PO SCH (21:02)
[2019-09-05] MEDS: Ferrous Sulfate TAB* 325 MG PO SCH (21:03)
[2019-09-05] MEDS: Carvedilol TAB* 3.125 MG PO SCH (21:03)
[2019-09-06 02:24] LABS: Urine Appearance Clear; Urine Bilirubin Negative (Negative); Urine Blood Negative (Negative); Urine Color Yellow; Urine Glucose Negative (Negative); Urine Ketones Negative (Negative); Urine Nitrite Negative (Negative); Urine Protein Negative (Negative); Urine Specific Gravity 1.012 (1.010-1.030); Urine Urobilinogen Negative (Negative)
[2019-09-06 10:12] LABS: ABS Basophils 0.1 10^3/ul (0-0.2); ABS Eosinophils 0.1 10^3/ul (0-0.6); ABS Lymphocytes 0.9 10^3/ul (1.0-4.8); ABS Neutrophils 11.3 10^3/ul (1.5-7.7); Eosinophil % 0.6 %; Hematocrit 39 % (35-47); Lymphocyte % 6.5 %; Mean Corpuscular HGB Conc 33 g/dL (31-36); Mean Corpuscular Hemoglobin 31 pg (27-31); Mean Corpuscular Volume 94 fL (80-97); Mean Platelet Volume 10.2 fL (7.4-10.4); Nucleated Red Blood Cells % 0.1; Platelet Count 203 10^3/uL (150-450); Red Blood Count 4.21 10^6 /uL (3.70-4.87); Red Cell Distribution Width 15 % (10-15); White Blood Count 13.3 10^3/uL (3.5-10.8)
[2019-09-06 10:31] LABS: BUN/Creatinine Ratio 17.9 (8-20); Blood Urea Nitrogen 27 mg/dL (6-24); CO2 Carbon Dioxide 27 mmol/L (22-32); Calcium 9.6 mg/dL (8.6-10.3); Chloride 102 mmol/L (101-111); EGFR African American 39.8 (>60); EGFR Non-African American 32.9 (>60); Glucose 101 mg/dL (70-100); Sodium 140 mmol/L (135-145)
[2019-09-06 11:13] LABS: Anion Gap 11 mmol/L (2-11)
--- NOTE | 2019-09-06 12:02 | PN ---
Subjective Date of Service: 09/06/19 Interval History: Ms. Gutierrez is feeling well this morning. She offers no complaints. Denies pain in ribs or elsewhere. She believes she is at a library right now. Denies CP, SOB, N /V. She is hungry. Nursing concerned that patient was aspirating on thin liquids and applesauce this morning. Family History: Unchanged from Admission Social History: Unchanged from Admission Past Medical History: Unchanged from Admission Objective Active Medications: Acetaminophen (Tylenol Tab*) 650 mg PO Q4H PRN MILD PAIN or TEMP > 100.4 Amiodarone HCl (Cordarone Tab*) 50 mg PO 1200 AMI Atorvastatin Calcium (Lipitor*) 40 mg PO BEDTIME AMI Carvedilol (Coreg Tab*) 3.125 mg PO BID AMI Clonazepam (Klonopin Tab(*)) 1 mg PO BEDTIME PRN ANXIETY Cyanocobalamin (Vitamin B12 Tab*) 1,000 mcg PO DAILY AMI Escitalopram Oxalate (Lexapro *) 10 mg PO QAM AMI Ferrous Sulfate (Ferrous Sulfate Tab*) 325 mg PO BID AMI Furosemide (Lasix Tab*) 20 mg PO EVERY OTHER DAY AMI Gabapentin (Neurontin Cap(*)) 300 mg PO BEDTIME AMI Pantoprazole Sodium (Protonix Tab*) 40 mg PO BID AMI Prednisone (Deltasone Tab*) 5 mg PO QAM AMI Tramadol HCl (Ultram*) 25 mg PO TID PRN PAIN - MODERATE Oxygen Devices in Use Now: Nasal Cannula - 3L Appearance: Elderly female lying in bed in NAD Ears/Nose/Mouth/Throat: Mucous Membranes Moist Neck: NL Appearance and Movements; NL JVP, Trachea Midline Respiratory: Symmetrical Chest Expansion and Respiratory Effort, Clear to Auscultation Cardiovascular: NL Sounds; No Murmurs; No JVD Abdominal: NL Sounds; No Tenderness; No Distention Extremities: No Edema Neurological: - - Oriented to self Lines/Tubes/Other Access: Clean, Dry and Intact Peripheral IV Result Diagrams: 09/06/19 09:50 09/06/19 09:50 Assess/Plan/Problems-Billing Assessment: Ms. Gutierrez is an 84 yo F with PMH of dementia, PMR, systolic CHF, HTN, HLD, PVD, DARSHANA, CAD w/ stents, VT cardiac arrest, subclavian steal syndrome, CKD stage 3, and possible CVA; who presented to the ED as her did not feel he could care for her at home any longer after multiple recent falls. - Patient Problems (1) Falls Comment: - Multiple falls at home in the last week - Xray on 09/02 shows possible 10th right rib fracture, but xray on admission unremarkable for any rib fractures - Patient's no longer able to care for her at home - PT/OT, anticipate need for LOBO (2) Dysphagia Code(s): R13.10 - DYSPHAGIA, UNSPECIFIED Comment: - Nurse concerned about aspiration on thin liquids and applesauce this morning - Swallow eval pending (3) History of ventricular tachycardia Code(s): Z86.79 - PERSONAL HISTORY OF OTHER DISEASES OF THE CIRCULATORY SYSTEM Comment: - With cardiac arrest - Continue amiodarone (4) CAD (coronary artery disease) Code(s): I25.10 - ATHSCL HEART DISEASE OF [place] CORONARY ARTERY W/O ANG PCTRS Comment: - Continue atorvastatin, carvedilol (5) Chronic systolic heart failure Code(s): I50.22 - CHRONIC SYSTOLIC (CONGESTIVE) HEART FAILURE Comment: - Euvolemic - Continue carvedilol, furosemide (6) Polymyalgia rheumatica Code(s): M35.3 - POLYMYALGIA RHEUMATICA Comment: - Continue predisone (7) CKD (chronic kidney disease) Code(s): N18.9 - CHRONIC KIDNEY DISEASE, UNSPECIFIED Comment: - Stage 3 - Creatinine at baseline (8) Dementia Code(s): F03.90 - UNSPECIFIED DEMENTIA WITHOUT BEHAVIORAL DISTURBANCE Comment : - Supportive care (9) GERD (gastroesophageal reflux disease) Code(s): K21.9 - GASTRO-ESOPHAGEAL REFLUX DISEASE WITHOUT ESOPHAGITIS Comment : - Continue pantoprazole (10) DVT prophylaxis Comment: - SCDs (11) DNR (do not resuscitate) Comment: Status and Disposition: Inpatient. Will need LOBO. Attending: Cornelia Graham
[2019-09-06] MEDS: Cyanocobalamin TAB* 500 MCG PO SCH (14:22)
[2019-09-06] MEDS: predniSONE TAB* 5 MG PO SCH (14:23)
[2019-09-06] MEDS: Amiodarone TAB* 200 MG PO SCH (14:23)
[2019-09-06] MEDS: Carvedilol TAB* 3.125 MG PO SCH ×2 (14:23→21:20)
[2019-09-06] MEDS: Pantoprazole TAB * 40 MG TAB PO SCH ×2 (14:24→21:20)
[2019-09-06] MEDS: Ferrous Sulfate TAB* 325 MG PO SCH ×2 (14:24→21:20)
[2019-09-06] MEDS: traMADol TAB* 50 MG PO PRN ×2 (14:30→21:19)
[2019-09-06] MEDS: Escitalopram * 10 MG TAB PO SCH (14:31)
[2019-09-06] MEDS: Atorvastatin* 40 MG TAB PO SCH (21:20)
[2019-09-06] MEDS: Gabapentin CAP(*) 300 MG PO SCH ×2 (21:20→22:08)
[2019-09-07] MEDS: Furosemide TAB* 20 MG PO SCH (09:01)
[2019-09-07] MEDS: Carvedilol TAB* 3.125 MG PO SCH ×2 (09:02→21:06)
[2019-09-07] MEDS: Escitalopram * 10 MG TAB PO SCH (09:02)
[2019-09-07] MEDS: predniSONE TAB* 5 MG PO SCH (09:03)
[2019-09-07] MEDS: Pantoprazole TAB * 40 MG TAB PO SCH ×2 (09:03→21:06)
[2019-09-07] MEDS: Cyanocobalamin TAB* 500 MCG PO SCH (09:04)
[2019-09-07] MEDS: Ferrous Sulfate TAB* 325 MG PO SCH ×2 (09:04→21:07)
--- NOTE | 2019-09-07 10:16 | PN ---
Subjective Date of Service: 09/07/19 Interval History: Nurse reports an episode of aspiration overnight Currently patient reports her pain is controlled. [place] in place for urinary retention. Family History: Unchanged from Admission Social History: Unchanged from Admission Past Medical History: Unchanged from Admission Objective Active Medications: Acetaminophen (Tylenol Tab*) 650 mg PO Q4H PRN PRN Reason: MILD PAIN or TEMP > 100.4 Amiodarone HCl (Cordarone Tab*) 50 mg PO 1200 [facility] Last Admin: 09/06/19 14:23 Dose: 50 mg Atorvastatin Calcium (Lipitor*) 40 mg PO BEDTIME [facility] Last Admin: 09/06/19 21:20 Dose: 40 mg Carvedilol (Coreg Tab*) 3.125 mg PO BID [facility] Last Admin: 09/07/19 09:02 Dose: 3.125 mg Clonazepam (Klonopin Tab(*)) 1 mg PO BEDTIME PRN PRN Reason: ANXIETY Cyanocobalamin (Vitamin B12 Tab*) 1,000 mcg PO DAILY [facility] Last Admin: 09/07/19 09:04 Dose: 1,000 mcg Escitalopram Oxalate (Lexapro *) 10 mg PO QAM [facility] Last Admin: 09/07/19 09:02 Dose: 10 mg Ferrous Sulfate (Ferrous Sulfate Tab*) 325 mg PO BID [facility] Last Admin: 09/07/19 09:04 Dose: 325 mg Furosemide (Lasix Tab*) 20 mg PO EVERY OTHER DAY [facility] Last Admin: 09/07/19 09:01 Dose: 20 mg Gabapentin (Neurontin Cap(*)) 300 mg PO BEDTIME [facility] Last Admin: 09/06/19 22:08 Dose: 300 mg Pantoprazole Sodium (Protonix Tab*) 40 mg PO BID [facility] Last Admin: 09/07/19 09:03 Dose: 40 mg Prednisone (Deltasone Tab*) 5 mg PO QAM [facility] Last Admin: 09/07/19 09:03 Dose: 5 mg Tramadol HCl (Ultram*) 25 mg PO TID PRN PRN Reason: PAIN - MODERATE Last Admin: 09/06/19 21:19 Dose: 25 mg Vital Signs - 8 hr 09/07/19 09/07/19 09/07/19 03:34 08:00 08:06 Temperature 97.2 F 97.4 F Pulse Rate 90 98 Respiratory 18 22 24 Rate Blood Pressure 134/82 147/85 (mmHg) O2 Sat by Pulse 97 96 Oximetry Oxygen Devices in Use Now: Nasal Cannula Appearance: Lying in bed, sleeping, but easy to arouse, not in distress. Ears/Nose/Mouth/Throat: Mucous Membranes Moist Respiratory: Symmetrical Chest Expansion and Respiratory Effort, Clear to Auscultation Cardiovascular: RRR, No Edema Abdominal: NL Sounds; No Tenderness; No Distention, No Hepatosplenomegaly Neurological: Alert and Oriented x 3 Result Diagrams: 09/06/19 09:50 09/06/19 12:51 Additional Lab and Data: Lab Results 09/05/19 09/05/19 09/05/19 Range/Units 14:34 14:34 14:34 WBC 13.6 H (3.5-10.8) 10^3/uL RBC 4.03 (3.70-4.87) 10^6 /uL Hgb 12.3 (12.0-16.0) g/dL Hct 38 (35-47) % MCV 94 (80-97) fL MCH 31 (27-31) pg MCHC 32 (31-36) g/dL RDW 15 (10-15) % Plt Count 209 (150-450) 10^3/uL MPV 9.7 (7.4-10.4) fL Neut % (Auto) 86.2 % Lymph % (Auto) 5.8 % [place] % (Auto) 6.4 % Eos % (Auto) 1.4 % Baso % (Auto) 0.2 % Absolute Neuts (auto) 11.7 H (1.5-7.7) 10^3/ul Absolute Lymphs (auto) 0.8 L (1.0-4.8) 10^3/ul Absolute Monos (auto) 0.9 H (0-0.8) 10^3/ul Absolute Eos (auto) 0.2 (0-0.6) 10^3/ul Absolute Basos (auto) 0.0 (0-0.2) 10^3/ul Absolute Nucleated RBC 0.0 10^3/ul Nucleated RBC % 0.0 Sodium 140 (135-145) mmol/L Potassium 4.0 (3.5-5.0) mmol/L Chloride 101 (101-111) mmol/L Carbon Dioxide 32 (22-32) mmol/L Anion Gap 7 (2-11) mmol/L BUN 27 H (6-24) mg/dL Creatinine 1.58 H (0.51-0.95) mg/dL Est GFR ( Amer) 37.8 (>60) Est GFR (Non-Af Amer) 31.2 (>60) BUN/Creatinine Ratio 17.1 (8-20) Glucose 109 H (70-100) mg/dL Lactic Acid 1.0 (0.5-2.0) mmol/L Calcium 9.4 (8.6-10.3) mg/dL Total Bilirubin 1.50 H (0.2-1.0) mg/dL AST 46 H (13-39) U/L ALT 15 (7-52) U/L Alkaline Phosphatase 64 (34-104) U/L C-Reactive Protein 39.94 H (<8.01) mg/L Total Protein 6.8 (6.4-8.9) g/dL Albumin 3.7 (3.2-5.2) g/dL Globulin 3.1 (2-4) g/dL Albumin/Globulin Ratio 1.2 (1-3) Assess/Plan/Problems-Billing Assessment: Ms. Gutierrez is an 84 yo F with PMH of dementia, PMR, systolic CHF, HTN, HLD, PVD, DARSHANA, CAD w/ stents, VT cardiac arrest, subclavian steal syndrome, CKD stage 3, and possible CVA; who presented to the ED as her did not feel he could care for her at home any longer after multiple recent falls. - Patient Problems (1) Dysphagia Current Visit: Yes Status: Acute Code(s): R13.10 - DYSPHAGIA, UNSPECIFIED SNOMED Code(s): 67565292 Comment: - Now on puree diet. (2) Falls Current Visit: Yes Status: Acute Comment: - Multiple falls at home in the last week - Xray on 09/02 shows possible 10th right rib fracture, but xray on admission unremarkable for any rib fractures - Patient's no longer able to care for her at home - PT/OT, anticipate need for LOBO (3) CAD (coronary artery disease) Current Visit: No Status: Acute Code(s): I25.10 - ATHSCL HEART DISEASE OF [place] CORONARY ARTERY W/O ANG PCTRS SNOMED Code(s): 90045163 Comment: - Continue atorvastatin, carvedilol (4) CKD (chronic kidney disease) Current Visit: No Status: Acute Code(s): N18.9 - CHRONIC KIDNEY DISEASE, UNSPECIFIED SNOMED Code(s): 286284321 Comment: - Stage 3 - Creatinine at baseline (5) DNR (do not resuscitate) Current Visit: No Status: Acute Comment: (6) DVT prophylaxis Current Visit: No Status: Acute Code(s): QAY2112 - SNOMED Code(s): 352022356 Comment: - SCDs (7) Dementia Current Visit: No Status: Acute Code(s): F03.90 - UNSPECIFIED DEMENTIA WITHOUT BEHAVIORAL DISTURBANCE SNOMED Code(s): 23356977 Comment: - Supportive care (8) History of ventricular tachycardia Current Visit: Yes Status: Acute Code(s): Z86.79 - PERSONAL HISTORY OF OTHER DISEASES OF THE CIRCULATORY SYSTEM SNOMED Code(s): 426719737353754 Comment: - With cardiac arrest - Continue amiodarone (9) Chronic systolic heart failure Current Visit: No Status: Acute Code(s): I50.22 - CHRONIC SYSTOLIC ( CONGESTIVE) HEART FAILURE SNOMED Code(s): 132941625 Comment: - Euvolemic - Continue carvedilol, furosemide (10) PMR (polymyalgia rheumatica) Current Visit: No Status: Acute Code(s): M35.3 - POLYMYALGIA RHEUMATICA SNOMED Code(s): 31934975 Comment: - Continue prednisone reports her pain is controlled. Status and Disposition: Inpatient. Will need LOBO.
[2019-09-07] MEDS ORDERED: Ondansetron ODT TAB* 4 MG SL PRN (11:46)
[2019-09-07] MEDS ORDERED: Simethicone TAB* 80 MG TAB.CHEW PO PRN (11:47)
[2019-09-07] MEDS: Amiodarone TAB* 200 MG PO SCH (12:28)
[2019-09-07] MEDS: Atorvastatin* 40 MG TAB PO SCH (21:06)
[2019-09-07] MEDS: Gabapentin CAP(*) 300 MG PO SCH (21:06)
[2019-09-07] MEDS: traMADol TAB* 50 MG PO PRN (21:48)
[2019-09-07] MEDS: Phenazopyridine TAB* 100 MG PO SCH (21:48)
[2019-09-08] MEDS: Acetaminophen TAB* 325 MG PO PRN ×2 (01:09→12:06)
--- NOTE | 2019-09-08 10:27 | PN ---
Subjective Date of Service: 09/08/19 Interval History: No acute issues overnight. Having occasional back pain. No shortness of breath, no chest pain. On 3 Liters nasal canula- at baseline. Family History: Unchanged from Admission Social History: Unchanged from Admission Past Medical History: Unchanged from Admission Objective Active Medications: Acetaminophen (Tylenol Tab*) 650 mg PO Q4H PRN PRN Reason: MILD PAIN or TEMP > 100.4 Last Admin: 09/08/19 01:09 Dose: 650 mg Amiodarone HCl (Cordarone Tab*) 50 mg PO 1200 [facility] Last Admin: 09/07/19 12:28 Dose: 50 mg Atorvastatin Calcium (Lipitor*) 40 mg PO BEDTIME [facility] Last Admin: 09/07/19 21:06 Dose: 40 mg Carvedilol (Coreg Tab*) 3.125 mg PO BID [facility] Last Admin: 09/07/19 21:06 Dose: 3.125 mg Clonazepam (Klonopin Tab(*)) 1 mg PO BEDTIME PRN PRN Reason: ANXIETY Cyanocobalamin (Vitamin B12 Tab*) 1,000 mcg PO DAILY [facility] Last Admin: 09/07/19 09:04 Dose: 1,000 mcg Docusate Sodium (Colace Liq*) 100 mg PO DAILY [facility] Escitalopram Oxalate (Lexapro *) 10 mg PO QAM [facility] Last Admin: 09/07/19 09:02 Dose: 10 mg Ferrous Sulfate (Ferrous Sulfate Tab*) 325 mg PO BID [facility] Last Admin: 09/07/19 21:07 Dose: 325 mg Furosemide (Lasix Tab*) 20 mg PO EVERY OTHER DAY [facility] Last Admin: 09/07/19 09:01 Dose: 20 mg Gabapentin (Neurontin Cap(*)) 300 mg PO BEDTIME [facility] Last Admin: 09/07/19 21:06 Dose: 300 mg Ondansetron HCl (Zofran Odt Tab*) 4 mg SL Q6H PRN PRN Reason: NAUSEA/VOMITING Last Admin: 09/07/19 12:30 Dose: 4 mg Pantoprazole Sodium (Protonix Tab*) 40 mg PO BID [facility] Last Admin: 09/07/19 21:06 Dose: 40 mg Phenazopyridine HCl (Pyridium Tab*) 100 mg PO TID [facility] Stop: 09/08/19 23:59 Last Admin: 09/07/19 21:48 Dose: 100 mg Prednisone (Deltasone Tab*) 5 mg PO QAM AMI Last Admin: 09/07/19 09:03 Dose: 5 mg Simethicone (Mylicon Tab*) 80 mg PO Q6H PRN PRN Reason: INDIGESTION Tramadol HCl (Ultram*) 25 mg PO TID PRN PRN Reason: PAIN - MODERATE Last Admin: 09/07/19 21:48 Dose: 25 mg Vital Signs - 8 hr 09/08/19 03:12 Temperature 98 F Pulse Rate 78 Respiratory 18 Rate Blood Pressure 116/76 (mmHg) O2 Sat by Pulse 98 Oximetry Oxygen Devices in Use Now: Nasal Cannula Appearance: elderly female lying in bed, not in distress Ears/Nose/Mouth/Throat: Mucous Membranes Moist Respiratory: Symmetrical Chest Expansion and Respiratory Effort, Clear to Auscultation Cardiovascular: RRR, No Edema Abdominal: NL Sounds; No Tenderness; No Distention, No Hepatosplenomegaly Neurological: Alert and Oriented x 3 Result Diagrams: 09/06/19 09:50 09/06/19 12:51 Additional Lab and Data: Lab Results 09/05/19 09/05/19 09/05/19 Range/Units 14:34 14:34 14:34 WBC 13.6 H (3.5-10.8) 10^3/uL RBC 4.03 (3.70-4.87) 10^6 /uL Hgb 12.3 (12.0-16.0) g/dL Hct 38 (35-47) % MCV 94 (80-97) fL MCH 31 (27-31) pg MCHC 32 (31-36) g/dL RDW 15 (10-15) % Plt Count 209 (150-450) 10^3/uL MPV 9.7 (7.4-10.4) fL Neut % (Auto) 86.2 % Lymph % (Auto) 5.8 % [place] % (Auto) 6.4 % Eos % (Auto) 1.4 % Baso % (Auto) 0.2 % Absolute Neuts (auto) 11.7 H (1.5-7.7) 10^3/ul Absolute Lymphs (auto) 0.8 L (1.0-4.8) 10^3/ul Absolute Monos (auto) 0.9 H (0-0.8) 10^3/ul Absolute Eos (auto) 0.2 (0-0.6) 10^3/ul Absolute Basos (auto) 0.0 (0-0.2) 10^3/ul Absolute Nucleated RBC 0.0 10^3/ul Nucleated RBC % 0.0 Sodium 140 (135-145) mmol/L Potassium 4.0 (3.5-5.0) mmol/L Chloride 101 (101-111) mmol/L Carbon Dioxide 32 (22-32) mmol/L Anion Gap 7 (2-11) mmol/L BUN 27 H (6-24) mg/dL Creatinine 1.58 H (0.51-0.95) mg/dL Est GFR ( Amer) 37.8 (>60) Est GFR (Non-Af Amer) 31.2 (>60) BUN/Creatinine Ratio 17.1 (8-20) Glucose 109 H (70-100) mg/dL Lactic Acid 1.0 (0.5-2.0) mmol/L Calcium 9.4 (8.6-10.3) mg/dL Total Bilirubin 1.50 H (0.2-1.0) mg/dL AST 46 H (13-39) U/L ALT 15 (7-52) U/L Alkaline Phosphatase 64 (34-104) U/L C-Reactive Protein 39.94 H (<8.01) mg/L Total Protein 6.8 (6.4-8.9) g/dL Albumin 3.7 (3.2-5.2) g/dL Globulin 3.1 (2-4) g/dL Albumin/Globulin Ratio 1.2 (1-3) Microbiology and Other Data: Microbiology 09/07/19 14:50 Stool Occult Blood (SARAH) - Final Stool Assess/Plan/Problems-Billing Assessment: Ms. Gutierrez is an 84 yo F with PMH of dementia, PMR, systolic CHF, HTN, HLD, PVD, DARSHANA, CAD w/ stents, VT cardiac arrest, subclavian steal syndrome, CKD stage 3, and possible CVA; who presented to the ED as her did not feel he could care for her at home any longer after multiple recent falls. - Patient Problems (1) Dysphagia Current Visit: Yes Status: Acute Code(s): R13.10 - DYSPHAGIA, UNSPECIFIED SNOMED Code(s): 81947815 Comment: - Now on puree diet. (2) Falls Current Visit: Yes Status: Acute Comment: - Multiple falls at home in the last week - Xray on 09/02 shows possible 10th right rib fracture, but xray on admission unremarkable for any rib fractures - Patient's no longer able to care for her at home - PT/OT, anticipate need for LOBO (3) CAD (coronary artery disease) Current Visit: No Status: Acute Code(s): I25.10 - ATHSCL HEART DISEASE OF [place] CORONARY ARTERY W/O ANG PCTRS SNOMED Code(s): 12125009 Comment: - Continue atorvastatin, carvedilol (4) CKD (chronic kidney disease) Current Visit: No Status: Acute Code(s): N18.9 - CHRONIC KIDNEY DISEASE, UNSPECIFIED SNOMED Code(s): 684349082 Comment: - Stage 3 - Creatinine at baseline (5) DNR (do not resuscitate) Current Visit: No Status: Acute Comment: (6) DVT prophylaxis Current Visit: No Status: Acute Code(s): SVO5445 - SNOMED Code(s): 862326220 Comment: - SCDs (7) Dementia Current Visit: No Status: Acute Code(s): F03.90 - UNSPECIFIED DEMENTIA WITHOUT BEHAVIORAL DISTURBANCE SNOMED Code(s): 15683463 Comment: - Supportive care (8) History of ventricular tachycardia Current Visit: Yes Status: Acute Code(s): Z86.79 - PERSONAL HISTORY OF OTHER DISEASES OF THE CIRCULATORY SYSTEM SNOMED Code(s): 001201603690435 Comment: - With cardiac arrest - Continue amiodarone (9) Chronic systolic heart failure Current Visit: No Status: Acute Code(s): I50.22 - CHRONIC SYSTOLIC ( CONGESTIVE) HEART FAILURE SNOMED Code(s): 534552081 Comment: - Euvolemic - Continue carvedilol, furosemide (10) PMR (polymyalgia rheumatica) Current Visit: No Status: Acute Code(s): M35.3 - POLYMYALGIA RHEUMATICA SNOMED Code(s): 03347473 Comment: - Continue prednisone reports her pain is controlled. Status and Disposition: Plan for [facility] placement.
[2019-09-08] MEDS: Cyanocobalamin TAB* 500 MCG PO SCH (10:38)
[2019-09-08] MEDS: Carvedilol TAB* 3.125 MG PO SCH (10:39)
[2019-09-08] MEDS: predniSONE TAB* 5 MG PO SCH (10:40)
[2019-09-08] MEDS: Ferrous Sulfate TAB* 325 MG PO SCH ×2 (10:40→20:39)
[2019-09-08] MEDS: Escitalopram * 10 MG TAB PO SCH (10:41)
[2019-09-08] MEDS: Phenazopyridine TAB* 100 MG PO SCH ×3 (10:41→20:38)
[2019-09-08] MEDS: Pantoprazole TAB * 40 MG TAB PO SCH ×2 (10:41→20:37)
[2019-09-08] MEDS: Docusate LIQ* 100 MG/10 ML UDC PO SCH (10:42)
[2019-09-08] MEDS: Amiodarone TAB* 200 MG PO SCH (12:46)
--- NOTE | 2019-09-08 16:02 | PN ---
Hospitalist Progress Note Date of Service: 09/08/19 Blood pressure running on the low side: will discontinue the carvedilol
[2019-09-08] MEDS: Gabapentin CAP(*) 300 MG PO SCH (20:37)
[2019-09-08] MEDS: Atorvastatin* 40 MG TAB PO SCH (20:38)
[2019-09-09] MEDS: Escitalopram * 10 MG TAB PO SCH (08:33)
[2019-09-09] MEDS: Pantoprazole TAB * 40 MG TAB PO SCH (08:33)
[2019-09-09] MEDS: Ferrous Sulfate TAB* 325 MG PO SCH (08:33)
[2019-09-09] MEDS: Cyanocobalamin TAB* 500 MCG PO SCH (08:33)
[2019-09-09] MEDS: Furosemide TAB* 20 MG PO SCH (08:33)
[2019-09-09] MEDS: Docusate LIQ* 100 MG/10 ML UDC PO SCH (08:33)
[2019-09-09] MEDS: predniSONE TAB* 5 MG PO SCH (08:34)
[2019-09-09] MEDS: traMADol TAB* 50 MG PO PRN (08:44)
[2019-09-09] MEDS: Amiodarone TAB* 200 MG PO SCH (12:20)
[2019-09-09 12:45] VITALS: BP 124/75
--- NOTE | 2019-09-09 14:37 | DS ---
CC: Dr. Dye; [facility] * DATE OF ADMISSION: 09/05/2019. DATE OF DISCHARGE: 09/09/2019. PRIMARY CARE PHYSICIAN: Dr. Dye [facility]. ATTENDING PHYSICIAN: Dr. Ariel Santizo * (dictated by KATHRYN Servin). PRIMARY DIAGNOSES: 1. Recurrent falls. 2. Right rib pain. SECONDARY DIAGNOSES: 1. Systolic congestive heart failure. 2. Hypertension. 3. Hyperlipidemia. 4. Vascular dementia. 5. Peripheral vascular disease. 6. Polymyalgia rheumatica. 7. Iron deficiency anemia. 8. Coronary artery disease, status post stenting. 9. History of V-tach with cardiac arrest. 10. Subclavian steal syndrome. 11. CKD, stage 3. 12. Questionable history of stroke with complications of carotid endarterectomy. 13. Osteoarthritis. STUDIES WHILE IN THE HOSPITAL: 1. CT brain without: Impression: No acute intracranial abnormality. Moderate chronic small vessel ischemic disease is likely. Moderate cerebral/ cerebellar volume loss. Postoperative changes as above. 2. Left forearm x-ray: Impression: No evidence for fracture. 3. Left hip and pelvis: Impression: No evidence for fracture. If the patient 's symptoms persist, recommend follow-up imaging. 4. Ribs and PA chest: Impression: No displaced rib fracture by radiograph. 5. CT cervical spine: Impression: No cervical spine fracture or traumatic malalignment. Varying degrees of multilevel spondylosis does not result in severe spinal canal or neural foraminal stenosis. Biapical predominant centrilobular emphysema. DISCHARGE MEDICATIONS: Home medications: 1. Amiodarone 50 mg p.o. daily. 2. Atorvastatin 40 mg at bedtime. 3. Caltrate 600 plus D one tab p.o. b.i.d. 4. Clonazepam 1 mg p.o. at bedtime prn. 5. Cyanocobalamin 1,000 mcg p.o. daily. 6. Escitalopram 10 mg p.o. daily. 7. Ferrous Sulfate 325 mg p.o. b.i.d. 8. Furosemide 20 mg q.o.d. 9. Gabapentin 300 mg p.o. at bedtime. 10. Lidocaine patch one patch transdermally daily. 11. Magnesium Oxide 400 mg p.o. daily. 12. Melatonin 5 mg p.o. at bedtime. 13. Nitroglycerin 0.4 mg sublingual q.5 hours prn chest pain. 14. Pantoprazole 40 mg p.o. b.i.d. 15. Prednisone 5 mg p.o. daily. 16. Tramadol 25 mg p.o. t.i.d. prn. Discontinued home medications: 1. Carvedilol 3.125 mg p.o. b.i.d. HISTORY OF PRESENT ILLNESS/HOSPITAL COURSE: Ms. Gutierrez is an 84-year-old female with a past medical history of vascular dementia, PMR, systolic heart failure, hypertension, hyperlipidemia, and coronary artery disease who presented to the ER from home after a fall. For full and complete details, please see the history and physical dictated by Ana Ball NP. In short, the patient presents with two falls in the last one week and four falls in the last one month. She was noted to have sustained a right rib fracture. The patient then fell again. She was evaluated in the ER; multiple x-rays were obtained and showed no evidence of left rib fracture, no evidence of pelvic or hip fracture on the left, left forearm with no evidence of fracture, CT of the brain showed no acute intracranial abnormalities. The patient was admitted. She worked with Physical Therapy who recommended short- term rehab. This was obtained and the patient will be going to [facility]. The patient complains of multiple painful areas on the body, including the right and left rib. Left ribs were imaged. We will get right rib imaging prior to discharge. The patient had imaging on September 02 of the right ribs where there is noted to be a suggestion of fracture of the right tenth rib posteriorly. The patient was noted to have some mild hypotension during her stay. Her Carvedilol was discontinued because of this. Suggestions are to continue to monitor the patient's blood pressure for need to restart of Carvedilol. The patient states she is doing well today. She is pleasantly confused. She does note that she has some back pain, but otherwise she has no other complaints today, except for back pain and right rib pain. REVIEW OF SYSTEMS: A fourteen point review of systems has been performed and all the pertinent positives and negatives are in the HPI. All other systems are negative. PHYSICAL EXAMINATION: General: Ms. Gutierrez is a well-developed, well-nourished, older white female who is sitting up in bed. She moves slowly, but appears to be in no acute distress. She is pleasantly confused and is cooperative. HEENT : Pupils are unequal, which is chronic, left greater than right. EOMI, nonicteric sclerae. Hearing is grossly intact. Oral mucous membranes are moist, there are no lesions. The tongue is at midline. Face is symmetric. Cardiovascular: Regular rate and rhythm with S1, S2 present without murmurs, rubs, clicks, or gallops. There is no JVD. There is no peripheral edema. Pulmonary: Symmetrical chest expansion without use of accessory muscles. Lungs : Clear to auscultation bilaterally, although the patient is unable to take a deep breath due to rib pain. Abdomen: Flat, bowel sounds in all quadrants. The abdomen is soft. There is no tenderness to palpation. Neuro: The patient is awake. She is unable to answer orientation questions, stating "I don't know. " Cranial nerves grossly intact. Strength is symmetrical, 5/5 bilateral upper and lower extremities. Ms. Gutierrez is stable for discharged. Vital signs: Temperature 97.2 temporal, heart rate 88, respiratory rate 16, oxygen saturation 96 percent on 3 liters, blood pressure 124/75. DISCHARGE PLAN: Ms. Gutierrez will be discharged to [facility]. Medications as above. CONDITION ON DISCHARGE: Fair. DIET: Pureed. ACTIVITY: Monitoring. Patient with multiple falls. FOLLOW-UP: Follow-up with [facility] provider on an as needed basis. Return to the ER or the nearest hospital with any concerns. This is a summarized report of a complex medical history and hospital stay. For further details, please see the entire medical record. TIME SPENT: Approximately 35 minutes were spent on this discharge, greater than half of that time was spent [id number] with the patient discussing discharge plans and instructions. KATHRYN SHAIKH [id number]/[facility] #: [id number] [place]
== END 2019-09-09 16:20 | DRG 204 ==
LOC: ED 11:15 → MED 16:20
PROVIDERS: ADMIT Internal Medicine; ATTEND Internal Medicine
DX: R07.81 Pleurodynia (principal); I50.22 Chronic systolic (congestive) heart failure; I13.0 Hypertensive heart and chronic kidney disease with heart failure and stage 1 through stage 4 chronic kidney disease, or unspecified chronic kidney disease; R29.6 Repeated falls; F01.50 Vascular dementia, unspecified severity, without behavioral disturbance, psychotic disturbance, mood disturbance, and anxiety; M35.3 Polymyalgia rheumatica; E78.5 Hyperlipidemia, unspecified; I25.10 Atherosclerotic heart disease of native coronary artery without angina pectoris; I73.9 Peripheral vascular disease, unspecified; N18.3 Chronic kidney disease, stage 3 (moderate); Z66 Do not resuscitate; W19.XXXA Unspecified fall, initial encounter; K21.9 Gastro-esophageal reflux disease without esophagitis; E78.00 Pure hypercholesterolemia, unspecified; J45.909 Unspecified asthma, uncomplicated; M19.042 Primary osteoarthritis, left hand; M19.041 Primary osteoarthritis, right hand; M19.072 Primary osteoarthritis, left ankle and foot; M19.071 Primary osteoarthritis, right ankle and foot; F41.9 Anxiety disorder, unspecified; M81.0 Age-related osteoporosis without current pathological fracture; M79.7 Fibromyalgia; F32.9 Major depressive disorder, single episode, unspecified; R13.10 Dysphagia, unspecified; R33.9 Retention of urine, unspecified; I95.9 Hypotension, unspecified; D50.9 Iron deficiency anemia, unspecified; M47.9 Spondylosis, unspecified; M54.9 Dorsalgia, unspecified; Z95.5 Presence of coronary angioplasty implant and graft; Z90.49 Acquired absence of other specified parts of digestive tract; Z98.41 Cataract extraction status, right eye; Z98.42 Cataract extraction status, left eye; Z98.51 Tubal ligation status; Z90.710 Acquired absence of both cervix and uterus; Z88.8 Allergy status to other drugs, medicaments and biological substances; Z88.1 Allergy status to other antibiotic agents; Z88.6 Allergy status to analgesic agent; Z80.1 Family history of malignant neoplasm of trachea, bronchus and lung; Y92.009 Unspecified place in unspecified non-institutional (private) residence as the place of occurrence of the external cause; I25.2 Old myocardial infarction; Z85.828 Personal history of other malignant neoplasm of skin; Z87.891 Personal history of nicotine dependence; Z79.52 Long term (current) use of systemic steroids
CPT/HCPCS: 36415; 70450; 72070; 72110; 72125; 80048; 80053; 81003; 82272; 83605; 85025; 85027; 86140; 93005; 93880; 99283; A9270-GY; G8978-GP-CK; G8979-GP-CI; G8987-GO-CK; G8988-GO-CJ; J7512

== ENCOUNTER 2019-10-08 05:09 | Emergency (ER) | payer MEDICARE, OTHER ==
[2019-10-08] MEDS ORDERED: NS 0.9% 1000 ML** 1,000 ML IV ONE (05:19)
--- NOTE | 2019-10-08 05:30 | ED ---
GI/ HPI - HPI Summary HPI Summary: Patient is an 84 y/o F presenting to the ED via EMS for a chief complaint of blood in the stool. Patient describes the blood in the stool as black. Patient also reports generalized weakness, diarrhea, and dizziness. Patient denies nausea, vomiting, or lightheadedness. Per EMS, patient had confusion and slightly slurred speech. Last known well time was at 22:00 on 10/07/19. Patient has a PMHx of KS and HTN, but denies a PMHx of DM or colitis. Patient denies changing her dietary habits recently. Patient denies taking blood thinners. Patient lives with her . Medications reviewed. - History of Current Complaint Chief Complaint: EDWeakness Stated Complaint: POS CODE MALAGON PER EMS Hx Obtained From: Patient, EMS Hx Last Menstrual Period: years ago. Onset/Duration: Atraumatic, Still Present Timing: Intermittent, Lasting Hours Severity: Moderate Current Severity: Moderate Pain Intensity: 0 Associated Signs and Symptoms: Positive: Dizziness, Weakness - Generalized, Blood w/Stool - Black stool, Diarrhea, Other: - Per EMS, slightly slurred speech and confusion. Negative: Nausea, Vomiting, Lightheadedness - Additional Pertinent History Primary Care Physician: MELQUIADES - Allergy/Home Medications Allergies/Adverse Reactions: Allergies Allergy/AdvReac Type Severity Reaction Status Date / Time nut - unspecified Allergy Severe Hives/Diff. Verified 09/02/19 15:31 Breathing/I tching monosodium glutamate AdvReac Mild headache, Verified 09/02/19 15:31 jitters cephalexin AdvReac GI Upset Verified 09/02/19 15:31 ibuprofen AdvReac Nausea Verified 09/02/19 15:31 CHESTNUTS Allergy Severe LIPS SWELL Uncoded 06/16/19 16:12 AND ARE VERY PAINFUL METALS Allergy Unknown Rash Uncoded 06/16/19 16:12 SEASONAL Allergy STUFFY Uncoded 06/16/19 16:12 HAYFEVER/ENVIRONMENTAL NOSE, WATERY EYES Home Medications: Home Medications Acetaminophen 650 mg PO BID 10/08/19 [History Confirmed 10/08/19] Docusate Sodium 100 mg PO DAILY PRN 10/08/19 [History Confirmed 10/08/19] Omeprazole CAP(NF) [PriLOSEC CAP(NF)] 20 mg PO BID 10/08/19 [History Confirmed 10/08/19] carvediloL [Carvedilol] 1 tab PO BID 10/08/19 [History Confirmed 10/08/19] PMH/Surg Hx/FS Hx/Imm Hx Previously Healthy: Yes Endocrine/Hematology History: Reports: Hx Anticoagulant Therapy, Hx Anemia - RECIEVED IRON INFUSIONS IN PAST Denies: Hx Diabetes, Hx Thyroid Disease Cardiovascular History: Reports: Hx Angina - RARELY USES NITRO, Hx Cardiomegaly , Hx Congestive Heart Failure, Hx Coronary Artery Disease - ON MED, Hx Hypercholesterolemia, Hx Hypotension - current, Hx Myocardial Infarction - 2014 , Hx Peripheral Vascular Disease, 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, Other Cardiovascular Problems/Disorders - fem pop bypass 1996 [facility] [place] Dr. godwin left carotid artery 2013 right carot Denies: Hx Deep Vein Thrombosis, Hx Hypertension, Hx Pacemaker/ICD Respiratory History: Reports: Hx Asthma - POSSIBLY IN THE PAST, Hx Pneumonia Denies: Hx Chronic Obstructive Pulmonary Disease (COPD), Hx Lung Cancer GI History: Reports: Other GI Disorders - CHRONIC CONSTIPATION-TAKES LAXATIVE DAILY peg tube 03/12/18 Denies: Hx Gall Bladder Disease, Hx Gastroesophageal Reflux Disease, Hx Gastrointestinal Bleed, Hx Ulcer, Hx Urosepsis History: Reports: Hx Chronic Renal Failure Denies: Hx Dialysis, Hx Kidney Stones, Hx Renal Disease, Other Problems/ Disorders Musculoskeletal History: Reports: Hx Arthritis - HANDS & FEET, Hx Fibromyalgia, Hx Osteoporosis Denies: Hx Rheumatoid Arthritis Sensory History: Reports: Hx Cataracts - BILAT, Hx Contacts or Glasses Denies: Hx Legally Blind, Hx Deafness, Hx Hearing Aid Opthamlomology History: Reports: Hx Cataracts - BILAT, Hx Contacts or Glasses Denies: Hx Legally Blind EENT History: Denies: Hx Deafness Neurological History: Reports: Hx Dementia - vascular dementia, Hx Headaches - TAKES TRAMADOL PRN, Hx Migraine - last episode 1 yr ago 2017, Hx Nerve Disease - see below, Other Neuro Impairments/Disorders - 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 type. Hx Chemotherapy: No Hx Radiation Therapy: No - Surgical History Surgical History: Yes Surgery Procedure, Year, and Place: Hysterectomy, [place], [facility] [place] Ch[place]ectomy, 1993, [facility] [place]. nose surgery .DR CHIN. BILAT.Femoral bypass, 1996, [facility] [place]. Left carotid endardectomy 2013. Right first toe, first joint replacement, 2005, [facility] [place]. LIGATION OF ETHMOIDAL INTERNAL MAXILIARY ARTERIES 2007. MYLEOGRAM. LASER SURGERY FOR EPISTAXIS X 6 OVER PAST 10 YEARS. RIGHT CAROTID ENDARECTOMY 03/01/18 [facility]. PEG TUBE INSERTION 03/12/18 [facility]. NASAL EPISTAXIS [facility] [place] DR. CHIN Hx Anesthesia Reactions: No - Immunization History Date of Tetanus Vaccine: up to date Date of Influenza Vaccine: up to date Infectious Disease History: No Infectious Disease History: Denies: Hx Clostridium Difficile, Hx Hepatitis, Hx Human Immunodeficiency Virus (HIV), Hx of Known/Suspected MRSA, Hx Shingles, Hx Tuberculosis, Hx Known/ Suspected VRE, Hx Known/Suspected VRSA, History Other Infectious Disease, Traveled Outside the in Last 30 Days - Family History Known Family History: Positive: Hypertension Negative: Cardiac Disease - Social History Occupation: Retired Lives: With Family Alcohol Use: None Alcohol Amount: a glass of wine a few times a week Hx Substance Use: No Substance Use Type: Reports: None Hx Tobacco Use: Yes Smoking Status (MU): Former Smoker Type: Cigarettes Amount Used/How Often: 1 PPD Length of Time of Smoking/Using Tobacco: 47 YEARS Have You Smoked in the Last Year: No Review of Systems Positive: Diarrhea, Other - Positive black stool. Negative: Vomiting, Nausea Neurological: Other - Positive dizziness, positive confusion per EMS; negative lightheadedness Positive: Weakness - Generalized, Slurred Speech - Per EMS All Other Systems Reviewed And Are Negative: Yes Physical Exam - Summary Physical Exam Summary: Appearance: Well-appearing, Well-nourished, lying in bed comfortably. Frail appearing elderly woman in no acute distress. Skin: Warm, dry, no obvious rash Eyes: sclera anicteric, there is conjunctival pallor ENT: mucous membranes moist, pharynx appears normal Neck: Supple, nontender Respiratory: Clear to auscultation, no signs of respiratory distress Cardiovascular: Normal S1, S2. No murmurs. Normal distal pulses in tibial and radial bilaterally. Abdomen: Soft, nontender, normal active bowel sounds present Musculoskeletal: Normal, Strength/ROM Intact Neurological: A&Ox3, awake and alert, mentation is normal, speech is fluent and appropriate Psychiatric: affect is normal, does not appear anxious or depressed Rectal: skin around the buttocks and perirectal area are markedly erythematous, but no breakdown of the skin. Black stool, no blood in the rectal wall, sent for occult blood testing. Triage Information Reviewed: Yes Vital Signs On Initial Exam: Initial Vitals Temp Pulse Resp BP Pulse Ox 97.7 F 77 12 167/81 97 10/08/19 05:16 10/08/19 05:16 10/08/19 05:16 10/08/19 05:16 10/08/19 05:16 Vital Signs Reviewed: Yes Procedures - Sedation Patient Received Moderate/Deep Sedation with Procedure: No Diagnostics - Vital Signs Vital Signs Temp Pulse Resp BP Pulse Ox 10/08/19 05:16 97.7 F 77 12 167/81 97 - Laboratory Result Diagrams: 10/08/19 08:05 10/08/19 05:45 Lab Statement: Any lab studies that have been ordered have been reviewed, and results considered in the medical decision making process. - EKG 06:46 Cardiac Rate: NL - 76 BPM EKG Rhythm: Sinus Rhythm ST Segment: Normal Ectopy: None Summary of EKG Findings: EKG at 06:46 shows 76 BPM with normal sinus rhythm, no STEMI, definite non-specific ST-T changes similar to prior. Reviewed and interpreted by ED physician. Re-Evaluation - Re-Evaluation First Re-Evaluation Time: 06:33 Change: Unchanged Comment: At 06:33, patient had a diarrheal bowel movement while sleeping. Stool does not look or smell hemolytic. She remains stable. GIGU Course/Dx - Course Course Of Treatment: Patient is an 84 y/o F presenting to the ED via EMS for a chief complaint of blood in the stool. Patient describes the blood in the stool as black. Patient also reports generalized weakness, diarrhea, and dizziness. Patient denies nausea, vomiting, or lightheadedness. Per EMS, patient had confusion and slightly slurred speech. Last known well time was at 22:00 on 10/15. Patient has a PMHx of KS and HTN, but denies a PMHx of DM or colitis. Patient denies changing her dietary habits recently. Patient denies taking blood thinners. Patient lives with her . Medications reviewed. On exam, frail appearing elderly woman in no acute distress, there is conjunctival pallor. Rectal: skin around the buttocks and perirectal area are markedly erythematous, but no breakdown of the skin. Black stool, no blood in the rectal wall, sent for occult blood testing. In the ED course, patient was given diphenoxylate 2 tab PO and fluids. Patient has had previous upper GI bleeds, but found to be too frail to undergo endoscopy. Laboratory abnormal findings: Hgb 11.2, RDW 16, absolute neuts 8.2, absolute lymphs 0.6, INR 1.14, BUN 27, creatinine 1.52, total protein 5.8. Stool occult blood: positive. EKG at 06: 46 shows 76 BPM with normal sinus rhythm, no STEMI, definite non-specific ST-T changes similar to prior. At 06:33, patient had a diarrheal bowel movement while sleeping. Stool does not look or smell hemolytic. She remains stable. Patient will be signed out at 07:00 on 10/08/[address] Qasim Sow MD to Dr. Karen Ashraf MD at shift change, pending repeat hemoglobin at 08:00 and disposition. - Diagnoses Provider Diagnoses: Diarrhea Discharge ED - Sign-Out/Discharge Documenting (check all that apply): Sign-Out Patient Signing out patient TO: Karen Ashraf - 07:00 on 10/08/19 - Discharge Plan Condition: Good Disposition: HOME Patient Education Materials: Acute Diarrhea (ED) Referrals: Iliana Dye MD [Primary Care Provider] - Additional Instructions: - Stay well hydrated. Drink plenty of non-alcoholic, non-caffinated beverages - Eat small, frequent meals - [place] food - dry toast, crackers, eggs - avoid spicy food, acidic food, tomato based food until you are evaluated in follow-up Contact your doctor today to schedule a follow-up appointment - Billing Disposition and Condition Condition: GOOD Disposition: Home - Attestation Statements Document Initiated by Aftab: Yes Documenting Scribe: Promise Jin Provider For Whom Aftab is Documenting (Include Credential): Qasim Sow MD Scribe Attestation: Promise Barahona scribed for Qasim Sow MD on 10/11/19 at 1834. Scribe Documentation Reviewed: Yes Provider Attestation: The documentation as recorded by the Promise hall accurately reflects the service I personally performed and the decisions made by me, Qasim Sow MD Status of Aftab Document: Viewed
[2019-10-08 05:54] LABS: ABS Eosinophils 0.2 10^3/ul (0-0.6); ABS Lymphocytes 0.6 10^3/ul (1.0-4.8); ABS Monocytes 0.7 10^3/ul (0-0.8); ABS Neutrophils 8.2 10^3/ul (1.5-7.7); Eosinophil % 2.4 %; Hematocrit 35 % (35-47); Hemoglobin 11.2 g/dL (12.0-16.0); Lymphocyte % 6.1 %; Mean Corpuscular HGB Conc 32 g/dL (31-36); Mean Corpuscular Hemoglobin 30 pg (27-31); Mean Corpuscular Volume 93 fL (80-97); Mean Platelet Volume 9.9 fL (7.4-10.4); Platelet Count 209 10^3/uL (150-450); Red Blood Count 3.71 10^6 /uL (3.70-4.87); Red Cell Distribution Width 16 % (10-15); White Blood Count 9.7 10^3/uL (3.5-10.8)
[2019-10-08 06:10] LABS: BUN/Creatinine Ratio 17.8 (8-20); EGFR Non-African American 32.7 (>60); Potassium 3.6 mmol/L (3.5-5.0)
[2019-10-08 06:11] LABS: Albumin 3.2 g/dL (3.2-5.2); Albumin/Globulin Ratio 1.2 (1-3); Calcium 8.7 mg/dL (8.6-10.3); EGFR African American 39.5 (>60); Globulin 2.6 g/dL (2-4); Total Bilirubin 0.9 mg/dL (0.2-1.0); Total Protein 5.8 g/dL (6.4-8.9)
[2019-10-08 06:19] LABS: Activated Partial Thrombo Time 32.3 seconds (26.0-38.0); INR 1.14 (0.82-1.09)
[2019-10-08] MEDS ORDERED: Diphenoxylat/Atrop 2.5-0.025M* 1 TAB PO ONE (06:34)
--- NOTE | 2019-10-08 07:18 | ED ---
Progress - Progress Note Progress Note: Pt is a signout from Dr. Sow at 0700 on 10/08/19 pending repeat hemoglobin at 0800. Repeat HCT 36, up from 35 I reviewed with patient - agreement and understanding of plan Pt will contact PCP for follow-up Re-Evaluation - Re-Evaluation First Re-Evaluation Time: 08:24 Change: Improved Comment: Pt's second Hgb & Hct is better. I discussed plan for disposition with pt and she is agreeable. Course/Dx - Diagnoses Provider Diagnoses: Diarrhea Discharge ED - Sign-Out/Discharge Documenting (check all that apply): Patient Departure, Receiving Sign-Out Receiving patient FROM: Qasim Sow - Discharge Plan Condition: Good Disposition: HOME Patient Education Materials: Acute Diarrhea (ED) Referrals: Iliana Dye MD [Primary Care Provider] - Additional Instructions: - Stay well hydrated. Drink plenty of non-alcoholic, non-caffinated beverages - Eat small, frequent meals - [place] food - dry toast, crackers, eggs - avoid spicy food, acidic food, tomato based food until you are evaluated in follow-up Contact your doctor today to schedule a follow-up appointment - Billing Disposition and Condition Condition: GOOD Disposition: Home - Attestation Statements Document Initiated by Scribe: Yes Documenting Scribe: Hanh Elaine Provider For Whom Aftab is Documenting (Include Credential): Karen Ashraf MD. Scribe Attestation: IHanh, scribed for Karen Ashraf MD. on 10/08/19 at 0834. Scribe Documentation Reviewed: Yes Provider Attestation: The documentation as recorded by the scribe, Hanh Elaine accurately reflects the service I personally performed and the decisions made by me, Karen Ashraf MD. Status of Scribe Document: Viewed
[2019-10-08 08:10] LABS: Hematocrit 36 % (35-47); Hemoglobin 11.7 g/dL (12.0-16.0)
[2019-10-08 08:30] VITALS: BP 179/80
== END 2019-10-08 09:02 | disposition home or self-care (01) ==
LOC: ED 05:09
DX: R19.7 Diarrhea, unspecified (principal); R53.1 Weakness; R42 Dizziness and giddiness; I25.10 Atherosclerotic heart disease of native coronary artery without angina pectoris; I11.0 Hypertensive heart disease with heart failure; K59.09 Other constipation; I08.0 Rheumatic disorders of both mitral and aortic valves; Z79.01 Long term (current) use of anticoagulants; F41.9 Anxiety disorder, unspecified; F32.9 Major depressive disorder, single episode, unspecified; Z96.698 Presence of other orthopedic joint implants; Z88.6 Allergy status to analgesic agent; Z88.1 Allergy status to other antibiotic agents; Z91.018 Allergy to other foods; Z91.09 Other allergy status, other than to drugs and biological substances; Z87.891 Personal history of nicotine dependence
CPT/HCPCS: 36415; 80053; 82270; 85014; 85018; 85025; 85610; 85730; 86850; 86900; 86901; 93005; 96360; 96361; 99284; A9270-GY

== ENCOUNTER 2019-11-03 09:53 | Inpatient (IN) | payer MEDICARE, OTHER ==
[~2019-11-03 09:53] MED LIST changes: -Carvedilol TAB* 6.25 MG PO ONE; -Furosemide IV* 10 MG/ML VIAL (40 MG) IV ONE; +ZOSYN 3.375 GM x ONE DOSE over 30 miuntes IVPB
[2019-11-03] MEDS ORDERED: Furosemide IV* 10 MG/ML VIAL (40 MG) IV ONE (10:00)
[2019-11-03] MEDS ORDERED: cefTRIAXone(*) 1 GM in NS 0.9% 50 ML* 50 ML IVPB ONE (10:09)
--- NOTE | 2019-11-03 10:16 | ED ---
HPI Chest Pain - HPI Summary HPI Summary: The pt is an 84 yr old female [facility]/o chest pain and SOB beginning 1.5 hours PIZZA DELIVERY and productive cough beginning 1 day PIZZA DELIVERY. She notes that today she couldnt breathe at all so her called the ambulance. Per the EMS, the pt has cardiac history and is on rehab for a recent cardiac event. Level 5 Caveat. Pt is unable to provide a good history. - History of Current Complaint Hx Obtained From: Patient Hx From Patient Unobtainable Due To: Other - Level 5 Caveat. Pt is unable to provide good history. Hx Last Menstrual Period: years ago. Onset/Duration: Started Hours Ago, Still Present Timing: Constant, Lasting Hours Initial Severity: Severe Current Severity: Severe Pain Intensity: 6 Pain Scale Used: 0-10 Numeric Chest Pain Location: Diffuse Character: Cough, Non-Productive Aggravating Factor(s): Nothing Alleviating Factor(s): Nothing Associated Signs and Symptoms: Positive: Chest Pain, Shortness of Breath, Productive Cough - Additional Pertinent History Primary Care Physician: MELQUIADES - Allergy/Home Medications Allergies/Adverse Reactions: Allergies Allergy/AdvReac Type Severity Reaction Status Date / Time nut - unspecified Allergy Severe Hives/Diff. Verified 09/02/19 15:31 Breathing/I tching monosodium glutamate AdvReac Mild headache, Verified 09/02/19 15:31 jitters cephalexin AdvReac GI Upset Verified 09/02/19 15:31 ibuprofen AdvReac Nausea Verified 09/02/19 15:31 CHESTNUTS Allergy Severe LIPS SWELL Uncoded 06/16/19 16:12 AND ARE VERY PAINFUL METALS Allergy Unknown Rash Uncoded 06/16/19 16:12 SEASONAL Allergy STUFFY Uncoded 06/16/19 16:12 HAYFEVER/ENVIRONMENTAL NOSE, WATERY EYES Home Medications: Home Medications Calcium Carbonate/Vitamin D3 [Caltrate 600+D] 1 chw PO BID 11/03/19 [History Confirmed 11/03/19] PMH/Surg Hx/FS Hx/Imm Hx Endocrine/Hematology History: Reports: Hx Anticoagulant Therapy, Hx Anemia - RECIEVED IRON INFUSIONS IN PAST Denies: Hx Diabetes, Hx Thyroid Disease Cardiovascular History: Reports: Hx Angina - RARELY USES NITRO, Hx Cardiomegaly , Hx Congestive Heart Failure, Hx Coronary Artery Disease - ON MED, Hx Hypercholesterolemia, Hx Hypotension - current, Hx Myocardial Infarction - 2015 , Hx Peripheral Vascular Disease, 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 godwin left carotid artery 2013 right carot Denies: Hx Deep Vein Thrombosis, Hx Hypertension, Hx Pacemaker/ICD Respiratory History: Reports: Hx Asthma - POSSIBLY IN THE PAST, Hx Pneumonia Denies: Hx Chronic Obstructive Pulmonary Disease (COPD), Hx Lung Cancer GI History: Reports: Other GI Disorders - CHRONIC CONSTIPATION-TAKES LAXATIVE DAILY peg tube 03/12/18 Denies: Hx Gall Bladder Disease, Hx Gastroesophageal Reflux Disease, Hx Gastrointestinal Bleed, Hx Ulcer, Hx Urosepsis History: Reports: Hx Chronic Renal Failure Denies: Hx Dialysis, Hx Kidney Stones, Hx Renal Disease, Other Problems/ Disorders Musculoskeletal History: Reports: Hx Arthritis - HANDS & FEET, Hx Fibromyalgia, Hx Osteoporosis Denies: Hx Rheumatoid Arthritis Sensory History: Reports: Hx Cataracts - BILAT, Hx Contacts or Glasses Denies: Hx Legally Blind, Hx Deafness, Hx Hearing Aid Opthamlomology History: Reports: Hx Cataracts - BILAT, Hx Contacts or Glasses Denies: Hx Legally Blind Neurological History: Reports: Hx Dementia - vascular dementia, Hx Headaches - TAKES TRAMADOL PRN, Hx Migraine - last episode 1 yr ago 2016, Hx Nerve Disease - see below, Other Neuro Impairments/Disorders - 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 type. Hx Chemotherapy: No Hx Radiation Therapy: No - Surgical History Surgery Procedure, Year, and Place: Hysterectomy, 1983, [facility]. Choleycystectomy, 1993, [facility]. nose surgery .DR CHIN. FERNANDO.Femoral bypass, 1996, [facility]. Left carotid endardectomy 2013. Right first toe, first joint replacement, 2005, [facility]. LIGATION OF ETHMOIDAL INTERNAL MAXILIARY ARTERIES 2007. MYLEOGRAM. LASER SURGERY FOR EPISTAXIS X 6 OVER PAST 10 YEARS. RIGHT CAROTID ENDARECTOMY 03/01/18 [facility]. PEG TUBE INSERTION 03/12/18 [facility]. NASAL EPISTAXIS [facility] DR. CHIN Anesthesia Reactions: No - Immunization History Date of Tetanus Vaccine: up to date Date of Influenza Vaccine: up to date Infectious Disease History: Denies: Hx Clostridium Difficile, Hx Hepatitis, Hx Human Immunodeficiency Virus (HIV), Hx of Known/Suspected MRSA, Hx Shingles, Hx Tuberculosis, Hx Known/ Suspected VRE, Hx Known/Suspected VRSA, History Other Infectious Disease - Family History Known Family History: Positive: Hypertension Negative: Cardiac Disease - Social History Alcohol Use: None Alcohol Amount: a glass of wine a few times a week Hx Substance Use: No Substance Use Type: Reports: None Hx Tobacco Use: Yes Smoking Status (MU): Former Smoker Type: Cigarettes Amount Used/How Often: 1 PPD Length of Time of Smoking/Using Tobacco: 47 YEARS Have You Smoked in the Last Year: No Review of Systems Positive: Chest Pain Positive: Shortness Of Breath, Cough All Other Systems Reviewed And Are Negative: No - Comments Additional Review of Systems Comments: Level 5 Caveat. Pt is unable to provide good history. Physical Exam - Summary Physical Exam Summary: VITAL SIGNS: Reviewed. GENERAL: Patient is a old, thin, ill-looking female in severe respiratory distress and unable to speak in full sentences. Clammy, diaphoretic. HEAD AND FACE: No signs of trauma. No ecchymosis, hematomas or skull depressions. No sinus tenderness. EYES: PERRLA, EOMI x 2, No injected conjunctiva, no nystagmus. EARS: Hearing grossly intact. Ear canals and tympanic membranes are within normal limits. MOUTH: Oropharynx within normal limits. NECK: Supple, trachea is midline, no adenopathy, no JVD, no carotid bruit, no c- spine tenderness, neck with full ROM. CHEST: Symmetric, no tenderness at palpation. LUNGS: Bilateral crackles diffuse in both lungs. CVS: tachycardic, hypotensive, S1 and S2 present, no murmurs or gallops appreciated. ABDOMEN: Soft, non-tender. No signs of distention. No rebound, no guarding, and no masses palpated. Bowel sounds are normal. EXTREMITIES: FROM in all major joints, no edema, no cyanosis or clubbing. NEURO: Alert and oriented x 3. No acute neurological deficits. Speech is normal and follows commands. SKIN: Dry and warm. Triage Information Reviewed: Yes Vital Signs Reviewed: Yes Completion Of Physical Exam Limited Due To: Level 5 - Level 5 Caveat. Pt is unable to provide good history. Procedures - Sedation Patient Received Moderate/Deep Sedation with Procedure: No Diagnostics - Laboratory Result Diagrams: 11/04/19 05:39 11/04/19 05:39 Lab Statement: Any lab studies that have been ordered have been reviewed, and results considered in the medical decision making process. - EKG 0951 Cardiac Rate: Tachycardia EKG Rhythm: Sinus Tachycardia Summary of EKG Findings: EKG done at 0951 reveals Sinus Tachycardia @ 133 bpm and LBBB. Re-Evaluation - Re-Evaluation First Eval Re-Evaluation Time: 10:37 Comment: Pt states "I don't know" and then "yes" to intubation. Dr. Shaikh was consulted regarding the pt's case. Second Eval Re-Evaluation Time: 10:55 Comment: Have not been able to reach Pt's over the telepone. Spoke with ANP Ana Ball who informed that the pt is DNR and DNI. Third Eval Re-Evaluation Time: 12:05 Comment: Pt's Dawit Gutierrez was spoken to over the phone and confirmed her DNI/DNR status. Chest Pain Course/Dx - Course Assessment/Plan: The pt is an 84 yr old female [facility] c/o chest pain and SOB beginning 1.5 hours PIZZA DELIVERY and productive cough beginning 1 day PIZZA DELIVERY. She notes that today she couldnt breathe at all so her called the ambulance. Per the EMS, the pt has cardiac history and is on rehab for a recent cardiac event. Level 5 Caveat. Pt is unable to provide a good history. Past medical history: Left bundle branch block, CHF, hypertension, dyslipidemia, GERD, AK, prolonged QT, multiple myeloma, frequent UTIs, peripheral vascular disease, Iron deficiency anemia, polymyalgia rheumatica, dementia, hypertensive encephalopathy, CVA, delirium, CAD, Subclavian steal syndrome, ventricular tachycardia. Blood work without a significant abnormality except for WBCs of 15.1, BUN is 28, creatinine 1.53, lactic acid is 5.2, glucose 21, troponin 0.09 , CRP of 33, BNP >1300. In the ED course the patient is in respiratory distress therefore the patient was placed in a BiPAP, the patient seems to be overloaded therefore I did not start the patient with IV fluids 30 ccs per KG. However I did give the patient Rocephin. Chest x-ray impression: No acute acute pulmonary process and the x-ray. I ordered for the patient Lasix and nitroglycerin IV. The patient had an episode of bowel movement which she was melena. EKG shows a left frontal branch block and I think that the patient has positive his sgarbossa criteria. I discussed the case with Dr. Valle from cardiology and he recommended to run the case by Dr. Shaikh. I also discussed the case with Dr. Shaikh and since the patient is DNR/DNI she would not be a good candidate for any intervention. I asked the patient multiple times about the status of DNR and DNI and the only answer she offered multiple times was I do not know. I attempted to reach around the hospital multiple times at his phone # [phone] but there was no answer. Guaiac is positive. At this time I discussed with Mr. Gutierrez the patients and he reports that the patient is DNR/DNI, and she does not have any extreme measures to be comfortable the patient. Therefore. at this time I discussed my physical exam and findings with Dr. Dumont from the ICU and she requests for the patient to be admitted to the hospitalist services. I discussed my physical exam and findings with Dr. Duckworth from the hospitalist services and she accepted the patient for admission. - Chest Pain Differential Diagnosis/HQI/PQRI: Acute AK, ACS, Angina, CHF, Chest Wall, GI Disease, Lower Respiratory Infection, Pulmonary Edema - Diagnoses Provider Diagnoses: GI bleed, LBBB (left bundle branch block), CHF (congestive heart failure), NSTEMI (non-ST elevated myocardial infarction) - Provider Notifications Discussed Care Of Patient With: Minna Duckworth - Dr. Duckworth will admit the pt to [facility]. Time Discussed With Above Provider: 12:01 Instructed by Provider To: Admit As Inpatient Discharge ED - Sign-Out/Discharge Documenting (check all that apply): Patient Departure - adm - Discharge Plan Condition: Stable Disposition: ADMITTED TO [facility] - Billing Disposition and Condition Condition: STABLE Disposition: Admitted to [facility] - Attestation Statements Document Initiated by Scribe: Yes Documenting Scribe: Jeffrey Us Provider For Whom Scribe is Documenting (Include Credential): Prieto Bella MD Scribe Attestation: I, Jeffrey Us, scribed for Prieto Bella MD on 11/04/19 at 1551. Scribe Documentation Reviewed: Yes Provider Attestation: The documentation as recorded by the scribe, Jeffrey Us accurately reflects the service I personally performed and the decisions made by me, Prieto Bella MD Status of Scribe Document: Viewed
[2019-11-03 10:17] LABS: ABS Basophils 0.1 10^3/ul (0-0.2); ABS Eosinophils 0.3 10^3/ul (0-0.6); ABS Lymphocytes 1.8 10^3/ul (1.0-4.8); ABS Monocytes 1.2 10^3/ul (0-0.8); ABS Neutrophils 12.2 10^3/ul (1.5-7.7); Eosinophil % 1.7 %; Hematocrit 43 % (35-47); Hemoglobin 13.5 g/dL (12.0-16.0); Lymphocyte % 11.3 %; Mean Corpuscular HGB Conc 31 g/dL (31-36); Mean Corpuscular Hemoglobin 30 pg (27-31); Mean Corpuscular Volume 97 fL (80-97); Mean Platelet Volume 10.1 fL (7.4-10.4); Nucleated Red Blood Cells % 0.1; Platelet Count 238 10^3/uL (150-450); Red Cell Distribution Width 19 % (10-15); White Blood Count 15.5 10^3/uL (3.5-10.8)
[2019-11-03 10:25] LABS: Activated Partial Thrombo Time 31.1 seconds (26.0-38.0); INR 0.99 (0.82-1.09)
[2019-11-03] MEDS ORDERED: nitroGLYCERIN DRIP* 25,000 MCG/250 ML BTL IV ONE (10:28)
[2019-11-03 10:34] LABS: ALT 13 U/L (7-52); Albumin/Globulin Ratio 1.2 (1-3); Alkaline Phosphatase 95 U/L (34-104); BUN/Creatinine Ratio 18.3 (8-20); Blood Urea Nitrogen 28 mg/dL (6-24); C Reactive Protein 33.09 mg/L (<8.01); CO2 Carbon Dioxide 27 mmol/L (22-32); Calcium 9.6 mg/dL (8.6-10.3); Chloride 101 mmol/L (101-111); Creatine Kinase 70 U/L (10-223); EGFR African American 39.2 (>60); EGFR Non-African American 32.4 (>60); Globulin 3.3 g/dL (2-4); Glucose 201 mg/dL (70-100); Sodium 140 mmol/L (135-145); Total Protein 7.3 g/dL (6.4-8.9)
[2019-11-03 10:40] LABS: CKMB ng/mL 3.3 ng/mL (0.6-6.3)
[2019-11-03 10:42] LABS: Troponin I 0.09 ng/mL (<0.03)
[2019-11-03 11:30] LABS: Anion Gap 12 mmol/L (2-11)
[2019-11-03] MEDS ORDERED: Pantoprazole IV* 40 MG IV ONE (11:38)
--- OUTSIDE RECORDS SUMMARY | 2019-11-03 11:59 | XMS REPORT ---
:1935 Author Organization [facility], [facility] Care Team Providers Name Role Phone Unavailable Unavailable Unavailable Problems This patient has no known problems. Allergies, Adverse Reactions, Alerts Allergy Name Allergy Status Severity Reaction(s) Onset Inactive Treating Comments Type Date Date Clinician nut - Unknown Active Unknown Reaction Interface unspecified Unknown 6-04 monosodium Base Active Unknown Reaction Unknown glutamate Ingredient Unknown 6-04 cephalexin Base Active Unknown Reaction Interface Ingredient Unknown 6-04 ibuprofen Base Active Unknown Reaction Interface Ingredient Unknown 6-04 CHESTNUTS Unknown Active Unknown Reaction Interface Unknown 4-08 METALS Unknown Active Unknown Reaction Interface Unknown 4-08 SEASONAL Unknown Active Unknown Reaction Interface HAYFEVER/ENV Unknown 4-08 IRONMENTAL Medications Ordered Filled Start Stop Current Ordering Indication Dosage Frequency Signature Comments Components Medication Medication Date Date Medication? Clinician (SIG) Name Name magnesium magnesium No Unknown Unknown Unknown oxide 400 oxide 400 8-10 mg (241.3 mg (241.3 mg mg magnesium) magnesium) tablet tablet Nitroglycer Nitroglycer No Unknown Unknown Unknown in Tab 0.4 in Tab 0.4 8-10 Mg* Mg* atorvastati atorvastati No Unknown Unknown Unknown n 40 mg n 40 mg 8-10 tablet tablet amiodarone amiodarone No Unknown Unknown Unknown 100 mg 100 mg 3-06 tablet tablet furosemide furosemide No Unknown Unknown Unknown 20 mg 20 mg 5-13 tablet tablet predniSONE predniSONE No Unknown Unknown Unknown 5 mg tablet 5 mg tablet 5-13 Gabapentin Gabapentin No Unknown Unknown Unknown Cap(*) Cap(*) 6-04 clonazePAM clonazePAM No Unknown Unknown Unknown 0.5 mg 0.5 mg 6-04 tablet tablet carvedilol carvedilol No Unknown Unknown Unknown 6.25 mg 6.25 mg 6-04 tablet tablet Acetaminoph Acetaminoph No Unknown Unknown Unknown en Tab* en Tab* 6-04 aspirin 81 aspirin 81 No Unknown Unknown Unknown mg mg 6-04 tablet,jimmy tablet,jimmy yed release yed release ferrous ferrous No Unknown Unknown Unknown sulfate 325 sulfate 325 6-04 mg (65 mg mg (65 mg iron) iron) tablet tablet cyanocobala cyanocobala No Unknown Unknown Unknown min (vit min (vit 6-04 B-12) 500 B-12) 500 mcg tablet mcg tablet escitalopra escitalopra No Unknown Unknown Unknown m 10 mg m 10 mg 6-04 tablet tablet traMADol 50 traMADol 50 No Unknown Unknown Unknown mg tablet mg tablet 04-30 docusate docusate No Unknown Unknown Unknown sodium 100 sodium 100 6-04 mg capsule mg capsule Potassium Potassium No Unknown Unknown Unknown Chloride Chloride 6-04 Quan/D3/Mag1 Quan/D3/Mag1 No Unknown Unknown Unknown 1/Zinc/Head Loft Worker/ 1/Zinc/Head Loft Worker/ 6-04 Shiva/Bor Shiva/Bor L. L. No Unknown Unknown Unknown Acidophilus Acidophilus 04-30 /Pectin, /Pectin, Idabel Idabel pantoprazol pantoprazol No Unknown Unknown Unknown e 40 mg e 40 mg 6-07 tablet,jimmy tablet,jimmy yed release yed release Vital Signs Vital Name Observation Time Observation Value Comments SYSTOLIC mm[Hg] 2019-10-21 18:09:02 160 mm[Hg] mm[Hg] Method: Sit DIASTOLIC mm[Hg] 2019-10-21 18:09:02 57 mm[Hg] mm[Hg] Method: Sit PULSE 2019-10-21 18:09:02 85 /min /min RESP RATE 2019-10-21 18:09:02 17 /min /min Procedures This patient has no known procedures. Results Test Description Test Time Test Comments Text Results Atomic Results Result Comments Laboratory Studies 2019-05-03 05:17:00 Identifier [id number] Result Time Unknown 2019-05-03 05:17:00 Test Item Value Reference Range Comments Unknown (test code = 2951-2) 142 mmol/L Unknown 135-145 F Ordering Physician UnknownLaboratory Niumdtu7188-19-74 05:17:00Identifier [id number]- 6 Result Time 2019-05-03 05:17:00Unknown Test Item Value Reference Range Comments Unknown (test code = 2823-3) 3.6 mmol/L Unknown 3.5-5.0 F Ordering Physician UnknownLaboratory Oyyjkta5293-12-04 05:17:00Identifier [id number]- 6 Result Time 2019-05-03 05:17:00Unknown Test Item Value Reference Range Comments Unknown (test code = 2345-7) 123 mg/dL Unknown 70-100 F Ordering Physician UnknownLaboratory Dushrrq9842-17-87 05:17:00Identifier 06995- 6 Result Time 2019-05-03 05:17:00Unknown Test Item Value Reference Range Comments Unknown (test code = 03162-4) 31.5 Unknown Unknown F Ordering Physician UnknownLaboratory Pquoeuy1188-52-43 05:17:00Identifier 92875- 6 Result Time 2019-05-03 05:17:00Unknown Test Item Value Reference Range Comments Unknown (test code = NullTestCode) 38.2 Unknown Unknown F Ordering Physician UnknownLaboratory Utevlkx2998-14-37 05:17:00Identifier 80625- 6 Result Time 2019-05-03 05:17:00Unknown Test Item Value Reference Range Comments Unknown (test code = 2160-0) 1.57 mg/dL Unknown 0.51-0.95 F Ordering Physician UnknownLaboratory Oclwtwi4586-63-98 05:17:00Identifier 53854- 6 Result Time 2019-05-03 05:17:00Unknown Test Item Value Reference Range Comments Unknown (test code = 2075-0) 105 mmol/L Unknown 101-111 F Ordering Physician UnknownLaboratory Smjhwue5672-65-86 05:17:00Identifier 83800- 6 Result Time 2019-05-03 05:17:00Unknown Test Item Value Reference Range Comments Unknown (test code = 2028-9) 29 mmol/L Unknown 22-32 F Ordering Physician UnknownLaboratory Sojufwt4827-62-81 05:17:00Identifier 06040- 6 Result Time 2019-05-03 05:17:00Unknown Test Item Value Reference Range Comments Unknown (test code = 11950-1) 8.9 mg/dL Unknown 8.6-10.3 F Ordering Physician UnknownLaboratory Fjhjilu1364-11-02 05:17:00Identifier 04135- 6 Result Time 2019-05-03 05:17:00Unknown Test Item Value Reference Range Comments Unknown (test code = 3094-0) 24 mg/dL Unknown 6-24 F Ordering Physician UnknownLaboratory Pskwran0850-58-68 05:17:00Identifier 25600- 6 Result Time 2019-05-03 05:17:00Unknown Test Item Value Reference Range Comments Unknown (test code = 3097-3) 15.3 Unknown 8-20 F Ordering Physician UnknownLaboratory Yqwevke2951-15-23 05:17:00Identifier 70474- 6 Result Time 2019-05-03 05:17:00Unknown Test Item Value Reference Range Comments Unknown (test code = 56423-6) 8 mmol/L Unknown 2-11 F Ordering Physician UnknownLaboratory Ntsoaap6165-85-86 05:17:00Identifier 40457- 6 Result Time 2019-05-03 05:17:00Unknown Test Item Value Reference Range Comments Unknown (test code = 33348-9) 9.3 10^3/uL Unknown 3.5-10.8 F Ordering Physician UnknownLaboratory Kzbxerj0029-27-35 05:17:00Identifier 99650- 6 Result Time 2019-05-03 05:17:00Unknown Test Item Value Reference Range Comments Unknown (test code = 788-0) 19 % Unknown 10-15 F Ordering Physician UnknownLaboratory Llqmsma8583-51-07 05:17:00Identifier 77050- 6 Result Time 2019-05-03 05:17:00Unknown Test Item Value Reference Range Comments Unknown (test code = 789-8) 3.39 10^6 /uL Unknown 3.70-4.87 F Ordering Physician UnknownLaboratory Aediusv5157-01-43 05:17:00Identifier 09180- 6 Result Time 2019-05-03 05:17:00Unknown Test Item Value Reference Range Comments Unknown (test code = 777-3) 181 10^3/uL Unknown 150-450 F Ordering Physician UnknownLaboratory Qdolosm2416-74-88 05:17:00Identifier 71094- 6 Result Time 2019-05-03 05:17:00Unknown Test Item Value Reference Range Comments Unknown (test code = 07061-3) 0.0 Unknown Unknown F Ordering Physician UnknownLaboratory Fvwrabg7150-75-20 05:17:00Identifier 75984- 6 Result Time 2019-05-03 05:17:00Unknown Test Item Value Reference Range Comments Unknown (test code = 771-6) 0.0 10^3/ul Unknown Unknown F Ordering Physician UnknownLaboratory Ayehpdt4510-36-54 05:17:00Identifier 19646- 6 Result Time 2019-05-03 05:17:00Unknown Test Item Value Reference Range Comments Unknown (test code = 770-8) 77.5 % Unknown Unknown F Ordering Physician UnknownLaboratory Htdebpi7412-00-51 05:17:00Identifier 24362- 6 Result Time 2019-05-03 05:17:00Unknown Test Item Value Reference Range Comments Unknown (test code = 5905-5) 9.5 % Unknown Unknown F Ordering Physician UnknownLaboratory Tmshohb1788-51-21 05:17:00Identifier 90933- 6 Result Time 2019-05-03 05:17:00Unknown Test Item Value Reference Range Comments Unknown (test code = 53551-9) 9.8 fL Unknown 7.4-10.4 F Ordering Physician UnknownLaboratory Uhqdpql5292-90-58 05:17:00Identifier 51673- 6 Result Time 2019-05-03 05:17:00Unknown Test Item Value Reference Range Comments Unknown (test code = 787-2) 85 fL Unknown 80-97 F Ordering Physician UnknownLaboratory Whshsla2359-42-78 05:17:00Identifier 10573- 6 Result Time 2019-05-03 05:17:00Unknown Test Item Value Reference Range Comments Unknown (test code = 786-4) 32 g/dL Unknown 31-36 F Ordering Physician UnknownLaboratory Kzmcymm8875-36-65 05:17:00Identifier 75095- 6 Result Time 2019-05-03 05:17:00Unknown Test Item Value Reference Range Comments Unknown (test code = 785-6) 27 pg Unknown 27-31 F Ordering Physician UnknownLaboratory Magfhxr8151-98-59 05:17:00Identifier 99753- 6 Result Time 2019-05-03 05:17:00Unknown Test Item Value Reference Range Comments Unknown (test code = 736-9) 11.2 % Unknown Unknown F Ordering Physician UnknownLaboratory Qqzhmei7001-30-60 05:17:00Identifier 90331- 6 Result Time 2019-05-03 05:17:00Unknown Test Item Value Reference Range Comments Unknown (test code = 718-7) 9.2 g/dL Unknown 12.0-16.0 F Ordering Physician UnknownLaboratory Sbrqhyi3519-64-20 05:17:00Identifier 12904- 6 Result Time 2019-05-03 05:17:00Unknown Test Item Value Reference Range Comments Unknown (test code = 4544-3) 29 % Unknown 35-47 F Ordering Physician UnknownLaboratory Nojmfvj7096-55-11 05:17:00Identifier 92667- 6 Result Time 2019-05-03 05:17:00Unknown Test Item Value Reference Range Comments Unknown (test code = 713-8) 1.4 % Unknown Unknown F Ordering Physician UnknownLaboratory Okzupzu7366-48-11 05:17:00Identifier 69017- 6 Result Time 2019-05-03 05:17:00Unknown Test Item Value Reference Range Comments Unknown (test code = 706-2) 0.4 % Unknown Unknown F Ordering Physician UnknownLaboratory Vdagmit7407-35-53 05:17:00Identifier 87011- 6 Result Time 2019-05-03 05:17:00Unknown Test Item Value Reference Range Comments Unknown (test code = XXI7806) 7.2 10^3/ul Unknown 1.5-7.7 F Ordering Physician UnknownLaboratory Fhaauds6235-57-06 05:17:00Identifier 60933- 6 Result Time 2019-05-03 05:17:00Unknown Test Item Value Reference Range Comments Unknown (test code = 742-7) 0.9 10^3/ul Unknown 0-0.8 F Ordering Physician UnknownLaboratory Qolpafl8377-04-82 05:17:00Identifier 68434- 6 Result Time 2019-05-03 05:17:00Unknown Test Item Value Reference Range Comments Unknown (test code = 731-0) 1.0 10^3/ul Unknown 1.0-4.8 F Ordering Physician UnknownLaboratory Swgdyfz5848-13-39 05:17:00Identifier 34931- 6 Result Time 2019-05-03 05:17:00Unknown Test Item Value Reference Range Comments Unknown (test code = 711-2) 0.1 10^3/ul Unknown 0-0.6 F Ordering Physician UnknownLaboratory Qfllomd6746-40-83 05:17:00Identifier 04787- 6 Result Time 2019-05-03 05:17:00Unknown Test Item Value Reference Range Comments Unknown (test code = 704-7) 0.0 10^3/ul Unknown 0-0.2 F Ordering Physician UnknownLaboratory Ufozmmf7792-22-10 05:41:00Identifier 07438- 6 Result Time 2019-05-01 05:41:00Unknown Test Item Value Reference Range Comments Unknown (test code = 62185-5) 0.06 ng/mL Unknown Unknown F Ordering Physician UnknownLaboratory Dvxzrcs4217-67-81 15:48:00Identifier 14324- 6 Result Time 2019-04-30 15:48:00Unknown Test Item Value Reference Range Comments Unknown (test code = NullTestCode) 7.0 Unknown 5-9 F Ordering Physician UnknownLaboratory Rfjbjum7459-75-30 15:48:00Identifier 27067- 6 Result Time 2019-04-30 15:48:00Unknown Test Item Value Reference Range Comments Unknown (test code = 75823-1) 1.011 Unknown 1.010-1.030 F Ordering Physician UnknownLaboratory Zwvgowe7707-02-40 13:41:00Identifier 59119- 6 Result Time 2019-04-30 13:41:00Unknown Test Item Value Reference Range Comments Unknown (test code = 3016-3) 3.81 mcIU/mL Unknown 0.34-5.60 F Ordering Physician UnknownLaboratory Xrbznhj8383-08-01 13:41:00Identifier 89639- 6 Result Time 2019-04-30 13:41:00Unknown Test Item Value Reference Range Comments Unknown (test code = 40815-7) Unknown Unknown F Ordering Physician UnknownLaboratory Vyejbpi0223-66-26 13:41:00Identifier 48726- 6 Result Time 2019-04-30 13:41:00Unknown Test Item Value Reference Range Comments Unknown (test code = 2885-2) 5.3 g/dL Unknown 6.4-8.9 F Ordering Physician UnknownLaboratory Qutnclr0046-75-66 13:41:00Identifier 36083- 6 Result Time 2019-04-30 13:41:00Unknown Test Item Value Reference Range Comments Unknown (test code = 1975-2) 1.10 mg/dL Unknown 0.2-1.0 F Ordering Physician UnknownLaboratory Vabgmul1060-08-42 13:41:00Identifier 88878- 6 Result Time 2019-04-30 13:41:00Unknown Test Item Value Reference Range Comments Unknown (test code = 64013-5) 1.9 mg/dL Unknown 1.9-2.7 F Ordering Physician UnknownLaboratory Lecnrov9438-59-85 13:41:00Identifier 15129- 6 Result Time 2019-04-30 13:41:00Unknown Test Item Value Reference Range Comments Unknown (test code = NullTestCode) 2.3 g/dL Unknown 2-4 F Ordering Physician UnknownLaboratory Xgsqgbp3188-98-26 13:41:00Identifier 22469- 6 Result Time 2019-04-30 13:41:00Unknown Test Item Value Reference Range Comments Unknown (test code = 1988-5) 26.95 mg/L Unknown 0-8.00 F Ordering Physician UnknownLaboratory Ycraghg1258-23-02 13:41:00Identifier 21133- 6 Result Time 2019-04-30 13:41:00Unknown Test Item Value Reference Range Comments Unknown (test code = 1920-8) 17 U/L Unknown 13-39 F Ordering Physician UnknownLaboratory Bpqwqyw4179-93-78 13:41:00Identifier 74868- 6 Result Time 2019-04-30 13:41:00Unknown Test Item Value Reference Range Comments Unknown (test code = 6768-6) 50 U/L Unknown 34-104 F Ordering Physician UnknownLaboratory Xtuknng7083-37-90 13:41:00Identifier 30710- 6 Result Time 2019-04-30 13:41:00Unknown Test Item Value Reference Range Comments Unknown (test code = 1759-0) 1.3 Unknown 1-3 F Ordering Physician UnknownLaboratory Fhtsvtx8501-09-07 13:41:00Identifier 72564- 6 Result Time 2019-04-30 13:41:00Unknown Test Item Value Reference Range Comments Unknown (test code = 23631-8) 3.0 g/dL Unknown 3.2-5.2 F Ordering Physician UnknownLaboratory Nhjdjrs2382-18-20 13:41:00Identifier 62202- 6 Result Time 2019-04-30 13:41:00Unknown Test Item Value Reference Range Comments Unknown (test code = 1742-6) 10 U/L Unknown 7-52 F Ordering Physician UnknownLaboratory Aesvczf9413-53-85 13:41:00Identifier 10117- 6 Result Time 2019-04-30 13:41:00Unknown Test Item Value Reference Range Comments Unknown (test code = 2524-7) 0.8 mmol/L Unknown 0.5-2.0 F Ordering Physician UnknownLaboratory Kxmagcm4092-57-15 13:41:00Identifier 36204- 6 Result Time 2019-04-30 13:41:00Unknown Test Item Value Reference Range Comments Unknown (test code = 51963-8) 1.03 Unknown 0.82-1.09 F Ordering Physician UnknownLaboratory Lhwtwyu7711-89-73 13:41:00Identifier 84408- 6 Result Time 2019-04-30 13:41:00Unknown Test Item Value Reference Range Comments Unknown (test code = 99700-8) 25.3 seconds Unknown 26.0-38.0 F Ordering Physician UnknownLaboratory Dagvrth4996-53-01 11:00:00Identifier 63697- 6 Result Time 2019-04-25 11:00:00Unknown Test Item Value Reference Range Comments Unknown (test code = 2501-5) Unknown Unknown F Ordering Physician UnknownLaboratory Ktexupi6677-90-60 11:00:00Identifier 18763- 6 Result Time 2019-04-25 11:00:00Unknown Test Item Value Reference Range Comments Unknown (test code = NullTestCode) 4 % Unknown 15-55 F Ordering Physician UnknownLaboratory Knjwmlk7308-12-34 11:00:00Identifier 14241- 6 Result Time 2019-04-25 11:00:00Unknown Test Item Value Reference Range Comments Unknown (test code = 2498-4) Unknown 50-212 F Ordering Physician UnknownLaboratory Jrvhrws8494-74-35 11:00:00Identifier 63794- 6 Result Time 2019-04-25 11:00:00Unknown Test Item Value Reference Range Comments Unknown (test code = 4537-7) 14 mm/Hr Unknown 0-29 F Ordering Physician UnknownLaboratory Lclwsfc9840-95-27 11:00:00Identifier 96528- 6 Result Time 2019-04-25 11:00:00Unknown Test Item Value Reference Range Comments Unknown (test code = NullTestCode) 2.0 Unknown Unknown F Ordering Physician UnknownLaboratory Xfpdnxj2171-66-04 11:00:00Identifier 93270- 6 Result Time 2019-04-25 11:00:00Unknown Test Item Value Reference Range Comments Unknown (test code = 46038-7) 0.90 Unknown Unknown F Ordering Physician UnknownLaboratory Blzsqln3600-76-46 11:00:00Identifier 15356- 6 Result Time 2019-04-25 11:00:00Unknown Test Item Value Reference Range Comments Unknown (test code = 36413-2) 2.9 % Unknown 0.5-1.5 F Ordering Physician UnknownLaboratory Jjravli9258-32-79 11:00:00Identifier 97037- 6 Result Time 2019-04-25 11:00:00Unknown Test Item Value Reference Range Comments Unknown (test code = 789-8) 3.04 10^6/uL Unknown 3.70-4.87 F Ordering Physician UnknownLaboratory Xifduow9948-68-16 11:00:00Identifier 12002- 6 Result Time 2019-04-25 11:00:00Unknown Test Item Value Reference Range Comments Unknown (test code = 96262-5) 107.6 Unknown Unknown F Ordering Physician UnknownLaboratory Gwiigfp8672-93-61 11:00:00Identifier 70336- 6 Result Time 2019-04-25 11:00:00Unknown Test Item Value Reference Range Comments Unknown (test code = 58166-6) 0.48 Unknown Unknown F Ordering Physician UnknownLaboratory Hdrtsny1098-21-30 11:00:00Identifier 18907- 6 Result Time 2019-04-25 11:00:00Unknown Test Item Value Reference Range Comments Unknown (test code = 12429-4) 28 % Unknown 35-47 F Ordering Physician UnknownLaboratory Updjvsr1170-67-75 11:00:00Identifier 90831- 6 Result Time 2019-04-25 11:00:00Unknown Test Item Value Reference Range Comments Unknown (test code = 91103-4) 1.8 % Unknown 0.5-1.5 F Ordering Physician UnknownLaboratory Ikocekd6094-26-55 11:00:00Identifier 93470- 6 Result Time 2019-04-25 11:00:00Unknown Test Item Value Reference Range Comments Unknown (test code = 3034-6) 286 mg/dL Unknown 203-362 F Ordering Physician UnknownLaboratory Dgcezse7574-47-51 11:00:00Identifier 02552- 6 Result Time 2019-04-25 11:00:00Unknown Test Item Value Reference Range Comments Unknown (test code = 2500-7) 400 mcg/dL Unknown 250-450 F Ordering Physician Unknown
--- OUTSIDE RECORDS SUMMARY | 2019-11-03 11:59 | XMS REPORT ---
:1935 Author Organization [facility] Care Team Providers Name Role Phone Unavailable [...] 6-04 Quan/D3/Mag1 Quan/D3/Mag1 No Unknown Unknown Unknown 1/Zinc/Director Of Retail Analytics/ 1/Zinc/Director Of Retail Analytics/ 6-04 Shiva/Bor Shiva/Bor L. L. No Unknown Unknown Unknown Acidophilus Acidophilus 04-30 /Pectin, /Pectin, Devon Devon pantoprazol pantoprazol No Unknown Unknown Unknown e [...] Result Comments Laboratory Studies 2019-05-03 05:17:00 Identifier [id number] Result Time Unknown 2019-05-03 05:17:00 Test Item Value Reference Range Comments Unknown (test code = 2951-2) 142 mmol/L Unknown 135-145 F Ordering Physician UnknownLaboratory Oaymxzz4361-65-50 05:17:00Identifier 55801- 6 Result Time 2019-05-03 05:17:00Unknown Test Item Value Reference Range Comments Unknown (test code = 2823-3) 3.6 mmol/L Unknown 3.5-5.0 F Ordering Physician UnknownLaboratory Vqjvykf4157-48-50 05:17:00Identifier 29359- 6 Result Time 2019-05-03 05:17:00Unknown Test Item Value Reference Range Comments Unknown (test code = 2345-7) 123 mg/dL Unknown 70-100 F Ordering Physician UnknownLaboratory Ayurlbm1806-70-40 05:17:00Identifier 03290- 6 Result Time 2019-05-03 05:17:00Unknown Test Item Value Reference Range Comments Unknown (test code = 18508-4) 31.5 Unknown Unknown F Ordering Physician UnknownLaboratory Bijmsip4875-90-16 05:17:00Identifier 64104- 6 Result Time 2019-05-03 05:17:00Unknown Test Item Value Reference Range Comments Unknown (test code = NullTestCode) 38.2 Unknown Unknown F Ordering Physician UnknownLaboratory Fjudgnh9119-16-91 05:17:00Identifier 40464- 6 Result Time 2019-05-03 05:17:00Unknown Test Item Value Reference Range Comments Unknown (test code = 2160-0) 1.57 mg/dL Unknown 0.51-0.95 F Ordering Physician UnknownLaboratory Mbtbewc1559-12-29 05:17:00Identifier 37207- 6 Result Time 2019-05-03 05:17:00Unknown Test Item Value Reference Range Comments Unknown (test code = 2075-0) 105 mmol/L Unknown 101-111 F Ordering Physician UnknownLaboratory Moetmrx2428-97-81 05:17:00Identifier 72139- 6 Result Time 2019-05-03 05:17:00Unknown Test Item Value Reference Range Comments Unknown (test code = 2028-9) 29 mmol/L Unknown 22-32 F Ordering Physician UnknownLaboratory Hyzownn3675-40-39 05:17:00Identifier 71118- 6 Result Time 2019-05-03 05:17:00Unknown Test Item Value Reference Range Comments Unknown (test code = 58078-5) 8.9 mg/dL Unknown 8.6-10.3 F Ordering Physician UnknownLaboratory Tvckbti6337-88-79 05:17:00Identifier 74011- 6 Result Time 2019-05-03 05:17:00Unknown Test Item Value Reference Range Comments Unknown (test code = 3094-0) 24 mg/dL Unknown 6-24 F Ordering Physician UnknownLaboratory Cpxcknr7895-60-20 05:17:00Identifier 70287- 6 Result Time 2019-05-03 05:17:00Unknown Test Item Value Reference Range Comments Unknown (test code = 3097-3) 15.3 Unknown 8-20 F Ordering Physician UnknownLaboratory Pypmwav3457-32-01 05:17:00Identifier 38170- 6 Result Time 2019-05-03 05:17:00Unknown Test Item Value Reference Range Comments Unknown (test code = 43492-0) 8 mmol/L Unknown 2-11 F Ordering Physician UnknownLaboratory Uaryupv2621-19-69 05:17:00Identifier 63565- 6 Result Time 2019-05-03 05:17:00Unknown Test Item Value Reference Range Comments Unknown (test code = 31333-5) 9.3 10^3/uL Unknown 3.5-10.8 F Ordering Physician UnknownLaboratory Chwsvyf0826-62-08 05:17:00Identifier 46371- 6 Result Time 2019-05-03 05:17:00Unknown Test Item Value Reference Range Comments Unknown (test code = 788-0) 19 % Unknown 10-15 F Ordering Physician UnknownLaboratory Iiupzjo1712-05-70 05:17:00Identifier 31516- 6 Result Time 2019-05-03 05:17:00Unknown Test Item Value Reference Range Comments Unknown (test code = 789-8) 3.39 10^6 /uL Unknown 3.70-4.87 F Ordering Physician UnknownLaboratory Fhbowjb0914-92-19 05:17:00Identifier 98684- 6 Result Time 2019-05-03 05:17:00Unknown Test Item Value Reference Range Comments Unknown (test code = 777-3) 181 10^3/uL Unknown 150-450 F Ordering Physician UnknownLaboratory Ychafal0631-00-16 05:17:00Identifier 19930- 6 Result Time 2019-05-03 05:17:00Unknown Test Item Value Reference Range Comments Unknown (test code = 83252-5) 0.0 Unknown Unknown F Ordering Physician UnknownLaboratory Jxfizzq1225-30-72 05:17:00Identifier 18342- 6 Result Time 2019-05-03 05:17:00Unknown Test Item Value Reference Range Comments Unknown (test code = 771-6) 0.0 10^3/ul Unknown Unknown F Ordering Physician UnknownLaboratory Mzznowy9605-47-99 05:17:00Identifier 70195- 6 Result Time 2019-05-03 05:17:00Unknown Test Item Value Reference Range Comments Unknown (test code = 770-8) 77.5 % Unknown Unknown F Ordering Physician UnknownLaboratory Cpudmer3857-43-66 05:17:00Identifier 34305- 6 Result Time 2019-05-03 05:17:00Unknown Test Item Value Reference Range Comments Unknown (test code = 5905-5) 9.5 % Unknown Unknown F Ordering Physician UnknownLaboratory Wmfkrkn7899-51-05 05:17:00Identifier 48002- 6 Result Time 2019-05-03 05:17:00Unknown Test Item Value Reference Range Comments Unknown (test code = 28112-7) 9.8 fL Unknown 7.4-10.4 F Ordering Physician UnknownLaboratory Uzbkhdj0610-57-80 05:17:00Identifier 32053- 6 Result Time 2019-05-03 05:17:00Unknown Test Item Value Reference Range Comments Unknown (test code = 787-2) 85 fL Unknown 80-97 F Ordering Physician UnknownLaboratory Gwxzdla9713-75-71 05:17:00Identifier 43065- 6 Result Time 2019-05-03 05:17:00Unknown Test Item Value Reference Range Comments Unknown (test code = 786-4) 32 g/dL Unknown 31-36 F Ordering Physician UnknownLaboratory Ggddphb4654-34-22 05:17:00Identifier 52054- 6 Result Time 2019-05-03 05:17:00Unknown Test Item Value Reference Range Comments Unknown (test code = 785-6) 27 pg Unknown 27-31 F Ordering Physician UnknownLaboratory Gehajde1863-50-25 05:17:00Identifier 76687- 6 Result Time 2019-05-03 05:17:00Unknown Test Item Value Reference Range Comments Unknown (test code = 736-9) 11.2 % Unknown Unknown F Ordering Physician UnknownLaboratory Upiyhkh1945-87-84 05:17:00Identifier 08452- 6 Result Time 2019-05-03 05:17:00Unknown Test Item Value Reference Range Comments Unknown (test code = 718-7) 9.2 g/dL Unknown 12.0-16.0 F Ordering Physician UnknownLaboratory Jskneyz7510-05-71 05:17:00Identifier 43951- 6 Result Time 2019-05-03 05:17:00Unknown Test Item Value Reference Range Comments Unknown (test code = 4544-3) 29 % Unknown 35-47 F Ordering Physician UnknownLaboratory Upmdsdv0025-24-25 05:17:00Identifier 74428- 6 Result Time 2019-05-03 05:17:00Unknown Test Item Value Reference Range Comments Unknown (test code = 713-8) 1.4 % Unknown Unknown F Ordering Physician UnknownLaboratory Twrxtdn7600-12-28 05:17:00Identifier 28284- 6 Result Time 2019-05-03 05:17:00Unknown Test Item Value Reference Range Comments Unknown (test code = 706-2) 0.4 % Unknown Unknown F Ordering Physician UnknownLaboratory Wthsptk0116-76-24 05:17:00Identifier 74390- 6 Result Time 2019-05-03 05:17:00Unknown Test Item Value Reference Range Comments Unknown (test code = KSQ6771) 7.2 10^3/ul Unknown 1.5-7.7 F Ordering Physician UnknownLaboratory Xbyytpy4541-37-50 05:17:00Identifier 78448- 6 Result Time 2019-05-03 05:17:00Unknown Test Item Value Reference Range Comments Unknown (test code = 742-7) 0.9 10^3/ul Unknown 0-0.8 F Ordering Physician UnknownLaboratory Oqcnxjd5801-77-20 05:17:00Identifier 14227- 6 Result Time 2019-05-03 05:17:00Unknown Test Item Value Reference Range Comments Unknown (test code = 731-0) 1.0 10^3/ul Unknown 1.0-4.8 F Ordering Physician UnknownLaboratory Hqvxbqo6718-24-05 05:17:00Identifier 30532- 6 Result Time 2019-05-03 05:17:00Unknown Test Item Value Reference Range Comments Unknown (test code = 711-2) 0.1 10^3/ul Unknown 0-0.6 F Ordering Physician UnknownLaboratory Jjnbckk9007-27-90 05:17:00Identifier 89444- 6 Result Time 2019-05-03 05:17:00Unknown Test Item Value Reference Range Comments Unknown (test code = 704-7) 0.0 10^3/ul Unknown 0-0.2 F Ordering Physician UnknownLaboratory Zkeytzl7509-27-79 05:41:00Identifier 56275- 6 Result Time 2019-05-01 05:41:00Unknown Test Item Value Reference Range Comments Unknown (test code = 75057-2) 0.06 ng/mL Unknown Unknown F Ordering Physician UnknownLaboratory Jupndfg0238-98-83 15:48:00Identifier 69736- 6 Result Time 2019-04-30 15:48:00Unknown Test Item Value Reference Range Comments Unknown (test code = NullTestCode) 7.0 Unknown 5-9 F Ordering Physician UnknownLaboratory Dzbcfyc5094-72-82 15:48:00Identifier 76756- 6 Result Time 2019-04-30 15:48:00Unknown Test Item Value Reference Range Comments Unknown (test code = 32972-1) 1.011 Unknown 1.010-1.030 F Ordering Physician UnknownLaboratory Wxrunmb2873-63-39 13:41:00Identifier 64181- 6 Result Time 2019-04-30 13:41:00Unknown Test Item Value Reference Range Comments Unknown (test code = 3016-3) 3.81 mcIU/mL Unknown 0.34-5.60 F Ordering Physician UnknownLaboratory Afbinkh4979-55-99 13:41:00Identifier 29844- 6 Result Time 2019-04-30 13:41:00Unknown Test Item Value Reference Range Comments Unknown (test code = 42220-3) Unknown Unknown F Ordering Physician UnknownLaboratory Uvoevkr5649-12-93 13:41:00Identifier 16575- 6 Result Time 2019-04-30 13:41:00Unknown Test Item Value Reference Range Comments Unknown (test code = 2885-2) 5.3 g/dL Unknown 6.4-8.9 F Ordering Physician UnknownLaboratory Otuobfv7602-79-95 13:41:00Identifier 80336- 6 Result Time 2019-04-30 13:41:00Unknown Test Item Value Reference Range Comments Unknown (test code = 1975-2) 1.10 mg/dL Unknown 0.2-1.0 F Ordering Physician UnknownLaboratory Quwrdmy6962-90-71 13:41:00Identifier 48458- 6 Result Time 2019-04-30 13:41:00Unknown Test Item Value Reference Range Comments Unknown (test code = 50253-0) 1.9 mg/dL Unknown 1.9-2.7 F Ordering Physician UnknownLaboratory Fkkrrsi7976-30-46 13:41:00Identifier 72644- 6 Result Time 2019-04-30 13:41:00Unknown Test Item Value Reference Range Comments Unknown (test code = NullTestCode) 2.3 g/dL Unknown 2-4 F Ordering Physician UnknownLaboratory Idcmeid7063-61-62 13:41:00Identifier 45600- 6 Result Time 2019-04-30 13:41:00Unknown Test Item Value Reference Range Comments Unknown (test code = 1988-5) 26.95 mg/L Unknown 0-8.00 F Ordering Physician UnknownLaboratory Rmztzgq7689-51-35 13:41:00Identifier 48916- 6 Result Time 2019-04-30 13:41:00Unknown Test Item Value Reference Range Comments Unknown (test code = 1920-8) 17 U/L Unknown 13-39 F Ordering Physician UnknownLaboratory Oapctry7825-24-71 13:41:00Identifier 55944- 6 Result Time 2019-04-30 13:41:00Unknown Test Item Value Reference Range Comments Unknown (test code = 6768-6) 50 U/L Unknown 34-104 F Ordering Physician UnknownLaboratory Mbpuiqn1608-01-11 13:41:00Identifier 65430- 6 Result Time 2019-04-30 13:41:00Unknown Test Item Value Reference Range Comments Unknown (test code = 1759-0) 1.3 Unknown 1-3 F Ordering Physician UnknownLaboratory Srbycaw2770-69-24 13:41:00Identifier 78601- 6 Result Time 2019-04-30 13:41:00Unknown Test Item Value Reference Range Comments Unknown (test code = 25718-0) 3.0 g/dL Unknown 3.2-5.2 F Ordering Physician UnknownLaboratory Icsovhs0174-89-55 13:41:00Identifier 76596- 6 Result Time 2019-04-30 13:41:00Unknown Test Item Value Reference Range Comments Unknown (test code = 1742-6) 10 U/L Unknown 7-52 F Ordering Physician UnknownLaboratory Yumekpp1554-62-28 13:41:00Identifier 42652- 6 Result Time 2019-04-30 13:41:00Unknown Test Item Value Reference Range Comments Unknown (test code = 2524-7) 0.8 mmol/L Unknown 0.5-2.0 F Ordering Physician UnknownLaboratory Uyphyzj4516-14-61 13:41:00Identifier 29385- 6 Result Time 2019-04-30 13:41:00Unknown Test Item Value Reference Range Comments Unknown (test code = 10784-4) 1.03 Unknown 0.82-1.09 F Ordering Physician UnknownLaboratory Qobjkhi7775-63-08 13:41:00Identifier 67528- 6 Result Time 2019-04-30 13:41:00Unknown Test Item Value Reference Range Comments Unknown (test code = 87939-6) 25.3 seconds Unknown 26.0-38.0 F Ordering Physician UnknownLaboratory Owchmkp2819-95-91 11:00:00Identifier 50748- 6 Result Time 2019-04-25 11:00:00Unknown Test Item Value Reference Range Comments Unknown (test code = 2501-5) Unknown Unknown F Ordering Physician UnknownLaboratory Yuwgemg4176-18-49 11:00:00Identifier 10874- 6 Result Time 2019-04-25 11:00:00Unknown Test Item Value Reference Range Comments Unknown (test code = NullTestCode) 4 % Unknown 15-55 F Ordering Physician UnknownLaboratory Ipybdtb0693-92-01 11:00:00Identifier 74224- 6 Result Time 2019-04-25 11:00:00Unknown Test Item Value Reference Range Comments Unknown (test code = 2498-4) Unknown 50-212 F Ordering Physician UnknownLaboratory Cnpzfij5264-09-74 11:00:00Identifier 58584- 6 Result Time 2019-04-25 11:00:00Unknown Test Item Value Reference Range Comments Unknown (test code = 4537-7) 14 mm/Hr Unknown 0-29 F Ordering Physician UnknownLaboratory Eoslklf3237-94-65 11:00:00Identifier 40056- 6 Result Time 2019-04-25 11:00:00Unknown Test Item Value Reference Range Comments Unknown (test code = NullTestCode) 2.0 Unknown Unknown F Ordering Physician UnknownLaboratory Oboktsi5948-73-23 11:00:00Identifier 14818- 6 Result Time 2019-04-25 11:00:00Unknown Test Item Value Reference Range Comments Unknown (test code = 88816-8) 0.90 Unknown Unknown F Ordering Physician UnknownLaboratory Jndfjoi7934-99-29 11:00:00Identifier 67201- 6 Result Time 2019-04-25 11:00:00Unknown Test Item Value Reference Range Comments Unknown (test code = 64819-9) 2.9 % Unknown 0.5-1.5 F Ordering Physician UnknownLaboratory Nvllgcc7725-24-08 11:00:00Identifier 44084- 6 Result Time 2019-04-25 11:00:00Unknown Test Item Value Reference Range Comments Unknown (test code = 789-8) 3.04 10^6/uL Unknown 3.70-4.87 F Ordering Physician UnknownLaboratory Sxyquyn1189-51-07 11:00:00Identifier 64180- 6 Result Time 2019-04-25 11:00:00Unknown Test Item Value Reference Range Comments Unknown (test code = 54314-8) 107.6 Unknown Unknown F Ordering Physician UnknownLaboratory Znbsral0365-82-74 11:00:00Identifier 84234- 6 Result Time 2019-04-25 11:00:00Unknown Test Item Value Reference Range Comments Unknown (test code = 49118-8) 0.48 Unknown Unknown F Ordering Physician UnknownLaboratory Coigegv1708-54-17 11:00:00Identifier 70135- 6 Result Time 2019-04-25 11:00:00Unknown Test Item Value Reference Range Comments Unknown (test code = 19953-2) 28 % Unknown 35-47 F Ordering Physician UnknownLaboratory Lhraviq3729-87-46 11:00:00Identifier 77286- 6 Result Time 2019-04-25 11:00:00Unknown Test Item Value Reference Range Comments Unknown (test code = 83266-7) 1.8 % Unknown 0.5-1.5 F Ordering Physician UnknownLaboratory Tqiczpf4323-62-86 11:00:00Identifier 31132- 6 Result Time 2019-04-25 11:00:00Unknown Test Item Value Reference Range Comments Unknown (test code = 3034-6) 286 mg/dL Unknown 203-362 F Ordering Physician UnknownLaboratory Shxlqeo6643-04-61 11:00:00Identifier 62231- 6 Result Time 2019-04-25 11:00:00Unknown Test Item Value Reference Range Comments Unknown (test code = 2500-7) 400 mcg/dL Unknown 250-450 F Ordering Physician Unknown
--- OUTSIDE RECORDS SUMMARY | 2019-11-03 12:00 | XMS REPORT ---
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 L. No Unknown Unknown Unknown Acidophilus Acidophilus 04-30 /Pectin, /Pectin, [place] pantoprazol pantoprazol No Unknown Unknown Unknown e [...] Result Comments Laboratory Studies 2019-05-03 05:17:00 Identifier [id number] Result Time Unknown 2019-05-03 05:17:00 Test Item Value Reference Range Comments Unknown (test code = 2951-2) 142 mmol/L Unknown 135-145 F Ordering Physician UnknownLaboratory Fgdwpet9457-43-02 05:17:00Identifier 11461- 6 Result Time 2019-05-03 05:17:00Unknown Test Item Value Reference Range Comments Unknown (test code = 2823-3) 3.6 mmol/L Unknown 3.5-5.0 F Ordering Physician UnknownLaboratory Wfdpgbo8183-51-30 05:17:00Identifier 16011- 6 Result Time 2019-05-03 05:17:00Unknown Test Item Value Reference Range Comments Unknown (test code = 2345-7) 123 mg/dL Unknown 70-100 F Ordering Physician UnknownLaboratory Kjlbjkk3376-22-91 05:17:00Identifier 89690- 6 Result Time 2019-05-03 05:17:00Unknown Test Item Value Reference Range Comments Unknown (test code = 20322-4) 31.5 Unknown Unknown F Ordering Physician UnknownLaboratory Oqgqfig7071-65-59 05:17:00Identifier 85731- 6 Result Time 2019-05-03 05:17:00Unknown Test Item Value Reference Range Comments Unknown (test code = NullTestCode) 38.2 Unknown Unknown F Ordering Physician UnknownLaboratory Hfosorf8589-11-85 05:17:00Identifier 15942- 6 Result Time 2019-05-03 05:17:00Unknown Test Item Value Reference Range Comments Unknown (test code = 2160-0) 1.57 mg/dL Unknown 0.51-0.95 F Ordering Physician UnknownLaboratory Xtznlsp8053-59-88 05:17:00Identifier 32625- 6 Result Time 2019-05-03 05:17:00Unknown Test Item Value Reference Range Comments Unknown (test code = 2075-0) 105 mmol/L Unknown 101-111 F Ordering Physician UnknownLaboratory Plilmrg6973-17-39 05:17:00Identifier 40085- 6 Result Time 2019-05-03 05:17:00Unknown Test Item Value Reference Range Comments Unknown (test code = 2028-9) 29 mmol/L Unknown 22-32 F Ordering Physician UnknownLaboratory Ymjdoqh7019-93-39 05:17:00Identifier 23698- 6 Result Time 2019-05-03 05:17:00Unknown Test Item Value Reference Range Comments Unknown (test code = 05720-2) 8.9 mg/dL Unknown 8.6-10.3 F Ordering Physician UnknownLaboratory Ywvvkhf7656-89-69 05:17:00Identifier 73971- 6 Result Time 2019-05-03 05:17:00Unknown Test Item Value Reference Range Comments Unknown (test code = 3094-0) 24 mg/dL Unknown 6-24 F Ordering Physician UnknownLaboratory Zykdpjr8340-05-71 05:17:00Identifier 19351- 6 Result Time 2019-05-03 05:17:00Unknown Test Item Value Reference Range Comments Unknown (test code = 3097-3) 15.3 Unknown 8-20 F Ordering Physician UnknownLaboratory Zmgqblg9022-53-76 05:17:00Identifier 52500- 6 Result Time 2019-05-03 05:17:00Unknown Test Item Value Reference Range Comments Unknown (test code = 91251-7) 8 mmol/L Unknown 2-11 F Ordering Physician UnknownLaboratory Jngumzv1337-16-47 05:17:00Identifier 50278- 6 Result Time 2019-05-03 05:17:00Unknown Test Item Value Reference Range Comments Unknown (test code = 63825-2) 9.3 10^3/uL Unknown 3.5-10.8 F Ordering Physician UnknownLaboratory Khoqdgc4923-11-50 05:17:00Identifier 95299- 6 Result Time 2019-05-03 05:17:00Unknown Test Item Value Reference Range Comments Unknown (test code = 788-0) 19 % Unknown 10-15 F Ordering Physician UnknownLaboratory Eftbioz5061-84-45 05:17:00Identifier 40926- 6 Result Time 2019-05-03 05:17:00Unknown Test Item Value Reference Range Comments Unknown (test code = 789-8) 3.39 10^6 /uL Unknown 3.70-4.87 F Ordering Physician UnknownLaboratory Nelaxdv4976-74-50 05:17:00Identifier 00823- 6 Result Time 2019-05-03 05:17:00Unknown Test Item Value Reference Range Comments Unknown (test code = 777-3) 181 10^3/uL Unknown 150-450 F Ordering Physician UnknownLaboratory Qcfjauh3625-19-84 05:17:00Identifier 83706- 6 Result Time 2019-05-03 05:17:00Unknown Test Item Value Reference Range Comments Unknown (test code = 77669-5) 0.0 Unknown Unknown F Ordering Physician UnknownLaboratory Zykktwp0188-97-78 05:17:00Identifier 22964- 6 Result Time 2019-05-03 05:17:00Unknown Test Item Value Reference Range Comments Unknown (test code = 771-6) 0.0 10^3/ul Unknown Unknown F Ordering Physician UnknownLaboratory Mikfvwg8387-31-25 05:17:00Identifier 13273- 6 Result Time 2019-05-03 05:17:00Unknown Test Item Value Reference Range Comments Unknown (test code = 770-8) 77.5 % Unknown Unknown F Ordering Physician UnknownLaboratory Ljhpglf1443-82-21 05:17:00Identifier 52303- 6 Result Time 2019-05-03 05:17:00Unknown Test Item Value Reference Range Comments Unknown (test code = 5905-5) 9.5 % Unknown Unknown F Ordering Physician UnknownLaboratory Czotqxj9172-60-52 05:17:00Identifier 02466- 6 Result Time 2019-05-03 05:17:00Unknown Test Item Value Reference Range Comments Unknown (test code = 74519-1) 9.8 fL Unknown 7.4-10.4 F Ordering Physician UnknownLaboratory Oatprgg9216-25-04 05:17:00Identifier 45100- 6 Result Time 2019-05-03 05:17:00Unknown Test Item Value Reference Range Comments Unknown (test code = 787-2) 85 fL Unknown 80-97 F Ordering Physician UnknownLaboratory Zwgvghd6686-97-71 05:17:00Identifier 66729- 6 Result Time 2019-05-03 05:17:00Unknown Test Item Value Reference Range Comments Unknown (test code = 786-4) 32 g/dL Unknown 31-36 F Ordering Physician UnknownLaboratory Qkgsejh2409-45-44 05:17:00Identifier 82099- 6 Result Time 2019-05-03 05:17:00Unknown Test Item Value Reference Range Comments Unknown (test code = 785-6) 27 pg Unknown 27-31 F Ordering Physician UnknownLaboratory Fiapaxw8547-91-30 05:17:00Identifier 81821- 6 Result Time 2019-05-03 05:17:00Unknown Test Item Value Reference Range Comments Unknown (test code = 736-9) 11.2 % Unknown Unknown F Ordering Physician UnknownLaboratory Dqholqx4113-53-40 05:17:00Identifier 21636- 6 Result Time 2019-05-03 05:17:00Unknown Test Item Value Reference Range Comments Unknown (test code = 718-7) 9.2 g/dL Unknown 12.0-16.0 F Ordering Physician UnknownLaboratory Srirovj0651-38-31 05:17:00Identifier 17516- 6 Result Time 2019-05-03 05:17:00Unknown Test Item Value Reference Range Comments Unknown (test code = 4544-3) 29 % Unknown 35-47 F Ordering Physician UnknownLaboratory Dltqhkf2974-78-62 05:17:00Identifier 77891- 6 Result Time 2019-05-03 05:17:00Unknown Test Item Value Reference Range Comments Unknown (test code = 713-8) 1.4 % Unknown Unknown F Ordering Physician UnknownLaboratory Vzadyds6013-02-38 05:17:00Identifier 27303- 6 Result Time 2019-05-03 05:17:00Unknown Test Item Value Reference Range Comments Unknown (test code = 706-2) 0.4 % Unknown Unknown F Ordering Physician UnknownLaboratory Lovftfn5329-60-48 05:17:00Identifier 93876- 6 Result Time 2019-05-03 05:17:00Unknown Test Item Value Reference Range Comments Unknown (test code = SOD3696) 7.2 10^3/ul Unknown 1.5-7.7 F Ordering Physician UnknownLaboratory Ypfsztw8587-94-31 05:17:00Identifier 59307- 6 Result Time 2019-05-03 05:17:00Unknown Test Item Value Reference Range Comments Unknown (test code = 742-7) 0.9 10^3/ul Unknown 0-0.8 F Ordering Physician UnknownLaboratory Wudnjkj4664-92-58 05:17:00Identifier 89924- 6 Result Time 2019-05-03 05:17:00Unknown Test Item Value Reference Range Comments Unknown (test code = 731-0) 1.0 10^3/ul Unknown 1.0-4.8 F Ordering Physician UnknownLaboratory Yjjppiv5025-55-50 05:17:00Identifier 01081- 6 Result Time 2019-05-03 05:17:00Unknown Test Item Value Reference Range Comments Unknown (test code = 711-2) 0.1 10^3/ul Unknown 0-0.6 F Ordering Physician UnknownLaboratory Orhgzjp3222-12-12 05:17:00Identifier 20301- 6 Result Time 2019-05-03 05:17:00Unknown Test Item Value Reference Range Comments Unknown (test code = 704-7) 0.0 10^3/ul Unknown 0-0.2 F Ordering Physician UnknownLaboratory Awnmlkk6956-97-27 05:41:00Identifier 67506- 6 Result Time 2019-05-01 05:41:00Unknown Test Item Value Reference Range Comments Unknown (test code = 16149-2) 0.06 ng/mL Unknown Unknown F Ordering Physician UnknownLaboratory Ccoslim6376-85-38 15:48:00Identifier 27620- 6 Result Time 2019-04-30 15:48:00Unknown Test Item Value Reference Range Comments Unknown (test code = NullTestCode) 7.0 Unknown 5-9 F Ordering Physician UnknownLaboratory Ubxeeuy4177-29-79 15:48:00Identifier 06257- 6 Result Time 2019-04-30 15:48:00Unknown Test Item Value Reference Range Comments Unknown (test code = 99121-5) 1.011 Unknown 1.010-1.030 F Ordering Physician UnknownLaboratory Ogzmwwu7846-94-49 13:41:00Identifier 92654- 6 Result Time 2019-04-30 13:41:00Unknown Test Item Value Reference Range Comments Unknown (test code = 3016-3) 3.81 mcIU/mL Unknown 0.34-5.60 F Ordering Physician UnknownLaboratory Wppuxqc7677-78-64 13:41:00Identifier 24505- 6 Result Time 2019-04-30 13:41:00Unknown Test Item Value Reference Range Comments Unknown (test code = 96102-4) Unknown Unknown F Ordering Physician UnknownLaboratory Yagqwyw8056-55-47 13:41:00Identifier 95957- 6 Result Time 2019-04-30 13:41:00Unknown Test Item Value Reference Range Comments Unknown (test code = 2885-2) 5.3 g/dL Unknown 6.4-8.9 F Ordering Physician UnknownLaboratory Rghahrm3993-94-64 13:41:00Identifier 06602- 6 Result Time 2019-04-30 13:41:00Unknown Test Item Value Reference Range Comments Unknown (test code = 1975-2) 1.10 mg/dL Unknown 0.2-1.0 F Ordering Physician UnknownLaboratory Aerhxro9862-46-90 13:41:00Identifier 80960- 6 Result Time 2019-04-30 13:41:00Unknown Test Item Value Reference Range Comments Unknown (test code = 38590-1) 1.9 mg/dL Unknown 1.9-2.7 F Ordering Physician UnknownLaboratory Aehqfba6898-18-97 13:41:00Identifier 12649- 6 Result Time 2019-04-30 13:41:00Unknown Test Item Value Reference Range Comments Unknown (test code = NullTestCode) 2.3 g/dL Unknown 2-4 F Ordering Physician UnknownLaboratory Tkvtjgg2629-89-27 13:41:00Identifier 55400- 6 Result Time 2019-04-30 13:41:00Unknown Test Item Value Reference Range Comments Unknown (test code = 1988-5) 26.95 mg/L Unknown 0-8.00 F Ordering Physician UnknownLaboratory Sdwzmck7830-24-97 13:41:00Identifier 79403- 6 Result Time 2019-04-30 13:41:00Unknown Test Item Value Reference Range Comments Unknown (test code = 1920-8) 17 U/L Unknown 13-39 F Ordering Physician UnknownLaboratory Npbhpib1057-27-07 13:41:00Identifier 07368- 6 Result Time 2019-04-30 13:41:00Unknown Test Item Value Reference Range Comments Unknown (test code = 6768-6) 50 U/L Unknown 34-104 F Ordering Physician UnknownLaboratory Qnqampv4942-57-20 13:41:00Identifier 23957- 6 Result Time 2019-04-30 13:41:00Unknown Test Item Value Reference Range Comments Unknown (test code = 1759-0) 1.3 Unknown 1-3 F Ordering Physician UnknownLaboratory Ocksoqn7894-34-61 13:41:00Identifier 35454- 6 Result Time 2019-04-30 13:41:00Unknown Test Item Value Reference Range Comments Unknown (test code = 17526-6) 3.0 g/dL Unknown 3.2-5.2 F Ordering Physician UnknownLaboratory Jaifaqh9990-62-39 13:41:00Identifier 26174- 6 Result Time 2019-04-30 13:41:00Unknown Test Item Value Reference Range Comments Unknown (test code = 1742-6) 10 U/L Unknown 7-52 F Ordering Physician UnknownLaboratory Dqxjrtm0455-90-44 13:41:00Identifier 96436- 6 Result Time 2019-04-30 13:41:00Unknown Test Item Value Reference Range Comments Unknown (test code = 2524-7) 0.8 mmol/L Unknown 0.5-2.0 F Ordering Physician UnknownLaboratory Dzgssms2296-05-29 13:41:00Identifier 46452- 6 Result Time 2019-04-30 13:41:00Unknown Test Item Value Reference Range Comments Unknown (test code = 78634-6) 1.03 Unknown 0.82-1.09 F Ordering Physician UnknownLaboratory Pobyjry4554-98-22 13:41:00Identifier 69198- 6 Result Time 2019-04-30 13:41:00Unknown Test Item Value Reference Range Comments Unknown (test code = 36086-1) 25.3 seconds Unknown 26.0-38.0 F Ordering Physician UnknownLaboratory Iyyquyi3031-42-16 11:00:00Identifier 46922- 6 Result Time 2019-04-25 11:00:00Unknown Test Item Value Reference Range Comments Unknown (test code = 2501-5) Unknown Unknown F Ordering Physician UnknownLaboratory Kyexkjc0556-32-90 11:00:00Identifier 13715- 6 Result Time 2019-04-25 11:00:00Unknown Test Item Value Reference Range Comments Unknown (test code = NullTestCode) 4 % Unknown 15-55 F Ordering Physician UnknownLaboratory Fhnkqus3115-48-25 11:00:00Identifier 09749- 6 Result Time 2019-04-25 11:00:00Unknown Test Item Value Reference Range Comments Unknown (test code = 2498-4) Unknown 50-212 F Ordering Physician UnknownLaboratory Hzlzaqr0168-63-24 11:00:00Identifier 03241- 6 Result Time 2019-04-25 11:00:00Unknown Test Item Value Reference Range Comments Unknown (test code = 4537-7) 14 mm/Hr Unknown 0-29 F Ordering Physician UnknownLaboratory Tqecuij3437-88-71 11:00:00Identifier 70592- 6 Result Time 2019-04-25 11:00:00Unknown Test Item Value Reference Range Comments Unknown (test code = NullTestCode) 2.0 Unknown Unknown F Ordering Physician UnknownLaboratory Savrhjw0191-76-80 11:00:00Identifier 43580- 6 Result Time 2019-04-25 11:00:00Unknown Test Item Value Reference Range Comments Unknown (test code = 79180-7) 0.90 Unknown Unknown F Ordering Physician UnknownLaboratory Uytimtj7762-46-90 11:00:00Identifier 63899- 6 Result Time 2019-04-25 11:00:00Unknown Test Item Value Reference Range Comments Unknown (test code = 90033-6) 2.9 % Unknown 0.5-1.5 F Ordering Physician UnknownLaboratory Duduswc5565-58-83 11:00:00Identifier 85674- 6 Result Time 2019-04-25 11:00:00Unknown Test Item Value Reference Range Comments Unknown (test code = 789-8) 3.04 10^6/uL Unknown 3.70-4.87 F Ordering Physician UnknownLaboratory Gvyhhlu3635-54-32 11:00:00Identifier 55088- 6 Result Time 2019-04-25 11:00:00Unknown Test Item Value Reference Range Comments Unknown (test code = 64355-3) 107.6 Unknown Unknown F Ordering Physician UnknownLaboratory Onwcqoy9162-12-96 11:00:00Identifier 84454- 6 Result Time 2019-04-25 11:00:00Unknown Test Item Value Reference Range Comments Unknown (test code = 48010-6) 0.48 Unknown Unknown F Ordering Physician UnknownLaboratory Deroquw1537-11-73 11:00:00Identifier 05463- 6 Result Time 2019-04-25 11:00:00Unknown Test Item Value Reference Range Comments Unknown (test code = 74134-1) 28 % Unknown 35-47 F Ordering Physician UnknownLaboratory Pqhbkim7154-23-35 11:00:00Identifier 04690- 6 Result Time 2019-04-25 11:00:00Unknown Test Item Value Reference Range Comments Unknown (test code = 97867-7) 1.8 % Unknown 0.5-1.5 F Ordering Physician UnknownLaboratory Zvsxrrd2681-18-57 11:00:00Identifier 79318- 6 Result Time 2019-04-25 11:00:00Unknown Test Item Value Reference Range Comments Unknown (test code = 3034-6) 286 mg/dL Unknown 203-362 F Ordering Physician UnknownLaboratory Dqlunco1547-86-70 11:00:00Identifier 35076- 6 Result Time 2019-04-25 11:00:00Unknown Test Item Value Reference Range Comments Unknown (test code = 2500-7) 400 mcg/dL Unknown 250-450 F Ordering Physician Unknown
[2019-11-03] MEDS ORDERED: Acetaminophen TAB* 325 MG PO PRN (13:24)
[2019-11-03] MEDS ORDERED: Morphine INJ* 2 MG/ML 1 ML SYRINGE (TWO MG - NEW SYRINGE VERSION) IV PRN (13:24)
[2019-11-03] MEDS ORDERED: Nitroglycerin TAB 0.4 MG* 0.4 MG TAB SL PRN (13:29)
[2019-11-03 14:18] LABS: Potassium Redraw 4.4 mmol/L (3.5-5.0)
--- NOTE | 2019-11-03 15:38 | HP ---
CC: Dr. Anderson; Dr. Pleitez * HISTORY AND PHYSICAL: DATE OF ADMISSION: 11/03/19 PRIMARY CARE PROVIDER: Dr. Anderson. CHIEF CLERK: Dr. Pleitez. CHIEF COMPLAINT: Chest pain. HISTORY OF PRESENT ILLNESS: Sirisha Gutierrez is an 84-year-old female with history of significant dementia; as well as polymyalgia rheumatica, on chronic prednisone; chronic hypoxemic respiratory failure, on oxygen at 3 L; as well as congestive heart failure with EF of 35% to 40%; recent OR for which she was treated conservatively; chronic GI bleed; who was brought into the hospital by the ambulance from home with complaints of chest pain. Apparently, the patient was at her baseline state until today in the morning when she started complaining of chest pain and shortness of breath. The called 911 and sent the patient to the hospital. Here additionally, the patient's was not present by the bedside. She was placed on BiPAP due to hypoxemia and shortness of breath. She complained of chest pain and epigastric pain. At that point, she passed melenic stool that was heme-positive. She was hemodynamically stable, although she was hypoxemic and she required to be placed on BiPAP. Currently, she is being evaluated on BiPAP with the patient's who just arrived by her bedside. The patient's stated that his had gone through chronic GI bleed problem for the first half of 2018 when she needed frequent iron infusions and blood transfusions under direction of Dr. Aguilar. She has not had a transfusion for 5 to 6 months now though. It appears that her chronic GI bleed had stopped. She also had history of recent acute OR in February of 2019, at which point she also developed GI bleed when she was on anticoagulation. At that point, the patient was not a candidate for cardiac catheterization. She was treated conservatively for her GI bleed that recurred later on in the year in April of 2019. At that point, she was also treated conservatively and was deemed not to be a good candidate for any endoscopic procedures. After April 2019, she was hospitalized in August of 2019 after multiple rib fractures from falling. She was discharged to rehabilitation facility on 09/09/19 and then discharged home. At home, although she had been getting weaker after each of her multiple hospital stays this year, she was able to ambulate without assistance to the bathroom and back. She is able to dress herself and feed herself. Her dementia is severe enough that sometimes she forgets her 's name and she does not recognize him. She apparently talks frequently about going to see her mother. She uses oxygen at 3 L at home. The patient stated that today all of a sudden she started complaining of chest pain and appeared short of breath. Her called 911 and sent the patient in the ambulance and himself arrived to the hospital later on. The patient currently is comfortable. She appears slightly lethargic. She is on BiPAP and cannot contribute to the conversation partially due to BiPAP and partially due to her dementia. She denies any pain. We had a long discussion with the patient's , Dawit Gutierrez, her healthcare proxy, about the course of action. At this point, the patient had palliative evaluation in February of 2019 when she had her first heart attack in regards to further possibility of intervention. At this point, the patient's is aware that due to her acute heart attack today and that the patient has concurrent GI bleed, there is no possibility of intervention with aspirin, Plavix, or heparin drip. She also is not a candidate for cardiac catheterization or endoscopic evaluation as it was deemed previously this year. We talked about possibility of comfort care versus continuing on with current BiPAP. The patient's would prefer to continue with further BiPAP and he would prefer for the patient to be admitted to the intensive care unit. He is aware of grave prognosis and that the patient may not do well and soon. He is agreeable to another palliative care consultation. At this point, the patient's EKG showed left bundle-branch block, her troponin is elevated, her lactic is 5, and she has acute melena. She appears comfortable on BiPAP and she is going to be transferred to the intensive care unit from the ED for further evaluation and treatment as per 's request. PAST MEDICAL HISTORY: 1. Acute ikr-UZ-psljgwyhe OR concurrent with GI bleed in February of 2019, treated conservatively. 2. Chronic upper GI bleed, not a candidate for intervention, with recurrent iron transfusions and blood transfusions. 3. History of vascular dementia. 4. Polymyalgia rheumatica, on chronic steroids. 5. Systolic CHF with EF of 35%. 6. Peripheral vascular disease. 7. Coronary artery disease, status post stenting in the past. 8. History of V-tach with cardiac arrest. 9. History of subclavian steal syndrome. 10. Chronic kidney disease, stage 3. 11. History of CVA and complications of carotid endarterectomy. PAST SURGICAL HISTORY: 1. History of bilateral femoral bypass. 2. History of left carotid endarterectomy. 3. Status post cholecystectomy. 4. Bilateral cataract surgery. 5. Tubal ligation. 6. Hysterectomy. HOME MEDICATIONS: Include: 1. Prednisone 5 mg daily. 2. Vitamin B12 1000 mcg daily. 3. Ultram 25 mg b.i.d. 4. Nitroglycerin sublingually on a p.r.n. basis. 5. Melatonin 5 mg at bedtime. 6. Furosemide 20 mg every other day. 7. Ferrous sulfate 325 mg b.i.d. 8. Colace 100 mg daily p.r.n. 9. Acetaminophen on a p.r.n. basis. 10. Clonazepam 1 mg at bedtime p.r.n. 11. Gabapentin 300 mg at bedtime. 12. Calcium carbonate/vitamin D 1 chewable b.i.d. 13. Atorvastatin 40 mg at bedtime. 14. Coreg 1 tablet b.i.d. 3.125 mg. 15. Omeprazole 20 mg b.i.d. 16. Mag-Ox 400 mg daily. 17. Lexapro 10 mg daily. 18. Caltrate/vitamin D 1 tablet b.i.d. 19. Amiodarone 50 mg daily. ALLERGIES: Include NUTS, MONOSODIUM GLUTAMATE, CEPHALEXIN, IBUPROFEN, CHESTNUTS , METALS, seasonal hay fever allergies. FAMILY HISTORY: Father due to an accident. Mother due to natural causes. Daughter with history of lung cancer. SOCIAL HISTORY: The patient has no history of tobacco, alcohol, or drug use. She is with significant dementia and she requires help at home. She lives with her , who is her primary veneer marker and healthcare proxy. She is do not resuscitate and do not intubate. REVIEW OF SYSTEMS: Please see history of present illness. All the remaining review of systems was unobtainable from the patient due to being on BiPAP and due to significant dementia. PHYSICAL EXAMINATION GENERAL: The patient is a pleasant 84-year-old female who is pleasant, smiling to me during the evaluation. She was initially asleep, but she awoke to voice. The patient appears in no acute distress. She recognizes her today. She is not aware of location and not aware of date. VITAL SIGNS: Blood pressure of 155/98, heart rate of 96 and regular, respiratory rate 24, oxygen saturation 96% on BiPAP at 90%, temperature of 98.8. HEENT: Head: Atraumatic, normocephalic. Eyes: Pupils are uneven with the right pupil being more pinpoint, the left pupil being 2 mm, both reactive to light. Oropharynx is clear. Mucosa moist. NECK: Supple. No JVD. No bruits bilaterally. RESPIRATORY: Grossly clear breath sounds bilaterally. CARDIOVASCULAR: Regular rate and rhythm. No murmur. ABDOMEN: Soft, nontender. Bowel sounds are present in all 4 quadrants. EXTREMITIES: There is no edema. Pulses are +2 bilaterally. No clubbing or cyanosis. NEURO EVALUATION: Face symmetrical. Cranial nerves II through XII grossly intact. Motor strength is 5/5 bilaterally. SKIN: On evaluation of the skin, the patient has ecchymotic areas on the bilateral distal lower extremities in various stages of resolution. DIAGNOSTIC STUDIES/LAB DATA: Sodium of 140, potassium unobtainable, chloride of 101, carbon dioxide 27, BUN 28, creatinine 1.53. Liver function tests: Bilirubin of 1.2, AST unable to obtain, ALT of 13, alkaline phosphatase of 95. . C-reactive protein of 33. Brain natriuretic peptide was above 1300. Lactic acid of 5.2. WBCs 15.5, hemoglobin of 13.5, hematocrit of 43, and platelets of 238. ABG showed pH of 7.29, pCO2 of 54, pO2 of 74, bicarb 23. The patient's EKG showed new left bundle-branch block. The patient's chest x-ray, impression: "No acute cardiopulmonary process by radiograph." ASSESSMENT AND PLAN: 1. Acute myocardial infarction in a patient who presented with chest pain, new left bundle-branch block, and elevated troponin. The patient also had history of coronary artery disease and recent rgr-LQ-tskiqupab myocardial infarction in February of 2019 that was not intervened to. At this point due to her acute gastrointestinal bleed, she is not a candidate for antiplatelet treatment or heparin drip. At this point, she is going to be treated with pain control. We will follow up with the patient's troponins and continue on telemetry monitored bed. A transthoracic echocardiogram is going to be obtained in the morning. We will also ask for an official palliative care consult in hopes to further determine goals of care. 2. The patient suffered from acute respiratory failure and needed to be placed on BiPAP. It is likely due to myocardial infarction. Her chest x-ray appears grossly clear, although her brain natriuretic peptide is elevated. She received a dose of Lasix in the emergency department and she is currently on BiPAP, which hopefully will be able to be discontinued. 3. In regards to the patient's acute gastrointestinal bleed, the patient was not a candidate for endoscopic evaluation prior to her acute heart attack and she is not a candidate at this point either. Her is aware of that. She is going to be placed on Protonix drip. We will continue checking her H and Hs, but so far she does not appear to have any significant anemia. 4. The patient's code status is do not resuscitate and do not intubate, but okay for noninvasive ventilation and that was discussed with the patient's , who agrees with continuation of that. 5. The patient's leukocytosis, elevated lactic acid, and tachycardia are likely due to acute events of acute myocardial infarction and gastrointestinal bleed. She does not appear to be septic and so far there are no sources of sepsis identified. We will obtain a urinalysis to evaluate it further. For the time being, we will institute gentle hydration and follow up with lactic acid later on during the daytime. TIME SPENT: Approximately 75 minutes was spent in room with the patient and the patient's in discussion of care, physical exam, and evaluation. [id number]/[facility] #: [id number] COREY
[2019-11-03] MEDS: Pantoprazole* 80 mg IN NS 80 MG/250 ML BAG IV SCH (16:21)
[2019-11-03] MEDS: Morphine INJ* 2 MG/ML 1 ML SYRINGE (TWO MG - NEW SYRINGE VERSION) IV PRN (17:30)
[2019-11-03 17:36] LABS: Troponin I 0.77 ng/mL (<0.03)
[2019-11-03 19:09] LABS: Urine Appearance Clear; Urine Bilirubin Negative (Negative); Urine Blood 2+ (Negative); Urine Color Yellow; Urine Glucose Negative (Negative); Urine Ketones Negative (Negative); Urine Nitrite Negative (Negative); Urine Protein Negative (Negative); Urine Specific Gravity 1.008 (1.010-1.030); Urine Urobilinogen Negative (Negative)
[2019-11-03 19:20] LABS: Urine Bacteria Absent (Absent); Urine Red Blood Cell 3+(>10/hpf) (Absent); Urine Squamous Epithelial Cell Present (Absent); Urine White Blood Cell Trace(0-5/hpf) (Absent)
[2019-11-04 00:11] LABS: Troponin I 0.54 ng/mL (<0.03)
[2019-11-04] MEDS: Pantoprazole* 80 mg IN NS 80 MG/250 ML BAG IV SCH ×2 (02:30→11:10)
[2019-11-04] MEDS ORDERED: ZOSYN 3.375 GM x ONE DOSE over 30 miuntes IVPB ×2 (03:30)
[2019-11-04] MEDS: Carvedilol TAB* 3.125 MG PO SCH ×4 (04:00→22:30)
[2019-11-04] MEDS: Atorvastatin* 40 MG TAB PO SCH ×3 (04:44→22:30)
[2019-11-04] MEDS: Gabapentin CAP(*) 300 MG PO SCH ×3 (04:46→22:30)
[2019-11-04] MEDS: traMADol TAB* 50 MG PO SCH ×4 (04:47→22:31)
[2019-11-04] MEDS: Metoprolol Tartrate IV* 1 MG/ML 5 ML VIAL IV PRN ×2 (06:03→11:02)
[2019-11-04 06:05] LABS: ABS Eosinophils 0.1 10^3/ul (0-0.6); ABS Lymphocytes 0.8 10^3/ul (1.0-4.8); ABS Monocytes 0.8 10^3/ul (0-0.8); Eosinophil % 0.5 %; Hematocrit 40 % (35-47); Hemoglobin 12.7 g/dL (12.0-16.0); Lymphocyte % 6.2 %; Mean Corpuscular HGB Conc 32 g/dL (31-36); Mean Corpuscular Hemoglobin 30 pg (27-31); Mean Corpuscular Volume 94 fL (80-97); Mean Platelet Volume 9.6 fL (7.4-10.4); Platelet Count 173 10^3/uL (150-450); Red Blood Count 4.22 10^6 /uL (3.70-4.87); Red Cell Distribution Width 18 % (10-15); White Blood Count 13.7 10^3/uL (3.5-10.8)
[2019-11-04 06:19] LABS: Calcium 8.9 mg/dL (8.6-10.3); EGFR African American 35.9 (>60); EGFR Non-African American 29.7 (>60); Potassium 4.3 mmol/L (3.5-5.0)
[2019-11-04] MEDS ORDERED: Zosyn per Pharmacy* NOTE FOLLOW UP PRN (06:43)
[2019-11-04] MEDS ORDERED: ZOSYN 3.375 GM Q8H per EXTENDED INFUSION IVPB SCH ×2 (09:00)
--- NOTE | 2019-11-04 10:14 | ECHO ---
*[facility]* [place] [address] Fax #: [phone] Transthoracic Echocardiogram Patient: Sirisha Gutierrez : 1935 Study Date: 11/04/2019 Age: 84 Gender: F HR: 96 bpm Height: 63 in /160 cm BSA: 1.6 m^2 Weight: 127.7 lb /58.1 kg BMI: 22.7 kg/m^2 *Host Coordinator: Emili Ford *Referring Physician: * Minna Duckworth *Reading Physician: * Xu Valle MD Indications: Chest Pain, unspecified. History: Coronary artery disease. PMH: Myocardial infarction. Risk factors: Femoral bypass. Carotid endarterectomy. Labs, prior tests, procedures, and surgery: Catheterization. There was a stenosis which was treated with a stent. Conclusions Summary: - Left ventricle: Systolic function is moderately reduced. The estimated ejection fraction is 30-35%. - Regional wall motion abnormality: Akinesis of the mid-apical inferior myocardium; mild hypokinesis of the apical anterior, basal inferior, and mid inferolateral myocardium. - Right ventricle: Systolic function is normal. - Mitral valve: The findings are consistent with mild to moderate stenosis. There is mild to moderate regurgitation. The mean diastolic gradient is 12.0 mm Hg. The valve area is 1.2 cm^2. - Aortic valve: There is no evidence of stenosis. - Tricuspid valve: There is trace to mild regurgitation. - Pericardium, extracardiac: There is no significant pericardial effusion. - Compared to study of 03/06/19, the left ventricle function is slightly worse. Study data: Transthoracic echocardiogram. Procedure: Transthoracic echocardiography was performed. Image quality was good. Complete 2D, spectral Doppler, and color flow Doppler. Location: ICU Patient status: Inpatient. Patient room number: 12. Findings Left ventricle: The cavity size is normal. Wall thickness is mildly to moderately increased. Systolic function is moderately reduced. The estimated ejection fraction is 30-35%. Regional wall motion abnormalities: Akinesis of the mid-apical inferior myocardium; mild hypokinesis of the apical anterior, basal inferior, and mid inferolateral myocardium. Doppler parameters are consistent with abnormal left ventricular relaxation (grade 1 diastolic dysfunction). Right ventricle: The cavity size is normal. Wall thickness is normal. Systolic function is normal. Left atrium: The atrium is moderately dilated. Right atrium: The atrium is normal in size. Atrial septum: There is increased thickness of the septum, consistent with lipomatous hypertrophy. Mitral valve: Appears calcified. The leaflets are moderately thickened. The findings are consistent with mild to moderate stenosis. There is mild to moderate regurgitation. Aortic valve: The valve is probably trileaflet. Thickening, consistent with sclerosis. There is no evidence of stenosis. There is trace regurgitation. Tricuspid valve: The leaflets are normal thickness. There is trace to mild regurgitation. Pulmonic valve: The leaflets are normal thickness. There is trace regurgitation. Aorta: Aortic arch not well visualized. Pericardium: There is no significant pericardial effusion. Systemic veins: Inferior vena cava: The vessel is normal in size. Measurements Left ventricle Value Ref Aortic valve continued Value Ref RAF, LAX 4.0 cm 3.8 - Peak grad, S 12.0 mm Hg ----- 5.2 NATAN, VTI 1.53 cm^2 ----- ESD, LAX 3.4 cm 2.2 - NATAN, Vmax 1.41 cm^2 ----- 3.5 AR peak v 4.41 m/sec ----- FS, LAX (L) 15 % 27 - 45 AR PHT 276 ms ----- PW, ED, LAX (H) 1.4 cm 0.6 - AR peak grad 78 mm Hg ----- 0.9 Mitral valve Value Ref LVOT Value Ref Peak E 1.76 m/sec ----- Diam, S 2.00 cm -------- Peak A 2.1 m/sec ----- Area 3.1 cm^2 -------- Decel time 143 ms ----- Peak quentin, S 0.77 m/sec -------- Mean grad, D 12.0 mm Hg ----- Mean grad, S 2 mm Hg -------- Peak grad, D 22.0 mm Hg ----- SV 53 ml -------- Peak E/A ratio 0.8 ----- SV/bsa 33 ml/m^2 -------- ERO, PISA 0.12 cm^2 ----- MR vol, PISA 24 ml ----- Ventricular septum Value Ref MR fraction, PISA 31 % ----- IVS, ED (H) 1.3 cm 0.6 - 0.9 Pulmonic valve Value Ref Peak v, S 0.59 m/sec ----- Right ventricle Value Ref Peak grad, S 1.0 mm Hg ----- RAF, LAX 2.7 cm -------- RAF minor ax, A4C 3.0 cm 1.9 - Tricuspid valve Value Ref mid 3.5 TR peak v (H) 3.91 m/sec <= 2.8 TAPSE, 2D (L) 1.5 cm 1.7 - Peak RV-RA grad, S 61 mm Hg ----- 3.1 Max TR quentin 4.02 m/sec ----- TAPSE, MM (L) 1.5 cm 1.7 - 3.1 Aortic root Value Ref Root diam 2.8 cm <3 .8 Left atrium Value Ref ML dim, A4C 4.6 cm -------- Ascending aorta Value Ref SI dim, A4C 5.9 cm -------- AAo AP diam, S 2.7 cm ----- Vol/bsa, ES, 1-p 34 ml/m^2 11 - 40 AAo AP diam/bsa, S 1.7 cm/m^2 ----- A4C Inferior vena cava Value Ref Right atrium Value Ref Diam 2.1 cm ----- SI dim, ES 4.8 cm 3.4 - 5.3 ML dim, ES, A4C 3.4 cm 2.6 - 4.4 SI dim, ES, A4C 4.8 cm 3.4 - 5.3 SI dim/bsa, ES, 3.0 cm/m^2 1.9 - A4C 3.1 Aortic valve Value Ref Peak v, S 1.72 m/sec -------- VTI, S 34.6 cm -------- Mean grad, S 8.0 mm Hg -------- Legend: (L) and (H) lori values outside specified reference range. Prepared and electronically signed by Xu Valle MD 11/04/2019 10:14
[2019-11-04] MEDS ORDERED: Furosemide IV* 10 MG/ML 2 ML VIAL (20 MG) IV ONE (10:27)
[2019-11-04] MEDS ORDERED: Albuterol/Ipratropium NEB.SOL* Albuterol 2.5 MG/Ipratropium 0.5 MG 3 ML INH PRN (10:27)
[2019-11-04] MEDS: Pantoprazole IV* 40 MG IV SCH ×2 (10:47→22:34)
[2019-11-04] MEDS: Amiodarone TAB* 200 MG PO SCH (10:53)
[2019-11-04] MEDS: Escitalopram * 10 MG TAB PO SCH (10:53)
[2019-11-04] MEDS: Morphine INJ* 2 MG/ML 1 ML SYRINGE (TWO MG - NEW SYRINGE VERSION) IV PRN (10:59)
[2019-11-04] MEDS: cefTRIAXone(*) 1 GM in NS 0.9% 50 ML* 50 ML IVPB SCH (11:10)
[2019-11-04] MEDS ORDERED: Nitro 2% OINT* (Nitroglycerin) 1 INCH/PAK PAK TOPICAL ONE (11:37)
--- NOTE | 2019-11-04 12:05 | PN ---
Subjective Date of Service: 11/04/19 Interval History: When being moved from ICU to telem bed pt developed flash pulm edema and angina symptoms again. Treated with morphine, BB, Lasix IV with good results. now appears comfortable on 02 mask at 10 l. denies pain. RN noted pt to cough with clears Objective Active Medications: Acetaminophen (Tylenol Tab*) 650 mg PO Q4H PRN PRN Reason: PAIN-MILD/TEMP >/= 100.4 Albuterol/Ipratropium (Duoneb (Albuterol 2.5 Mg/Ipratropium 0.5 Mg)) 1 neb INH Q4H PRN PRN Reason: SOB/WHEEZING Amiodarone HCl (Cordarone Tab*) 50 mg PO DAILY [facility] Last Admin: 11/04/19 10:53 Dose: 50 mg Atorvastatin Calcium (Lipitor*) 40 mg PO BEDTIME [facility] Last Admin: 11/04/19 04:44 Dose: 40 mg Carvedilol (Coreg Tab*) 3.125 mg PO BID [facility] Last Admin: 11/04/19 11:26 Dose: 3.125 mg Clonazepam (Klonopin Tab(*)) 1 mg PO BEDTIME PRN PRN Reason: ANXIETY Escitalopram Oxalate (Lexapro *) 10 mg PO QAM [facility] Last Admin: 11/04/19 10:53 Dose: 10 mg Furosemide (Lasix Tab*) 20 mg PO EVERY OTHER DAY [facility] Gabapentin (Neurontin Cap(*)) 300 mg PO BEDTIME [facility] Last Admin: 11/04/19 04:46 Dose: 300 mg Ceftriaxone Sodium 1 gm/ (Sodium Chloride) 50 mls @ 100 mls/hr IVPB Q24H [facility] Last Admin: 11/04/19 11:10 Dose: 100 mls/hr Metoprolol Tartrate (Lopressor Iv*) 5 mg IV Q6H PRN PRN Reason: BLOOD PRESSURE Last Admin: 11/04/19 11:02 Dose: 5 mg Morphine Sulfate (Morphine Inj (Syringe))*) 1 mg IV Q2H PRN PRN Reason: PAIN - SEVERE Last Admin: 11/04/19 10:59 Dose: 1 mg Nitroglycerin (Nitroglycerin Tab 0.4 Mg*) 0.4 mg SL Q5M PRN PRN Reason: PAIN - CHEST Last Admin: 11/04/19 11:09 Dose: 0.4 mg Pantoprazole Sodium (Protonix Iv*) 40 mg IV Q12H [facility] Last Admin: 11/04/19 10:47 Dose: 40 mg Prednisone (Deltasone Tab*) 5 mg PO DAILY [facility] Last Admin: 11/04/19 10:52 Dose: 5 mg Tramadol HCl (Ultram*) 25 mg PO BID [facility] Last Admin: 11/04/19 10:52 Dose: 25 mg Vital Signs - 8 hr 11/04/19 11/04/19 11/04/19 04:30 05:00 05:01 Temperature Pulse Rate 95 93 99 Respiratory 16 16 14 Rate Blood Pressure 162/108 173/100 (mmHg) O2 Sat by Pulse 98 98 100 Oximetry 11/04/19 11/04/19 11/04/19 06:00 06:13 07:00 Temperature Pulse Rate 99 83 100 Respiratory 20 38 46 Rate Blood Pressure 124/84 (mmHg) O2 Sat by Pulse 96 89 85 Oximetry 11/04/19 11/04/19 11/04/19 07:02 07:38 07:42 Temperature 97.6 F Pulse Rate 94 Respiratory 34 20 Rate Blood Pressure 132/91 (mmHg) O2 Sat by Pulse 99 Oximetry 11/04/19 11/04/19 11/04/19 08:00 08:50 09:00 Temperature Pulse Rate 95 128 101 Respiratory 22 34 30 Rate Blood Pressure 207/106 139/109 (mmHg) O2 Sat by Pulse 95 86 97 Oximetry 11/04/19 11/04/19 11/04/19 10:00 10:32 10:52 Temperature 97.8 F Pulse Rate 102 121 Respiratory 32 36 28 Rate Blood Pressure 157/105 (mmHg) O2 Sat by Pulse 97 94 Oximetry 11/04/19 11/04/19 10:59 11:15 Temperature Pulse Rate Respiratory 28 Rate Blood Pressure 194/93 (mmHg) O2 Sat by Pulse 94 Oximetry Oxygen Devices in Use Now: Simple Face Mask Appearance: 84 yo f in nAD, AAOx2 Eyes: No Scleral Icterus, PERRLA Ears/Nose/Mouth/Throat: NL Teeth, Lips, Gums, Mucous Membranes Moist Neck: NL Appearance and Movements; NL JVP, Trachea Midline Respiratory: Symmetrical Chest Expansion and Respiratory Effort, - - rales b/l bases Cardiovascular: NL Sounds; No Murmurs; No JVD, RRR Abdominal: NL Sounds; No Tenderness; No Distention Lymphatic: No Cervical Adenopathy Extremities: No Edema Skin: No Rash or Ulcers, No Nodules or Sclerosis Neurological: NL Muscle Strength and Tone Result Diagrams: 11/04/19 05:39 11/04/19 05:39 Microbiology and Other Data: Microbiology 11/03/19 11:20 Aerobic Blood Culture - Preliminary Blood Venous No Growth Day 1 Anaerobic Blood Culture - Preliminary No Growth Day 1 11/03/19 10:22 Aerobic Blood Culture - Preliminary Blood Venous Escherichia Coli Anaerobic Blood Culture - Preliminary No Growth Day 1 11/03/19 17:05 Nasal Screen MRSA (PCR) - Final Nasal Mrsa Detected 11/03/19 10:25 Stool Occult Blood (SARAH) - Final Stool Assess/Plan/Problems-Billing Assessment: Mrs Gutierrez is an 83yo F with PMH of dementia, systolic CHF with EF 35- 40%, HTN, HLD, DJD, PMR, CAD s/p PCI, PVD, h/o Vtach with cardiac arrest, subclavian steal syndrome, CKD stage 3, possible stroke in the setting of CEA; NSTEMI and GI bleed tx conservatively who presented to ED with c/o CP and noted to have melena again and new LBBB consistent with acute VA - Patient Problems (1) Non-ST elevated myocardial infarction Comment: - Pt had CP with elevated troponin and LBB(but apparently has had LBBB in the past) -dx with NSTEMI at admission -Echo shows EF 30% with multiple wall motion abnormalities - Goal BP would be 85-100 systolic in LT arm, which represents 105-120 systolic systemically -no ASA, heparin gtt due to acute GI bleed -cont Coreg and supportive care. (2) GI bleed Comment: Acute , likely upper H/o recurrent GI bleed in the past from -04/2019 Hb stable will switich Protonix gtt to IV BID dose Pt was deemed not to be a procedural candidate for endoscopy back in and 2018 (3) CKD (chronic kidney disease) stage 3, GFR 30-59 ml/min Comment: reat close to baseline but with slight worsening today (4) Chronic systolic heart failure Comment: with pulm edema today will start Imdur Cont Lasix daily CKD limiting the use of diurestics (5) Dementia Comment: -At baseline pt is able to recognize her most of the times, usually pleasant, but had paranoia in the past, ambulated at home with walker - Supportive care (6) Dysphagia Comment: cont full liquids Asked speech therapy to see (7) History of ventricular tachycardia Comment: - With cardiac arrest - Continue amiodarone (8) Polymyalgia rheumatica Comment: - Continue predisone (9) DNR (do not resuscitate) Comment: palliative consult requested (10) Subclavian steal syndrome Comment: accounts for bp differential in arms (11) Blood bacterial culture positive Comment: blood cx from admission positive for E. coli-one of 4 bottles Unknown significance will d/w ID So far no identifiable source will cont Ceftriaxone (12) DVT prophylaxis Comment: - SCDs
[2019-11-04 12:32] LABS: Urine Appearance Cloudy; Urine Bilirubin Negative (Negative); Urine Blood 3+ (Negative); Urine Color Yellow; Urine Glucose Negative (Negative); Urine Ketones Trace (Negative); Urine Nitrite Negative (Negative); Urine Protein Negative (Negative); Urine Specific Gravity 1.014 (1.010-1.030); Urine Urobilinogen Negative (Negative)
--- NOTE | 2019-11-04 12:36 | PN ---
Hospitalist Progress Note Date of Service: 11/04/19 Clinical Assessment (no formal CAT called) Called to see pt who is complaining of CP. Essentially 84F PMH CAD, with known distant STEMI and recent NSTEMI 02/2019 tx conservatively, hx of VTACH, HFrEF EF 30-35%, mod MS/MR, dementia, hx of CVA, chronic GIB on iron transfusion who presented with SOB and CP, new LBBB, likely from ongoing unstable angina vs other ACS of which she is not a candidate for intervention. Also with possible ? UTI on CTX. Pt is evaluated she is AOx1-2 at baseline and follows commands, moving all limbs spontaneously with no obvious defecits, she has distended JVP and has audible wheezing and tachypneic to high 20s, HR is 120s sinus tach, lungs reveal blt crackles and cardiac wheeze. Belly is soft NT ND, ext warm and well perfused with mild non pitting edema An EKG shows unchanged sinus tach with IVCD, LB pattern, TWI in 5,6 and LVH Clinically pt appears to have underlying ischemia and has active cardiac ischmeia and likely flash pulmonary edema at time of my evaluation She improved with Lasix IV, Morphine, Oxygen, IV Metoprolol, and nitroglycerin Her chart was reviewed and she is not a candidate for aggressive interventions from an antiplaltelt or AC standpoint 2/2 to her life threatening chronic GIB. She has adavanced ischemic cardiomyopathy that is not intervenable as well as GIB that has been treated with transfusions, agree with palliative approach and will treat pts current pain with max medical therapy, and morphine, oxygen, Nitrates, Beta blockers--antiplatelts are held. Rest of progress note per Dr. Duckworth
[2019-11-04 12:47] LABS: Urine Bacteria Absent (Absent); Urine Red Blood Cell 3+(>10/hpf) (Absent); Urine Squamous Epithelial Cell Present (Absent); Urine White Blood Cell 3+(>20/hpf) (Absent)
--- NOTE | 2019-11-04 15:01 | CONSULT ---
Palliative / Hospice Consult Ordering Provider: Minna Duckworth - PCPAll Referal Reason: Aftercare/no bowel meds/MS prn - Subjective Code Status: DNR Advance Directives Location: Unable to Locate [facility]OL[facility] Part A Completed: Yes - copy on chart [facility]OL[facility] Part E Completed:: Yes - copy on chart - History or Present Illness History or Present Illness: 84yo female with dementia presents to ER with chest pain, SOB and heme + stools. PMH is significant for polymalgia rheumatica on steroids, chronic hypoxic respiratory failure on 3 liters, CHF 35-40%, recent UT, chronic GI bleed , PVD, CAD s/p stenet, vtach with cardiac arrest, subclavian steal syndrome, CKD stage 3, ? h/o CVA as a complication from carotid endarterectomy. PSHx no tob, no drugs, no etoh, lives with her Dawit (HCP) of 66yrs and has 1 son Ernesto who lives in [place] but works at [employer]. Studies CXR neg, EKG sinus tach, H/H 13.5/43, BUN/Cr 28/1.53, egfr 32.4, lactic acid 5.2, BNP >1300, alb 4, troponin .77, CRP 33.05, INR .99 and BC + E. Coli. Pt admitted with acute NSTEMI, chronic upper GI bleed and flash pulmonary edema. In the past year pt has had 8 ER visits and 6 hospitalizations. Al history is from the pt, and medical record. Lab Values: Abnormal Lab Results 11/03/19 11/03/19 11/03/19 15:01 17:05 18:40 WBC RBC Hgb Hct MCV MCH MCHC RDW Plt Count MPV Neut % (Auto) Lymph % (Auto) [place] % (Auto) Eos % (Auto) Baso % (Auto) Absolute Neuts (auto) Absolute Lymphs (auto) Absolute Monos (auto) Absolute Eos (auto) Absolute Basos (auto) Absolute Nucleated RBC Nucleated RBC % Sodium Potassium Chloride Carbon Dioxide Anion Gap BUN Creatinine Est GFR ( Amer) Est GFR (Non-Af Amer) BUN/Creatinine Ratio Glucose Lactic Acid 0.7 Calcium Troponin I 0.77 H* Urine Color Yellow Urine Appearance Clear Urine pH 5.0 Ur Specific [place] 1.008 L Urine Protein Negative Urine Ketones Negative Urine Blood 2+ A Urine Nitrate Negative Urine Bilirubin Negative Urine Urobilinogen Negative Ur Leukocyte Esterase Negative Urine WBC (Auto) Trace(0-5/hpf) Urine RBC (Auto) 3+(>10/hpf) A Ur Squamous Epith Cells Present A Urine Bacteria Absent Hyaline Casts Urine Glucose Negative 11/03/19 11/04/19 11/04/19 23:43 05:39 05:39 WBC 13.7 H RBC 4.22 Hgb 12.7 Hct 40 MCV 94 MCH 30 MCHC 32 RDW 18 H Plt Count 173 MPV 9.6 Neut % (Auto) 87.5 Lymph % (Auto) 6.2 Webster % (Auto) 5.5 Eos % (Auto) 0.5 Baso % (Auto) 0.3 Absolute Neuts (auto) 12.0 H Absolute Lymphs (auto) 0.8 L Absolute Monos (auto) 0.8 Absolute Eos (auto) 0.1 Absolute Basos (auto) 0.0 Absolute Nucleated RBC 0.0 Nucleated RBC % 0.0 Sodium 143 Potassium 4.3 Chloride 104 Carbon Dioxide 25 Anion Gap 14 H BUN 33 H Creatinine 1.65 H Est GFR ( Amer) 35.9 Est GFR (Non-Af Amer) 29.7 BUN/Creatinine Ratio 20.0 Glucose 86 Lactic Acid Calcium 8.9 Troponin I 0.54 H* Urine Color Urine Appearance Urine pH Ur Specific [place] Urine Protein Urine Ketones Urine Blood Urine Nitrate Urine Bilirubin Urine Urobilinogen Ur Leukocyte Esterase Urine WBC (Auto) Urine RBC (Auto) Ur Squamous Epith Cells Urine Bacteria Hyaline Casts Urine Glucose 11/04/19 10:48 WBC RBC Hgb Hct MCV MCH MCHC RDW Plt Count MPV Neut % (Auto) Lymph % (Auto) [place] % (Auto) Eos % (Auto) Baso % (Auto) Absolute Neuts (auto) Absolute Lymphs (auto) Absolute Monos (auto) Absolute Eos (auto) Absolute Basos (auto) Absolute Nucleated RBC Nucleated RBC % Sodium Potassium Chloride Carbon Dioxide Anion Gap BUN Creatinine Est GFR ( Amer) Est GFR (Non-Af Amer) BUN/Creatinine Ratio Glucose Lactic Acid Calcium Troponin I Urine Color Yellow Urine Appearance Cloudy Urine pH 5.0 Ur Specific [place] 1.014 Urine Protein Negative Urine Ketones Trace A Urine Blood 3+ A Urine Nitrate Negative Urine Bilirubin Negative Urine Urobilinogen Negative Ur Leukocyte Esterase 2+ A Urine WBC (Auto) 3+(>20/hpf) A Urine RBC (Auto) 3+(>10/hpf) A Ur Squamous Epith Cells Present A Urine Bacteria Absent Hyaline Casts Present A Urine Glucose Negative Laboratory Last Values WBC 13.7 10^3/uL (3.5-10.8) H 11/04/19 05:39 RBC 4.22 10^6 /uL (3.70-4.87) 11/04/19 05:39 Hgb 12.7 g/dL (12.0-16.0) 11/04/19 05:39 Hct 40 % (35-47) 11/04/19 05:39 MCV 94 fL (80-97) 11/04/19 05:39 MCH 30 pg (27-31) 11/04/19 05:39 MCHC 32 g/dL (31-36) 11/04/19 05:39 RDW 18 % (10-15) H 11/04/19 05:39 Plt Count 173 10^3/uL (150-450) 11/04/19 05:39 MPV 9.6 fL (7.4-10.4) 11/04/19 05:39 Neut % (Auto) 87.5 % 11/04/19 05:39 Lymph % (Auto) 6.2 % 11/04/19 05:39 Webster % (Auto) 5.5 % 11/04/19 05:39 Eos % (Auto) 0.5 % 11/04/19 05:39 Baso % (Auto) 0.3 % 11/04/19 05:39 Absolute Neuts (auto) 12.0 10^3/ul (1.5-7.7) H 11/04/19 05:39 Absolute Lymphs (auto) 0.8 10^3/ul (1.0-4.8) L 11/04/19 05:39 Absolute Monos (auto) 0.8 10^3/ul (0-0.8) 11/04/19 05:39 Absolute Eos (auto) 0.1 10^3/ul (0-0.6) 11/04/19 05:39 Absolute Basos (auto) 0.0 10^3/ul (0-0.2) 11/04/19 05:39 Absolute Nucleated RBC 0.0 10^3/ul 11/04/19 05:39 Nucleated RBC % 0.0 11/04/19 05:39 INR (Anticoag Therapy) 0.99 (0.82-1.09) 11/03/19 10:00 APTT 31.1 seconds (26.0-38.0) 11/03/19 10:00 ABG pH 7.29 (7.35-7.45) L 11/03/19 11:40 ABG pCO2 54 mmHg (35-45) H 11/03/19 11:40 ABG pO2 74 mmHg (80-100) L 11/03/19 11:40 ABG HCO3 23.7 mmol/L (19-31) 11/03/19 11:40 ABG O2 Saturation 95.6 % (94.0-98.0) 11/03/19 11:40 ABG Base Excess -1.4 mmol/L (-2.0-2.0) 11/03/19 11:40 Sodium 143 mmol/L (135-145) 11/04/19 05:39 Potassium 4.3 mmol/L (3.5-5.0) 11/04/19 05:39 Chloride 104 mmol/L (101-111) 11/04/19 05:39 Carbon Dioxide 25 mmol/L (22-32) 11/04/19 05:39 Anion Gap 14 mmol/L (2-11) H 11/04/19 05:39 BUN 33 mg/dL (6-24) H 11/04/19 05:39 Creatinine 1.65 mg/dL (0.51-0.95) H 11/04/19 05:39 Est GFR ( Amer) 35.9 (>60) 11/04/19 05:39 Est GFR (Non-Af Amer) 29.7 (>60) 11/04/19 05:39 BUN/Creatinine Ratio 20.0 (8-20) 11/04/19 05:39 Glucose 86 mg/dL (70-100) 11/04/19 05:39 Lactic Acid 0.7 mmol/L (0.5-2.0) 11/03/19 15:01 Calcium 8.9 mg/dL (8.6-10.3) 11/04/19 05:39 Total Bilirubin 1.20 mg/dL (0.2-1.0) H 11/03/19 10:00 AST 57 U/L (13-39) H 11/03/19 13:57 ALT 13 U/L (7-52) 11/03/19 10:00 Alkaline Phosphatase 95 U/L (34-104) 11/03/19 10:00 Total Creatine Kinase 70 U/L (10-223) 11/03/19 10:00 CK-MB (CK-2) 3.3 ng/mL (0.6-6.3) 11/03/19 10:00 Troponin I 0.54 ng/mL (<0.03) H* 11/03/19 23:43 C-Reactive Protein 33.09 mg/L (<8.01) H 11/03/19 10:00 B-Natriuretic Peptide > 1300 pg/mL (<=100) H 11/03/19 10:00 Total Protein 7.3 g/dL (6.4-8.9) 11/03/19 10:00 Albumin 4.0 g/dL (3.2-5.2) 11/03/19 10:00 Globulin 3.3 g/dL (2-4) 11/03/19 10:00 Albumin/Globulin Ratio 1.2 (1-3) 11/03/19 10:00 Urine Color Yellow 11/04/19 10:48 Urine Appearance Cloudy 11/04/19 10:48 Urine pH 5.0 (5-9) 11/04/19 10:48 Ur Specific [place] 1.014 (1.010-1.030) 11/04/19 10:48 Urine Protein Negative (Negative) 11/04/19 10:48 Urine Ketones Trace (Negative) A 11/04/19 10:48 Urine Blood 3+ (Negative) A 11/04/19 10:48 Urine Nitrate Negative (Negative) 11/04/19 10:48 Urine Bilirubin Negative (Negative) 11/04/19 10:48 Urine Urobilinogen Negative (Negative) 11/04/19 10:48 Ur Leukocyte Esterase 2+ (Negative) A 11/04/19 10:48 Urine WBC (Auto) 3+(>20/hpf) (Absent) A 11/04/19 10:48 Urine RBC (Auto) 3+(>10/hpf) (Absent) A 11/04/19 10:48 Ur Squamous Epith Cells Present (Absent) A 11/04/19 10:48 Urine Bacteria Absent (Absent) 11/04/19 10:48 Hyaline Casts Present (Absent) A 11/04/19 10:48 Urine Glucose Negative (Negative) 11/04/19 10:48 Blood Type O Positive 11/03/19 10:00 Antibody Screen Negative 11/03/19 10:00 - Objective Active Medications: Acetaminophen (Tylenol Tab*) 650 mg PO Q4H PRN PRN Reason: PAIN-MILD/TEMP >/= 100.4 Albuterol/Ipratropium (Duoneb (Albuterol 2.5 Mg/Ipratropium 0.5 Mg)) 1 neb INH Q4H PRN PRN Reason: SOB/WHEEZING Amiodarone HCl (Cordarone Tab*) 50 mg PO DAILY [facility] Last Admin: 11/04/19 10:53 Dose: 50 mg Atorvastatin Calcium (Lipitor*) 40 mg PO BEDTIME [facility] Last Admin: 11/04/19 04:44 Dose: 40 mg Carvedilol (Coreg Tab*) 3.125 mg PO BID [facility] Last Admin: 11/04/19 11:26 Dose: 3.125 mg Clonazepam (Klonopin Tab(*)) 1 mg PO BEDTIME PRN PRN Reason: ANXIETY Escitalopram Oxalate (Lexapro *) 10 mg PO QAM [facility] Last Admin: 11/04/19 10:53 Dose: 10 mg Furosemide (Lasix Tab*) 20 mg PO EVERY OTHER DAY [facility] Gabapentin (Neurontin Cap(*)) 300 mg PO BEDTIME [facility] Last Admin: 11/04/19 04:46 Dose: 300 mg Ceftriaxone Sodium 1 gm/ (Sodium Chloride) 50 mls @ 100 mls/hr IVPB Q24H [facility] Last Admin: 11/04/19 11:10 Dose: 100 mls/hr Metoprolol Tartrate (Lopressor Iv*) 5 mg IV Q6H PRN PRN Reason: BLOOD PRESSURE Last Admin: 11/04/19 11:02 Dose: 5 mg Morphine Sulfate (Morphine Inj (Syringe))*) 1 mg IV Q2H PRN PRN Reason: PAIN - SEVERE Last Admin: 11/04/19 10:59 Dose: 1 mg Nitroglycerin (Nitroglycerin Tab 0.4 Mg*) 0.4 mg SL Q5M PRN PRN Reason: PAIN - CHEST Last Admin: 11/04/19 11:09 Dose: 0.4 mg Pantoprazole Sodium (Protonix Iv*) 40 mg IV Q12H [facility] Last Admin: 11/04/19 10:47 Dose: 40 mg Prednisone (Deltasone Tab*) 5 mg PO DAILY [facility] Last Admin: 11/04/19 10:52 Dose: 5 mg Tramadol HCl (Ultram*) 25 mg PO BID [facility] Last Admin: 11/04/19 10:52 Dose: 25 mg Vital Signs: Vital Signs: Temp Pulse Resp BP Pulse Ox 97.8 F 121 18 167/62 92 11/04/19 10:32 11/04/19 10:32 11/04/19 13:00 11/04/19 12:52 11/04/19 12:53 Patient Weight: Weight 58.3 kg Intake and Output: Intake & Output 11/02/19 11/03/19 11/04/19 11/05/19 06:59 06:59 06:59 06:59 Intake Total 863 480 Output Total 400 1575 Balance 463 -1095 Weight 58.3 kg Intake: IV Fluids 17 NS (0.9%) 17 IVPB 80 NS (0.9%) 80 Medicated IV 366 GEN - Pantoprazole/ 366 Protonix Oral 400 480 Output: [place] 950 Straight Cath 400 Residual 625 [place] 16 Fr Temperature 625 Probe ADLs: Meal Record Start: 11/03/19 14: 54 Freq: 09,13,18 Status: Inactive Protocol: Created 11/03/19 14:54 System (Rec: 11/03/19 14:54 System [id number]) Document 11/03/19 17:19 [id number] (Rec: 11/03/19 17:19 [id number]) ADLs: Meal Record Start: 11/04/19 10: 32 Freq: DAILY@0900,1400,1800 Status: Active Protocol: Created 11/04/19 10:32 [id number] (Rec: 11/04/19 10:32 [id number]) Document 11/04/19 14:00 [id number] (Rec: 11/04/19 14:44 [id number]) Intake and Output Start: 11/03/19 10: 58 Freq: Status: Active Protocol: Created 11/03/19 10:58 System (Rec: 11/03/19 10:58 System [id number]) Intake and Output Start: 11/03/19 14: 54 Freq: 06,14,2200 Status: Inactive Protocol: Created 11/03/19 14:54 System (Rec: 11/03/19 14:54 System [id number]) Document 11/03/19 18:49 [id number] (Rec: 11/03/19 18:49 [id number] ICU-C07) Document 11/03/19 22:00 [id number] (Rec: 11/04/19 00:52 [id number]) Document 11/04/19 06:00 [id number] (Rec: 11/04/19 06:20 [id number] ICU-C06) Intake and Output Start: 11/04/19 10: 32 Freq: DAILY@0600,1400,2200 Status: Active Protocol: Created 11/04/19 10:32 [id number] (Rec: 11/04/19 10:32 [id number]) Eyes: No Scleral Icterus, PERRLA Ears/Nose/Mouth/Throat: NL Teeth, Lips, Gums, Mucous Membranes Moist Neck: NL Appearance and Movements; NL JVP, Trachea Midline Cardiovascular: NL Sounds; No Murmurs; No JVD, RRR Abdominal: NL Sounds; No Tenderness; No Distention Extremities: No Edema Neurological: NL Muscle Strength and Tone, - - AxO x2 - Assessment Assessment: 84yo female with dementia admitted with acute NSTEMI, chronic GI bleed and CHF - Plan Consult Plan (MU): Palliative Plan: Long discussion with pt and her about care going forward. agreed that pt has declined and he doesn't feel he can continue to care for her at home at this time. He is still interested in rehab and would like to pursue [facility] since it's closer to their home. promotion manager informed to send referral. I explained I think pt has weeks to months to live and introduced hospice. Information and brochure was given but I don't think he is interested yet. The plan is to go to [place] with LOBO with hope she may go home although unlikely or be placed there with or without hospice. realizes he would have to let staff at [facility] send referral to hospice if they are interested. To consider adding laxative especially if using the morphine. Pt is eligible for hospice with diagnosis of endstage CHF, CAD, CKD, chronic GI bleed and failure to thrive weight lose over last few months. KPS 50%, PPS 50% - Time On Unit Date of Evaluation: 11/04/19 Hospice Consult Time in: 13:30 Hospice Consult Time Out: 14:30 Hospice Consult Time Total: 60 > 50% of Time Spend In Counseling or Coordinating Care: Yes
[2019-11-04] MEDS ORDERED: Senna TAB 8.6 mg* TAB PO PRN (16:31)
[2019-11-04] MEDS ORDERED: Polyethylene Glycol 3350* 17 GM PACKET PO PRN (16:31)
[2019-11-04] MEDS ORDERED: Magnesium Hydroxide LIQ* 30 ML UDC PO PRN (16:31)
[2019-11-04] MEDS: Docusate CAP* 100 MG PO SCH ×2 (22:05→22:30)
[2019-11-04] MEDS: Magnesium Hydroxide LIQ* 30 ML UDC PO SCH (22:05)
[2019-11-04] MEDS: Melatonin 3 MG TAB PO SCH ×2 (22:05→22:31)
[2019-11-05] MEDS ORDERED: Haloperidol INJ IV/IM* 5 MG/ML AMP IM ONE (01:00)
[2019-11-05] MEDS: Metoprolol Tartrate IV* 1 MG/ML 5 ML VIAL IV PRN (03:25)
[2019-11-05] MEDS: clonazePAM TAB(*) 1 MG PO PRN ×2 (03:26→20:55)
[2019-11-05 08:43] LABS: BUN/Creatinine Ratio 25.2 (8-20); Calcium 8.6 mg/dL (8.6-10.3); EGFR African American 45.3 (>60); EGFR Non-African American 37.5 (>60); Potassium 3.3 mmol/L (3.5-5.0)
[2019-11-05] MEDS ORDERED: Furosemide TAB* 20 MG PO SCH (09:00)
[2019-11-05] MEDS ORDERED: Potassium Chloride* LIQUID 20 MEQ/15 ML UDC PO ONE (09:37)
--- NOTE | 2019-11-05 09:40 | PN ---
Subjective Date of Service: 11/05/19 Interval History: pt was upset and refused vitals last night,today feels tired, but denies CP or SOB Objective Active Medications: Acetaminophen (Tylenol Tab*) 650 mg PO Q4H PRN PRN Reason: PAIN-MILD/TEMP >/= 100.4 Albuterol/Ipratropium (Duoneb (Albuterol 2.5 Mg/Ipratropium 0.5 Mg)) 1 neb INH Q4H PRN PRN Reason: SOB/WHEEZING Amiodarone HCl (Cordarone Tab*) 50 mg PO DAILY [facility] Last Admin: 11/04/19 10:53 Dose: 50 mg Atorvastatin Calcium (Lipitor*) 40 mg PO BEDTIME [facility] Last Admin: 11/04/19 22:30 Dose: Not Given Carvedilol (Coreg Tab*) 6.25 mg PO BID [facility] Clonazepam (Klonopin Tab(*)) 1 mg PO BEDTIME PRN PRN Reason: ANXIETY Last Admin: 11/05/19 03:26 Dose: 1 mg Docusate Sodium (Colace Cap*) 100 mg PO BID [facility] Last Admin: 11/04/19 22:30 Dose: Not Given Escitalopram Oxalate (Lexapro *) 10 mg PO QAM [facility] Last Admin: 11/04/19 10:53 Dose: 10 mg Furosemide (Lasix Tab*) 20 mg PO EVERY OTHER DAY [facility] Gabapentin (Neurontin Cap(*)) 300 mg PO BEDTIME [facility] Last Admin: 11/04/19 22:30 Dose: Not Given Ceftriaxone Sodium 1 gm/ (Sodium Chloride) 50 mls @ 100 mls/hr IVPB Q24H [facility] Last Admin: 11/04/19 11:10 Dose: 100 mls/hr Isosorbide Mononitrate (Imdur Er Tab*) 60 mg PO DAILY [facility] Magnesium Hydroxide (Milk Of Magnesia Liq*) 30 ml PO BID [facility] Last Admin: 11/04/19 22:05 Dose: Not Given Magnesium Hydroxide (Milk Of Magnesia Liq*) 30 ml PO BID PRN PRN Reason: CONSTIPATION Melatonin (Melatonin) 3 mg PO BEDTIME [facility] Last Admin: 11/04/19 22:31 Dose: Not Given Metoprolol Tartrate (Lopressor Iv*) 5 mg IV Q6H PRN PRN Reason: BLOOD PRESSURE Last Admin: 11/05/19 03:25 Dose: 5 mg Morphine Sulfate (Morphine Inj (Syringe))*) 1 mg IV Q2H PRN PRN Reason: PAIN - SEVERE Last Admin: 11/04/19 10:59 Dose: 1 mg Nitroglycerin (Nitroglycerin Tab 0.4 Mg*) 0.4 mg SL Q5M PRN PRN Reason: PAIN - CHEST Last Admin: 11/04/19 11:09 Dose: 0.4 mg Pantoprazole Sodium (Protonix Iv*) 40 mg IV Q12H [facility] Last Admin: 11/04/19 22:34 Dose: Not Given Polyethylene Glycol/Electrolytes (Miralax*) 17 gm PO DAILY PRN PRN Reason: CONSTIPATION Prednisone (Deltasone Tab*) 5 mg PO DAILY [facility] Last Admin: 11/04/19 10:52 Dose: 5 mg Senna (Senokot 8.6 Mg Tab*) 1 tab PO BEDTIME PRN PRN Reason: CONSTIPATION Tramadol HCl (Ultram*) 25 mg PO BID [facility] Last Admin: 11/04/19 22:31 Dose: Not Given Vital Signs - 8 hr 11/05/19 11/05/19 03:15 03:26 Temperature 98.5 F Pulse Rate 103 Respiratory 16 18 Rate Blood Pressure 188/84 (mmHg) O2 Sat by Pulse 77 Oximetry Oxygen Devices in Use Now: Simple Face Mask Appearance: 84 yo F in nAD, aAOx2 Eyes: No Scleral Icterus, PERRLA Ears/Nose/Mouth/Throat: NL Teeth, Lips, Gums, Mucous Membranes Moist Neck: NL Appearance and Movements; NL JVP, Trachea Midline Respiratory: Symmetrical Chest Expansion and Respiratory Effort, Clear to Auscultation Cardiovascular: - - tachy Abdominal: NL Sounds; No Tenderness; No Distention, No Hepatosplenomegaly Lymphatic: No Cervical Adenopathy Extremities: No Edema, No Clubbing, Cyanosis Skin: No Rash or Ulcers, No Nodules or Sclerosis Neurological: NL Muscle Strength and Tone Result Diagrams: 11/04/19 05:39 11/05/19 07:53 Microbiology and Other Data: Microbiology 11/03/19 11:20 Aerobic Blood Culture - Preliminary Blood Venous No Growth Day 1 Anaerobic Blood Culture - Preliminary No Growth Day 1 11/03/19 10:22 Aerobic Blood Culture - Preliminary Blood Venous Escherichia Coli Anaerobic Blood Culture - Preliminary No Growth Day 1 11/03/19 17:05 Nasal Screen MRSA (PCR) - Final Nasal Mrsa Detected 11/03/19 10:25 Stool Occult Blood (SARAH) - Final Stool Assess/Plan/Problems-Billing Assessment: Mrs Gutierrez is an 83yo F with PMH of dementia, systolic CHF with EF 35- 40%, HTN, HLD, DJD, PMR, CAD s/p PCI, PVD, h/o Vtach with cardiac arrest, subclavian steal syndrome, CKD stage 3, possible stroke in the setting of CEA; NSTEMI and GI bleed tx conservatively who presented to ED with c/o CP and noted to have melena again and new LBBB consistent with acute SC - Patient Problems (1) Non-ST elevated myocardial infarction Comment: - Pt had CP with elevated troponin and LBBB(but apparently has had LBBB in the past) -dx with NSTEMI at admission -Echo shows EF 30% with multiple wall motion abnormalities - Goal BP would be 85-100 systolic in LT arm, which represents 105-120 systolic systemically -due to known subclavian steal syndrome on L) -no ASA, heparin gtt due to acute GI bleed -cont Coreg (increasing the dose today due to tachy) and supportive care. (2) GI bleed Comment: Acute , likely upper H/o recurrent GI bleed in the past from -04/2019 Hb stable will switich Protonix gtt to IV BID dose Pt was deemed not to be a procedural candidate for endoscopy back in and 2018 (3) CKD (chronic kidney disease) stage 3, GFR 30-59 ml/min Comment: creat close to baseline (4) Chronic systolic heart failure Comment: Imdur started 11/05/19 Cont Lasix daily CKD limiting the use of diurestics (5) Dementia Comment: -At baseline pt is able to recognize her most of the times, usually pleasant, but had paranoia in the past, ambulated at home with walker - Supportive care (6) [facility] ([facility]) History of ventricular tachycardia Comment: - With cardiac arrest - Continue amiodarone (8) Polymyalgia rheumatica Comment: - Continue predisone (9) DNR (do not resuscitate) Comment: palliative consult appreciated Pt to go to [facility] (10) Subclavian steal syndrome Comment: accounts for bp differential in arms (11) Blood bacterial culture positive Comment: blood cx from admission positive for E. coli-one of 4 bottles Unknown significance will d/w ID So far no identifiable source will cont Ceftriaxone (12) DVT prophylaxis Comment: - SCDs Status and Disposition: inpatient
[2019-11-05 09:46] LABS: ABS Eosinophils 0.1 10^3/ul (0-0.6); ABS Lymphocytes 0.7 10^3/ul (1.0-4.8); ABS Monocytes 0.9 10^3/ul (0-0.8); ABS Neutrophils 9.4 10^3/ul (1.5-7.7); Eosinophil % 0.6 %; Hematocrit 36 % (35-47); Hemoglobin 11.6 g/dL (12.0-16.0); Lymphocyte % 6.1 %; Mean Corpuscular HGB Conc 32 g/dL (31-36); Mean Corpuscular Hemoglobin 30 pg (27-31); Mean Corpuscular Volume 95 fL (80-97); Nucleated Red Blood Cells % 0.1; Platelet Count 161 10^3/uL (150-450); Red Blood Count 3.82 10^6 /uL (3.70-4.87); Red Cell Distribution Width 19 % (10-15)
[2019-11-05] MEDS: Carvedilol TAB* 3.125 MG PO SCH ×3 (09:58→20:55)
[2019-11-05] MEDS: Escitalopram * 10 MG TAB PO SCH (09:58)
[2019-11-05] MEDS: Isosorbide Mononitrate ER TAB* 60 MG PO SCH (09:58)
[2019-11-05] MEDS: traMADol TAB* 50 MG PO SCH ×2 (09:59→20:48)
[2019-11-05] MEDS: Amiodarone TAB* 200 MG PO SCH (09:59)
[2019-11-05] MEDS: Docusate CAP* 100 MG PO SCH ×2 (10:00→20:50)
[2019-11-05] MEDS: Magnesium Hydroxide LIQ* 30 ML UDC PO SCH ×2 (10:02→20:50)
[2019-11-05] MEDS: Pantoprazole IV* 40 MG IV SCH ×2 (10:07→23:47)
[2019-11-05] MEDS: cefTRIAXone(*) 1 GM in NS 0.9% 50 ML* 50 ML IVPB SCH (12:11)
[2019-11-05] MEDS: Melatonin 3 MG TAB PO SCH (20:49)
[2019-11-05] MEDS: Atorvastatin* 40 MG TAB PO SCH (20:49)
[2019-11-05] MEDS: Gabapentin CAP(*) 300 MG PO SCH (20:50)
[2019-11-06] MEDS ORDERED: Furosemide TAB* 20 MG PO SCH (09:00)
[2019-11-06] MEDS: Magnesium Hydroxide LIQ* 30 ML UDC PO SCH (09:18)
[2019-11-06] MEDS: Docusate CAP* 100 MG PO SCH (09:18)
[2019-11-06] MEDS: Carvedilol TAB* 3.125 MG PO SCH (09:18)
[2019-11-06] MEDS: Escitalopram * 10 MG TAB PO SCH (09:19)
[2019-11-06] MEDS: Isosorbide Mononitrate ER TAB* 60 MG PO SCH (09:19)
[2019-11-06] MEDS: Amiodarone TAB* 200 MG PO SCH (09:20)
[2019-11-06] MEDS: traMADol TAB* 50 MG PO SCH (09:21)
[2019-11-06] MEDS: Pantoprazole IV* 40 MG IV SCH (10:33)
[2019-11-06] MEDS: cefTRIAXone(*) 1 GM in NS 0.9% 50 ML* 50 ML IVPB SCH (10:34)
--- NOTE | 2019-11-06 11:23 | DS ---
CC: Dr. Grecia Anderson; [facility] physician; [facility]; Dr. Juan Aguilar * DISCHARGE SUMMARY: DATE OF ADMISSION: 11/03/19 DATE OF DISCHARGE: 11/06/19 PRIMARY CARE PROVIDER: Dr. Grecia Anderson. DISPOSITION AT DISCHARGE: [facility]. CONDITION AT DISCHARGE: Stable, but frail. DISCHARGE DIAGNOSES: 1. Acute [id number]-WK-blgwcqykh myocardial infarction. 2. Acute gastrointestinal bleed with melena, likely upper. 3. Escherichia coli bacteremia likely. The patient had Escherichia coli positive in one of 4 blood culture bottles. SECONDARY DIAGNOSES: 1. Polymyalgia rheumatica, on chronic steroids. 2. History of an acute gtu-AP-fkkmieigw myocardial infarction concurrent with gastrointestinal bleed in February 2019 and during this hospital stay. 3. The patient has chronic recurrent upper gastrointestinal bleeds, not candidate for intervention, transfusion dependent at the beginning of 2018. 4. History of vascular dementia. 5. Systolic congestive heart failure with ejection fraction of 30% to 35%. 6. Peripheral vascular disease. 7. Coronary artery disease, status post stenting in the past. 8. History of ventricular tachycardia arrest in the past. 9. Subclavian steal syndrome. The patient's left-sided blood pressures are much lower than on the right arm. 10. Chronic kidney disease stage 3. 11. History of cerebrovascular accident and complications of carotid endarterectomy. MEDICATIONS AT DISCHARGE: Include: 1. Acetaminophen 650 mg b.i.d. 2. Lipitor 40 mg at bedtime. 3. Calcium, vitamin D3, magnesium, and zinc 1 tablet b.i.d. 4. Calcium carbonate/vitamin D 1 chewable b.i.d. 5. Klonopin 1 mg at bedtime. 6. Vitamin B12 at 1000 mcg daily. 7. Colace 100 mg daily. 8. Lexapro 10 mg daily. 9. Ferrous sulfate 325 mg b.i.d. 10. Neurontin 300 mg at bedtime. 11. Mag-Ox 400 mg daily. 12. Melatonin 5 mg at bedtime. 13. Nitroglycerin 0.4 mg on a p.r.n. basis. 14. Omeprazole 20 mg b.i.d. 15. Ultram 25 mg b.i.d. 16. DuoNeb on a p.r.n. basis. 17. Amiodarone 50 mg daily. 18. Coreg 6.25 mg b.i.d. 19. Cefdinir 300 mg b.i.d. for a total of 7 days and then stop. 20. Lasix 20 mg daily. 21. Imdur 60 mg daily. 22. Prednisone 5 mg daily. 23. Senokot 1 tablet at bedtime. Medications changes include: 1. Increase of Coreg from 3.125 mg to 6.25 mg. 2. Introduction of Imdur, which is new. 3. Furosemide was changed from every other day to 20 mg daily. 4. The patient's prednisone that was reported as taken at home at 10 mg daily, decreased to 5 mg daily. LABORATORY DATA AND STUDIES PERFORMED DURING THE HOSPITAL STAY: Included: On 11/05/19, white blood cell count of 11.0, hemoglobin of 11.6, hematocrit of 36, and platelets of 161. Sodium was 141, potassium 3.3, chloride 105, carbon dioxide 29, BUN 34, creatinine 1.35. The patient's troponin peaked at 0.77. Urinalysis showed cloudy urine, +3 blood, +2 esterase, +3 wbc's, +3 rbc's, and absent bacteria. Transthoracic echocardiogram showed EF of 30% to 35% with akinesis of the mild apical inferior myocardium with mild hypokinesis of the apical anterior, basal inferior and mild inferolateral myocardium. There was moderate regurgitation of the mitral valve. CONSULTATIONS DURING THE HOSPITAL STAY: Included Dr. Ginny Zamora from palliative care. HOSPITALIZATION COURSE: Sirisha Gutierrez is an 84-year-old female with history of dementia with history of recurrent GI bleeds and episodes of myocardial infarctions during the prior year who presented to the hospital complaining of acute chest pain. She also was noted to have melanotic bowel movement in the emergency department which was noted to be heme positive. Nevertheless, her hemoglobin actually was stable, decreasing only slightly by 11/05/19. No further episodes of melanotic stools were noted during the hospital stay. The patient was placed on Protonix drip and later on converted to Protonix twice a day and then back to her omeprazole twice a day. The patient was seen by cryptologic support specialist throughout the past year multiple times and multiple times was deemed not to be a candidate for endoscopic evaluation. Given her acute heart attack, she also was not a procedural candidate and she was treated conservatively for her GI bleed with good results. In regards to her acute CA, the patient had new left bundle-branch block and was noted to have troponin of 0.77 at its maximum with chest pain. She was also noted to be markedly hypertensive and had flash pulmonary edema that required BiPAP overnight in the ICU. Her Lasix was increased to daily. Her Coreg dose was doubled and she was placed on Imdur with good results. On her transfer out of the ICU on 11/04/19, she did not experience any further chest pain and she ambulated with PT well. She continued to require 3 L of oxygen by the time of discharge which is her baseline. Her EF was noted to be 30% to 35% , which is consistent with prior. Due to her acute GI bleed, she was not a candidate for any intervention, or antiplatelet agents. The patient was noted to have abnormal urinalysis, but no bacteria. Her urine cultures were unremarkable, but nevertheless when she had blood cultures obtained on admission and one of the bottles was positive for E. coli. Due to Gram-negative bacteria being very rarely a possibility of contamination, the patient was treated with ceftriaxone for the duration of her hospital stay. She is required to finish her course of 10 days of antibiotic coverage with cefdinir for the remaining 7 days of outpatient treatment. So far, we have not found a source of her infection. Apart from her episode of angina chest pain, she was asymptomatic. She did have urinary retention when she was in respiratory distress and [place] was placed over the course of her hospital stay. That is going to be discontinued by discharge and the patient is going to be discharged to [facility] once she urinates by herself. Due to the patient's recurrent hospitalizations for GI bleed that is not amenable for intervention and acute CA that due to GI bleed is unable to be fully treated, palliative care consult was recommended. Dr. Zamora saw the patient in consultation. At this point, the plan that was discussed between Dr. Zamora and the patient's healthcare proxy, her , is for the patient to go to [facility] for rehabilitation. If she continues to deteriorate clinically, she would be a candidate for hospice. Please note that the patient did remarkably well throughout her hospital stay. She graduated from BiPAP back to her baseline nasal cannula. Currently, she is comfortable. Her vitals are stable. Her hemoglobin decreased only slightly throughout her hospital stay. She is in good spirits and very pleasant and conversational. She is going to be discharged to [facility] today. PHYSICAL EXAMINATION AT TIME OF DISCHARGE: Vital Signs: Blood pressure 145/90, heart rate of 84 and regular, respiratory rate 20, oxygen saturation 97% on 3 L of oxygen nasal cannula, and temperature 97.4. General: The patient is a very pleasant 84-year-old female who is in no acute distress. The patient is alert and oriented x3. HEENT: Head: Atraumatic, normocephalic. Eyes: Pupils are equal, reactive to light and accommodation. Oropharynx: Clear. Mucosa moist. Neck: Supple. No JVD. No bruits bilaterally. Cardiovascular: Regular rate and rhythm. No murmur. Respiratory: Faint crackles at bilateral bases. Abdomen: Soft and nontender. Bowel sounds are present in all 4 quadrants. Extremities: No edema. Pulses are 2+ bilaterally. No clubbing or cyanosis. Neuro Evaluation: Speech is clear. Cranial nerves II through XII are grossly intact. Motor strength is 5/5 bilaterally. Please note that this is a short summary of the patient's hospitalization. Please refer to further medical records for details. TIME SPENT: Approximately 45 minutes were spent on the patient's discharge. [id number]/[facility] #: [id number] COREY
[2019-11-06 13:47] VITALS: BP 142/64
== END 2019-11-06 12:25 | DRG 280 ==
LOC: ED 09:53 → ICU 13:24 → MEDTELE 11-04 10:29
PROVIDERS: ADMIT Internal Medicine; ATTEND Internal Medicine
PROC: 5A09357 Assistance with Respiratory Ventilation, Less than 24 Consecutive Hours, Continuous Positive Airway Pressure (ICD-10-PCS; principal; 2019-11-03)
DX: I21.4 Non-ST elevation (NSTEMI) myocardial infarction (principal); J96.21 Acute and chronic respiratory failure with hypoxia; K92.1 Melena; I50.22 Chronic systolic (congestive) heart failure; G45.8 Other transient cerebral ischemic attacks and related syndromes; R78.81 Bacteremia; I13.0 Hypertensive heart and chronic kidney disease with heart failure and stage 1 through stage 4 chronic kidney disease, or unspecified chronic kidney disease; I73.9 Peripheral vascular disease, unspecified; I25.10 Atherosclerotic heart disease of native coronary artery without angina pectoris; E78.00 Pure hypercholesterolemia, unspecified; J45.909 Unspecified asthma, uncomplicated; M81.0 Age-related osteoporosis without current pathological fracture; M79.7 Fibromyalgia; I05.0 Rheumatic mitral stenosis; R13.10 Dysphagia, unspecified; B96.20 Unspecified Escherichia coli [E. coli] as the cause of diseases classified elsewhere; R33.9 Retention of urine, unspecified; K59.09 Other constipation; F01.50 Vascular dementia, unspecified severity, without behavioral disturbance, psychotic disturbance, mood disturbance, and anxiety; G43.909 Migraine, unspecified, not intractable, without status migrainosus; F41.9 Anxiety disorder, unspecified; F32.9 Major depressive disorder, single episode, unspecified; Z96.698 Presence of other orthopedic joint implants; I44.7 Left bundle-branch block, unspecified; Z66 Do not resuscitate; M35.3 Polymyalgia rheumatica; N18.3 Chronic kidney disease, stage 3 (moderate); M19.042 Primary osteoarthritis, left hand; M19.041 Primary osteoarthritis, right hand; M19.072 Primary osteoarthritis, left ankle and foot; M19.071 Primary osteoarthritis, right ankle and foot; R62.7 Adult failure to thrive; Z88.8 Allergy status to other drugs, medicaments and biological substances; Z85.828 Personal history of other malignant neoplasm of skin; Z88.6 Allergy status to analgesic agent; Z88.1 Allergy status to other antibiotic agents; Z91.018 Allergy to other foods; Z87.891 Personal history of nicotine dependence; I25.2 Old myocardial infarction; Z93.1 Gastrostomy status; Z95.5 Presence of coronary angioplasty implant and graft; Z86.73 Personal history of transient ischemic attack (TIA), and cerebral infarction without residual deficits; Z99.81 Dependence on supplemental oxygen; Z68.22 Body mass index [BMI] 22.0-22.9, adult
CPT/HCPCS: 36415; 71045; 80048; 80053; 81003; 81015; 82270; 82550; 82553; 82803; 83605; 83880; 84484; 85025; 85610; 85730; 86140; 86850; 86900; 86901; 87040; 87077; 87086; 87186; 87205; 87641; 93005; 93306; 94660; 99285; A9270-GY; G8978-GP-CK; G8979-GP-CI; G8987-GO-CK; G8988-GO-CI; J0696; J1630; J1940; J2270; J2543; J3490; J7512